=== PATIENT | female | born 1990 | race Two or more races ===

== ENCOUNTER 2020-09-18 14:56 | Outpatient (RCR) | payer OTHER, MEDICAID, SELFPAY ==
--- NOTE | 2020-11-03 09:23 | MHC.OT.DC ---
[address] [phone] F: [phone] Occupational Therapy Discharge Note Provider: Dr. Livingston Diagnosis: Left wrist pain Date of Surgery: Date of Evaluation: 09/18/20 Date of Discharge: Treatments to Date: 1 Cancellations to Date: 0 No Shows to Date: 2 Discharge Status: Visit Non-compliance Discharge Summary: See eval for details Initially required AAROM for wrist and for digit ROM . Improved to WNL after eval and short treatment. Electronically Signed By: Sonal Buckley OT CHT CLT Reviewed/agree with student documentation: N/A Therapist: Please Sign and return to therapist, thank you for your referral.
== END 2020-11-03 09:24 | disposition other institution (70) ==
LOC: HO.OT 14:56
PROVIDERS: PCP Internal Medicine; Visit Provider General Practice
DX: M25.532 Pain in left wrist (principal)
CPT/HCPCS: 97110; 97165

== ENCOUNTER 2022-03-23 14:56 | Emergency (ER) | payer MEDICAID, SELFPAY ==
--- NOTE | ~2022-03-23 | XR_ITS ---
EXAMINATION: XR CHEST CLINICAL INFORMATION: Rule out pneumonia COMPARISON: 11/29/2018 TECHNIQUE: Frontal view of the chest was obtained. FINDINGS: The lungs are clear with no focal consolidation. No evidence of pneumothorax, pulmonary edema, or pleural effusions. The cardiomediastinal silhouette is unremarkable. No acute osseous findings. XR/XR chest 1V IMPRESSION: No acute cardiopulmonary findings.
[2022-03-23 15:17] VITALS: BP 142/92; PULSE 104; RESP 20; TEMP 36.2; O2SAT 100; BMI 39.4
[2022-03-23 15:53] LABS: COVID-19 Test Negative (Negative)
[2022-03-23 19:04] VITALS: BP 132/89; PULSE 98; RESP 20; O2SAT 98
[2022-03-23 22:45] VITALS: BP 123/83; PULSE 99; TEMP 36.2; O2SAT 98
--- NOTE | 2022-03-23 22:52 | ED_ITS ---
HPI - SOB/Dyspnea General Chief Complaint: Dyspnea Stated Complaint: asthma Time Seen by Provider: 03/23/22 22:35 Source: patient Mode of arrival: ambulatory Limitations: no limitations History of Present Illness HPI Narrative: Patient comes to the emergency room complaining of asthma and cough for 2 weeks. Last week patient was prescribed azithromycin, prednisone and Robitussin. Patient states that she has not improved. Patient has been using her albuterol pump every 4-6 hours without any relief. Patient denies fever chills, no chest pain. Related Data Previous Rx's Medication Instructions Recorded albuterol sulfate 90 mcg/actuation 2 puff inhalation Q4-6H PRN 03/23/22 aerosol inhaler shortness of breath or wheezing #8.5 grams benzonatate 100 mg capsule 100 mg PO TID PRN cough #12 caps 03/23/22 prednisone 50 mg tablet 50 mg PO DAILY #5 tabs 03/23/22 Allergies Allergy/AdvReac Type Severity Reaction Status Date / Time No Known Allergies Allergy Unverified 02/03/20 19:18 [No Known Allergies*] Review of Systems Review of Systems: Constitutional : No Weight loss, No Fever, No Chills, No Night Sweats, No Fatigue, No Malaise ENT/Mouth : No Hearing loss, No Ear Pain, No Nasal Congestion, No Sinus Pain, No Hoarseness, No sore throat, No Rhinorrhea, No Swallowing Difficulty Eyes: No Eye Pain, No Swelling, No Redness, No Foreign Body, No Discharge, No Vision Changes Cardiovascular : No Chest Pain, No SOB, No Dyspnea on Exertion, No Orthopnea, No Edema, No Palpitations Respiratory : Complaining of cough, wheezing, shortness of breath Gastrointestinal : No Nausea, No Vomiting, No Diarrhea, No Constipation, No abdominal Pain, No Hematochezia, No Melena Genitourinary : no irregular bleeding, No Dysuria, No Urinary Frequency, No Hematuria, No Urinary Incontinence, No Urgency, No Flank Pain, No Urinary Flow Changes, No Hesitancy Musculoskeletal : No joint pain, No Myalgias, No Joint Swelling Skin : No Skin Lesions, No rash Neuro : No Weakness, No Numbness, No Paresthesias, No Loss of Consciousness, No Dizziness, No Headache Psych : No Anxiety/Panic, No Depression, No SI/HI/AH/VH, No Social Issues, Heme/Lymph: No Bruising, No Bleeding,No Lymphadenopathy Endocrine : No Polyuria, No Polydipsia, No Temperature Intolerance [facility] Past Medical History Medical History (Updated 03/23/22 @ 23:50 by Tiara Perez MD) Asthma Social History Social History Advance Directives: No Advance Directives Information Provided: No Physical Exam Vital Signs: Vital Signs: Last Vital Signs Temp 97.1 F 03/23/22 22:45 Pulse 85 03/23/22 23:01 Resp 18 03/23/22 23:01 BP 123/83 03/23/22 22:45 Pulse Ox 98 03/23/22 22:45 O2 Del Method 03/23/22 22:45 BMI result Body Mass Index 39.4 Const: Other: Appearance: Alert. Oriented X3. No acute distress. Eyes: Pupils equal, round and reactive to light. ENT: Pharynx normal. Patient has nasal condition Neck: Normal inspection. Neck supple. No lymph nodes noted. No crepitus CVS: Normal heart rate and rhythm. Pulses normal. Normal S1 and S2 Respiratory: No respiratory distress. Very mild wheezing bilaterally Abdomen: Soft and nontender. No rigidity. No distention. Skin: Skin warm and dry. Normal skin color. Normal skin turgor. Extremities: No lower extremity edema. No Lacerations. No Rash Neuro: Oriented X 3. No motor deficit. No sensory deficit. Moving all extremities. No slurred speech. CN 2 through 12 grossly intact Psych: calm, cooperative, normal affect Course Course Course Narrative: Patient is being given IV Solu-Medrol, magnesium a nebulization treatments. His chest x-ray pending Patient feeling better, still having hoarse voice, no significant airway inflammation or erythema or exudates. No wheezing, oxygen saturation 100% on room air. Chest x-ray negative for pneumonia. Results discussed with the patient MDM - SOB/Dyspnea Lab Data Labs: Lab Results 03/23/22 Range/Units 15:30 COVID-19 (JOMAR) Negative (Negative) COVID-19 Clin Com See Note Imaging Data Chest x-ray: Radiologist's impression: FINDINGS: The lungs are clear with no focal consolidation. No evidence of pneumothorax, pulmonary edema, or pleural effusions. The cardiomediastinal silhouette is unremarkable. No acute osseous findings. XR/XR chest 1V IMPRESSION: No acute cardiopulmonary findings. ? Discharge Plan Discharge Clinical Impression: Asthma Patient Disposition: Home, Self-Care Instructions: Asthma (ED) Additional Instructions: Please follow-up with your primary care physician tomorrow. If you have any worsening or new symptoms, please return to the emergency room or call 911 Prescriptions: New prednisone 50 mg tablet 50 mg PO DAILY Qty: 5 0RF albuterol sulfate 90 mcg/actuation HFA aerosol inhaler 2 puff inhalation Q4-6H PRN (Reason: shortness of breath or wheezing) Qty: 8.5 0RF benzonatate 100 mg capsule 100 mg PO TID PRN (Reason: cough) Qty: 12 0RF
[2022-03-23] MEDS: Albuterol Sulfate (0.083%) 2.5 MG/3 ML VIAL.NEB 5 MG INHALE (22:59)
[2022-03-23 23:01] VITALS: PULSE 85; RESP 18; O2SAT 100
[2022-03-23] MEDS: Benzonatate 100 MG CAPSULE PO (23:34)
[2022-03-23] MEDS: methylPREDNISolone Sod Succ 125 MG/2 ML VIAL IVPUSH (23:34)
[2022-03-23] MEDS: Magnesium Sulfate/H2O 2 GM/50 ML PIGGYBACK IV (23:37)
--- NOTE | 2022-03-23 23:52 | PC.NURSE ---
pt a&ox3, vss, 20G IV placed left AC, medicated per provider order.
== END 2022-03-24 00:27 | disposition home or self-care (01) ==
PROVIDERS: Emergency Provider Emergency Medicine; PCP Internal Medicine
DX: J45.909 Unspecified asthma, uncomplicated (principal); Z20.822 Contact with and (suspected) exposure to COVID-19
CPT/HCPCS: 71045; 87635; 94640; 96374; 96375; 99284; J2930; J3475

== ENCOUNTER 2022-11-17 16:59 | Emergency (ER) | payer MEDICAID, SELFPAY ==
[2022-11-17 17:41] VITALS: BP 133/92; PULSE 100; RESP 18; TEMP 36.1; O2SAT 99; BMI 39.3
--- NOTE | 2022-11-17 17:44 | ED.GENADULT ---
HPI - General Adult General Chief complaint: Eye Problems Stated complaint: pink eye? swollen? Time Seen by Provider: 11/17/22 22:14 Source: patient Mode of arrival: ambulatory Limitations: no limitations History of Present Illness HPI narrative: 31-year-old female came in for evaluation of right eye pain, redness, discharge, eyelid stickingx 1 day, no sick contact, no trauma, no exposure to somebody with eye infection, do not wear contact lenses, do not wear eyeglasses. Related Data Previous Rx's Medication Instructions Recorded albuterol sulfate 90 mcg/actuation 2 puff inhalation Q4-6H PRN 03/23/22 aerosol inhaler shortness of breath or wheezing #8.5 grams benzonatate 100 mg capsule 100 mg PO TID PRN cough #12 caps 03/23/22 prednisone 50 mg tablet 50 mg PO DAILY #5 tabs 03/23/22 erythromycin 5 mg/gram (0.5 %) eye 0.5 inch ophthalmic (eye) QID #3.5 11/17/22 ointment grams Allergies Allergy/AdvReac Type Severity Reaction Status Date / Time latex Allergy Rash Verified 11/17/22 17:41 Review of Systems Review of Systems: All other systems are reviewed and are negative Constitutional: Reports as per HPI and Reports no additional constitutional complaints Eyes: Reports as per HPI and Reports no additional eye complaints Reports system reviewed and no additional complaints, except as documented Cardiovascular: Reports as per HPI and Reports no additional cardiovascular complaints Respiratory: Reports as per HPI and Reports no additional respiratory complaints Gastrointestinal: Reports as per HPI and Reports no additional gastrointestinal complaints Genitourinary: Reports no additional female genitourinary complaints Musculoskeletal: Reports no additional musculoskeletal complaints Skin/Breast: Reports system reviewed and no additional complaints, except as docu Psychiatric: Reports no additional psychiatric complaints Endocrine: Reports no additional endocrine complaints Hematologic/Lymphatic: Reports no additional hematologic/lymphatic complaints Allergic/Immunologic: Reports no additional allergic/immunologic complaints Reports system reviewed and no additional complaints, except as documented and Reports Abnormal speech present [facility] Past Medical History Medical History Asthma Social History Social History Advance Directives: No Advance Directives Information Provided: No Physical Exam ED Vital Signs: Vital Signs - 24 hr 11/17/22 17:41 Temperature 96.9 F Pulse Rate 100 Respiratory Rate 18 Blood Pressure 133/92 H Pulse Oximetry 99 Oxygen Delivery Method Room Air BMI result Body Mass Index 39.3 Vital signs have been reviewed as appeared to be correct. Blood pressure normal. Heart rate normal. Respiration rate normal. Temperature normal. Oxygen saturation normal. Appearance: Alert. Oriented X3. No acute distress. Head: Normal external exam. Normocephalic. Atraumatic. No Austin signs noted. No raccoon eyes noted Eyes: PERRLA. EOMI. Conjunctiva and sclera normal. Eyelids normal, right eye redness, with discharge, no corneal fluorescein uptake, no foreign body, IOP in the right eye is 12 ENT: TM's Normal. Pharynx normal. Uvula midline. Moist mucous membranes. No trismus noted. No drooling noted. No muffled voice noted. Neck: Normal inspection. Neck supple. FROM. No adenopathy. Thyroid Normal. No meningeal signs. No neck mass noted. CVS: Normal heart rate and rhythm. Heart sound normal. No murmurs noted. Pulses normal throughout. Respiratory: No respiratory distress. Painless inspiration. Breath sounds normal. No wheezes/rales/rhonchi noted. Chest nontender. No accessory muscle usage noted or decreased air movement noted. Abdomen: Soft and nontender. Bowel sounds normal in all 4 quadrants. No distention noted. No organomegaly noted. No visible injury noted. Back: No CVA tenderness. Full range of motion noted. Skin: Skin warm and dry. Normal skin color. Normal skin turgor. No rashes/lesions/lacerations noted. Extremities: No lower extremity edema. Extremities exhibit normal range of motion. Extremities nontender. Neuro: Oriented X 3. Cranial nerve exam: II-XII are grossly intact No motor deficit. No sensory deficit. Reflexes normal. Course Course Course Narrative: RME: 31 yold female presents to the ED for right right eye redness, itchiness, and eye dischargee. patient denies any trauma. Evaluated in [facility] Reevaluation(s) Reevaluation #1: Right conjunctivitis, start the patient on erythromycin, instructed to do frequent hand wash. Medications Administered Discontinued Medications Generic Name Dose Route Start Last Admin Trade Name Freq PRN Reason Stop Dose Admin Erythromycin 1 cm 11/17/22 22:23 07/02/23 22:27 Erythromycin Base 0.5% Oph Oin 1 Gm Tube EYE-RIGHT 11/17/22 22:24 1 cm ONCE ONE Administration Erythromycin 1 cm 11/17/22 22:22 11/17/22 22:27 Erythromycin Base 0.5% Oph Oin 1 Gm Tube EYE-RIGHT 11/17/22 22:23 1 cm ONCE ONE Administration Medical Decision Making Differential Diagnosis Differential Diagnoses: The differential diagnosis associated with the presentation includes (Corneal abrasion, conjunctivitis.) Discharge Plan Discharge Clinical Impression: Conjunctivitis Patient Disposition: Home, Self-Care Instructions: Conjunctivitis (ED) Prescriptions: New erythromycin 5 mg/gram (0.5 %) ointment 0.5 inch ophthalmic (eye) QID Qty: 3.5 0RF Rx Instructions: Apply to the right eye every 6 hours when awake for 5 days. No Action prednisone 50 mg tablet 50 mg PO DAILY Qty: 5 0RF albuterol sulfate 90 mcg/actuation HFA aerosol inhaler 2 puff inhalation Q4-6H PRN (Reason: shortness of breath or wheezing) Qty: 8.5 0RF benzonatate 100 mg capsule 100 mg PO TID PRN (Reason: cough) Qty: 12 0RF Referrals: Marisa Livingston MD [Primary Care Provider] - Stand Alone Forms: Work/School Release Interventions: ED Discharge Assessment Last Done: 11/17/22 23:22 Discharge Date/Time: 11/17/22 23:24
--- NOTE | 2022-11-17 22:30 | PC.NURSE ---
pt medicated per KIYA w/ erythromycin eye ointment- pt pending disposition
== END 2022-11-17 23:24 | disposition home or self-care (01) ==
PROVIDERS: Emergency Provider Emergency Medicine; PCP Internal Medicine
DX: H57.11 Ocular pain, right eye (principal); H10.9 Unspecified conjunctivitis
CPT/HCPCS: 99282; 99283

== ENCOUNTER 2022-12-09 13:20 | Outpatient (REF) | payer MEDICAID, SELFPAY ==
[2022-12-09 16:18] LABS: MANUAL DIFF FLAG NO
[2022-12-09 16:31] LABS: Basophils Percent Auto 0.5 % (0-2); Eosinophils Absolute Auto 0.4 X10*3/uL (0.0-0.4); Eosinophils Percent Auto 7.3 % (0-4); Hematocrit 31.9 % (37.0-47.0); Hemoglobin 9.4 g/dl (12.0-16.0); Imm Gran Abs Auto 0.01 X10*3/uL (0.00-0.03); Imm Gran Pct Auto 0.2 % (0.0-0.4); Lymphocytes Absolute Auto 1.5 X10*3/uL (1.2-4.9); Lymphocytes Percent Auto 25.2 % (20-40); Mean Corpuscular HGB Conc 29.5 g/dl (31.0-35.0); Mean Corpuscular Volume 67.9 fL (80.0-98.0); Mean Platelet Volume 10.3 fL (9.4-12.3); Monocytes Absolute Auto 0.6 X10*3/uL (0.1-1.2); Monocytes Percent Auto 9.3 % (2-11); Neutrophils Absolute Auto 3.4 x10*3/uL (2.0-8.3); Neutrophils Percent Auto 57.5 % (45-73); Platelet Count 316 X10*3/uL (160-400); Red Cell Distribution Width 17.2 % (11.0-16.0)
[2022-12-09 16:48] LABS: Estimated Average Glucose 100 mg/dL; Hemoglobin A1c % 5.1 %
[2022-12-09 16:55] LABS: Alanine Aminotransferase 13 U/L (0-31); Albumin Level 4.3 g/dL (3.5-5.0); Alkaline Phosphatase 62 U/L (39-117); Anion Gap 10 (12-20); Aspartate Amino Transferase 14 U/L (5-31); Bilirubin Direct 0.3 mg/dL (0.0-0.5); Bilirubin Total 0.6 mg/dL (0.0-1.0); Blood Urea Nitrogen 10 mg/dL (9-16); Calcium 9.5 mg/dL (8.4-10.2); Carbon Dioxide 29 mmol/L (22-29); Chloride 107 mmol/L (96-108); Cholesterol 114 mg/dL; Estimated Glomerular Filt Rate > 60; Glucose Random 89 mg/dL (60-115); HDL Cholesterol 38 mg/dL; Iron 23 mcg/dL (30-160); LDL Cholesterol Calculated 65 mg/dl; Percent Iron Saturation 7 % (15-50); Potassium 3.8 mmol/L (3.3-5.1); Sodium 142 mmol/L (135-145); Total Iron Binding Capacity 343 mcg/dL (228-428); Total Protein 7.5 g/dL (6.5-8.0); Triglycerides 56 mg/dL; Unsaturated Iron Binding 320 ug/dL
[2022-12-09 17:02] LABS: Ferritin 5 ng/mL (10-122); TSH reflex Free T4 0.79 uIU/mL (0.32-4.0); Vitamin D 25-OH Total 11.4 ng/mL (>30)
[2022-12-10 06:12] LABS: HIV AB/AG Nonreactive (Nonreactive); HIV Num 1 0.04 S/CO (0.00-0.99)
[2022-12-10 22:49] LABS: Rubella IgG Antibody 8.65 Index
[2022-12-11 08:51] LABS: Syphilis Screen Nonreactive (Nonreactive)
[2022-12-11 22:59] LABS: TS Negative Control Passed; TS Panel A 0; TS Panel B 0; TS Positive Control Passed; TSpotTB Negative (Negative)
== END 2022-12-09 13:21 | disposition home or self-care (01) ==
LOC: HO.HHCL 13:20
PROVIDERS: Visit Provider Internal Medicine
DX: Z00.00 Encounter for general adult medical examination without abnormal findings (principal); Z11.1 Encounter for screening for respiratory tuberculosis; Z11.4 Encounter for screening for human immunodeficiency virus [HIV]; E66.09 Other obesity due to excess calories; J45.40 Moderate persistent asthma, uncomplicated; N93.9 Abnormal uterine and vaginal bleeding, unspecified
CPT/HCPCS: 36415; 80053; 80061; 82248; 82306; 82728; 83036; 83540; 84443; 85025; 86481; 86735; 86762; 86765; 86780; 87389

== ENCOUNTER 2023-01-09 14:34 | Outpatient (AMB) | payer MEDICAID, SELFPAY ==
--- NOTE | 2023-01-09 14:42 | A.OFFVIS_ITS ---
Intake Vital Signs 01/09/23 14:43 Height 5 ft 4 in Weight 220 lb 7.396 oz BMI 37.8 BP 119/70 Blood Pressure Location Lt brachial Position Sitting Pulse 83 Pulse Source Pulse Oximeter Pulse Oximetry (%) 100 Oxygen Delivery Method Room Air Intake Visit Reasons: Shortness of breath Allergies latex Allergy (Verified 01/09/23 14:47) Rash HPI Shortness of breath HPI Details 32-year-old lady, nonsmoker, with underlying history what appears to be moderate persistent asthma referred for pulmonary evaluation. Patient states that previously his symptoms were not well controlled with Flovent, however she has been switched to Advair by her primary care provider and she reports much better symptom control. She only uses her albuterol once a day. Patient has unspecified history of lung disease in her mother with now . She denies exposure to industrial dusts. Patient does not have pets. She does complain of multiple environmental allergies. [facility] Medical History Asthma Social History (Updated 01/09/23 @ 14:50 by Mercedes Martin [facility]) Patient Tobacco Use Status: Former Tobacco user Review of Systems Const Denies daytime sleepiness, Denies excessive sweating, Denies fatigue, Denies fever(s), Denies lethargy, Denies malaise, Denies night sweats, Denies snoring and Denies weight loss Eyes Denies blurry vision and Denies itchy eyes ENT Denies nasal congestion, Denies post nasal drip, Denies sinus pain, Denies sinus pressure and Denies other ( Thrush) Card Denies chest pain, Denies pedal edema, Denies dyspnea, Denies orthopnea and Denies paroxysmal nocturnal dyspnea Resp Denies cough, Denies hemoptysis, Denies excessive phlegm production, Denies dyspnea, Denies snoring and Denies wheezing GI Denies abdominal pain and Denies heartburn Musc Denies myalgias, Denies arthralgias and Denies joint swelling Skin/Breast Denies rash Neuro Denies memory loss and Denies seizure-like activity Psych Denies abnormal sleep pattern, Denies anxiety and Denies memory loss Endo Denies excessive sweating, Denies fatigue and Denies heat intolerance Rick/Lymph Denies easy bruising Aller/Immun Denies itchy eyes, Denies seasonal rhinorrhea and Denies wheezing Physical Exam Vital Signs: Last Vital Signs Pulse 83 01/09/23 14:43 BP 119/70 01/09/23 14:43 Pulse Ox 100 01/09/23 14:43 Oxygen Delivery Method Room Air 01/09/23 14:43 BMI result Body Mass Index 37.8 Const General: no acute distress and alert Nutritional Appearance: obese Orientation/consciousness: Other orientation findings ( oriented) HEENT Head: Yes atraumatic Eyes General: appearance normal, both eyes and all related structures Sclerae: sclerae normal EOM: EOMs intact bilaterally Neck Neck: Yes supple Lymphatic: no lymphadenopathy noted Resp Effort & Inspection: normal respiratory effort and no use of accessory muscles Auscultation: clear to auscultation bilaterally Cardio Rate: regular rate Rhythm: regular rhythm Heart sounds: no gallops, no murmurs and no rubs Skin General skin exam: other ( warm) Extrem General: No clubbing, No cyanosis and No edema Assessment & Plan Assessment & Plan (1) Environmental allergies: Code(s): Z91.09 - Other allergy status, other than to drugs and biological substances Plan: Will obtain RAST, CBC differential, and IgE level for further evaluation. (2) Asthma: Code(s): J45.909 - Unspecified asthma, uncomplicated Plan: Reasonably well controlled current regimen of albuterol MDI and Advair. Continue current regimen. Will obtain full PFT. Orders: Orders Rast Allergen Today J45.909 - Unspecified asthma, uncomplicated Complete Blood Count Auto Diff Today J45.909 - Unspecified asthma, uncomplicated Coding Level of Care Code New Pt Level 4 (39536) Diagnoses Environmental allergies Z91.09 Asthma J45.909
[2023-01-09 14:43] VITALS: BP 119/70; PULSE 83; O2SAT 100; BMI 37.8
== END 2023-01-09 15:11 | disposition home or self-care (01) ==
PROVIDERS: PCP Internal Medicine; Visit Provider Internal Medicine Pulmonary Disease
DX: Z91.09 Other allergy status, other than to drugs and biological substances (principal); J45.909 Unspecified asthma, uncomplicated
CPT/HCPCS: 99204

== ENCOUNTER 2023-01-09 14:34 | Outpatient (REF) | payer MEDICAID, SELFPAY ==
[2023-01-09 15:31] LABS: MANUAL DIFF FLAG NO
[2023-01-09 15:52] LABS: Basophils Percent Auto 0.4 % (0-2); Eosinophils Absolute Auto 0.5 X10*3/uL (0.0-0.4); Eosinophils Percent Auto 7.5 % (0-4); Hematocrit 32.2 % (37.0-47.0); Hemoglobin 9.8 g/dl (12.0-16.0); Imm Gran Abs Auto 0.01 X10*3/uL (0.00-0.03); Imm Gran Pct Auto 0.1 % (0.0-0.4); Lymphocytes Absolute Auto 1.9 X10*3/uL (1.2-4.9); Lymphocytes Percent Auto 27.7 % (20-40); Mean Corpuscular HGB Conc 30.4 g/dl (31.0-35.0); Mean Corpuscular Hemoglobin 21.4 pg (27.0-33.0); Mean Corpuscular Volume 70.2 fL (80.0-98.0); Mean Platelet Volume 9.8 fL (9.4-12.3); Monocytes Absolute Auto 0.7 X10*3/uL (0.1-1.2); Monocytes Percent Auto 9.5 % (2-11); Neutrophils Absolute Auto 3.7 x10*3/uL (2.0-8.3); Neutrophils Percent Auto 54.8 % (45-73); Platelet Count 277 X10*3/uL (160-400); Red Blood Count 4.59 X10*6/uL (4.20-5.50); Red Cell Distribution Width 21.8 % (11.0-16.0); White Blood Count 6.8 X10*3/uL (4.8-10.8)
== END 2023-01-09 14:35 | disposition home or self-care (01) ==
LOC: HO.LAB 14:34
PROVIDERS: PCP Internal Medicine; Visit Provider Internal Medicine Pulmonary Disease
DX: J45.909 Unspecified asthma, uncomplicated (principal); Z91.09 Other allergy status, other than to drugs and biological substances
CPT/HCPCS: 36415; 82785; 85025; 86003; 99202

== ENCOUNTER 2023-02-03 08:28 | Outpatient (REF) | payer MEDICAID, SELFPAY ==
--- NOTE | 2023-02-03 10:14 | PFT_ITS ---
FLOWS: 1. FEV1 71% of predicted at 2.24 L. 2. FVC 68% of predicted at 2.54 L. 3. FEV1 to FVC ratio of 0.88. 4. No bronchodilator response. LUNG VOLUMES: 1. Total lung capacity 68% of predicted at 3.46 L. 2. Residual volume 85% of predicted at 1.25 L. 3. Slow vital capacity 61% of predicted at 2.30 L. 4. Expiratory reserve volume 19% of predicted at 0.26 L. 5. Diffusion capacity is mildly decreased, diffusion capacity corrects to normal after adjustment for alveloar ventilation. IMPRESSION: Moderate restrictive ventilatory defect with no bronchodilator response. Decreased expiratory reserve volume suggests extrathoracic restriction secondary to abdominal obesity. Decreased diffusion capacity suggests emphysema. Seymour Parada MD AP/MODL / [id number]
== END 2023-02-03 08:29 | disposition home or self-care (01) ==
LOC: HO.RESP 08:28
PROVIDERS: PCP Internal Medicine; Visit Provider Internal Medicine Pulmonary Disease
DX: J45.909 Unspecified asthma, uncomplicated (principal)
CPT/HCPCS: 94010; 94727; 94729

== ENCOUNTER → 2023-02-03 10:14 | Outpatient (BNV) | payer MEDICAID, SELFPAY | PROVIDERS: PCP Internal Medicine; Visit Provider Internal Medicine Pulmonary Disease | DX: J45.909 Unspecified asthma, uncomplicated (principal) | CPT/HCPCS: 94060; 94727; 94729 ==

== ENCOUNTER 2023-02-12 12:52 | Outpatient (AMB) | payer MEDICAID, SELFPAY ==
[2023-02-12 12:58] VITALS: BP 118/82; PULSE 93; O2SAT 100; BMI 35.9
--- NOTE | 2023-02-12 12:58 | MHC.OFFVIS ---
Intake Vital Signs 02/12/23 12:58 Height 5 ft 4 in Weight 209 lb 7.026 oz BMI 35.9 BP 118/82 Blood Pressure Location Rt brachial Position Sitting Pulse 93 Pulse Source Doppler Pulse Oximetry (%) 100 Oxygen Delivery Method Room Air Intake Visit Reasons: Shortness of breath Allergies latex Allergy (Verified 01/09/23 14:47) Rash HPI Shortness of breath HPI Details 32-year-old lady, nonsmoker, followed for underlying severe persistent asthma and environmental allergies. At the last office visit patient completed her pulmonary function test and immunologic testing. She has been using high-dose Advair 230 with suboptimal control of his symptoms. She denies acute exacerbations. [facility] Medical History Asthma Social History Patient Tobacco Use Status: Former Tobacco user Review of Systems Const Denies daytime sleepiness, Denies excessive sweating, Denies fatigue, Denies fever(s), Denies lethargy, Denies malaise, Denies night sweats, Denies snoring and Denies weight loss Eyes Denies blurry vision and Denies itchy eyes ENT Denies nasal congestion, Denies post nasal drip, Denies sinus pain, Denies sinus pressure and Denies other ( Thrush) Card Denies chest pain, Denies pedal edema, Denies dyspnea, Reports dyspnea on exertion, Denies orthopnea and Denies paroxysmal nocturnal dyspnea Resp Denies cough, Denies hemoptysis, Denies excessive phlegm production, Denies dyspnea, Reports dyspnea on exertion, Denies snoring and Reports wheezing GI Denies abdominal pain and Denies heartburn Musc Denies myalgias, Denies arthralgias and Denies joint swelling Skin/Breast Denies rash Neuro Denies memory loss and Denies seizure-like activity Psych Denies abnormal sleep pattern, Denies anxiety and Denies memory loss Endo Denies excessive sweating, Denies fatigue and Denies heat intolerance Rick/Lymph Denies easy bruising Aller/Immun Denies itchy eyes, Denies seasonal rhinorrhea and Reports wheezing Physical Exam Vital Signs: Last Vital Signs Pulse 93 02/12/23 12:58 BP 118/82 02/12/23 12:58 Pulse Ox 100 02/12/23 12:58 Oxygen Delivery Method Room Air 02/12/23 12:58 BMI result Body Mass Index 35.9 Const General: no acute distress and alert Nutritional Appearance: obese Orientation/consciousness: Other orientation findings ( oriented) HEENT Head: Yes atraumatic Eyes General: appearance normal, both eyes and all related structures Sclerae: sclerae normal EOM: EOMs intact bilaterally Neck Neck: Yes supple Lymphatic: no lymphadenopathy noted Resp Effort & Inspection: normal respiratory effort and no use of accessory muscles Auscultation: clear to auscultation bilaterally Cardio Rate: regular rate Rhythm: regular rhythm Heart sounds: no gallops, no murmurs and no rubs Skin General skin exam: other ( warm) Extrem General: No clubbing, No cyanosis and No edema Assessment & Plan Assessment & Plan (1) Asthma: Code(s): J45.909 - Unspecified asthma, uncomplicated Plan: Suboptimal control on Advair 230 and albuterol MDI. Will request Fasenra approval. (2) Environmental allergies: Code(s): Z91.09 - Other allergy status, other than to drugs and biological substances Plan: Results of IgE, CBC with differential, and RAST panel reviewed. Underlying significant eosinophilia. Expect to improve on Fasenra. Medications: Changed From fluticasone propion-salmeterol 230-21 mcg/actuation (Advair HFA) 2 puffs inhalation To fluticasone propion-salmeterol 230-21 mcg/actuation (Advair HFA) 2 puffs inhalation BID 12 grams 6RF 30 days Coding Level of Care Code Est Pt Level 4 (87777) Diagnoses Asthma J45.909 Environmental allergies Z91.09
== END 2023-02-12 13:15 | disposition home or self-care (01) ==
PROVIDERS: PCP Internal Medicine; Visit Provider Internal Medicine Pulmonary Disease
DX: J45.909 Unspecified asthma, uncomplicated (principal); Z91.09 Other allergy status, other than to drugs and biological substances
CPT/HCPCS: 99214

== ENCOUNTER → 2023-02-12 12:52 | Outpatient (BNVA) | payer MEDICAID, SELFPAY | PROVIDERS: PCP Internal Medicine; Visit Provider Internal Medicine Pulmonary Disease | DX: J45.909 Unspecified asthma, uncomplicated (principal); Z91.09 Other allergy status, other than to drugs and biological substances | CPT/HCPCS: 99212 ==

== ENCOUNTER 2023-05-13 17:00 | Outpatient (RCR) | payer MEDICAID, SELFPAY | END 2023-05-28 12:32 | disposition home or self-care (01) | LOC: HO.PT 17:00 | PROVIDERS: PCP Internal Medicine; Visit Provider Internal Medicine | DX: M25.512 Pain in left shoulder (principal); G89.29 Other chronic pain | CPT/HCPCS: 97110; 97162 ==

== ENCOUNTER 2023-06-25 13:19 | Outpatient (AMB) | payer MEDICAID, SELFPAY ==
--- NOTE | 2023-06-25 13:30 | MHC.OFFVIS ---
Intake Vital Signs 06/25/23 13:32 Height 5 ft 4 in Weight 195 lb 1.745 oz BMI 33.5 BP 118/78 Blood Pressure Location Rt brachial Position Sitting Pulse 96 Pulse Source Doppler Pulse Oximetry (%) 100 Oxygen Delivery Method Room Air Intake Visit Reasons: Shortness of breath Pl Sql Developer Required: Yes Pl Sql Developer Name: Mercedes Manfred Pathak Allergies latex Allergy (Verified 06/25/23 13:32) Rash HPI Shortness of breath HPI Details 32-year-old lady, nonsmoker, followed for underlying severe persistent asthma and environmental allergies. A she has been using Advair and albuterol MDI with suboptimal control his symptoms. She was approved for Fasenra, however she has not started it yet. She denies an acute exacerbation. [facility] Medical History Asthma Social History (Reviewed 06/25/23 @ 13:33 by Mercedes Martin [facility]) Patient Tobacco Use Status: Former Tobacco user Review of Systems Const Denies daytime sleepiness, Denies excessive sweating, Denies fatigue, Denies fever(s), Denies lethargy, Denies malaise, Denies night sweats, Denies snoring and Denies weight loss Eyes Denies blurry vision and Denies itchy eyes ENT Denies nasal congestion, Denies post nasal drip, Denies sinus pain, Denies sinus pressure and Denies other ( Thrush) Card Denies chest pain, Denies pedal edema, Reports dyspnea, Denies orthopnea and Denies paroxysmal nocturnal dyspnea Resp Denies cough, Denies hemoptysis, Denies excessive phlegm production, Reports dyspnea, Denies snoring and Denies wheezing GI Denies abdominal pain and Denies heartburn Musc Denies myalgias, Denies arthralgias and Denies joint swelling Skin/Breast Denies rash Neuro Denies memory loss and Denies seizure-like activity Psych Denies abnormal sleep pattern, Denies anxiety and Denies memory loss Endo Denies excessive sweating, Denies fatigue and Denies heat intolerance Rick/Lymph Denies easy bruising Aller/Immun Denies itchy eyes, Denies seasonal rhinorrhea and Denies wheezing Physical Exam Vital Signs: Last Vital Signs Pulse 96 06/25/23 13:32 BP 118/78 06/25/23 13:32 Pulse Ox 100 06/25/23 13:32 Oxygen Delivery Method Room Air 06/25/23 13:32 BMI result Body Mass Index 33.5 Const General: no acute distress and alert Nutritional Appearance: not obese Orientation/consciousness: Other orientation findings ( oriented) HEENT Head: Yes atraumatic Eyes General: appearance normal, both eyes and all related structures Sclerae: sclerae normal EOM: EOMs intact bilaterally Neck Neck: Yes supple Lymphatic: no lymphadenopathy noted Resp Effort & Inspection: normal respiratory effort and no use of accessory muscles Auscultation: clear to auscultation bilaterally Cardio Rate: regular rate Rhythm: regular rhythm Heart sounds: no gallops, no murmurs and no rubs Skin General skin exam: other ( warm) Extrem General: No clubbing, No cyanosis and No edema Assessment & Plan Assessment & Plan (1) Asthma: Code(s): J45.909 - Unspecified asthma, uncomplicated Plan: Suboptimal control on Advair and albuterol MDI. Patient was approved, however has not started Fasenra yet. Expect to improve on Fasenra. (2) Environmental allergies: Code(s): Z91.09 - Other allergy status, other than to drugs and biological substances Plan: Suboptimally controlled. Expect to improve on Fasenra. Coding Level of Care Code Est Pt Level 4 (09305) Diagnoses Asthma J45.909 Environmental allergies Z91.09
[2023-06-25 13:32] VITALS: BP 118/78; PULSE 96; O2SAT 100; BMI 33.5
== END 2023-06-25 13:45 | disposition home or self-care (01) ==
PROVIDERS: PCP Internal Medicine; Visit Provider Internal Medicine Pulmonary Disease
DX: J45.909 Unspecified asthma, uncomplicated (principal); Z91.09 Other allergy status, other than to drugs and biological substances
CPT/HCPCS: 99214

== ENCOUNTER → 2023-06-25 13:19 | Outpatient (BNVA) | payer MEDICAID, SELFPAY | PROVIDERS: PCP Internal Medicine; Visit Provider Internal Medicine Pulmonary Disease | DX: J45.909 Unspecified asthma, uncomplicated (principal); Z91.09 Other allergy status, other than to drugs and biological substances | CPT/HCPCS: 99212 ==

== ENCOUNTER 2023-08-05 14:03 | Outpatient (AMB) | payer MEDICAID, SELFPAY ==
[2023-08-05 14:11] VITALS: BP 114/72; BMI 31.2
--- NOTE | 2023-08-05 14:11 | A.OFFVIS_ITS ---
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 Irregular Bleeding/HHC Ref Allergies latex Allergy (Verified 08/05/23 14:19) Rash Medication List - Last Reconciled 08/05/23 by Amaris Salgado CNM albuterol sulfate 90 mcg/actuation 2 puffs inhalation Q4-6H PRN aripiprazole 5 mg PO DAILY benralizumab (Fasenra Pen) 30 mg subcut Q8W 28 days benzonatate 100 mg PO TID PRN bupropion HCl 150 mg PO DAILY fluticasone propion-salmeterol 230-21 mcg/actuation (Advair HFA) 2 puffs inhalation BID 30 days oxcarbazepine 150 mg PO BID prednisone 50 mg PO DAILY sumatriptan succinate 0 mg PO DAILY trazodone 50 mg PO DAILY PRN Is last menstrual period known: Yes (07/17/23) Last menstrual period: 07/17/23 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 She says she was referred by her primary care provider at the [facility] because she had irregular periods also she has not had a Pap smear for at least 5 years. The last time she had any OBGYN care was with her last she started care when she went to the hospital with pain and they found out she was early and set her up for an ultrasound and that is when they discovered the baby had anomalies and she was too high risk to go to [place] and they sent her to [facility] her baby was born at 40 weeks but was very tiny and was in NICU for ages in ages. He has a very rare syndrome where he is blind and does not grow and does not speak he can smile. She says they are only 5 children in the [place] and he is the only 1 in the [place] with this particular syndrome so they do not even have a name for it. She does have a nurse that comes and cares for him and helps although he is with his father right now. She has 5 other children and had 1 miscarriage. They think about having another baby but she wants to make sure everything is okay. She is anemic and when she gets her. She feels even weaker right now she is on iron twice a day her last blood count was in December and it was 9 and 32 and she showed it to me on her phone. She is also received iron transfusions in the [facility] as well. She normally gets periods monthly but for a long time she has been getting maybe 4 or 5 periods a year that bleed for few days and then stop and then start again and they are all very painful. She says the last time she had sex was 2-3 months ago so she knows she has not . [facility] Medical History Asthma Social History (Updated 08/05/23 @ 14:20 by Karen Tim MA) Household Members: Children Housing: House Alcohol intake: never Patient Tobacco Use Status: Former Tobacco user Use of substances other than those prescribed or required for medical reasons: No Female Reproductive History Menstrual Age of Menarche: 5 Duration of menses: 6-7 days Date of last menstrual period: 07/17/23 control method: none Total pregnancies: 6 Full term: 5 Ab spontaneous: 1 Date of last pap smear: 09/17/17 History of abnormal pap smear: No Physical Exam Vital Signs: Last Vital Signs BP 114/72 08/05/23 14:11 BMI result Body Mass Index 31.2 Const General: healthy appearing, comfortable, no acute distress, well developed and alert Nutritional Appearance: average body habitus Orientation/consciousness: patient oriented x3 Limitations: no limitations HEENT Head: Yes normocephalic Neck Neck: Yes normal visual inspection Chest Chest palpation & inspection: normal inspection of the chest Breast/axilla inspection: normal inspection of the breasts and normal inspection of the axillae Breast/axilla palpation: normal palpation of the breasts and normal palpation of the axillae Resp Effort & Inspection: normal respiratory effort GI Inspection: Yes normal to inspection, No Abdominal wall edema and No distended Palpation (GI): Soft to palpation and nontender General: Yes bladder normal to palpation External Female Exam: normal external appearance and normal appearance of the urethra Speculum Exam - Vagina: normal appearance of the vagina, normal palpation and normal vaginal discharge Speculum Exam - Cervix: normal appearance of the cervix, normal palpation and nontender Bimanual exam- vagina & uterus: normal bimanual exam, normal palpation, uterine size normal, bladder normal to palpation, consistency normal, normal palpation, uterine mobility normal, uterine shape normal, No Cervical tenderness present, non-tender and no cervical motion tenderness Bimanual Exam- Adnexa, other: normal adnexae, no masses, normal and No adnexal tenderness Neuro General: patient oriented x3 Results Reviewed Results Reviewed: CBC from her primary care provider at the [facility] on her phone equals 9.0 and 32.2 done in December 2022. Assessment & Plan Assessment & Plan (1) Other specified irregular menstruation: Code(s): N92.5 - Other specified irregular menstruation (2) Bulky or enlarged uterus: Code(s): N85.2 - Hypertrophy of uterus (3) Anemia: Code(s): D64.9 - Anemia, unspecified (4) Cervical cancer screening: Code(s): Z12.4 - Encounter for screening for malignant neoplasm of cervix (5) Well woman exam with routine gynecological exam: Code(s): Z01.419 - Encounter for gynecological examination (general) (routine) without abnormal findings (6) Family planning education, guidance, and counseling: Code(s): Z30.09 - Encounter for other general counseling and advice on contraception (7) Dysmenorrhea, unspecified: Code(s): N94.6 - Dysmenorrhea, unspecified Plan -----Discussed in this visit the following: healthy balanced diet, regular and consistent exercise, getting recommended health screens, doing the best she can for her particular health concerns, kegel exercises, pap smear screening and followup recommendations, mammography screening and SBE, normal changes in cycles in her life stage--- . Pap smear was done cultures for infection was done. Congratulated her on her weight loss she finished losing the weight she thinks about a year ago she lost about 60 lb by eating healthier cutting out soda etc. she worked with a vice president global advertising sales here at the [facility]. She might want to have a baby when she finds out for sure that everything is okay with her but she wants to get that checked out 1st we will start today with an ultrasound to check on her slightly bulky uterus and I explained that the most common finding might be fibroids in that could explain more painful periods as well. Additionally I am repeating the CBC and obtaining a TSH. Today she had extremely fertile mucus so I did some Education around that when she sees and observes this kind of cervical mucus if she has not ready to get she should avoid intercourse in those times. I will see her after the ultrasound and labs,. Also discussed that when she is done or at least temporarily for a few years done with childbearing sometimes a Mirena IU S can help manage her periods in terms of dysmenorrhea and the occasional unusual period Where it stops and then starts again. Orders: Orders Bacterial Vaginosis Panel Today Z01.419 - Encounter for gynecological examination (general) (routine) without abnormal findings CT NG by PCR Today Z01.419 - Encounter for gynecological examination (general) (routine) without abnormal findings Pap Smear Today Z01.419 - Encounter for gynecological examination (general) (routine) without abnormal findings Complete Blood Count no Diff Today D64.9 - Anemia, unspecified, N85.2 - Hypertrophy of uterus, N92.5 - Other specified irregular menstruation, Z12.4 - Encounter for screening for malignant neoplasm of cervix Thyroid Stimulating Hormone Today D64.9 - Anemia, unspecified, N92.5 - Other specified irregular menstruation US pelvic and transvaginal Today D64.9 - Anemia, unspecified, N85.2 - Hypertrophy of uterus, N92.5 - Other specified irregular menstruation, Z12.4 - Encounter for screening for malignant neoplasm of cervix Coding Level of Care Code New Pt Prev Care 18-39yr([id number] Diagnoses Other specified irregular menstruation N92.5 Bulky or enlarged uterus N85.2 Anemia D64.9 Cervical cancer screening Z12.4 Well woman exam with routine gynecological exam Z01.419 Family planning education, guidance, and counseling Z30.09 Dysmenorrhea, unspecified N94.6
== END 2023-08-05 15:54 | disposition home or self-care (01) ==
PROVIDERS: PCP Internal Medicine; Visit Provider Advanced Practice Midwife
DX: N92.5 Other specified irregular menstruation (principal); N85.2 Hypertrophy of uterus; D64.9 Anemia, unspecified; Z12.4 Encounter for screening for malignant neoplasm of cervix; Z01.419 Encounter for gynecological examination (general) (routine) without abnormal findings; Z30.09 Encounter for other general counseling and advice on contraception; N94.6 Dysmenorrhea, unspecified
CPT/HCPCS: 99385

== ENCOUNTER 2023-08-05 14:03 | Outpatient (REF) | payer MEDICAID, SELFPAY ==
[2023-08-12 12:38] LABS: HPV mRNA E6/E7 rflx Not Detected (Not Detected)
== END 2023-08-05 14:04 | disposition home or self-care (01) ==
LOC: HO.LNP 14:03
PROVIDERS: PCP Internal Medicine; Visit Provider Advanced Practice Midwife
DX: Z01.419 Encounter for gynecological examination (general) (routine) without abnormal findings (principal); Z12.4 Encounter for screening for malignant neoplasm of cervix; D64.9 Anemia, unspecified; N85.2 Hypertrophy of uterus; N92.5 Other specified irregular menstruation
CPT/HCPCS: 0353U; 36415; 84443; 85027; 87480; 87510; 87624; 87660; 88142; 99385

== ENCOUNTER 2023-08-05 15:54 | Outpatient (REF) | payer MEDICAID, SELFPAY ==
[2023-08-05 17:35] LABS: Hematocrit 29.2 % (37.0-47.0); Hemoglobin 8.4 g/dl (12.0-16.0); Mean Corpuscular HGB Conc 28.8 g/dl (31.0-35.0); Mean Corpuscular Hemoglobin 18.7 pg (27.0-33.0); Mean Platelet Volume 10.6 fL (9.4-12.3); Platelet Count 369 X10*3/uL (160-400); Red Cell Distribution Width 18.5 % (11.0-16.0); White Blood Count 6.2 X10*3/uL (4.8-10.8)
[2023-08-05 17:38] LABS: Mean Corpuscular Volume 64.9 fL (80.0-98.0)
[2023-08-05 18:09] LABS: Thyroid Stimulating Hormone 1.27 uIU/mL (0.32-4.0)
[2023-08-06 11:38] LABS: CT PCR NOT DETECTED (Not Detect.); NG PCR NOT DETECTED (Not Detect.)
[2023-08-06 13:52] LABS: BV Int Neg Control Negative (Negative); BV Int Pos Control Positive (Positive)
== END 2023-08-05 15:55 | disposition home or self-care (01) ==
LOC: HO.HHCL 15:54
PROVIDERS: Visit Provider Advanced Practice Midwife
DX: Z01.419 Encounter for gynecological examination (general) (routine) without abnormal findings (principal); Z12.4 Encounter for screening for malignant neoplasm of cervix; D64.9 Anemia, unspecified; N85.2 Hypertrophy of uterus; N92.5 Other specified irregular menstruation
CPT/HCPCS: 0353U; 36415; 84443; 85027; 87480; 87510; 87660

== ENCOUNTER 2023-08-26 10:39 | Outpatient (REF) | payer MEDICAID, SELFPAY ==
--- NOTE | ~2023-08-26 | US_ITS ---
EXAMINATION: US PELVIS COMPLETE CLINICAL INFORMATION: Hypertrophy of uterus COMPARISON: CT abdomen pelvis 12/06/2016 TECHNIQUE: Transabdominal imaging was performed. FINDINGS: The uterus is of normal size and echogenicity measuring 8.6 x 4.6 x 6.6 cm. A regular homogeneous endometrium is identified measuring 0.7 cm. Small volume of fluid within the endometrial canal. Both ovaries are of normal size and echogenicity. The right measures 2.7 x 2.1 x 1.7 cm for a volume of 5.1 mL. The left measures 5.6 x 1.5 x 2.6 cm for a volume of 11.4 mL. There is no pelvic free fluid. US/US pelvic and transvaginal IMPRESSION: Small volume of fluid within the endometrial canal. Otherwise unremarkable pelvic ultrasound.
== END 2023-08-26 10:40 | disposition home or self-care (01) ==
LOC: HO.US 10:39
PROVIDERS: PCP Internal Medicine; Visit Provider Advanced Practice Midwife
DX: N85.2 Hypertrophy of uterus (principal); D64.9 Anemia, unspecified; N92.5 Other specified irregular menstruation; Z12.4 Encounter for screening for malignant neoplasm of cervix
CPT/HCPCS: 76830; 76856

== ENCOUNTER 2023-09-09 10:57 | Outpatient (AMB) | payer MEDICAID, SELFPAY ==
[2023-09-09 11:18] VITALS: BP 118/70; BMI 31.6
--- NOTE | 2023-09-09 11:18 | MHC.OFFVIS ---
Vital Signs 09/09/23 11:18 Height 5 ft 4 in Weight 184 lb BMI 31.6 BP 118/70 Intake Visit Reasons: Ultrasound follow up Information Interpreted: clinical only Crime Analyst: Crime Analyst Present Allergies latex Allergy (Verified 09/09/23 11:23) Rash Is last menstrual period known: Yes Last menstrual period: 08/22/23 Do you need a note to return to daycare/school/sports/work: No HPI HPI Ultrasound follow up: Details: Patient is here for ultrasound follow-up she continues to do well and is working hard on weight loss and has lost from 245 lb to currently 184 today. She is watching her portion sizes and making sure she gets protein and vegetables and cooks all of her room food.. She has not interested in control method at this time she is being careful the ultrasound was done to see if there could be a reason for her heavy periods. Additionally her uterus felt will be on exam. [facility] Medical History Asthma Social History (Updated 08/05/23 @ 14:20 by Karen Tim CMA) Household Members: Children Housing: House Alcohol intake: never Patient Tobacco Use Status: Former Tobacco user Female Reproductive History Menstrual Age of Menarche: 5 Date of last menstrual period: 08/22/23 control method: none Total pregnancies: 6 Full term: 5 Date of last pap smear: 08/07/23 (negative) History of abnormal pap smear: No Physical Exam Vital Signs: Last Vital Signs BP 118/70 09/09/23 11:18 BMI result Body Mass Index 31.6 Results Reviewed Results Reviewed: Patient: Cleo Rock MR#: [id number] : 1990 Acct:[id number] Age/Sex: 32 / F ADM Date: 08/26/23 Loc: HO.US Attending Dr: Amaris Salgado CNM Ordering Physician: Amaris Salgado CNM Date of Service: 08/26/23 Procedure(s): US pelvic and transvaginal Accession Number(s): [id number] cc: Marisa Livingston MD; Amaris Salgado CNM~ EXAMINATION: US PELVIS COMPLETE CLINICAL INFORMATION: Hypertrophy of uterus COMPARISON: CT abdomen pelvis 12/06/2016 TECHNIQUE: Transabdominal imaging was performed. FINDINGS: The uterus is of normal size and echogenicity measuring 8.6 x 4.6 x 6.6 cm. A regular homogeneous endometrium is identified measuring 0.7 cm. Small volume of fluid within the endometrial canal. Both ovaries are of normal size and echogenicity. The right measures 2.7 x 2.1 x 1.7 cm for a volume of 5.1 mL. The left measures 5.6 x 1.5 x 2.6 cm for a volume of 11.4 mL. There is no pelvic free fluid. US/US pelvic and transvaginal IMPRESSION: Small volume of fluid within the endometrial canal. Otherwise unremarkable pelvic ultrasound. Dictated By: Jaqui Gallo MD Signed By: <Electronically signed by Jaqui Gallo MD in OV> 08/29/23 1816 DD/ 1126 TD/TT: Firestop/Containment Worker: Assessment & Plan Assessment & Plan (1) Dysmenorrhea, unspecified: Code(s): N94.6 - Dysmenorrhea, unspecified Category: Medical (2) Family planning education, guidance, and counseling: Code(s): Z30.09 - Encounter for other general counseling and advice on contraception Category: Medical (3) Cervical cancer screening: Comment: 08/05/2023 Pap is negative with negative HPV. Code(s): Z12.4 - Encounter for screening for malignant neoplasm of cervix Category: Medical (4) Anemia: Comment: H&H is still quite low she is on iron twice a day but her provider we are awaiting the pelvic ultrasound. Code(s): D64.9 - Anemia, unspecified Category: Medical (5) Bulky or enlarged uterus: Code(s): N85.2 - Hypertrophy of uterus Category: Medical Plan Patient is here for ultrasound follow-up she continues to do well and is working hard on weight loss and has lost from 245 lb to currently 184 today. She is watching her portion sizes and making sure she gets protein and vegetables and cooks all of her room food.. She has not interested in control method at this time she is being careful the ultrasound was done to see if there could be a reason for her heavy periods. Additionally her uterus felt will be on exam. I reviewed her very normal ultrasound with her she does not need any follow-up in regards of that. She did not want any method of control and we did discuss the different methods and their side effects. She is doing super well with her healthy eating and weight loss and is feeling very very good and is wanting to continue and has goals of losing at least another 20 lb. We will see her whenever we need to see her and for annuals. Coding Level of Care Code Est Pt Level 3 (26002) Diagnoses Dysmenorrhea, unspecified N94.6 Family planning education, guidance, and counseling Z30.09 Cervical cancer screening Z12.4 Anemia D64.9 Bulky or enlarged uterus N85.2 Time Spent (min) 25 Comment 100% spent reviewing health practices/ results
== END 2023-09-09 12:05 | disposition home or self-care (01) ==
PROVIDERS: PCP Internal Medicine; Visit Provider Advanced Practice Midwife
DX: N94.6 Dysmenorrhea, unspecified (principal); D64.9 Anemia, unspecified; N85.2 Hypertrophy of uterus; Z30.09 Encounter for other general counseling and advice on contraception
CPT/HCPCS: 99213

== ENCOUNTER → 2023-09-09 10:57 | Outpatient (BNVA) | payer MEDICAID, SELFPAY | PROVIDERS: PCP Internal Medicine; Visit Provider Advanced Practice Midwife | DX: Z30.09 Encounter for other general counseling and advice on contraception (principal); Z12.4 Encounter for screening for malignant neoplasm of cervix; N94.6 Dysmenorrhea, unspecified; D64.9 Anemia, unspecified; N85.2 Hypertrophy of uterus | CPT/HCPCS: 99212 ==

== ENCOUNTER → 2024-05-26 15:15 | Outpatient (BNV) | payer MEDICAID, SELFPAY | PROVIDERS: Visit Provider Radiology Diagnostic Radiology | DX: R06.02 Shortness of breath (principal) | CPT/HCPCS: 71046 ==

== ENCOUNTER 2024-06-17 14:59 | Outpatient (REF) | payer MEDICAID, SELFPAY ==
--- NOTE | ~2024-06-17 | XR_ITS ---
EXAMINATION: XR CHEST 2 VIEWS HISTORY: sob and cough since 05/25/24 COMPARISON: Comparison is made with the prior examination dated 05/26/2024. FINDINGS: PA and lateral views of the chest are submitted. The lungs are expanded and clear. There is no pleural effusion, pneumothorax, or pulmonary vascular congestion. The heart is normal in size. The bones are intact. XR/XR chest 2V IMPRESSION: No acute cardiopulmonary abnormality. Electronically signed by: Melchor Faria MD 06/17/2024 03:52 PM IMANI
--- OUTSIDE RECORDS SUMMARY | 2024-06-17 18:53 | XMS_ITS | Encounter Summary ---
Author Organization [employer] [facility] Address [address] [place] [address] [address] [place] [address] Care Team Providers Care Side Stitcher Name Role Phone Marisa Livingston MD Primary Care Provider + Encounter Details Date Type Department Care Team (Latest Contact Info) Description 02/27/2022 Abstract [facility] CONVERSIONS Dental, Provider, DDS Social History Tobacco Use Types Packs/Day Years Used Date Smoking Tobacco: Never Assessed Comments Unknown Sex and Gender Information Value Date Recorded Sex Assigned at Female 03/18/2022 10:36 AM EDT Legal Sex Female 10:36 AM EDT Gender Identity Female 03/18/2022 10:36 AM EDT Sexual Orientation Straight 03/18/2022 10 :36 AM EDT documented as of this encounter Plan of Treatment Upcoming Encounters Date Type Department Care Team (Late st Contact Info) Description 07/13/2024 3:30 PM EST Office Visit [facility] MEDICINE [address] [place] [address] Marisa Livingston MD [address] [place] [address] documented as of this encounter Visit Diagnoses Not on filedocumented in this encounter Care Teams Side Stitcher Relationship Specialty Start Date End Date Marisa Livingston MD [address] [place] [address] PCP - General Family Medicine 03/12/19 documented as of this encounter
--- OUTSIDE RECORDS SUMMARY | 2024-06-17 18:53 | XMS_ITS | Encounter Summary ---
Author Organization [employer] Address [address] [place] [address] Care Team Providers Care Librarian Special Library Name Role Phone Marisa Livingston MD Primary Care Provider + Encounter Details Date Type Department Care Team (Late st Contact Info) Description 05/26/2024 Orders Only [facility] External Provider, [facility] Social History Tobacco Use Types Packs/Day Years Used Date Smoking Tobacco: Former Cigarettes Passive Smoke Exposure: Never Smokeless Tobacco: Never Alcohol Use Standard Drinks/Week Comments Never 0 (1 standard drink = 0.6 oz pur e alcohol) Depression Answer Date Recorded Patient Health Questionnaire-9 Score 17 07/08/2023 Patient Health Questionnaire-9 Score 17 07/08/2023 Last PHQ-9: Questionnaire Data Not on file 0 07/08/2023 Housing Stability Answer Date Recorded What is your housing situation today? I have yenny frost 03/03/[address] you li ve. Do you have problems with any of the following? None of the above 03/03/2023 Food Insecurity Answer Date Recorded Within the past 12 months, y ou worried that your food would run out before you got money to buy more: Often true 06/27/2023 Within the past 12 months,th e food you bought just didn't last and you didn't have enough money to get more: Often true 01/2024 Transportation Answer Date Recorded In the past 12 months, has l ack of transportation kept you from medical appts, meetings, work or from getting things needed for daily living? No 03/03/2023 Utilities Answer Date Recorded In the past 12 months, has t he electric, gas, oil or water company threatened to shut off services in your home? Yes 06/27/2023 Depression Answer Date Recorded Patient Health Questionnaire-2 Score 6 07/08/2023 Comments Unknown Sex and Gender Information Value [...] Description 07/13/2024 3:30 PM EST Office Visit [facility] MEDICINE [address] [place], [place] [phone] Marisa Livingston MD [address] [place] [address] documented as of this encounter Procedures Procedure Name Priority Date/Time Associated Diagnosis Comments STREP A NUCLEIC ACID Routine 05/26/2024 5:39 PM EST SARS COV2/INFLUENZA A/B AND RSV RNA QL NAAT Routine 05/26/2024 5:39 PM EST XR CHEST 2 VIEWS Routine 05/26/2024 4:25 PM EST documented in this encounter Results * (ABNORMAL) SARS-CoV-2 RNA, Influenza A/B, and RSV RNA, Ql NAAT (05/26/2024 5:39 PM EST) Influenza A PCR POSITIVE(A) Negative [facility] Influenza B PCR NEGATIVE Negative [facility] Resp Syncy Virus RNA Qual PCR NEGATIVE Negative [facility] SARS COV2 PCR NEGATIVE Negative [facility] Comment:All test results mus t be correlated with clinical findings.Negative results do not preclude SARS-CoV2, influenza Avirus, influenza B virus and/or RSV infectionand should not be used as the sole basis for treatment orother patient management decisions. Negative results must becombined with clinical observations, patient history, andepidemiological information.This test has not been evaluated for monitoring treatment ofinfection.This test has been authorized by the FDA under an EmergencyUse Authorization (EUA) for use by authorized laboratories.Testing performed on the [employer] GeneXpert utilizingreal-time RT-PCR.All SARS CoV2 and positive influenza A/B results arereported to [facility]. 05/26/2024 5:39 PM EST 05/26/2024 5:46 PM EST Generic External Data Provider LAB MICROBIOLOGY - GENERAL ORDERABLES Final Result Performing Organization Address [facility] de Phone Number [facility] [address] [place] [phone] * Strep A Nucleic Acid (05/26/2024 5:39 PM EST) IDNOW SERIAL# [id number] [facility] Strep A Nucleic Acid Negative Negative [facility] Comment:All test results mus t be correlated with clinical findings.This test has not been evaluated for monitoring treatment ofinfection.Additional follow-up testing using the culture method isrequired if the result is negative and clinical symptomspersist, or in the event of an acute rheumatic feveroutbreak. 05/26/2024 5:39 PM EST 05/26/2024 5:46 PM EST Generic External Data Provider LAB MICROBIOLOGY - GENERAL ORDERABLES Final Result Performing Organization Address [facility] de Phone Number [facility] [address] [place] [phone] * XR Chest 2 Views (05/26/2024 4:25 PM EST) Anatomical Region Laterality Modality Chest Radiographic Angelita ging 05/26/2024 4:25 PM EST Narrative 05/26/2024 4:26 PM EST ? [place] [facility] ?[address] ?[place] [address] ?XRay Report ? Signed ? Patient: Smith Dino,Cleo J ?MR#: ?? [id number] ? : 1990 ?Acct:[id number] ? Age/Sex: 33 / F ?ADM Date: 05/26/24 ? Loc: HO.ED ? Attending Dr: ? Ordering Physician: Ilene Sethi ?? Date of Service: 05/26/24 ?? Procedure(s): XR chest 2V ?? Accession Number(s): [id number] ? cc: [facility]; Ilene Sethi ? CLINICAL HISTORY: sob ? Chest Radiographs, 2 views ? Comparison: None ? Findings: ?? No cardiomegaly. ?? Normal mediastinal contours. ?? No pneumothorax. No opacity. No pleural effusion. ?? Normal upper abdomen. ?? No acute fracture. ? Impression: ?? No acute findings. ? This document has been electronically signed by: Viviana Reyes MD ?? on 05/26/2024 16:25:13 ? Dictated By: ?Viviana Ledesma MD ? Signed By: ?<Electronically signed by Viviana Ledesma MD in OV> ? 05/26/24 1626 ? DD/ 1625 ? TD/TT: 05/26/24 1625 ? Propeller Driven Airplane Mechanic: ? 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 Donjackie, Image - 05/26/[address] [address] XRay Report Signed Patient: Cleo Rock JMR#: [id number] : 1990Acct:[id number] Age/Sex: 33 / FADM Date: 05/26/24 Loc: HO.ED Attending Dr: Ordering Physician: Ilene Sethi Date of Service: 05/26/24 Procedure(s): XR chest 2V Accession Number(s): [id number] cc: [facility]; Ilene Sethi CLINICAL HISTORY: sob Chest Radiographs, 2 views Comparison: None Findings: No cardiomegaly. Normal mediastinal contours. No pneumothorax. No opacity. No pleural effusion. Normal upper abdomen. No acute fracture. Impression: No acute findings. This document has been electronically signed by: Viviana Reyes MD on 05/26/2024 16:25:13 Dictated By: Viviana Ledesma MD Signed By: <Electronically signed by Viviana Ledesma MD in OV> 05/26/24 1626 DD/ 1625 TD/TT: 05/26/24 1625 Propeller Driven Airplane Mechanic: [facility] External Provider IMG XR PROCEDURES Edited Result - Final documented in this encounter Visit Diagnoses Not on filedocumented in this encounter Additional Health Concerns Assessment Noted Time PHQ-9 Depression Total Score: 17 024 9:31 AM EST documented as of this encounter Care Teams Librarian Special Library Relationship Specialty Start Date End Date Marisa Livingston MD [address] [place] [address] PCP - General Family Medicine 03/12/19 documented as of this encounter
--- OUTSIDE RECORDS SUMMARY | 2024-06-17 18:53 | XMS_ITS | Clinical Summary ---
Author Organization [employer] Address [address] [facility] [address] [place] [address] Care Team Providers Care Booking Police Officer Name Role Phone Marisa Livingston MD Primary Care Provider + Allergies Active Allergy Reactions Criticality Noted Date Comments Latex Itching,Rash Low 02/18/2019 Medications acetaminophen (Tylenol) 500 MG tablet take 1 tablet by oral route every6 -8 hours as needed not to exceed 4 tablets per 24hrs 05/11/20 20 Active traZODone (Desyrel) 50 MG tablet TAKE 1 TABLET BY MOUTH EVERY DAY NEEDED FOR SLEEP 10/24/19 23 Active albuterol 108 (90 Base) MCG/ACT inhalerIndicatio ns:Moderate persistent asthma without complication Inhale 2 puffs every 4 (four) hours. 18 g 2 11/09/19 23 Active risperiDONE (RisperDAL) 2 MG tablet Take 1 tablet by mouth. Active OXcarbazepine (Trileptal) 300 MG tablet Take 1 tablet by mouth every 12 (twelve) hours. Active Nebulizers (Vios Aerosol Delivery System) [facility] USE DIRECTED. 11/09/19 23 Active Fasenra Pen 30 MG/ML injection 02/20/20 23 Active SUMAtriptan (Imitrex) 100 MG tabletIndication s:Migraine without aura, not refractory take 1/2-1 tablet by oral route once after the onset of a migraine attack;may repeat after 2 hours if headache returns, MDD = 4 tabs 30 tablet 3 07/08/19 24 Active fluticasone-salm eterol (Advair) 230-21 MCG/ACT inhalerIndicatio ns:Moderate persistent asthma without complication Inhale 2 puffs in the morning and at bedtime. Rinse mouth with water after use to reduce aftertaste and incidence of candidiasis. Do not swallow. 12 g 11 07/08/19 24 025 Active ferrous sulfate (Fe Tabs) 325 (65 Fe) MG EC tabletIndication s:Menorrhagia with regular cycle Take 1 tablet (325 mg) by mouth with breakfast. Do not crush, chew, or split. 90 tablet 07/08/19 24 025 Active ipratropium-albu terol (Duo-Neb) 0.5-2.5 mg/3 mL nebulizer solutionIndicati ons:Moderate persistent asthma without complication USE 3 ML VIA NEBULIZER EVERY 6 HOURS NEEDED FOR WHEEZING 180 mL 2 10/08/19 24 Active ergocalciferol (Vitamin D2) 1.25 MG (79162 UT) capsule TAKE 1 CAPSULE(1.25 MG) BY MOUTH 1 TIME EVERY WEEK 12 capsule 1 06/08/19 25 Active ergocalciferol (Vitamin D2) 1.25 MG (05750 UT) capsule TAKE 1 CAPSULE(1.25 MG) BY MOUTH 1 TIME EVERY WEEK 12 capsule 1 06/04/19 24 025 Discontinued Hospital, Clinic, or Other Facility Administered Medication Ordered Dose Route Frequency Start Date End Date Status predniSONE (Deltasone) tablet 40 mgIndications:Acute severe exacerbation of asthma 40 mg PO Once 05/26/2024 05/26/2024 Ended ipratropium-albutero l (Duo-Neb) 0.5-2.5 mg/3 mL nebulizer solution 3 mLIndications:Acute severe exacerbation of asthma 3 mL NEBULIZATION Once 05/26/2024 05/26/2024 Ended Active Problems Problem Noted Date Diagnosed Date Moderate persistent asthma without complication 06/17/2024 Menorrhagia with regular cycle 04/16/2023 Assessment & Plan (07/09/2023 7:17 PM EST): -For More than 2 years -Slight increase in hemoglobin. -Refer to gynecology for further evaluation. -May consider progesterone only contraception. -Discussed possible options. -Counseled on intake of iron and vitamin c to aid in absorption. Assessment & Plan (04/16/2023 11:21 AM EST): Use Ibuprofen Schedule appt for pap smear with me Decreased vision in both eyes 01/06/2023 Assessment & Plan (05/05/2023 11:20 AM EST): Refer to ophtalmology Periodontal disease 12/18/2022 Dental calculus 12/18/2022 Left shoulder pain 11/22/2022 Assessment & Plan (05/05/2023 11:19 AM EST): Continues with recurrent pain, didn't have Xray I gave her info re stretching exercises for shoulder FU in 6w, call back prn to refer to PT, declines at this time Assessment & Plan (04/16/2023 11:21 AM EST): Refer to PT Partially improved Assessment & Plan (11/22/2022 1:34 PM EDT): seems to have residual tendonosis on the left shoulder use meolxicam x 1 month + tylenol PRN + heat to affected area I gave her information on stretching exercises FU with me in 3-4 weeks Exercise counseling 11/22/2022 Dietary counseling 11/22/2022 Bipolar depression 11/08/2022 Assessment & Plan (11/22/2022 1:35 PM EDT): doing well with current prescriber. Continue trileptal 300mg BID + trazidone and risperdal. She will address with her prescriber potential change on neuroleptic with less metabolic side effects pt feels safe at home and is able to contract for safety Accidental fall 07/03/2022 Acute frontal sinusitis 07/03/2022 Blurring of visual image 07/03/2022 Chronic low back pain 07/03/2022 Grief 07/03/2022 Knee pain 07/03/2022 Migraine without aura, not refractory 07/03/2022 Assessment & Plan (07/09/2023 7:18 PM EST): -Doing well. -Use Excedrin migraine TERESA migraine and Imatrex if not improved after 4h, can take up to 200mg daily PRN. Assessment & Plan (07/03/2022 12:50 PM EST): Order labs. Use excedrin migraine PRN and Imitrex 50-100mg for more severe migraine. FU with me next month. Morbid obesity 07/03/2022 Assessment & Plan (05/05/2023 11:20 AM EST): Discussed re weight reduction options including exercise, life style modifications, diet, referral to docket specialist. Discussed re lower calorie intake, increase dietary fiber Assessment & Plan (11/22/2022 1:34 PM EDT): Discussed re weight reduction options including exercise, life style modifications, diet, referral to docket specialist. Discussed re lower calorie intake, increase dietary fiber Refer to dietitian Numbness of hand 07/03/2022 Pain in wrist 07/03/2022 Recurrent urinary tract infection 07/03/2022 Dyspnea on exertion 07/03/2022 Assessment & Plan (06/17/2024 2:57 PM EST): Reports dyspnea on exertion, denies SOB at rest. Respiratory exam reassuring. No wheezing, rales or ronchi. Dx with Influenza A on 05/26/24. Still having persistent SOB and coughing after completing prednisone course of 10 days and taking Benzonatate. -ordered D-dimer, CBC, CRP and Pertussis Bordetella toxin Antibody 06/17/24 -ordered repeat CXR 06/17/24 -Discussed will call pt with results and if D-dimer is elevated she needs to go to the ER to get CTA. Assessment & Plan (07/09/2023 8:54 AM EST): -Uncontrolled. -Restart Advair Diskus -Follow up with plaster model and mold maker for immunotherapy. -Counseled on protocol for FMLA paperwork she brought with her today. Assessment & Plan (04/16/2023 11:37 AM EST): Seems to be improving on Fasenra Counseled patient to have COVID iz today and our walk-in clinic. Continue Duo-Neb PRN Assessment & Plan (11/22/2022 1:36 PM EDT): somewhat improving, continue advair 230+ albuerol PRN FU with pulmonlogy next month counseled regarding weight reduction avoid exposure to extreme temperatures, write a letter or work Assessment & Plan (11/09/2022 9:42 PM EDT): Pt w uncontrolled asthma chronically but w recent exacerbation in the past 3 d and multiple previous exacerbations in the past mos. Using Albuterol multiple times a day. Here today neg rapid COVID-19 and flu tests -Albuterol nebulizer here in clinic today (no duo neb nor Iprathropium available in clinic)--->some improvement after nebulization. -Start Prednisone 40 mg every day for 5 d. -Stop Flovent and start Advair BID -Start nebulizations at home w duo neb PRN - gave today NBZ machine written prescription to [facility] nurse staff -Alarm signs and sx in case needs to go to ED if no improvement -Schedule appt w PCP in 2 wks to monitor asthma and advise pt to have blood workup requested by her PCP at previous visit -Noted mild elevated diastolic BP and HR, likely in the setting of asthma exacerbation and Albuterol use, to f BP at next visit w PCP -If no improvement at next visit may need to be considered for Montelukast and to add anti-muscarinic inhaler as Trelegy -Referred today to power plant operator for uncontrolled asthma Assessment & Plan (07/03/2022 12:50 PM EST): Uncontrolled. Start Flovent BID. She agreed to influenza and PCV 20 today, declined Covid IZ. DUB (dysfunctional uterine bleeding) 07/03/2022 Assessment & Plan (07/03/2022 12:51 PM EST): Counseled to keep menstrual diary. Order CBC and iron studies. Obesity due to excess calories without serious c omorbidity 07/03/2022 Assessment & Plan (07/03/2022 12:51 PM EST): Discussed re weight reduction options including exercise, life style modifications, diet, referral to docket specialist. Discussed re lower calorie intake, increase dietary fiber. Encounter for preventive health examination 06/19 Assessment & Plan (07/08/2023 10:15 AM EST): Patient is encouraged to exercise moderately 4-5x/week. Counseled to increase consumption of fresh fruit, veggies and water. To have frequent and small meals. I have discussed re having protected sex at all times for STI purposes. Pat does not smoke, uses alcohol or any illicit drugs, seems to feel safe at home PAP smear: Overdue, refer to medical assistant ob gyn will need further eval for DUB Adult Izs: COVID overdue counseld to have covid vaccine teresa Colonoscopy: N/a will start at age 44 Mammogram: N/a will start at age 38 Ophthalmology: Up to date next due 01/2025 Labs: up to date next one due 11/2023 Dental visit: up to date Assessment & Plan (07/03/2022 12:34 PM EST): Discussed with patient re increase fresh fruit and vegetable intake. Counseled re moderate exercise as tolerated, up to 20min/d Patient feels safe at home. PAP smear overdue, will schedule PAP smear after the next visit with me. Eye exam referred to Eye clinic. Lipids/FBS order labs Vaccinations agreed to influenza and PCV today. She will obtain record of other vaccinations at previous PCP or Human Resources. Dental visit up to date, next one due on October 2022. Encounters Date Type Department Care Team Description 06/17/2024 3:20 PM EST Office Visit [facility] [address] [place] [phone] Jaki Cruz MD Dyspnea on exertion (Primary Dx); Moderate persistent asthma without complication 06/17/2024 Telephone [facility] [address] [place] [phone] Jaki Cruz MD 06/17/2024 Telephone [facility] [address] [place] [phone] Bettie Garay RN ED EXPECT 06/17/2024 Orders Only [facility] [address] [place] [phone] Jaki Cruz MD Chronic anemia (Primary Dx) 06/17/2024 Telephone [facility] [address] [address] Amirah Pugh, [place] Nurse Triage (SOB) 06/10/[address] [address] Marisa Livingston MD Nurse Triage 06/07/[address] [address] Marisa Livingston MD 06/04/[address] [phone] Marisa Livingston MD Nurse Triage 06/03/2024 Orders Only [facility] [address] [place], [place] [phone] [place] Hagen, BERNIE 05/27/[address] [phone] Marisa Livingston MD 05/26/2024 4:00 PM EST Office Visit [facility] [address] [address] Joann Sandoval MD Acute severe exacerbation of asthma (Primary Dx) 05/26/2024 Orders Only [facility] External Provider, [facility] 05/26/[address] [address] Marisa Livingston MD Nurse Triage 05/20/[address] [phone] Marisa Livingston MD July recall 03/26/2024 3:00 PM EST Office Visit [facility] [address] [place] [address] Julian Quevedo Dental calculus (Primary Dx) from Last 3 Months Immunizations Name Administration Dates Next Due Influenza injectable quadriv alent IIV4 with preservative 07/03/2022 Influenza injectable quadriv alent preservative free 04/16/2023,02/18/2019,01/27/2018 Pneumococcal Conjugate PCV 20 07/03/2022 Tdap 01/27/2018 Family History Medical History Relation Name Comments legal blindness Brother No Known Problems Father Unknown Colon cancer Maternal Grandfather Malig Hypertension Mother Blindness Sister Relation Name Status Comments Brother Father Unknown Other Maternal Grandfather Alive Mother (Age 22) Sister Social History Tobacco Use Types Packs/Day Years [...] Orientation Straight 03/18/2022 10 :36 AM EDT Last Filed Vital Signs Vital Sign Reading Time Taken Comments Blood Pressure 124/84 06/17/2024 2:18 PM EST Pulse 98 06/17/2024 2:18 PM EST Temperature 37 ??C (98.6 ??F) 06/17/2024 2:18 PM EST Respiratory Rate 22 06/17/2024 2:18 PM EST Oxygen Saturation 100% 06/17/2024 2:18 PM EST Inhaled Oxygen Concentration - - Weight 81.6 kg (180 lb) 06/17/2024 2:18 PM EST Height 162.6 cm (5' 4 ) 06/17/2024 2:18 PM EST Body Mass Index 30.9 06/17/2024 2:18 PM EST Plan of Treatment Upcoming Encounters Date Type Department Care Team (Late st Contact Info) Description 07/13/2024 3:30 PM EST Office Visit [facility] [address] [place], [place] [phone] Marisa Livingston MD [address] [place], [place] [phone] Health Maintenance Due Date Last Done Comments Alcohol/Substance Use Screening 2000 Family Planning (PISQ) 12/06/2003 Hepatitis C Screening 2006 Hepatitis B Vaccines (1 of 3 - 19+ 3-dose series) 12/06/2007 Dental Oral Exam 08/29/2022 02/27/2022 Depression Monitoring (PHQ-9) 01/06/2024 07/08/2023, 07/08/2023 COVID-19 Vaccine ( season) 2024 Influenza Vaccine (#1) 2024 , 07/03/2022, 02/18/2019, Additional history exists SDOH Screening 06/27/2024 06/27/2023 Depression Screening 07/08/2024 07/08/2023, 07/08/19 Dental Prophylaxis 09/24/2024 03/26/2024 Dental X-Ray: Full Mouth 02/28/2025 02/27/2022 Tobacco Screening 03/26/2025 03/26/2024 Dental X-Ray: Bitewings 03/27/2025 03/26/2024, 02/27 Lipid Panel 12/10/2027 12/09/2022 DTaP/Tdap/Td Vaccines (2 - Td or Tdap) 01/28/2028 01/27/2018 Cervical Cancer Screening 08/04/2028 HPV/Cotest 08/04/2028 Pap Smear 08/04/2028 08/05/2023 Zoster Vaccines (1 of 2) 2038 RSV Patients and Patients Aged 60 years or older (1 - 1-dose 75+ series) 12/06/2063 Pneumococcal Vaccine: Pediatrics (0 to 5 Years) and At-Risk Patients (6 to 49) Years) Completed 07/03/2022 HIV Screening Completed 12/09/2022 HIB Vaccines Aged Out No longer eligi ble based on patient's age to complete this topic HPV Vaccines Aged Out No longer eligi ble based on patient's age to complete this topic Hepatitis A Vaccines Aged Out No long er eligible based on patient's age to complete this topic IPV Vaccines Aged Out No longer eligi ble based on patient's age to complete this topic Meningococcal Vaccine Aged Out No candi page eligible based on patient's age to complete this topic RSV under 20 months Aged Out No longe r eligible based on patient's age to complete this topic Rotavirus Vaccines Aged Out No longer eligible based on patient's age to complete this topic Procedures Procedure Name Priority Date/Time Associated Diagnosis Comments C-REACTIVE PROTEIN Routine 06/17/2024 3: 32 PM EST Dyspnea on exertion CBC WITH AUTO DIFFERENTIAL Routine 06/17/2024 3:32 PM EST Dyspnea on exertion D DIMER HIGH SENSITIVITY STAT 06/17/2024 3:32 PM EST Dyspnea on exertion XR CHEST 2 VIEWS Routine 06/17/2024 3:00 PM EST Dyspnea on exertion POCT RAPID STREP A Routine 06/17/2024 2: 36 PM EST Dyspnea on exertion POCT INFLUENZA B (ID NOW RAPID MOLECULAR) Routine 06/17/2024 2:36 PM EST Dyspnea on exertion POCT INFLUENZA A (ID NOW RAPID MOLECULAR) Routine 06/17/2024 2:36 PM EST Dyspnea on exertion POCT RAPID COVID ANTIGEN Routine 06/17/2024 2:09 PM EST Dyspnea on exertion SARS COV2/INFLUENZA A/B AND RSV RNA QL NAAT Routine 05/26/2024 5:39 PM EST STREP A NUCLEIC ACID Routine 05/26/2024 5:39 PM EST XR CHEST 2 VIEWS Routine 05/26/2024 4:25 PM EST INTRAORAL - PERIAPICAL EACH ADDITIONAL RADIOGRAPHIC IMAGE Routine 03/26/2024 3:00 PM EST INTRAORAL - PERIAPICAL FIRST RADIOGRAPHIC IMAGE Routine 03/26/2024 3:00 PM EST ORAL HYGIENE INSTRUCTIONS Routine 03/26/2024 3:00 PM EST BITEWINGS - 4 RADIOGRAPHIC IMAGES Routine 03/26/2024 3:00 PM EST Full PROPHYLAXIS - ADULT Routine 03/26/2024 3:00 PM EST ADJUNCTIVE GENERAL SERVICES - PROFESSIONAL VISITS - CASE PRESENTATION, SUBSEQUENT TO DETAILED AND EXTENSIVE TREATMENT PLANNING Routine 03/26/2024 3:00 PM EST PAP SMEAR Routine 08/05/2023 3:15 PM EDT HIV ANTIBODY/ANTIGEN ([place] DPH) Routine 12/09/2022 1:30 PM EDT LIPID PANEL, STANDARD Routine 12/09/2022 1:30 PM EDT from Last 3 Months or Most Recently Relevant to Health Maintenance Results * D Dimer High Sensitivity (06/17/2024 3:32 PM EST) Pathologist [facility] D Dimer High Sensitivity 232 NG/ML [facility] Comment:D-DIMER HS REFERENCE RANGENote: Our assay reports D-Dimer Units (D- DU).The cut-off value for venous thromboembolic (VTE) disease is230 ng/mL. This value has a very high negative predictivevalue when the patient has a low to moderate clinicalprobability of VTE.The upper limit of normal is 243 ng/mL. Blood 06/17/2024 3:32 PM EST 06/17/2024 3:59 PM EST us Jaki Cruz MD LAB BLOOD ORDERABLES Final Result [facility] [address] [place] [phone] * (ABNORMAL) CBC auto differential (06/17/2024 3:32 PM EST) White Blood Count 6.9 4.8 - 10.8 X10*3/uL [facility] Red Blood Count 4.52 4.20 - 5.50 X10*6/uL [facility] Hemoglobin 8.8(L) 12.0 - 16.0 g/dl [facility] Hematocrit 30.7(L) 37.0 - 47.0 % [facility] Mean Corpuscular Volume 67.9(L) 80.0 - 98.0 fL [facility] Mean Corpuscular Hemoglobin 19.5(L) 27.0 - 33.0 pg [facility] Mean Corpuscular HGB Conc 28.7(L) 31.0 - 35.0 g/dl [facility] Red Cell Distribution Width 19.4(H) 11.0 - 16.0 % [facility] Platelet Count 346 160 - 400 X10*3/uL [facility] Mean Platelet Volume 9.4 9.4 - 12.3 fL [facility] Neutrophils Percent Auto 60.7 45 - 73 % [facility] Imm Gran Pct Auto 0.3 0.0 - 0.4 % [facility] Lymphocytes Percent Auto 27.4 20 - 40 % [facility] Monocytes Percent Auto 6.4 2 - 11 % [facility] Eosinophils Percent Auto 4.8(H) 0 - 4 % [facility] Basophils Percent Auto 0.4 0 - 2 % [facility] NRBC Pct Auto 0.0 0.0 - 0.2 /100WBC [facility] Neutrophils Absolute Auto 4.2 2.0 - 8.3 x10*3/uL [facility] Imm Gran Abs Auto 0.02 0.00 - 0.03 X10*3/uL [facility] Lymphocytes Absolute Auto 1.9 1.2 - 4.9 X10*3/uL [facility] Monocytes Absolute Auto 0.4 0.1 - 1.2 X10*3/uL [facility] Eosinophils Absolute Auto 0.3 0.0 - 0.4 X10*3/uL [facility] Basophils Absolute Auto 0.0 0.0 - 0.2 X10*3/uL [facility] NRBC Abs Auto 0.000 0.0 - 0.012 X10*3/uL [facility] Blood Venous blood specimen / Unknown 06/17/2024 3:32 PM EST 06/17/2024 3:59 PM EST Jaki Cruz MD LAB BLOOD ORDERABLES Final Result Performing Organization Address [facility]/ZIP Co de Phone Number [facility] [address] [place] [phone] * C-reactive Protein (06/17/2024 3:32 PM EST) C Reactive Protein <0.10 < or = 0.50 mg/dL [facility] Blood Venous blood specimen / Unknown 06/17/2024 3:32 PM EST 06/17/2024 3:59 PM EST Jaki Cruz MD LAB BLOOD ORDERABLES Final Result Performing Organization Address City/[facility]/ZIP Co de Phone Number [facility] [address] [place] [address] [phone] * XR Chest 2 Views (06/17/2024 3:00 PM EST) Only the most recent of2 resultswithin the time period is included. Anatomical Region Laterality Modality Chest Radiographic Angelita ging 06/17/2024 3:00 PM EST Narrative 06/17/2024 3:55 PM EST ?[facility] ?[address] ?[place] [address] ?XRay Report ? Signed ? Patient: Smith Dino,Cleo J ?MR#: ?? [id number] ? : 1990 ?Acct:[id number] ? Age/Sex: 33 / F ?ADM Date: 06/17/24 ? Loc: HO.HHCX ? Attending Dr: Jaki Cruz MD ? Ordering Physician: Jaki Cruz MD ?? Date of Service: 06/17/24 ?? Procedure(s): XR chest 2V ?? Accession Number(s): [id number] ? cc: Jaki Cruz MD ? EXAMINATION: ??XR CHEST 2 VIEWS ? HISTORY: sob and cough since 05/25/24 ? COMPARISON: Comparison is made with the prior examination dated ?? 05/26/2024. ? FINDINGS: ??PA and lateral views of the chest are submitted. The lungs ?? are expanded and clear. ??There is no pleural effusion, pneumothorax, or ?? pulmonary vascular congestion. ??The heart is normal in size. ??The bones ?? are intact. ? XR/XR chest 2V ?? IMPRESSION: ?? No acute cardiopulmonary abnormality. ? Electronically signed by: ??Melchor Faria MD ??06/17/2024 03:52 PM EST ? Dictated By: ?Melchor Faria MD ? Signed By: ?<Electronically signed by Melchor Faria MD in OV> ?06/17/24 1552 ? DD/ 1500 ? TD/TT: 06/17/24 1520 ? Director Social Service: ? 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 Stephania Roberts - 06/17/[address] [address] XRay Report Signed Patient: Luis DinoCleo R#: [id number] : 1990Acct:[id number] Age/Sex: 33 / FADM Date: 06/17/24 Loc: HO.HHCX Attending Dr: Jaki Cruz MD Ordering Physician: Jaki Cruz MD Date of Service: 06/17/24 Procedure(s): XR chest 2V Accession Number(s): [id number] cc: Jaki Cruz MD EXAMINATION: XR CHEST 2 VIEWS HISTORY: sob and cough since 05/25/24 COMPARISON: Comparison is made with the prior examination dated 05/26/2024. FINDINGS: PA and lateral views of the chest are submitted. The lungs are expanded and clear. There is no pleural effusion, pneumothorax, or pulmonary vascular congestion. The heart is normal in size. The bones are intact. XR/XR chest 2V IMPRESSION: No acute cardiopulmonary abnormality. Electronically signed by: Melchor Faria MD 06/17/2024 03:52 PM EST RP Dictated By: Melchor Faria MD Signed By: <Electronically signed by Melchor Faria MD in OV> 06/17/24 1552 DD/ 1500 TD/TT: 06/17/24 1520 Director Social Service: Jaki Cruz MD IMG XR PROCEDURES Final Re sult * Influenza B (ID NOW Rapid Molecular) (06/17/2024 2:36 PM EST) Influenza B Negative Negative, Indeterminate [facility] Swab 06/17/2024 2:36 PM EST Jaki Cruz MD POINT OF CARE TEST ENTER/E DIT ORDERABLES Final Result Performing Organization Address [facility] Co de Phone Number [facility] [address] [place] [phone] * Influenza A (ID NOW Rapid Molecular) (06/17/2024 2:36 PM EST) Influenza A Negative Negative, Indeterminate [facility] Swab 06/17/2024 2:36 PM EST Jaki Cruz MD POINT OF CARE TEST ENTER/E DIT ORDERABLES Final Result Performing Organization Address [facility] Co de Phone Number [facility] [address] [place] [phone] * POCT rapid strep A manually resulted (06/17/2024 2:36 PM EST) [facility] Rapid Strep A Screen Negative Negative, None Detected Swab 06/17/2024 2:36 PM EST Jaki Cruz MD POINT OF CARE TEST ENTER/E DIT ORDERABLES Final Result * POCT Rapid Covid-19 BinaxNOW (06/17/2024 2:09 PM EST) [facility] Rapid COVID Ag Negative Nares 06/17/2024 2:09 PM EST Jaki Cruz MD POINT OF CARE TEST ENTER/E DIT ORDERABLES Final Result * Strep A Nucleic Acid (05/26/2024 5:39 PM EST) [facility] IDNOW SERIAL# [id number] [facility] Strep A Nucleic Acid Negative Negative [facility] Comment:All test results mus t be correlated with clinical findings.This test has not been evaluated for monitoring treatment ofinfection.Additional follow-up testing using the culture method isrequired if the result is negative and clinical symptomspersist, or in the event of an acute rheumatic feveroutbreak. 05/26/2024 5:39 PM EST 05/26/2024 5:46 PM EST Generic External Data Provider LAB MICROBIOLOGY - GENERAL ORDERABLES Final Result [facility] [address] [place] [phone] * (ABNORMAL) SARS-CoV-2 RNA, Influenza A/B, and RSV RNA, Ql NAAT (05/26/2024 5:39 PM EST) [facility] Influenza A PCR POSITIVE(A) Negative [facility] Influenza B PCR NEGATIVE Negative [facility] Resp Syncy Virus RNA Qual PCR NEGATIVE Negative [facility] SARS COV2 PCR NEGATIVE Negative [facility] Comment:All test results mus t [...] use by authorized laboratories.Testing performed on the [employer] GeneXpert utilizingreal-time RT-PCR.All SARS CoV2 and positive influenza A/B results arereported to [facility]. 05/26/2024 5:39 PM EST 05/26/2024 5:46 PM EST us Generic External Data Provider LAB MICROBIOLOGY - GENERAL ORDERABLES Final Result [facility] [address] [place] [address] [phone] * Pap Smear (08/05/2023 3:15 PM EDT) 08/05/2023 3:15 PM EDT 08/07/2023 1:00 PM EDT Narrative [facility] - 08/18/2023 1:17 PM EDT ----- ------- Name: Cleo Rock ? Age/Sex: 32/F ? : 1990 Unit#: [id number] ?? Attend Dr: NaomiAmaris MARA ?Re08/05/23 ?Status: DEP REF ? Location: HO.LNP ?Disch: ? ----- ------- SPEC : [id number] ? RECD: 08/07/23-1300 ? STATUS: ??SOUT ? REQ NUM: [id number] ? MEAGAN: 08/05/23-1515 ? SUBM DR: NaomiAmaris MARA ? ENTERED: ??08/07/23-9288 ?SP TYPE: Pap Smr ?OTHR DR: Marisa Livingston MD ? ORDERED: ??Pap Smear ? Interpretation ?? Satisfactory for evaluation. ?? Negative for intraepithelial lesion or malignancy. ?HPV mRNA E6/E7: ?NOT DETECTED ? This assay detects E6/E7 viral messenger RNA (mRNA) from 14 high-risk HPV types (16, 18, ?? 31, 33, 35, 39, 45, 51, 52, 56, 58, 59, 66, 68) ?? HPV testing performed by [facility], [place], [place]. ??See reference laboratory ?? portion of the EMR for entire report. ?Clinical Information LMP: 07/17/23 Previous PAP test: 09/17/17, WNL ? Material Received ?? ThinPrep-Cervical Copies To: ?? Marisa Livingston MD ?? [address] [facility] ?? [place] [id number] ? Amaris Salgado CNM ?? [address] [place] [address] [facility] ?? [place] [address] ?? [phone] ----- ------- Signed (signature on file) IDANIA Hutchinson (ASCP) 08/18/23 1317 ? ----- ------- ? END OF REPORT ? us Generic External Data Provider LAB CYTOLOGY GILBERT UGARTE Final Result Performing Organization Address City/State/[facility] Co de Phone Number [facility] [address] [place] [address] [phone] * HIV Ab/Ag (IRAJ MARIA) (12/09/2022 1:30 PM EDT) HIV AB/AG Nonreactive Nonreactive [facility] Comment:HIV-1 p24 Ag and/or HIV-1/HIV-2 Ab not detected.A test result that is nonreactive does not exclude thepossibility of exposure to or infection with HIV-1 and/orHIV-2. Nonreactive results in this assay for individualswith prior exposure to HIV-1 and/or HIV-2 may be due toantigen and antibody levels that are below the limit ofdetection of this assay.The [employer] HIV Ag/Ab Combo assay result andsupplemental assay results should be interpreted inconjunction with the patient's clinical presentation,history and other laboratory results. If the results areinconsistent with clinical evidence, additional testing issuggested to confirm the result. 12/09/2022 1:30 PM EDT 12/09/2022 4:12 PM EDT us Marisa Livingston MD LAB BLOOD ORDERABLES Fin al Result Performing Organization Address [facility] Co de Phone Number [facility] [address] [place] [address] [phone] * Lipid Panel, Standard (12/09/2022 1:30 PM EDT) Triglycerides 56 mg/dL [facility] Comment:Desirable Triglyceri de: less than 150 mg/dLBorderline High Triglyceride 150-199 mg/dLHigh Triglyceride: 200-499 mg/dLVery High Triglyceride: greater than or equal to 5OO mg/dL Cholesterol 114 mg/dL [facility] Comment:Desirable Cholestero l: less than 200 mg/dLBorderline High Cholesterol: 200-239 mg/dLHigh Cholesterol: greater than 239 mg/dL LDL Cholesterol Calculated 65 mg/dl [facility] Comment:Desirable LDL: less than 100 mg/dLNear Optimal/Above Optimal LDL: 110- 129 mg/dLBorderline High LDL: 130-159 mg/dLHigh LDL: 160-189 mg/dLVery High LDL: greater than or equal to 190 mg/dL HDL Cholesterol 38 mg/dL [facility] Comment:Desirable HDL: great er than 40 mg/dL Note: This HDL assay may give artificially low results in patients with liver disease. 12/09/2022 1:30 PM EDT 12/09/2022 4:12 PM EDT Marisa Livingston MD LAB BLOOD ORDERABLES Fin al Result [facility] [address] [place] [phone] from Last 3 Months or Most Recently Relevant to Health Maintenance Insurance [facility] ADULT Care Teams Booking Police Officer Relationship Specialty Start Date End Date Marisa Livingston MD [address] [place] [phone] PCP - General Family Medicine 03/12/19
--- OUTSIDE RECORDS SUMMARY | 2024-06-17 18:53 | XMS_ITS | Encounter Summary ---
Author Organization [employer] Address [address] [facility] 7 [place] [address] Care Team Providers Care Carrier Loader Name Role Phone Marisa Livingston MD Primary Care Provider + Reason for Visit * Reason Comments Med Refill Encounter Details Date Type Department Care Team ([facility] st Contact Info) Description 03/04/[address] [facility] [address] [place] [address] Marisa Livingston MD [address] [place] [address] Social History Tobacco Use Types Packs/Day Years [...] enough money to get more: Often true 02/ 01/2024 Transportation Answer Date Recorded In the [...] Description 07/13/2024 3:30 PM EST Office Visit [facility] [address] [place] [phone] Marisa Livingston MD [address] [place] [address] documented as of this encounter Visit Diagnoses Not on filedocumented in this encounter Additional Health Concerns Assessment Noted Time PHQ-9 Depression Total Score: 17 024 9:31 AM EST documented as of this encounter Care Teams Carrier Loader Relationship Specialty Start Date End Date Marisa Livingston MD [address] [place] [address] PCP - General Family Medicine 03/12/19 documented as of this encounter
--- OUTSIDE RECORDS SUMMARY | 2024-06-17 18:53 | XMS_ITS | Encounter Summary ---
Author Organization [employer] Address [address] [facility] 7 [place] [address] Care Team Providers Care Top Installer Name Role Phone Marisa Livingston MD Primary Care Provider + Reason for Visit * Reason Onset Date Comments Nurse Triage 06/04/2024 Encounter Details Date Type Department Care Team ([facility] st Contact Info) Description 06/04/2024 Telephone [facility] MEDICINE [address] [place] [address] Marisa Livingston MD [address] [place] [address] Nurse Triage Social History Tobacco Use Types Packs/Day Years [...] AM EDT documented as of this encounter Miscellaneous Notes * Telephone Encounter - Gem Aguila RN - 06/08/2024 3:17 PM EST TC placed to patient [phone] however no answer and RN unable to leave VM d/t VM being full. Patient to f/u PRN. * Telephone Encounter - Dominic Shearer - 06/08/2024 11:53 AM EST Tc from pt returning missed call , pt is requesting a callback at [phone] * Telephone Encounter - Gem Aguila RN - 06/08/2024 9:52 AM EST RN reviewed [facility]. Patient did not go to either facility. TC placed to patient [phone] however no answer and VM is full. RN unable to leave VM. TC placed to secondary number [phone] however number is OOS. RN unable to leave VM. TC placed to spouse [phone] however the service you are attempting to use has been restricted or is unavailable . RN unable to leave VM. Patientto f/u PRN. * Telephone Encounter - Dedra Thomas RN - 06/04/2024 10:06 AM EST Sent to team for [facility] ER status check PRN. * Telephone Encounter - Dedra Thomas RN - 06/04/2024 9:58 AM EST Per [facility] notes, pt positive for influenza A. Given Rx for prednisone 20 mg tablet 40 mg PO DAILY Qty: 10 0RF benzonatate 100 mg capsule 100 mg PO TID PRN (Reason: cough) Qty: 20 0RF Advised to take Tyelnol and Ibuprofen PRN for fever or pain. Call returned to Cleo Sun to triage below. Per pt completed prednisone and using benzonatate. Reports continues to have sx of cough and SOB . Pt has been using Advair only, does not have albuterol inhaler only nebulizer to use at night. Pt speaking in phrases, become short of breath even with just speaking. advised of disposition, agrees to return to [facility] ED for evaluation. Rev iewed home care advise, ER precautions and reasons to call back. Protocol Used: Asthma Attack (Adult) Protocol-Based Disposition: Go to ED/[facility] (or to Office with PCP Approval) Positive Triage Question: * Moderate asthma attack (e.g., SOB at rest, speaks in phrases, audible wheezes) and not resolved after 2 or 3 inhaler or nebulizer treatments given 20 minutes apart * All higher-acuity triage questions were negative Care Advice Discussed: * Asthma Attack * Avoid Asthma Triggers * Remove Allergens * Reasons To Call Back - You become worse * Telephone Encounter - Raquel Sandeep - 06/04/2024 9:25 AM EST Patient calling to report ED visit on : Date: 05/26/24 Hospital: [facility] Seen for: Flu and asthma Symptomatic Yes *if yes message should go to Triage Contact pt at [phone] (ugandan) documented in this encounter Plan of Treatment Upcoming Encounters Date Type Department Care Team (Late st Contact Info) Description 07/13/2024 3:30 PM EST Office Visit [facility] MEDICINE [address] [place] [address] Marisa Livingston MD [address] [place] [address] documented as of this encounter Visit Diagnoses Not on filedocumented in this encounter Additional Health Concerns Assessment Noted Time PHQ-9 Depression Total Score: 17 024 9:31 AM EST documented as of this encounter Care Teams Top Installer Relationship Specialty Start Date End Date Marisa Livingston MD [address] [place] [phone] PCP - General Family Medicine 03/12/19 documented as of this encounter
--- OUTSIDE RECORDS SUMMARY | 2024-06-17 18:53 | XMS_ITS | Encounter Summary ---
Author Organization [employer] Address [address] [facility] [address] 7t [place] [address] Care Team Providers Care Photo Tech Name Role Phone Marisa Livingston MD Primary Care Provider + Encounter Details Date Type Department Care Team ([facility] st Contact Info) Description 06/03/2024 Orders Only [facility] ADULT DENTAL [address] [place], [place] [phone] Berlin Hagen, DMD [address] [place] [address] Social History Tobacco Use Types Packs/Day Years [...] Description 07/13/2024 3:30 PM EST Office Visit [facility] [address] [place] [address] Marisa Livingston MD [address] [place] [address] Scheduled Orders Name Type Priority Associated Diagnoses Orde r Schedule PERIODIC ORAL EVALUATION - ESTABLISHED PATIENT Dental Routine 1 Occurren alberto starting 06/03/2024 documented as of this encounter Visit Diagnoses Not on filedocumented in this encounter Additional Health Concerns Assessment Noted Time PHQ-9 Depression Total Score: 17 024 9:31 AM EST documented as of this encounter Care Teams Photo Tech Relationship Specialty Start Date End Date Marisa Livingston MD [address] [place] [address] PCP - General Family Medicine 03/12/19 documented as of this encounter
--- OUTSIDE RECORDS SUMMARY | 2024-06-17 18:53 | XMS_ITS | Encounter Summary ---
Author Organization [employer] Address [address] [facility] 7 [place] [address] Care Team Providers Care Concreting Supervisor Name Role Phone Marisa Livingston MD Primary Care Provider + Reason for Visit * Reason Onset Date Comments Nurse Triage 06/10/2024 Encounter Details Date Type Department Care Team ([facility] st Contact Info) Description 06/10/2024 Telephone [facility] [address] [place] [address] Marisa Livingston MD [address] [place] [address] Nurse Triage Social History Tobacco Use Types [...] Telephone Encounter - Gem Aguila RN - 06/11/2024 9:15 AM EST TC placed to Cleo [phone] in regards to below message. Patient reports she did not go to the ED yesterday because her son fell and she had to bring her son to the hospital d/t needing stitches.Patient reports she plans to come to the [facility] today. Patient reports she is experiencing SOB with exertion. Patient reports she recently had flu (diagnosed at [facility]) however does not feel these s/s are r/t flu. Patient reports theses s/s started after she cleaned one of her apartments which was extremely dirty and had rat feces. Patient reports she last used her nebulizer this morning which she did not see an improvement. Patient also reporting low back pain when sitting. Patient did speak to RN in full sentences and was not coughing during call. Patient reports she will come to [facility] today katarina evaluated. Patient to f/u PRN. * Telephone Encounter - Dayami Bradshaw LPN - 06/10/2024 9:18 AM EST Triage call returned to patient with BLS Jeramie [phone]. Patient calling with shortness of breath. Speaking in short interrupted sentences slight cough and increased shortness of breath with exertion. Has done nebulizer treatment with no improvement. Was seen in [facility] 05/26/24 with similar symptoms and patient confirms that this feels as bad. Had been transferred to ED at that visit. Patient reports concern of exposure to Rat Feces when cleaning and that she also recently had the Flu. Current medication is not helping and agrees to return to the ED now. Patient will be transported with family assistance and advised to activate 911 as needed. Patient verbalized understanding and is in agreement with plan. Will return to [facility] ED now. Forwarded to PCP and team as FYI to follow up PRN Protocol Used: Asthma Attack (Adult) Protocol-Based Disposition: Go to ED/[facility] Now (or to Office with PCP Approval) Positive Triage Questions: * Moderate asthma attack (e.g., SOB at rest, speaks in phrases, audible wheezes) and not resolved after 2 or 3 inhaler or nebulizer treatments given 20 minutes apart * Patient sounds very sick or weak to the triager * All higher-acuity triage questions were negative Care Advice Discussed: * Asthma Attack * Reasons To Call Back - An asthma attack is not better after 2 or 3 quick-relief treatments (such as albuterol by inhaleror nebulizer) 20 minutes apart. - Quick-relief asthma medicine (such as albuterol by inhaler or nebulizer) is needed more often than every 4 hours - You become worse * Telephone Encounter - Rojelio Prabhakar - 06/10/2024 9:07 AM EST Symptoms: Cough, Breathing Trouble Outcome: Transfer to a nurse or provider NOW! Reason: Struggling for each breath (severe trouble breathing) The caller accepted this outcome. Contact pt at [phone] documented in this encounter Plan of Treatment Upcoming Encounters Date Type Department Care Team (Late st Contact Info) Description 07/13/2024 3:30 PM EST Office Visit [facility] [address] [place] [address] Marisa Livingston MD [address] [place], [place] [phone] documented as of this encounter Visit Diagnoses Not on filedocumented in this encounter Additional Health Concerns Assessment Noted Time PHQ-9 Depression Total Score: 17 024 9:31 AM EST documented as of this encounter Care Teams Concreting Supervisor Relationship Specialty Start Date End Date Marisa Livingston MD [address] [place] [phone] PCP - General Family Medicine 03/12/19 documented as of this encounter
--- OUTSIDE RECORDS SUMMARY | 2024-06-17 18:53 | XMS_ITS | Encounter Summary ---
Author Organization [employer] Address [address] [facility] 7 [place] [address] Care Team Providers Care Fast Food Crew Lead Name Role Phone Marisa Livingston MD Primary Care Provider + Reason for Visit * Reason Onset Date Comments July recall 05/20/2024 Encounter Details Date Type Department Care Team ([facility] st Contact Info) Description 05/20/2024 Telephone [facility] MEDICINE [address] [place] [address] Marisa Livingston MD [address] [place] [address] July recall Social History Tobacco Use Types Packs/Day Years [...] encounter Miscellaneous Notes * Telephone Encounter - Danika Chisholm MA - 05/20/2024 10:21 AM EST Tc to pt to schedule fu DUB/asthma recall appt. Appt has been scheduled for 07/13/24 at 3:30 pm. documented in this encounter Plan of Treatment Upcoming Encounters Date Type Department Care Team (Late st Contact Info) Description 07/13/2024 3:30 PM EST Office Visit [facility] MED[facility] [address] [place] [address] Marisa Livingston MD [address] [place] [address] documented as of this encounter Visit Diagnoses Not on filedocumented in this encounter Additional Health Concerns Assessment Noted Time PHQ-9 Depression Total Score: 17 024 9:31 AM EST documented as of this encounter Care Teams Fast Food Crew Lead Relationship Specialty Start Date End Date Marisa Livingston MD [address] [place] [phone] PCP - General Family Medicine 03/12/19 documented as of this encounter
--- OUTSIDE RECORDS SUMMARY | 2024-06-17 18:53 | XMS_ITS | Encounter Summary ---
Author Organization [employer] Address [address] [facility] [address] 7 [place] [address] Care Team Providers Care Center Lead Consultant Name Role Phone Marisa Livingston MD Primary Care Provider + Reason for Visit * Reason Onset Date Comments Appointment 07/12/2022 Encounter Details Date Type Department Care Team ([facility] st Contact Info) Description 07/12/2022 Telephone [facility] ADULT DENTAL [address] [place] [address] Yeison Arnold, DMD [address] [place] [address] Appointment Social History Tobacco Use Types Packs/Day Years Used Date Smoking Tobacco: Former Cigarettes Passive Smoke Exposure: Never Smokeless Tobacco: Never Alcohol Use Standard Drinks/Week Comments Never 0 (1 standard drink = 0.6 oz pur e alcohol) Depression Answer Date Recorded Patient Health Questionnaire-9 Score 4 07/03/2022 Depression Answer Date Recorded Patient Health Questionnaire-2 Score 2 07/03/2022 Comments Unknown Sex and Gender Information Value Date Recorded Sex Assigned at Female 03/18/2022 10:36 AM EDT Legal Sex Female 10:36 AM EDT Gender Identity Female 03/18/2022 10:36 AM EDT Sexual Orientation Straight 03/18/2022 10 :36 AM EDT COVID-19 Exposure Response Date Recorded In the last 10 days, have yo u been in contact with someone who was confirmed or suspected to have Coronavirus/COVID-19? No / Unsure 07/05/2022 8:45 AM EST documented as of this encounter Miscellaneous Notes * Telephone Encounter - Brittany Dowd - 07/12/2022 11:16 AM EST Patient returning call to schedule appt with oral surgeon. Call placed to laura on 07/10. She wasunable to answer call due to being in the hospital. Would like to schedule. Called Aminta to transfercall but no answer. Following up with message. documented in this encounter Plan of Treatment Upcoming Encounters Date Type Department Care Team (Late st Contact Info) Description 07/13/2024 3:30 PM EST Office Visit [facility] [address] [place] [address] Marisa Livingston MD [address] [place] [address] documented as of this encounter Visit Diagnoses Not on filedocumented in this encounter Additional Health Concerns Assessment Noted Time PHQ-9 Depression Total Score: 4 07/03/19 23 10:39 AM EST documented as of this encounter Care Teams Center Lead Consultant Relationship Specialty Start Date End Date Marisa Livingston MD [address] [place] [phone] PCP - General Family Medicine 03/12/19 documented as of this encounter
--- OUTSIDE RECORDS SUMMARY | 2024-06-17 18:53 | XMS_ITS | Encounter Summary ---
Author Organization [employer] Address [address] [place] [address] [address] [place] [address] Care Team Providers Care Champagne Maker Name Role Phone Marisa Livingston MD Primary Care Provider + Encounter Details Date Type Department Care Team (Latest Contact Info) Description 03/26/2019 Abstract [facility] CONVERSIONS Dental, Provider, DDS Social History Tobacco [...] 3:30 PM EST Office Visit [facility] MEDICINE [address] [place] [address] Marisa Livingston MD [address] [place] [address] documented as of this encounter Visit Diagnoses Not on filedocumented in this encounter Care Teams Champagne Maker Relationship Specialty Start Date End Date Marisa Livingston MD [address] [place] [address] PCP - General Family Medicine 03/12/19 documented as of this encounter
--- OUTSIDE RECORDS SUMMARY | 2024-06-17 18:53 | XMS_ITS | Encounter Summary ---
Author Organization [employer] Address [address] [facility] [address] 7 [place] [address] Care Team Providers Care Pearl Technician Name Role Phone Marisa Livingston MD Primary Care Provider + Encounter Details Date Type Department Care Team ([facility] Contact Info) Description 07/19/[address] [facility] ADULT DENTAL [address] [place] [address] Berlin Hagen, DMD [address] [place] [address] Social History Tobacco Use Types Packs/Day Years [...] suspected to have Coronavirus/COVID-19? No / Unsure 07/21/2022 5:25 PM EST documented as of this encounter Plan of Treatment Upcoming Encounters Date Type Department Care Team (Late Contact Info) Description 07/13/2024 3:30 PM EST Office Visit [facility] MEDICINE [address] [place] [address] Marisa Livingston MD [address] [place] [address] documented as of this encounter Visit Diagnoses Not on filedocumented in this encounter Additional Health Concerns Assessment Noted Time PHQ-9 Depression Total Score: 4 07/03/19 23 10:39 AM EST documented as of this encounter Care Teams Pearl Technician Relationship Specialty Start Date End Date Marisa Livingston MD [address] [place] [phone] PCP - General Family Medicine 03/12/19 documented as of this encounter
--- OUTSIDE RECORDS SUMMARY | 2024-06-17 18:53 | XMS_ITS | Encounter Summary ---
Author Organization [employer] Address [address] [place] [address] [address], [place] [address] Care Team Providers Care Gas Collection System Operator Name Role Phone Marisa Livingston MD Primary Care Provider + Encounter Details Date Type Department Care Team (Late st Contact Info) Description 06/27/2022 Abstract [facility] ADULT DENTAL [address] [place] [address] Jeramie Treadwell DDS [address] [place] [address] Social History Tobacco Use Types Packs/Day Years Used Date Smoking Tobacco: Former Cigarettes Passive Smoke Exposure: Never Smokeless Tobacco: Never Comments Unknown Sex and Gender Information Value [...] suspected to have Coronavirus/COVID-19? No / Unsure 06/26/2022 4:52 PM EST documented as of this encounter Plan of Treatment Upcoming Encounters Date Type Department Care Team (Late st Contact Info) Description 07/13/2024 3:30 PM EST Office Visit [facility] MEDICINE [address] [place] [address] Marisa Livingston MD [address] [place] [address] documented as of this encounter Visit Diagnoses Not on filedocumented in this encounter Care Teams Gas Collection System Operator Relationship Specialty Start Date End Date Marisa Livingston MD [address] [place] [phone] PCP - General Family Medicine 03/12/19 documented as of this encounter
--- OUTSIDE RECORDS SUMMARY | 2024-06-17 18:53 | XMS_ITS | Encounter Summary ---
Author Organization [employer] Address [address] [facility] 7 [place] [address] Care Team Providers Care Green Inspector Name Role Phone Marisa Livingston MD Primary Care Provider + Reason for Visit * Reason Comments Med Refill Encounter Details Date Type Department Care Team ([facility] st Contact Info) Description 05/27/2024 Refill [facility] [address] [place] [address] Marisa Livingston MD [address] [place] [phone] Social History Tobacco Use Types Packs/Day Years [...] Description 07/13/2024 3:30 PM EST Office Visit [facility] [address] [place] [phone] Marisa Livingston MD [address] [place] [address] documented as of this encounter Visit Diagnoses Not on filedocumented in this encounter Additional Health Concerns Assessment Noted Time PHQ-9 Depression Total Score: 17 024 9:31 AM EST documented as of this encounter Care Teams Green Inspector Relationship Specialty Start Date End Date Marisa Livingston MD [address] [place] [phone] PCP - General Family Medicine 03/12/19 documented as of this encounter
--- OUTSIDE RECORDS SUMMARY | 2024-06-17 18:53 | XMS_ITS | Encounter Summary ---
Author Organization [employer] Address [address] [facility] 7 [place] [address] Care Team Providers Care Resource Manager Forester Name Role Phone Marisa Livingston MD Primary Care Provider + Reason for Visit * Reason Onset Date Comments Nurse Triage 05/26/2024 Encounter Details Date Type Department Care Team ([facility] st Contact Info) Description 05/26/[address] [facility] [address] [place] [address] Marisa Livingston MD [address] [place] [address] Nurse Triage Social History Tobacco Use Types [...] encounter Miscellaneous Notes * Telephone Encounter - Winsome Cortés RN - 05/26/2024 10:17 AM EST called pt to triage, spoke to pt through Tele[employer] GroupProgram Manager Rn. pt states 2 days duration of congestion, cough, chest tightness, sore throat, hoarseness, intermittent wheezing, fever to 104, and headache/body aches. pt denies known exposures and has not tested for covid. pt speaking in partial sentences with minimal pausing and no audible distress/wheezing. pt uses her inhalers as needed with some relief. advised no available appt to schedule at this time, and advised walk in center. given location, hours, and wait times cautions. advised home care: rest, fluids, steam, humidifier, warm saltwater gargles, lozenges, OTC pain or fever reliever as needed, precautions reviewed, and quarantine as needed. pt understands and agrees with plan. insurance verified. Protocol Used: Cough (Adult) Protocol-Based Disposition: See in Office or Video Visit Today or Tomorrow Video visit offer not recorded Positive Triage Questions: * Continuous (nonstop) coughing interferes with work or school and no improvement using cough treatment per Care Advice * Patient wants to be seen * All higher-acuity triage questions were negative Care Advice Discussed: * Reassurance and Education - Cough * Cough Medicines * Cough Syrup With Dextromethorphan * Coughing Spells * Prevent Dehydration * Avoid Tobacco Smoke * Humidifier * Fever Medicines * Reasons To Call Back - Difficulty breathing - Cough lasts more than 3 weeks - Fever lasts more than 3 days - You become worse * Telephone Encounter - Kassandra Pacheco - 05/26/2024 8:55 AM EST Symptoms: Fever, Wheezing Outcome: Schedule an urgent appointment (within 1 hour) or talk to a nurse or provider soon Reason: Getting worse The caller accepted this outcome. ( Yoruba speaker) documented in this encounter Plan of Treatment Upcoming Encounters Date Type Department Care Team (Late st Contact Info) Description 07/13/2024 3:30 PM EST Office Visit [facility] [address] [place] [address] Marisa Livingston MD [address] [place] [address] documented as of this encounter Visit Diagnoses Not on filedocumented in this encounter Additional Health Concerns Assessment Noted Time PHQ-9 Depression Total Score: 17 024 9:31 AM EST documented as of this encounter Care Teams Resource Manager Forester Relationship Specialty Start Date End Date Marisa Livingston MD [address] [place] [phone] PCP - General Family Medicine 03/12/19 documented as of this encounter
--- OUTSIDE RECORDS SUMMARY | 2024-06-17 18:53 | XMS_ITS | Encounter Summary ---
Author Organization [email or web address] Address [address] [facility] [address] [place] [address] Care Team Providers Care Laboratory Operations Coordinator Name Role Phone Marisa Livingston MD Primary Care Provider + Reason for Visit * Reason Onset Date Comments Nurse Triage 06/17/2024 SOB Encounter Details Date Type Department Care Team ([facility] st Contact Info) Description 06/17/2024 Telephone [facility] [address] [place] [address] Amirah Pugh, [place] [address] [place] [address] Nurse Triage (SOB) Social History Tobacco Use Types Packs/Day Years [...] encounter Miscellaneous Notes * Telephone Encounter - Amirah Pugh RN - 06/17/2024 1:46 PM EST Assessment: Patient presents to Walk- In Center c/o SOB since cleaning her tenants apartment, exposed to rat/mice urine and feces. See in the Walk In Center on 05/26 and was directed to [facility], tested positive forFlu A and given Prednisone 40mg PO x 10 days, Benzonatate for cough, APAP and Motrin for fever/ pain. Patient reports completing course of Prednisone but hs not been any better. Patient is SOB with any movement/ activity such as walking or talking. Patient reports she feels best at rest and withouttalking. Patient also has a headache. Patient is using her inhaler (last used 12pm today) and nebulizer (last used 6am today). Patient reports no change in symptoms after inhaler or nebulizer. Patient also reports irritation in the throat/ chest with SOB. VS as follows (if applicable): Temp 98.6 orally HR 98 regular rate and rhythm BP 124/84 left Arm; Device: Automatic Cuff Size: regular O2 sat 100 % on room air Lung sounds (if applicable) Clear to auscultation bilaterally Allergies Allergen Reactions Latex Itching and Rash Current Outpatient Medications Medication Sig Dispense Refill acetaminophen (Tylenol) 500 MG tablet take 1 tablet by oral route every6 -8 hours as needed not to exceed 4 tablets per 24hrs albuterol 108 (90 Base) MCG/ACT inhaler Inhale 2 puffs every 4 (four) hours. 18 g 2 ergocalciferol (Vitamin D2) 1.25 MG (37503 UT) capsule TAKE 1 CAPSULE(1.25 MG) BY MOUTH 1 TIME EVERY WEEK 12 capsule 1 Fasenra Pen 30 MG/ML injection ferrous sulfate (Fe Tabs) 325 (65 Fe) MG EC tablet Take 1 tablet (325 mg) by mouth with breakfast. Do not crush, chew, or split. 90 tablet 0 fluticasone-salmeterol (Advair) 230-21 MCG/ACT inhaler Inhale 2 puffs in the morning and at bedtime. Rinse mouth with water after use to reduce aftertaste and incidence of candidiasis. Do not swallow. 12 g 11 ipratropium-albuterol (Duo-Neb) 0.5-2.5 mg/3 mL nebulizer solution USE 3 ML VIA NEBULIZER EVERY 6 HOURS NEEDED FOR WHEEZING 180 mL 2 Nebulizers (PulmOne Aerosol Delivery System) [facility] [place] DIRECTED. OXcarbazepine (Trileptal) 300 MG tablet Take 1 tablet by mouth every 12 (twelve) hours. risperiDONE (RisperDAL) 2 MG tablet Take 1 tablet by mouth. SUMAtriptan (Imitrex) 100 MG tablet take 1/2-1 tablet by oral route once after the onset of a migraine attack;may repeat after 2 hours if headache returns, MDD = 4 tabs 30 tablet 3 traZODone (Desyrel) 50 MG tablet TAKE 1 TABLET BY MOUTH EVERY DAY NEEDED FOR SLEEP No current facility-administered medications for this visit. Patient Active Problem List Diagnosis Date Noted Menorrhagia with regular cycle 04/16/2023 Decreased vision in both eyes 01/06/2023 Periodontal disease 12/18/2022 Dental calculus 12/18/2022 Left shoulder pain 11/22/2022 Exercise counseling 11/22/2022 Dietary counseling 11/22/2022 Bipolar depression (CMS/HCC) 11/08/2022 Accidental fall 07/03/2022 Acute frontal sinusitis 07/03/2022 Blurring of visual image 07/03/2022 Chronic low back pain 07/03/2022 Grief 07/03/2022 Knee pain 07/03/2022 Migraine without aura, not refractory 07/03/2022 Morbid obesity (CMS/HCC) 07/03/2022 Numbness of hand 07/03/2022 Pain in wrist 07/03/2022 Recurrent urinary tract infection 07/03/2022 Moderate persistent asthma without complication 07/03/2022 DUB (dysfunctional uterine bleeding) 07/03/2022 Obesity due to excess calories without serious comorbidity 07/03/2022 Encounter for preventive health examination 07/03/2022 In Office Testing COVID neg Plan of care: Report to Dr Cruz Provider evaluation: Yes Patient in Triage room awaiting Provider evaluation in the order of arrival. 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 Since symptoms have been ongoing and VS/lung sounds reassuring patient will remain in room until Provider is able to seeher, if she needs to leave she agrees to return tomorrow. If Patient leaves prior to Provider evaluation she will inform staff that she is leaving and returning tomorrow. Amirah Pugh RN documented in this encounter Plan of Treatment Upcoming Encounters Date Type Department Care Team (Late st Contact Info) Description 07/13/2024 3:30 PM EST Office Visit [facility] [address] [place] [phone] Marisa Livingston MD [address] [place] [phone] documented as of this encounter Visit Diagnoses Not on filedocumented in this encounter Additional Health Concerns Assessment Noted Time PHQ-9 Depression Total Score: 17 024 9:31 AM EST documented as of this encounter Care Teams Laboratory Operations Coordinator Relationship Specialty Start Date End Date Marisa Livingston MD [address] [place] [phone] PCP - General Family Medicine 03/12/19 documented as of this encounter
--- OUTSIDE RECORDS SUMMARY | 2024-06-17 18:53 | XMS_ITS | Encounter Summary ---
Author Organization [employer] Address [address] [place] [address] [address] [address] Care Team Providers Care Customer Service Rep Name Role Phone Marisa Livingston MD Primary Care Provider + Reason for Referral * Consultation (Routine) - Pending Review Specialty Diagnoses / Procedures Referred By Contdaniela t Referred To Contact Pulmonary Disease Diagnoses Dyspnea on exertion Moderate persistent asthma without complication Jaki Cruz MD [address] [place] [phone] Phone: tel: fax: Referral ID Status Reason Start Date Expiration Date Visits Requested Visits Authorized [id number] Pending Review Specialty Services Required 06/17/2024 06/17/2025 1 1 Reason for Visit * Reason Comments Shortness of Breath Encounter Details Date Type Department Care Team (Late st Contact Info) Description 06/17/2024 3:20 PM EST Office Visit [facility] [address] [place] [address] [phone] Jaki Cruz MD [address] [place] [address] [phone] Dyspnea on exertion (Primary Dx); Moderate persistent asthma without complication Social History Tobacco Use Types Packs/Day Years [...] AM EDT documented as of this encounter Last Filed Vital Signs Vital Sign Reading [...] Mass Index 30.9 06/17/2024 2:18 PM EST documented in this encounter Progress Notes * Fawn Moody - 06/17/2024 3:20 PM EST Subjective Patient ID: Cleo Sun is a 33 y.o. female with past medical history of asthma, obesity, and depression who presents to walk in clinic for Shortness of Breath. Per triage, pt c/o SOB since cleaning her tenants apartment, exposed to rat/mice urine and feces. See in the [facility] on 05/26/24 and was directed to [facility] ED, tested positive for Flu A and given Prednisone 40mg PO x 10 days, Benzonatate for cough, APAP and Motrin for fever/ pain. Patient reportscompleting course of Prednisone but hs not been any better. Patient is SOB with any movement/ activi ty such as walking or talking. Patient reports she feels best at rest and without talking. Patient also has a headache. Patient is using her inhaler (last used 12pm today) and nebulizer (last used 6am today). Patient reports no change in symptoms after inhaler or nebulizer. Patient also reports irritation in the throat/ chest with SOB. Pt reports she is still experiencing runny nose, cough and migraines. She says she has been tastingblood in her mouth. Pt states she has environmental allergies and was starting to clean her house on 05/24/23 and th next day started having fevers. She notes 2 days after she started feeling SOB and having asthma. Pt says this does not feel consistent with her usual asthma. She reports she had aCXR when she was seen in the ED on 05/26 which she was told was normal. Pt reports SOB with talking or walking, se feels improved when sitting. Denies chest pain. She notes had seen a service line bus cleaner, but cannot remember who she was seeing. Review of Systems Constitutional: Negative for fever and unexpected weight change. Respiratory: Positive for cough and shortness of breath. Cardiovascular: Negative for chest pain. Gastrointestinal: Negative for abdominal pain. Genitourinary: Negative for difficulty urinating. Objective Visit Vitals BP 124/84 (BP Location: Left arm, Patient Position: Sitting, BP Cuff Size: Large adult) Pulse 98 Temp 98.6 ??F (37 ??C) (Oral) Resp 22 Ht 5' 4 (1.626 m) Wt 180 lb (81.6 kg) SpO2 100% BMI 30.90 kg/m?? Smoking Status Former BSA 1.92 m?? Physical Exam Constitutional: Appearance: Normal appearance. She is obese. Cardiovascular: Rate and Rhythm: Normal rate and regular rhythm. Heart sounds: Normal heart sounds. Pulmonary: Effort: Pulmonary effort is normal. Breath sounds: Normal breath sounds. No stridor. No wheezing, rhonchi or rales. Comments: Occasionally pursing lips with expiration. When speaking takes sharp breath as if hiccup or tic. Able to speak in full sentences. No accessory muscle use. No tachypnea. Moving air well. Neurological: General: No focal deficit present. Mental Status: She is alert. Psychiatric: Behavior: Behavior normal. CXR 06/17/24 no acute process Office Visit on 06/17/2024 Component Date Value Rapid COVID Ag 06/17/2024 Negative Influenza A 06/17/2024 Negative Influenza B 06/17/2024 Negative Rapid Strep A Screen 06/17/2024 Negative D Dimer High Sensitivity 06/17/2024 232 White Blood Count 06/17/2024 6.9 Red Blood Count 06/17/2024 4.52 Hemoglobin 06/17/2024 8.8 (L) Hematocrit 06/17/2024 30.7 (L) Mean Corpuscular Volume 06/17/2024 67.9 (L) Mean Corpuscular Hemoglo* 06/17/2024 19.5 (L) Mean Corpuscular HGB Conc 06/17/2024 28.7 (L) Red Cell Distribution Wi* 06/17/2024 19.4 (H) Platelet Count 06/17/2024 346 Mean Platelet Volume 06/17/2024 9.4 Neutrophils Percent Auto 06/17/2024 60.7 Imm Gran Pct Auto 06/17/2024 0.3 Lymphocytes Percent Auto 06/17/2024 27.4 Monocytes Percent Auto 06/17/2024 6.4 Eosinophils Percent Auto 06/17/2024 4.8 (H) Basophils Percent Auto 06/17/2024 0.4 NRBC Pct Auto 06/17/2024 0.0 Neutrophils Absolute Auto 06/17/2024 4.2 Imm Gran Abs Auto 06/17/2024 0.02 Lymphocytes Absolute Au* 06/17/2024 1.9 Monocytes Absolute Auto 06/17/2024 0.4 Eosinophils Absolute Auto 06/17/2024 0.3 Basophils Absolute Auto 06/17/2024 0.0 NRBC Abs Auto 06/17/2024 0.000 C Reactive Protein 06/17/2024 <0.10 Problem List Items Addressed This Visit Dyspnea on exertion - Primary Reports dyspnea on exertion, denies SOB at rest. Respiratory exam reassuring. No wheezing, rales orronchi. Dx with Influenza A on 05/26/24. Still having persistent SOB and coughing after completing prednisone course of 10 days and taking Benzonatate. -ordered D-dimer, CBC, CRP and Pertussis Bordetella toxin Antibody 06/17/24 -ordered repeat CXR 06/17/24 -Discussed will call pt with results and if D-dimer is elevated she needs to go to the ER to get CTA. Relevant Orders POCT Rapid Covid-19 BinaxNOW (Completed) Influenza A (ID NOW Rapid Molecular) (Completed) Influenza B (ID NOW Rapid Molecular) (Completed) POCT rapid strep A manually resulted (Completed) XR Chest 2 Views (Completed) D Dimer High Sensitivity (Completed) CBC auto differential (Completed) C-reactive Protein (Completed) Pertussis Bordetella toxin (PT) Antibody (IgG), Immunoassay Referral to Pulmonology Moderate persistent asthma without complication Relevant Orders Referral to Pulmonology -No evidence of acute disease process. Persistent SOB and cough. 100% O2 SAT on room air. Addendum 06/17/24 5:11 PM PT contacted to reviewed dimer, worsening anemia and need for ER evaluation. She repots life long anemia and denies current specialist. -Ordered XR and labs. D dimer positive, pt advised to go to Er for r/o PE and worsening anemia. Sheagrees to go but has to find someone to watch her children who are disabled. She agrees to call 911is symptoms worsen prior to her going to ER. -ER precautions discussed. -Seek medical attention for worsening symptoms. IFawn, am serving as a scribe to document services personally performed by Dr. Phipps, based on the patient's response to questions by provider and providers statements to me. documented in this encounter Miscellaneous Notes * Assessment & Plan Note - Fawn Moody - 06/17/2024 2:51 PM ESTAssociated Problem(s): Dyspnea on exertion Reports dyspnea on exertion, denies SOB at rest. Respiratory exam reassuring. No wheezing, rales orronchi. Dx with Influenza A on 05/26/24. Still having persistent SOB and coughing after completing prednisone course of 10 days and taking Benzonatate. -ordered D-dimer, CBC, CRP and Pertussis Bordetella toxin Antibody 06/17/24 -ordered repeat CXR 06/17/24 -Discussed will call pt with results and if D-dimer is elevated she needs to go to the ER to get CTA. documented in this encounter Plan of Treatment Upcoming Encounters Date Type Department Care Team (Late st Contact Info) Description 07/13/2024 3:30 PM EST Office Visit [facility] [address] [place] [phone] Marisa Livingston MD [address] [place] [address] Scheduled Orders Name Type Priority Associated Diagnoses Orde r Schedule Pertussis Bordetella toxin (PT) Antibody (IgG), Immunoassay Lab Routine Dyspnea on exertion Expected: 06/17/2024 (Approximate), Expires: 06/17/2025 Scheduled Referrals Name Type Priority Associated Diagnoses Orde r Schedule Referral to Pulmonology Outpatient Referral Routine Dyspnea on exertion Moderate persistent asthma without complication Expected: 06/17/2024 (Approximate), Expires: 06/17/2025 documented as of this encounter Procedures Procedure Name Priority Date/Time Associated Diagnosis Comments D DIMER HIGH SENSITIVITY STAT 06/17/2024 3:32 PM EST Dyspnea on exertion CBC WITH AUTO DIFFERENTIAL Routine 06/17/2024 3:32 PM EST Dyspnea on exertion C-REACTIVE PROTEIN Routine 06/17/2024 3: 32 PM EST Dyspnea on exertion XR CHEST 2 VIEWS Routine 06/17/2024 3:00 PM EST Dyspnea on exertion POCT INFLUENZA B (ID NOW RAPID MOLECULAR) Routine 06/17/2024 2:36 PM EST Dyspnea on exertion POCT INFLUENZA A (ID NOW RAPID MOLECULAR) Routine 06/17/2024 2:36 PM EST Dyspnea on exertion POCT RAPID STREP A Routine 06/17/2024 2: 36 PM EST Dyspnea on exertion POCT RAPID COVID ANTIGEN Routine 06/17/2024 2:09 PM EST Dyspnea on exertion documented in this encounter Results * C-reactive Protein (06/17/2024 3:32 PM EST) C Reactive Protein <0.10 < or = 0.50 mg/dL [facility] Blood Venous blood specimen / Unknown 06/17/2024 3:32 PM EST 06/17/2024 3:59 PM EST us Jaki Cruz MD LAB BLOOD ORDERABLES Final Result [facility] [address] [place] [phone] * (ABNORMAL) CBC auto differential (06/17/2024 3:32 PM EST) White Blood Count 6.9 4.8 - 10.8 X10*3/uL [facility] Red Blood Count 4.52 4.20 - 5.50 X10*6/uL [facility] Hemoglobin 8.8(L) 12.0 - 16.0 g/dl [facility] Hematocrit 30.7(L) 37.0 - 47.0 % [facility] Mean Corpuscular Volume 67.9(L) 80.0 - 98.0 fL [facility] Mean Corpuscular Hemoglobin 19.5(L) 27.0 - 33.0 pg [facility] Mean Corpuscular HGB Conc 28.7(L) 31.0 - 35.0 g/dl [facility] Red Cell Distribution Width 19.4(H) 11.0 - 16.0 % [facility] Platelet Count 346 160 - 400 X10*3/uL [facility] Mean Platelet Volume 9.4 9.4 - 12.3 fL [facility] Neutrophils Percent Auto 60.7 45 - 73 % [facility] Imm Gran Pct Auto 0.3 0.0 - 0.4 % [facility] Lymphocytes Percent Auto 27.4 20 - 40 % [facility] Monocytes Percent Auto 6.4 2 - 11 % [facility] Eosinophils Percent Auto 4.8(H) 0 - 4 % [facility] Basophils Percent Auto 0.4 0 - 2 % [facility] NRBC Pct Auto 0.0 0.0 - 0.2 /100WBC [facility] Neutrophils Absolute Auto 4.2 2.0 - 8.3 x10*3/uL [facility] Imm Gran Abs Auto 0.02 0.00 - 0.03 X10*3/uL [facility] Lymphocytes Absolute Auto 1.9 1.2 - 4.9 X10*3/uL [facility] Monocytes Absolute Auto 0.4 0.1 - 1.2 X10*3/uL [facility] Eosinophils Absolute Auto 0.3 0.0 - 0.4 X10*3/uL [facility] Basophils Absolute Auto 0.0 0.0 - 0.2 X10*3/uL [facility] NRBC Abs Auto 0.000 0.0 - 0.012 X10*3/uL [facility] Blood Venous blood specimen / Unknown 06/17/2024 3:32 PM EST 06/17/2024 3:59 PM EST us Jaki Cruz MD LAB BLOOD ORDERABLES Final Result Performing Organization Address [facility] de Phone Number [facility] [address] [place] [phone] * D Dimer High Sensitivity (06/17/2024 3:32 PM EST) D Dimer High Sensitivity 232 NG/ML [facility] Comment:D-DIMER HS REFERENCE RANGENote: Our assay [...] BLOOD ORDERABLES Final Result Performing Organization Address [facility] de Phone Number [facility] [address] [place] [phone] * XR Chest 2 Views (06/17/2024 3:00 PM EST) Anatomical Region Laterality Modality Chest Radiographic Angelita ging 06/17/2024 3:00 PM EST Narrative 06/17/2024 3:55 PM EST ?[facility] ?[address] ?[place] [address] ?XRay Report ? Signed ? Patient: Luis Sun,Cleo J ?MR#: ?? [id number] ? : 1990 ?Acct:[id number] ? Age/Sex: 33 / F ?ADM Date: 01/30/25 ? Loc: HO.HHCX ? Attending Dr: Jaki Cruz MD ? Ordering Physician: Jaki Cruz MD ?? Date of Service: 06/17/24 ?? Procedure(s): XR chest 2V ?? Accession Number(s): [id number] ? cc: Jaki Cruz MD ? EXAMINATION: [...] ??Melchor Faria MD ??06/17/2024 03:52 PM EST ?? RP ? Dictated By: ?Melchor Faria MD ? Signed By: ?<Electronically signed by Melchor Faria MD in OV> ?06/17/24 1552 ? DD/ 1500 ? TD/TT: 06/17/24 1520 ? Dispensing And Measuring Optician: ? 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 Donsangitajanellelliottter, Image - 06/17/[address] [address] XRay Report Signed Patient: Cleo Rock JMR#: [id number] : 1990Acct:[id number] Age/Sex: 33 / FADM Date: 06/17/24 Loc: HO.HHCX Attending Dr: Jaki Cruz MD Ordering Physician: Jaki Cruz MD Date of Service: 06/17/24 Procedure(s): XR chest 2V Accession Number(s): [id number] cc: Jaki Cruz MD EXAMINATION: XR CHEST [...] Melchor Faria MD 06/17/2024 03:52 PM EST Dictated By: Melchor Faria MD Signed By: <Electronically signed by Melchor Faria MD in OV> 06/17/24 1552 DD/ 1500 TD/TT: 06/17/24 1520 Dispensing And Measuring Optician: Jaki Cruz MD IMG XR PROCEDURES Final Re sult * POCT rapid strep A manually resulted (06/17/2024 2:36 PM EST) [facility] Rapid Strep A Screen Negative Negative, None Detected Swab 06/17/2024 2:36 PM EST Jaki Cruz MD POINT OF CARE TEST ENTER/E DIT ORDERABLES Final Result * Influenza B (ID NOW Rapid Molecular) (06/17/2024 2:36 PM EST) [facility] Influenza B Negative Negative, Indeterminate [facility] Swab 06/17/2024 2:36 PM EST Jaki Cruz MD POINT OF CARE TEST ENTER/E DIT ORDERABLES Final Result Performing Organization Address City/[facility]/ZIP Co de Phone Number [facility] [address] [place] [phone] * Influenza A (ID NOW Rapid Molecular) (06/17/2024 2:36 PM EST) [facility] Influenza A Negative Negative, Indeterminate [facility] Swab 06/17/2024 2:36 PM EST Jaki Cruz MD POINT OF CARE TEST ENTER/E DIT ORDERABLES Final Result Performing Organization Address [facility] [[email or web address]] Co de Phone Number [facility] [address] [place] [phone] * POCT Rapid Covid-19 BinaxNOW (06/17/2024 2:09 PM EST) [facility] Rapid COVID Ag Negative Sage 06/17/2024 2:09 PM EST Jkai Cruz MD POINT OF CARE TEST ENTER/E DIT ORDERABLES Final Result documented in this encounter Visit Diagnoses Diagnosis Dyspnea on exertion- Primary Other dyspnea and respiratory abnormality Moderate persistent asthma without complication documented in this encounter Additional Health Concerns Assessment Noted Time PHQ-9 Depression Total Score: 17 024 9:31 AM EST documented as of this encounter Care Teams Customer Service Rep Relationship Specialty Start Date End Date Marisa Livingston MD [address] [place] [address] PCP - General Family Medicine 03/12/19 documented as of this encounter
--- OUTSIDE RECORDS SUMMARY | 2024-06-17 18:53 | XMS_ITS | Encounter Summary ---
Author Organization [employer] Address [address] [place] [address] Care Team Providers Care Cardiac Cath Rn Name Role Phone Marisa Livingston MD Primary Care Provider + Encounter Details Date Type Department Care Team ([facility] st Contact Info) Description 05/26/2024 4:00 PM EST Office Visit [facility] [address] [place] [address] Joann Sandoval MD [address] [place] [address] Acute severe exacerbation of asthma (Primary Dx) Social History Tobacco Use Types Packs/Day Years [...] Sign Reading Time Taken Comments Blood Pressure 124/85 05/26/2024 2:25 PM EST Pulse 112 05/26/2024 2:25 PM EST 111-1 12 Temperature 36.7 ??C (98.1 ??F) 05/26/2024 2:25 PM ES T Respiratory Rate - - Oxygen Saturation 99% 05/26/2024 2:25 PM EST RA Inhaled Oxygen Concentration - - Weight - - Height - - Body Mass Index - - documented in this encounter Progress Notes * Laurie Hernandez RN - 05/26/2024 4:00 PM EST Pt noted to SOB upon arrival to Walk In, difficulty verifying full name and due to SOB. Pt put on 2L, weaned to 1L oxygen for comfort. Pt reporting fever of '104.5 yesterday, SOB (any exertion including talking), productive thick yellow-brown cough, ST, mid-sternal chest discomfort, lower backpain and BA x2 days. Pt reports she is out of inhaler and has not taken any medications for pain orfever. RN gave verbal report to Dr. Sandoval, whom saw pt immediately, Prednisone 40mg and Duoneb administered per verbal order per Dr. Sandoval. EMS called by [facility] [place]. Upon arrival to Walk In [place], EMS given verbal report. Pt to be transported to [facility]. Pt to F/U as needed upon discharge. * Joann Sandoval MD - 05/26/2024 4:00 PM EST Subjective Patient ID: Cleo Sun is a 33 y.o. female who presents for No chief complaint on file.. Asthma She complains of chest tightness, difficulty breathing, shortness of breath and wheezing. This is anew problem. The current episode started today. The problem occurs constantly. The problem has beenrapidly worsening. Associated symptoms include dyspnea on exertion. Pertinent negatives include no appetite change or chest pain. Her symptoms are aggravated by change in weather. Her symptoms are alleviated by beta-agonist. She reports no improvement on treatment. Her past medical history is significant for asthma. Review of Systems Constitutional: Negative for appetite change. Respiratory: Positive for shortness of breath and wheezing. Cardiovascular: Positive for dyspnea on exertion. Negative for chest pain. Objective Physical Exam Constitutional: General: She is in acute distress. Cardiovascular: Rate and Rhythm: Tachycardia present. Pulmonary: Effort: Tachypnea present. Breath sounds: Decreased breath sounds and wheezing present. Assessment/Plan Diagnoses and all orders for this visit: Acute severe exacerbation of asthma Comments: pt is given prednisone 40mg and Duoneb Neb in the office She is transported to ER for Further management Orders: - predniSONE (Deltasone) tablet 40 mg - ipratropium-albuterol (Duo-Neb) 0.5-2.5 mg/3 mL nebulizer solution 3 mL documented in this encounter Plan of Treatment Upcoming Encounters Date Type Department Care Team (Late st Contact Info) Description 07/13/2024 3:30 PM EST Office Visit [facility] [address] [place] [address] Marisa Livingston MD [address] [place] [address] documented as of this encounter Visit Diagnoses Diagnosis Acute severe exacerbation of asthma- Primary documented in this encounter Administered Medications Inactive Administered Medications - up to 3 most recent administrations Medication Order MAR Action Action Date Dose Rate Site ipratropium-albuterol (Duo-Neb) 0.5-2.5 mg/3 mL nebulizer solution 3 mL 3 mL, Nebulization, Once, On Fri05/26/24 at 1445, For 1 doseIndications:Acute severe exacerbation of asthma Given 05/26/2024 2:45 PM EST 3 mL predniSONE (Deltasone) tablet 40 mg 40 mg, Oral, Once, On Fri05/26/24 at 1445, For 1 doseIndications:Acute severe exacerbation of asthma Given 05/26/2024 2:45 PM EST 40 mg documented in this encounter Additional Health Concerns Assessment Noted Time PHQ-9 Depression Total Score: 17 024 9:31 AM EST documented as of this encounter Care Teams Cardiac Cath Rn Relationship Specialty Start Date End Date Marisa Livingston MD [address] [place] [phone] PCP - General Family Medicine 03/12/19 documented as of this encounter
--- OUTSIDE RECORDS SUMMARY | 2024-06-17 18:53 | XMS_ITS | Encounter Summary ---
Author Organization [employer] Address [address] [facility] [address] [place] [address] Care Team Providers Care Radio Message Router Name Role Phone Marisa Livingston MD Primary Care Provider + Reason for Visit * Reason Comments Med Refill Encounter Details Date Type Department Care Team ([facility] st Contact Info) Description 06/07/2024 Refill [facility] [address] [place] [address] Marisa Livingston MD [address] [place] [address] Social History Tobacco Use Types Packs/Day Years [...] Description 07/13/2024 3:30 PM EST Office Visit [facility] [address] [place] [phone] Marisa Livingston MD [address] [place] [address] documented as of this encounter Visit Diagnoses Not on filedocumented in this encounter Additional Health Concerns Assessment Noted Time PHQ-9 Depression Total Score: 17 024 9:31 AM EST documented as of this encounter Care Teams Radio Message Router Relationship Specialty Start Date End Date Marisa Livingston MD [address] [place] [phone] PCP - General Family Medicine 03/12/19 documented as of this encounter
== END 2024-06-17 15:00 | disposition home or self-care (01) ==
LOC: HO.HHCX 14:59
PROVIDERS: Visit Provider Family Medicine
DX: R06.09 Other forms of dyspnea (principal)
CPT/HCPCS: 71046

== ENCOUNTER → 2024-06-17 15:00 | Outpatient (BNV) | payer MEDICAID, SELFPAY | PROVIDERS: Visit Provider Radiology Diagnostic Radiology | DX: R06.09 Other forms of dyspnea (principal) | CPT/HCPCS: 71046 ==

== ENCOUNTER 2024-06-17 15:29 | Outpatient (REF) | payer MEDICAID, SELFPAY ==
[2024-06-17 16:05] LABS: MANUAL DIFF FLAG NO
[2024-06-17 16:17] LABS: Basophils Percent Auto 0.4 % (0-2); Eosinophils Absolute Auto 0.3 X10*3/uL (0.0-0.4); Eosinophils Percent Auto 4.8 % (0-4); Hematocrit 30.7 % (37.0-47.0); Hemoglobin 8.8 g/dl (12.0-16.0); Imm Gran Abs Auto 0.02 X10*3/uL (0.00-0.03); Imm Gran Pct Auto 0.3 % (0.0-0.4); Lymphocytes Absolute Auto 1.9 X10*3/uL (1.2-4.9); Lymphocytes Percent Auto 27.4 % (20-40); Mean Corpuscular HGB Conc 28.7 g/dl (31.0-35.0); Mean Corpuscular Hemoglobin 19.5 pg (27.0-33.0); Mean Corpuscular Volume 67.9 fL (80.0-98.0); Mean Platelet Volume 9.4 fL (9.4-12.3); Monocytes Absolute Auto 0.4 X10*3/uL (0.1-1.2); Monocytes Percent Auto 6.4 % (2-11); Neutrophils Absolute Auto 4.2 x10*3/uL (2.0-8.3); Neutrophils Percent Auto 60.7 % (45-73); Platelet Count 346 X10*3/uL (160-400); Red Blood Count 4.52 X10*6/uL (4.20-5.50); Red Cell Distribution Width 19.4 % (11.0-16.0); White Blood Count 6.9 X10*3/uL (4.8-10.8)
[2024-06-17 16:21] LABS: D Dimer High Sensitivity 232 NG/ML
[2024-06-17 16:38] LABS: C Reactive Protein < 0.10 mg/dL (< or = 0.50)
--- OUTSIDE RECORDS SUMMARY | 2024-06-17 19:15 | XMS_ITS | Encounter Summary ---
Author Organization [employer] Address [address] [facility] 7 [place] [address] Care Team Providers Care Assembler Molded Frames Name Role Phone Marisa Livingston MD Primary Care Provider + Reason for Visit * Reason Onset Date Comments July recall 05/20/2024 Encounter Details Date Type Department Care Team ([facility] st Contact Info) Description 05/20/2024 Telephone [facility] [address] [place] [address] Marisa Livingston MD [address] [place] [address] July recall Social History Tobacco Use Types [...] Description 07/13/2024 3:30 PM EST Office Visit [facility] [address] [place] [phone] Marisa Livingston MD [address] [place] [address] documented as of this encounter Visit Diagnoses Not on filedocumented in this encounter Additional Health Concerns Assessment Noted Time PHQ-9 Depression Total Score: 17 024 9:31 AM EST documented as of this encounter Care Teams Assembler Molded Frames Relationship Specialty Start Date End Date Marisa Livingston MD [address] [place] [phone] PCP - General Family Medicine 03/12/19 documented as of this encounter
--- OUTSIDE RECORDS SUMMARY | 2024-06-17 19:15 | XMS_ITS | Encounter Summary ---
Author Organization [employer] Address 75 [facility] 7 [place] [address] Care Team Providers Care Supervisor Coffee Name Role Phone Marisa Livingston MD Primary Care Provider + Reason for Visit * Reason Onset Date Comments Nurse Triage 05/26/2024 Encounter Details Date Type Department Care Team ([facility] st Contact Info) Description 05/26/2024 Telephone [facility] MEDICINE [address] [place] [address] Marisa Livingston MD 230 [place] [address] Nurse Triage Social History Tobacco Use Types [...] pt to triage, spoke to pt through [employer]Recycler Forklift Driver Truck Driver. pt states 2 days duration of congestion, [...] worse The caller accepted this outcome. ( Pashto speaker) documented in this encounter Plan of Treatment Upcoming Encounters Date Type Department Care Team (Late st Contact Info) Description 07/13/2024 3:30 PM EST Office Visit [facility] MEDICINE [address] [place] [address] Marisa Livingston MD [address] [place] [address] documented as of this encounter Visit Diagnoses Not on filedocumented in this encounter Additional Health Concerns Assessment Noted Time PHQ-9 Depression Total Score: 17 024 9:31 AM EST documented as of this encounter Care Teams Supervisor Coffee Relationship Specialty Start Date End Date Marisa Livingston MD 230 [place] [address] PCP - General Family Medicine 03/12/19 documented as of this encounter
--- OUTSIDE RECORDS SUMMARY | 2024-06-17 19:15 | XMS_ITS | Encounter Summary ---
Author Organization [employer] Address 75 [facility] 7 [place] [address] Care Team Providers Care Music Promoter Name Role Phone Marisa Livingston MD Primary Care Provider + Reason for Visit * Reason Onset Date Comments Nurse Triage 06/04/2024 Encounter Details Date Type Department Care Team ([facility] st Contact Info) Description 06/04/2024 Telephone [facility] MEDICINE [address] [place] [address] Marisa Livingston MD 230 [place] [address] Nurse Triage Social History Tobacco Use Types [...] 3:17 PM EST TC placed to patient [phone] however no answer and RN unable to leave VM d/t VM being full. Patient to f/u PRN. * Telephone Encounter - Dominic Shearer - 06/08/2024 11:53 AM EST Tc from pt returning missed call , pt is requesting a callback at [phone] * Telephone Encounter - Gem Aguila RN - 06/08/2024 9:52 AM EST RN reviewed [employer] and [facility]enes. Patient did not go to either facility. TC placed to patient [phone] however no answer and VM is full. RN unable to leave VM. TC placed to secondary number [phone] however number is OOS. RN unable to leave VM. TC placed to spouse [phone] however the service you are attempting to use has been restricted or is unavailable . RN unable to leave VM. Patientto f/u PRN. * Telephone Encounter - Dedra Thomas RN - 06/04/2024 10:06 AM EST Sent to team for [facility] ER status check PRN. * Telephone Encounter - Dedra Thomas RN - 06/04/2024 9:58 AM EST Per [facility] notes, pt positive for influenza A. Given [...] advised of disposition, agrees to return to [facility] ED for evaluation. Rev iewed home care [...] ED visit on : Date: 05/26/24 Hospital: [facility] Seen for: Flu and asthma Symptomatic Yes *if yes message should go to Triage Contact pt at [phone] (croatian) documented in this encounter Plan of Treatment Upcoming Encounters Date Type Department Care Team (Late st Contact Info) Description 07/13/2024 3:30 PM EST Office Visit [facility] MEDICINE [address] [place] [address] Marisa Livingston MD [address] [place] [address] documented as of this encounter Visit Diagnoses Not on filedocumented in this encounter Additional Health Concerns Assessment Noted Time PHQ-9 Depression Total Score: 17 024 9:31 AM EST documented as of this encounter Care Teams Music Promoter Relationship Specialty Start Date End Date Marisa Livingston MD [address] [place] [address] PCP - General Family Medicine 03/12/19 documented as of this encounter
--- OUTSIDE RECORDS SUMMARY | 2024-06-17 19:15 | XMS_ITS | Encounter Summary ---
Author Organization [employer] Address 75 [facility] 7 [place] [address] Care Team Providers Care Helmet Hat Sweatband Puncher Name Role Phone Marisa Livingston MD Primary Care Provider + Reason for Visit * Reason Comments Med Refill Encounter Details Date Type Department Care Team ([facility] st Contact Info) Description 06/07/2024 Refill [facility] MEDICINE [address] [place] [address] Marisa Livingston MD 230 [place] [address] Social History Tobacco Use Types Packs/Day Years [...] your housing situation today? I have yenny rfost 03/03/[address] you li [...] 3:30 PM EST Office Visit [facility] MEDICINE [address] [place] [address] Marisa Livingston MD 230 [place] [address] documented as of this encounter Visit Diagnoses Not on filedocumented in this encounter Additional Health Concerns Assessment Noted Time PHQ-9 Depression Total Score: 17 024 9:31 AM EST documented as of this encounter Care Teams Helmet Hat Sweatband Puncher Relationship Specialty Start Date End Date Marisa Livingston MD [address] [place] [address] PCP - General Family Medicine 03/12/19 documented as of this encounter
--- OUTSIDE RECORDS SUMMARY | 2024-06-17 19:15 | XMS_ITS | Encounter Summary ---
Author Organization [employer] Address 75 [facility] 7 [place] [address] Care Team Providers Care Psychologist Social Name Role Phone Marisa Livingston MD Primary Care Provider + Reason for Visit * Reason Onset Date Comments Nurse Triage 06/10/2024 Encounter Details Date Type Department Care Team ([facility] st Contact Info) Description 06/10/2024 Telephone [facility] MEDICINE 230 [place] [address] Marisa Livingston MD [address] [place] [address] Nurse Triage Social History Tobacco Use Types [...] 9:15 AM EST TC placed to Cleo [phone] in regards to below message. Patient reports she did not go to the ED yesterday because her son fell and she had to bring her son to the hospital d/t needing stitches.Patient reports she plans to come to the [facility] today. Patient reports she is experiencing SOB with exertion. Patient reports she recently had flu (diagnosed at [facility]) however does not feel these s/s are [...] call. Patient reports she will come to [facility] today katarina evaluated. Patient to f/u PRN. * Telephone Encounter - Dayami Bradshaw LPN - 06/10/2024 9:18 AM EST Triage call returned to patient with BLS Jeramie [phone]. Patient calling with shortness of breath. Speaking in short interrupted sentences slight cough and increased shortness of breath with exertion. Has done nebulizer treatment with no improvement. Was seen in [facility] 05/26/24 with similar symptoms and patient [...] in agreement with plan. Will return to [facility] now. Forwarded to PCP and team as FYI to follow up PRN Protocol Used: Asthma Attack (Adult) Protocol-Based Disposition: Go to ED[facility] Now (or to Office with PCP Approval) [...] caller accepted this outcome. Contact pt at [phone] documented in this encounter Plan of Treatment Upcoming Encounters Date Type Department Care Team (Late st Contact Info) Description 07/13/2024 3:30 PM EST Office Visit [facility] MEDICINE [address] [place] [address] Marisa Livingston MD [address] [place], [place] [phone] documented as of this encounter Visit Diagnoses Not on filedocumented in this encounter Additional Health Concerns Assessment Noted Time PHQ-9 Depression Total Score: 17 024 9:31 AM EST documented as of this encounter Care Teams Psychologist Social Relationship Specialty Start Date End Date Marisa Livingston MD [address] [place] [address] PCP - General Family Medicine 03/12/19 documented as of this encounter
--- OUTSIDE RECORDS SUMMARY | 2024-06-17 19:15 | XMS_ITS | Encounter Summary ---
Author Organization [employer] Address 75 [facility] 7t [place] [address] Care Team Providers Care Cracking Machine Operator Name Role Phone Marisa Livingston MD Primary Care Provider + Reason for Visit * Reason Onset Date Comments Nurse Triage 06/17/2024 SOB Encounter Details Date Type Department Care Team ([facility] st Contact Info) Description 06/17/2024 Telephone [facility] 230 [place] [address] Amirah Pugh, CHAPITO 230 [place] [address] Nurse Triage (SOB) Social History Tobacco Use [...] Center on 05/26 and was directed to [facility], tested positive forFlu A and given [...] g 2 ergocalciferol (Vitamin D2) 1.25 MG (62713 UT) capsule TAKE 1 CAPSULE(1.25 MG) BY [...] NEEDED FOR WHEEZING 180 mL 2 Nebulizers (Geelbe Aerosol Delivery System) [facility] USE DIRECTED. 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 Since symptoms have been [...] Description 07/13/2024 3:30 PM EST Office Visit [facility] MEDICINE [address] [place] [address] Marisa Livingston MD [address] [place] [address] documented as of this encounter Visit Diagnoses Not on filedocumented in this encounter Additional Health Concerns Assessment Noted Time PHQ-9 Depression Total Score: 17 024 9:31 AM EST documented as of this encounter Care Teams Cracking Machine Operator Relationship Specialty Start Date End Date Marisa Livingston MD [address] [place] [address] PCP - General Family Medicine 03/12/19 documented as of this encounter
--- OUTSIDE RECORDS SUMMARY | 2024-06-17 19:15 | XMS_ITS | Encounter Summary ---
Author Organization [employer] Address [address] [facility] [address] 7 [place] [address] Care Team Providers Care Security Assurance Analyst Name Role Phone Marisa Livingston MD Primary Care Provider + Reason for Visit * Reason Onset Date Comments Appointment 07/12/2022 Encounter Details Date Type Department Care Team ([facility] st Contact Info) Description 07/12/2022 Telephone [facility] ADULT DENTAL 230 [place] [address] Yeison Arnold, DMD [address] [place] [address] Appointment Social History Tobacco Use Types Packs/Day [...] Description 07/13/2024 3:30 PM EST Office Visit [facility] MEDICINE [address] [place] [address] Marisa Livingston MD [address] [place] [address] documented as of this encounter Visit Diagnoses Not on filedocumented in this encounter Additional Health Concerns Assessment Noted Time PHQ-9 Depression Total Score: 4 07/03/19 23 10:39 AM EST documented as of this encounter Care Teams Security Assurance Analyst Relationship Specialty Start Date End Date Marisa Livingston MD [address] [place] [phone] PCP - General Family Medicine 03/12/19 documented as of this encounter
--- OUTSIDE RECORDS SUMMARY | 2024-06-17 19:15 | XMS_ITS | Encounter Summary ---
Author Organization [employer] Address 75 [facility] [address] 7t [place] [address] Care Team Providers Care Computer Forensics Investigator Name Role Phone Marisa Livingston MD Primary Care Provider + Encounter Details Date Type Department Care Team ([facility] st Contact Info) Description 05/26/2024 4:00 PM EST Office Visit [facility] 230 [place] [address] Joann Sandoval MD 505 [place] [address] Acute severe exacerbation of asthma (Primary Dx) [...] [place]. Upon arrival to [facility], EMS given verbal report. Pt to be transported to [facility]. Pt to F/U as needed upon discharge. [...] Description 07/13/2024 3:30 PM EST Office Visit [facility] MEDICINE [address] [place] [address] Marisa Livingston MD [address] [place] [address] documented as of this encounter Visit Diagnoses [...] documented as of this encounter Care Teams Computer Forensics Investigator Relationship Specialty Start Date End Date Marisa Livingston MD [address] [place] [address] PCP - General Family Medicine 03/12/19 documented as of this encounter
--- OUTSIDE RECORDS SUMMARY | 2024-06-17 19:15 | XMS_ITS | Encounter Summary ---
Author Organization [email or web address] Address [address] [facility] [address] 7 [place] [address] Care Team Providers Care Business Objects Report Developer Name Role Phone Marisa Livingston MD Primary Care Provider + Encounter Details Date Type Department Care Team ([facility] Contact Info) Description 07/19/2022 Abstract [facility] ADULT DENTAL 230 [place] [address] Berlin Hagen, DMD 505 [place] [address] Social History Tobacco Use Types Packs/Day Years [...] 3:30 PM EST Office Visit [facility] MEDICINE 230 [place] [address] Marisa Livingston MD 230 [place] [address] documented as of this encounter Visit Diagnoses Not on filedocumented in this encounter Additional Health Concerns Assessment Noted Time PHQ-9 Depression Total Score: 4 07/03/19 23 10:39 AM EST documented as of this encounter Care Teams Business Objects Report Developer Relationship Specialty Start Date End Date Marisa Livingston MD [address] [place] [address] PCP - General Family Medicine 03/12/19 documented as of this encounter
--- OUTSIDE RECORDS SUMMARY | 2024-06-17 19:15 | XMS_ITS | Encounter Summary ---
Author Organization [employer] Address [address] [place] [address] [address] [place] [address] Care Team Providers Care Microwave Remote Sensing Scientist Name Role Phone Marisa Livingston MD Primary Care Provider + Encounter Details Date Type Department Care Team (Latest Contact Info) Description 03/26/2019 Abstract [facility] CONVERSIONS Dental, Provider, DDS Social [...] 07/13/2024 3:30 PM EST Office Visit [facility] MEDICINE 230 [place] [address] Marisa Livingston MD [address] [place] [address] documented as of this encounter Visit Diagnoses Not on filedocumented in this encounter Care Teams Microwave Remote Sensing Scientist Relationship Specialty Start Date End Date Marisa Livingston MD 230 [place] [address] PCP - General Family Medicine 03/12/19 documented as of this encounter
--- OUTSIDE RECORDS SUMMARY | 2024-06-17 19:15 | XMS_ITS | Encounter Summary ---
Author Organization [employer] Address [address] [facility] [address] 7t [place] [address] Care Team Providers Care Qualitative Researcher Name Role Phone Marisa Livingston MD Primary Care Provider + Encounter Details Date Type Department Care Team ([facility] st Contact Info) Description 06/03/2024 Orders Only [facility] ADULT DENTAL [address] [place], [place] [phone] Berlin Hagen, DMD [address] [place] [address] Social History Tobacco Use Types Packs/Day Years [...] PM EST Office Visit [facility] MEDICINE [address] [place] [address] Marisa Livingston MD [address] [place] [address] Scheduled Orders Name Type Priority Associated Diagnoses Orde r Schedule PERIODIC ORAL EVALUATION - ESTABLISHED PATIENT Dental Routine 1 Occurren alberto starting 06/03/2024 documented as of this encounter Visit Diagnoses Not on filedocumented in this encounter Additional Health Concerns Assessment Noted Time PHQ-9 Depression Total Score: 17 024 9:31 AM EST documented as of this encounter Care Teams Qualitative Researcher Relationship Specialty Start Date End Date Marisa Livingston MD [address] [place] [address] PCP - General Family Medicine 03/12/19 documented as of this encounter
--- OUTSIDE RECORDS SUMMARY | 2024-06-17 19:15 | XMS_ITS | Encounter Summary ---
Author Organization [employer] [facility] Address [address] [place] [address] [facility] [place] [address] Care Team Providers Care Plant Tour Guide Name Role Phone Marisa Livingston MD Primary Care Provider + Encounter Details Date Type Department Care Team (Latest Contact Info) Description 02/27/2022 Abstract [facility] CONVERSIONS Dental, Provider, DDS Social History Tobacco [...] Description 07/13/2024 3:30 PM EST Office Visit [facility] MEDICINE 230 [place] [address] Marisa Livingston MD 230 [place] [address] documented as of this encounter Visit Diagnoses Not on filedocumented in this encounter Care Teams Plant Tour Guide Relationship Specialty Start Date End Date Marisa Livingston MD [address] [place] [address] PCP - General Family Medicine 03/12/19 documented as of this encounter
--- OUTSIDE RECORDS SUMMARY | 2024-06-17 19:15 | XMS_ITS | Encounter Summary ---
Author Organization [employer] Address 75 [facility] 7 [place] [address] Care Team Providers Care Sisal Picker Name Role Phone Marisa Livingston MD Primary Care Provider + Reason for Visit * Reason Comments Med Refill Encounter Details Date Type Department Care Team ([facility] st Contact Info) Description 03/04/2024 Refill [facility] MEDICINE 230 [place] [address] aMrisa Livingston MD [address] [place] [address] Social History Tobacco Use Types Packs/Day Years [...] Description 07/13/2024 3:30 PM EST Office Visit [facility] MEDICINE [address] [place] [address] Marisa Livingston MD 230 [place] [address] documented as of this encounter Visit Diagnoses Not on filedocumented in this encounter Additional Health Concerns Assessment Noted Time PHQ-9 Depression Total Score: 17 024 9:31 AM EST documented as of this encounter Care Teams Sisal Picker Relationship Specialty Start Date End Date Marisa Livingston MD [address] [place] [address] PCP - General Family Medicine 03/12/19 documented as of this encounter
--- OUTSIDE RECORDS SUMMARY | 2024-06-17 19:15 | XMS_ITS | Encounter Summary ---
Author Organization [employer] Address [address] [facility] [address] 7t [place] [address] Care Team Providers Care Mems Integration Engineer Name Role Phone Marisa Livingston MD Primary Care Provider + Encounter Details Date Type Department Care Team (Late st Contact Info) Description 05/26/2024 Orders Only [facility] External Provider, [facility] Social History Tobacco Use Types Packs/Day Years [...] Description 07/13/2024 3:30 PM EST Office Visit [facility] MEDICINE 230 [place], [place] [phone] Marisa Livingston MD 230 [place] [address] documented as of this encounter Procedures Procedure [...] PM EST) Influenza A PCR POSITIVE(A) Negative [facility] Influenza B PCR NEGATIVE Negative [facility] Resp Syncy Virus RNA Qual PCR NEGATIVE Negative [facility] SARS COV2 PCR NEGATIVE Negative [facility] Comment:All test results mus t [...] use by authorized laboratories.Testing performed on the F.8 Interactive GeneXpert utilizingreal-time RT-PCR.All SARS CoV2 and positive influenza A/B results arereported to [facility]. 05/26/2024 5:39 PM EST 05/26/2024 5:46 PM EST Generic External Data Provider LAB MICROBIOLOGY - GENERAL ORDERABLES Final Result Performing Organization Address [facility] de Phone Number [facility] [address] [place] [phone] * Strep A Nucleic Acid (05/26/2024 5:39 PM EST) [employer]NOW SERIAL# [id number] [facility] Strep A Nucleic Acid Negative Negative [facility] Comment:All test results mus t [...] GENERAL ORDERABLES Final Result Performing Organization Address [facility] de Phone Number [facility] [address] [place] [phone] * XR Chest 2 Views (05/26/2024 4:25 PM EST) Anatomical Region Laterality Modality Chest Radiographic Angelita ging 05/26/2024 4:25 PM EST Narrative 05/26/2024 4:26 PM EST ? [facility] [facility] ?[address] ?[place] [address] ?XRay Report ? Signed ? Patient: Smith Dino,Cleo J ?MR#: ?? [id number] ? : 1990 ?Acct:[id number] ? Age/Sex: 33 / F ?ADM Date: 05/26/24 ? Loc: HO.ED ? Attending Dr: ? Ordering Physician: Ilene Sethi ?? Date of Service: 05/26/24 ?? Procedure(s): XR chest 2V ?? Accession Number(s): [id number] ? cc: [facility]; Ilene Sethi ? CLINICAL HISTORY: sob ? [...] DD/ 1625 ? TD/TT: 05/26/24 1625 ? Arterial Embalmer: ? 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 Donjackie, Image - 05/26/[address] [address] XRay Report Signed Patient: Cleo Rock JMR#: [id number] : 1990Acct:[id number] Age/Sex: 33 / FADM Date: 05/26/24 Loc: HO.ED Attending Dr: Ordering Physician: Ilene Sethi Date of Service: 05/26/24 Procedure(s): XR chest 2V Accession Number(s): [id number] cc: [facility]; Ilene Sethi CLINICAL HISTORY: sob Chest Radiographs, [...] 05/26/24 1626 DD/ 1625 TD/TT: 05/26/24 1625 Arterial Embalmer: [facility] External Provider IMG XR PROCEDURES Edited Result - Final documented in this encounter Visit Diagnoses Not on filedocumented in this encounter Additional Health Concerns Assessment Noted Time PHQ-9 Depression Total Score: 17 024 9:31 AM EST documented as of this encounter Care Teams Mems Integration Engineer Relationship Specialty Start Date End Date Marisa Livingston MD [address] [place] [address] PCP - General Family Medicine 03/12/19 documented as of this encounter
--- OUTSIDE RECORDS SUMMARY | 2024-06-17 19:15 | XMS_ITS | Clinical Summary ---
Author Organization [email or web address] Address [address] [facility] [address] [place] [address] Care Team Providers Care Machine Cementer Name Role Phone Marisa Livingston MD Primary [...] hours. Active Nebulizers (Vios Aerosol Delivery System) [facility] [place] DIRECTED. 11/09/19 23 Active Fasenra Pen [...] 24 Active ergocalciferol (Vitamin D2) 1.25 MG (38657 UT) capsule TAKE 1 CAPSULE(1.25 MG) BY MOUTH 1 TIME EVERY WEEK 12 capsule 1 06/08/19 25 Active ergocalciferol (Vitamin D2) 1.25 MG (60278 UT) capsule TAKE 1 CAPSULE(1.25 MG) BY [...] exercise, life style modifications, diet, referral to hiv prevention specialist. Discussed re lower calorie intake, increase dietary fiber Assessment & Plan (11/22/2022 1:34 PM EDT): Discussed re weight reduction options including exercise, life style modifications, diet, referral to hiv prevention specialist. Discussed re lower calorie intake, increase [...] -Uncontrolled. -Restart Advair Diskus -Follow up with representative personal service for immunotherapy. -Counseled on protocol for FMLA [...] gave today NBZ machine written prescription to [facility] nurse staff -Alarm signs and sx in [...] anti-muscarinic inhaler as Trelegy -Referred today to government professor for uncontrolled asthma Assessment & Plan (07/03/2022 [...] exercise, life style modifications, diet, referral to hiv prevention specialist. Discussed re lower calorie intake, increase [...] at home PAP smear: Overdue, refer to rn obgyn will need further eval for DUB Adult [...] Description 06/17/2024 3:20 PM EST Office Visit [facility] [address] [place] [phone] Jkai Cruz MD Dyspnea on exertion (Primary Dx); Moderate persistent asthma without complication 06/17/2024 Telephone [facility] [address] [place] [phone] Jaki Cruz MD 06/17/2024 Telephone [facility] [address] [place] [address] Bettie Garay RN ED EXPECT 06/17/2024 Orders Only [facility] [address] [place] [address] Jaki Cruz MD Chronic anemia (Primary Dx) 06/17/2024 Telephone [facility] [address] [address] Amirah Pugh, [place] Nurse Triage (SOB) 06/10/[address] [address] Marisa Livingston MD Nurse Triage 06/07/[address] [address] Marisa Livingston MD 06/04/[address] [address] Marisa Livingston MD Nurse Triage 06/03/2024 Orders Only [facility] [address], [place] [phone] [place] Hagen, BERNIE 05/27/[address] [address] Marisa Livingston MD 05/26/2024 4:00 PM EST Office Visit [facility] [address] [address] Joann Sandoval MD Acute severe exacerbation of asthma (Primary Dx) 05/26/2024 Orders Only [facility] External Provider, [facility] 05/26/[address] [address] Marisa Livingston MD Nurse Triage 05/20/[address] [phone] Marisa Livingston MD July recall 03/26/2024 3:00 PM EST Office Visit [facility] [address] [place] [address] Julian Quevedo Dental calculus (Primary Dx) from [...] 07/13/2024 3:30 PM EST Office Visit [facility] MEDIC[facility] [address] [place], [place] [phone] Marisa Livingston MD [address] [place], [place] [phone] Health Maintenance Due Date Last Done Comments [...] High Sensitivity (06/17/2024 3:32 PM EST) Pathologist [facility] D Dimer High Sensitivity 232 NG/ML [facility] Comment:D-DIMER HS REFERENCE RANGENote: Our [...] Cruz MD LAB BLOOD ORDERABLES Final Result [facility] [address] [place] [address] [phone] * (ABNORMAL) CBC auto differential (06/17/2024 3:32 PM EST) White Blood Count 6.9 4.8 - 10.8 X10*3/uL [facility] Red Blood Count 4.52 4.20 - 5.50 X10*6/uL [facility] Hemoglobin 8.8(L) 12.0 - 16.0 g/dl [facility] Hematocrit 30.7(L) 37.0 - 47.0 % [facility] Mean Corpuscular Volume 67.9(L) 80.0 - 98.0 fL [facility] Mean Corpuscular Hemoglobin 19.5(L) 27.0 - 33.0 pg [facility] Mean Corpuscular HGB Conc 28.7(L) 31.0 - 35.0 g/dl [facility] Red Cell Distribution Width 19.4(H) 11.0 - 16.0 % [facility] Platelet Count 346 160 - 400 X10*3/uL [facility] Mean Platelet Volume 9.4 9.4 - 12.3 fL [facility] Neutrophils Percent Auto 60.7 45 - 73 % [facility] Imm Gran Pct Auto 0.3 0.0 - 0.4 % [facility] Lymphocytes Percent Auto 27.4 20 - 40 % [facility] Monocytes Percent Auto 6.4 2 - 11 % [facility] Eosinophils Percent Auto 4.8(H) 0 - 4 % [facility] Basophils Percent Auto 0.4 0 - 2 % [facility] NRBC Pct Auto 0.0 0.0 - 0.2 /100WBC [facility] Neutrophils Absolute Auto 4.2 2.0 - 8.3 x10*3/uL [facility] Imm Gran Abs Auto 0.02 0.00 - 0.03 X10*3/uL [facility] Lymphocytes Absolute Auto 1.9 1.2 - 4.9 X10*3/uL [facility] Monocytes Absolute Auto 0.4 0.1 - 1.2 X10*3/uL [facility] Eosinophils Absolute Auto 0.3 0.0 - 0.4 X10*3/uL [facility] Basophils Absolute Auto 0.0 0.0 - 0.2 X10*3/uL [facility] NRBC Abs Auto 0.000 0.0 - 0.012 X10*3/uL [facility] Blood Venous blood specimen / Unknown 06/17/2024 3:32 PM EST 06/17/2024 3:59 PM EST Jaki Cruz MD LAB BLOOD ORDERABLES Final Result Performing Organization Address [facility]/ZIP Co de Phone Number [facility] [address] [place] [phone] * C-reactive Protein (06/17/2024 3:32 PM EST) C Reactive Protein <0.10 < or = 0.50 mg/dL [facility] Blood Venous blood specimen / Unknown 06/17/2024 3:32 PM EST 06/17/2024 3:59 PM EST Jaki Cruz MD LAB BLOOD ORDERABLES Final Result Performing Organization Address City/[facility]/ZIP Co de Phone Number [facility] [address] [place] [phone] * XR Chest 2 Views (06/17/2024 3:00 PM EST) Only the most recent of2 resultswithin the time period is included. Anatomical Region Laterality Modality Chest Radiographic Angelita ging 06/17/2024 3:00 PM EST Narrative 06/17/2024 3:55 PM EST ?[facility] ?[address] ?[place] [address] ?XRay Report ? Signed ? Patient: Smith Dino,Cleo J ?MR#: ?? [id number] ? : 1990 ?Acct:[id number] ? Age/Sex: 33 / F ?ADM Date: 06/17/24 ? Loc: HO.HHCX ? Attending Dr: Jaki Cruz MD ? Ordering Physician: Jaki Cruz MD ?? Date of Service: 06/17/24 ?? Procedure(s): XR chest 2V ?? Accession Number(s): [id number] ? cc: Jaki Cruz MD ? EXAMINATION: [...] cardiopulmonary abnormality. ? Electronically signed by: ??Melchor Farai MD ??06/17/2024 03:52 PM EST ? Dictated By: ?Melchor Faria MD ? Signed By: ?<Electronically signed by Melchor Faria MD in OV> ?06/17/24 1552 ? DD/ 1500 ? TD/TT: 06/17/24 1520 ? Payroll Professional: ? 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 Stephania Roberts - 06/17/[address] [address] XRay Report Signed Patient: Luis DinoCleo R#: [id number] : 1990Acct:[id number] Age/Sex: 33 / FADM Date: 06/17/24 Loc: HO.HHCX Attending Dr: Jaki Cruz MD Ordering Physician: Jaki Cruz MD Date of Service: 06/17/24 Procedure(s): XR chest 2V Accession Number(s): [id number] cc: Jaki Cruz MD EXAMINATION: XR CHEST [...] 06/17/24 1552 DD/ 1500 TD/TT: 06/17/24 1520 Payroll Professional: Jaki Cruz MD IMG XR PROCEDURES Final Re sult * Influenza B (ID NOW Rapid Molecular) (06/17/2024 2:36 PM EST) Influenza B Negative Negative, Indeterminate [facility] Swab 06/17/2024 2:36 PM EST Jaki Cruz MD POINT OF CARE TEST ENTER/E DIT ORDERABLES Final Result Performing Organization Address [facility] Co de Phone Number [facility] [address] [place] [phone] * Influenza A (ID NOW Rapid Molecular) (06/17/2024 2:36 PM EST) Influenza A Negative Negative, Indeterminate [facility] Swab 06/17/2024 2:36 PM EST Jaki Cruz MD POINT OF CARE TEST ENTER/E DIT ORDERABLES Final Result Performing Organization Address [facility] Co de Phone Number [facility] [address] [place] [phone] * POCT rapid strep A manually resulted (06/17/2024 2:36 PM EST) [facility] Rapid Strep A Screen Negative Negative, None Detected Swab 06/17/2024 2:36 PM EST Jaki Cruz MD POINT OF CARE TEST ENTER/E DIT ORDERABLES Final Result * POCT Rapid Covid-19 BinaxNOW (06/17/2024 2:09 PM EST) [facility] Rapid COVID Ag Negative Nares 06/17/2024 2:09 PM EST Jaki Cruz MD POINT OF CARE TEST ENTER/E DIT ORDERABLES Final Result * Strep A Nucleic Acid (05/26/2024 5:39 PM EST) [facility] IDNOW SERIAL# [id number] [facility] Strep A Nucleic Acid Negative Negative [facility] Comment:All test results mus t [...] LAB MICROBIOLOGY - GENERAL ORDERABLES Final Result [facility] [address] [place] [address] [phone] * (ABNORMAL) SARS-CoV-2 RNA, Influenza A/B, and RSV RNA, Ql NAAT (05/26/2024 5:39 PM EST) [facility] Influenza A PCR POSITIVE(A) Negative [facility] Influenza B PCR NEGATIVE Negative [facility] Resp Syncy Virus RNA Qual PCR NEGATIVE Negative [facility] SARS COV2 PCR NEGATIVE Negative [facility] Comment:All test results mus t [...] use by authorized laboratories.Testing performed on the SoundTag GeneXpert utilizingreal-time RT-PCR.All SARS CoV2 and positive influenza A/B results arereported to [facility]. 05/26/2024 5:39 PM EST 05/26/2024 5:46 PM EST us Generic External Data Provider LAB MICROBIOLOGY - GENERAL ORDERABLES Final Result [facility] [address] [place] [phone] [phone] * Pap Smear (08/05/2023 3:15 PM EDT) 08/05/2023 3:15 PM EDT 08/07/2023 1:00 PM EDT Narrative [facility] - 08/18/2023 1:17 PM EDT ----- ------- Name: lCeo Rock ? Age/Sex: 32/F ? : 1990 Unit#: [id number] ?? Attend Dr: NaomiAmaris MARA ?Re08/05/23 ?Status: DEP REF ? Location: HO.LNP ?Disch: ? ----- ------- SPEC : [id number] ? RECD: 08/07/23-1300 ? STATUS: ??SOUT ? REQ NUM: [id number] ? MEAGAN: 08/05/23-1515 ? SUBM DR: NaomiAmaris MARA ? ENTERED: ??08/07/23-5938 ?SP TYPE: Pap Smr ?OTHR DR: Marisa [...] 66, 68) ?? HPV testing performed by [facility], [place], [place]. ??See reference laboratory ?? portion of the EMR for entire report. ?Clinical Information LMP: 07/17/23 Previous PAP test: 09/17/17, WNL ? Material Received ?? ThinPrep-Cervical Copies To: ?? Marisa Livingston MD ?? [address] [facility] ?? [place] [id number] ? Amaris Salgado CNM ?? [address] [place] [address] Dr. Oliver [facility] ?? [place] [address] ?? [phone] ----- ------- Signed (signature on file) IDANIA Hutchinson (ASCP) 08/18/23 1317 ? ----- ------- ? END OF REPORT ? us Generic External Data Provider LAB CYTOLOGY GILBERT UGARTE Final Result Performing Organization Address City/State/[facility] Co de Phone Number [facility] [address] [place] [phone] [phone] * HIV Ab/Ag (IRAJ MARIA) (12/09/2022 1:30 PM EDT) HIV AB/AG Nonreactive Nonreactive [facility] Comment:HIV-1 p24 Ag and/or HIV-1/HIV-2 Ab not detected.A test result that is nonreactive does not exclude thepossibility of exposure to or infection with HIV-1 and/orHIV-2. Nonreactive results in this assay for individualswith prior exposure to HIV-1 and/or HIV-2 may be due toantigen and antibody levels that are below the limit ofdetection of this assay.The [place] Drug Enforcement Administration Agent HIV Ag/Ab Combo assay result andsupplemental assay results should be interpreted inconjunction with the patient's clinical presentation,history and other laboratory results. If the results areinconsistent with clinical evidence, additional testing issuggested to confirm the result. 12/09/2022 1:30 PM EDT 12/09/2022 4:12 PM EDT us Marisa Livingston MD LAB BLOOD ORDERABLES Fin al Result Performing Organization Address [facility] Co de Phone Number [facility] [address] [place] [phone] * Lipid Panel, Standard (12/09/2022 1:30 PM EDT) Triglycerides 56 mg/dL [facility] Comment:Desirable Triglyceri de: less than 150 mg/dLBorderline High Triglyceride 150-199 mg/dLHigh Triglyceride: 200-499 mg/dLVery High Triglyceride: greater than or equal to 5OO mg/dL Cholesterol 114 mg/dL [facility] Comment:Desirable Cholestero l: less than 200 mg/dLBorderline High Cholesterol: 200-239 mg/dLHigh Cholesterol: greater than 239 mg/dL LDL Cholesterol Calculated 65 mg/dl [facility] Comment:Desirable LDL: less than 100 mg/dLNear Optimal/Above Optimal LDL: 110- 129 mg/dLBorderline High LDL: 130-159 mg/dLHigh LDL: 160-189 mg/dLVery High LDL: greater than or equal to 190 mg/dL HDL Cholesterol 38 mg/dL [facility] Comment:Desirable HDL: great er than 40 mg/dL Note: This HDL assay may give artificially low results in patients with liver disease. 12/09/2022 1:30 PM EDT 12/09/2022 4:12 PM EDT Marisa Livingston MD LAB BLOOD ORDERABLES Fin al Result [facility] [address] [place] [phone] from Last 3 Months or Most Recently Relevant to Health Maintenance Insurance [facility] AD[facility] Care Teams Machine Cementer Relationship Specialty Start Date End Date Marisa Livingston MD [address] [place] [phone] PCP - General Family Medicine 03/12/19
--- OUTSIDE RECORDS SUMMARY | 2024-06-17 19:15 | XMS_ITS | Encounter Summary ---
Author Organization [employer] Address [address] [place] [address] [place], [place] [address] Care Team Providers Care Enterprise Account Executive Name Role Phone Marisa Livingston MD Primary Care Provider + Reason for Referral * Consultation (Routine) - Pending Review Specialty Diagnoses / Procedures Referred By Contdaniela t Referred To Contact Pulmonary Disease Diagnoses Dyspnea on exertion Moderate persistent asthma without complication Jaki Cruz MD [address] [place] [phone] Phone: tel: fax: Referral ID Status Reason Start Date Expiration Date Visits Requested Visits Authorized [id number] Pending Review Specialty Services Required 06/17/2024 06/17/2025 1 1 Reason for Visit * Reason Comments Shortness of Breath Encounter Details Date Type Department Care Team (Late st Contact Info) Description 06/17/2024 3:20 PM EST Office Visit [facility] [address] [place] [address] [phone] Jaki Cruz MD [address] [place] [phone] Dyspnea on exertion (Primary Dx); Moderate persistent [...] Center on 05/26/24 and was directed to [facility], tested positive for Flu A and [...] chest pain. She notes had seen a technology sales consultant, but cannot remember who she was seeing. [...] Description 07/13/2024 3:30 PM EST Office Visit [facility] [address] [place] [phone] Marisa Livingston MD [address] [place] [address] Scheduled Orders Name Type Priority Associated Diagnoses [...] Protein <0.10 < or = 0.50 mg/dL [facility] Blood Venous blood specimen / Unknown 06/17/2024 3:32 PM EST 06/17/2024 3:59 PM EST us Jaki Cruz MD LAB BLOOD ORDERABLES Final Result [facility] [address] [place] [phone] * (ABNORMAL) CBC auto differential (06/17/2024 3:32 PM EST) White Blood Count 6.9 4.8 - 10.8 X10*3/uL [facility] Red Blood Count 4.52 4.20 - 5.50 X10*6/uL [facility] Hemoglobin 8.8(L) 12.0 - 16.0 g/dl [facility] Hematocrit 30.7(L) 37.0 - 47.0 % [facility] Mean Corpuscular Volume 67.9(L) 80.0 - 98.0 fL [facility] Mean Corpuscular Hemoglobin 19.5(L) 27.0 - 33.0 pg [facility] Mean Corpuscular HGB Conc 28.7(L) 31.0 - 35.0 g/dl [facility] Red Cell Distribution Width 19.4(H) 11.0 - 16.0 % [facility] Platelet Count 346 160 - 400 X10*3/uL [facility] Mean Platelet Volume 9.4 9.4 - 12.3 fL [facility] Neutrophils Percent Auto 60.7 45 - 73 % [facility] Imm Gran Pct Auto 0.3 0.0 - 0.4 % [facility] Lymphocytes Percent Auto 27.4 20 - 40 % [facility] Monocytes Percent Auto 6.4 2 - 11 % [facility] Eosinophils Percent Auto 4.8(H) 0 - 4 % [facility] Basophils Percent Auto 0.4 0 - 2 % [facility] NRBC Pct Auto 0.0 0.0 - 0.2 /100WBC [facility] Neutrophils Absolute Auto 4.2 2.0 - 8.3 x10*3/uL [facility] Imm Gran Abs Auto 0.02 0.00 - 0.03 X10*3/uL [facility] Lymphocytes Absolute Auto 1.9 1.2 - 4.9 X10*3/uL [facility] Monocytes Absolute Auto 0.4 0.1 - 1.2 X10*3/uL [facility] Eosinophils Absolute Auto 0.3 0.0 - 0.4 X10*3/uL [facility] Basophils Absolute Auto 0.0 0.0 - 0.2 X10*3/uL [facility] NRBC Abs Auto 0.000 0.0 - 0.012 X10*3/uL [facility] Blood Venous blood specimen / Unknown 06/17/2024 3:32 PM EST 06/17/2024 3:59 PM EST us Jaki Cruz MD LAB BLOOD ORDERABLES Final Result Performing Organization Address [facility] de Phone Number [facility] [address] [place] [phone] * D Dimer High Sensitivity (06/17/2024 3:32 PM EST) D Dimer High Sensitivity 232 NG/ML [facility] Comment:D-DIMER HS REFERENCE RANGENote: Our [...] BLOOD ORDERABLES Final Result Performing Organization Address [facility] de Phone Number [facility] [address] [place] [phone] * XR Chest 2 Views (06/17/2024 3:00 PM EST) Anatomical Region Laterality Modality Chest Radiographic Angelita ging 06/17/2024 3:00 PM EST Narrative 06/17/2024 3:55 PM EST ?[facility] ?[address] ?[place] [address] ?XRay Report ? Signed ? Patient: Luis Sun,Cleo J ?MR#: ?? [id number] ? : 1990 ?Acct:[id number] ? Age/Sex: 33 / F ?ADM Date: 01/30/25 ? Loc: HO.HHCX ? Attending Dr: Jaki Cruz MD ? Ordering Physician: Jaki Cruz MD ?? Date of Service: 06/17/24 ?? Procedure(s): XR chest 2V ?? Accession Number(s): [id number] ? cc: Jaki Cruz MD ? EXAMINATION: [...] DD/ 1500 ? TD/TT: 06/17/24 1520 ? Costume Technician: ? 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 Donsangitajanellelliottter, Image - 06/17/[address] [address] XRay Report Signed Patient: Cleo Rock JMR#: [id number] : 1990Acct:[id number] Age/Sex: 33 / FADM Date: 06/17/24 Loc: HO.HHCX Attending Dr: Jaki Cruz MD Ordering Physician: Jaki Cruz MD Date of Service: 06/17/24 Procedure(s): XR chest 2V Accession Number(s): [id number] cc: Jaki Cruz MD EXAMINATION: XR CHEST [...] 06/17/24 1552 DD/ 1500 TD/TT: 06/17/24 1520 Costume Technician: Jaki Cruz MD IMG XR PROCEDURES Final Re sult * POCT rapid strep A manually resulted (06/17/2024 2:36 PM EST) [facility] Rapid Strep A Screen Negative Negative, None Detected Swab 06/17/2024 2:36 PM EST Jaki Cruz MD POINT OF CARE TEST ENTER/E DIT ORDERABLES Final Result * Influenza B (ID NOW Rapid Molecular) (06/17/2024 2:36 PM EST) [facility] Influenza B Negative Negative, Indeterminate [facility] Swab 06/17/2024 2:36 PM EST Jaki Cruz MD POINT OF CARE TEST ENTER/E DIT ORDERABLES Final Result Performing Organization Address City/[facility]/ZIP Co de Phone Number [facility] [address] [place] [phone] * Influenza A (ID NOW Rapid Molecular) (06/17/2024 2:36 PM EST) [facility] Influenza A Negative Negative, Indeterminate [facility] Swab 06/17/2024 2:36 PM EST Jaki Cruz MD POINT OF CARE TEST ENTER/E DIT ORDERABLES Final Result Performing Organization Address [facility] Co de Phone Number [facility] [address] [place] [phone] * POCT Rapid Covid-19 BinaxNOW (06/17/2024 2:09 PM EST) [facility] Rapid COVID Ag Negative Sage 06/17/2024 2:09 PM EST Jaki Cruz MD POINT OF CARE TEST ENTER/E DIT ORDERABLES Final Result documented in this encounter Visit Diagnoses Diagnosis Dyspnea on exertion- Primary Other dyspnea and respiratory abnormality Moderate persistent asthma without complication documented in this encounter Additional Health Concerns Assessment Noted Time PHQ-9 Depression Total Score: 17 024 9:31 AM EST documented as of this encounter Care Teams Enterprise Account Executive Relationship Specialty Start Date End Date Marisa [place] MD [address] [place] [address] PCP - General Family Medicine 03/12/19 documented as of this encounter
--- OUTSIDE RECORDS SUMMARY | 2024-06-17 19:15 | XMS_ITS | Encounter Summary ---
Author Organization [employer] Address [address] [place] [address] [address] [address] Care Team Providers Care Nurse First Assist Name Role Phone Marisa Livingston MD Primary Care Provider + Encounter Details Date Type Department Care Team (Late st Contact Info) Description 06/27/2022 Abstract [facility] [address] [place] [address] Jeramie Treadwell DDS [address] [place] [address] Social History Tobacco Use Types Packs/Day Years [...] Description 07/13/2024 3:30 PM EST Office Visit [facility] [address] [place] [address] Marisa Livingston MD [address] [place] [address] documented as of this encounter Visit Diagnoses Not on filedocumented in this encounter Care Teams Nurse First Assist Relationship Specialty Start Date End Date Marisa Livingston MD [address] [place] [phone] PCP - General Family Medicine 03/12/19 documented as of this encounter
--- OUTSIDE RECORDS SUMMARY | 2024-06-17 19:15 | XMS_ITS | Encounter Summary ---
Author Organization [employer] Address [address] [facility] 7 [place] [address] Care Team Providers Care Trauma Manager Name Role Phone Marisa Livingston MD Primary Care Provider + Reason for Visit * Reason Comments Med Refill Encounter Details Date Type Department Care Team ([facility] st Contact Info) Description 05/27/2024 Refill [facility] MED[facility] [address] [place] [address] Marisa Livingston MD [address] [place] [address] Social History Tobacco Use Types Packs/Day Years [...] Description 07/13/2024 3:30 PM EST Office Visit [facility] [address] [place] [phone] Marisa Livingston MD [address] [place] [address] documented as of this encounter Visit Diagnoses Not on filedocumented in this encounter Additional Health Concerns Assessment Noted Time PHQ-9 Depression Total Score: 17 024 9:31 AM EST documented as of this encounter Care Teams Trauma Manager Relationship Specialty Start Date End Date Marisa Livingston MD [address] [place] [phone] PCP - General Family Medicine 03/12/19 documented as of this encounter
[2024-06-25 22:44] LABS: Pertussis Testing 2 IU/mL
== END 2024-06-17 15:30 | disposition home or self-care (01) ==
LOC: HO.HHCL 15:29
PROVIDERS: Visit Provider Family Medicine
DX: R06.09 Other forms of dyspnea (principal)
CPT/HCPCS: 36415; 85025; 85379; 86140; 86615

== ENCOUNTER 2024-06-18 09:56 | Emergency (ER) | payer MEDICAID, SELFPAY ==
--- NOTE | ~2024-06-18 | XR_ITS ---
EXAMINATION: XR CHEST CLINICAL INFORMATION: Cough COMPARISON: June 17, 2024 TECHNIQUE: 2 views of the chest were obtained. FINDINGS: No consolidation, pleural effusion or pneumothorax. No hyperinflation. Cardiomediastinal silhouette is normal. Osseous structures are intact. XR/XR chest 2V IMPRESSION: No acute airspace disease. Electronically signed by: Fredy Ruiz MD 06/18/2024 11:16 AM [facility]
--- NOTE | ~2024-06-18 | CT_ITS ---
EXAMINATION: CT ANGIOGRAM CHEST CLINICAL INFORMATION: Shortness of breath. Cough. COMPARISON: No prior CT. Chest radiograph dated earlier same day. TECHNIQUE: Multiple axial images were obtained through the chest after the administration of 50 mL of Omnipaque 350 intravenous contrast. Extensive vascular post-processing including two-dimensional and three-dimensional reformatted images were created and reviewed on an independent workstation. This CT examination was performed using dose optimization techniques as appropriate, variously including the following: *Automated exposure control *Adjustment of mA and/or kV according to patient size (this includes techniques or standardized protocols for targeted exams where dose is matched to indication/reason for exam; i.e. extremities or head) *Use of iterative reconstruction technique FINDINGS: LUNGS: -Mild mosaic attenuation of the lungs, likely secondary to partial expiratory state. There are low lung volumes. -Mild gravity dependent changes. -No consolidations, abnormal opacities, more small airway abnormalities. -No pneumothorax. -Calcified granuloma medial left lower lobe. -No suspicious pulmonary nodule. PLEURA: There is no pleural effusion. No pleural mass or thickening. MEDIASTINUM: -No lymphadenopathy, hematoma, or mass. -No pericardial effusion. -Mild to moderate cardiac enlargement, with predominantly left ventricular and right ventricular enlargement. -Normal esophagus. -Normal central airways. -Normal thyroid. VASCULAR: -Study quality is diagnostic. -There is no pulmonary embolus identified. -Main pulmonary artery is enlarged suggesting pulmonary arterial hypertension. -No right heart strain. -No significant contrast reflux into the IVC. -Aorta is normal without acute aortic syndrome. AXILLA/CHEST WALL: No lymphadenopathy. UPPER ABDOMEN: Numerous calcified gallstones within an otherwise normal-appearing gallbladder. Remainder of the imaged upper abdominal structures appear normal. OSSEOUS STRUCTURES: Unremarkable. CT/CT angio chest PE protocol IMPRESSION: 1. No evidence of pulmonary embolus or acute aortic syndrome. 2. Wjfn-sy-wktxrves cardiac enlargement with predominantly biventricular dilatation. 3. Enlarged main pulmonary artery suggesting pulmonary arterial hypertension. 4. Mild mosaic attenuation of the lung parenchyma, most likely secondary to partial expiratory phase. No focal pneumonia or abnormal opacities otherwise. No effusions. 5. Cholelithiasis. Electronically signed by: Diego Montana MD 06/18/2024 04:27 PM [facility]
[2024-06-18 10:24] VITALS: BP 105/74; PULSE 92; RESP 18; TEMP 36.9; O2SAT 100; BMI 32.2
--- NOTE | 2024-06-18 10:31 | ED_ITS ---
HPI - General Adult General Chief complaint: Dyspnea Stated complaint: SOB Time Seen by Provider: 06/18/24 12:32 Source: patient Mode of arrival: ambulatory Limitations: no limitations History of Present Illness ED Provider: CARO Rouse HPI narrative: 33-year-old female history of anemia, asthma, environmental allergies presenting to the emergency department with shortness of breath ongoing for the past few weeks. She reports that initially she thought she had viral illness however she is very short of breath both at rest and with exertion. She feels like when she is talking she is unable to breathe. She tells me otherwise she is feeling fine she is not having a cough or chest pain or fevers, chills, nausea, vomiting, abdominal pain, headache, vision changes, dizziness or weakness. No known sick contacts. No urinary changes Was sent here by the [facility] after she had a positive D-dimer. Related Data Home Medications ?Medication ?Instructions ?Recorded ?Confirmed oxcarbazepine 150 mg tablet 150 mg PO BID 01/09/23 prednisone 50 mg tablet 50 mg PO DAILY 01/09/23 sumatriptan succinate 100 mg tablet 0 mg PO DAILY 01/09/23 trazodone 50 mg tablet 50 mg PO DAILY PRN insomnia 01/09/23 aripiprazole 5 mg tablet 5 mg PO DAILY 08/05/23 08/05/23 bupropion HCl 150 mg 24 hr tablet, 150 mg PO DAILY 08/05/23 08/05/23 extended release Previous Rx's ?Medication ?Instructions ?Recorded albuterol sulfate 90 mcg/actuation 2 puff inhalation Q4-6H PRN 03/23/22 aerosol inhaler shortness of breath or wheezing #8.5 grams benzonatate 100 mg capsule 100 mg PO TID PRN cough #12 caps 03/23/22 fluticasone propionate 230 2 puff inhalation BID 30 days #12 02/12/23 mcg-salmeterol 21 mcg/actuation grams HFA inhaler (Advair HFA) benralizumab 30 mg/mL subcutaneous 30 mg subcut Q8W 56 days #1 mL 08/15/23 syringe benzonatate 100 mg capsule 100 mg PO TID PRN cough #20 caps 05/26/24 prednisone 20 mg tablet 40 mg (2 x 20 mg) PO DAILY #10 tabs 05/26/24 doxycycline hyclate 100 mg capsule 100 mg PO BID 10 days #20 caps 06/18/24 prednisone 20 mg tablet 40 mg (2 x 20 mg) PO DAILY 5 days 06/18/24 #10 tabs Allergies Allergy/AdvReac Type Severity Reaction Status Date / Time latex Allergy Rash Verified 06/18/24 10:29 Review of Systems 2 Review of Systems: Yes all other systems are reviewed and are negative [facility] Past Medical History Attestation statement: The following information was validated with the patient. Source: old records reviewed and nursing notes reviewed Medical History Asthma Social History Social History Household Members: Children Housing: House Alcohol intake: never Patient Tobacco Use Status: Former Tobacco user Advance Directives: No Advance Directives Information Provided: No Physical Exam ED Vital Signs: Vital Signs - 24 hr 06/18/24 10:24 06/18/24 13:17 Temperature 98.4 F 97.1 F Pulse Rate 92 84 Respiratory Rate 18 16 Blood Pressure 105/74 149/81 H Pulse Oximetry 100 100 Oxygen Delivery Method Room Air Room Air BMI result Body Mass Index 32.2 Vital signs stable Appearance: Alert.? Oriented X3.? No acute distress.? Head: Normocephalic, atraumatic, no step-offs or deformities Eyes: Pupils equal, round and reactive to light.? ENT: Pharynx normal.? Neck: Normal inspection.? Neck supple.? CVS: Normal heart rate and rhythm.? Pulses normal.? Respiratory: No respiratory distress.? Breath sounds normal.? Abdomen: Soft and nontender.? Skin: Skin warm and dry.? Normal skin color.? Normal skin turgor.? Extremities: No lower extremity edema.? No calf ttp. 5/5 strength to bilateral upper and lower extremities Neuro: Oriented X 3.? No motor deficit.? No sensory deficit. CN 2-12 intact Course Course Course Narrative: Patient complains of shortness of breath for 2 days, was seen at [facility] yesterday and they did a D-dimer which was elevated, was sent here for further testing Patient in no distress Labs EKG ordered This rapid medical exam done in triage pending full exam evaluation and dispo by ER provider Reevaluation(s) Reevaluation #1: CBC unremarkable. Chemistry unremarkable. Trop negative, ekg non ischemic. BNP normal. Flu/ covid/ rsv Chest CTA no evidence of PT or acute aortic syndrom. Mild to moderate cardiac enlargment. W/ predominatly biventricular dilation. Enlarged main pulmonary artery suggesting pulmonayarterial hypertension. Mild mosaic attenuation of the lung parenchyma. ? expiratory phase. No effusions. Cholelithiasis. Patient will be dc home w/ atbx and steroids will treat for possible bronchitis. Educated patient on diagnosis and treatment plan, answered all question, patient verbalizes understanding. At this time patient will be discharged home, advised to return with new or worsening symptoms. Educated on worrisome signs and symptoms and when to return. At this time I feel comfortable discharge home. Time: 18:13 Medications Administered Discontinued Medications Generic Name Dose Route Start Last Admin Trade Name Freq PRN Reason Stop Dose Admin Iohexol 65 ml 06/18/24 15:45 06/18/24 15:46 Iohexol 350 Mg/Ml 100 Ml Infus..Btl IV 06/18/24 15:46 65 ml ONCE ONE Administration Medical Decision Making Medical Decision Making [facility] Narrative: 1252 33 year old female present w/ shortness of breath X 2-3weeks not improving PE benign hx and pe concerning for bronchitits vs prolongued viral illness. Unlikely acs, pe , dissection. No signs of acute respiratory distress Plan- labs, cxr, viral test Differential Diagnosis Differential Diagnoses: The differential diagnosis associated with the presentation includes (hx and pe concerning for bronchitits vs prolongued viral illness. Unlikely acs, pe ) Admission/Observation Consideration of admission/observation: Escalation of care including admission/observation considered Lab Data [facility] Lab Attestation statement: I reviewed the patient's lab results. 06/18/24 10:52 06/18/24 10:52 Labs: Lab Results 06/18/24 06/18/24 Range/Units 10:52 16:56 WBC 6.7 (4.8-10.8) X10*3/uL RBC 4.66 (4.20-5.50) X10*6/uL Hgb 9.1 L (12.0-16.0) g/dl Hct 31.5 L (37.0-47.0) % MCV 67.6 L (80.0-98.0) fL MCH 19.5 L (27.0-33.0) pg MCHC 28.9 L (31.0-35.0) g/dl RDW 19.1 H (11.0-16.0) % Plt Count 334 (160-400) X10*3/uL MPV 9.0 L (9.4-12.3) fL Immature Gran % (Auto) 0.1 (0.0-0.4) % Neut % (Auto) 63.8 (45-73) % Lymph % (Auto) 24.5 (20-40) % [place] % (Auto) 6.1 (2-11) % Eos % (Auto) 5.2 H (0-4) % Baso % (Auto) 0.3 (0-2) % Lymph # (Auto) 1.6 (1.2-4.9) X10*3/uL [place] # (Auto) 0.4 (0.1-1.2) X10*3/uL Eos # (Auto) 0.4 (0.0-0.4) X10*3/uL Baso # (Auto) 0.0 (0.0-0.2) X10*3/uL Abs Immat Gran (auto) 0.01 (0.00-0.03) X10*3/uL Absolute Neuts (auto) 4.3 (2.0-8.3) x10*3/uL Absolute Nucleated RBC 0.000 (0.0-0.012) X10*3/uL Nucleated RBC % (auto) 0.0 (0.0-0.2) /100WBC PT 13.5 H (10.9-12.4) SEC INR 1.2 H (0.9-1.1) D-Dimer High Sensitivty 232 NG/ML Sodium 144 (135-145) mmol/L Potassium 3.7 (3.3-5.1) mmol/L Chloride 112 H (96-108) mmol/L Carbon Dioxide 24 (22-29) mmol/L Anion Gap 12 (12-20) BUN 9 (9-16) mg/dL Creatinine 0.61 (0.5-1.4) mg/dL Estim Creat Clear Calc 135.9 Estimated GFR > 60 Random Glucose 88 (60-115) mg/dL Calcium 9.2 (8.4-10.2) mg/dL Troponin I High Sens < 2.7 (<3.5-17.0) ng/L B-Natriuretic Peptide 11 (<100) pg/mL Beta HCG, Quant < 2 mIU/mL COVID-19 (JOMAR) Negative (Negative) COVID-19 Clin Com See Note Influenza Type A (VILMA) Negative (Negative) Influenza Type B (VILMA) Negative (Negative) Influenza A & B Note See Note Independent Interpretation I performed an independent interpretation of an: EKG (Vent. Rate : 91 BPM Atrial Rate : 91 BPM P-R Int : 134 ms QRS Dur : 84 ms QT Int : 334 ms P-R-T Axes : 17 -14 0 degrees QTcB Int : 410 ms Normal sinus rhythm Minimal voltage criteria for LVH, may be normal variant ( R in aVL ) Borderline ECG When compared with ECG) and CT Scan Radiology Impression Discussion of test interpretation with radiology: I have reviewed the radiologist's reading. External Record Review External record reviewed: Inpatient record, Office record, Outpatient record, Prior outpatient labs, Prior outpatient radiology, Primary care record and Outside ED record Chronic Conditions Patient?s care impacted by: Other (see hpi) Critical Care Time Critical Care Time Critical Care Time: No Discharge Plan Discharge Clinical Impression: Shortness of breath Patient Disposition: Home, Self-Care Instructions: Shortness of Breath (ED) Additional Instructions: Take your medications as prescribed. If you were prescribed antibiotics today, it is important that you take your medication to their entirety, do not skip any doses, do not finish them early. Follow-up with your primary care provider this week. Return to the emergency department with new or worsening symptoms. Such as fevers, chills, chest pain, shortness of breath, nausea, vomiting, dizziness, headache, vision changes, lethargy In case of emergency call 911 CT/CT angio chest PE protocol IMPRESSION: 1. No evidence of pulmonary embolus or acute aortic syndrome. 2. [id number]-pa-[id number] cardiac enlargement with predominantly biventricular dilatation. 3. Enlarged main pulmonary artery suggesting pulmonary arterial hypertension. 4. Mild mosaic attenuation of the lung parenchyma, most likely secondary to partial expiratory phase. No focal pneumonia or abnormal opacities otherwise. No effusions. 5. Cholelithiasis. Prescriptions: New doxycycline hyclate 100 mg capsule 100 mg PO BID 10 Days Qty: 20 0RF prednisone 20 mg tablet 40 mg PO DAILY 5 Days Qty: 10 0RF No Action benralizumab 30 mg/mL syringe 30 mg subcut Q8W 56 Days Qty: 1 11RF albuterol sulfate 90 mcg/actuation HFA aerosol inhaler 2 puff inhalation Q4-6H PRN (Reason: shortness of breath or wheezing) Qty: 8.5 0RF benzonatate 100 mg capsule 100 mg PO TID PRN (Reason: cough) Qty: 12 0RF prednisone 20 mg tablet 40 mg PO DAILY Qty: 10 0RF benzonatate 100 mg capsule 100 mg PO TID PRN (Reason: cough) Qty: 20 0RF fluticasone propion-salmeterol [Advair HFA] 230-21 mcg/actuation HFA aerosol inhaler 2 puff inhalation BID 30 Days Qty: 12 6RF sumatriptan succinate 100 mg tablet 0 mg PO DAILY oxcarbazepine 150 mg tablet 150 mg PO BID trazodone 50 mg tablet 50 mg PO DAILY PRN (Reason: insomnia) prednisone 50 mg tablet 50 mg PO DAILY bupropion HCl 150 mg tablet extended release 24 hr 150 mg PO DAILY aripiprazole 5 mg tablet 5 mg PO DAILY Referrals: [facility] [Provider Group] - 3 days [facility] [Provider Group] - 3 days Marisa Livingston MD [Primary Care Provider] - 2 days Stand Alone Forms: Work/School Release Print Language: Macedonian
--- NOTE | 2024-06-18 10:34 | ECG_ITS ---
Test Reason : sob Blood Pressure : */* mmHG Vent. Rate : 91 BPM Atrial Rate : 91 BPM P-R Int : 134 ms QRS Dur : 84 ms QT Int : 334 ms P-R-T Axes : 17 -14 0 degrees QTcB Int : 410 ms Normal sinus rhythm Minimal voltage criteria for LVH, may be normal variant ( R in aVL ) Borderline ECG When compared with ECG of 29-Nov-2018 17:49, No significant change was found Referred By: Bay Christina Electronically Signed By: JER DE LA VEGA
[2024-06-18 10:57] LABS: MANUAL DIFF FLAG NO
[2024-06-18 11:01] LABS: Basophils Percent Auto 0.3 % (0-2); Eosinophils Absolute Auto 0.4 X10*3/uL (0.0-0.4); Eosinophils Percent Auto 5.2 % (0-4); Hematocrit 31.5 % (37.0-47.0); Hemoglobin 9.1 g/dl (12.0-16.0); Imm Gran Abs Auto 0.01 X10*3/uL (0.00-0.03); Imm Gran Pct Auto 0.1 % (0.0-0.4); Lymphocytes Absolute Auto 1.6 X10*3/uL (1.2-4.9); Lymphocytes Percent Auto 24.5 % (20-40); Mean Corpuscular HGB Conc 28.9 g/dl (31.0-35.0); Mean Corpuscular Hemoglobin 19.5 pg (27.0-33.0); Mean Corpuscular Volume 67.6 fL (80.0-98.0); Monocytes Absolute Auto 0.4 X10*3/uL (0.1-1.2); Monocytes Percent Auto 6.1 % (2-11); Neutrophils Absolute Auto 4.3 x10*3/uL (2.0-8.3); Neutrophils Percent Auto 63.8 % (45-73); Platelet Count 334 X10*3/uL (160-400); Red Blood Count 4.66 X10*6/uL (4.20-5.50); Red Cell Distribution Width 19.1 % (11.0-16.0); White Blood Count 6.7 X10*3/uL (4.8-10.8)
[2024-06-18 11:05] LABS: INTERNATIONAL NORM RATIO 1.2 (0.9-1.1); Prothrombin Time 13.5 SEC (10.9-12.4)
[2024-06-18 11:12] LABS: Anion Gap 12 (12-20); Blood Urea Nitrogen 9 mg/dL (9-16); Calcium 9.2 mg/dL (8.4-10.2); Carbon Dioxide 24 mmol/L (22-29); Chloride 112 mmol/L (96-108); Creatinine Clr Calc Pharmacy 135.9; Estimated Glomerular Filt Rate > 60; Glucose Random 88 mg/dL (60-115); Potassium 3.7 mmol/L (3.3-5.1); Sodium 144 mmol/L (135-145)
[2024-06-18 11:21] LABS: COVID-19 Test Negative (Negative); IDNOW Serial# 58CA691E
[2024-06-18 11:22] LABS: IDNOW Serial# 08D9AD1C; Influenza A Negative (Negative); Influenza B2 Negative (Negative)
--- OUTSIDE RECORDS SUMMARY | 2024-06-18 12:19 | XMS_ITS | Encounter Summary ---
Author Organization [employer] Address [address] [facility] 7 [place] [address] Care Team Providers Care Lens Blocker Name Role Phone Marisa Livingston MD Primary Care Provider + Reason for Visit * Reason Comments Med Refill Encounter Details Date Type Department Care Team ([facility] st Contact Info) Description 06/07/2024 Refill [facility] [address] [place] [address] Marisa Livingston MD [address] [place] [address] Social History Tobacco Use Types Packs/Day Years [...] Care Team (Late st Contact Info) Description 07/02/2024 12:15 PM EST Office Visit [facility] [address] [place] [phone] Marisa Livingston MD [address] [place] [phone] 07/13/2024 3:30 PM EST Office Visit [facility] [address] [place] [phone] Marisa Livingston MD [address] [place] [phone] documented as of this encounter Visit Diagnoses Not on filedocumented in this encounter Additional Health Concerns Assessment Noted Time PHQ-9 Depression Total Score: 17 024 9:31 AM EST documented as of this encounter Care Teams Lens Blocker Relationship Specialty Start Date End Date Marisa Livingston MD [address] [place] [phone] PCP - General Family Medicine 03/12/19 documented as of this encounter
--- OUTSIDE RECORDS SUMMARY | 2024-06-18 12:19 | XMS_ITS | Encounter Summary ---
Author Organization [employer] Address [address] [facility] [address] [place] [address] Care Team Providers Care Back Stayer Name Role Phone Marisa Livingston MD Primary Care Provider + Reason for Visit * Reason Onset Date Comments Nurse Triage 06/17/2024 SOB Encounter Details Date Type Department Care Team ([facility] st Contact Info) Description 06/17/2024 Telephone [facility] [address] [place] [address] Amirah Pugh, CHAPITO [address] [place] [address] Nurse Triage (SOB) Social History Tobacco Use [...] g 2 ergocalciferol (Vitamin D2) 1.25 MG (55998 UT) capsule TAKE 1 CAPSULE(1.25 MG) BY [...] NEEDED FOR WHEEZING 180 mL 2 Nebulizers ([employer] Aerosol Delivery System) [facility] USE DIRECTED. 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 Since symptoms have been ongoing [...] Description 07/02/2024 12:15 PM EST Office Visit [facility] [address] [place] [phone] Marisa Livingston MD [address] [place] [phone] 07/13/2024 3:30 PM EST Office Visit [facility] [address] [place] [phone] Marisa Livingston MD [address] [place] [phone] documented as of this encounter Visit Diagnoses Not on filedocumented in this encounter Additional Health Concerns Assessment Noted Time PHQ-9 Depression Total Score: 17 024 9:31 AM EST documented as of this encounter Care Teams Back Stayer Relationship Specialty Start Date End Date Marisa Livingston MD [address] [place] [phone] PCP - General Family Medicine 03/12/19 documented as of this encounter
--- OUTSIDE RECORDS SUMMARY | 2024-06-18 12:19 | XMS_ITS | Encounter Summary ---
Author Organization [employer] Address [address] [facility] [address] 7[address] [place] [address] Care Team Providers Care Site Safety Coordinator Name Role Phone Marisa Livingston MD Primary Care Provider + Encounter Details Date Type Department Care Team ([facility] st Contact Info) Description 06/03/2024 Orders Only [facility] [address] [place], [place] [phone] Berlin Hagen, DMD [address] [place] [address] Social History Tobacco Use Types Packs/Day Years [...] Description 07/02/2024 12:15 PM EST Office Visit [facility] [address] [place] [phone] Marisa Livingston MD [address] [place] [phone] 07/13/2024 3:30 PM EST Office Visit [address] [address] Marisa Livingston MD [address] [place] [phone] Scheduled Orders Name Type Priority Associated Diagnoses Orde r Schedule PERIODIC ORAL EVALUATION - ESTABLISHED PATIENT Dental Routine 1 Occurren alberto starting 06/03/2024 documented as of this encounter Visit Diagnoses Not on filedocumented in this encounter Additional Health Concerns Assessment Noted Time PHQ-9 Depression Total Score: 17 024 9:31 AM EST documented as of this encounter Care Teams Site Safety Coordinator Relationship Specialty Start Date End Date Marisa Livingston MD [address] [place] [phone] PCP - General Family Medicine 03/12/19 documented as of this encounter
--- OUTSIDE RECORDS SUMMARY | 2024-06-18 12:19 | XMS_ITS | Encounter Summary ---
Author Organization [employer] Address [address] [facility] [address] 7[address] [place] [address] Care Team Providers Care Fountain Pen Turner Name Role Phone Marisa Livingston MD Primary Care Provider + Encounter Details Date Type Department Care Team ([facility] st Contact Info) Description 05/26/2024 4:00 PM EST Office Visit [facility] [address] [place] [address] Joann Sandoval MD [address] [place] [address] Acute severe exacerbation of asthma (Primary Dx) [...] CHAPITO [place]. Upon arrival to [facility] [place], EMS given verbal report. Pt to be transported to [facility]. Pt to F/U as needed upon discharge. [...] Description 07/02/2024 12:15 PM EST Office Visit [address] [address] Marisa Livingston MD [address] [place] [address] 07/13/2024 3:30 PM EST Office Visit [facility] [address] [place] [address] Marisa Livingston MD [address] [place] [phone] documented as of this encounter Visit Diagnoses [...] documented as of this encounter Care Teams Fountain Pen Turner Relationship Specialty Start Date End Date Marisa Livingston MD [address] [place] [address] PCP - General Family Medicine 03/12/19 documented as of this encounter
--- OUTSIDE RECORDS SUMMARY | 2024-06-18 12:19 | XMS_ITS | Encounter Summary ---
Author Organization [employer] Address [address] [facility] [address] 7[address] [place] [address] Care Team Providers Care Information Technology Specialist Name Role Phone Marisa Livingston MD Primary Care Provider + Encounter Details Date Type Department Care Team ([facility] st Contact Info) Description 06/17/2024 Telephone [facility] [address] [place], [place] [phone] Jaki Cruz MD [address] [place] [address] Social History Tobacco Use Types Packs/Day Years [...] encounter Miscellaneous Notes * Telephone Encounter - Jaki Cruz MD - 06/17/2024 5:10 PM EST GREER Zhang, can you please schedule Cleo with Miki gunter available for SOB. Thank you. documented in this encounter Plan of Treatment Upcoming Encounters Date Type Department Care Team (Late st Contact Info) Description 07/02/2024 12:15 PM EST Office Visit [facility] [address] [place] [phone] Marisa Livingston MD [address] [place] [phone] 07/13/2024 3:30 PM EST Office Visit [facility] [address] [place] [phone] Marias Livingston MD [address] [place] [phone] documented as of this encounter Visit Diagnoses Not on filedocumented in this encounter Additional Health Concerns Assessment Noted Time PHQ-9 Depression Total Score: 17 024 9:31 AM EST documented as of this encounter Care Teams Information Technology Specialist Relationship Specialty Start Date End Date Marisa Livingston MD [address] [place] [phone] PCP - General Family Medicine 03/12/19 documented as of this encounter
--- OUTSIDE RECORDS SUMMARY | 2024-06-18 12:19 | XMS_ITS | Encounter Summary ---
Author Organization [employer] Address [address] [place] [address] [address] [address] Care Team Providers Care Television Agent Name Role Phone Marisa Livingston MD Primary Care Provider + Reason for Referral * Consultation (Routine) - Authorized Specialty Diagnoses / Procedures Referred By Contac t Referred To Contact Pulmonary Disease Diagnoses Dyspnea on exertion Moderate persistent asthma without complication Jaki Cruz MD [address] [place] [phone] Phone: tel: fax: [facility] Pulmonary [address] [place] [address] Phone: tel: fax: Referral ID Status Reason Start Date Expiration Date Visits Requested Visits Authorized [id number] Authorized Specialty Services Required 06/17/2024 06/17/2025 6 6 Reason for Visit * Reason Comments Shortness of Breath Encounter Details Date Type Department Care Team (Late st Contact Info) Description 06/17/2024 3:20 PM EST Office Visit [facility] [address] [place] [phone] Jaki Cruz MD [address] [place] [address] [phone] Dyspnea on exertion (Primary Dx); Moderate persistent [...] Center on 05/26/24 and was directed to [facility] ED, tested positive for Flu A and [...] chest pain. She notes had seen a landcare facilitator, but cannot remember who she was seeing. [...] discussed. -Seek medical attention for worsening symptoms. I, Fawn Moody, am serving as a scribe to document [...] 12:15 PM EST Office Visit [facility] [address] [place] [phone] Marisa Livingston MD [address] [place] [phone] 07/13/2024 3:30 PM EST Office Visit [facility] [address] [place] [phone] Marisa Livingston MD [address] [place] [phone] Scheduled Orders Name Type Priority Associated Diagnoses [...] Protein <0.10 < or = 0.50 mg/dL [facility] Blood Venous blood specimen / Unknown 06/17/2024 3:32 PM EST 06/17/2024 3:59 PM EST us Jaki Cruz MD LAB BLOOD ORDERABLES Final Result [facility] [address] [place] [phone] * (ABNORMAL) CBC auto differential (06/17/2024 3:32 PM EST) White Blood Count 6.9 4.8 - 10.8 X10*3/uL [facility] Red Blood Count 4.52 4.20 - 5.50 X10*6/uL [facility] Hemoglobin 8.8(L) 12.0 - 16.0 g/dl [facility] Hematocrit 30.7(L) 37.0 - 47.0 % [facility] Mean Corpuscular Volume 67.9(L) 80.0 - 98.0 fL [facility] Mean Corpuscular Hemoglobin 19.5(L) 27.0 - 33.0 pg [facility] Mean Corpuscular HGB Conc 28.7(L) 31.0 - 35.0 g/dl [facility] Red Cell Distribution Width 19.4(H) 11.0 - 16.0 % [facility] Platelet Count 346 160 - 400 X10*3/uL [facility] Mean Platelet Volume 9.4 9.4 - 12.3 fL [facility] Neutrophils Percent Auto 60.7 45 - 73 % [facility] Imm Gran Pct Auto 0.3 0.0 - 0.4 % [facility] Lymphocytes Percent Auto 27.4 20 - 40 % [facility] Monocytes Percent Auto 6.4 2 - 11 % [facility] Eosinophils Percent Auto 4.8(H) 0 - 4 % [facility] Basophils Percent Auto 0.4 0 - 2 % [facility] NRBC Pct Auto 0.0 0.0 - 0.2 /100WBC [facility] Neutrophils Absolute Auto 4.2 2.0 - 8.3 x10*3/uL [facility] Imm Gran Abs Auto 0.02 0.00 - 0.03 X10*3/uL [facility] Lymphocytes Absolute Auto 1.9 1.2 - 4.9 X10*3/uL [facility] Monocytes Absolute Auto 0.4 0.1 - 1.2 X10*3/uL [facility] Eosinophils Absolute Auto 0.3 0.0 - 0.4 X10*3/uL [facility] Basophils Absolute Auto 0.0 0.0 - 0.2 X10*3/uL [facility] NRBC Abs Auto 0.000 0.0 - 0.012 X10*3/uL [facility] Blood Venous blood specimen / Unknown 06/17/2024 3:32 PM EST 06/17/2024 3:59 PM EST Jaki Cruz MD LAB BLOOD ORDERABLES Final Result Performing Organization Address [facility] de Phone Number [facility] [address] [place] [phone] * D Dimer High Sensitivity (06/17/2024 3:32 PM EST) Pathologist [facility] D Dimer High Sensitivity 232 NG/ML [facility] Comment:D-DIMER HS REFERENCE RANGENote: Our assay [...] BLOOD ORDERABLES Final Result Performing Organization Address [facility] de Phone Number [facility] [address] [place] [phone] [phone] * XR Chest 2 Views (06/17/2024 3:00 PM EST) Anatomical Region Laterality Modality Chest Radiographic Angelita ging 06/17/2024 3:00 PM EST Narrative 06/17/2024 3:55 PM EST ?[facility] ?[address] ?[place] [address] ?XRay Report ? Signed ? Patient: Smith Dino,Cleo J ?MR#: ?? [id number] ? : 1990 ?Acct:[id number] ? Age/Sex: 33 / F ?ADM Date: 01/30/25 ? Loc: HO.HHCX ? Attending Dr: Jaki Cruz MD ? Ordering Physician: Jaki Cruz MD ?? Date of Service: 06/17/24 ?? Procedure(s): XR chest 2V ?? Accession Number(s): [id number] ? cc: Jaki Cruz MD ? EXAMINATION: [...] DD/ 1500 ? TD/TT: 06/17/24 1520 ? Cyber Incident Responder: ? 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 Konstantincurtis, Image - 06/17/[address] [address] XRay Report Signed Patient: Cleo Rock JMR#: [id number] : 1990Acct:[id number] Age/Sex: 33 / FADM Date: 06/17/24 Loc: HO.HHCX Attending Dr: Jaki Cruz MD Ordering Physician: Jaki Cruz MD Date of Service: 06/17/24 Procedure(s): XR chest 2V Accession Number(s): [id number] cc: Jaki Cruz MD EXAMINATION: XR CHEST [...] 06/17/24 1552 DD/ 1500 TD/TT: 06/17/24 1520 Cyber Incident Responder: Jaki Cruz MD IMG XR PROCEDURES Final Re sult * POCT rapid strep A manually resulted (06/17/2024 2:36 PM EST) [facility] Rapid Strep A Screen Negative Negative, None Detected Swab 06/17/2024 2:36 PM EST Jaki Cruz MD POINT OF CARE TEST ENTER/E DIT ORDERABLES Final Result * Influenza B (ID NOW Rapid Molecular) (06/17/2024 2:36 PM EST) [facility] Influenza B Negative Negative, Indeterminate [facility] Swab 06/17/2024 2:36 PM EST Jaki Cruz MD POINT OF CARE TEST ENTER/E DIT ORDERABLES Final Result [facility] [address] [place] [address] [phone] * Influenza A (ID NOW Rapid Molecular) (06/17/2024 2:36 PM EST) [facility] Influenza A Negative Negative, Indeterminate [facility] Swab 06/17/2024 2:36 PM EST us Jaki Cruz MD POINT OF CARE TEST ENTER/E DIT ORDERABLES Final Result [facility] [address] [place] [phone] * POCT Rapid Covid-19 BinaxNOW (06/17/2024 2:09 PM EST) Rapid COVID Ag Negative Nares 06/17/2024 2:09 [...] documented as of this encounter Care Teams Television Agent Relationship Specialty Start Date End Date Marisa Livingston MD [address] [place] [phone] PCP - General Family Medicine 03/12/19 documented as of this encounter
--- OUTSIDE RECORDS SUMMARY | 2024-06-18 12:19 | XMS_ITS | Encounter Summary ---
Author Organization [employer] Address [address] [facility] 7 [place] [address] Care Team Providers Care Loan Processing Supervisor Name Role Phone Marisa Livingston MD Primary Care Provider + Reason for Visit * Reason Comments Med Refill Encounter Details Date Type Department Care Team ([facility] st Contact Info) Description 05/27/2024 Refill [facility] [address] [place] [address] Marisa Livingston MD [address] [place] [address] Social History Tobacco Use Types Packs/Day Years [...] Description 07/02/2024 12:15 PM EST Office Visit [facility] [address] [place] [phone] Marisa Livingston MD [address] [place] [phone] 07/13/2024 3:30 PM EST Office Visit [facility] [address] [place] [phone] Marisa Livingston MD [address] [place] [phone] documented as of this encounter Visit Diagnoses Not on filedocumented in this encounter Additional Health Concerns Assessment Noted Time PHQ-9 Depression Total Score: 17 024 9:31 AM EST documented as of this encounter Care Teams Loan Processing Supervisor Relationship Specialty Start Date End Date Marisa Livingston MD [address] [place] [phone] PCP - General Family Medicine 03/12/19 documented as of this encounter
--- OUTSIDE RECORDS SUMMARY | 2024-06-18 12:19 | XMS_ITS | Encounter Summary ---
Author Organization [employer] Address [address] [address] [facility] [address] [place] [address] Care Team Providers Care Import Coordinator Name Role Phone Marisa Livingston MD Primary Care Provider + Reason for Visit * Reason Onset Date Comments ED EXPECT 06/17/2024 Encounter Details Date Type Department Care Team ([facility] st Contact Info) Description 06/17/2024 Telephone [facility] [address] [place] [address] Bettie Garay RN ED EXPECT Social History Tobacco Use Types Packs/Day Years [...] encounter Miscellaneous Notes * Telephone Encounter - Bettie Garay RN - 06/17/2024 4:47 PM EST Call to expect placed to [facility] per Dr. Cruz. Patient seen in [facility] this afternoon for dyspnea on exertion. Labs significant for Hgb 8.8/ Hematocrit 30.7 and D-dimer 232. Advised ED triage that patient reports she will be coming tomorrow morning as she has no childcare. documented in this encounter Plan of Treatment Upcoming Encounters Date Type Department Care Team (Late st Contact Info) Description 07/02/2024 12:15 PM EST Office Visit [facility] [address] [place] [phone] Marisa Livingston MD [address] [place] [phone] 07/13/2024 3:30 PM EST Office Visit [facility] [address] [place] [phone] Marisa Livingston MD [address] [place] [phone] documented as of this encounter Visit Diagnoses Not on filedocumented in this encounter Additional Health Concerns Assessment Noted Time PHQ-9 Depression Total Score: 17 024 9:31 AM EST documented as of this encounter Care Teams Import Coordinator Relationship Specialty Start Date End Date Marisa Livingston MD [address] [place] [phone] PCP - General Family Medicine 03/12/19 documented as of this encounter
--- OUTSIDE RECORDS SUMMARY | 2024-06-18 12:19 | XMS_ITS | Clinical Summary ---
Author Organization [employer] Address [address] [place] [address] Care Team Providers Care Director Of Claims Name Role Phone Marisa Livingston MD Primary [...] hours. Active Nebulizers (Vios Aerosol Delivery System) [facility] USE DIRECTED. 11/09/19 23 Active Fasenra Pen [...] 24 Active ergocalciferol (Vitamin D2) 1.25 MG (15558 UT) capsule TAKE 1 CAPSULE(1.25 MG) BY MOUTH 1 TIME EVERY WEEK 12 capsule 1 06/08/19 25 Active ergocalciferol (Vitamin D2) 1.25 MG (28658 UT) capsule TAKE 1 CAPSULE(1.25 MG) BY [...] exercise, life style modifications, diet, referral to transportation maintenance specialist. Discussed re lower calorie intake, increase dietary fiber Assessment & Plan (11/22/2022 1:34 PM EDT): Discussed re weight reduction options including exercise, life style modifications, diet, referral to transportation maintenance specialist. Discussed re lower calorie intake, increase [...] -Uncontrolled. -Restart Advair Diskus -Follow up with chargemaster specialist for immunotherapy. -Counseled on protocol for FMLA [...] gave today NBZ machine written prescription to [facility] nurse staff -Alarm signs and sx in [...] anti-muscarinic inhaler as Trelegy -Referred today to technology support analyst for uncontrolled asthma Assessment & Plan (07/03/2022 [...] exercise, life style modifications, diet, referral to transportation maintenance specialist. Discussed re lower calorie intake, increase [...] at home PAP smear: Overdue, refer to chargeback specialist will need further eval for DUB Adult [...] Encounters Date Type Department Care Team Description 06/18/2024 Orders Only GENERIC EXTERNAL DATA DEPARTMENT Provider, Generic External Data 06/17/2024 3:20 PM EST Office Visit [facility] [address] [place] [phone] Jaki Cruz MD Dyspnea on exertion (Primary Dx); Moderate persistent asthma without complication 06/17/2024 Telephone [facility] [address] [place] [phone] Jaki Cruz MD 06/17/2024 Telephone [facility] [address] [place] [address] [phone] Bettie Garay RN ED EXPECT 06/17/2024 Orders Only [facility] [address] [address] Jaki Cruz MD Chronic anemia (Primary Dx) 06/17/2024 Telephone [facility] [address] [address] Amirah Pugh, RN Nurse Triage (SOB) 06/10/[address] [address] Mairsa Livingston MD Nurse Triage 06/07/[address] [address] Marisa Livingston MD 06/04/[address] [address] Marisa Livingston MD Nurse Triage 06/03/2024 Orders Only [facility] [address] [place] [phone] Berlin Hagen DMD 05/27/[address] [address] Marisa Livingston MD 05/26/2024 4:00 PM EST [facility] [address] [address] Joann Sandoval MD Acute severe exacerbation of asthma (Primary Dx) 05/26/2024 Orders Only [facility] External Provider, [facility] 05/26/[address] [address] Marisa Livingston MD Nurse Triage 05/20/[address] [address] Marisa Livingston MD July recall 03/26/2024 3:00 PM EST Office Visit [facility] [address] [place] [address] Julian Quevedo Dental calculus (Primary Dx) from [...] Description 07/02/2024 12:15 PM EST Office Visit [facility] [address] [place] [address] [phone] Marisa Livingston MD [address] [place] [address] [phone] 07/13/2024 3:30 PM EST Office Visit [facility] [address] [place] [phone] Marisa Livingston MD [address] [place], [place] [phone] Health Maintenance Due Date Last Done Comments Alcohol/Substance Use Screening 2000 Family Planning (PISQ) 12/06/2003 Hepatitis C Screening 2006 Hepatitis B Vaccines (1 of 3 - 19+ 3-dose series) 12/06/2007 Dental Oral Exam 08/29/2022 02/27/2022 Depression Monitoring (PHQ-9) 01/06/2024 07/08/2023, 07/08/2023 COVID-19 Vaccine ( season) 2024 Influenza Vaccine (#1) 2024 3, 07/03/2022, 02/18/2019, Additional history exists SDOH Screening 06/27/2024 06/27/2023 Depression Screening 07/08/2024 07/08/2023, 07/08/19 24 Dental Prophylaxis 09/24/2024 03/26/2024 Dental X-Ray: Full [...] Procedure Name Priority Date/Time Associated Diagnosis Comments XR CHEST 2 VIEWS Routine 06/18/2024 11:0 6 AM EST COVID-19 ID NOW (DAVIS) Routine 06/18/2024 10:52 AM EST BASIC METABOLIC PANEL Routine 06/18/2024 10:52 AM EST PROTHROMBIN TIME-INR Routine 06/18/2024 10:52 AM EST CBC WITH AUTO DIFFERENTIAL Routine 06/18/2024 10:52 AM EST INFLUENZA A B2 ID NOW (DAVIS) Routine 06/18/2024 10:52 AM EST C-REACTIVE PROTEIN Routine 06/17/2024 3: 32 PM [...] Recently Relevant to Health Maintenance Results * XR Chest 2 Views (06/18/2024 11:06 AM EST) Only the most recent of3 resultswithin the time period is included. Anatomical Region Laterality Modality Chest Radiographic Angelita ging 06/18/2024 11:0 6 AM EST Narrative 06/18/2024 11:19 AM EST ? [facility] ?[address] ?[place] [address] ?XRay Report ? Signed ? Patient: Cleo Rock ?MR#: ?? [id number] ? : 1990 ?Acct:[id number] ? Age/Sex: 33 / F ?ADM Date: 06/18/24 ? Loc: HO.ED ? Attending Dr: ? Ordering Physician: Bay Christina ?? Date of Service: 06/18/24 ?? Procedure(s): XR chest 2V ?? Accession Number(s): [id number] ? cc: Marisa Livingston MD; Bay Christina ? EXAMINATION: ?? XR CHEST ? CLINICAL INFORMATION: ?? Cough ? COMPARISON: ?? June 17, 2024 ? TECHNIQUE: ?? 2 views of the chest were obtained. ? FINDINGS: ?? No consolidation, pleural effusion or pneumothorax. No hyperinflation. ?? Cardiomediastinal silhouette is normal. ?? Osseous structures are intact. ? XR/XR chest 2V ?? IMPRESSION: ?? No acute airspace disease. ? Electronically signed by: ??Fredy Ruiz MD ??06/18/2024 11:16 AM ?? EST RP ? Dictated By: ?Fredy Marino MD ? Signed By: ?<Electronically signed by Fredy Sun MD in OV> ? 06/18/24 1116 ? DD/ 1106 ? TD/TT: 06/18/24 1113 ? Operations Forester: ? 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 Armando, Image - 06/18/[address] [address] XRay Report Signed Patient: Cleo Rock JMR#: [id number] : 1990Acct:[id number] Age/Sex: 33 / FADM Date: 06/18/24 Loc: .ED Attending Dr: Ordering Physician: Bay Christina Date of Service: 06/18/24 Procedure(s): XR chest 2V Accession Number(s): [id number] cc: Marisa Livingston MD; Bay Christina EXAMINATION: XR CHEST CLINICAL INFORMATION: Cough COMPARISON: June 17, 2024 TECHNIQUE: 2 views of the chest were obtained. FINDINGS: No consolidation, pleural effusion or pneumothorax. No hyperinflation. Cardiomediastinal silhouette is normal. Osseous structures are intact. XR/XR chest 2V IMPRESSION: No acute airspace disease. Electronically signed by: Fredy Ruiz MD 06/18/2024 11:16 AM EST Dictated By: Fredy Marino MD Signed By: <Electronically signed by Fredy Sun MDin OV> 06/18/24 1116 DD/ 1106 TD/TT: 06/18/24 1113 Operations Forester: [facility] External Provider IMG XR PROCEDURES Final Result * Influenza A B2 ID NOW (Davis) (06/18/2024 10:52 AM EST) IDNOW SERIAL# [id number] [facility] Influenza A Negative Negative [facility] Influenza B2 Negative Negative [facility] Influenza A B2 Note See Note [facility] Comment:The Davis ID NOW In fluenza A B2 test is used for thequalitative detection of influenza A and B from patientswith signs and symptoms of respiratory infection.Negative results do not preclude influenza virus infectionand should not be used as the sole basis for diagnosis,treatment or other patient management decisions.There is a risk of false negative results due to thepresence of variants in the viral targets of the assay, lowlevels of virus in the specimen and co- infection withRespiratory Syncytial Virus. 06/18/2024 10:5 2 AM EST 06/18/2024 10:56 AM EST us Generic External Data Provider LAB MICROBIOLOGY - GENERAL ORDERABLES Final Result [facility] [address] [place] [phone] * COVID-19 ID NOW (DAVIS) (06/18/2024 10:52 AM EST) IDNOW SERIAL# [id number] [facility] COVID-19 TEST Negative Negative [facility] COVID-19 NOTE See Note [facility] Comment: Results are for the identification of SARS-CoV2 RNA. TheSARS-CoV2 RNA is generally detectable in respiratory samplesduring the acute phase of infection. Positive results areindicative of the presence of SARS-CoV-2 RNA; clinicalcorrelation with patient history and other diagnosticinformation is necessary to determine patient infectionstatus. Positive results do not rule out bacterial infectionor co- infection with other viruses.Testing facilities within the [facility] and itsterritories are required to report all positive results tothe appropriate public health authorities.Negative results should be treated as presumptive and, ifinconsistent with clinical signs and symptoms or necessaryfor patient management, should be tested with differentauthorized or cleared molecular tests. Negative results donot preclude SARS-CoV2 RNA infection and should not be usedas the sole basis for patient management decisions. Negativeresults should be considered in the context of a patient'srecent exposures, history and the presence of clinical signsand symptoms consistent with COVID-19.This test has been authorized by the FDA under an EmergencyUse Authorization (EUA) for use by authorized laboratories.Testing performed on the Communication Intelligence ID NOW utilizing NAAT. 06/18/2024 10:5 2 AM EST 06/18/2024 10:56 AM EST us Generic External Data Provider LAB MOLECULAR DELMI GNOSTICS ORDERABLES Final Result [facility] [address] [place] [phone] * (ABNORMAL) CBC auto differential (06/18/2024 10:52 AM EST) Only the most recent of2 resultswithin the time period is included. White Blood Count 6.7 4.8 - 10.8 X10*3/uL [facility] Red Blood Count 4.66 4.20 - 5.50 X10*6/uL [facility] Hemoglobin 9.1(L) 12.0 - 16.0 g/dl [facility] Hematocrit 31.5(L) 37.0 - 47.0 % [facility] Mean Corpuscular Volume 67.6(L) 80.0 - 98.0 fL [facility] Mean Corpuscular Hemoglobin 19.5(L) 27.0 - 33.0 pg [facility] Mean Corpuscular HGB Conc 28.9(L) 31.0 - 35.0 g/dl [facility] Red Cell Distribution Width 19.1(H) 11.0 - 16.0 % [facility] Platelet Count 334 160 - 400 X10*3/uL [facility] Mean Platelet Volume 9.0(L) 9.4 - 12.3 fL [facility] Neutrophils Percent Auto 63.8 45 - 73 % [facility] Imm Gran Pct Auto 0.1 0.0 - 0.4 % [facility] Lymphocytes Percent Auto 24.5 20 - 40 % [facility] Monocytes Percent Auto 6.1 2 - 11 % [facility] Eosinophils Percent Auto 5.2(H) 0 - 4 % [facility] Basophils Percent Auto 0.3 0 - 2 % [facility] NRBC Pct Auto 0.0 0.0 - 0.2 /100WBC [facility] Neutrophils Absolute Auto 4.3 2.0 - 8.3 x10*3/uL [facility] Imm Gran Abs Auto 0.01 0.00 - 0.03 X10*3/uL [facility] Lymphocytes Absolute Auto 1.6 1.2 - 4.9 X10*3/uL [facility] Monocytes Absolute Auto 0.4 0.1 - 1.2 X10*3/uL [facility] Eosinophils Absolute Auto 0.4 0.0 - 0.4 X10*3/uL [facility] Basophils Absolute Auto 0.0 0.0 - 0.2 X10*3/uL [facility] NRBC Abs Auto 0.000 0.0 - 0.012 X10*3/uL [facility] 06/18/2024 10:5 2 AM EST 06/18/2024 10:56 AM EST us Generic External Data Provider LAB BLOOD ORDERAB LES Final Result Performing Organization Address City/State/[facility] Co de Phone Number [facility] [address] [place] [address] [phone] * (ABNORMAL) Prothrombin Time-INR (06/18/2024 10:52 AM EST) Prothrombin Time 13.5(H) 10.9 - 12.4 SEC [facility] INTERNATIONAL NORM RATIO 1.2(H) 0.9 - 1.1 [facility] Comment:INTERNATIONAL NORMAL IZED RATIO (INR) REFERENCE RANGES Reference RangeFor patients not on anticoagulant therapy: 0.9 - 1.1INR ranges for oral anticoagulanttherapy:For prevention and treatment of venous thrombosis and pulmonary embolism: 2.0 - 3.0For acute myocardial infarction with aspirin therapy: 2.0 - 3.0For acute myocardial infarction without aspirin therapy: 3.0 - 4.0For patients with mechanical prosthetic heart valves: 2.5 - 3.5 06/18/2024 10:5 2 AM EST 06/18/2024 10:56 AM EST us Generic External Data Provider LAB BLOOD ORDERAB LES Final Result Performing Organization Address City/[facility]/ZIP Co de Phone Number [facility] [address] [place] [phone] * (ABNORMAL) Basic Metabolic Panel (06/18/2024 10:52 AM EST) Sodium 144 135 - 145 mmol/L [facility] Potassium 3.7 3.3 - 5.1 mmol/L [facility] Chloride 112(H) 96 - 108 mmol/L [facility] Carbon Dioxide 24 22 - 29 mmol/L [facility] Anion Gap 12 12 - 20 [facility] Urea Nitrogen (BUN) 9 9 - 16 mg/dL [facility] Creatinine, Serum 0.61 0.5 - 1.4 mg/dL [facility] Creatinine Clr Calc Pharmacy 135.9 [facility] Comment:Provided height and weight: 162.56 cm,85.2 kg.eGFR (calculated from the MDRD study equation) and eCrCl(calculated from the Cockcroft-Gault equation) are based ondifferent parameters and may not yield comparable results.If eCrCl result is absurd, please check patient'sheight/weight. Estimated Glomerular Filt Rate >60 [facility] Comment:Chronic Kidney Disea se: Estimated GFR < 60 mL/min/1.94r2Dvmnlz Kidney Disease: Estimated GFR < 15 mL/min/1.73m2 Glucose 88 60 - 115 mg/dL [facility] Calcium 9.2 8.4 - 10.2 mg/dL [facility] 06/18/2024 10:5 2 AM EST 06/18/2024 10:56 AM EST us Generic External Data Provider LAB BLOOD ORDERAB LES Final Result Performing Organization Address City/[facility]/ZIP Co de Phone Number [facility] [address] [place] [phone] * D Dimer High Sensitivity (06/17/2024 3:32 PM EST) Pathologist [facility] D Dimer High Sensitivity 232 NG/ML [facility] Comment:D-DIMER HS REFERENCE RANGENote: Our [...] BLOOD ORDERABLES Final Result Performing Organization Address [place]/[facility] Phone Number [facility] [address] [place] [phone] * C-reactive Protein (06/17/2024 3:32 PM EST) [facility] C Reactive Protein <0.10 < or = 0.50 mg/dL [facility] Blood Venous blood specimen / Unknown 06/17/2024 3:32 PM EST 06/17/2024 3:59 PM EST Jaki Cruz MD LAB BLOOD ORDERABLES Final Result Performing Organization Address [facility] Co de Phone Number [facility] [address] [place] [phone] * Influenza B (ID NOW Rapid Molecular) (06/17/2024 2:36 PM EST) [facility] Influenza B Negative Negative, Indeterminate [facility] Swab 06/17/2024 2:36 PM EST Jaki Cruz MD POINT OF CARE TEST ENTER/E DIT ORDERABLES Final Result Performing Organization Address [facility]/State/ZIP Co de Phone Number [facility] [address] [place] [phone] [phone] * Influenza A (ID NOW Rapid Molecular) (06/17/2024 2:36 PM EST) Pathologist [facility] Influenza A Negative Negative, Indeterminate [facility] Swab 06/17/2024 2:36 PM EST Jaki Cruz MD POINT OF CARE TEST ENTER/E DIT ORDERABLES Final Result [facility] [address] [place] [phone] [phone] * POCT rapid strep A manually resulted (06/17/2024 2:36 PM EST) [facility] Rapid Strep A Screen Negative Negative, None Detected Swab 06/17/2024 2:36 PM EST Result [facility] Jaki Cruz MD POINT OF CARE TEST ENTER/E DIT ORDERABLES Final Result * POCT Rapid Covid-19 BinaxNOW (06/17/2024 2:09 PM EST) [facility] Rapid COVID Ag Negative Nares 06/17/2024 2:09 PM EST Result [facility] Jaki Cruz MD POINT OF CARE TEST ENTER/E DIT ORDERABLES Final Result * Strep A Nucleic Acid (05/26/2024 5:39 PM EST) [facility] IDNOW SERIAL# [id number] [facility] Strep A Nucleic Acid Negative Negative [facility] Comment:All test results mus t [...] GENERAL ORDERABLES Final Result Performing Organization Address [facility] Co de Phone Number [facility] [address] [place] [phone] * (ABNORMAL) SARS-CoV-2 RNA, Influenza A/B, and RSV RNA, Ql NAAT (05/26/2024 5:39 PM EST) Influenza A PCR POSITIVE(A) Negative [facility] Influenza B PCR NEGATIVE Negative [facility] Resp Syncy Virus RNA Qual PCR NEGATIVE Negative [facility] SARS COV2 PCR NEGATIVE Negative [facility] Comment:All test results mus t [...] use by authorized laboratories.Testing performed on the [employer] GeneXpert utilizingreal-time RT-PCR.All SARS CoV2 and positive influenza A/B results arereported to [facility]. 05/26/2024 5:39 PM EST 05/26/2024 5:46 PM EST us Generic External Data Provider LAB MICROBIOLOGY - GENERAL ORDERABLES Final Result Performing Organization Address [facility] Co de Phone Number [facility] [address] [place] [phone] * Pap Smear (08/05/2023 3:15 PM EDT) 08/05/2023 3:15 PM EDT 08/07/2023 1:00 PM EDT Narrative [facility] - 08/18/2023 1:17 PM EDT ----- ------- Name: Cleo Rock ? Age/Sex: 32/F ? : 1990 Unit#: [id number] ?? Attend Dr: Amaris Salgado CNM ?Re08/05/23 ?Status: DEP REF ? Location: HO.LNP ?Disch: ? ----- ------- SPEC : [id number] ? RECD: 08/07/23-1300 ? STATUS: ??SOUT ? REQ NUM: [id number] ? MEAGAN: 08/05/23-5 ? SUBM DR: Amaris Salgado CNM ? ENTERED: ??08/07/23-0878 ?SP TYPE: Pap Smr ?OTHR DR: Marisa [...] 66, 68) ?? HPV testing performed by [employer], [place], [place]. ??See reference laboratory ?? portion of the EMR for entire report. ?Clinical Information LMP: 07/17/23 Previous PAP test: 09/17/17, WNL ? Material Received ?? ThinPrep-Cervical Copies To: ?? Marisa Livingston MD ?? [address] [facility] ?? [place] [id number] ? Amaris Salgado CNM ?? [address] [place] [address] [address] ?? [place] [address] ?? [phone] ----- ------- Signed (signature on file) IDANIA Hutchinson (ASCP) 04/01/24 1317 ? ----- ------- ? END OF REPORT ? Generic External Data Provider LAB CYTOLOGY CRISTAEduardo UGARTE Final Result Performing Organization Address [place]/[facility] de Phone Number [facility] [address] [place] [phone] * HIV Ab/Ag (IRAJ SHELDON) (12/09/2022 1:30 PM EDT) [facility] HIV AB/AG Nonreactive Nonreactive [facility] Comment:HIV-1 p24 Ag and/or HIV-1/HIV-2 Ab not detected.A test result that is nonreactive does not exclude thepossibility of exposure to or infection with HIV-1 and/orHIV-2. Nonreactive results in this assay for individualswith prior exposure to HIV-1 and/or HIV-2 may be due toantigen and antibody levels that are below the limit ofdetection of this assay.The Davis Irrigation Supervisor HIV Ag/Ab Combo assay result andsupplemental assay results should be interpreted inconjunction with the patient's clinical presentation,history and other laboratory results. If the results areinconsistent with clinical evidence, additional testing issuggested to confirm the result. 12/09/2022 1:30 PM EDT 12/09/2022 4:12 PM EDT Marisa Livingston MD LAB BLOOD ORDERABLES Fin al Result Performing Organization Address [place]/[facility] de Phone Number [facility] [address] [place] [phone] * Lipid Panel, Standard (12/09/2022 1:30 PM EDT) Triglycerides 56 mg/dL [facility] Comment:Desirable Triglyceri de: less than 150 mg/dLBorderline High Triglyceride 150-199 mg/dLHigh Triglyceride: 200-499 mg/dLVery High Triglyceride: greater than or equal to 5OO mg/dL Cholesterol 114 mg/dL [facility] Comment:Desirable Cholestero l: less than 200 mg/dLBorderline High Cholesterol: 200-239 mg/dLHigh Cholesterol: greater than 239 mg/dL LDL Cholesterol Calculated 65 mg/dl [facility] Comment:Desirable LDL: less than 100 mg/dLNear Optimal/Above Optimal LDL: 110- 129 mg/dLBorderline High LDL: 130-159 mg/dLHigh LDL: 160-189 mg/dLVery High LDL: greater than or equal to 190 mg/dL HDL Cholesterol 38 mg/dL [facility] Comment:Desirable HDL: great er than 40 mg/dL Note: This HDL assay may give artificially low results in patients with liver disease. 12/09/2022 1:30 PM EDT 12/09/2022 4:12 PM EDT us Marisa Livingston MD LAB BLOOD ORDERABLES Fin al Result [facility] [address] [place] [phone] from Last 3 Months or Most Recently Relevant to Health Maintenance Insurance [facility] C3 DENTAL-[facility] MEDICAID STAND ADULT Care Teams Director Of Claims Relationship Specialty Start Date End Date Marisa Livingston MD [address] [place] [address] PCP - General Family Medicine 03/12/19
--- OUTSIDE RECORDS SUMMARY | 2024-06-18 12:19 | XMS_ITS | Encounter Summary ---
Author Organization [employer] Address 75 [facility] 7 [place] [address] Care Team Providers Care Benefit Director Name Role Phone Marisa Livingston MD Primary Care Provider + Reason for Visit * Reason Onset Date Comments Nurse Triage 06/10/2024 Encounter Details Date Type Department Care Team ([facility] st Contact Info) Description 06/10/2024 Telephone [facility] [address] [place] [address] Marisa Livingston MD [address] [place] [address] Nurse Triage Social History Tobacco Use Types [...] 9:15 AM EST TC placed to Cleo [phone] in regards to below message. Patient reports she did not go to the ED yesterday because her son fell and she had to bring her son to the hospital d/t needing stitches.Patient reports she plans to come to the [facility] today. Patient reports she is experiencing SOB with exertion. Patient reports she recently had flu (diagnosed at [facility]) however does not feel these s/s are [...] call. Patient reports she will come to [facility] today katarina evaluated. Patient to f/u PRN. * Telephone Encounter - Dayami Bradshaw LPN - 06/10/2024 9:18 AM EST Triage call returned to patient with BLS Jeramie [phone]. Patient calling with shortness of breath. Speaking in short interrupted sentences slight cough and increased shortness of breath with exertion. Has done nebulizer treatment with no improvement. Was seen in [facility] 05/26/24 with similar symptoms and patient confirms [...] in agreement with plan. Will return to [facility] ED now. Forwarded to PCP and team [...] caller accepted this outcome. Contact pt at [phone] documented in this encounter Plan of Treatment Upcoming Encounters Date Type Department Care Team (Late st Contact Info) Description 07/02/2024 12:15 PM EST Office Visit [facility] [address], [place] [phone] Marisa Livingston MD [address] [place], [place] [phone] 07/13/2024 3:30 PM EST Office Visit [facility] [address], [place] [phone] Marisa Livingston MD [address] [place] [address] documented as of this encounter Visit Diagnoses Not on filedocumented in this encounter Additional Health Concerns Assessment Noted Time PHQ-9 Depression Total Score: 17 024 9:31 AM EST documented as of this encounter Care Teams Benefit Director Relationship Specialty Start Date End Date Marisa Livingston MD [address] [place] [phone] PCP - General Family Medicine 03/12/19 documented as of this encounter
--- OUTSIDE RECORDS SUMMARY | 2024-06-18 12:19 | XMS_ITS | Encounter Summary ---
Author Organization [employer] Address 75 [facility] 7 [place] [address] Care Team Providers Care Delivery Room Clerk Name Role Phone Marisa Livingston MD Primary Care Provider + Reason for Visit * Reason Onset Date Comments Nurse Triage 05/26/2024 Encounter Details Date Type Department Care Team ([facility] st Contact Info) Description 05/26/[address] [facility] [address] [place] [address] Marisa Livingston MD [address] [place] [address] Nurse Triage Social History Tobacco Use Types [...] pt to triage, spoke to pt through [employer] Maintenance Supervisor. pt states 2 days duration of congestion, [...] worse The caller accepted this outcome. ( Luxembourgish speaker) documented in this encounter Plan of Treatment Upcoming Encounters Date Type Department Care Team (Late st Contact Info) Description 07/02/2024 12:15 PM EST Office Visit [facility] [address] [place] [phone] Marisa Livingston MD [address] [place] [address] 07/13/2024 3:30 PM EST Office Visit [facility] [address] [place] [address] Marisa Livingston MD [address] [place] [phone] documented as of this encounter Visit Diagnoses Not on filedocumented in this encounter Additional Health Concerns Assessment Noted Time PHQ-9 Depression Total Score: 17 024 9:31 AM EST documented as of this encounter Care Teams Delivery Room Clerk Relationship Specialty Start Date End Date Marisa Livingston MD [address] [place] [phone] PCP - General Family Medicine 03/12/19 documented as of this encounter
--- OUTSIDE RECORDS SUMMARY | 2024-06-18 12:19 | XMS_ITS | Encounter Summary ---
Author Organization [employer] Address [address] [facility] [address] [address] 7t [place] [address] Care Team Providers Care Die Engraver Name Role Phone Marisa Livingston MD Primary Care Provider + Encounter Details Date Type Department Care Team (Late st Contact Info) Description 06/18/2024 Orders Only GENERIC EXTERNAL DATA DEPARTMENT Provider, Generic External Data Social History Tobacco Use Types Packs/Day Years [...] t he electric, gas, oil or water [employer] threatened to shut off services in your [...] Description 07/02/2024 12:15 PM EST Office Visit [facility] MEDICINE [address] [place] [address] [phone] Marisa Livingston MD [address] [place] [phone] 07/13/2024 3:30 PM EST Office Visit [facility] MEDICINE [address] [place] [phone] Marisa Livingston MD [address] [place], [place] [phone] documented as of this encounter Procedures Procedure Name Priority Date/Time Associated Diagnosis Comments XR CHEST 2 VIEWS Routine 06/18/2024 11:0 6 AM EST INFLUENZA A B2 ID NOW (DAVIS) Routine 06/18/2024 10:52 AM EST COVID-19 ID NOW (DAVIS) Routine 06/18/2024 10:52 AM EST CBC WITH AUTO DIFFERENTIAL Routine 06/18/2024 10:52 AM EST PROTHROMBIN TIME-INR Routine 06/18/2024 10:52 AM EST BASIC METABOLIC PANEL Routine 06/18/2024 10:52 AM EST documented in this encounter Results * XR Chest 2 Views (06/18/2024 11:06 AM EST) Anatomical Region Laterality Modality Chest Radiographic Angelita ging 06/18/2024 11:0 6 AM EST Narrative 06/18/2024 11:19 AM EST ? [facility] ?[address] ?[place] [address] ?XRay Report ? Signed ? Patient: Cleo Rock ?MR#: ?? [id number] ? : 1990 ?Acct:[id number] ? Age/Sex: 33 / F ?ADM Date: 06/18/24 ? Loc: HO.ED ? Attending Dr: ? Ordering Physician: Bay Christina ?? Date of Service: 06/18/24 ?? Procedure(s): XR chest 2V ?? Accession Number(s): [id number] ? cc: Marisa Livingston MD; Bay Christina [...] DD/ 1106 ? TD/TT: 06/18/24 1113 ? Quality System Manager: ? 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 Donjackie, Image - 06/18/[address] [address] XRay Report Signed Patient: Luis DinoFlynnCleo JMR#: [id number] : 1990Acct:[id number] Age/Sex: 33 / FADM Date: 06/18/24 Loc: HO.ED Attending Dr: Ordering Physician: Bay Christina Date of Service: 06/18/24 Procedure(s): XR chest 2V Accession Number(s): [id number] cc: Marisa Livingston MD; Bay Christina EXAMINATION: XR CHEST CLINICAL INFORMATION: Cough COMPARISON: June 17, 2024 TECHNIQUE: 2 views of the chest were obtained. FINDINGS: No consolidation, pleural effusion or pneumothorax. No hyperinflation. Cardiomediastinal silhouette is normal. Osseous structures are intact. XR/XR chest 2V IMPRESSION: No acute airspace disease. Electronically signed by: Fredy Ruiz MD 06/18/2024 11:16 AM EST RP Dictated By: Fredy Marnio MD Signed By: <Electronically signed by Fredy Sun MDin OV> 06/18/24 1116 DD/ 1106 TD/TT: 06/18/24 1113 Quality System Manager: [facility] External Provider IMG XR PROCEDURES Final Result * Influenza A B2 ID NOW (Davis) (06/18/2024 10:52 AM EST) IDNOW SERIAL# [id number] [facility] Influenza A Negative Negative [facility] Influenza B2 Negative Negative [facility] Influenza A B2 Note See Note [facility] Comment:The Davis ID NOW In [...] 2 AM EST 06/18/2024 10:56 AM EST Generic External Data Provider LAB MICROBIOLOGY - GENERAL ORDERABLES Final Result [facility] [address] [place] [address] [phone] * COVID-19 ID NOW (DAVIS) (06/18/2024 10:52 AM EST) IDNOW SERIAL# [id number] [facility] COVID-19 TEST Negative Negative [facility] COVID-19 NOTE See Note [facility] Comment: Results are for the identification of SARS-CoV2 RNA. TheSARS-CoV2 RNA is generally detectable in respiratory samplesduring the acute phase of infection. Positive results areindicative of the presence of SARS-CoV-2 RNA; clinicalcorrelation with patient history and other diagnosticinformation is necessary to determine patient infectionstatus. Positive results do not rule out bacterial infectionor co- infection with other viruses.Testing facilities within the [facility] and itsterritories are required to report all [...] use by authorized laboratories.Testing performed on the Davis ID NOW utilizing NAAT. 06/18/2024 10:5 2 AM EST 06/18/2024 10:56 AM EST us Generic External Data Provider LAB MOLECULAR DELMI GNOSTICS ORDERABLES Final Result [facility] [address] [place] [phone] * (ABNORMAL) Basic Metabolic Panel (06/18/2024 10:52 AM EST) Sodium 144 135 - 145 mmol/L [facility] Potassium 3.7 3.3 - 5.1 mmol/L [facility] Chloride 112(H) 96 - 108 mmol/L [facility] Carbon Dioxide 24 22 - 29 mmol/L [facility] Anion Gap 12 12 - 20 [facility] Urea Nitrogen (BUN) 9 9 - 16 mg/dL [facility] Creatinine, Serum 0.61 0.5 - 1.4 mg/dL [facility] Creatinine Clr Calc Pharmacy 135.9 [facility] Comment:Provided height and weight: 162.56 cm,85.2 kg.eGFR (calculated from the MDRD study equation) and eCrCl(calculated from the Cockcroft-Gault equation) are based ondifferent parameters and may not yield comparable results.If eCrCl result is absurd, please check patient'sheight/weight. Estimated Glomerular Filt Rate >60 [facility] Comment:Chronic Kidney Disea se: Estimated GFR < 60 mL/min/1.34t0Ggkdnl Kidney Disease: Estimated GFR < 15 mL/min/1.73m2 Glucose 88 60 - 115 mg/dL [facility] Calcium 9.2 8.4 - 10.2 mg/dL [facility] 06/18/2024 10:5 2 AM EST 06/18/2024 10:56 AM EST us Generic External Data Provider LAB BLOOD ORDERAB LES Final Result Performing Organization Address City/State/[facility] Co de Phone Number [facility] [address] [place] [phone] * (ABNORMAL) Prothrombin Time-INR (06/18/2024 10:52 AM EST) Prothrombin Time 13.5(H) 10.9 - 12.4 SEC [facility] INTERNATIONAL NORM RATIO 1.2(H) 0.9 - 1.1 [facility] Comment:INTERNATIONAL NORMAL IZED RATIO (INR) [...] Provider LAB BLOOD ORDERAB LES Final Result [facility] [address] [place] [phone] [phone] * (ABNORMAL) CBC auto differential (06/18/2024 10:52 AM EST) White Blood Count 6.7 4.8 - 10.8 X10*3/uL [facility] Red Blood Count 4.66 4.20 - 5.50 X10*6/uL [facility] Hemoglobin 9.1(L) 12.0 - 16.0 g/dl [facility] Hematocrit 31.5(L) 37.0 - 47.0 % [facility] Mean Corpuscular Volume 67.6(L) 80.0 - 98.0 fL [facility] Mean Corpuscular Hemoglobin 19.5(L) 27.0 - 33.0 pg [facility] Mean Corpuscular HGB Conc 28.9(L) 31.0 - 35.0 g/dl [facility] Red Cell Distribution Width 19.1(H) 11.0 - 16.0 % [facility] Platelet Count 334 160 - 400 X10*3/uL [facility] Mean Platelet Volume 9.0(L) 9.4 - 12.3 fL [facility] Neutrophils Percent Auto 63.8 45 - 73 % [facility] Imm Gran Pct Auto 0.1 0.0 - 0.4 % [facility] Lymphocytes Percent Auto 24.5 20 - 40 % [facility] Monocytes Percent Auto 6.1 2 - 11 % [facility] Eosinophils Percent Auto 5.2(H) 0 - 4 % [facility] Basophils Percent Auto 0.3 0 - 2 % [facility] NRBC Pct Auto 0.0 0.0 - 0.2 /100WBC [facility] Neutrophils Absolute Auto 4.3 2.0 - 8.3 x10*3/uL [facility] Imm Gran Abs Auto 0.01 0.00 - 0.03 X10*3/uL [facility] Lymphocytes Absolute Auto 1.6 1.2 - 4.9 X10*3/uL [facility] Monocytes Absolute Auto 0.4 0.1 - 1.2 X10*3/uL [facility] Eosinophils Absolute Auto 0.4 0.0 - 0.4 X10*3/uL [facility] Basophils Absolute Auto 0.0 0.0 - 0.2 X10*3/uL [facility] NRBC Abs Auto 0.000 0.0 - 0.012 X10*3/uL [facility] 06/18/2024 10:5 2 AM EST 06/18/2024 10:56 AM EST us Generic External Data Provider LAB BLOOD ORDERAB LES Final Result Performing Organization Address City/State/[facility] Co de Phone Number [facility] [address] [place] [phone] documented in this encounter Visit Diagnoses Not on filedocumented in this encounter Additional Health Concerns Assessment Noted Time PHQ-9 Depression Total Score: 17 024 9:31 AM EST documented as of this encounter Care Teams Die Engraver Relationship Specialty Start Date End Date Marisa Livingston MD [address] [place] [phone] PCP - General Family Medicine 03/12/19 documented as of this encounter
--- OUTSIDE RECORDS SUMMARY | 2024-06-18 12:19 | XMS_ITS | Encounter Summary ---
Author Organization [employer] Address 75 [facility] [address]t [place] [address] Care Team Providers Care Physical Therapy Aide Name Role Phone Marisa Livingston MD Primary Care Provider + Encounter Details Date Type Department Care Team (Late st Contact Info) Description 05/26/2024 Orders Only [facility] External Provider, [facility] Social History Tobacco Use Types Packs/Day Years [...] Description 07/02/2024 12:15 PM EST Office Visit [facility] MEDICINE [address] [place] [address] [phone] Marisa Livingston MD [address] [place] [phone] 07/13/2024 3:30 PM EST Office Visit [facility] MEDICINE [address] [place] [phone] Marisa Livingston MD [address] [place] [address] [phone] documented as of this encounter Procedures Procedure [...] PM EST) Influenza A PCR POSITIVE(A) Negative [facility] Influenza B PCR NEGATIVE Negative [facility] Resp Syncy Virus RNA Qual PCR NEGATIVE Negative [facility] SARS COV2 PCR NEGATIVE Negative [facility] Comment:All test results mus t [...] use by authorized laboratories.Testing performed on the [employer] GeneXpert utilizingreal-time RT-PCR.All SARS CoV2 and positive influenza A/B results arereported to [facility]. 05/26/2024 5:39 PM EST 05/26/2024 5:46 PM EST Generic External Data Provider LAB MICROBIOLOGY - GENERAL ORDERABLES Final Result Performing Organization Address [facility] de Phone Number [facility] [address] [place] [phone] * Strep A Nucleic Acid (05/26/2024 5:39 PM EST) IDNOW SERIAL# [id number] [facility] Strep A Nucleic Acid Negative Negative [facility] Comment:All test results mus [...] GENERAL ORDERABLES Final Result Performing Organization Address [facility] de Phone Number [facility] [address] [place] [phone] * XR Chest 2 Views (05/26/2024 4:25 PM EST) Anatomical Region Laterality Modality Chest Radiographic Angelita ging 05/26/2024 4:25 PM EST Narrative 05/26/2024 4:26 PM EST ? [facility] ?[address] ?[place], [place] [address] ?XRay Report ? Signed ? Patient: Cleo Rock ?MR#: ?? [id number] ? : 1990 ?Acct:[id number] ? Age/Sex: 33 / F ?ADM Date: 05/26/24 ? Loc: HO.ED ? Attending Dr: ? Ordering Physician: Ilene Sethi ?? Date of Service: 05/26/24 ?? Procedure(s): XR chest 2V ?? Accession Number(s): [id number] ? cc: [facility]; Ilene Sethi ? CLINICAL HISTORY: sob [...] in OV> ? 05/26/24 1626 ? DD/ ? TD/TT: 05/26/241624 ? Extruder Operator Horizontal: ? 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 Armando, Stephania - 05/26/[address] [address] XRay Report Signed Patient: Cleo Rock JMR#: [id number] : 1990Acct:[id number] Age/Sex: 33 / FADM Date: 05/26/24 Loc: HO.ED Attending Dr: Ordering Physician: Ilene Sethi Date of Service: 05/26/24 Procedure(s): XR chest 2V Accession Number(s): [id number] cc: [facility]; Pouliot,Ilene PA CLINICAL HISTORY: sob Chest Radiographs, 2 views [...] 05/26/24 1626 DD/ 1625 TD/TT: 05/26/24 1625 Extruder Operator Horizontal: [facility] External Provider IMG XR PROCEDURES Edited Result - Final documented in this encounter Visit Diagnoses Not on filedocumented in this encounter Additional Health Concerns Assessment Noted Time PHQ-9 Depression Total Score: 17 024 9:31 AM EST documented as of this encounter Care Teams Physical Therapy Aide Relationship Specialty Start Date End Date Marisa Livingston MD [address] [place] [phone] PCP - General Family Medicine 03/12/19 documented as of this encounter
--- OUTSIDE RECORDS SUMMARY | 2024-06-18 12:19 | XMS_ITS | Encounter Summary ---
Author Organization [employer] Address [address] [place] [address], [place] [address] Care Team Providers Care Bull Rider Name Role Phone Marisa Livingston MD Primary Care Provider + Reason for Referral * Consultation (Routine) - Authorized Specialty Diagnoses / Procedures Referred By Contac t Referred To Contact Hematology and Oncology Diagnoses Chronic anemia Jaki Cruz MD [address] [place] [phone] Phone: tel: fax: [address] Phone: tel: fax: Referral ID Status Reason Start Date Expiration Date Visits Requested Visits Authorized [id number] Authorized Specialty Services Required 06/17/2024 06/17/2025 6 6 Encounter Details Date Type Department Care Team (Late st Contact Info) Description 06/17/2024 Orders Only [facility] [address] [place] [address] [phone] Jaki Cruz MD [address] [place] [address] [phone] Chronic anemia (Primary Dx) Social History Tobacco Use Types [...] Description 07/02/2024 12:15 PM EST Office Visit [facility] MEDICINE [address] [place] [phone] Marisa Livingston MD [address] [place] [phone] 07/13/2024 3:30 PM EST Office Visit [facility] MEDICINE [address] [place] [phone] Marisa Livingston MD [address] [place] [phone] Scheduled Referrals Name Type Priority Associated Diagnoses Order Schedule Referral to Hematology / Oncology Outpatient Referral Routine Chronic anemia Expected: 06/17/2024 (Approximate), Expires: 06/17/2025 documented as of this encounter Visit Diagnoses Diagnosis Chronic anemia- Primary Unspecified anemia documented in this encounter Additional Health Concerns Assessment Noted Time PHQ-9 Depression Total Score: 17 024 9:31 AM EST documented as of this encounter Care Teams Bull Rider Relationship Specialty Start Date End Date Marisa Livingston MD [address] [place] [phone] PCP - General Family Medicine 03/12/19 documented as of this encounter
--- OUTSIDE RECORDS SUMMARY | 2024-06-18 12:19 | XMS_ITS | Encounter Summary ---
Author Organization [employer] Address 75 [facility] 7 [place] [address] Care Team Providers Care Steel Grinder Name Role Phone Marisa Livingston MD Primary Care Provider + Reason for Visit * Reason Comments Med Refill Encounter Details Date Type Department Care Team ([facility] st Contact Info) Description 03/04/2024 Refill [facility] [address] [place] [address] Marisa Livingston MD [address] [place] [address] Social History Tobacco Use Types Packs/Day Years [...] Description 07/02/2024 12:15 PM EST Office Visit [facility] [address] [place] [phone] Marisa Livingston MD [address] [place] [phone] 07/13/2024 3:30 PM EST Office Visit [facility] [address] [place] [phone] Marisa Livingston MD [address] [place] [phone] documented as of this encounter Visit Diagnoses Not on filedocumented in this encounter Additional Health Concerns Assessment Noted Time PHQ-9 Depression Total Score: 17 024 9:31 AM EST documented as of this encounter Care Teams Steel Grinder Relationship Specialty Start Date End Date Marisa Livingston MD [address] [place] [phone] PCP - General Family Medicine 03/12/19 documented as of this encounter
--- OUTSIDE RECORDS SUMMARY | 2024-06-18 12:19 | XMS_ITS | Encounter Summary ---
Author Organization [employer] Address 75 [facility] 7 [place] [address] Care Team Providers Care Rehab Assistant Name Role Phone Marisa Livingston MD Primary Care Provider + Reason for Visit * Reason Onset Date Comments July recall 05/20/2024 Encounter Details Date Type Department Care Team ([facility] st Contact Info) Description 05/20/2024 Telephone [facility] MEDICINE [address] [place] [address] Marisa Livingston MD [address] [place] [address] July recall Social History Tobacco Use Types [...] Description 07/02/2024 12:15 PM EST Office Visit [facility] MEDICINE [address] [place] [phone] Marisa Livingston MD [address] [place] [phone] 07/13/2024 3:30 PM EST Office Visit [facility] MEDICINE [address] [place] [phone] Marisa Livingston MD [address] [place] [phone] documented as of this encounter Visit Diagnoses Not on filedocumented in this encounter Additional Health Concerns Assessment Noted Time PHQ-9 Depression Total Score: 17 024 9:31 AM EST documented as of this encounter Care Teams Rehab Assistant Relationship Specialty Start Date End Date Marisa Livingston MD [address] [place] [phone] PCP - General Family Medicine 03/12/19 documented as of this encounter
--- OUTSIDE RECORDS SUMMARY | 2024-06-18 12:19 | XMS_ITS | Encounter Summary ---
Author Organization [employer] Address [address] [facility] 7 [place] [address] Care Team Providers Care Labor Relations Representative Name Role Phone Marisa Livingston MD Primary Care Provider + Reason for Visit * Reason Onset Date Comments Nurse Triage 06/04/2024 Encounter Details Date Type Department Care Team ([facility] st Contact Info) Description 06/04/2024 Telephone [facility] [address] [place] [address] Marisa Livingston MD [address] [place] [address] Nurse Triage Social History Tobacco Use Types [...] 3:17 PM EST TC placed to patient [phone] however no answer and RN unable to leave VM d/t VM being full. Patient to f/u PRN. * Telephone Encounter - Dominic Shearer - 06/08/2024 11:53 AM EST Tc from pt returning missed call , pt is requesting a callback at [phone] * Telephone Encounter - Gem Aguila RN - 06/08/2024 9:52 AM EST RN reviewed [facility]. Patient did not go to either facility. TC placed to patient [phone] however no answer and VM is full. RN unable to leave VM. TC placed to secondary number [phone] however number is OOS. RN unable to leave VM. TC placed to spouse [phone] however the service you are attempting to use has been restricted or is unavailable . RN unable to leave VM. Patientto f/u PRN. * Telephone Encounter - Dedra Thomas RN - 06/04/2024 10:06 AM EST Sent to team for [facility] status check PRN. * Telephone Encounter - Dedra Thomas RN - 06/04/2024 9:58 AM EST Per [facility] notes, pt positive for influenza A. Given [...] advised of disposition, agrees to return to [facility] for evaluation. Rev iewed home care [...] ED visit on : Date: 05/26/24 Hospital: [facility] Seen for: Flu and asthma Symptomatic Yes *if yes message should go to Triage Contact pt at [phone] (kyrgyz) documented in this encounter Plan of Treatment Upcoming Encounters Date Type Department Care Team (Late st Contact Info) Description 07/02/2024 12:15 PM EST Office Visit [facility] [address] [place] [address] Marisa Livingston MD [address] [place], [place] [phone] 07/13/2024 3:30 PM EST Office Visit [facility] [address] [facility], [place] [phone] Marisa Livingston MD [address] [place] [address] [phone] documented as of this encounter Visit Diagnoses Not on filedocumented in this encounter Additional Health Concerns Assessment Noted Time PHQ-9 Depression Total Score: 17 024 9:31 AM EST documented as of this encounter Care Teams Labor Relations Representative Relationship Specialty Start Date End Date Marisa Livingston MD [address] [place] [address] [phone] PCP - General Family Medicine 03/12/19 documented as of this encounter
--- OUTSIDE RECORDS SUMMARY | 2024-06-18 12:20 | XMS_ITS | Encounter Summary ---
Author Organization [employer] Address [address] [place] [address] Care Team Providers Care Dealer Card Room Name Role Phone Marisa Livingston MD Primary Care Provider + Encounter Details Date Type Department Care Team (Late st Contact Info) Description 06/27/2022 Abstract [facility]ULT [facility] [address] [place] [address] Jeramie Treadwell DDS [address] [place] [address] Social History Tobacco Use Types Packs/Day Years [...] Description 07/02/2024 12:15 PM EST Office Visit [facility] [address] [place] [address] Marisa Livingston MD [address] [place] [address] 07/13/2024 3:30 PM EST Office Visit [facility] [address] [place], [place] [phone] Marisa Livingston MD [address] [place] [address] [phone] documented as of this encounter Visit Diagnoses Not on filedocumented in this encounter Care Teams Dealer Card Room Relationship Specialty Start Date End Date Marisa Livingston MD [address] [place] [address] [phone] PCP - General Family Medicine 03/12/19 documented as of this encounter
--- OUTSIDE RECORDS SUMMARY | 2024-06-18 12:20 | XMS_ITS | Encounter Summary ---
Author Organization [employer] Address [address] [facility] [address] 7 [place] [address] Care Team Providers Care Service Coordinator Name Role Phone Marisa Livingston MD Primary Care Provider + Reason for Visit * Reason Onset Date Comments Appointment 07/12/2022 Encounter Details Date Type Department Care Team ([facility] st Contact Info) Description 07/12/2022 Telephone [facility] ADULT D[facility] [address] [place] [address] Yeison Arnold, DMD [address] [place] [address] Appointment Social History Tobacco Use Types Packs/Day [...] Description 07/02/2024 12:15 PM EST Office Visit [facility] MEDICINE [address] [place] [address] [phone] Marisa Livingston MD [address] [place] [phone] 07/13/2024 3:30 PM EST Office Visit [facility] MED[facility] [address] [place] [address] Marisa Livingston MD [address] [place] [phone] documented as of this encounter Visit Diagnoses Not on filedocumented in this encounter Additional Health Concerns Assessment Noted Time PHQ-9 Depression Total Score: 4 07/03/19 23 10:39 AM EST documented as of this encounter Care Teams Service Coordinator Relationship Specialty Start Date End Date Marisa Livingston MD [address] [place] [phone] PCP - General Family Medicine 03/12/19 documented as of this encounter
--- OUTSIDE RECORDS SUMMARY | 2024-06-18 12:20 | XMS_ITS | Encounter Summary ---
Author Organization [employer] Address [address] [facility] [address] 7 [place] [address] Care Team Providers Care Flux Plant Operator Name Role Phone Marisa Livingston MD Primary Care Provider + Encounter Details Date Type Department Care Team ([facility] Contact Info) Description 07/19/2022 Abstract [facility] ADULT DENTAL [address] [place] [address] Berlin Hagen, DMD [address] [place] [address] Social History Tobacco Use Types Packs/Day Years [...] Department Care Team (Late Contact Info) Description 07/02/2024 12:15 PM EST Office Visit [facility] MED[facility]INE [address] [place] [address] Marisa Livingston MD [address] [place] [address] 07/13/2024 3:30 PM EST Office Visit [facility] [address] [place] [address] Marisa Livingston MD [address] [place] [address] documented as of this encounter Visit Diagnoses Not on filedocumented in this encounter Additional Health Concerns Assessment Noted Time PHQ-9 Depression Total Score: 4 07/03/19 23 10:39 AM EST documented as of this encounter Care Teams Flux Plant Operator Relationship Specialty Start Date End Date Marisa Livingston MD [address] [place] [phone] PCP - General Family Medicine 03/12/19 documented as of this encounter
--- OUTSIDE RECORDS SUMMARY | 2024-06-18 12:20 | XMS_ITS | Encounter Summary ---
Author Organization [employer] Address [address] [place] [address], [place] [address] Care Team Providers Care Meat Team Member Name Role Phone Marisa Livingston MD Primary Care Provider + Encounter Details Date Type Department Care Team (Latest Contact Info) Description 03/26/2019 Abstract [facility] CONVERSIONS Dental, Provider, DDS [...] Description 07/02/2024 12:15 PM EST Office Visit [facility] MED[facility]INE [address] [place] [address] Marisa Livingston MD [address] [place] [phone] 07/13/2024 3:30 PM EST Office Visit [facility] [address] [place] [address] Marisa Livingston MD [address] [place] [phone] documented as of this encounter Visit Diagnoses Not on filedocumented in this encounter Care Teams Meat Team Member Relationship Specialty Start Date End Date Marisa Livingston MD [address] [place] [phone] PCP - General Family Medicine 03/12/19 documented as of this encounter
--- OUTSIDE RECORDS SUMMARY | 2024-06-18 12:20 | XMS_ITS | Encounter Summary ---
Author Organization [employer] Address [address] [place] [address] [address] [address] Care Team Providers Care Arrow Point Attacher Name Role Phone Marisa Livingston MD Primary Care Provider + Encounter Details Date Type Department Care Team (Latest Contact Info) Description 02/27/2022 Abstract [facility] CONVERSIONS Dental, Provider, DDS Social History [...] Description 07/02/2024 12:15 PM EST Office Visit [facility] MEDICINE [address] [place] [phone] Marisa Livingston MD [address] [place] [phone] 07/13/2024 3:30 PM EST Office Visit [facility] MEDICINE [address] [place] [phone] Marisa Livingston MD [address] [place] [phone] documented as of this encounter Visit Diagnoses Not on filedocumented in this encounter Care Teams Arrow Point Attacher Relationship Specialty Start Date End Date Marisa Livingston MD [address] [place] [phone] PCP - General Family Medicine 03/12/19 documented as of this encounter
[2024-06-18 13:17] VITALS: BP 149/81; PULSE 84; RESP 16; TEMP 36.2; O2SAT 100
[2024-06-18 13:19] LABS: D Dimer High Sensitivity 232 NG/ML
[2024-06-18 15:15] LABS: HCG Quantitative < 2 mIU/mL
[2024-06-18] MEDS: iohexoL 350 MG/ML 100 ML INFUS..BTL 65 ML IV (15:46)
[2024-06-18 17:23] LABS: B Type Natriuretic Peptide 11 pg/mL (<100); Troponin-I High Sensitivity < 2.7 ng/L (<3.5-17.0)
[2024-06-18 18:15] VITALS: BP 114/63; PULSE 84; RESP 16; TEMP 36.6; O2SAT 100
[2024-06-18] MEDS: Albuterol Sulfate 2.5 MG/0.5 ML VIAL.NEB 5 MG INHALE (18:49)
[2024-06-18 18:52] VITALS: PULSE 84; RESP 18; O2SAT 99
[2024-06-18 19:45] VITALS: BP 114/78; PULSE 84; RESP 18; TEMP -17.7; TEMP 0; O2SAT 100
== END 2024-06-18 19:46 | disposition home or self-care (01) ==
PROVIDERS: Physician Assistant; Physician Assistant Medical; Emergency Provider Emergency Medicine; PCP Internal Medicine
DX: R06.02 Shortness of breath (principal); R94.31 Abnormal electrocardiogram [ECG] [EKG]; Z79.899 Other long term (current) drug therapy; Z87.891 Personal history of nicotine dependence; Z11.52 Encounter for screening for COVID-19
CPT/HCPCS: 71046; 71275; 80048; 83880; 84484; 84702; 85025; 85379; 85610; 87502; 87635; 93005; 94640; 99284; 99285; Q9967

== ENCOUNTER → 2024-06-18 10:34 | Outpatient (BNV) | payer MEDICAID, SELFPAY | PROVIDERS: PCP Internal Medicine; Visit Provider Radiology Diagnostic Radiology | DX: I51.7 Cardiomegaly (principal); R05.9 Cough, unspecified; I28.9 Disease of pulmonary vessels, unspecified | CPT/HCPCS: 71046; 71275 ==

== ENCOUNTER → 2024-06-18 10:34 | Outpatient (BNV) | payer MEDICAID, SELFPAY | PROVIDERS: Emergency Provider Emergency Medicine; PCP Internal Medicine; Visit Provider Internal Medicine | DX: R06.02 Shortness of breath (principal) | CPT/HCPCS: 93010 ==

== ENCOUNTER 2024-07-01 09:47 | Outpatient (AMB) | payer MEDICAID, SELFPAY ==
[2024-07-01 09:49] VITALS: BP 110/82; PULSE 94; O2SAT 100; BMI 32.4
--- NOTE | 2024-07-01 09:49 | A.OFFVIS_ITS ---
Vital Signs 07/01/24 09:49 Height 5 ft 4 in Weight 189 lb BMI 32.4 BP 110/82 Blood Pressure Location Lt brachial Position Sitting Pulse 94 Pulse Source Doppler Pulse Oximetry (%) 100 Oxygen Delivery Method Room Air Intake Visit Reasons: dyspnea/asthma Materials Assistant Required: Yes Materials Assistant Name: Mercedes Shearer Lawson Allergies latex Allergy (Verified 07/01/24 09:56) Rash HPI HPI dyspnea/asthma: Details: 33-year-old lady, nonsmoker, followed for underlying severe persistent asthma and environmental allergies. A she has been using Advair and albuterol MDI with suboptimal control of her symptoms. She was approved for Fasenra, however she only had 1 injection. With the last 2 months she has been having worsening dyspnea on exertion, orthopnea, wheezing, and lower extremity edema. [facility] Medical History Asthma Social History Household Members: Children Housing: House Alcohol intake: never Patient Tobacco Use Status: Former Tobacco user Female Reproductive History Menstrual Age of Menarche: 5 Review of Systems Const Denies daytime sleepiness, Denies excessive sweating, Denies fatigue, Denies fever(s), Denies lethargy, Denies malaise, Denies night sweats, Denies snoring and Denies weight loss Eyes Denies blurry vision and Denies itchy eyes ENT Denies nasal congestion, Denies post nasal drip, Denies sinus pain, Denies sinus pressure and Denies other ( Thrush) Card Denies chest pain, Denies pedal edema, Denies dyspnea, Reports dyspnea on exertion, Reports orthopnea and Denies paroxysmal nocturnal dyspnea Resp Denies cough, Denies hemoptysis, Denies excessive phlegm production, Denies dyspnea, Reports dyspnea on exertion, Denies snoring and Reports wheezing GI Denies abdominal pain and Denies heartburn Musc Denies myalgias, Denies arthralgias and Denies joint swelling Skin/Breast Denies rash Neuro Denies memory loss and Denies seizure-like activity Psych Denies abnormal sleep pattern, Denies anxiety and Denies memory loss Endo Denies excessive sweating, Denies fatigue and Denies heat intolerance Rick/Lymph Denies easy bruising Aller/Immun Denies itchy eyes, Denies seasonal rhinorrhea and Reports wheezing Physical Exam Vital Signs: Last Vital Signs Pulse 94 07/01/24 09:49 BP 110/82 07/01/24 09:49 Pulse Ox 100 07/01/24 09:49 Oxygen Delivery Method Room Air 07/01/24 09:49 BMI result Body Mass Index 32.4 Const General: no acute distress and alert Nutritional Appearance: not obese Orientation/consciousness: Other orientation findings ( oriented) HEENT Head: Yes atraumatic Eyes General: appearance normal, both eyes and all related structures Sclerae: sclerae normal EOM: EOMs intact bilaterally Neck Neck: Yes supple Lymphatic: no lymphadenopathy noted Resp Effort & Inspection: normal respiratory effort and no use of accessory muscles Auscultation: clear to auscultation bilaterally Cardio Rate: regular rate Rhythm: regular rhythm Heart sounds: no gallops, no murmurs and no rubs Skin General skin exam: other ( warm) Extrem General: No clubbing, No cyanosis and Yes edema (1+ bilateral) Assessment & Plan Assessment & Plan (1) Asthma: Code(s): J45.909 - Unspecified asthma, uncomplicated Category: Medical Plan: Baseline controlled on Advair and albuterol MDI/duo nebs. Continue current regimen. (2) Orthopnea: Code(s): R06.01 - Orthopnea Category: Medical Plan: With development of orthopnea, paroxysmal nocturnal dyspnea, lower extremity edema. Will start on diuretic and obtain 2D echocardiogram. Orders: Orders CA echo transthorac w con Today R06.09 - Other forms of dyspnea Medications: New furosemide 40 mg PO QAM 14 tabs 0RF Coding Level of Care Code Est Pt Level 4 (03267) Complex EM visit Add On G2211 Diagnoses Asthma J45.909 Orthopnea R06.01
--- OUTSIDE RECORDS SUMMARY | 2024-07-01 10:17 | XMS_ITS | Encounter Summary ---
Author Organization [employer] Address [address] [facility] 7 [place] [address] Care Team Providers Care Rivet Sticker Name Role Phone Marisa Livingston MD Primary Care Provider + Perez Vergara RN Unavailable [phone] Reason for Visit * Reason Comments Med Refill Encounter Details Date Type Department Care Team (Late st Contact Info) Description 05/27/2024 Refill [facility] MEDICINE [address] [place] [address] Marisa Livingston MD 230 [place] [address] Social History Tobacco Use Types Packs/Day Years [...] Description 07/02/2024 12:15 PM EST Office Visit [address] [address] Marisa Livingston MD [address] [place] [phone] 07/13/2024 3:30 PM EST Office Visit [address] [address] Marisa Livingston MD [address] [place] [phone] documented as of this encounter Visit Diagnoses Not on filedocumented in this encounter Additional Health Concerns Assessment Noted Time PHQ-9 Depression Total Score: 17 024 9:31 AM EST documented as of this encounter Care Teams Rivet Sticker Relationship Specialty Start Date End Date Marisa Livingston MD [address] [place] [phone] PCP - General Family Medicine 03/12/19 Perez Vergara RN [address] [place] [address] [employer] Machine Feeder 06/30/24 documented as of this encounter
--- OUTSIDE RECORDS SUMMARY | 2024-07-01 10:17 | XMS_ITS | Encounter Summary ---
Author Organization [employer] Address [address] [facility] [address] 7[address] [place] [address] Care Team Providers Care Software Development Leader Name Role Phone Marisa Livingston MD Primary Care Provider + Encounter Details Date Type Department Care Team ([facility] st Contact Info) Description 06/17/2024 Telephone [facility] [address] [place], [place] [phone] Jaki Cruz MD [address] [place] [address] Social History Tobacco Use Types Packs/Day Years [...] Office Visit [facility] MEDICINE [address] [place] [address] Marisa Livingston MD [address] [place] [address] 07/13/2024 3:30 PM EST Office Visit [facility] MED[facility] [address] [place] [address] Marisa Livingston MD [address] [place] [phone] documented as of this encounter Visit Diagnoses Not on filedocumented in this encounter Additional Health Concerns Assessment Noted Time PHQ-9 Depression Total Score: 17 024 9:31 AM EST documented as of this encounter Care Teams Software Development Leader Relationship Specialty Start Date End Date Marisa Livingston MD [address] [place] [phone] PCP - General Family Medicine 03/12/19 documented as of this encounter
--- OUTSIDE RECORDS SUMMARY | 2024-07-01 10:17 | XMS_ITS | Encounter Summary ---
Author Organization [employer] Address [address] [facility] [address] 7[address] [place] [address] Care Team Providers Care Machining Engineer Name Role Phone Marisa Livingston MD Primary Care Provider + Reason for Visit * Reason Onset Date Comments ED EXPECT 06/17/2024 Encounter Details Date Type Department Care Team ([facility] st Contact Info) Description 06/17/2024 Telephone [facility] [address] [place] [address] Bettie Garay RN ED EXPECT Social History [...] PM EST Call to expect placed to [facility] ED per Dr. Cruz. Patient seen in [facility] this afternoon for dyspnea on exertion. Labs significant for Hgb 8.8/ Hematocrit 30.7 and D-dimer 232. Advised ED triage that patient reports she will be coming tomorrow morning as she has no childcare. documented in this encounter Plan of Treatment Upcoming Encounters Date Type Department Care Team (Late st Contact Info) Description 07/02/2024 12:15 PM EST Office Visit [facility] MEDICINE [address] [place] [phone] Marisa Livingston MD [address] [place] [phone] 07/13/2024 3:30 PM EST Office Visit [facility] MEDICINE [address] [place] [address] Marisa Livingston MD [address] [place] [phone] documented as of this encounter Visit Diagnoses Not on filedocumented in this encounter Additional Health Concerns Assessment Noted Time PHQ-9 Depression Total Score: 17 024 9:31 AM EST documented as of this encounter Care Teams Machining Engineer Relationship Specialty Start Date End Date Marisa Livingston MD [address] [place] [phone] PCP - General Family Medicine 03/12/19 documented as of this encounter
--- OUTSIDE RECORDS SUMMARY | 2024-07-01 10:17 | XMS_ITS | Encounter Summary ---
Author Organization [employer] Address [address] [place] [address] Care Team Providers Care Publicity Expert Name Role Phone Marisa Livingston MD Primary [...] t he electric, gas, oil or water [employer] threatened to shut off services in your [...] Description 07/02/2024 12:15 PM EST Office Visit [facility] [address] [place] [address] [phone] Marisa Livingston MD [address] [place] [address] 07/13/2024 3:30 PM EST Office Visit [facility] [address] [place] [phone] Marisa Livingston MD [address] [place], [place] [phone] documented as of this encounter Procedures Procedure Name Priority Date/Time Associated Diagnosis Comments HIGH SENSITIVITY TROPONIN I Routine 06/18/2024 4:56 PM EST B TYPE NATRIURETIC PEPTIDE (BNP) Routine 06/18/2024 4:56 PM EST CTA CHEST PE PROTOCAL Routine 06/18/2024 3:34 PM EST XR CHEST 2 VIEWS Routine 06/18/2024 11:0 6 AM EST INFLUENZA A B2 ID NOW (DAVIS) Routine 06/18/2024 10:52 AM EST D DIMER HIGH SENSITIVITY Routine 06/18/2024 10:52 AM EST COVID-19 ID NOW (DAVIS) Routine 06/18/2024 10:52 AM EST CBC WITH AUTO DIFFERENTIAL Routine 06/18/2024 10:52 AM EST PROTHROMBIN TIME-INR Routine 06/18/2024 10:52 AM EST HCG, TOTAL, QN Routine 06/18/2024 10:52 AM EST BASIC METABOLIC PANEL Routine 06/18/2024 10:52 AM EST documented in this encounter Results * High Sensitivity Troponin I (06/18/2024 4:56 PM EST) Pathologist [facility] TROPONIN I HIGH SENSITIVITY <2.7 <3.5 - 17.0 ng/L [facility] Comment:The Davis high sens itivity Troponin-I results should beused in conjunction with other diagnostic information suchas ECG, clinical observations and information, and patientsymptoms to aid in the diagnosis of CO. 06/18/2024 4:56 PM EST 06/18/2024 4:59 PM EST Generic External Data Provider LAB BLOOD ORDERAB LES Final Result Performing Organization Address [facility] Co de Phone Number [facility] [address] [place] [phone] * B Type Natriuretic Peptide (BNP) (06/18/2024 4:56 PM EST) [facility] B Type Natriuretic Peptide 11 <100 pg/mL [facility] Comment:For those patients w ho are being treated with Natrecor(nesiritide, recombinant BNP), BNP testing should beperformed at least two hours post treatment in order toensure that only endogenous levels of BNP are detected. 06/18/2024 4:56 PM EST 06/18/2024 4:59 PM EST us Generic External Data Provider LAB BLOOD ORDERAB LES Final Result Performing Organization Address City/[facility]/ZIP Co de Phone Number [facility] [address] [place] [phone] * CTA Chest PE Protocal (06/18/2024 3:34 PM EST) Anatomical Region Laterality Modality Body, Chest Computed Tomogra phy 06/18/2024 3:34 PM EST Narrative 06/18/2024 4:43 PM EST ? [facility] ?[address] ?[place] [address] ? CT Scan Report ? Signed ? Patient: Cleo Rock ?MR#: ?? [id number] ? : 1990 ?Acct:[id number] ? Age/Sex: 33 / F ?ADM Date: 06/18/24 ? Loc: HO.ED ? Attending Dr: ? Ordering Physician: Michela Rouse ?? Date of Service: 06/18/24 ?? Procedure(s): CT angio chest PE protocol ?? Accession Number(s): [id number] ? cc: Marisa Livingston MD; Michela Rouse ? Report Number: ?? [id number]: Total DLP = ??266.00 mGy-cm ?? EXAMINATION: ?? CT ANGIOGRAM CHEST ? CLINICAL INFORMATION: ?? Shortness of breath. ??Cough. ? COMPARISON: ?? No prior CT. Chest radiograph dated earlier same day. ? TECHNIQUE: ?? Multiple axial images were obtained through the chest after the ?? administration of 50 mL of Omnipaque 350 intravenous contrast. ?? Extensive vascular post-processing including two-dimensional and ?? three-dimensional reformatted images were created and reviewed on an ?? independent workstation. ? This CT examination was performed using dose optimization techniques as ?? appropriate, variously including the following: ?? *Automated exposure control ?? *Adjustment of mA and/or kV according to patient size (this includes ?? techniques or standardized protocols for targeted exams where dose is ?? matched to indication/reason for exam; i.e. extremities or head) ?? *Use of iterative reconstruction technique ? FINDINGS: ? LUNGS: ?? -Mild mosaic attenuation of the lungs, likely secondary to partial ?? expiratory state. There are low lung volumes. ?? -Mild gravity dependent changes. ?? -No consolidations, abnormal opacities, more small airway abnormalities. ?? -No pneumothorax. ? -Calcified granuloma medial left lower lobe. ?? -No suspicious pulmonary nodule. ? PLEURA: There is no pleural effusion. No pleural mass or thickening. ? MEDIASTINUM: ?? -No lymphadenopathy, hematoma, or mass. ?? -No pericardial effusion. ?? -Mild to moderate cardiac enlargement, with predominantly left ?? ventricular and right ventricular enlargement. ? -Normal esophagus. ?? -Normal central airways. ?? -Normal thyroid. ? VASCULAR: ?? -Study quality is diagnostic. ?? -There is no pulmonary embolus identified. ?? -Main pulmonary artery is enlarged suggesting pulmonary arterial ?? hypertension. ?? -No right heart strain. ?? -No significant contrast reflux into the IVC. ?? -Aorta is normal without acute aortic syndrome. ? AXILLA/CHEST WALL: No lymphadenopathy. ? UPPER ABDOMEN: Numerous calcified gallstones within an otherwise ?? normal-appearing gallbladder. ?? Remainder of the imaged upper abdominal structures appear normal. ? OSSEOUS STRUCTURES: Unremarkable. ? CT/CT angio chest PE protocol ?? IMPRESSION: ?? 1. No evidence of pulmonary embolus or acute aortic syndrome. ?? 2. Jryq-bv-jvatssqr cardiac enlargement with predominantly ?? biventricular dilatation. ?? 3. Enlarged main pulmonary artery suggesting pulmonary arterial ?? hypertension. ?? 4. Mild mosaic attenuation of the lung parenchyma, most likely ?? secondary to partial expiratory phase. No focal pneumonia or abnormal ?? opacities otherwise. No effusions. ?? 5. Cholelithiasis. ? Electronically signed by: ??Diego Montana MD ??06/18/2024 04:27 PM EST RP ? Dictated By: ?Diego Montana MD ? Signed By: ?<Electronically signed by Diego Montana MD in OV> ?06/18/24 1627 ? DD/ 1534 ? TD/TT: 06/18/24 1545 ? Button Grader: ? 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 Armando, Image - 06/18/[address] [address] [address] Scan Report Signed Patient: Cleo Rock R#: [id number] : 1990Acct:[id number] Age/Sex: 33 / FADM Date: 06/18/24 Loc: HO.ED Attending Dr: Ordering Physician: Michela Rouse Date of Service: 06/18/24 Procedure(s): CT angio chest PE protocol Accession Number(s): [id number] cc: Marisa Livingston MD; Michela Rouse Report Number: [id number]: Total DLP = 266.00 mGy-cm EXAMINATION: CT ANGIOGRAM CHEST CLINICAL INFORMATION: Shortness of breath. Cough. COMPARISON: No prior CT. Chest radiograph dated earlier same day. TECHNIQUE: Multiple axial images were obtained through the chest after the administration of 50 mL of Omnipaque 350 intravenous contrast. Extensive vascular post-processing including two-dimensional and three-dimensional reformatted images were created and reviewed on an independent workstation. This CT examination was performed using dose optimization techniques as appropriate, variously including the following: *Automated exposure control *Adjustment of mA and/or kV according to patient size (this includes techniques or standardized protocols for targeted exams where dose is matched to indication/reason for exam; i.e. extremities or head) *Use of iterative reconstruction technique FINDINGS: LUNGS: -Mild mosaic attenuation of the lungs, likely secondary to partial expiratory state. There are low lung volumes. -Mild gravity dependent changes. -No consolidations, abnormal opacities, more small airway abnormalities. -No pneumothorax. -Calcified granuloma medial left lower lobe. -No suspicious pulmonary nodule. PLEURA: There is no pleural effusion. No pleural mass or thickening. MEDIASTINUM: -No lymphadenopathy, hematoma, or mass. -No pericardial effusion. -Mild to moderate cardiac enlargement, with predominantly left ventricular and right ventricular enlargement. -Normal esophagus. -Normal central airways. -Normal thyroid. VASCULAR: -Study quality is diagnostic. -There is no pulmonary embolus identified. -Main pulmonary artery is enlarged suggesting pulmonary arterial hypertension. -No right heart strain. -No significant contrast reflux into the IVC. -Aorta is normal without acute aortic syndrome. AXILLA/CHEST WALL: No lymphadenopathy. UPPER ABDOMEN: Numerous calcified gallstones within an otherwise normal-appearing gallbladder. Remainder of the imaged upper abdominal structures appear normal. OSSEOUS STRUCTURES: Unremarkable. CT/CT angio chest PE protocol IMPRESSION: 1. No evidence of pulmonary embolus or acute aortic syndrome. 2. Oypu-vc-pobynjyc cardiac enlargement with predominantly biventricular dilatation. 3. Enlarged main pulmonary artery suggesting pulmonary arterial hypertension. 4. Mild mosaic attenuation of the lung parenchyma, most likely secondary to partial expiratory phase. No focal pneumonia or abnormal opacities otherwise. No effusions. 5. Cholelithiasis. Electronically signed by: Diego Montana MD 06/18/2024 04:27 PM EST RP Dictated By: Diego Montana MD Signed By: <Electronically signed by Diego Montana MD in OV> 06/18/24 1627 DD/ 1534 TD/TT: 06/18/24 1545 Button Grader: [facility] External Provider IMG CT PROCEDURES Final Result * XR Chest 2 Views (06/18/2024 11:06 AM EST) Anatomical Region Laterality Modality Chest Radiographic Angelita ging 06/18/2024 11:0 6 AM EST Narrative 06/18/2024 11:19 AM EST ? [facility] ?[address] ?[place] [address] ?XRay Report ? Signed ? Patient: Luis DinoCleo ?MR#: ?? [id number] ? : 1990 ?Acct:[id number] ? Age/Sex: 33 / F ?ADM Date: 06/18/24 ? Loc: HO.ED ? Attending Dr: ? Ordering Physician: Bay Christina ?? Date of Service: 06/18/24 ?? Procedure(s): XR chest 2V ?? Accession Number(s): [id number] ? cc: Marisa Livingston MD; aBy Christina ? EXAMINATION: ?? XR CHEST ? [...] DD/ 1106 ? TD/TT: 06/18/24 1113 ? Button Grader: ? 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 Donotuseinterpreter, Image - 06/18/[address] [address] XRay Report Signed Patient: Cleo Rock JMR#: [id number] : 1990Acct:[id number] Age/Sex: 33 / FADM Date: 06/18/24 Loc: .ED Attending Dr: Ordering Physician: Bay Christina Date of Service: 06/18/24 Procedure(s): XR chest 2V Accession Number(s): [id number] cc: Marisa Livingston MD; Bay Christina EXAMINATION: [...] 06/18/24 1116 DD/ 1106 TD/TT: 06/18/24 1113 Button Grader: [facility] External Provider IMG XR PROCEDURES Final Result * hCG, Total, Quantitative (06/18/2024 10:52 AM EST) Pathologist [facility] HCG Quantitative <2 mIU/mL [facility] Comment:Weeks post LMP Appro ximate hCG(Last Menstrual Period) Range (mIU/ml)3 - 4 weeks 9 - 1304 - 5 weeks 75 - 2,6005 - 6 weeks 850 - 20,8006 - 7 weeks 4000 - 100,2007 - 12 weeks 11,500 - 289,82304 - 16 weeks 18,300 - 137,54121 - 29 weeks (2nd trimester) 1,400 - 53,41027 - 41 weeks (3rd trimester) 940 - 60,000The Davis B- hCG assay is used for the early detection ofpregnancy; it cannot be used to diagnose any conditionunrelated to . If a B-hCG level is not supportedby the clinical evidence, results should be confirmed by analternative method (qualitative urine hCG, for example). 06/18/2024 10:5 2 AM EST 06/18/2024 10:56 AM EST Generic External Data Provider LAB BLOOD ORDERAB LES Final Result Performing Organization Address [facility] Co de Phone Number [facility] [address] [place] [phone] * D Dimer High Sensitivity (06/18/2024 10:52 AM EST) Pathologist [facility] D Dimer High Sensitivity 232 NG/ML [facility] Comment:D-DIMER HS REFERENCE RANGENote: Our assay reports D-Dimer Units (D- DU).The cut-off value for venous thromboembolic (VTE) disease is230 ng/mL. This value has a very high negative predictivevalue when the patient has a low to moderate clinicalprobability of VTE.The upper limit of normal is 243 ng/mL. 06/18/2024 10:5 2 AM EST 06/18/2024 10:56 AM EST us Generic External Data Provider LAB BLOOD ORDERAB LES Final Result Performing Organization Address [facility]/ZIP Co de Phone Number [facility] [address] [place] [phone] * Influenza A B2 ID NOW (Davis) (06/18/2024 10:52 AM EST) IDNOW SERIAL# [id number] [facility] Influenza A Negative Negative [facility] Influenza B2 Negative Negative [facility] Influenza A B2 Note See Note [facility] Comment:The Davis ID NOW In fluenza [...] LAB MICROBIOLOGY - GENERAL ORDERABLES Final Result [facility] [address] [place] [phone] * COVID-19 ID NOW (DAVIS) (06/18/2024 10:52 AM EST) IDNOW SERIAL# [id number] [facility] COVID-19 TEST Negative Negative [facility] COVID-19 NOTE See Note [facility] Comment: Results are for the identification of SARS-CoV2 RNA. TheSARS-CoV2 RNA is generally detectable in respiratory samplesduring the acute phase of infection. Positive results areindicative of the presence of SARS-CoV-2 RNA; clinicalcorrelation with patient history and other diagnosticinformation is necessary to determine patient infectionstatus. Positive results do not rule out bacterial infectionor co- infection with other viruses.Testing facilities within the [facility] and itsterritories are required to [...] use by authorized laboratories.Testing performed on the [employer] NOW utilizing NAAT. 06/18/2024 10:5 2 AM EST 06/18/2024 10:56 AM EST us Generic External Data Provider LAB MOLECULAR DELMI GNOSTICS ORDERABLES Final Result [facility] [address] [place] [phone] * (ABNORMAL) Basic Metabolic Panel (06/18/2024 10:52 AM EST) Sodium 144 135 - 145 mmol/L [facility] Potassium 3.7 3.3 - 5.1 mmol/L [facility] Chloride 112(H) 96 - 108 mmol/L [facility] Carbon Dioxide 24 22 - 29 mmol/L [facility] Anion Gap 12 12 - 20 [facility] Urea Nitrogen (BUN) 9 9 - 16 mg/dL [facility] Creatinine, Serum 0.61 0.5 - 1.4 mg/dL [facility] Creatinine Clr Calc Pharmacy 135.9 [facility] Comment:Provided height and weight: 162.56 cm,85.2 kg.eGFR (calculated from the MDRD study equation) and eCrCl(calculated from the Cockcroft-Gault equation) are based ondifferent parameters and may not yield comparable results.If eCrCl result is absurd, please check patient'sheight/weight. Estimated Glomerular Filt Rate >60 [facility] Comment:Chronic Kidney Disea se: Estimated GFR < 60 mL/min/1.52x8Oavoes Kidney Disease: Estimated GFR < 15 mL/min/1.73m2 Glucose 88 60 - 115 mg/dL [facility] Calcium 9.2 8.4 - 10.2 mg/dL [facility] 06/18/2024 10:5 2 AM EST 06/18/2024 10:56 AM EST Generic External Data Provider LAB BLOOD ORDERAB LES Final Result Performing Organization Address City/[facility] Co de Phone Number [facility] [address] [place] [phone] * (ABNORMAL) Prothrombin Time-INR (06/18/2024 10:52 AM EST) Prothrombin Time 13.5(H) 10.9 - 12.4 SEC [facility] INTERNATIONAL NORM RATIO 1.2(H) 0.9 - 1.1 [facility] Comment:INTERNATIONAL NORMAL IZED RATIO (INR) REFERENCE [...] 2 AM EST 06/18/2024 10:56 AM EST [employer] External Data Provider LAB BLOOD ORDERAB LES Final Result Performing Organization Address [facility] Co de Phone Number [facility] [address] [place] [phone] * (ABNORMAL) CBC auto differential (06/18/2024 10:52 AM EST) White Blood Count 6.7 4.8 - 10.8 X10*3/uL [facility] Red Blood Count 4.66 4.20 - 5.50 X10*6/uL [facility] Hemoglobin 9.1(L) 12.0 - 16.0 g/dl [facility] Hematocrit 31.5(L) 37.0 - 47.0 % [facility] Mean Corpuscular Volume 67.6(L) 80.0 - 98.0 fL [facility] Mean Corpuscular Hemoglobin 19.5(L) 27.0 - 33.0 pg [facility] Mean Corpuscular HGB Conc 28.9(L) 31.0 - 35.0 g/dl [facility] Red Cell Distribution Width 19.1(H) 11.0 - 16.0 % [facility] Platelet Count 334 160 - 400 X10*3/uL [facility] Mean Platelet Volume 9.0(L) 9.4 - 12.3 fL [facility] Neutrophils Percent Auto 63.8 45 - 73 % [facility] Imm Gran Pct Auto 0.1 0.0 - 0.4 % [facility] Lymphocytes Percent Auto 24.5 20 - 40 % [facility] Monocytes Percent Auto 6.1 2 - 11 % [facility] Eosinophils Percent Auto 5.2(H) 0 - 4 % [facility] Basophils Percent Auto 0.3 0 - 2 % [facility] NRBC Pct Auto 0.0 0.0 - 0.2 /100WBC [facility] Neutrophils Absolute Auto 4.3 2.0 - 8.3 x10*3/uL [facility] Imm Gran Abs Auto 0.01 0.00 - 0.03 X10*3/uL [facility] Lymphocytes Absolute Auto 1.6 1.2 - 4.9 X10*3/uL [facility] Monocytes Absolute Auto 0.4 0.1 - 1.2 X10*3/uL [facility] Eosinophils Absolute Auto 0.4 0.0 - 0.4 X10*3/uL [facility] Basophils Absolute Auto 0.0 0.0 - 0.2 X10*3/uL [facility] NRBC Abs Auto 0.000 0.0 - 0.012 X10*3/uL [facility] 06/18/2024 10:5 2 AM EST 06/18/2024 10:56 AM EST us Generic External Data Provider LAB BLOOD ORDERAB LES Final Result [facility] [address] [place] [phone] documented in this encounter Visit Diagnoses Not on filedocumented in this encounter Additional Health Concerns Assessment Noted Time PHQ-9 Depression Total Score: 17 024 9:31 AM EST documented as of this encounter Care Teams Publicity Expert Relationship Specialty Start Date End Date Marisa Livingston MD [address] [place] [phone] PCP - General Family Medicine 03/12/19 documented as of this encounter
--- OUTSIDE RECORDS SUMMARY | 2024-07-01 10:17 | XMS_ITS | Encounter Summary ---
Author Organization [employer] Address [address] [facility] [address] [place] [address] Care Team Providers Care Balance Wheel Hand Filer Name Role Phone Marisa Livingston MD Primary Care Provider + Reason for Visit * Reason Comments Med Refill Encounter Details Date Type Department Care Team ([facility] st Contact Info) Description 06/07/2024 Refill [facility] [address] [place] [address] Marisa Livingston MD [address] [place] [address] Social History Tobacco Use Types Packs/Day Years [...] Description 07/02/2024 12:15 PM EST Office Visit [facility] [address] [place] [phone] Marisa Livingston MD [address] [place] [phone] 07/13/2024 3:30 PM EST Office Visit [facility] [address] [place] [phone] Marisa Livingston MD [address] [place] [phone] documented as of this encounter Visit Diagnoses Not on filedocumented in this encounter Additional Health Concerns Assessment Noted Time PHQ-9 Depression Total Score: 17 024 9:31 AM EST documented as of this encounter Care Teams Balance Wheel Hand Filer Relationship Specialty Start Date End Date Marisa Livingston MD [address] [place] [phone] PCP - General Family Medicine 03/12/19 documented as of this encounter
--- OUTSIDE RECORDS SUMMARY | 2024-07-01 10:17 | XMS_ITS | Encounter Summary ---
Author Organization [employer] Address [address] [place] [address] [address] [address] Care Team Providers Care Compliance Testing Analyst Name Role Phone Marisa Livingston MD Primary Care Provider + Perez Vergara RN Unavailable [phone] Reason for Referral * Consultation (Routine) - Authorized Specialty Diagnoses / Procedures Referred By Contdaniela t Referred To Contact Hematology and Oncology Diagnoses Chronic anemia Jaki Cruz MD [address] [place] [phone] Phone: tel: fax: [address] Phone: tel: fax: Referral ID Status Reason Start Date Expiration Date Visits Requested Visits Authorized [id number] Authorized Specialty Services Required 06/17/2024 06/17/2025 6 6 Encounter Details Date Type Department Care Team (Late st Contact Info) Description 06/17/2024 Orders Only [facility] [address] [place] [address] [phone] Jaki Cruz MD [address] [place] [address] [phone] Chronic anemia (Primary Dx) Social History Tobacco [...] t he electric, gas, oil or water [employer] threatened to shut off services in your [...] Description 07/02/2024 12:15 PM EST Office Visit [facility] [address] [place] [phone] Marisa Livingston MD [address] [place] [phone] 07/13/2024 3:30 PM EST Office Visit [facility] [address] [place] [phone] Marisa Livingston MD [address] [place] [address] Scheduled Referrals Name Type Priority Associated Diagnoses Order Schedule Referral to Hematology / Oncology Outpatient Referral Routine Chronic anemia Expected: 06/17/2024 (Approximate), Expires: 06/17/2025 documented as of this encounter Visit Diagnoses Diagnosis Chronic anemia- Primary Unspecified anemia documented in this encounter Additional Health Concerns Assessment Noted Time PHQ-9 Depression Total Score: 17 024 9:31 AM EST documented as of this encounter Care Teams Compliance Testing Analyst Relationship Specialty Start Date End Date Marisa Livingston MD [address] [place] [address] PCP - General Family Medicine 03/12/19 Perez Vergara, [place] [address] [place] [address] Completion ManagerBulk Mail Clerk 06/30/24 documented as of this encounter
--- OUTSIDE RECORDS SUMMARY | 2024-07-01 10:17 | XMS_ITS | Encounter Summary ---
Author Organization [employer] Address [address] 7[address] [place] [address] Care Team Providers Care Director Of Placement Name Role Phone Marisa Livingston MD Primary Care Provider + Encounter Details Date Type Department Care Team ([facility] st Contact Info) Description 06/03/2024 Orders Only C [facility] [address] [place], [place] [phone] Berlin Hagen, DMD [address] [place] [address] Social History Tobacco Use Types Packs/Day Years [...] Office Visit [facility] MED[facility]INE [address] [place] [phone] Marisa Livingston MD [address] [place] [phone] 07/13/2024 3:30 PM EST Office Visit [address] [address] Marisa Livingston MD [address] [place] [phone] Scheduled Orders Name Type Priority Associated Diagnoses Orde r Schedule PERIODIC ORAL EVALUATION - ESTABLISHED PATIENT Dental Routine 1 Occurren alberto starting 06/03/2024 documented as of this encounter Visit Diagnoses Not on filedocumented in this encounter Additional Health Concerns Assessment Noted Time PHQ-9 Depression Total Score: 17 024 9:31 AM EST documented as of this encounter Care Teams Director Of Placement Relationship Specialty Start Date End Date Marisa Livingston MD [address] [place] [phone] PCP - General Family Medicine 03/12/19 documented as of this encounter
--- OUTSIDE RECORDS SUMMARY | 2024-07-01 10:17 | XMS_ITS | Encounter Summary ---
Author Organization [employer] Address [address] [facility] 7 [place] [address] Care Team Providers Care Business Analyst Name Role Phone Marisa Livingston MD Primary Care Provider + Reason for Visit * Reason Onset Date Comments Nurse Triage 06/10/2024 Encounter Details Date Type Department Care Team ([facility] st Contact Info) Description 06/10/2024 Telephone [facility] [address] [place] [address] Marisa Livingston MD [address] [place] [address] Nurse Triage Social History Tobacco Use Types [...] 9:15 AM EST TC placed to Cleo [phone] in regards to below message. Patient reports she did not go to the ED yesterday because her son fell and she had to bring her son to the hospital d/t needing stitches.Patient reports she plans to come to the [facility] today. Patient reports she is experiencing SOB with exertion. Patient reports she recently had flu (diagnosed at [facility]) however does not feel these [...] call. Patient reports she will come to [facility] today katarina evaluated. Patient to f/u PRN. * Telephone Encounter - Dayami Bradshaw LPN - 06/10/2024 9:18 AM EST Triage call returned to patient with BLS Jeramie [phone]. Patient calling with shortness of breath. Speaking [...] in agreement with plan. Will return to [facility] ED now. Forwarded to PCP and team as FYI to follow up PRN Protocol Used: Asthma Attack (Adult) Protocol-Based Disposition: Go to ED/[facility] Now (or to Office with PCP Approval) [...] caller accepted this outcome. Contact pt at [phone] documented in this encounter Plan of Treatment Upcoming Encounters Date Type Department Care Team (Late st Contact Info) Description 07/02/2024 12:15 PM EST Office Visit [facility] [address] [place], [place] [phone] Marisa Livingston MD [address] [place], [place] [phone] 07/13/2024 3:30 PM EST Office Visit [facility] [address] [place], [place] [phone] Marisa Livingston MD [address] [place] [address] documented as of this encounter Visit Diagnoses Not on filedocumented in this encounter Additional Health Concerns Assessment Noted Time PHQ-9 Depression Total Score: 17 024 9:31 AM EST documented as of this encounter Care Teams Business Analyst Relationship Specialty Start Date End Date Marisa Livingston MD [address] [place] [phone] PCP - General Family Medicine 03/12/19 documented as of this encounter
--- OUTSIDE RECORDS SUMMARY | 2024-07-01 10:17 | XMS_ITS | Encounter Summary ---
Author Organization [employer] Address [address] [facility] 7 [place] [address] Care Team Providers Care Mortgage Loan Reviewer Name Role Phone Marisa Livingston MD Primary Care Provider + Reason for Visit * Reason Onset Date Comments Nurse Triage 06/04/2024 Encounter Details Date Type Department Care Team ([facility] st Contact Info) Description 06/04/2024 Telephone [facility] MEDICINE [address] [place] [address] Marisa Livingston MD [address] [place] [address] Nurse Triage Social History Tobacco Use Types [...] 3:17 PM EST TC placed to patient [phone] however no answer and RN unable to leave VM d/t VM being full. Patient to f/u PRN. * Telephone Encounter - Dominic Shearer - 06/08/2024 11:53 AM EST Tc from pt returning missed call , pt is requesting a callback at [phone] * Telephone Encounter - Gem Aguila RN - 06/08/2024 9:52 AM EST RN reviewed [facility]. Patient did not go to either facility. TC placed to patient [phone] however no answer and VM is full. RN unable to leave VM. TC placed to secondary number [phone] however number is OOS. RN unable to leave VM. TC placed to spouse [phone] however the service you are attempting to use has been restricted or is unavailable . RN unable to leave VM. Patientto f/u PRN. * Telephone Encounter - Dedra Thomas RN - 06/04/2024 10:06 AM EST Sent to team for [facility] ER status check PRN. * Telephone Encounter - Dedra Thomas RN - 06/04/2024 9:58 AM EST Per [facility] notes, pt positive for influenza A. Given [...] advised of disposition, agrees to return to [facility] ED for evaluation. Rev iewed home care [...] ED visit on : Date: 05/26/24 Hospital: [facility] Seen for: Flu and asthma Symptomatic Yes *if yes message should go to Triage Contact pt at [phone] (sami) documented in this encounter Plan of Treatment Upcoming Encounters Date Type Department Care Team (Late st Contact Info) Description 07/02/2024 12:15 PM EST Office Visit [facility] MED[facility]INE [address] [facility] [place] [address] Marisa Livingston MD [address] [place], [place] [phone] 07/13/2024 3:30 PM EST Office Visit [facility] MED[facility]INE [address] [facility], [place] [phone] Marisa Livingston MD [address] [place] [address] [phone] documented as of this encounter Visit Diagnoses Not on filedocumented in this encounter Additional Health Concerns Assessment Noted Time PHQ-9 Depression Total Score: 17 024 9:31 AM EST documented as of this encounter Care Teams Mortgage Loan Reviewer Relationship Specialty Start Date End Date Marisa Livingston MD [address] [place] [address] [phone] PCP - General Family Medicine 03/12/19 documented as of this encounter
--- OUTSIDE RECORDS SUMMARY | 2024-07-01 10:18 | XMS_ITS | Encounter Summary ---
Author Organization [employer] Address [address] [facility] 7 [place] [address] Care Team Providers Care Metal Or Wood Blocker Name Role Phone Marisa Livingston MD Primary Care Provider + Reason for Visit * Reason Comments Care Coordination [facility] telephone call outreach Encounter Details Date Type Department Care Team (Latest Contact Info) Description 06/21/2024 Patient Outreach [facility]INE [address] [place] [address] Marisa Livingston MD [address] [place] [address] Care Coordination ([facility] Lloyd telephone call outreach) Social History Tobacco Use Types Packs/Day Years [...] AM EDT documented as of this encounter Progress Notes * Stacey Lloyd - 06/21/2024 10:11 AM EST CHW Stacey Lloyd, placed outbound call to patient introducing herself from [facility] CM Department, in regards to offering services. Patient's name and was confirmed. Patient agrees toparticipate in program. Appt. for initial assessment scheduled for 06/30/24 @ 1:00PM. CHW reinforced direct contact information or CM for any additional questions or concerns and extended clinic hours on Mondays and Wednesdays, and Walk-In Urgent Care Located in [facility]. Patient provided with after-hours line for [facility], , which offer night time triage service and option to transfer to senior application software engineer provider if needed. Patient verbalizes understanding, and a ble to repeat back to technical proposal writer. documented in this encounter Plan of Treatment Upcoming Encounters Date Type Department Care Team ([facility] st Contact Info) Description 07/02/2024 12:15 PM EST Office Visit [facility] [address] [place] [phone] Marisa Livingston MD [address] [place] [address] 07/13/2024 3:30 PM EST Office Visit [facility] [address] [place] [address] Marisa Livingston MD [address] [place] [address] documented as of this encounter Visit Diagnoses Not on filedocumented in this encounter Additional Health Concerns Assessment Noted Time PHQ-9 Depression Total Score: 17 024 9:31 AM EST documented as of this encounter Care Teams Metal Or Wood Blocker Relationship Specialty Start Date End Date Marisa Livingston MD [address] [place] [address] PCP - General Family Medicine 03/12/19 documented as of this encounter
--- OUTSIDE RECORDS SUMMARY | 2024-07-01 10:18 | XMS_ITS | Encounter Summary ---
Author Organization [employer] Address [address] [place] [address] [place], [place] [address] Care Team Providers Care Visual C Developer Name Role Phone Marisa Livingston MD Primary Care Provider + Perez Vergara RN Unavailable [phone] Encounter Details Date Type Department Care Team (Late Contact Info) Description 06/27/2022 Abstract [facility] [address] [place] [address] Jeramie Treadwell DDS [address] [place] [address] Social History Tobacco Use Types Packs/Day Years [...] 07/02/2024 12:15 PM EST Office Visit [facility] [address] [place] [address] Marisa Livingston MD [address] [place] [address] 07/13/2024 3:30 PM EST Office Visit [facility] [address] [place] [address] [phone] Marisa Livingston MD [address] [place] [address] [phone] documented as of this encounter Visit Diagnoses Not on filedocumented in this encounter Care Teams Visual C Developer Relationship Specialty Start Date End Date Marisa Livingston MD [address] [place] [address] [phone] PCP - General Family Medicine 03/12/19 Perez Vergara, CHAP[place]O [address] [place] [phone] Silica Filter OperatorElementary School Social Worker 06/30/24 documented as of this encounter
--- OUTSIDE RECORDS SUMMARY | 2024-07-01 10:18 | XMS_ITS | Encounter Summary ---
Author Organization [employer] Address [address] [place] [address] [facility] [place] [address] Care Team Providers Care Aerotriangulation Specialist Name Role Phone Marisa Livingston MD Primary Care Provider + Perez Vergara RN Unavailable [phone] Encounter Details Date Type Department Care Team (Latest Contact Info) Description 03/26/2019 Abstract [facility] CONVERSION[facility] Dental, Provider, DDS Social History [...] Description 07/02/2024 12:15 PM EST Office Visit [address] [address] Marisa Livingston MD [address] [place] [address] [phone] 07/13/2024 3:30 PM EST Office Visit [address] [address] Marisa Livingston MD [address] [place] [address] [phone] documented as of this encounter Visit Diagnoses Not on filedocumented in this encounter Care Teams Aerotriangulation Specialist Relationship Specialty Start Date End Date Marisa Livingston MD [address] [place] [address] PCP - General Family Medicine 03/12/19 Perez Vergara RN [address] [place] [phone] Histology AideDraw Frame Runner 06/30/24 documented as of this encounter
--- OUTSIDE RECORDS SUMMARY | 2024-07-01 10:18 | XMS_ITS | Encounter Summary ---
Author Organization [employer] Address [address] [facility] 7 [place] [address] Care Team Providers Care Cloth Shader Name Role Phone Marisa Livingston MD Primary Care Provider + Perez Vergara RN Unavailable [phone] Reason for Visit * Reason Comments Med Refill Encounter Details Date Type Department Care Team (Late st Contact Info) Description 03/04/2024 Refill [facility] [address] [place] [address] Marisa Livingston MD [address] [place] [address] Social History Tobacco Use Types Packs/Day Years [...] Description 07/02/2024 12:15 PM EST Office Visit [address] [address] Marisa Livingston MD [address] [place] [phone] 07/13/2024 3:30 PM EST Office Visit [address] [address] Marisa Livingston MD [address] [place] [phone] documented as of this encounter Visit Diagnoses Not on filedocumented in this encounter Additional Health Concerns Assessment Noted Time PHQ-9 Depression Total Score: 17 024 9:31 AM EST documented as of this encounter Care Teams Cloth Shader Relationship Specialty Start Date End Date Marisa Livingston MD [address] [place] [phone] PCP - General Family Medicine 03/12/19 Perez Vergara RN [address] [place] [address] Mouse BreederSales Planning Coordinator 06/30/24 documented as of this encounter
--- OUTSIDE RECORDS SUMMARY | 2024-07-01 10:18 | XMS_ITS | Encounter Summary ---
Author Organization [employer] Address [address] [facility] 7 [place] [address] Care Team Providers Care Order Checker Name Role Phone Marisa Livingston MD Primary Care Provider + Encounter Details Date Type Department Care Team ([facility] st Contact Info) Description 06/29/2024 Patient Outreach [facility]INE [address] [place] [address] Marisa Livingston MD [address] [place] [address] Social History Tobacco Use Types Packs/Day Years [...] housing situation today? I have yenny frost 06/29/[address] you li ve. Do you have problems with any of the following? None of the above 06/29/2024 Food Insecurity Answer Date Recorded Within the past 12 months, y ou worried that your food would run out before you got money to buy more: Never True 06/29/2024 Within the past 12 months,th e food you bought just didn't last and you didn't have enough money to get more: Never True 03/2025 Transportation Answer Date Recorded In the past 12 months, has l ack of transportation kept you from medical appts, meetings, work or from getting things needed for daily living? No 06/29/2024 Utilities Answer Date Recorded In the past 12 months, has t he electric, gas, oil or water company threatened to shut off services in your home? No 06/29/2024 Depression Answer Date Recorded Patient Health Questionnaire-2 Score 6 07/08/2023 Internet Access Answer Date Recorded Internet Access Q1 Yes 06/29/2024 Internet Access Q2 Not on file 06/29/2024 Comments Unknown Sex and Gender Information Value Date Recorded Sex Assigned at Female 03/18/2022 10:36 AM EDT Legal Sex Female 10:36 AM EDT Gender Identity Female 03/18/2022 10:36 AM EDT Sexual Orientation Straight 03/18/2022 10 :36 AM EDT documented as of this encounter Progress Notes * Heidi Zuniga - 06/29/2024 11:19 AM EST CC Heidi placed successful outbound call to patient for pre-visit planning. Patient name and confirmed. Patient confirms appt date and time, and has transportation. Biggest concern for appointment at this time is weight and asthma Patient advised to bring to appointment a photo id and insurance card. Appropriate screenings completed in anticipation of appointment. documented in this encounter Plan of Treatment Upcoming Encounters Date Type Department Care Team (Late st Contact Info) Description 07/02/2024 12:15 PM EST Office Visit [facility] [address] [place] [phone] Marisa Livingston MD [address] [place] [phone] 07/13/2024 3:30 PM EST Office Visit [facility] [address] [place] [address] Marisa Livingston MD [address] [place] [phone] documented as of this encounter Visit Diagnoses Not on filedocumented in this encounter Additional Health Concerns Assessment Noted Time PHQ-9 Depression Total Score: 17 02/20/2 024 9:31 AM EST documented as of this encounter Care Teams Order Checker Relationship Specialty Start Date End Date Marisa Livingston MD [address] [place] [phone] PCP - General Family Medicine 03/12/19 documented as of this encounter
--- OUTSIDE RECORDS SUMMARY | 2024-07-01 10:18 | XMS_ITS | Clinical Summary ---
Author Organization [employer] Address [address] [facility] 7t [place] [address] Care Team Providers Care Video Production Specialist Name Role Phone Marisa Livingston MD Primary Care Provider + Perez Vergara RN Unavailable [phone] Allergies Active Allergy Reactions Criticality Noted Date [...] hours. Active Nebulizers (Vios Aerosol Delivery System) [facility] [place]. 11/09/19 23 Active Fasenra Pen [...] 24 Active ergocalciferol (Vitamin D2) 1.25 MG (44474 UT) capsule TAKE 1 CAPSULE(1.25 MG) BY MOUTH 1 TIME EVERY WEEK 12 capsule 1 06/08/19 25 Active ergocalciferol (Vitamin D2) 1.25 MG (87439 UT) capsule TAKE 1 CAPSULE(1.25 MG) BY MOUTH 1 TIME EVERY WEEK 12 capsule 1 06/04/19 24 025 Discontinued Active Problems Problem Noted Date Diagnosed Date Cardiac enlargement 06/21/2024 Overview (06/21/2024): Addendum 06/21/24 9:33 AM - CT/CT angio chest PE protocol done in ER 06/18/24 to r/o PE revealsed No evidence of pulmonary embolus or acute aortic syndrome. Kcfz-lb-agiyvhol cardiac enlargement with predominantly biventricular dilatation. Enlarged main pulmonary artery suggesting pulmonary arterial hypertension. -will refer to cardiology Assessment & Plan (06/21/2024 9:34 AM EST): Addendum 06/21/24 9:33 AM - CT/CT angio chest PE protocol done in ER 06/18/24 to r/o PE revealsed No evidence of pulmonary embolus or acute aortic syndrome. Thut-sc-ucyybsqw cardiac enlargement with predominantly biventricular dilatation. Enlarged main pulmonary artery suggesting pulmonary arterial hypertension. -will refer to cardiology Moderate persistent asthma without complication 06/17/2024 Menorrhagia [...] exercise, life style modifications, diet, referral to wildlife removal specialist. Discussed re lower calorie intake, increase dietary fiber Assessment & Plan (11/22/2022 1:34 PM EDT): Discussed re weight reduction options including exercise, life style modifications, diet, referral to wildlife removal specialist. Discussed re lower calorie intake, increase [...] -Uncontrolled. -Restart Advair Diskus -Follow up with manager auto for immunotherapy. -Counseled on protocol for FMLA paperwork she brought with her today. Assessment & Plan (04/16/2023 11:37 AM EST): Seems to be improving on Faselizara Counseled patient to have COVID iz today [...] gave today NBZ machine written prescription to [facility] nurse staff -Alarm signs and [...] anti-muscarinic inhaler as Trelegy -Referred today to elementary education tutor for uncontrolled asthma Assessment & Plan (07/03/2022 [...] exercise, life style modifications, diet, referral to wildlife removal specialist. Discussed re lower calorie intake, increase [...] at home PAP smear: Overdue, refer to lab rn will need further eval for DUB Adult [...] Encounters Date Type Department Care Team Description 06/30/2024 Telephone [facility] MEDICINE [address] [place] [phone] Marisa Livingston MD Care Management (C3CM- initial assessment/enrollmen t) 06/29/2024 Patient Outreach [address] [phone] Marisa Livingston MD Care Coordination (C3 -[facility] telephone call outreach) 06/29/2024 Patient Outreach [address] [address] Marisa Livingston MD 06/21/2024 Patient Outreach [address] [phone] Marisa Livingston MD Care Coordination (C3 -[facility] telephone call outreach) 06/21/[address] [address] Jaki Cruz MD 06/21/[address] [address] Perez Vergara RN Care Management (C3- chart review) 06/18/2024 Orders Only GENERIC EXTERNAL DATA DEPARTMENT Provider, Generic External Data 06/17/2024 3:20 PM EST Office Visit [facility] WALK-IN [address] [address] Jaki Cruz MD Dyspnea on exertion (Primary Dx); Moderate persistent asthma without complication; Cardiac enlargement 06/17/2024 Telephone [facility] WALK-IN [address] [address] Jaki Cruz MD 06/17/2024 Telephone [facility] WALK-IN [address] [address] Bettie Garay RN ED EXPECT 06/17/2024 Orders Only [facility] WALK-IN [address] [address] Jaki Cruz MD Chronic anemia (Primary Dx) 06/17/2024 Telephone [facility] WALK-IN [address] [address] Amirah Pugh, [place] Nurse Triage (SOB) 06/10/[address] [address] Marisa Livingston MD Nurse Triage 06/07/2024 Refill [facility] MEDICINE [address] [place] [phone] Marisa Livingston MD 06/04/2024 Telephone [facility] MEDICINE [address] [place] [phone] Marisa Livingston MD Nurse Triage 06/03/2024 Orders Only [facility] CHC ADULT DENTAL [address] [place] [address] Berlin Hagen, DMD 05/27/2024 Refill [facility] MEDICINE [address] [place] [address] Marisa Livingston MD 05/26/2024 4:00 PM EST Office Visit [facility] WALK-IN CENTER [address] [place] [phone] Joann Sandoval MD Acute severe exacerbation of asthma (Primary Dx) 05/26/2024 Orders Only [facility] External Provider, [facility] 05/26/2024 Telephone [facility] MEDICINE [address] [place] [phone] Marisa Livingston MD Nurse Triage 05/20/2024 Telephone [facility] MEDICINE [address] [place] [phone] Marisa Livingston MD July recall from Last 3 Months Immunizations Name Administration [...] Description 07/02/2024 12:15 PM EST Office Visit [facility] MEDICINE [address] [place], [place] [phone] Marisa Livingston MD [address] [place], [place] [phone] 07/13/2024 3:30 PM EST Office Visit [facility] MEDICINE [address] [place], [place] [phone] Marisa Livingston MD [address] [place], [place] [phone] Health Maintenance Due Date Last Done Comments Alcohol/Substance Use Screening 2000 Family Planning (PISQ) 12/06/2003 Hepatitis C Screening 2006 Hepatitis B Vaccines (1 of 3 - 19+ 3-dose series) 12/06/2007 Dental Oral Exam 08/29/2022 02/27/2022 Depression Monitoring (PHQ-9) 01/06/2024 07/08/2023, 07/08/2023 COVID-19 Vaccine ( season) 2024 Influenza Vaccine (#1) 2024 , 07/03/2022, 02/18/2019, Additional history exists Depression Screening 07/08/2024 07/08/2023, 07/08/19 Dental Prophylaxis 09/24/2024 03/26/2024 Dental X-Ray: Full Mouth 02/28/2025 02/27/2022 Tobacco Screening 03/26/2025 03/26/2024 Dental X-Ray: Bitewings 03/27/2025 03/26/2024, 02/27 SDOH Screening 06/29/2025 06/29/2024 Lipid Panel 12/10/2027 12/09/2022 DTaP/Tdap/Td Vaccines (2 [...] VIEWS Routine 06/18/2024 11:0 6 AM EST HCG, TOTAL, QN Routine 06/18/2024 10:52 AM EST D DIMER HIGH SENSITIVITY Routine 06/18/2024 10:52 AM EST COVID-19 ID NOW (DAVIS) Routine 06/18/2024 10:52 AM EST BASIC METABOLIC PANEL Routine 06/18/2024 10:52 AM EST PROTHROMBIN TIME-INR Routine 06/18/2024 10:52 AM EST CBC WITH AUTO DIFFERENTIAL Routine 06/18/2024 10:52 AM EST INFLUENZA A B2 ID NOW (DAVIS) Routine 06/18/2024 10:52 AM EST BORDETELLA PERTUSSIS TOXIN (PT) ANTIBODY (IGG), IMMUNOASSAY Routine 06/17/2024 3:32 PM EST Dyspnea on [...] 2 VIEWS Routine 05/26/2024 4:25 PM EST Full PROPHYLAXIS - ADULT Routine 03/26/2024 3:00 PM EST BITEWINGS - 4 RADIOGRAPHIC IMAGES Routine 03/26/2024 3:00 PM EST PAP SMEAR Routine 08/05/2023 3:15 PM EDT HIV ANTIBODY/ANTIGEN (DE DP) Routine 12/09/2022 1:30 PM EDT LIPID PANEL, STANDARD Routine 12/09/2022 1:30 PM EDT from Last 3 Months or Most Recently Relevant to Health Maintenance Results * High Sensitivity Troponin I (06/18/2024 4:56 PM EST) Pathologist [facility] TROPONIN I HIGH SENSITIVITY <2.7 <3.5 - 17.0 ng/L [facility] Comment:The Davis high sens itivity Troponin-I results should beused in conjunction with other diagnostic information suchas ECG, clinical observations and information, and patientsymptoms to aid in the diagnosis of AL. 06/18/2024 4:56 PM EST 06/18/2024 4:59 PM EST us Generic External Data Provider LAB BLOOD ORDERAB LES Final Result Performing Organization Address [facility] [address]/ZIP Co de Phone Number [facility] [address] [place] [phone] * B Type Natriuretic Peptide (BNP) (06/18/2024 4:56 PM EST) [facility] B Type Natriuretic Peptide 11 <100 pg/mL [facility] Comment:For those patients w ho are being treated with Natrecor(nesiritide, recombinant BNP), BNP testing should beperformed at least two hours post treatment in order toensure that only endogenous levels of BNP are detected. 06/18/2024 4:56 PM EST 06/18/2024 4:59 PM EST us Generic External Data Provider LAB BLOOD ORDERAB LES Final Result Performing Organization Address [facility] [address]/[facility] Co de Phone Number [facility] [address] [place] [phone] * CTA Chest PE Protocal (06/18/2024 3:34 PM EST) Anatomical Region Laterality Modality Body, Chest Computed Tomogra phy 06/18/2024 3:34 PM EST Narrative 06/18/2024 4:43 PM EST ? [facility] ?[address] ?[place] [address] ? CT Scan Report ? Signed ? Patient: Cleo Rock ?MR#: ?? [id number] ? : 1990 ?Acct:[id number] ? Age/Sex: 33 / F ?ADM Date: 06/18/24 ? Loc: HO.ED ? Attending Dr: ? Ordering Physician: Michela Rouse ?? Date of Service: 06/18/24 ?? Procedure(s): CT angio chest PE protocol ?? Accession Number(s): [id number] ? cc: Marisa Livingston MD; Michela Rouse ? Report Number: ?? [id number]: Total DLP = ??266.00 mGy-cm ?? EXAMINATION: [...] embolus or acute aortic syndrome. ?? 2. Ahdo-tb-cdzkpcpd cardiac enlargement with predominantly ?? biventricular dilatation. ?? 3. Enlarged main pulmonary artery suggesting pulmonary arterial ?? hypertension. ?? 4. Mild mosaic attenuation of the lung parenchyma, most likely ?? secondary to partial expiratory phase. No focal pneumonia or abnormal ?? opacities otherwise. No effusions. ?? 5. Cholelithiasis. ? Electronically signed by: ??Diego Montana MD ??06/18/2024 04:27 PM EST RP ?? Workstation: [id number] ? Dictated By: ?Diego Montana MD ? Signed By: ?<Electronically signed by Diego Montana MD in OV> ?06/18/24 1627 ? DD/ 1534 ? TD/TT: 06/18/24 1545 ? Infection Control Practitioner: ? 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 Armando, Stephania - 06/18/[address] [address] [address] Scan Report Signed Patient: Cleo Rock JMR#: [id number] : 1990Acct:[id number] Age/Sex: 33 / FADM Date: 06/18/24 Loc: HO.ED Attending Dr: Ordering Physician: Michela Rouse Date of Service: 06/18/24 Procedure(s): CT angio chest PE protocol Accession Number(s): [id number] cc: Marisa Livingston MD; Michela Rouse Report Number: [id number]: Total DLP = 266.00 mGy-cm EXAMINATION: CT [...] pulmonary embolus or acute aortic syndrome. 2. Pfwy-ue-sgcttixh cardiac enlargement with predominantly biventricular dilatation. 3. [...] 06/18/24 1627 DD/ 1534 TD/TT: 06/18/24 1545 Infection Control Practitioner: [facility] External Provider IMG CT PROCEDURES Final Result * XR Chest 2 Views (06/18/2024 11:06 AM EST) Only the most recent of3 resultswithin the time period is included. Anatomical Region Laterality Modality Chest Radiographic Angelita ging 06/18/2024 11:0 6 AM EST Narrative 06/18/2024 11:19 AM EST ? [facility] ?[address] ?[place] [address] ?XRay Report ? Signed ? Patient: Cleo Rock ?MR#: ?? [id number] ? : 1990 ?Acct:[id number] ? Age/Sex: 33 / F ?ADM Date: 06/18/24 ? Loc: HO.ED ? Attending Dr: ? Ordering Physician: Bay Christina ?? Date of Service: 06/18/24 ?? Procedure(s): XR chest 2V ?? Accession Number(s): [id number] ? cc: Marisa Livingston MD; Sanford,Bay B PA ? EXAMINATION: ?? XR CHEST ? CLINICAL [...] DD/ 1106 ? TD/TT: 06/18/24 1113 ? Infection Control Practitioner: ? 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 Donotjanellinterpreter, Image - 06/18/[address] [address] XRay Report Signed Patient: Cleo Rock JMR#: [id number] : 1990Acct:[id number] Age/Sex: 33 / FADM Date: 06/18/24 Loc: .ED Attending Dr: Ordering Physician: Bay Christina Date of Service: 06/18/24 Procedure(s): XR chest 2V Accession Number(s): [id number] cc: Marisa Livingston MD; Bay Christina EXAMINATION: [...] 06/18/24 1116 DD/ 1106 TD/TT: 06/18/24 1113 Infection Control Practitioner: [facility] External Provider IMG XR PROCEDURES Final Result * Influenza A B2 ID NOW (Davis) (06/18/2024 10:52 AM EST) IDNOW SERIAL# [id number] [facility] Influenza A Negative Negative [facility] Influenza B2 Negative Negative [facility] Influenza A B2 Note See Note [facility] Comment:The Davis ID NOW In [...] GENERAL ORDERABLES Final Result Performing Organization Address [facility] de Phone Number [facility] [address] [place] [phone] * D Dimer High Sensitivity (06/18/2024 10:52 AM EST) Only the most recent of2 resultswithin the time period is included. D Dimer High Sensitivity 232 NG/ML [facility] Comment:D-DIMER HS REFERENCE RANGENote: Our [...] ORDERAB LES Final Result Performing Organization Address [facility] de Phone Number [facility] [address] [place] [phone] * COVID-19 ID NOW (DAVIS) (06/18/2024 10:52 AM EST) IDNOW SERIAL# [id number] [facility] COVID-19 TEST Negative Negative [facility] COVID-19 NOTE See Note [facility] Comment: Results are for the identification of SARS-CoV2 RNA. TheSARS-CoV2 RNA is generally detectable in respiratory samplesduring the acute phase of infection. Positive results areindicative of the presence of SARS-CoV-2 RNA; clinicalcorrelation with patient history and other diagnosticinformation is necessary to determine patient infectionstatus. Positive results do not rule out bacterial infectionor co- infection with other viruses.Testing facilities within the [facility] and itsterritories are required to report [...] use by authorized laboratories.Testing performed on the Deem ID NOW utilizing NAAT. 06/18/2024 10:5 2 AM EST 06/18/2024 10:56 AM EST us Generic External Data Provider LAB MOLECULAR DELMI GNOSTICS ORDERABLES Final Result [facility] [address] [place] [phone] * (ABNORMAL) CBC auto differential (06/18/2024 10:52 AM EST) Only the most recent of2 resultswithin the time period is included. White Blood Count 6.7 4.8 - 10.8 X10*3/uL [facility] Red Blood Count 4.66 4.20 - 5.50 X10*6/uL [facility] Hemoglobin 9.1(L) 12.0 - 16.0 g/dl [facility] Hematocrit 31.5(L) 37.0 - 47.0 % [facility] Mean Corpuscular Volume 67.6(L) 80.0 - 98.0 fL [facility] Mean Corpuscular Hemoglobin 19.5(L) 27.0 - 33.0 pg [facility] Mean Corpuscular HGB Conc 28.9(L) 31.0 - 35.0 g/dl [facility] Red Cell Distribution Width 19.1(H) 11.0 - 16.0 % [facility] Platelet Count 334 160 - 400 X10*3/uL [facility] Mean Platelet Volume 9.0(L) 9.4 - 12.3 fL [facility] Neutrophils Percent Auto 63.8 45 - 73 % [facility] Imm Gran Pct Auto 0.1 0.0 - 0.4 % [facility] Lymphocytes Percent Auto 24.5 20 - 40 % [facility] Monocytes Percent Auto 6.1 2 - 11 % [facility] Eosinophils Percent Auto 5.2(H) 0 - 4 % [facility] Basophils Percent Auto 0.3 0 - 2 % [facility] NRBC Pct Auto 0.0 0.0 - 0.2 /100WBC [facility] Neutrophils Absolute Auto 4.3 2.0 - 8.3 x10*3/uL [facility] Imm Gran Abs Auto 0.01 0.00 - 0.03 X10*3/uL [facility] Lymphocytes Absolute Auto 1.6 1.2 - 4.9 X10*3/uL [facility] Monocytes Absolute Auto 0.4 0.1 - 1.2 X10*3/uL [facility] Eosinophils Absolute Auto 0.4 0.0 - 0.4 X10*3/uL [facility] Basophils Absolute Auto 0.0 0.0 - 0.2 X10*3/uL [facility] NRBC Abs Auto 0.000 0.0 - 0.012 X10*3/uL [facility] 06/18/2024 10:5 2 AM EST 06/18/2024 10:56 AM EST Generic External Data Provider LAB BLOOD ORDERAB LES Final Result Performing Organization Address [facility] Co de Phone Number [facility] [address] [place] [phone] * (ABNORMAL) Prothrombin Time-INR (06/18/2024 10:52 AM EST) Prothrombin Time 13.5(H) 10.9 - 12.4 SEC [facility] INTERNATIONAL NORM RATIO 1.2(H) 0.9 - 1.1 [facility] Comment:INTERNATIONAL NORMAL IZED RATIO (INR) [...] ORDERAB LES Final Result Performing Organization Address City/[facility] Co de Phone Number [facility] [address] [place] [phone] * hCG, Total, Quantitative (06/18/2024 10:52 AM EST) HCG Quantitative <2 mIU/mL [facility] Comment:Weeks post LMP Appro ximate hCG(Last Menstrual Period) Range (mIU/ml)3 - 4 weeks 9 - 1304 - 5 weeks 75 - 2,6005 - 6 weeks 850 - 20,8006 - 7 weeks 4000 - 100,2007 - 12 weeks 11,500 - 289,79008 - 16 weeks 18,300 - 137,60410 - 29 weeks (2nd trimester) 1,400 - 53,22831 - 41 weeks (3rd trimester) 940 - [...] Provider LAB BLOOD ORDERAB LES Final Result [facility] [address] [place] [phone] * (ABNORMAL) Basic Metabolic Panel (06/18/2024 10:52 AM EST) Sodium 144 135 - 145 mmol/L [facility] Potassium 3.7 3.3 - 5.1 mmol/L [facility] Chloride 112(H) 96 - 108 mmol/L [facility] Carbon Dioxide 24 22 - 29 mmol/L [facility] Anion Gap 12 12 - 20 [facility] Urea Nitrogen (BUN) 9 9 - 16 mg/dL [facility] Creatinine, Serum 0.61 0.5 - 1.4 mg/dL [facility] Creatinine Clr Calc Pharmacy 135.9 [facility] Comment:Provided height and weight: 162.56 cm,85.2 kg.eGFR (calculated from the MDRD study equation) and eCrCl(calculated from the Cockcroft-Gault equation) are based ondifferent parameters and may not yield comparable results.If eCrCl result is absurd, please check patient'sheight/weight. Estimated Glomerular Filt Rate >60 [facility] Comment:Chronic Kidney Disea se: Estimated GFR < 60 mL/min/1.10w0Cmgngp Kidney Disease: Estimated GFR < 15 mL/min/1.73m2 Glucose 88 60 - 115 mg/dL [facility] Calcium 9.2 8.4 - 10.2 mg/dL [facility] 06/18/2024 10:5 2 AM EST 06/18/2024 10:56 AM EST us Generic External Data Provider LAB BLOOD ORDERAB LES Final Result [facility] [address] [place] [phone] * Pertussis Bordetella toxin (PT) Antibody (IgG), Immunoassay (06/17/2024 3:32 PM EST) [facility] Pertussis Testing 2 IU/mL [facility] Comment: REFERENCE RANGE:: ? Age (years) ??(IU/mL) ??IgG: < or = 10 ?<66 ?11-59 ? <43 ? > or = 60 ?<32This assay cannot be used to assess protective immunity topertussis because the specific antibodies and antibody levelsthat correlate with protection have not been well defined.The primary intent of the assay is to aid in the diagnosisof infection following natural exposure to Bordetellapertussis. The indicated PT IgG reference ranges reflect [id number] percentile of antibody levels in sera from healthychildren and blood donors; thus, levels above the referencerange suggest recent infection or vaccination within thelast few months.This test was developed and its analytical performancecharacteristics have been determined by [employer].It has not been cleared or approved by FDA. This assay hasbeen validated pursuant to the CLIA regulations and isused for clinical purposes.For additional information, please refer tohttp://education.[facility]/faq/KOW611.(This link is being provided for informational/educational purposes only.)THIS TEST WAS PERFORMED AT:[employer]room [id number] CELINA COSTA ??[phone] HUSSEIN MD,PHD,MARISOL Blood Venous blood specimen / Unknown 06/17/2024 3:32 PM EST 06/17/2024 3:59 PM EST Result [facility] Jaki Cruz MD LAB BLOOD ORDERABLES Final Result Performing Organization Address [facility] [place] Number [facility] [address] [place] [phone] * C-reactive Protein (06/17/2024 3:32 PM EST) [facility] C Reactive Protein <0.10 < or = 0.50 mg/dL [facility] Blood Venous blood specimen / Unknown 06/17/2024 3:32 PM EST 06/17/2024 3:59 PM EST Result [facility] Jaki Cruz MD LAB BLOOD ORDERABLES Final Result Performing Organization Address [facility] [address] [place] [phone] * Influenza B (ID NOW Rapid Molecular) (06/17/2024 2:36 PM EST) [facility] Influenza B Negative Negative, Indeterminate [facility] Swab 06/17/2024 2:36 PM EST Result [facility] Jaki Cruz MD POINT OF CARE TEST ENTER/E DIT ORDERABLES Final Result Performing Organization Address [facility] Phone Number [facility] [address] [place] [phone] * Influenza A (ID NOW Rapid Molecular) (06/17/2024 2:36 PM EST) [facility] Influenza A Negative Negative, Indeterminate [facility] Swab 06/17/2024 2:36 PM EST Result [facility] Jaki Cruz MD POINT OF CARE TEST ENTER/E DIT ORDERABLES Final Result Performing Organization Address City/[facility] [address]/ZIP Co de Phone Number [facility] [address] [place] [phone] * POCT rapid strep A manually resulted (06/17/2024 2:36 PM EST) Pathologist [facility] Rapid Strep A Screen Negative Negative, None Detected Swab 06/17/2024 2:36 PM EST Jaki Cruz MD POINT OF CARE TEST ENTER/E DIT ORDERABLES Final Result * POCT Rapid Covid-19 BinaxNOW (06/17/2024 2:09 PM EST) [facility] COVID Ag Negative Nares 06/17/2024 2:09 PM EST Jaki Cruz MD POINT OF CARE TEST ENTER/E DIT ORDERABLES Final Result * Strep A Nucleic Acid (05/26/2024 5:39 PM EST) Pathologist [facility] IDNOW SERIAL# [id number] [facility] Strep A Nucleic Acid Negative Negative [facility] Comment:All test results mus t be correlated with clinical findings.This test has not been evaluated for monitoring treatment ofinfection.Additional follow-up testing using the culture method isrequired if the result is negative and clinical symptomspersist, or in the event of an acute rheumatic feveroutbreak. 05/26/2024 5:3 9 PM EST 05/26/2024 5:46 PM EST Generic External Data Provider LAB MICROBIOLOGY - GENERAL ORDERABLES Final Result Performing Organization Address City/[facility] [address]/ZIP Co de Phone Number [facility] [address] [place] [phone] * (ABNORMAL) SARS-CoV-2 RNA, Influenza A/B, and RSV RNA, Ql NAAT (05/26/2024 5:39 PM EST) Influenza A PCR POSITIVE(A) Negative [facility] Influenza B PCR NEGATIVE Negative [facility] Resp Syncy Virus RNA Qual PCR NEGATIVE Negative [facility] SARS COV2 PCR NEGATIVE Negative [facility] Comment:All test results mus t [...] use by authorized laboratories.Testing performed on the [employer] GeneXpert utilizingreal-time RT-PCR.All SARS CoV2 and positive influenza A/B results arereported to [facility]. 05/26/2024 5:39 PM EST 05/26/2024 5:46 PM EST us Generic External Data Provider LAB MICROBIOLOGY - GENERAL ORDERABLES Final Result [facility] [address] [place] [phone] * Pap Smear (08/05/2023 3:15 PM EDT) 08/05/2023 3:15 PM EDT 08/07/2023 1:00 PM EDT Narrative [facility] - 08/18/2023 1:17 PM EDT ----- ------- Name: lCeo Rock ? Age/Sex: 32/F ? : 1990 Unit#: [id number] ?? Attend Dr: NaomiAmaris MARA ?Re08/05/23 ?Status: DEP REF ? Location: HO.LNP ?Disch: ? ----- ------- SPEC : [id number] ? RECD: 08/07/23-1300 ? STATUS: ??SOUT ? REQ NUM: [id number] ? MEAGAN: 08/05/23-4865 ? SUBM DR: NaomiAmaris MARA ? ENTERED: ??08/07/23-7738 ?SP TYPE: Pap Smr ?OTHR DR: Marisa [...] 66, 68) ?? HPV testing performed by [facility], [place], [place]. ??See reference laboratory ?? portion of the EMR for entire report. ?Clinical Information LMP: 07/17/23 Previous PAP test: 09/17/17, WNL ? Material Received ?? ThinPrep-Cervical Copies To: ?? Marisa Livingston MD ?? [address] [facility] ?? [place] [address] ? Amaris Salgado CNM ?? [address] [facility] [address] [facility] ?? [place] [address] ?? [phone] ----- ------- Signed (signature on file) IDANIA Hutchinson (ASCP) 08/18/23 1317 ? ----- ------- ? END OF REPORT ? us Generic External Data Provider LAB CYTOLOGY GILBERT UGARTE Final Result Performing Organization Address [facility] Co de Phone Number [facility] [address] [place] [address] [phone] * HIV Ab/Ag (RIAJ MARIA) (12/09/2022 1:30 PM EDT) HIV AB/AG Nonreactive Nonreactive [facility] Comment:HIV-1 p24 Ag and/or HIV-1/HIV-2 Ab not detected.A test result that is nonreactive does not exclude thepossibility of exposure to or infection with HIV-1 and/orHIV-2. Nonreactive results in this assay for individualswith prior exposure to HIV-1 and/or HIV-2 may be due toantigen and antibody levels that are below the limit ofdetection of this assay.The [place] [employer] HIV Ag/Ab Combo assay result andsupplemental assay results should be interpreted inconjunction with the patient's clinical presentation,history and other laboratory results. If the results areinconsistent with clinical evidence, additional testing issuggested to confirm the result. 12/09/2022 1:30 PM EDT 12/09/2022 4:12 PM EDT us Marisa Livingston MD LAB BLOOD ORDERABLES Fin al Result Performing Organization Address [facility] [address]/[facility] Co de Phone Number [facility] [address] [place] [address] [phone] * Lipid Panel, Standard (12/09/2022 1:30 PM EDT) Triglycerides 56 mg/dL [facility] Comment:Desirable Triglyceri de: less than 150 mg/dLBorderline High Triglyceride 150-199 mg/dLHigh Triglyceride: 200-499 mg/dLVery High Triglyceride: greater than or equal to 5OO mg/dL Cholesterol 114 mg/dL [facility] Comment:Desirable Cholestero l: less than 200 mg/dLBorderline High Cholesterol: 200-239 mg/dLHigh Cholesterol: greater than 239 mg/dL LDL Cholesterol Calculated 65 mg/dl [facility] Comment:Desirable LDL: less than 100 mg/dLNear Optimal/Above Optimal LDL: 110- 129 mg/dLBorderline High LDL: 130-159 mg/dLHigh LDL: 160-189 mg/dLVery High LDL: greater than or equal to 190 mg/dL HDL Cholesterol 38 mg/dL [facility] Comment:Desirable HDL: great er than 40 mg/dL Note: This HDL assay may give artificially low results in patients with liver disease. 12/09/2022 1:30 PM EDT 12/09/2022 4:12 PM EDT Marisa Livingston MD LAB BLOOD ORDERABLES Fin al Result [facility] [address] [place] [address] [phone] from Last 3 Months or Most Recently Relevant to Health Maintenance Insurance [facility] C3 DENTAL-[facility] MEDICAID STAND ADULT Care Teams Video Production Specialist Relationship Specialty Start Date End Date Marisa Livingston MD [address] [place] [phone] PCP - General Family Medicine 03/12/19 Perez Vergara RN [address] [place] [phone] Sample BuilderCustoms House Broker 06/30/24
--- OUTSIDE RECORDS SUMMARY | 2024-07-01 10:18 | XMS_ITS | Encounter Summary ---
Author Organization [employer] Address [address] [facility] 7 [place] [address] Care Team Providers Care Employment Educational Coord Name Role Phone Marisa Livingston MD Primary Care Provider + Reason for Visit * Reason Comments Care [facility]ination [facility] telephone call outreach Encounter Details Date Type Department Care Team (Latest Contact Info) Description 06/29/2024 Patient Outreach [facility] [address] [place] [address] Marisa Livingston MD [address] [place] [address] Care Coordination ([facility] telephone call outreach) Social History Tobacco [...] encounter Progress Notes * Stacey Lloyd - 06/29/2024 3:22 PM EST CHW Stacey Lloyd placed outbound call to patient. No answer at this time. LVM introducing herself from [facility] CM Department, reminding patient of initial assessment appt via telephone on 06/30/24 @ 1:00PM with CM Adult Complex Care program services. Requested call back to , as well as for any additional questions or concerns. documented in this encounter Plan of Treatment Upcoming Encounters Date Type Department Care Team (Late st Contact Info) Description 07/02/2024 12:15 PM EST Office Visit [facility] [address] [place] [address] Marisa Livingston MD [address] [place] [phone] 07/13/2024 3:30 PM EST Office Visit [facility] [address] [place] [address] Marisa Livingston MD [address] [place] [address] documented as of this encounter Visit Diagnoses Not on filedocumented in this encounter Additional Health Concerns Assessment Noted Time PHQ-9 Depression Total Score: 17 024 9:31 AM EST documented as of this encounter Care Teams Employment Educational Coord Relationship Specialty Start Date End Date Marisa Livingston MD [address] [place] [address] PCP - General Family Medicine 03/12/19 documented as of this encounter
--- OUTSIDE RECORDS SUMMARY | 2024-07-01 10:18 | XMS_ITS | Encounter Summary ---
Author Organization [employer] Address [address] [facility] [facility] [address] [place] [address] Care Team Providers Care Bakery Manager Name Role Phone Marisa Livingston MD Primary Care Provider + Encounter Details Date Type Department Care Team ([facility] st Contact Info) Description 06/21/2024 Telephone [facility] MEDICINE [address] [place], [place] [phone] Jaki Cruz MD [address] [place] [address] Social History Tobacco Use Types Packs/Day Years [...] encounter Miscellaneous Notes * Telephone Encounter - Laurie Hernandez RN - 06/21/2024 10:13 AM EST TCx2PM placed to pt regarding message below per Dr. Cruz (pt reports no site interpreter needed, can understanding. Pt verbalized understanding. No questions or concerns expressed at this time. Pt to F/U as needed. TCx1AM placed to pt regarding message below per Dr. Cruz. No answer. Voice message left for pt to return call to [facility]. RN will forward to Walk In Nurses to make second attempt. Pt was sent to ER by me for elevated d dimer CT was negative for PE but showed enlargement of the heart. Please let pt know and let her know I am referring her to a ornament setter (heart doctor) to seeif this might be causing her symptoms. Thank you. * Telephone Encounter - Jaki Cruz MD - 06/21/2024 9:35 AM EST Pt was sent to ER by me for elevated d dimer CT was negative for PE but showed enlargement of the heart. Please let pt know and let her know I am referring her to a ornament setter (heart doctor) to seeif this might be causing her symptoms. Thank you. documented in this encounter Plan of Treatment Upcoming Encounters Date Type Department Care Team (Late st Contact Info) Description 07/02/2024 12:15 PM EST Office Visit [facility] MEDICINE [address] [place] [address] Marisa Livingston MD [address] [place] [address] [phone] 07/13/2024 3:30 PM EST Office Visit [address] [address] Marisa Livingston MD [address] [place] [address] [phone] documented as of this encounter Visit Diagnoses Not on filedocumented in this encounter Additional Health Concerns Assessment Noted Time PHQ-9 Depression Total Score: 17 024 9:31 AM EST documented as of this encounter Care Teams Bakery Manager Relationship Specialty Start Date End Date Marisa Livingston MD [address] [place] [phone] PCP - General Family Medicine 03/12/19 documented as of this encounter
--- OUTSIDE RECORDS SUMMARY | 2024-07-01 10:18 | XMS_ITS | Encounter Summary ---
Author Organization [employer] Address [address] [facility] [address] 7 [place] [address] Care Team Providers Care Multiplex Operator Name Role Phone Marisa Livingston MD Primary Care Provider + Reason for Visit * Reason Onset Date Comments Care Management 06/21/2024 [facility]- chart revi ew Encounter Details Date Type Department Care Team ([facility] st Contact Info) Description 06/21/2024 Telephone [facility] MEDICINE [address] [place] [address] Perez Vergara RN [address] [place] [address] Care Management (C3CM- chart review) Social History Tobacco Use Types Packs/Day Years [...] encounter Miscellaneous Notes * Telephone Encounter - Perez Vergara RN - 06/21/2024 9:02 AM EST GEOVANY Vergara RN, performed chart review, in anticipation of initial assessment with patient, as patient has stratified for C3 Adult Complex Care through the ADT feed. History significant for numbness of hand, moderate persistent asthma without complication, recurrent UTI, DUB, morbid obesity, b lurring of visual image, chronic low back pain, migraine without aura, grief, bipolar depression, anemia. Specialists include [facility] hematology/oncology, [facility] pulmonology, [facility] SUPERVISOR SPECIALTY PLANT, [facility] physical therapy, [facility] optometry, nutrition, [facility] dental. ED visits within the last 12 months include [facility] on 06/18/24, and [facility] on 05/26/24. Last appointment in PCP office on 06/17/24. Next appointment scheduled for 07/02/24 @12:15 PM for f/u with PCP. documented in this encounter Plan of Treatment Upcoming Encounters Date Type Department Care Team (Late st Contact Info) Description 07/02/2024 12:15 PM EST Office Visit [facility] MEDICINE [address] [place] [address] Marisa Livingston MD [address] [place], [place] [phone] 07/13/2024 3:30 PM EST Office Visit [facility] MED[facility]INE [address] [place], [place] [phone] Marisa Livingston MD [address] [place] [address] documented as of this encounter Visit Diagnoses Not on filedocumented in this encounter Additional Health Concerns Assessment Noted Time PHQ-9 Depression Total Score: 17 024 9:31 AM EST documented as of this encounter Care Teams Multiplex Operator Relationship Specialty Start Date End Date Marisa Livingston MD [address] [place] [address] [phone] PCP - General Family Medicine 03/12/19 documented as of this encounter
--- OUTSIDE RECORDS SUMMARY | 2024-07-01 10:18 | XMS_ITS | Encounter Summary ---
Author Organization [employer] Address [address] [place] [address] 7 [place] [address] Care Team Providers Care Grocery Packer Name Role Phone Marisa Livingston MD Primary Care Provider + Perez Vergara RN Unavailable [phone] Encounter Details Date Type Department Care Team (Latest Contact Info) Description 02/27/2022 Abstract [facility] CONVERSIONS Dental, Provider, DDS Social History Tobacco [...] Description 07/02/2024 12:15 PM EST Office Visit [address] [address] Marisa Livingston MD [address] [place] [phone] 07/13/2024 3:30 PM EST Office Visit [address] [address] Marisa Livingston MD [address] [place] [address] [phone] documented as of this encounter Visit Diagnoses Not on filedocumented in this encounter Care Teams Grocery Packer Relationship Specialty Start Date End Date Marisa Livingston MD [address] [place] [address] PCP - General Family Medicine 03/12/19 Perez Vergara RN [address] [place] [address] Oceanographer GeologicalFusing Machine Tender 06/30/24 documented as of this encounter
--- OUTSIDE RECORDS SUMMARY | 2024-07-01 10:18 | XMS_ITS | Encounter Summary ---
Author Organization [employer] Address [address] [place] [address] [address] [place] [address] Care Team Providers Care Cellular Equipment Repairer Name Role Phone Marisa Livingston MD Primary Care Provider + Perez Vergara RN Unavailable [phone] Reason for Visit * Reason Onset Date Comments Care Management 06/30/2024 C3CM- initial as sessment/enrollment Encounter Details Date Type Department Care Team ([facility] st Contact Info) Description 06/30/2024 Telephone [facility] MEDICINE [address] [place] [address] Marisa Livingston MD [address] [place] [address] Care Management (C3- initial assessment/enrollment) Social History Tobacco Use Types Packs/Day Years [...] Telephone Encounter - Perez Vergara RN - 06/30/2024 2:18 PM EST GEOVANY Vergara RN, provided notification to PCP Dr. Livingston of patient's enrollment into C3 Complex Care Program. GEOVANY Vergara RN, completed care plan and sent to HIM to be scanned into the medical record. PCP notified and awaiting review from provider. CM plan - assist with scheduling appointment with specialists (cardiology, hematology). - provide patient with appointment reminders and provide assistance with transportation as needed. - provide patient with education on disease processes and management. - provide resources based on positive SDOH needs. * Telephone Encounter - Perez Vergara RN - 06/30/2024 2:18 PM EST GEOVANY Vergara RN placed outbound call to patient for agreed upon time for initial assessment for enrollment into Adult Care Management Program. Patient's name, , and address were verified. Cleo is a 33 y.o. female with hx of numbness of hand, moderate persistent asthma without complication,recurrent UTI, DUB, morbid obesity, blurring of visual image, chronic low back pain, migraine without aura, grief, bipolar depression, anemia. Patient report being followed by behavioral health with [facility]. She is established by a therapist and psychiatrist which she sees every 2 weeks. Pt reports doing well emotionally today, denies any SI/HI. She states she is able to contact her therapist as needed and confirms having crisis # to use as needed. Patient being seen by a neurologist about 1-2 years ago for her migraines. Patient reports being seen at [facility] on 06/18/24 for f/u on lab results that were ordered by Dr. Cruz at the walk in center. Patient reports being prescribed prednisone which state she is taking with good effect. Patient also reports use of inhalers (albuterol, advair). Per patient has appointment tomorrow with pulmonology and denies any barriers toattending appointment. Patient also aware of her f/u with PCP this coming Friday. Patient was recently referred to cardiology and hematology. Patient states she was advised that she will be called with an appointment but has not heard back from either office. CM noted no pending appointment in [facility]. Patient is agreeable for CM to call these offices to schedule follow up appointments. Patient denies any vision or dental concerns. Patient uses glasses and last eye exam was last year here at [facility]. Patient reports last dental exam here at [facility] about 5 months ago. Patient is mostly independent with ADL's. She states that at time she would need help with cleaning due to extreme lower back pain.Patient denies use or need of any assistive devices. Per pt, was prescribed a nebulizer machine in the past that she never picked up. Patient states that prescription has but agreed to consult with icebox man tomorrow. She report gaining weight due to anxiety and use of prednisone to treat asthma. She followed nutrition in the past and would like to reestablish care. CM will send message to nutrition to contact patient with appointment. Patient with several SDOH needs. She reports needing assistice with housing, utilities and food. CHW will outreach to assess and provide resources.Patient denies any immediate needs or concerns at this time. Care management program explained and contact information given. Patient verbalizes understanding, and able to repeat back to policy writer typist. A follow up call will be placed within 10 days, patient agrees with plan. documented in this encounter Plan of Treatment Upcoming Encounters Date Type Department Care Team (Late st Contact Info) Description 07/02/2024 12:15 PM EST Office Visit [address] [address] Marisa Livingston MD [address] [place] [address] [phone] 07/13/2024 3:30 PM EST Office Visit [facility] MEDICINE [address] [place] [address] [phone] Marisa Livingston MD [address] [place] [address] [phone] documented as of this encounter Visit Diagnoses Not on filedocumented in this encounter Additional Health Concerns Assessment Noted Time PHQ-9 Depression Total Score: 17 024 9:31 AM EST documented as of this encounter Care Teams Cellular Equipment Repairer Relationship Specialty Start Date End Date Marisa Livingston MD [address] [place] [address] [phone] PCP - General Family Medicine 03/12/19 Perez Vergara RN [address] [place] [address] Biometrics SpecialistHand Spray Operator 06/30/24 documented as of this encounter
--- OUTSIDE RECORDS SUMMARY | 2024-07-01 10:18 | XMS_ITS | Encounter Summary ---
Author Organization [employer] Address [address] 7[address] [place] [address] Care Team Providers Care Cork Tipper Name Role Phone Marisa Livingston MD Primary Care Provider + Perez Vergara RN Unavailable [phone] Encounter Details Date Type Department Care Team (Late st Contact Info) Description 07/19/2022 Abstract [facility] ADULT DENTAL [address] [place] [address] Berlin Hagen, DMD [address] [place] [address] Social History Tobacco Use Types Packs/Day Years [...] Description 07/02/2024 12:15 PM EST Office Visit [facility] MEDICINE [address] [place] [phone] Marisa Livingston MD [address] [place] [phone] 07/13/2024 3:30 PM EST Office Visit [facility] MED[facility]INE [address] [place] [phone] Marisa Livingston MD [address] [place] [address] [phone] documented as of this encounter Visit Diagnoses Not on filedocumented in this encounter Additional Health Concerns Assessment Noted Time PHQ-9 Depression Total Score: 4 07/03/19 23 10:39 AM EST documented as of this encounter Care Teams Cork Tipper Relationship Specialty Start Date End Date Marisa Livingston MD [address] [place] [phone] PCP - General Family Medicine 03/12/19 Perez Vergara RN [address] [place] [phone] Sheep Farm WorkerAirport Traffic Controller 06/30/24 documented as of this encounter
--- OUTSIDE RECORDS SUMMARY | 2024-07-01 10:18 | XMS_ITS | Encounter Summary ---
Author Organization [email or web address] Address [address] [address] Care Team Providers Care Shingle Inspector Name Role Phone Marisa Livingston MD Primary Care Provider + Perez Vergara RN Unavailable [phone] Reason for Visit * Reason Onset Date Comments Appointment 07/12/2022 Encounter Details Date Type Department Care Team (Late st Contact Info) Description 07/12/2022 Telephone [facility] ADULT DENTAL [address] [place] [address] Yeison Arnold, DMD [address] [place] [address] Appointment Social History Tobacco Use Types Packs/Day [...] appt with oral surgeon. Call placed to rickrick on 07/10. She wasunable to answer call due to being in the hospital. Would like to schedule. Called Aminta to transfercall but no answer. Following up with message. documented in this encounter Plan of Treatment Upcoming Encounters Date Type Department Care Team (Late st Contact Info) Description 07/02/2024 12:15 PM EST Office Visit [facility] MEDICINE [address] [place] [address] Marisa Livingston MD [address] [place] [address] 07/13/2024 3:30 PM EST Office Visit [address] [address] Marisa Livingston MD [address] [place] [phone] documented as of this encounter Visit Diagnoses Not on filedocumented in this encounter Additional Health Concerns Assessment Noted Time PHQ-9 Depression Total Score: 4 07/03/19 23 10:39 AM EST documented as of this encounter Care Teams Shingle Inspector Relationship Specialty Start Date End Date Marisa Livingston MD [address] [place] [phone] PCP - General Family Medicine 03/12/19 Perez Vergara RN [address] [place] [address] Tube RepairerBed And Breakfast Operator 06/30/24 documented as of this encounter
--- OUTSIDE RECORDS SUMMARY | 2024-07-01 10:18 | XMS_ITS | Encounter Summary ---
Author Organization [employer] Address [address] [facility] [address] [place] [address] Care Team Providers Care Rolling Down Machine Operator Name Role Phone Marisa Livingston MD Primary Care Provider + Reason for Visit * Reason Onset Date Comments Nurse Triage 06/17/2024 SOB Encounter Details Date Type Department Care Team ([facility] st Contact Info) Description 06/17/2024 Telephone [facility] [address] [place] [address] Amirah Pugh, CHAPITO [address] [place] [address] Nurse Triage (SOB) Social History Tobacco Use [...] Center on 05/26 and was directed to [facility], tested positive forFlu A and given [...] g 2 ergocalciferol (Vitamin D2) 1.25 MG (19821 UT) capsule TAKE 1 CAPSULE(1.25 MG) BY [...] NEEDED FOR WHEEZING 180 mL 2 Nebulizers ([employer] Aerosol Delivery System) [facility] USE DIRECTED. OXcarbazepine (Trileptal) 300 MG tablet [...] stay past 3:15 as she needs to continuous pickling line pickler her children. Since symptoms have been ongoing [...] Description 07/02/2024 12:15 PM EST Office Visit [facility] MEDICINE [address] [place] [phone] Marisa Livingston MD [address] [place] [phone] 07/13/2024 3:30 PM EST Office Visit [facility] MEDICINE [address] [place] [address] Marisa Livingston MD [address] [place] [phone] documented as of this encounter Visit Diagnoses Not on filedocumented in this encounter Additional Health Concerns Assessment Noted Time PHQ-9 Depression Total Score: 17 024 9:31 AM EST documented as of this encounter Care Teams Rolling Down Machine Operator Relationship Specialty Start Date End Date Marisa Livingston MD [address] [place] [phone] PCP - General Family Medicine 03/12/19 documented as of this encounter
--- OUTSIDE RECORDS SUMMARY | 2024-07-01 10:18 | XMS_ITS | Encounter Summary ---
Author Organization [employer] Address [address] [place] [address] [address] [address] Care Team Providers Care Pulley Man Name Role Phone Marisa Livingston MD Primary Care Provider + Reason for Referral * Consultation (Routine) - Authorized Specialty Diagnoses / Procedures Referred By Nadya t Referred To Contact Cardiology Diagnoses Cardiac enlargement Jaki Ferguson MD [address] [place] [address] Phone: tel: fax: [facility] [address] [place] [address] Phone: tel: fax: Referral ID Status Reason Start Date Expiration Date Visits Requested Visits Authorized [id number] Authorized Specialty Services Required 06/21/2024 06/21/2025 6 6 * Consultation (Routine) - Authorized Specialty Diagnoses / Procedures Referred By Contac t Referred To Contact Pulmonary Disease Diagnoses Dyspnea on exertion Moderate persistent asthma without complication Jaki Fergsuon MD [address] [place] [address] Phone: tel: fax: [facility] Pulmonary [address] Phone: tel: fax: Referral ID Status Reason Start Date Expiration Date Visits Requested Visits Authorized [id number] Authorized Specialty Services Required 06/17/2024 06/17/2025 6 6 Reason for Visit * Reason Comments Shortness of Breath Encounter Details Date Type Department Care Team (Late st Contact Info) Description 06/17/2024 3:20 PM EST Office Visit [facility] [address] [place] [address] Jaki Ferguson MD [address] [place], [place] [phone] Dyspnea on exertion (Primary Dx); Moderate persistent asthma without complication; Cardiac enlargement Social History Tobacco Use Types Packs/Day Years [...] Center on 05/26/24 and was directed to [facility] ED, tested positive for Flu A and [...] chest pain. 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 [...] without complication Relevant Orders Referral to Pulmonology Cardiac enlargement Addendum 06/21/24 9:33 AM - CT/CT angio chest PE protocol done in ER 06/18/24 to r/o PE revealsed No evidence of pulmonary embolus or acute aortic syndrome. Svom-hx-dmnklxmu cardiac enlargement with predominantly biventricular dilatation. Enlarged main pulmonary artery suggesting pulmonary arterial hypertension. -will refer to cardiology Relevant Orders Referral to Cardiology -No evidence of acute disease process. Persistent SOB and cough. 100% O2 SAT on room air. Addendum 06/21/24 9:35 AM PT contacted to reviewed dimer, worsening anemia [...] Notes * Assessment & Plan Note - Jaki Ferguson MD - 06/21/2024 9:34 AM EST Associated Problem(s): Cardiac enlargement Addendum 06/21/24 9:33 AM - CT/CT angio chest PE protocol done in ER 06/18/24 to r/o PE revealsed No evidence of pulmonary embolus or acute aortic syndrome. Ofau-ln-ytudqfuh cardiac enlargement with predominantly biventricular dilatation. Enlarged main pulmonary artery suggesting pulmonary arterial hypertension. -will refer to cardiology * Addendum Note - Jaki Ferguson MD - 06/17/2024 3:20 PM ESTAddended by: JAKI FERGUSON on: 06/21/2024 09:35 AM Modules accepted: Orders * Assessment & Plan Note - Fawn [...] Description 07/02/2024 12:15 PM EST Office Visit [facility] [address] [place] [phone] Marisa Livingston MD [address] [place] [phone] 07/13/2024 3:30 PM EST Office Visit [facility] [address] [place] [address] Marisa Livingston MD [address] [place] [phone] Scheduled Referrals Name Type Priority Associated Diagnoses Orde r Schedule Referral to Pulmonology Outpatient Referral Routine Dyspnea on exertion Moderate persistent asthma without complication Expected: 06/17/2024 (Approximate), Expires: 06/17/2025 Referral to Cardiology Outpatient Referral Routine Cardiac enlargement Expected: 06/21/2024 (Approximate), Expires: 06/21/2025 documented as of this encounter Procedures Procedure Name Priority Date/Time Associated Diagnosis Comments D DIMER HIGH SENSITIVITY STAT 06/17/2024 3:32 PM EST Dyspnea on exertion CBC WITH AUTO DIFFERENTIAL Routine 06/17/2024 3:32 PM EST Dyspnea on exertion BORDETELLA PERTUSSIS TOXIN (PT) ANTIBODY (IGG), IMMUNOASSAY [...] exertion documented in this encounter Results * Pertussis Bordetella toxin (PT) Antibody (IgG), Immunoassay (06/17/2024 3:32 PM EST) [facility] Pertussis Testing 2 IU/mL [facility] Comment: REFERENCE RANGE:: ? Age (years) [...] The indicated PT IgG reference ranges reflect mtw86ax percentile of antibody levels in sera from healthychildren and blood donors; thus, levels above the referencerange suggest recent infection or vaccination within thelast few months.This test was developed and its analytical performancecharacteristics have been determined by [employer].It has not been cleared or approved by FDA. This assay hasbeen validated pursuant to the CLIA regulations and isused for clinical purposes.For additional information, please refer tohttp://education.GameWith/faq/UGO115.(This link is being provided for informational/educational purposes only.)THIS TEST WAS PERFORMED AT:[email or web address] [id number] CELINA COSTA ??[id number] HUSSEIN MD,PHD,MARISOL Blood Venous blood specimen / Unknown 06/17/2024 3:32 PM EST 06/17/2024 3:59 PM EST Jaki Ferguson MD LAB BLOOD ORDERABLES Final Result Performing Organization Address [facility] Co de Phone Number [facility] [address] [place] [phone] * C-reactive Protein (06/17/2024 3:32 PM EST) [facility] C Reactive Protein <0.10 < or = 0.50 mg/dL [facility] Blood Venous blood specimen / Unknown 06/17/2024 3:32 PM EST 06/17/2024 3:59 PM EST Jaki Ferguson MD LAB BLOOD ORDERABLES Final Result Performing Organization Address [facility] Co de Phone Number [facility] [address] [place] [address] [phone] * (ABNORMAL) CBC auto differential (06/17/2024 3:32 PM EST) White Blood Count 6.9 4.8 - 10.8 X10*3/uL [facility] Red Blood Count 4.52 4.20 - 5.50 X10*6/uL [facility] Hemoglobin 8.8(L) 12.0 - 16.0 g/dl [facility] Hematocrit 30.7(L) 37.0 - 47.0 % [facility] Mean Corpuscular Volume 67.9(L) 80.0 - 98.0 fL [facility] Mean Corpuscular Hemoglobin 19.5(L) 27.0 - 33.0 pg [facility] Mean Corpuscular HGB Conc 28.7(L) 31.0 - 35.0 g/dl [facility] Red Cell Distribution Width 19.4(H) 11.0 - 16.0 % [facility] Platelet Count 346 160 - 400 X10*3/uL [facility] Mean Platelet Volume 9.4 9.4 - 12.3 fL [facility] Neutrophils Percent Auto 60.7 45 - 73 % [facility] Imm Gran Pct Auto 0.3 0.0 - 0.4 % [facility] Lymphocytes Percent Auto 27.4 20 - 40 % [facility] Monocytes Percent Auto 6.4 2 - 11 % [facility] Eosinophils Percent Auto 4.8(H) 0 - 4 % [facility] Basophils Percent Auto 0.4 0 - 2 % [facility] NRBC Pct Auto 0.0 0.0 - 0.2 /100WBC [facility] Neutrophils Absolute Auto 4.2 2.0 - 8.3 x10*3/uL [facility] Imm Gran Abs Auto 0.02 0.00 - 0.03 X10*3/uL [facility] Lymphocytes Absolute Auto 1.9 1.2 - 4.9 X10*3/uL [facility] Monocytes Absolute Auto 0.4 0.1 - 1.2 X10*3/uL [facility] Eosinophils Absolute Auto 0.3 0.0 - 0.4 X10*3/uL [facility] Basophils Absolute Auto 0.0 0.0 - 0.2 X10*3/uL [facility] NRBC Abs Auto 0.000 0.0 - 0.012 X10*3/uL [facility] Blood Venous blood specimen / Unknown 06/17/2024 3:32 PM EST 06/17/2024 3:59 PM EST Jaki Ferguson MD LAB BLOOD ORDERABLES Final Result Performing Organization Address [facility] de Phone Number [facility] [address] [place] [phone] [phone] * D Dimer High Sensitivity (06/17/2024 3:32 PM EST) Pathologist [facility] D Dimer High Sensitivity 232 NG/ML [facility] Comment:D-DIMER HS REFERENCE RANGENote: Our assay reports D-Dimer Units (D- DU).The cut-off value for venous thromboembolic (VTE) disease is230 ng/mL. This value has a very high negative predictivevalue when the patient has a low to moderate clinicalprobability of VTE.The upper limit of normal is 243 ng/mL. Blood 06/17/2024 3:32 PM EST 06/17/2024 3:59 PM EST Jaki Ferguson MD LAB BLOOD ORDERABLES Final Result Performing Organization Address [facility] de Phone Number [facility] [address] [place] [phone] * XR Chest 2 Views (06/17/2024 3:00 PM EST) Anatomical Region Laterality Modality Chest Radiographic Angelita ging 06/17/2024 3:00 PM EST Narrative 06/17/2024 3:55 PM EST ?[facility] ?[address] ?[place] [address] ?XRay Report ? Signed ? Patient: Smith Dino,Cleo J ?MR#: ?? [id number] ? : 1990 ?Acct:[id number] ? Age/Sex: 33 / F ?ADM Date: 01/30/25 ? Loc: HO.HHCX ? Attending Dr: Jaki Ferguson MD ? Ordering Physician: Jaki Ferguson MD ?? Date of Service: 06/17/24 ?? Procedure(s): XR chest 2V ?? Accession Number(s): [id number] ? cc: Jaki Ferguson MD ? EXAMINATION: ??XR CHEST 2 VIEWS [...] DD/ 1500 ? TD/TT: 06/17/24 1520 ? Child Care Development Specialist: ? 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 Armando, Image - 06/17/2024 [place] [address] XRay Report Signed Patient: Cleo Rock JMR#: [id number] : 1990Acct:[id number] Age/Sex: 33 / FADM Date: 06/17/24 Loc: HO.HHCX Attending Dr: Jaki Ferguson MD Ordering Physician: Jaki Ferguson MD Date of Service: 06/17/24 Procedure(s): XR chest 2V Accession Number(s): [id number] cc: Jaki Ferguson MD EXAMINATION: XR CHEST 2 VIEWS HISTORY: [...] 06/17/24 1552 DD/ 1500 TD/TT: 06/17/24 1520 Child Care Development Specialist: Jaki Ferguson MD IMG XR PROCEDURES Final Re sult * POCT rapid strep A manually resulted (06/17/2024 2:36 PM EST) [facility] Rapid Strep A Screen Negative Negative, None Detected Swab 06/17/2024 2:36 PM EST Jaki Ferguson MD POINT OF CARE TEST ENTER/E DIT ORDERABLES Final Result * Influenza B (ID NOW Rapid Molecular) (06/17/2024 2:36 PM EST) [facility] Influenza B Negative Negative, Indeterminate [facility] Swab 06/17/2024 2:36 PM EST Jaki Ferguson MD POINT OF CARE TEST ENTER/E DIT ORDERABLES Final Result [facility] [address] [place] [phone] * Influenza A (ID NOW Rapid Molecular) (06/17/2024 2:36 PM EST) [facility] Influenza A Negative Negative, Indeterminate [facility] Swab 06/17/2024 2:36 PM EST Jaki Ferguson MD POINT OF CARE TEST ENTER/E DIT ORDERABLES Final Result [facility] [address] [place] [phone] * POCT Rapid Covid-19 BinaxNOW (06/17/2024 2:09 PM EST) Rapid COVID Ag Negative Nares 06/17/2024 2:09 PM EST Jaki Ferguson MD POINT OF CARE TEST ENTER/E DIT ORDERABLES Final Result documented in this encounter Visit Diagnoses Diagnosis Dyspnea on exertion- Primary Other dyspnea and respiratory abnormality Moderate persistent asthma without complication Cardiac enlargement Cardiomegaly documented in this encounter Additional Health Concerns Assessment Noted Time PHQ-9 Depression Total Score: 17 024 9:31 AM EST documented as of this encounter Care Teams Pulley Man Relationship Specialty Start Date End Date Marisa Livingston MD [address] [place] [phone] PCP - General Family Medicine 03/12/19 documented as of this encounter
== END 2024-07-01 10:45 | disposition home or self-care (01) ==
PROVIDERS: PCP Internal Medicine; Visit Provider Internal Medicine Pulmonary Disease
DX: J45.909 Unspecified asthma, uncomplicated (principal); R06.01 Orthopnea
CPT/HCPCS: 99214

== ENCOUNTER → 2024-07-01 09:47 | Outpatient (BNVA) | payer MEDICAID, SELFPAY | PROVIDERS: PCP Internal Medicine; Visit Provider Internal Medicine Pulmonary Disease | DX: J45.909 Unspecified asthma, uncomplicated (principal); R06.01 Orthopnea | CPT/HCPCS: 99212 ==

== ENCOUNTER → 2024-07-16 10:04 | Outpatient (REF) | payer MEDICAID, SELFPAY ==
--- NOTE | 2024-07-16 10:06 | CA_ITS ---
Transthoracic Echocardiogram Patient (Last, First, Middle): Cleo Rock J Gender: Female Date of : 1990 Age: 33 Procedure Date: 07/16/2024 Procedure Type: Transthoracic Echocardiogram Location: OP Height: 162.56 cm Weight: 86.18 kg BSA: 1.91 m2 Heart Rate: bpm BP: 124 / 80 mmHg Outreach Liaison: Referring MD: Seymour Parada MD Symptoms: R06.09 - Other forms of dyspnea Study Quality: Adequate Conclusions: - Normal left ventricular cavity size. There is mildly increased left ventricular wall thickness. The left ventricular systolic function is low normal. The visually estimated ejection fraction is between 50-55%. There is no evidence of regional wall motion abnormalities. Diastolic function is normal for age. - Normal right ventricular cavity size and systolic function. Findings Left Ventricle Normal left ventricular cavity size. There is mildly increased left ventricular wall thickness. The left ventricular systolic function is low normal. The visually estimated ejection fraction is between 50-55%. There is no evidence of regional wall motion abnormalities. Diastolic function is normal for age. Right Ventricle Normal right ventricular cavity size and systolic function. Atria The left atrium is normal in size. The right atrium is likely dilated. Aortic Valve The aortic valve structure and function is likely normal. There is no aortic valve stenosis. There is no aortic valve regurgitation. Mitral Valve The mitral valve appears normal. There is no mitral valve regurgitation. There is no mitral valve stenosis. Pulmonic Valve The pulmonic valve is likely normal. There is trace pulmonic valve regurgitation. Tricuspid Valve Normal tricuspid valve structure. There is no tricuspid valve regurgitation. Normal right atrial pressure. There is no evidence of pulmonary hypertension. Great Vessels All visible segments of the aorta are normal in size. The visualized portions of the pulmonary artery and branches are normal. Venous The inferior vena cava is normal in size and collapses greater than 50% with inspiration. Pericardium/Pleural There is no evidence of pericardial effusion. Prior Study Comparison No prior study available for comparison. Measurements 2D Linear Measurements IVSd: 1.10 0.6-0.9/0.6-1.0 cm LVIDd: 5.28 3.9-5.3/4.2-5.9 cm LVIDd Index: 2.76 2.4-3.2/2.2-3.1 cm/m2 LVIDs: 3.50 2.0-3.6 cm LVPWd: 1.10 0.7-1.1 cm Ao Root: 2.70 2.1-3.5 cm LA Diam: 3.40 2.7-3.8/3.0-4.0 cm LAIDs Index: 1.78 1.5-2.3 cm/m2 LV Mass: 282.16 67-162/88-224 g LV Mass Index: 147.73 43-95/49-115 g/m2 LVOT Diam: 2.10 3.0+(-)1.3 cm 2D Systolic Function EF 4C: 57.70 >55% EF 2C: 59.40 >55% EF BiP: 59.30 >55% Mitral Valve MV Pk E: 0.99 MV PK A: 0.71 MV Decel Time: 139.00 E/A: 1.40 E'Lateral: 9.68 E'Medial: 6.85 E/E' Med: 14.50 E/E' Lat: 10.20 PHT: 41.00 MVA PHT: 5.37 Decel [place]: 7.15 Aortic Valve AoV Pk Michael: 1.64 AoV Mn Michael: 1.06 AoV VTI: 0.35 AoV Pk Grad: 11.00 Aov Mn Grad: 5.00 KEY Cont.VTI: 2.01 LVOT LVOT Pk Michael: 0.97 LVOT Mn Michael: 0.72 LVOT VTI: 0.20 LVOT Pk Grad: 4.00 LVOT Mn Grad: 2.00 LVOT Diam: 2.10 LVOT Area: 3.46 Diastolic Function MV Pk E: 0.99 MV Pk A: 0.71 E/A: 1.40 E'Medial: 6.85 E/E' Med: 14.50 E' Laterial: 9.68 E/E' Lat: 10.20 Right Ventricle TAPSE (mm): 20.30 Tricuspid Valve TR Pk Michael: 1.91 TR Pk Grad: 15.00 Great Vessels Aorta Ao Root-2D: 2.70 2.0-3.7 cm Ao Asc: 2.80 2.1-3.4 cm Pulmonary Valve PV Pk Michael: 1.22 Peak PV Grad: 6.00 Updated in Other Vendor System with Status of Final Rangel Dey MD electronically signed on 07/18/2024 6:28:06 AM with status of Final
--- OUTSIDE RECORDS SUMMARY | 2024-07-16 11:09 | XMS_ITS | Encounter Summary ---
Author Organization [employer] Address [address] [place] [address] Care Team Providers Care Core Blower Operator Name Role Phone Marisa Livingston MD Primary Care Provider + Reason for Visit * Reason Onset Date Comments Nurse Triage 06/17/2024 SOB Encounter Details Date Type Department Care Team ([facility] st Contact Info) Description 06/17/2024 Telephone [facility] [address] [place] [address] Amirah Pugh, CH[place]O [address] [place] [address] Nurse Triage (SOB) Social History Tobacco Use [...] Center on 05/26 and was directed to [facility], tested positive forFlu A and given [...] g 2 ergocalciferol (Vitamin D2) 1.25 MG (91481 UT) capsule TAKE 1 CAPSULE(1.25 MG) BY [...] NEEDED FOR WHEEZING 180 mL 2 Nebulizers ([employer] Aerosol Delivery System) [facility] USE DIRECTED. 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 Since symptoms have been ongoing [...] Care Team (Late st Contact Info) Description 08/06/2024 11:00 AM EDT Office Visit [facility] [address] [place] [address] [place] Hagen, DMD [address] [place] [address] 08/06/2024 3:00 PM EDT Clinical Support [facility] DI[facility]NUTRITION [address] [place] [address] [place] [address] 09/22/2024 11:30 AM EDT Telemedicine [facility] [address] [place] [address] Marisa Livingston MD [address] [place] [address] documented as of this encounter Visit Diagnoses Not on filedocumented in this encounter Additional Health Concerns Assessment Noted Time PHQ-9 Depression Total Score: 17 024 9:31 AM EST documented as of this encounter Care Teams Core Blower Operator Relationship Specialty Start Date End Date Marisa Livingston MD [address] [place] [address] PCP - General Family Medicine 03/12/19 documented as of this encounter
--- OUTSIDE RECORDS SUMMARY | 2024-07-16 11:09 | XMS_ITS | Encounter Summary ---
Author Organization [employer] Address [address] [facility] [facility] [address] [place] [address] Care Team Providers Care Him Specialists Name Role Phone Marisa Livingston MD Primary [...] t he electric, gas, oil or water [employer] Plan threatened to shut off services in your [...] Description 08/06/2024 11:00 AM EDT Office Visit [facility] CHC ADULT DENTAL [address] [place], [place] [phone] Berlin Hagen, DMD [address] [place] [address] 08/06/2024 3:00 PM EDT Clinical Support [facility] DIABETES/NUTRITION [address] [place] [address] Mandi Pinedo, MEAGAN [address] [place] [address] 09/22/2024 11:30 AM EDT Telemedicine [facility] MEDICINE [address] [place] [address] Marisa Livingston MD [address] [place] [address] documented as of this encounter Procedures Procedure [...] Troponin I (06/18/2024 4:56 PM EST) Pathologist [facility] TROPONIN I HIGH SENSITIVITY <2.7 <3.5 - 17.0 ng/L [facility] Comment:The Davis high sens itivity Troponin-I results should beused in conjunction with other diagnostic information suchas ECG, clinical observations and information, and patientsymptoms to aid in the diagnosis of OH. 06/18/2024 4:56 PM EST 06/18/2024 4:59 PM EST us Generic External Data Provider LAB BLOOD ORDERAB LES Final Result [facility] [address] [place] [phone] * B Type Natriuretic Peptide (BNP) (06/18/2024 4:56 PM EST) Pathologist [facility] B Type Natriuretic Peptide 11 <100 pg/mL [facility] Comment:For those patients w ho are being treated with Natrecor(nesiritide, recombinant BNP), BNP testing should beperformed at least two hours post treatment in order toensure that only endogenous levels of BNP are detected. 06/18/2024 4:56 PM EST 06/18/2024 4:59 PM EST us Generic External Data Provider LAB BLOOD ORDERAB LES Final Result [facility] [address] [place] [phone] * CTA Chest PE Protocal (06/18/2024 3:34 PM EST) Anatomical Region Laterality Modality Body, Chest Computed Tomogra phy 06/18/2024 3:34 PM EST Narrative 06/18/2024 4:43 PM EST ? [facility] ?[address] ?[place] [address] ? CT Scan Report ? Signed ? Patient: Cleo Rock ?MR#: ?? [id number] ? : 1990 ?Acct:[id number] ? Age/Sex: 33 / F ?ADM Date: 06/18/24 ? Loc: HO.ED ? Attending Dr: ? Ordering Physician: Michela Rouse ?? Date of Service: 06/18/24 ?? Procedure(s): CT angio chest PE protocol ?? Accession Number(s): [id number] ? cc: Marisa Livingston MD; Michela Rouse ? Report Number: ?? [id number]: Total DLP = ??266.00 mGy-cm ?? EXAMINATION: [...] embolus or acute aortic syndrome. ?? 2. Vfnz-wr-ioddlatz cardiac enlargement with predominantly ?? biventricular dilatation. [...] DD/ 1534 ? TD/TT: 06/18/24 1545 ? Personnel Consultant: ? 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 Donotuseinterpreter, Image - 06/18/[address] [address] [address] Scan Report Signed Patient: Cleo Rock JMR#: [id number] : 1990Acct:[id number] Age/Sex: 33 / FADM Date: 06/18/24 Loc: HO.ED Attending Dr: Ordering Physician: Michela Rosue Date of Service: 06/18/24 Procedure(s): CT angio chest PE protocol Accession Number(s): [id number] cc: Marisa Livingston MD; Michela Rouse Report Number: [id number]: Total DLP = 266.00 mGy-cm EXAMINATION: CT [...] pulmonary embolus or acute aortic syndrome. 2. Kyvx-vc-halbqclf cardiac enlargement with predominantly biventricular dilatation. 3. [...] 06/18/24 1627 DD/ 1534 TD/TT: 06/18/24 1545 Personnel Consultant: [facility] External Provider IMG CT PROCEDURES Final Result * XR Chest 2 Views (06/18/2024 11:06 AM EST) Anatomical Region Laterality Modality Chest Radiographic Angelita ging 06/18/2024 11:0 6 AM EST Narrative 06/18/2024 11:19 AM EST ? [facility] ?[address] ?[place] [address] ?XRay Report ? Signed ? Patient: Cleo Rock ?MR#: ?? [id number] ? : 1990 ?Acct:[id number] ? Age/Sex: 33 / F ?ADM Date: 01/31/25 ? Loc: HO.ED ? Attending Dr: ? Ordering Physician: Bay Christina ?? Date of Service: 06/18/24 ?? Procedure(s): XR chest 2V ?? Accession Number(s): [id number] ? cc: Marisa Livingston MD; Bay Christina [...] DD/ 1106 ? TD/TT: 06/18/24 1113 ? Personnel Consultant: ? 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 Donstephyter, Image - 06/18/2024 [place] [address] XRay Report Signed Patient: Cleo Rock JMR#: [id number] : 1990Acct:[id number] Age/Sex: 33 / FADM Date: 06/18/24 Loc: .ED Attending Dr: Ordering Physician: Bay Christina Date of Service: 06/18/24 Procedure(s): XR chest 2V Accession Number(s): [id number] cc: Marisa Livingston MD; Bay Christina EXAMINATION: XR CHEST CLINICAL INFORMATION: Cough COMPARISON: June 17, 2024 TECHNIQUE: 2 views of the chest were obtained. FINDINGS: No consolidation, pleural effusion or pneumothorax. No hyperinflation. Cardiomediastinal silhouette is normal. Osseous structures are intact. XR/XR chest 2V IMPRESSION: No acute airspace disease. Electronically signed by: Fredy Ruiz MD 06/18/2024 11:16 AM EST RP Dictated By: Fredy Marino MD Signed By: <Electronically signed by Fredy Sun MDin OV> 06/18/24 1116 DD/ 1106 TD/TT: 06/18/24 1113 Personnel Consultant: [facility] External Provider IMG XR PROCEDURES Final Result * hCG, Total, Quantitative (06/18/2024 10:52 AM EST) HCG Quantitative <2 mIU/mL [facility] Comment:Weeks post LMP Appro ximate hCG(Last Menstrual Period) Range (mIU/ml)3 - 4 weeks 9 - 1304 - 5 weeks 75 - 2,6005 - 6 weeks 850 - 20,8006 - 7 weeks 4000 - 100,2007 - 12 weeks 11,500 - 289,26308 - 16 weeks 18,300 - 137,47887 - 29 weeks (2nd trimester) 1,400 - 53,26876 - 41 weeks (3rd trimester) 940 - [...] Provider LAB BLOOD ORDERAB LES Final Result [facility] [address] [place] [phone] * D Dimer High Sensitivity (06/18/2024 10:52 AM EST) D Dimer High Sensitivity 232 NG/ML [facility] Comment:D-DIMER HS REFERENCE RANGENote: Our [...] ORDERAB LES Final Result Performing Organization Address [facility] Co de Phone Number [facility] [address] [place] [phone] * Influenza A B2 ID NOW (Davis) (06/18/2024 10:52 AM EST) IDNOW SERIAL# [id number] [facility] Influenza A Negative Negative [facility] Influenza B2 Negative Negative [facility] Influenza A B2 Note See Note [facility] Comment:The Davis ID NOW In fluenza [...] GENERAL ORDERABLES Final Result Performing Organization Address [facility] Co de Phone Number [facility] [address] [place] [phone] * COVID-19 ID NOW (DAVIS) (06/18/2024 10:52 AM EST) IDNOW SERIAL# [id number] [facility] COVID-19 TEST Negative Negative [facility] COVID-19 NOTE See Note [facility] Comment: Results are for the identification of SARS-CoV2 RNA. TheSARS-CoV2 RNA is generally detectable in respiratory samplesduring the acute phase of infection. Positive results areindicative of the presence of SARS-CoV-2 RNA; clinicalcorrelation with patient history and other diagnosticinformation is necessary to determine patient infectionstatus. Positive results do not rule out bacterial infectionor co- infection with other viruses.Testing facilities within the [place] and itsterritories are required to report all [...] use by authorized laboratories.Testing performed on the [employer] NOW utilizing NAAT. 06/18/2024 10:5 2 AM EST 06/18/2024 10:56 AM EST us Generic External Data Provider LAB MOLECULAR DELMI GNOSTICS ORDERABLES Final Result [facility] [address] [place] [phone] * (ABNORMAL) Basic Metabolic Panel (06/18/2024 10:52 AM EST) Sodium 144 135 - 145 mmol/L [facility] Potassium 3.7 3.3 - 5.1 mmol/L [facility] Chloride 112(H) 96 - 108 mmol/L [facility] Carbon Dioxide 24 22 - 29 mmol/L [facility] Anion Gap 12 12 - 20 [facility] Urea Nitrogen (BUN) 9 9 - 16 mg/dL [facility] Creatinine, Serum 0.61 0.5 - 1.4 mg/dL [facility] Creatinine Clr Calc Pharmacy 135.9 [facility] Comment:Provided height and weight: 162.56 cm,85.2 kg.eGFR (calculated from the MDRD study equation) and eCrCl(calculated from the Cockcroft-Gault equation) are based ondifferent parameters and may not yield comparable results.If eCrCl result is absurd, please check patient'sheight/weight. Estimated Glomerular Filt Rate >60 [facility] Comment:Chronic Kidney Disea se: Estimated GFR < 60 mL/min/[id number] Kidney Disease: Estimated GFR < 15 mL/min/1.73m2 Glucose 88 60 - 115 mg/dL [facility] Calcium 9.2 8.4 - 10.2 mg/dL [facility] 06/18/2024 10:5 2 AM EST 06/18/2024 10:56 AM EST Generic External Data Provider LAB BLOOD ORDERAB LES Final Result Performing Organization Address [facility] Co de Phone Number [facility] [address] [place] [phone] * (ABNORMAL) Prothrombin Time-INR (06/18/2024 10:52 AM EST) Prothrombin Time 13.5(H) 10.9 - 12.4 SEC [facility] INTERNATIONAL NORM RATIO 1.2(H) 0.9 - 1.1 [facility] Comment:INTERNATIONAL NORMAL IZED RATIO (INR) REFERENCE [...] 2 AM EST 06/18/2024 10:56 AM EST [employer] External Data Provider LAB BLOOD ORDERAB LES Final Result Performing Organization Address [facility] Co de Phone Number [facility] [address] [place] [phone] * (ABNORMAL) CBC auto differential (06/18/2024 10:52 AM EST) White Blood Count 6.7 4.8 - 10.8 X10*3/uL [facility] Red Blood Count 4.66 4.20 - 5.50 X10*6/uL [facility] Hemoglobin 9.1(L) 12.0 - 16.0 g/dl [facility] Hematocrit 31.5(L) 37.0 - 47.0 % [facility] Mean Corpuscular Volume 67.6(L) 80.0 - 98.0 fL [facility] Mean Corpuscular Hemoglobin 19.5(L) 27.0 - 33.0 pg [facility] Mean Corpuscular HGB Conc 28.9(L) 31.0 - 35.0 g/dl [facility] Red Cell Distribution Width 19.1(H) 11.0 - 16.0 % [facility] Platelet Count 334 160 - 400 X10*3/uL [facility] Mean Platelet Volume 9.0(L) 9.4 - 12.3 fL [facility] Neutrophils Percent Auto 63.8 45 - 73 % [facility] Imm Gran Pct Auto 0.1 0.0 - 0.4 % [facility] Lymphocytes Percent Auto 24.5 20 - 40 % [facility] Monocytes Percent Auto 6.1 2 - 11 % [facility] Eosinophils Percent Auto 5.2(H) 0 - 4 % [facility] Basophils Percent Auto 0.3 0 - 2 % [facility] NRBC Pct Auto 0.0 0.0 - 0.2 /100WBC [facility] Neutrophils Absolute Auto 4.3 2.0 - 8.3 x10*3/uL [facility] Imm Gran Abs Auto 0.01 0.00 - 0.03 X10*3/uL [facility] Lymphocytes Absolute Auto 1.6 1.2 - 4.9 X10*3/uL [facility] Monocytes Absolute Auto 0.4 0.1 - 1.2 X10*3/uL [facility] Eosinophils Absolute Auto 0.4 0.0 - 0.4 X10*3/uL [facility] Basophils Absolute Auto 0.0 0.0 - 0.2 X10*3/uL [facility] NRBC Abs Auto 0.000 0.0 - 0.012 X10*3/uL [facility] 06/18/2024 10:5 2 AM EST 06/18/2024 10:56 AM EST us Generic External Data Provider LAB BLOOD ORDERAB LES Final Result [facility] [address] [place] [phone] documented in this encounter Visit Diagnoses Not on filedocumented in this encounter Additional Health Concerns Assessment Noted Time PHQ-9 Depression Total Score: 17 07/08/ 024 9:31 AM EST documented as of this encounter Care Teams Him Specialists Relationship Specialty Start Date End Date Marisa Livingston MD [address] [place] [phone] PCP - General Family Medicine 03/12/19 documented as of this encounter
--- OUTSIDE RECORDS SUMMARY | 2024-07-16 11:09 | XMS_ITS | Encounter Summary ---
Author Organization [employer] Address [address] [facility] 7 [place] [address] Care Team Providers Care Sheetmetal Worker Name Role Phone Marisa Livingston MD Primary Care Provider + Perez Vergara RN Unavailable [phone] Reason for Visit * Reason Comments Med Refill Encounter Details Date Type Department Care Team (Late st Contact Info) Description 05/27/2024 Refill [facility] MEDICINE [address] [place] [address] Marisa Livingston MD [address] [place] [address] Social History Tobacco Use Types Packs/Day Years [...] Description 08/06/2024 11:00 AM EDT Office Visit [facility] CHC ADULT DENTAL [address] [place] [address] [place] Hagen, DMD [address] [place] [address] 08/06/2024 3:00 PM EDT Clinical Support [facility] DIABETES/NUTRITION [address] [place] [address] Mandi Pinedo, RD [address] [place] [address] 09/22/2024 11:30 AM EDT Telemedicine [facility] MEDICINE [address] [place] [address] Marisa Livingston MD [address] [place] [phone] documented as of this encounter Visit Diagnoses Not on filedocumented in this encounter Additional Health Concerns Assessment Noted Time PHQ-9 Depression Total Score: 17 024 9:31 AM EST documented as of this encounter Care Teams Sheetmetal Worker Relationship Specialty Start Date End Date Marisa Livingston MD [address] [place] [phone] PCP - General Family Medicine 03/12/19 Perez Vergara RN [address] [place] [address] [place] [phone] Real Estate Acquisition AnalystStaff Educator 06/30/24 documented as of this encounter
--- OUTSIDE RECORDS SUMMARY | 2024-07-16 11:09 | XMS_ITS | Encounter Summary ---
Author Organization [employer] Address [address] [place] [address] [address] [address] Care Team Providers Care Ceo & Co Founder Name Role Phone Marisa Livingston MD Primary Care Provider + Reason for Referral * Consultation (Routine) - Authorized Specialty Diagnoses / Procedures Referred By Nadya us Referred To Contact Cardiology Diagnoses Cardiac enlargement Jaki Ferguson MD [address] [place] [address] Phone: tel: fax: [facility] [address] [place] [address] Phone: tel: fax: Referral ID Status Reason Start Date Expiration Date Visits Requested Visits Authorized [id number] Authorized Specialty Services Required 06/21/2024 06/21/2025 6 6 * Consultation (Routine) - Closed Specialty Diagnoses / Procedures Referred By Contdaniela t Referred To Contact Pulmonary Disease Diagnoses Dyspnea on exertion Moderate persistent asthma without complication Jaki Ferguson MD [address] [place] [address] Phone: tel: fax: [facility] Pulmonary [address] [place] [address] Phone: tel: fax: Referral ID Status Reason Start Date Expiration Date V isits Requested Visits Authorized [id number] Closed Specialty Services Required 06/17/2024 06/17/2025 6 6 Reason for Visit * Reason Comments Shortness of Breath Encounter Details Date Type Department Care Team (Late st Contact Info) Description 06/17/2024 3:20 PM EST Office Visit [facility] [address] [place] [address] Jaki Ferguson MD [address], [place] [phone] Dyspnea on exertion (Primary Dx); Moderate persistent [...] Center on 05/26/24 and was directed to [facility] ED, tested positive for Flu A and [...] was starting to clean her house on 1/6/24 and th next day started having fevers. [...] chest pain. She notes had seen a wire charger, but cannot remember who she was seeing. [...] of pulmonary embolus or acute aortic syndrome. Kwdv-md-turnirex cardiac enlargement with predominantly biventricular dilatation. Enlarged [...] of pulmonary embolus or acute aortic syndrome. Ghiy-id-ydaytmov cardiac enlargement with predominantly biventricular dilatation. Enlarged [...] Description 08/06/2024 11:00 AM EDT Office Visit [facility] CHC ADULT DENTAL [address] [place] [address] Berlin Hagen, BERNIE [address] [place] [address] 08/06/2024 3:00 PM EDT Clinical Support [facility] DIABETES/NUTRITION [address] [place] [address] Mandi Pinedo, MEAGAN [address] [place] [address] 09/22/2024 11:30 AM EDT Telemedicine [facility] MEDICINE [address] [place] [address] Marisa Livingston MD [address] [place] [address] Scheduled Referrals Name Type Priority Associated Diagnoses [...] Antibody (IgG), Immunoassay (06/17/2024 3:32 PM EST) [facility] Pertussis Testing 2 IU/mL [facility] Comment: REFERENCE RANGE:: ? Age [...] The indicated PT IgG reference ranges reflect kqd41vl percentile of antibody levels in sera from healthychildren and blood donors; thus, levels above the referencerange suggest recent infection or vaccination within thelast few months.This test was developed and its analytical performancecharacteristics have been determined by [employer].It has not been cleared or approved by FDA. This assay hasbeen validated pursuant to the CLIA regulations and isused for clinical purposes.For additional information, please refer tohttp://education.Vovici/faq/OZH018.(This link is being provided for informational/educational purposes only.)THIS TEST WAS PERFORMED AT:[employer] [id number] [place] ??[id number] HUSSEIN MD,PHD,MARISOL Blood Venous blood specimen / Unknown 06/17/2024 3:32 PM EST 06/17/2024 3:59 PM EST Jaki Ferguson MD LAB BLOOD ORDERABLES Final Result Performing Organization Address [facility]/ZIP Co de Phone Number [facility] [address] [place] [phone] * C-reactive Protein (06/17/2024 3:32 PM EST) C Reactive Protein <0.10 < or = 0.50 mg/dL [facility] Blood Venous blood specimen / Unknown 06/17/2024 3:32 PM EST 06/17/2024 3:59 PM EST Jaki Ferguson MD LAB BLOOD ORDERABLES Final Result [facility] [address] [place] [address] [phone] * (ABNORMAL) CBC auto differential (06/17/2024 3:32 PM EST) White Blood Count 6.9 4.8 - 10.8 X10*3/uL [facility] Red Blood Count 4.52 4.20 - 5.50 X10*6/uL [facility] Hemoglobin 8.8(L) 12.0 - 16.0 g/dl [facility] Hematocrit 30.7(L) 37.0 - 47.0 % [facility] Mean Corpuscular Volume 67.9(L) 80.0 - 98.0 fL [facility] Mean Corpuscular Hemoglobin 19.5(L) 27.0 - 33.0 pg [facility] Mean Corpuscular HGB Conc 28.7(L) 31.0 - 35.0 g/dl [facility] Red Cell Distribution Width 19.4(H) 11.0 - 16.0 % [facility] Platelet Count 346 160 - 400 X10*3/uL [facility] Mean Platelet Volume 9.4 9.4 - 12.3 fL [facility] Neutrophils Percent Auto 60.7 45 - 73 % [facility] Imm Gran Pct Auto 0.3 0.0 - 0.4 % [facility] Lymphocytes Percent Auto 27.4 20 - 40 % [facility] Monocytes Percent Auto 6.4 2 - 11 % [facility] Eosinophils Percent Auto 4.8(H) 0 - 4 % [facility] Basophils Percent Auto 0.4 0 - 2 % [facility] NRBC Pct Auto 0.0 0.0 - 0.2 /100WBC [facility] Neutrophils Absolute Auto 4.2 2.0 - 8.3 x10*3/uL [facility] Imm Gran Abs Auto 0.02 0.00 - 0.03 X10*3/uL [facility] Lymphocytes Absolute Auto 1.9 1.2 - 4.9 X10*3/uL [facility] Monocytes Absolute Auto 0.4 0.1 - 1.2 X10*3/uL [facility] Eosinophils Absolute Auto 0.3 0.0 - 0.4 X10*3/uL [facility] Basophils Absolute Auto 0.0 0.0 - 0.2 X10*3/uL [facility] NRBC Abs Auto 0.000 0.0 - 0.012 X10*3/uL [facility] Blood Venous blood specimen / Unknown 06/17/2024 3:32 PM EST 06/17/2024 3:59 PM EST Jaki Ferguson MD LAB BLOOD ORDERABLES Final Result Performing Organization Address [facility] Co de Phone Number [facility] [address] [place] [phone] * D Dimer High Sensitivity (06/17/2024 3:32 PM EST) [facility] D Dimer High Sensitivity 232 NG/ML [facility] Comment:D-DIMER HS REFERENCE RANGENote: Our [...] BLOOD ORDERABLES Final Result Performing Organization Address [facility] Co de Phone Number [facility] [address] [place] [phone] * XR Chest 2 Views (06/17/2024 3:00 PM EST) Anatomical Region Laterality Modality Chest Radiographic Angelita ging 06/17/2024 3:00 PM EST Narrative 06/17/2024 3:55 PM EST ?[facility] ?[address] ?[place] [address] ?XRay Report ? Signed ? Patient: Smith Dino,Cleo J ?MR#: ?? [id number] ? : 1990 ?Acct:[id number] ? Age/Sex: 33 / F ?ADM Date: 06/17/24 ? Loc: HO.HHCX ? Attending Dr: Jaki Ferguson MD ? Ordering Physician: Jaki Ferguson MD ?? Date of Service: 06/17/24 ?? Procedure(s): XR chest 2V ?? Accession Number(s): [id number] ? cc: Jaki Ferguson MD ? EXAMINATION: [...] DD/ 1500 ? TD/TT: 06/17/24 1520 ? Computer Patternmaker: ? 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 Armando, Image - 06/17/[address] [address] XRay Report Signed Patient: Cleo Rock JMR#: [id number] : 1990Acct:[id number] Age/Sex: 33 / FADM Date: 06/17/24 Loc: HO.HHCX Attending Dr: Jaki Ferguson MD Ordering Physician: Jaki Ferguson MD Date of Service: 06/17/24 Procedure(s): XR chest 2V Accession Number(s): [id number] cc: Jaki Ferguson MD EXAMINATION: XR CHEST [...] 06/17/24 1552 DD/ 1500 TD/TT: 06/17/24 1520 Computer Patternmaker: Jaki Ferguson MD IMG XR PROCEDURES Final Re sult * POCT rapid strep A manually resulted (06/17/2024 2:36 PM EST) [facility] Rapid Strep A Screen Negative Negative, None Detected Swab 06/17/2024 2:36 PM EST Jaki Ferguson MD POINT OF CARE TEST ENTER/E DIT ORDERABLES Final Result * Influenza B (ID NOW Rapid Molecular) (06/17/2024 2:36 PM EST) [facility] Influenza B Negative Negative, Indeterminate [facility] Swab 06/17/2024 2:36 PM EST Jaki Ferguson MD POINT OF CARE TEST ENTER/E DIT ORDERABLES Final Result [facility] [address] [place] [phone] * Influenza A (ID NOW Rapid Molecular) (06/17/2024 2:36 PM EST) Influenza A Negative Negative, Indeterminate [facility] Swab 06/17/2024 2:36 PM EST Jaki Ferguson MD POINT OF CARE TEST ENTER/E DIT ORDERABLES Final Result [facility] [address] [place] [address] [phone] * POCT Rapid Covid-19 BinaxNOW (06/17/2024 [...] documented as of this encounter Care Teams Ceo & Co Founder Relationship Specialty Start Date End Date Marisa Livingston MD [address] [place] [phone] PCP - General Family Medicine 03/12/19 documented as of this encounter
--- OUTSIDE RECORDS SUMMARY | 2024-07-16 11:09 | XMS_ITS | Encounter Summary ---
Author Organization [employer] Address [address] [facility] [address] [place] [address] Care Team Providers Care Marine Painter Name Role Phone Marisa Livingston MD Primary Care Provider + Encounter Details Date Type Department Care Team ([facility] st Contact Info) Description 06/17/2024 Telephone [facility] [address] [place], [place] [phone] Jaki Cruz MD [address] [place] [address] Social History Tobacco Use Types Packs/Day Years [...] Description 08/06/2024 11:00 AM EDT Office Visit [facility] CHC ADULT DENTAL [address] [place] [address] [place] Hagen, DMD [address] [place] [address] 08/06/2024 3:00 PM EDT Clinical Support [facility] DIABETES/NUTRITION [address] [place] [address] Mandi Pinedo, RD [address] [place] [address] 09/22/2024 11:30 AM EDT Telemedicine [facility] MEDICINE [address] [place] [address] Marisa Livingston MD [address] [place] [address] documented as of this encounter Visit Diagnoses Not on filedocumented in this encounter Additional Health Concerns Assessment Noted Time PHQ-9 Depression Total Score: 17 024 9:31 AM EST documented as of this encounter Care Teams Marine Painter Relationship Specialty Start Date End Date Marisa Livingston MD [address] [place] [phone] PCP - General Family Medicine 03/12/19 documented as of this encounter
--- OUTSIDE RECORDS SUMMARY | 2024-07-16 11:09 | XMS_ITS | Encounter Summary ---
Author Organization [employer] Address [address] [facility] 7 [place] [address] Care Team Providers Care Receiving Tank Operator Name Role Phone Marisa Livingston MD Primary Care Provider + Perez Vergara RN Unavailable [phone] Reason for Visit * Reason Onset Date Comments Appointment Request 07/14/2024 Encounter Details Date Type Department Care Team (Late st Contact Info) Description 07/14/2024 Telephone [facility] MEDICINE [address] [place] [address] Marisa Livingston MD [address] [place] [address] Appointment Request Social History Tobacco Use Types Packs/Day Years Used Date Smoking Tobacco: Former Cigarettes Passive Smoke Exposure: Never Smokeless Tobacco: Never Alcohol Use Standard Drinks/Week Comments Never 0 (1 standard drink = 0.6 oz pur e alcohol) Depression Answer Date Recorded Patient Health Questionnaire-9 Score 17 07/14/2024 Patient Health Questionnaire-9 Score 17 07/14/2024 Last PHQ-9: Questionnaire Data Not on file 0 07/14/2024 Housing Stability Answer Date Recorded What is [...] Date Recorded Patient Health Questionnaire-2 Score 6 07/14/2024 Internet Access Answer Date Recorded Internet Access [...] Telephone Encounter - Danika Chisholm [place] - 07/14/2024 10:33 AM EST Tc to pt to provide Cardiology phone number so pt can schedule appt with office. Information was provided. documented in this encounter Plan of Treatment Upcoming Encounters Date Type Department Care Team (Late st Contact Info) Description 08/06/2024 11:00 AM EDT Office Visit [facility] CHC ADULT DENTAL [address] [place] [address] [place] Hagen, BERNIE [address] [place] [address] 08/06/2024 3:00 PM EDT Clinical Support [facility] DIABETES/NUTRITION [address] [place] [address] Mandi Pinedo, MEAGAN [address] [place] [address] 09/22/2024 11:30 AM EDT Telemedicine [facility] MEDICINE [address] [place] [address] Marisa Livingston MD [address] [place] [address] documented as of this encounter Visit Diagnoses Not on filedocumented in this encounter Additional Health Concerns Assessment Noted Time PHQ-9 Depression Total Score: 17 025 9:47 AM EST documented as of this encounter Care Teams Receiving Tank Operator Relationship Specialty Start Date End Date Marisa Livingston MD [address] [place] [address] PCP - General Family Medicine 03/12/19 Perez Vergara RN [address] [place] [phone] Tag Press OperatorHeat Curer 06/30/24 documented as of this encounter
--- OUTSIDE RECORDS SUMMARY | 2024-07-16 11:09 | XMS_ITS | Clinical Summary ---
Author Organization [employer] Address [address] [facility] [address] [place] [address] Care Team Providers Care Cable Worker Helper Name Role Phone Marisa Livingston MD Primary Care Provider + Perez Vergara RN Unavailable [phone] Allergies Active Allergy Reactions Criticality Noted Date Comments Latex Itching,Rash Low 02/18/2019 Medications acetaminophen (Tylenol) 500 MG tablet take 1 tablet by oral route every6 -8 hours as needed not to exceed 4 tablets per 24hrs 0 Active traZODone (Desyrel) 50 MG tablet TAKE 1 TABLET BY MOUTH EVERY DAY NEEDED FOR SLEEP 3 Active albuterol 108 (90 Base) MCG/ACT inhalerIndicatio ns:Moderate persistent asthma without complication Inhale 2 puffs every 4 (four) hours. 18 g 2 3 Active risperiDONE (RisperDAL) 2 MG tablet Take 1 tablet by mouth. Active OXcarbazepine (Trileptal) 300 MG tablet Take 1 tablet by mouth every 12 (twelve) hours. Active Nebulizers (Vios Aerosol Delivery System) [facility] USE DIRECTED. 3 Active Fasenra Pen 30 MG/ML injection 3 Active SUMAtriptan (Imitrex) 100 MG tabletIndication s:Migraine without aura, not refractory take 1/2-1 tablet by oral route once after the onset of a migraine attack;may repeat after 2 hours if headache returns, MDD = 4 tabs 30 tablet 3 4 Active fluticasone-salm eterol (Advair) 230-21 MCG/ACT inhalerIndicatio ns:Moderate persistent asthma without complication Inhale 2 puffs in the morning and at bedtime. Rinse mouth with water after use to reduce aftertaste and incidence of candidiasis. Do not swallow. 12 g 11 4 Active ipratropium-albu terol (Duo-Neb) 0.5-2.5 mg/3 mL nebulizer solutionIndicati ons:Moderate persistent asthma without complication USE 3 ML VIA NEBULIZER EVERY 6 HOURS NEEDED FOR WHEEZING 180 mL 2 4 Active ergocalciferol (Vitamin D2) 1.25 MG (04903 UT) capsule TAKE 1 CAPSULE(1.25 MG) BY MOUTH 1 TIME EVERY WEEK 12 capsule 1 5 Active benzonatate (Tessalon) 100 MG capsule Take 1 capsule by mouth every 8 (eight) hours if needed for cough. 5 Active furosemide (Lasix) 20 MG tablet Take 20 mg by mouth Once per day. Active ferrous sulfate (Fe Tabs) 325 (65 Fe) MG EC tabletIndication s:Menorrhagia with regular cycle Take 1 tablet (325 mg) by mouth with breakfast. Do not crush, chew, or split. 90 tablet 4 07/07/19 25 Active Problems Problem Noted Date Diagnosed Date Cardiac enlargement 06/21/2024 Overview (06/21/2024): Addendum 06/21/24 9:33 AM - CT/CT angio chest PE protocol done in ER 06/18/24 to r/o PE revealsed No evidence of pulmonary embolus or acute aortic syndrome. Lpfd-wj-bkncldym cardiac enlargement with predominantly biventricular dilatation. Enlarged main pulmonary artery suggesting pulmonary arterial hypertension. -will refer to cardiology Assessment & Plan (07/14/2024 10:53 AM EST): Patient probably has Cor Pulmonale or Pulmonary HTN, FU echo results Cardiology referral pending Continue Lasix for now and check BMP prior to next visit. Advised regarding weight reduction and optimal control of asthma. Assessment & Plan (06/21/2024 9:34 AM EST): Addendum 02/03/25 9:33 AM - CT/CT angio chest PE protocol done in ER 06/18/24 to r/o PE revealsed No evidence of pulmonary embolus or acute aortic syndrome. Mwar-ok-ocjorqhh cardiac enlargement with predominantly biventricular dilatation. Enlarged main pulmonary artery suggesting pulmonary arterial hypertension. -will refer to cardiology Moderate persistent asthma without complication 06/17/2024 Assessment & Plan (07/14/2024 10:59 AM EST): Uncontrolled, worsening s/p Influenza. Chronic exposure to environmental allergens and extreme temperatures. Continue close FU with Occupational Analyst. Continue Advair plus Duo Neb, awaiting pa for Fasenra. Will consider allergy testing. Menorrhagia with regular cycle 04/16/2023 Assessment & Plan (07/14/2024 10:51 AM EST): Persistent, most probable cause of anemia. I will refer to Right Of Way Worker at [facility] for treatment that may include IUD for one year as patient wants to get . She agreed to hormonal treatment if needed and delay until medical conditions are more stable. Assessment & Plan (07/09/2023 7:17 PM EST): [...] exercise, life style modifications, diet, referral to realty specialist. Discussed re lower calorie intake, increase dietary fiber Assessment & Plan (11/22/2022 1:34 PM EDT): Discussed re weight reduction options including exercise, life style modifications, diet, referral to realty specialist. Discussed re lower calorie intake, increase [...] -Uncontrolled. -Restart Advair Diskus -Follow up with finance clerk for immunotherapy. -Counseled on protocol for FMLA [...] gave today NBZ machine written prescription to [facility] nurse staff -Alarm signs and sx [...] anti-muscarinic inhaler as Trelegy -Referred today to candle molder hand for uncontrolled asthma Assessment & Plan (07/03/2022 12:50 PM EST): Uncontrolled. Start Flovent BID. She agreed to influenza and PCV 20 today, declined Covid IZ. DUB (dysfunctional uterine bleeding) 07/03/2022 Assessment & Plan (07/03/2022 12:51 PM EST): Counseled to keep menstrual diary. Order CBC and iron studies. Obesity due to excess calories without serious c omorbidity 07/03/2022 Assessment & Plan (07/14/2024 11:14 AM EST): Discussed re weight reduction options including exercise, life style modifications, diet. Recommended to decrease soda and sugary beverage consumption, increase protein intake with meals (at least 1 portion of protein with each meal) to assist with satiety, increase dietary fiber Recommended at least 150 min/week of moderate intensity exercise. She agreed to referral to dietitian May need pharmacological intervention Assessment & Plan (07/03/2022 12:51 PM EST): Discussed re weight reduction options including exercise, life style modifications, diet, referral to realty specialist. Discussed re lower calorie intake, increase [...] at home PAP smear: Overdue, refer to obstetrician gynecologist will need further eval for DUB Adult [...] Encounters Date Type Department Care Team Description 07/14/2024 10:00 AM EST Telemedicine [address] [phone] Marisa Livingston MD Moderate persistent asthma without complication (Primary Dx); Cardiac enlargement; Menorrhagia with regular cycle; Obesity due to excess calories without serious comorbidity, unspecified class 07/14/2024 Patient Outreach [address] [address] Marisa Livingston MD Care Coordination (C3 -[facility] Stacey Lloyd telephone call outreach) 07/14/[address] [address] Marisa Livingston MD Appointment Request 07/14/[address] [phone] Marisa Livingston MD Appointment Confirmation 07/14/[address] [phone] Marisa Livingston MD Care Management ([facility]- f/u call) 07/14/2024 Travel 07/09/2024 Telephone [facility] [address] [place] [phone] Marisa Livingston MD Chart prep 07/09/2024 Telephone [facility] [address] [place] [phone] Marisa Livingston MD Appointment Request 07/09/2024 Telephone [facility] [address] [place] [phone] Marisa Livingston MD Appointment Request 07/07/2024 Telephone [facility] [address] [place] [address] Marisa Livingston MD Chart prep 07/02/2024 Telephone [facility] [address] [place] [phone] Marisa Livingston MD no show 07/01/2024 Telephone [facility] [address] [place] [phone] Marisa Livingston MD Chart prep 06/30/2024 Telephone [facility] [address] [place] [phone] Marisa Livingston MD Care Management ([facility]- initial assessment/enrollmen t) 06/29/2024 Patient Outreach [facility] [address] [place] [phone] Marisa Livingston MD Care Coordination ([facility] Lloyd telephone call outreach) 06/29/2024 Patient Outreach [facility] [address] [place] [phone] Marisa Livingston MD 06/21/2024 Patient Outreach [facility] [address] [place] [phone] Marisa Livingston MD Care Coordination ([facility] Lloyd telephone call outreach) 06/21/2024 Telephone [facility] [address] [place] [phone] Jaki Cruz MD 06/21/[address] [address] Perez Vergara, CHAPITO Care Management (C3- chart review) 06/18/2024 Orders Only GENERIC EXTERNAL DATA DEPARTMENT Provider, Generic External Data 06/17/2024 3:20 PM EST Office Visit [facility] [address] [address] Jaki Cruz MD Dyspnea on exertion (Primary Dx); Moderate persistent asthma without complication; Cardiac enlargement 06/17/2024 Telephone [facility] [address] [address] Jaki Cruz MD 06/17/2024 Telephone [facility] [address] [address] Bettie Garay RN ED EXPECT 06/17/2024 Orders Only [facility] [address] [address] Jaki Cruz MD Chronic anemia (Primary Dx) 06/17/2024 Telephone [facility] [address] [address] Amirah Pugh, CHAP[place]O Nurse Triage (SOB) 06/10/[address] [address] Marisa Livingston MD Nurse Triage 06/07/[address] [address] Marisa Livingston MD 06/04/[address] [address] Marisa Livingston MD Nurse Triage 06/03/2024 Orders Only [facility] ADULT DENTAL [address] [place] [address] [place] Hagen, BERNIE 05/27/[address] [address] Marisa Livingston MD 05/26/2024 4:00 PM EST Office Visit [facility] [address] [address] Joann Sandoval MD Acute severe exacerbation of asthma (Primary Dx) 05/26/2024 Orders Only [facility] External Provider, [facility] 05/26/2024 Telephone [facility] [address] [place] [address] Marisa Livingston MD Nurse Triage 05/20/2024 Telephone [facility] [address] [place] [address] Marisa Livingston MD July recall from Last [...] Description 08/06/2024 11:00 AM EDT Office Visit [facility] ADULT DENTAL [address] [place] [address] [place] Hagen, DMD [address] [place] [address] 08/06/2024 3:00 PM EDT Clinical Support [facility] DIABETES/NUTRITION [address] [place] [address] Mandi Pinedo, MEAGAN [address] [place] [address] 09/22/2024 11:30 AM EDT Telemedicine [facility] [address] [place] [address] Marisa Livingston MD [address] [place] [address] Health Maintenance Due Date Last Done Comments Alcohol/Substance Use Screening 2000 Family Planning (PISQ) 12/06/2003 Hepatitis C Screening 2006 Hepatitis B Vaccines (1 of 3 - 19+ 3-dose series) 12/06/2007 Dental Oral Exam 08/29/2022 02/27/2022 COVID-19 Vaccine ( - 2023- season) 2024 Influenza Vaccine (#1) 2024 , 07/03/2022, 02/18/2019, Additional history exists Dental Prophylaxis 09/24/2024 03/26/2024 Depression Monitoring (PHQ-9) 01/11/2025 07/14/2024, 07/14/2024 Dental X-Ray: Full Mouth 02/28/2025 02/27/2022 Tobacco Screening 03/26/2025 03/26/2024 Dental X-Ray: Bitewings 03/27/2025 03/26/2024, 02/27 SDOH Screening 06/29/2025 06/29/2024 Depression Screening 07/14/2025 07/14/2024, 07/14/19 25 Lipid Panel 12/10/2027 12/09/2022 DTaP/Tdap/Td Vaccines (2 [...] 06/18/2024 10:52 AM EST COVID-19 ID NOW (Protein Forest) Routine 06/18/2024 10:52 AM EST BASIC METABOLIC [...] Sensitivity Troponin I (06/18/2024 4:56 PM EST) TROPONIN I HIGH SENSITIVITY <2.7 <3.5 - 17.0 ng/L [facility] Comment:The Davis high sens itivity Troponin-I results should beused in conjunction with other diagnostic information suchas ECG, clinical observations and information, and patientsymptoms to aid in the diagnosis of NC. 06/18/2024 4:56 PM EST 06/18/2024 4:59 PM EST Generic External Data Provider LAB BLOOD ORDERAB LES Final Result Performing Organization Address [facility] de Phone Number [facility] [address] [place] [phone] * B Type Natriuretic Peptide (BNP) (06/18/2024 4:56 PM EST) B Type Natriuretic Peptide 11 <100 pg/mL [facility] Comment:For those patients w ho are being treated with Natrecor(nesiritide, recombinant BNP), BNP testing should beperformed at least two hours post treatment in order toensure that only endogenous levels of BNP are detected. 06/18/2024 4:56 PM EST 06/18/2024 4:59 PM EST Generic External Data Provider LAB BLOOD ORDERAB LES Final Result Performing Organization Address [facility] Phone Number [facility] [address] [place] [phone] * CTA Chest PE Protocal (06/18/2024 3:34 PM EST) Anatomical Region Laterality Modality Body, Chest Computed Tomogra phy 06/18/2024 3:34 PM EST Narrative 06/18/2024 4:43 PM EST ? [facility] ?[address] ?[place] [address] ? CT Scan Report ? Signed ? Patient: Cleo Rock J ?MR#: ?? [id number] ? : 1990 ?Acct:[id number] ? Age/Sex: 33 / F ?ADM Date: /31/25 ? Loc: HO.ED ? Attending Dr: ? Ordering Physician: Michela oRuse ?? Date of Service: 06/18/24 ?? Procedure(s): CT angio chest PE protocol ?? Accession Number(s): [id number] ? cc: Marisa Livingston MD; Michela Rouse ? Report Number: ?? [id number]: Total DLP = ??266.00 mGy-cm ?? EXAMINATION: [...] embolus or acute aortic syndrome. ?? 2. Umtn-sx-ctalaixc cardiac enlargement with predominantly ?? biventricular dilatation. ?? 3. Enlarged main pulmonary artery suggesting pulmonary arterial ?? hypertension. ?? 4. Mild mosaic attenuation of the lung parenchyma, most likely ?? secondary to partial expiratory phase. No focal pneumonia or abnormal ?? opacities otherwise. No effusions. ?? 5. Cholelithiasis. ? Electronically signed by: ??Diego Mnotana MD ??06/18/2024 04:27 PM EST RP ? Dictated By: ?Diego Montana MD ? Signed By: ?<Electronically signed by Diego Montana MD in OV> ?06/18/24 1627 ? DD/ 1534 ? TD/TT: 06/18/24 1545 ? Pc Maintenance Technician: ? 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 Konstantincurtis, Image - 06/18/[address] [place] [address] [address] Scan Report Signed Patient: Cleo Rock JMR#: [id number] : 1990Acct:[id number] Age/Sex: 33 / FADM Date: 06/18/24 Loc: HO.ED Attending Dr: Ordering Physician: Michela Rouse Date of Service: 06/18/24 Procedure(s): CT angio chest PE protocol Accession Number(s): [id number] cc: Marisa Livingston MD; Michela Rouse Report Number: [id number]: Total DLP = 266.00 mGy-cm EXAMINATION: CT [...] pulmonary embolus or acute aortic syndrome. 2. Nrwk-ni-ytdjeynw cardiac enlargement with predominantly biventricular dilatation. 3. Enlarged main pulmonary artery suggesting pulmonary arterial hypertension. 4. Mild mosaic attenuation of the lung parenchyma, most likely secondary to partial expiratory phase. No focal pneumonia or abnormal opacities otherwise. No effusions. 5. Cholelithiasis. Electronically signed by: Diego Montana MD 06/18/2024 04:27 PM [facility] Dictated By: Diego Montana MD Signed By: <Electronically signed by Diego Montana MD in OV> 06/18/24 1627 DD/ 1534 TD/TT: 06/18/24 1545 Pc Maintenance Technician: [facility] External Provider IMG CT PROCEDURES Final Result * XR Chest 2 Views (06/18/2024 11:06 AM EST) Only the most recent of3 resultswithin the time period is included. Anatomical Region Laterality Modality Chest Radiographic Angelita ging 06/18/2024 11:0 6 AM EST Narrative 06/18/2024 11:19 AM EST ? [facility] ?[address] ?[place] [address] ?XRay Report ? Signed ? Patient: Cleo Rock ?MR#: ?? [id number] ? : 1990 ?Acct:[id number] ? Age/Sex: 33 / F ?ADM Date: 06/18/24 ? Loc: HO.ED ? Attending Dr: ? Ordering Physician: Bay Christina ?? Date of Service: 06/18/24 ?? Procedure(s): XR chest 2V ?? Accession Number(s): [id number] ? cc: Marisa Livingston MD; Bay Christina [...] DD/ 1106 ? TD/TT: 06/18/24 1113 ? Pc Maintenance Technician: ? 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 Armando, Image - 06/18/[address] [address] XRay Report Signed Patient: Cleo Rock JMR#: [id number] : 1990Acct:[id number] Age/Sex: 33 / FADM Date: 06/18/24 Loc: .ED Attending Dr: Ordering Physician: Bay Christina Date of Service: 06/18/24 Procedure(s): XR chest 2V Accession Number(s): [id number] cc: Marisa Livingston MD; Bay Christina EXAMINATION: [...] 06/18/24 1116 DD/ 1106 TD/TT: 06/18/24 1113 Pc Maintenance Technician: [facility] External Provider IMG XR PROCEDURES Final Result * Influenza A B2 ID NOW (Davis) (06/18/2024 10:52 AM EST) IDNOW SERIAL# [id number] [facility] Influenza A Negative Negative [facility] Influenza B2 Negative Negative [facility] Influenza A B2 Note See Note [facility] Comment:The Davis ID NOW In fluenza [...] GENERAL ORDERABLES Final Result Performing Organization Address [facility] de Phone Number [facility] [address] [place] [phone] * D Dimer High Sensitivity (06/18/2024 10:52 AM EST) Only the most recent of2 resultswithin the time period is included. D Dimer High Sensitivity 232 NG/ML [facility] Comment:D-DIMER HS REFERENCE RANGENote: Our assay [...] ORDERAB LES Final Result Performing Organization Address [facility] de Phone Number [facility] [address] [place] [phone] * COVID-19 ID NOW (DAVIS) (06/18/2024 10:52 AM EST) IDNOW SERIAL# [id number] [facility] COVID-19 TEST Negative Negative [facility] COVID-19 NOTE See Note [facility] Comment: Results are for the identification of SARS-CoV2 RNA. TheSARS-CoV2 RNA is generally detectable in respiratory samplesduring the acute phase of infection. Positive results areindicative of the presence of SARS-CoV-2 RNA; clinicalcorrelation with patient history and other diagnosticinformation is necessary to determine patient infectionstatus. Positive results do not rule out bacterial infectionor co- infection with other viruses.Testing facilities within the [place] and itsterritories are required to report [...] use by authorized laboratories.Testing performed on the [employer] utilizing NAAT. 06/18/2024 10:5 2 AM EST 06/18/2024 10:56 AM EST us Generic External Data Provider LAB MOLECULAR DELMI GNOSTICS ORDERABLES Final Result [facility] [address] [place] [phone] * (ABNORMAL) CBC auto differential (06/18/2024 10:52 AM EST) Only the most recent of2 resultswithin the time period is included. White Blood Count 6.7 4.8 - 10.8 X10*3/uL [facility] Red Blood Count 4.66 4.20 - 5.50 X10*6/uL [facility] Hemoglobin 9.1(L) 12.0 - 16.0 g/dl [facility] Hematocrit 31.5(L) 37.0 - 47.0 % [facility] Mean Corpuscular Volume 67.6(L) 80.0 - 98.0 fL [facility] Mean Corpuscular Hemoglobin 19.5(L) 27.0 - 33.0 pg [facility] Mean Corpuscular HGB Conc 28.9(L) 31.0 - 35.0 g/dl [facility] Red Cell Distribution Width 19.1(H) 11.0 - 16.0 % [facility] Platelet Count 334 160 - 400 X10*3/uL [facility] Mean Platelet Volume 9.0(L) 9.4 - 12.3 fL [facility] Neutrophils Percent Auto 63.8 45 - 73 % [facility] Imm Gran Pct Auto 0.1 0.0 - 0.4 % [facility] Lymphocytes Percent Auto 24.5 20 - 40 % [facility] Monocytes Percent Auto 6.1 2 - 11 % [facility] Eosinophils Percent Auto 5.2(H) 0 - 4 % [facility] Basophils Percent Auto 0.3 0 - 2 % [facility] NRBC Pct Auto 0.0 0.0 - 0.2 /100WBC [facility] Neutrophils Absolute Auto 4.3 2.0 - 8.3 x10*3/uL [facility] Imm Gran Abs Auto 0.01 0.00 - 0.03 X10*3/uL [facility] Lymphocytes Absolute Auto 1.6 1.2 - 4.9 X10*3/uL [facility] Monocytes Absolute Auto 0.4 0.1 - 1.2 X10*3/uL [facility] Eosinophils Absolute Auto 0.4 0.0 - 0.4 X10*3/uL [facility] Basophils Absolute Auto 0.0 0.0 - 0.2 X10*3/uL [facility] NRBC Abs Auto 0.000 0.0 - 0.012 X10*3/uL [facility] 06/18/2024 10:5 2 AM EST 06/18/2024 10:56 AM EST us Generic External Data Provider LAB BLOOD ORDERAB LES Final Result [facility] [address] [place] [phone] * (ABNORMAL) Prothrombin Time-INR (06/18/2024 10:52 AM EST) Prothrombin Time 13.5(H) 10.9 - 12.4 SEC [facility] INTERNATIONAL NORM RATIO 1.2(H) 0.9 - 1.1 [facility] Comment:INTERNATIONAL NORMAL IZED RATIO (INR) REFERENCE [...] ORDERAB LES Final Result Performing Organization Address City/State/[facility] de Phone Number [facility] [address] [place] [phone] * hCG, Total, Quantitative (06/18/2024 10:52 AM EST) HCG Quantitative <2 mIU/mL [facility] Comment:Weeks post LMP Appro ximate hCG(Last Menstrual Period) Range (mIU/ml)3 - 4 weeks 9 - 1304 - 5 weeks 75 - 2,6005 - 6 weeks 850 - 20,8006 - 7 weeks 4000 - 100,2007 - 12 weeks 11,500 - 289,29182 - 16 weeks 18,300 - 137,21450 - 29 weeks (2nd trimester) 1,400 - 53,67232 - 41 weeks (3rd trimester) 940 - [...] ORDERAB LES Final Result Performing Organization Address City/[facility]/ZIP Co de Phone Number [facility] [address] [place] [phone] * (ABNORMAL) Basic Metabolic Panel (06/18/2024 10:52 AM EST) Sodium 144 135 - 145 mmol/L [facility] Potassium 3.7 3.3 - 5.1 mmol/L [facility] Chloride 112(H) 96 - 108 mmol/L [facility] Carbon Dioxide 24 22 - 29 mmol/L [facility] Anion Gap 12 12 - 20 [facility] Urea Nitrogen (BUN) 9 9 - 16 mg/dL [facility] Creatinine, Serum 0.61 0.5 - 1.4 mg/dL [facility] Creatinine Clr Calc Pharmacy 135.9 [facility] Comment:Provided height and weight: 162.56 cm,85.2 kg.eGFR (calculated from the MDRD study equation) and eCrCl(calculated from the Cockcroft-Gault equation) are based ondifferent parameters and may not yield comparable results.If eCrCl result is absurd, please check patient'sheight/weight. Estimated Glomerular Filt Rate >60 [facility] Comment:Chronic Kidney Disea se: Estimated GFR < 60 mL/min/1.00g1Hoeatb Kidney Disease: Estimated GFR < 15 mL/min/1.73m2 Glucose 88 60 - 115 mg/dL [facility] Calcium 9.2 8.4 - 10.2 mg/dL [facility] 06/18/2024 10:5 2 AM EST 06/18/2024 10:56 AM EST us Generic External Data Provider LAB BLOOD ORDERAB LES Final Result Performing Organization Address City/[facility]/ZIP Co de Phone Number [facility] [address] [place] [phone] * Pertussis Bordetella toxin (PT) Antibody (IgG), Immunoassay (06/17/2024 3:32 PM EST) [facility] Pertussis Testing 2 IU/mL [facility] Comment: REFERENCE RANGE:: ? Age [...] The indicated PT IgG reference ranges reflect [id number] percentile of antibody levels in sera from healthychildren and blood donors; thus, levels above the referencerange suggest recent infection or vaccination within thelast few months.This test was developed and its analytical performancecharacteristics have been determined by [facility].It has not been cleared or approved by FDA. This assay hasbeen validated pursuant to the CLIA regulations and isused for clinical purposes.For additional information, please refer tohttp://education.[employer]/faq/HWL854.(This link is being provided for informational/educational purposes only.)THIS TEST WAS PERFORMED AT:[facility] [id number] CELINA COSTA ??[phone] HUSSEIN MD,PHD,MARISOL Blood Venous blood specimen / Unknown 06/17/2024 3:32 PM EST 06/17/2024 3:59 PM EST Jaki Cruz MD LAB BLOOD ORDERABLES Final Result [facility] [address] [place] [phone] * C-reactive Protein (06/17/2024 3:32 PM EST) [facility] C Reactive Protein <0.10 < or = 0.50 mg/dL [facility] Blood Venous blood specimen / Unknown 06/17/2024 3:32 PM EST 06/17/2024 3:59 PM EST Result [facility] Jaki Cruz MD LAB BLOOD ORDERABLES Final Result Performing Organization Address [facility] Co de Phone Number [facility] [address] [place] [phone] * Influenza B (ID NOW Rapid Molecular) (06/17/2024 2:36 PM EST) [facility] Influenza B Negative Negative, Indeterminate [facility] Swab 06/17/2024 2:36 PM EST Result [facility] Jaki Cruz MD POINT OF CARE TEST ENTER/E DIT ORDERABLES Final Result Performing Organization Address [facility] Co de Phone Number [facility] [address] [place] [phone] * Influenza A (ID NOW Rapid Molecular) (06/17/2024 2:36 PM EST) [facility] Influenza A Negative Negative, Indeterminate [facility] Swab 06/17/2024 2:36 PM EST Result [facility] Jaki Cruz MD POINT OF CARE TEST ENTER/E DIT ORDERABLES Final Result Performing Organization Address [facility] de Phone Number [facility] [address] [place] [address] [phone] * POCT rapid strep A manually resulted (06/17/2024 2:36 PM EST) [facility] Rapid Strep A Screen Negative Negative, None Detected Swab 06/17/2024 2:36 PM EST us Jaki Cruz MD POINT OF CARE TEST ENTER/E DIT ORDERABLES Final Result * POCT Rapid Covid-19 BinaxNOW (06/17/2024 2:09 PM EST) Pathologist [facility] Rapid COVID Ag Negative Sage 06/17/2024 2:09 PM EST Jaki Cruz MD POINT OF CARE TEST ENTER/E DIT ORDERABLES Final Result * Strep A Nucleic Acid (05/26/2024 5:39 PM EST) [facility] IDNOW SERIAL# [id number] [facility] Strep A Nucleic Acid Negative Negative [facility] Comment:All test results mus t be correlated with clinical findings.This test has not been evaluated for monitoring treatment ofinfection.Additional follow-up testing using the culture method isrequired if the result is negative and clinical symptomspersist, or in the event of an acute rheumatic feveroutbreak. 05/26/2024 5:39 PM EST 05/26/2024 5:46 PM EST Generic External Data Provider LAB MICROBIOLOGY - GENERAL ORDERABLES Final Result [facility] [address] [place] [address] [phone] * (ABNORMAL) SARS-CoV-2 RNA, Influenza A/B, and RSV RNA, Ql NAAT (05/26/2024 5:39 PM EST) [facility] Influenza A PCR POSITIVE(A) Negative [facility] Influenza B PCR NEGATIVE Negative [facility] Resp Syncy Virus RNA Qual PCR NEGATIVE Negative [facility] SARS COV2 PCR NEGATIVE Negative [facility] Comment:All test results mus t [...] use by authorized laboratories.Testing performed on the [employer] GeneXpert utilizingreal-time RT-PCR.All SARS CoV2 and positive influenza A/B results arereported to [facility]. 05/26/2024 5:39 PM EST 05/26/2024 5:46 PM EST us Generic External Data Provider LAB MICROBIOLOGY - GENERAL ORDERABLES Final Result Performing Organization Address City/State/[facility] Co de Phone Number [facility] [address] [place] [phone] * Pap Smear (08/05/2023 3:15 PM EDT) 08/05/2023 3:15 PM EDT 08/07/2023 1:00 PM EDT Narrative [facility] - 08/18/2023 1:17 PM EDT ----- ------- Name: Cleo Rock ? Age/Sex: 32/F ? : 1990 Unit#: [id number] ?? Attend Dr: Amaris Salgado CNM ?Re08/05/23 ?Status: DEP REF ? Location: HO.LNP ?Disch: ? ----- ------- SPEC : [id number] ? RECD: 08/07/23-1299 ? STATUS: ??SOUT ? REQ NUM: [id number] ? MEAGAN: 08/05/23-5525 ? SUBM DR: Amaris Salgado CNM ? ENTERED: ??08/07/23-0898 ?SP TYPE: Pap Smr ?OTHR DR: Marisa [...] 66, 68) ?? HPV testing performed by [facility], [place], [place]. ??See reference laboratory ?? portion of the EMR for entire report. ?Clinical Information LMP: 07/17/23 Previous PAP test: 09/17/17, WNL ? Material Received ?? ThinPrep-Cervical Copies To: ?? Marisa Livingston MD ?? [address] [facility] ?? [place]GADO [address] ? [place] MIHAELAMassimo ?? [address] [facility] [facility] [address] [facility] ?? [place] [address] ?? [phone] ----- ------- Signed (signature on file) IDANIA Hutchinson (ASCP) 08/18/23 1317 ? ----- ------- ? END OF REPORT ? us Generic External Data Provider LAB CYTOLOGY GILBERT UGARTE Final Result [facility] [address] [facility] [place]gado [phone] * HIV Ab/Ag (IRAJ MARIA) (12/09/2022 1:30 PM EDT) HIV AB/AG Nonreactive Nonreactive [facility] Comment:HIV-1 p24 Ag and/or HIV-1/HIV-2 Ab not detected.A test result that is nonreactive does not exclude thepossibility of exposure to or infection with HIV-1 and/orHIV-2. Nonreactive results in this assay for individualswith prior exposure to HIV-1 and/or HIV-2 may be due toantigen and antibody levels that are below the limit ofdetection of this assay.The [employer] Quality Compliance Manager HIV Ag/Ab Combo assay result andsupplemental assay results should be interpreted inconjunction with the patient's clinical presentation,history and other laboratory results. If the results areinconsistent with clinical evidence, additional testing issuggested to confirm the result. 12/09/2022 1:30 PM EDT 12/09/2022 4:12 PM EDT us Marisa Livingston MD LAB BLOOD ORDERABLES Fin al Result [facility] [address] [place] [phone] * Lipid Panel, Standard (12/09/2022 1:30 PM EDT) Triglycerides 56 mg/dL [facility] Comment:Desirable Triglyceri de: less than 150 mg/dLBorderline High Triglyceride 150-199 mg/dLHigh Triglyceride: 200-499 mg/dLVery High Triglyceride: greater than or equal to 5OO mg/dL Cholesterol 114 mg/dL [facility] Comment:Desirable Cholestero l: less than 200 mg/dLBorderline High Cholesterol: 200-239 mg/dLHigh Cholesterol: greater than 239 mg/dL LDL Cholesterol Calculated 65 mg/dl [facility] Comment:Desirable LDL: less than 100 mg/dLNear Optimal/Above Optimal LDL: 110- 129 mg/dLBorderline High LDL: 130-159 mg/dLHigh LDL: 160-189 mg/dLVery High LDL: greater than or equal to 190 mg/dL HDL Cholesterol 38 mg/dL [facility] Comment:Desirable HDL: great er than 40 mg/dL Note: This HDL assay may give artificially low results in patients with liver disease. 12/09/2022 1:30 PM EDT 12/09/2022 4:12 PM EDT Marisa Livingston MD LAB BLOOD ORDERABLES Fin al Result [facility] [address] [place] [phone] from Last 3 Months or Most Recently Relevant to Health Maintenance Insurance [facility] C3 DENTAL-[facility] MEDICAID STAND ADULT Care Teams Cable Worker Helper Relationship Specialty Start Date End Date Marisa Livingston MD [address] [place] [phone] PCP - General Family Medicine 03/12/19 Perez eVrgara RN [address] [place] [phone] Wood GougerPolice Clerk 06/30/24
--- OUTSIDE RECORDS SUMMARY | 2024-07-16 11:09 | XMS_ITS | Encounter Summary ---
Author Organization [employer] Address [address] [facility] 7 [place] [address] Care Team Providers Care Dog Catcher Name Role Phone Marisa Livingston MD Primary Care Provider + Perez Vergara RN Unavailable Reason for Visit * Reason Comments Med Refill Encounter Details Date Type Department Care Team (Late st Contact Info) Description 03/04/2024 Refill [facility] MEDICINE [address] [place] [address] Marisa Livingston MD [address] [place] [address] Social History Tobacco Use Types Packs/Day Years [...] Description 08/06/2024 11:00 AM EDT Office Visit [facility] CHC ADULT DENTAL [address] [place] [address] Berlin Hagen, DMD [address] [place] [address] 08/06/2024 3:00 PM EDT Clinical Support [facility] DIABETES/NUTRITION [address] [place] [address] Mandi Pinedo, RD [address] [place] [address] 09/22/2024 11:30 AM EDT Telemedicine [facility] MEDICINE [address] [place] [address] Marisa Livingston MD [address] [place] [phone] documented as of this encounter Visit Diagnoses Not on filedocumented in this encounter Additional Health Concerns Assessment Noted Time PHQ-9 Depression Total Score: 17 024 9:31 AM EST documented as of this encounter Care Teams Dog Catcher Relationship Specialty Start Date End Date Marisa Livingston MD [address] [place] [address] PCP - General Family Medicine 03/12/19 Perez Vergaar RN [address] [place] [address] IRAJ Black [address] ChemistPublic Services Assistant 06/30/24 documented as of this encounter
--- OUTSIDE RECORDS SUMMARY | 2024-07-16 11:09 | XMS_ITS | Encounter Summary ---
Author Organization [employer] Address [address] [place] [address] [address] Care Team Providers Care Health Information Management Director Name Role Phone Marisa Livingston MD Primary Care Provider + Perez Vergara RN Unavailable Reason for Referral * Consultation (Routine) - Authorized Specialty Diagnoses / Procedures Referred By Contdaniela t Referred To Contact Hematology and Oncology Diagnoses Chronic anemia Jaki Cruz MD [address] [place] [address] Phone: tel: fax: [address] Phone: tel: fax: Referral ID Status Reason Start Date Expiration Date Visits Requested Visits Authorized [id number] Authorized Specialty Services Required 06/17/2024 06/17/2025 6 6 Encounter Details Date Type Department Care Team (Late st Contact Info) Description 06/17/2024 Orders Only [facility] WALK-IN CENTER [address] [place] [address] [phone] Jaki Cruz MD [address] [place] [address] [phone] Chronic anemia (Primary Dx) Social History Tobacco [...] t he electric, gas, oil or water [employer] threatened to shut off services in your [...] Description 08/06/2024 11:00 AM EDT Office Visit [facility] CHC ADULT DENTAL [address] [place] [address] Berlin Hagen DMD [address] [place] [address] 08/06/2024 3:00 PM EDT Clinical Support [facility] DIABETES/NUTRITION [address] [place] [address] [place] [address] 09/22/2024 11:30 AM EDT Telemedicine [facility] MEDICINE [address] [place] [address] Marisa Livingston MD [address] [place] [phone] Scheduled Referrals Name Type Priority Associated Diagnoses Order Schedule Referral to Hematology / Oncology Outpatient Referral Routine Chronic anemia Expected: 06/17/2024 (Approximate), Expires: 06/17/2025 documented as of this encounter Visit Diagnoses Diagnosis Chronic anemia- Primary Unspecified anemia documented in this encounter Additional Health Concerns Assessment Noted Time PHQ-9 Depression Total Score: 17 024 9:31 AM EST documented as of this encounter Care Teams Health Information Management Director Relationship Specialty Start Date End Date Marisa Livingston MD [address] [place] [address] PCP - General Family Medicine 03/12/19 Perez Vergara, CHAPITO [address] [place] [address] Hydrochloric Manufacturing SupervisorCounselor At Law 06/30/24 documented as of this encounter
--- OUTSIDE RECORDS SUMMARY | 2024-07-16 11:09 | XMS_ITS | Encounter Summary ---
Author Organization [employer] Address [address] [facility] [address] 7[address] [place] [address] Care Team Providers Care It Quality Assurance Analyst Name Role Phone Marisa Livingston MD Primary Care Provider + Reason for Visit * Reason Onset Date Comments ED EXPECT 06/17/2024 Encounter Details Date Type Department Care Team ([facility] st Contact Info) Description 06/17/2024 Telephone [facility] WALK-IN CENTER [address] [place] [address] Bettie Garay RN ED EXPECT Social History [...] PM EST Call to expect placed to [facility] ED per Dr. Cruz. Patient seen in [facility] this afternoon for dyspnea on exertion. Labs significant for Hgb 8.8/ Hematocrit 30.7 and D-dimer 232. Advised ED triage that patient reports she will be coming tomorrow morning as she has no childcare. documented in this encounter Plan of Treatment Upcoming Encounters Date Type Department Care Team (Late st Contact Info) Description 08/06/2024 11:00 AM EDT Office Visit [facility] CHC ADULT DENTAL [address] [place] [address] Berlin Hagen, DMD [address] [place] [address] 08/06/2024 3:00 PM EDT Clinical Support [facility] DIABETES/NUTRITION [address] [place] [address] [place] [address] 09/22/2024 11:30 AM EDT Telemedicine [facility] MEDICINE [address] [place] [address] Marisa Livingston MD [address] [place] [address] documented as of this encounter Visit Diagnoses Not on filedocumented in this encounter Additional Health Concerns Assessment Noted Time PHQ-9 Depression Total Score: 17 024 9:31 AM EST documented as of this encounter Care Teams It Quality Assurance Analyst Relationship Specialty Start Date End Date Marisa Livingston MD [address] [place] [address] PCP - General Family Medicine 03/12/19 documented as of this encounter
--- OUTSIDE RECORDS SUMMARY | 2024-07-16 11:10 | XMS_ITS | Encounter Summary ---
Author Organization [employer] Address [address] [facility] 7 [place] [address] Care Team Providers Care Radio Dispatcher Name Role Phone Marisa Livingston MD Primary Care Provider + Perez Vergara RN Unavailable [phone] Reason for Visit * Reason Comments Care Coordination [facility] Stacey soliman telephone call outreach Encounter Details Date Type Department Care Team (Latest Contact Info) Description 07/14/2024 Patient Outreach [facility] MEDICINE [address] [place] [address] Marisa Livingston MD [address] [place] [address] Care Coordination [facility] telephone call outreach) Social History Tobacco [...] encounter Progress Notes * Stacey Lloyd - 07/14/2024 2:36 PM EST CHW Stacey Lloyd placed outbound call to patient introducing herself from [employer] CM Department, in regards to offering CM-CHW program services. Patient's name and was confirmed. Patient agrees to participate in CHW- program for SDOH needs. SDOH screening completed: 07/14/24, CHW spoke to patient she is backed up with electricity and water bill, CHW recommended for her to apply [facility]Raft program at [facility], she did apply for VOC, but she is still waiting to see if she is approved. CHW reinforced direct contact information for any additional questions or concerns and extended clinic hours on Mondays and Wednesdays, and Walk-In Urgent Care Located in [facility].Patient provided with after-hours line for [facility], , which offer night time triage serviceand option to transfer to medical professionals provider if needed. Patient verbalizes understanding, and able torepeat back to gag writer. documented in this encounter Plan of Treatment Upcoming Encounters Date Type Department Care Team (Late st Contact Info) Description 08/06/2024 11:00 AM EDT Office Visit [facility] CHC ADULT DENTAL [address] [facility] [place] [address] Berlin Hagen, DMD [address] [place] [address] 08/06/2024 3:00 PM EDT Clinical Support [facility] DIABETES/NUTRITION [address] [place] [address] [place] [address] 09/22/2024 11:30 AM EDT Telemedicine [facility] MEDICINE [address] [place] [address] Marisa Livingston MD [address] [place] [address] documented as of this encounter Visit Diagnoses Not on filedocumented in this encounter Additional Health Concerns Assessment Noted Time PHQ-9 Depression Total Score: 17 025 9:47 AM EST documented as of this encounter Care Teams Radio Dispatcher Relationship Specialty Start Date End Date Marisa Livingston MD [address] [place] [address] PCP - General Family Medicine 03/12/19 Perez Vergara RN 505 [place] [address] [place] BoatmanContact Lens Blocker 06/30/24 documented as of this encounter
--- OUTSIDE RECORDS SUMMARY | 2024-07-16 11:10 | XMS_ITS | Encounter Summary ---
Author Organization [employer] Address [address] [facility] [address], [place] [address] Care Team Providers Care Dehydrating Press Operator Name Role Phone Marisa Livingston MD Primary Care Provider + Perez Vergara RN Unavailable Reason for Visit * Reason Onset Date Comments Appointment 07/12/2022 Encounter Details Date Type Department Care Team (Late st Contact Info) Description 07/12/2022 Telephone [facility] ADULT DENTAL [address] [place] [address] Yeison Arnold, DMD [address] [place] [address] Appointment Social History Tobacco Use Types Packs/Day [...] Description 08/06/2024 11:00 AM EDT Office Visit [facility] CHC ADULT DENTAL [address] [place], [place] [phone] Berlin Hagen, BERNIE [address] [place] [address] 08/06/2024 3:00 PM EDT Clinical Support [facility] DIABETES/NUTRITION [address] [place] [address] Mandi Pinedo, RD [address] [place] [address] 09/22/2024 11:30 AM EDT Telemedicine [facility] MEDICINE [address] [place] [address] Marisa Livingston MD [address] [place] [address] documented as of this encounter Visit Diagnoses Not on filedocumented in this encounter Additional Health Concerns Assessment Noted Time PHQ-9 Depression Total Score: 4 07/03/19 23 10:39 AM EST documented as of this encounter Care Teams Dehydrating Press Operator Relationship Specialty Start Date End Date Marisa Livingston MD [address] [place] [address] PCP - General Family Medicine 03/12/19 Perez Vergara RN [address] [place] [address] Game AgentHand Tube Winder 06/30/24 documented as of this encounter
--- OUTSIDE RECORDS SUMMARY | 2024-07-16 11:10 | XMS_ITS | Encounter Summary ---
Author Organization [employer] Address [address] [facility] [address] 7[address] [place] [address] Care Team Providers Care Rollway Worker Name Role Phone Marisa Livingston MD Primary Care Provider + Perez Vergara RN Unavailable [phone] Encounter Details Date Type Department Care Team (Latest Contact Info) Description 07/14/2024 Travel Social History Tobacco Use Types Packs/Day Years [...] Description 08/06/2024 11:00 AM EDT Office Visit [facility] CHC ADULT DENTAL [address] [place] [address] Berlin Hagen, BERNIE [address] [place] [address] 08/06/2024 3:00 PM EDT Clinical Support [facility] DIABETES/NUTRITION [address] [place] [address] Mandi Pinedo, MEAGAN [address] [place] [address] 09/22/2024 11:30 AM EDT Telemedicine [facility] MEDICINE [address] [place] [address] Marisa Livingston MD [address] [place] [address] documented as of this encounter Visit Diagnoses Not on filedocumented in this encounter Additional Health Concerns Assessment Noted Time PHQ-9 Depression Total Score: 17 025 9:47 AM EST documented as of this encounter Care Teams Rollway Worker Relationship Specialty Start Date End Date Marisa Livingston MD [address] [place] [address] PCP - General Family Medicine 03/12/19 Perez Vergara RN [address] [place] [address] [place] [address] Durable Medical Equipment TechnicianLive Truck Operator 06/30/24 documented as of this encounter
--- OUTSIDE RECORDS SUMMARY | 2024-07-16 11:10 | XMS_ITS | Encounter Summary ---
Author Organization [employer] Address [address] [place] [address] 7 [place] [address] Care Team Providers Care Trench Digging Machine Operator Name Role Phone Marisa Livingston MD Primary Care Provider + Perez Vergara RN Unavailable [phone] Encounter Details Date Type Department Care Team (Late st Contact Info) Description 06/27/2022 Abstract [facility] ADULT DENTAL [address] [place] [address] Jeramie Treadwell DDS [address] [place] [address] Social History Tobacco Use Types Packs/Day Years [...] Description 08/06/2024 11:00 AM EDT Office Visit [facility] ADULT DENTAL [address] [place], [place] [phone] Berlin Hagen DMD [address] [place] [address] 08/06/2024 3:00 PM EDT Clinical Support [facility] DIABETES/NUTRITION [address] [place] [address] [place] [address] 09/22/2024 11:30 AM EDT Telemedicine [facility] MEDICINE [address] [place] [address] Marisa Livingston MD [address] [place], [place] [phone] documented as of this encounter Visit Diagnoses Not on filedocumented in this encounter Care Teams Trench Digging Machine Operator Relationship Specialty Start Date End Date Marisa Livingston MD [address] [place], [place] [phone] PCP - General Family Medicine 03/12/19 Perez Vergara, CHAPITO [address] [facility] [place] [address] Receptionist Doctor'S OfficeGrocery Team Member 06/30/24 documented as of this encounter
--- OUTSIDE RECORDS SUMMARY | 2024-07-16 11:10 | XMS_ITS | Encounter Summary ---
Author Organization [employer] Address [address] [facility] 7 [place] [address] Care Team Providers Care Garment Steamer Name Role Phone Marisa Livingston MD Primary Care Provider + Perez Vergara RN Unavailable [phone] Reason for Visit * Reason Onset Date Comments Chart prep 07/09/2024 Encounter Details Date Type Department Care Team (Late st Contact Info) Description 07/09/2024 Telephone [facility] MEDICINE [address] [place] [address] Marisa Livingston MD 230 [place] [address] Chart prep Social History Tobacco Use Types Packs/Day Years [...] Telephone Encounter - Danika Chisholm [place] - 07/09/2024 3:13 PM EST Chart Prep Labs: done Images: done Vaccines due: yes Referrals: pending appt Screenings: Up to date Overdue care gaps: PHQ-9 documented in this encounter Plan of Treatment Upcoming Encounters Date Type Department Care Team (Late st Contact Info) Description 08/06/2024 11:00 AM EDT Office Visit [facility] CHC ADULT DENTAL [address] [place] [address] Berlin Hagen, DMD [address] [place] [address] 08/06/2024 3:00 PM EDT Clinical Support [facility] DIABETES/NUTRITION [address] [place] [address] Mandi Pinedo, MEAGAN [address] [place] [address] 09/22/2024 11:30 AM EDT Telemedicine [facility] MEDICINE [address] [place] [address] Marisa Livingston MD 230 [place] [address] documented as of this encounter Visit Diagnoses Not on filedocumented in this encounter Additional Health Concerns Assessment Noted Time PHQ-9 Depression Total Score: 17 024 9:31 AM EST documented as of this encounter Care Teams Garment Steamer Relationship Specialty Start Date End Date Marisa Livingston MD [address] [place] [address] PCP - General Family Medicine 03/12/19 Perez Vergara RN [address] [place] [address] Property CustodianCalibration Laboratory Technician 06/30/24 documented as of this encounter
--- OUTSIDE RECORDS SUMMARY | 2024-07-16 11:10 | XMS_ITS | Encounter Summary ---
Author Organization [employer] Address [address] [place] [address] 7 [place] [address] Care Team Providers Care Cigarette Making Machine Catcher Name Role Phone Marisa Livingston MD Primary Care Provider + Perez Vergara RN Unavailable [phone] Encounter Details Date Type Department Care Team (Latest Contact Info) Description 03/26/2019 Abstract [facility] CONVERSIONS Dental, Provider, DDS Social History [...] Description 08/06/2024 11:00 AM EDT Office Visit [facility] CHC ADULT DENTAL 505 [place] [address] Berlni Hagen, DMD 505 [place] [address] 08/06/2024 3:00 PM EDT Clinical Support [facility] DIABETES/NUTRITION 230 [place] [address] Mandi Pinedo, MEAGAN 230 [place] [address] 09/22/2024 11:30 AM EDT Telemedicine [facility] MEDICINE 230 [place] [address] Marisa Livingston MD 230 [place] [address] documented as of this encounter Visit Diagnoses Not on filedocumented in this encounter Care Teams Cigarette Making Machine Catcher Relationship Specialty Start Date End Date Marisa Livingston MD [address] [place] [address] PCP - General Family Medicine 03/12/19 Perez Vergara RN [address] [place] [address] Price ListerPrescription Clerk 06/30/24 documented as of this encounter
--- OUTSIDE RECORDS SUMMARY | 2024-07-16 11:10 | XMS_ITS | Encounter Summary ---
Author Organization [employer] Address [address] [facility] 7 [place] [address] Care Team Providers Care Private Branch Exchange Service Adviser Name Role Phone Marisa Livingston MD Primary Care Provider + Reason for Visit * Reason Comments Care Coordination [facility] telephone call outreach Encounter Details Date Type Department Care Team (Latest Contact Info) Description 06/21/2024 Patient Outreach [facility] MEDICINE 230 [place] [address] Marisa Livingston MD 230 [place] [address] Care Coordination ([facility] Lloyd telephone call outreach) Social History [...] outbound call to patient introducing herself from [facility] CM Department, in regards to offering services. Patient's name and was confirmed. Patient agrees toparticipate in program. Appt. for initial assessment scheduled for 06/30/24 @ 1:00PM. CHW reinforced direct contact information or CM for any additional questions or concerns and extended clinic hours on Mondays and Wednesdays, and Walk-In Urgent Care Located in [facility]. Patient provided with after-hours line for [facility], , which offer night time triage service and option to transfer to international relations professor provider if needed. Patient verbalizes understanding, and a ble to repeat back to expert medical writer. documented in this encounter Plan of Treatment Upcoming Encounters Date Type Department Care Team ([facility] st Contact Info) Description 08/06/2024 11:00 AM EDT Office Visit [facility] CHC ADULT DENTAL [address] [place] [address] Berlin Hagen, DMD [address] [place] [address] 08/06/2024 3:00 PM EDT Clinical Support [facility] DIABETES/NUTRITION [address] [place] [address] [place] [address] 09/22/2024 11:30 AM EDT Telemedicine [facility] MEDICINE [address] [place] [address] Marisa Livingston MD 230 [place] [address] documented as of this encounter Visit Diagnoses Not on filedocumented in this encounter Additional Health Concerns Assessment Noted Time PHQ-9 Depression Total Score: 17 024 9:31 AM EST documented as of this encounter Care Teams Private Branch Exchange Service Adviser Relationship Specialty Start Date End Date Marisa Livingston MD [address] [place] [address] PCP - General Family Medicine 03/12/19 documented as of this encounter
--- OUTSIDE RECORDS SUMMARY | 2024-07-16 11:10 | XMS_ITS | Encounter Summary ---
Author Organization [employer] Address [address] [place] [address] 7 [place] [address] Care Team Providers Care Construction Laborer Name Role Phone Marisa Livingston MD Primary Care Provider + Perez Vergara RN Unavailable [phone] Reason for Visit * Reason Onset Date Comments Care Management 07/14/2024 [facility]- f/u call Encounter Details Date Type Department Care Team ([facility] st Contact Info) Description 07/14/2024 Telephone [facility] MEDICINE [address] [place], [place] [phone] Marisa Livingston MD [address] [place] [address] Care Management ([facility]- f/u call) Social History Tobacco Use Types Packs/Day Years [...] Telephone Encounter - Perez Vergara RN - 07/14/2024 9:51 AM EST CM Perez Vergara RN and CHW placed outbound call to patient. Patient's name, and address confirmed. Patient states she has been feeling extremely SOB with activity. She states also becomes SOB when speaking. Per patient, also feels SOB when laying flat. She states she has been propping herselfon several pillows which helps with breathing when she is resting. Patient reports having an Advairand albuterol. Reports last using Rx last night. Patient seen by pulmonology on 07/01. Patient was started on furosemide. Echo also ordered. Per patient, was started on furosemide due to fluid retention/ leg edema. Patient states she did not note having leg edema but provider did tell her she was ret aining fluid. Per patient, took the furosemide as directed. She states she noted no change in symptoms. Patient states she is scheduled for the echo on 07/16/24. Per patient, also scheduled to see Cardiology and Hematology that same day. She states she has transportation and denies any barriers to attending the visits. Per patient, has noted that she has been gaining weight. She denies taking daily weight. Per patient, last weighed herself about 2 weeks ago. CM provided education and advised patient of s/s that require immediate medical attention. She verbalizes understanding. patient aware ofher scheduled Televisit with PCP today 07/14 at 10:00am. She agrees to discuss symptoms with PCP during scheduled visit. Agrees to follow up sooner as needed. No further questions or concerns. CM reinforced direct contact information or CHW for any additional questions or concerns. Education provided on Walk-In Urgent Care located in [facility] of [facility]. Patient provided with after-hours line for [facility], , which offer night time triage service and option to transfer to quality control assessor provider if needed. Patient verbalizes understanding, and able to repeat back to bond underwriter. A follow up call will be placed within 10 days, patientagrees with plan. documented in this encounter Plan of Treatment Upcoming Encounters Date Type Department Care Team (Late st Contact Info) Description 08/06/2024 11:00 AM EDT Office Visit [facility] CHC ADULT DENTAL [address] [place], [place] [phone] Berlin Hagen, BERNIE [address] [place] [address] 08/06/2024 3:00 PM EDT Clinical Support [facility] DIABETES/NUTRITION [address] [place] [address] Mandi Pinedo, MEAGAN [address] [place] [address] 09/22/2024 11:30 AM EDT Telemedicine [facility] MEDICINE [address] [place] [address] Marisa Livingston MD [address] [place] [address] documented as of this encounter Visit Diagnoses Not on filedocumented in this encounter Additional Health Concerns Assessment Noted Time PHQ-9 Depression Total Score: 17 025 9:47 AM EST documented as of this encounter Care Teams Construction Laborer Relationship Specialty Start Date End Date Marisa Livingston MD [address] [place] [address] PCP - General Family Medicine 03/12/19 Perez Vergara RN [address] [place] [address] Vp ConstructionHelp Desk Assistant 06/30/24 documented as of this encounter
--- OUTSIDE RECORDS SUMMARY | 2024-07-16 11:10 | XMS_ITS | Encounter Summary ---
Author Organization [employer] Address 75 [facility] 7 [place] [address] Care Team Providers Care Demographic Analyst Name Role Phone Marisa Livingston MD Primary Care Provider + Encounter Details Date Type Department Care Team ([facility] st Contact Info) Description 06/29/2024 Patient Outreach [facility] MEDICINE [address] [place] [address] Marisa Livingston MD [address] [place] [address] Social History Tobacco Use Types Packs/Day Years [...] 11:00 AM EDT Office Visit [facility] CHC ADULT DENTAL [address] [place] [address] Berlin Hagen, BERNIE [address] [place] [address] 08/06/2024 3:00 PM EDT Clinical Support [facility] DIABETES/NUTRITION 230 [place] [address] [place] [address] 09/22/2024 11:30 AM EDT Telemedicine [facility] MEDICINE [address] [place] [address] Marisa Livingston MD [address] [place] [address] documented as of this encounter Visit Diagnoses Not on filedocumented in this encounter Additional Health Concerns Assessment Noted Time PHQ-9 Depression Total Score: 17 024 9:31 AM EST documented as of this encounter Care Teams Demographic Analyst Relationship Specialty Start Date End Date Marisa Livingston MD 230 [place] [address] PCP - General Family Medicine 03/12/19 documented as of this encounter
--- OUTSIDE RECORDS SUMMARY | 2024-07-16 11:10 | XMS_ITS | Encounter Summary ---
Author Organization [employer] Address [address] [facility] [address] 7[address] [place] [address] Care Team Providers Care Agriculture Department Chair Name Role Phone Marisa Livingston MD Primary Care Provider + Perez Vergara RN Unavailable [phone] Encounter Details Date Type Department Care Team (Late st Contact Info) Description 07/19/2022 Abstract [facility] ADULT DENTAL [address] [place] [address] Berlin Hagen, DMD [address] [place] [address] Social History Tobacco Use Types Packs/Day Years [...] Office Visit [facility] CHC ADULT DENTAL 505 [place] [address] Berlin Hagen DMD [address] [place], [place] 08/06/2024 3:00 PM EDT Clinical Support [facility] DIABETES/NUTRITION [address] [place] [address] [place] [address] 09/22/2024 11:30 AM EDT Telemedicine [facility] MEDICINE [address] [place] [address] Marisa Livingston MD [address] [place], [place] documented as of this encounter Visit Diagnoses Not on filedocumented in this encounter Additional Health Concerns Assessment Noted Time PHQ-9 Depression Total Score: 4 07/03/19 23 10:39 AM EST documented as of this encounter Care Teams Agriculture Department Chair Relationship Specialty Start Date End Date Marisa Livingston MD 230 [place] [address] PCP - General Family Medicine 03/12/19 Perez Vergara RN [address] [place], [place] Information Systems AdministratorAssembly Riveter 06/30/24 documented as of this encounter
--- OUTSIDE RECORDS SUMMARY | 2024-07-16 11:10 | XMS_ITS | Encounter Summary ---
Author Organization [employer] Address [address] [facility] [address] 7 [place] [address] Care Team Providers Care Program Services Assistant Name Role Phone Marisa Livingston MD Primary Care Provider + Reason for Visit * Reason Onset Date Comments Care Management 06/21/2024 [facility]- chart revi ew Encounter Details Date Type Department Care Team ([facility] st Contact Info) Description 06/21/2024 Telephone [facility] MEDICINE 230 [place] [address] Perez Vergara RN [address] [place] [address] Care Management (C3[facility]- chart review) Social History [...] aura, grief, bipolar depression, anemia. Specialists include [facility] hematology/oncology, [facility] pulmonology, [facility] POWER TOOL REPAIR TECHNICIAN, [facility] physical therapy, [facility] optometry, nutrition, [facility] dental. ED visits within the last 12 months include [facility] on 06/18/24, and [facility] on 05/26/24. Last appointment in PCP office on 06/17/24. Next appointment scheduled for 07/02/24 @12:15 PM for f/u with PCP. documented in this encounter Plan of Treatment Upcoming Encounters Date Type Department Care Team (Late st Contact Info) Description 08/06/2024 11:00 AM EDT Office Visit [facility] CHC ADULT DENTAL 505 [place] [address] Berlin Hagen, BERNIE 505 [place] [address] 08/06/2024 3:00 PM EDT Clinical Support [facility] DIABETES/NUTRITION [address] [place] [address] [place] [address] 09/22/2024 11:30 AM EDT Telemedicine [facility] MEDICINE [address] [place], [place] [phone] Marisa Livingston MD 230 [place] [address] documented as of this encounter Visit Diagnoses Not on filedocumented in this encounter Additional Health Concerns Assessment Noted Time PHQ-9 Depression Total Score: 17 024 9:31 AM EST documented as of this encounter Care Teams Program Services Assistant Relationship Specialty Start Date End Date Marisa Livingston MD [address] [place] [phone] PCP - General Family Medicine 03/12/19 documented as of this encounter
--- OUTSIDE RECORDS SUMMARY | 2024-07-16 11:10 | XMS_ITS | Encounter Summary ---
Author Organization [employer] Address 75 [facility] 7 [place] [address] Care Team Providers Care Tool Grinder Operator External Name Role Phone Marisa Livingston MD Primary Care Provider + Perez Vergara RN Unavailable [phone] Reason for Visit * Reason Onset Date Comments Chart prep 07/01/2024 Encounter Details Date Type Department Care Team (Late st Contact Info) Description 07/01/2024 Telephone [facility] MEDICINE [address] [place] [address] Marisa Livingston MD [address] [place] [address] Chart prep Social History Tobacco Use Types [...] Telephone Encounter - Danika Chisholm [place] - 07/01/2024 3:21 PM EST Chart Prep Labs: done Images: done Vaccines due: yes Referrals: pending appt Screenings: N/A Overdue care gaps: PHQ-9 documented in this encounter Plan of Treatment Upcoming Encounters Date Type Department Care Team (Late st Contact Info) Description 08/06/2024 11:00 AM EDT Office Visit [facility] CHC ADULT DENTAL [address] [place] [address] Berlin Hagen, DMD [address] [place] [address] 08/06/2024 3:00 PM EDT Clinical Support [facility] DIABETES/NUTRITION [address] [place] [address] Mandi Pinedo, MEAGAN [address] [place] [address] 09/22/2024 11:30 AM EDT Telemedicine [facility] MEDICINE [address] [place] [address] Marisa Livingston MD 230 [place] [address] documented as of this encounter Visit Diagnoses Not on filedocumented in this encounter Additional Health Concerns Assessment Noted Time PHQ-9 Depression Total Score: 17 024 9:31 AM EST documented as of this encounter Care Teams Tool Grinder Operator External Relationship Specialty Start Date End Date Marisa Livingston MD [address] [place] [address] PCP - General Family Medicine 03/12/19 Perez Vergara RN [address] [place] [address] Internet Marketing SpecialistPainter And Decorator Apprentice 06/30/24 documented as of this encounter
--- OUTSIDE RECORDS SUMMARY | 2024-07-16 11:10 | XMS_ITS | Encounter Summary ---
Author Organization [employer] Address 75 [facility] 7 [place] [address] Care Team Providers Care Shop Tech Name Role Phone Marisa Livingston MD Primary Care Provider + Reason for Visit * Reason Comments Care Coordination [facility] telephone call outreach Encounter Details Date Type Department Care Team (Latest Contact Info) Description 06/29/2024 Patient Outreach [facility] MEDICINE 230 [place] [address] Marisa Livingston MD [address] [place] [address] Care Coordination ([facility] Lloyd telephone call outreach) Social History [...] at this time. LVM introducing herself from [facility] CM Department, reminding patient of initial assessment appt via telephone on 06/30/24 @ 1:00PM with Adult Complex Care program services. Requested call back to , as well as for any additional questions or concerns. documented in this encounter Plan of Treatment Upcoming Encounters Date Type Department Care Team (Late st Contact Info) Description 08/06/2024 11:00 AM EDT Office Visit [facility] CHC ADULT DENTAL [address] [place] [address] Berlin Hagen, BERNIE 505 [place] [address] 08/06/2024 3:00 PM EDT Clinical Support [facility] DIABETES/NUTRITION 230 [place] [address] [place] [address] 09/22/2024 11:30 AM EDT Telemedicine [facility] MEDICINE [address] [place] [address] Marisa Livingston MD [address] [place] [address] documented as of this encounter Visit Diagnoses Not on filedocumented in this encounter Additional Health Concerns Assessment Noted Time PHQ-9 Depression Total Score: 17 024 9:31 AM EST documented as of this encounter Care Teams Shop Tech Relationship Specialty Start Date End Date Marisa Livingston MD [address] [place] [address] PCP - General Family Medicine 03/12/19 documented as of this encounter
--- OUTSIDE RECORDS SUMMARY | 2024-07-16 11:10 | XMS_ITS | Encounter Summary ---
Author Organization [employer] Address 75 [facility] 7 [place] [address] Care Team Providers Care Business Writer Name Role Phone Marisa Livingston MD Primary Care Provider + Perez Vergara RN Unavailable Reason for Visit * Reason Onset Date Comments Appointment Request 07/09/2024 Encounter Details Date Type Department Care Team ([facility] st Contact Info) Description 07/09/2024 Telephone [facility] MEDICINE [address] [place] [address] Marisa Livingston MD [address] [place] [address] Appointment Request Social History Tobacco Use Types [...] Encounter - Danika Chisholm [place] - 07/09/2024 2:19 PM EST Tc to pt to scheduled f/u appt for pt's son as stated on previous TC encounter. Pt needs to r/s herappt with PCP as son has appt on 07/13/24. Appt has been rescheduled to 07/14/24 at 10:00 am as a TV. documented in this encounter Plan of Treatment Upcoming Encounters Date Type Department Care Team (Late st Contact Info) Description 08/06/2024 11:00 AM EDT Office Visit [facility] CHC ADULT DENTAL 505 [place] [address] Berlin Hagen, BERNIE 505 [place] [address] 08/06/2024 3:00 PM EDT Clinical Support [facility] DIABETES/NUTRITION 230 [place] [address] [place] [address] 09/22/2024 11:30 AM EDT Telemedicine [facility] MEDICINE [address] [place], [place] [phone] Marisa Livingston MD [address] [place] [address] documented as of this encounter Visit Diagnoses Not on filedocumented in this encounter Additional Health Concerns Assessment Noted Time PHQ-9 Depression Total Score: 17 024 9:31 AM EST documented as of this encounter Care Teams Business Writer Relationship Specialty Start Date End Date Marisa Livingston MD [address] [place], [place] [phone] PCP - General Family Medicine 03/12/19 Perez Vergara RN [address] [place] [address] Water/Wastewater Project ManagerAttacher 06/30/24 documented as of this encounter
--- OUTSIDE RECORDS SUMMARY | 2024-07-16 11:10 | XMS_ITS | Encounter Summary ---
Author Organization [employer] Address 75 [facility] 7 [place] [address] Care Team Providers Care Inspector Toys Name Role Phone Marisa Livingston MD Primary Care Provider + Perez Vergara RN Unavailable [phone] Reason for Visit * Reason Onset Date Comments Appointment Confirmation 07/14/2024 Encounter Details Date Type Department Care Team (Late st Contact Info) Description 07/14/2024 Telephone [facility] MEDICINE [address] [place] [address] Marisa Livingston MD 230 [place] [address] Appointment Confirmation Social History Tobacco Use Types Packs/Day Years [...] Encounter - Danika Chisholm [place] - 07/14/2024 10:16 AM EST Tc to [facility] to confirm any upcoming appt for pt. Spoke to Yuni who stated pt is scheduled 07/16/24 at 1:20 pm with hematology and 07/16/24 at 10:00 am for echo. documented in this encounter Plan of Treatment Upcoming Encounters Date Type Department Care Team (Late st Contact Info) Description 08/06/2024 11:00 AM EDT Office Visit [facility] CHC ADULT DENTAL 505 [place] [address] Berlin Hagen, DMD 505 [place] [address] 08/06/2024 3:00 PM EDT Clinical Support [facility] DIABETES/NUTRITION [address] [place] [address] [place] [address] 09/22/2024 11:30 AM EDT Telemedicine [facility] MEDICINE [address] [place] [address] Marisa Livingston MD 230 [place], [place] [phone] documented as of this encounter Visit Diagnoses Not on filedocumented in this encounter Additional Health Concerns Assessment Noted Time PHQ-9 Depression Total Score: 17 025 9:47 AM EST documented as of this encounter Care Teams Inspector Toys Relationship Specialty Start Date End Date Marisa Livingston MD 230 [place], [place] [phone] PCP - General Family Medicine 03/12/19 Perez Vergara, CHAPITO [address] [place] [address] Insole And Outsole SplitterBallpoint Pen Cartridge Tester 06/30/24 documented as of this encounter
--- OUTSIDE RECORDS SUMMARY | 2024-07-16 11:10 | XMS_ITS | Encounter Summary ---
Author Organization [employer] Address [address] [facility] 7 [place] [address] Care Team Providers Care Sexual Health Physician Name Role Phone Marisa Livingston MD Primary Care Provider + Perez Vergara RN Unavailable [phone] Reason for Visit * Reason Onset Date Comments Chart prep 07/07/2024 Encounter Details Date Type Department Care Team (Late st Contact Info) Description 07/07/2024 Telephone [facility] MEDICINE [address] [place] [address] Marisa Livingston MD [address] [place] [address] Chart prep Social History Tobacco Use Types [...] Telephone Encounter - Danika Chisholm MA - 07/07/2024 11:01 AM EST Chart Prep Labs: done Images: done Vaccines due: yes Referrals: pending appt Screenings: N/A Overdue care gaps: PHQ-9 documented in this encounter Plan of Treatment Upcoming Encounters Date Type Department Care Team (Late st Contact Info) Description 08/06/2024 11:00 AM EDT Office Visit [facility] CHC ADULT DENTAL [address] [place] [address] Berlin Hagen, DMD [address] [place] [address] 08/06/2024 3:00 PM EDT Clinical Support [facility] DIABETES/NUTRITION [address] [place] [address] Mandi Pinedo, MEAGAN [address] [place] [address] 09/22/2024 11:30 AM EDT Telemedicine [facility] MEDICINE [address] [place] [address] Marisa Livingston MD [address] [place] [address] documented as of this encounter Visit Diagnoses Not on filedocumented in this encounter Additional Health Concerns Assessment Noted Time PHQ-9 Depression Total Score: 17 024 9:31 AM EST documented as of this encounter Care Teams Sexual Health Physician Relationship Specialty Start Date End Date Marisa Livingston MD [address] [place] [address] PCP - General Family Medicine 03/12/19 Perez Vergara RN [address] [place] [address] Instrumental Music TeacherQa Software Tester 06/30/24 documented as of this encounter
--- OUTSIDE RECORDS SUMMARY | 2024-07-16 11:10 | XMS_ITS | Encounter Summary ---
Author Organization [employer] Address [address] [place] [address] [facility] [place] [address] Care Team Providers Care Dust Control Engineer Name Role Phone Marisa Livingston MD Primary Care Provider + Perez Vergara RN Unavailable [phone] Reason for Visit * Reason Onset Date Comments Care Management 06/30/2024 C3CM- initial as sessment/enrollment Encounter Details Date Type Department Care Team ([facility] st Contact Info) Description 06/30/2024 Telephone [facility] MEDICINE [address] [place] [address] Marisa Livingston MD [address] [place] [address] Care Management (C3- initial assessment/enrollment) Social History [...] RN - 06/30/2024 2:18 PM EST GEOVANY Vegrara RN, provided notification to PCP Dr. Livingston [...] report being followed by behavioral health with [facility]. She is established by a therapist and psychiatrist which she sees every 2 weeks. Pt reports doing well emotionally today, denies any SI/HI. She states she is able to contact her therapist as needed and confirms having crisis # to use as needed. Patient being seen by a neurologist about 1-2 years ago for her migraines. Patient reports being seen at [facility] on 06/18/24 for f/u on lab [...] office. CM noted no pending appointment in [facility]. Patient is agreeable for CM to call these offices to schedule follow up appointments. Patient denies any vision or dental concerns. Patient uses glasses and last eye exam was last year here at [facility]. Patient reports last dental exam here at [facility] about 5 months ago. Patient is mostly independent with ADL's. She states that at time she would need help with cleaning due to extreme lower back pain.Patient denies use or need of any assistive devices. Per pt, was prescribed a nebulizer machine in the past that she never picked up. Patient states that prescription has but agreed to consult with tuckpointer tomorrow. She report gaining weight due to [...] understanding, and able to repeat back to junior copywriter. A follow up call will be placed within 10 days, patient agrees with plan. documented in this encounter Plan of Treatment Upcoming Encounters Date Type Department Care Team (Late st Contact Info) Description 08/06/2024 11:00 AM EDT Office Visit [facility] CHC ADULT DENTAL [address] [place], [place] [phone] Berlin Hagen, DMD [address] [place] [address] 08/06/2024 3:00 PM EDT Clinical Support [facility] DIABETES/NUTRITION [address] [place] [address] [place] [address] 09/22/2024 11:30 AM EDT Telemedicine [facility] MEDICINE [address] [place] [address] Marisa Livingston MD [address] [place] [address] documented as of this encounter Visit Diagnoses Not on filedocumented in this encounter Additional Health Concerns Assessment Noted Time PHQ-9 Depression Total Score: 17 024 9:31 AM EST documented as of this encounter Care Teams Dust Control Engineer Relationship Specialty Start Date End Date Marisa Livingston MD [address] [place] [address] PCP - General Family Medicine 03/12/19 Perez Vergara RN [address] [place] [address] Statistical AssistantCustomer Service Consultant 06/30/24 documented as of this encounter
--- OUTSIDE RECORDS SUMMARY | 2024-07-16 11:10 | XMS_ITS | Encounter Summary ---
Author Organization [employer] Address [address] [facility] [address] [place] [address] Care Team Providers Care Senior Partner Name Role Phone Marisa Livingston MD Primary Care Provider + Encounter Details Date Type Department Care Team ([facility] st Contact Info) Description 06/21/2024 Telephone [facility] MEDICINE [address] [place], [place] [phone] Jaki Cruz MD [address] [place] [address] Social History Tobacco Use Types Packs/Day Years [...] below per Dr. Cruz (pt reports no pediatrician active practice needed, can understanding. Pt verbalized understanding. No questions or concerns expressed at this time. Pt to F/U as needed. [id number] placed to pt regarding message below per Dr. Cruz. No answer. Voice message left for pt to return call to [facility]. RN will forward to Walk In Nurses to make second attempt. Pt was sent to ER by me for elevated d dimer CT was negative for PE but showed enlargement of the heart. Please let pt know and let her know I am referring her to a sack keeper (heart doctor) to seeif this might be causing her symptoms. Thank you. * Telephone Encounter - Jaki Cruz MD - 06/21/2024 9:35 AM EST Pt was sent to ER by me for elevated d dimer CT was negative for PE but showed enlargement of the heart. Please let pt know and let her know I am referring her to a sack keeper (heart doctor) to seeif this might be causing her symptoms. Thank you. documented in this encounter Plan of Treatment Upcoming Encounters Date Type Department Care Team (Late st Contact Info) Description 08/06/2024 11:00 AM EDT Office Visit [facility] CHC ADULT DENTAL [address] [facility] [place] [address] Berlin Hagen, DMD [address] [place] [address] 08/06/2024 3:00 PM EDT Clinical Support [facility] DIABETES/NUTRITION [address] [place] [address] [place] [address] 09/22/2024 11:30 AM EDT Telemedicine [facility] MEDICINE [address] [place] [address] Marisa Livingston MD [address] [place] [address] documented as of this encounter Visit Diagnoses Not on filedocumented in this encounter Additional Health Concerns Assessment Noted Time PHQ-9 Depression Total Score: 17 024 9:31 AM EST documented as of this encounter Care Teams Senior Partner Relationship Specialty Start Date End Date Marisa Livingston MD [address] [place] [address] PCP - General Family Medicine 03/12/19 documented as of this encounter
--- OUTSIDE RECORDS SUMMARY | 2024-07-16 11:10 | XMS_ITS | Encounter Summary ---
Author Organization [employer] Address [address] [facility] 7 [place] [address] Care Team Providers Care Manager Agency Name Role Phone Marisa Livingston MD Primary Care Provider + Perez Vergara RN Unavailable [phone] Reason for Visit * Reason Onset Date Comments Appointment Request 07/09/2024 Encounter Details Date Type Department Care Team ([facility] st Contact Info) Description 07/09/2024 Telephone [facility] MEDICINE [address] [place] [address] Marisa Livingston MD [address] [place] [address] Appointment Request Social History Tobacco Use Types [...] encounter Miscellaneous Notes * Telephone Encounter - Claribel Holt - 07/09/2024 8:57 AM EST Tc from pt stating her son has an appt on 07/13 and needs to reschedule appt with pcp. Contact pt, amharic documented in this encounter Plan of Treatment Upcoming Encounters Date Type Department Care Team ([facility] st Contact Info) Description 08/06/2024 11:00 AM EDT Office Visit [facility] CHC ADULT DENTAL [address] [place] [address] Berlin Hagen, DMD [address] [place] [address] 08/06/2024 3:00 PM EDT Clinical Support [facility] DIABETES/NUTRITION [address] [place] [address] Mandi Pinedo, MEAGAN [address] [place] [address] 09/22/2024 11:30 AM EDT Telemedicine [facility] MEDICINE [address] [place] [address] Marisa Livingston MD [address] [place] [address] documented as of this encounter Visit Diagnoses Not on filedocumented in this encounter Additional Health Concerns Assessment Noted Time PHQ-9 Depression Total Score: 17 024 9:31 AM EST documented as of this encounter Care Teams Manager Agency Relationship Specialty Start Date End Date Marisa Livingston MD [address] [place] [address] PCP - General Family Medicine 03/12/19 Perez Vergara RN [address] [place] [address] Investment DirectorTransplant Rn 06/30/24 documented as of this encounter
--- OUTSIDE RECORDS SUMMARY | 2024-07-16 11:10 | XMS_ITS | Encounter Summary ---
Author Organization [facility] [employer] [facility] [employer] Address [address] [place] [address] [facility] [place] [address] Care Team Providers Care Curtain Roller Assembler Name Role Phone Marisa Livingston MD Primary Care Provider + Perez Vergara RN Unavailable [phone] Reason for Referral * Consultation (Routine) - Authorized Specialty Diagnoses / Procedures Referred By Nadya us Referred To Contact Nutrition Diagnoses Obesity due to excess calories without serious comorbidity, unspecified class Marisa Livingston MD [address] [place] [address] Phone: tel: fax: Referral ID Status Reason Start Date Expiration Date Visits Requested Visits Authorized [id number] Authorized Consult and Treat 07/14/2024 07/14/2025 1 1 * Consultation (Routine) - Pending Review Specialty Diagnoses / Procedures Referred By Nadya us Referred To Contact Obstetrics and Gynecology Diagnoses Menorrhagia with regular cycle Marisa Livingston MD [address] [place] [address] Phone: tel: fax: Referral ID Status Reason Start Date Expiration Date Visits Requested Visits Authorized [id number] Pending Review Specialty Services Required 07/14/2024 07/14/2025 1 1 Reason for Visit * Reason Comments Asthma Encounter Details Date Type Department Care Team (Late st Contact Info) Description 07/14/2024 10:00 AM EST Telemedicine [facility]INE [address] [facility] [place] [address] Marisa Livingston MD [address] [facility] [place] [address] Moderate persistent asthma without complication (Primary Dx); Cardiac enlargement; Menorrhagia with regular cycle; Obesity due to excess calories without serious comorbidity, unspecified class Social History Tobacco Use Types Packs/Day Years [...] as of this encounter Progress Notes * Marisa Livingston MD - 07/14/2024 10:00 AM EST SUBJECTIVE: Cleo Sun is a 33 y.o. year old female who presents for follow up DUB/asthma. Denies recent illness, injury, or hospitalization. Patient today on a telehealth visit for fu asthma. She was seen in the ED with influenza complications and asthma exacerbation. She was started on Advair and Albuterol seen by Metal Reed Tuner (Dr. Parada) who started her on Lasix 40 mg and ordered and echo due to recently enlarged heart finding on ED Chest x-ray. Patient complains of fatigue, cough and shortness of breath at times. She notices every time she isexposed to any irritant or allergen it causes her to have an asthma exacerbation. She is compliant with her medications and neb treatments. She uses albuterol inhaler every 4 hrs. She has appointment on 07/22/2024 with vp transportation She has an appointment on 07/16/2024 for echocardiogram and hematology due to abnormal D-dimer result at ED visit. LMP 07/01/2024 X 8 days, menorrhagia. She is not taking iron rx. Last visit with her Profiling Machine Operator she has told everything was reportedly normal . Acute Concerns: Social History Social History Narrative Not on file Patient Active Problem List Diagnosis Accidental fall Acute frontal sinusitis Blurring of visual image Chronic low back pain Grief Knee pain Migraine without aura, not refractory Morbid obesity (CMS/HCC) Numbness of hand Pain in wrist Recurrent urinary tract infection Dyspnea on exertion DUB (dysfunctional uterine bleeding) Obesity due to excess calories without serious comorbidity Encounter for preventive health examination Bipolar depression (CMS/HCC) Left shoulder pain Exercise counseling Dietary counseling Periodontal disease Dental calculus Decreased vision in both eyes Menorrhagia with regular cycle Moderate persistent asthma without complication Cardiac enlargement Family History Problem Relation Name Age of Onset Blindness Sister Other (legal blindness) Brother Malig Hypertension Mother 22 No Known Problems Father Unknown Colon cancer Maternal Grandfather 70 Review of Systems Constitutional: Positive for fatigue. Negative for chills and fever. HENT: Negative for congestion, ear pain, nosebleeds, rhinorrhea, sinus pressure, sore throat and trouble swallowing. Eyes: Negative for pain and discharge. Respiratory: Positive for cough and shortness of breath. Negative for chest tightness. Cardiovascular: Positive for leg swelling. Negative for chest pain and palpitations. Gastrointestinal: Negative for abdominal pain, blood in stool, constipation, diarrhea and nausea. Endocrine: Negative for polydipsia and polyuria. Genitourinary: Positive for menstrual problem (Menorrhagia). Negative for dysuria, frequency, genital sores, pelvic pain and vaginal discharge. Musculoskeletal: Negative for back pain and neck pain. Skin: Negative for rash. Allergic/Immunologic: Positive for environmental allergies. Neurological: Negative for dizziness, seizures, weakness, light-headedness and headaches. Hematological: Negative for adenopathy. Psychiatric/Behavioral: Negative for agitation, behavioral problems, self-injury and suicidal ideas. OBJECTIVE: There were no vitals filed for this visit. Physical Exam Vitals reviewed: Patient seen on Video Televisit, she looks in no respiratory distress, after a fewsentences she has to stop and catch her breath.. Problem List Items Addressed This Visit Moderate persistent asthma without complication - Primary Uncontrolled, worsening s/p Influenza. Chronic exposure to environmental allergens and extreme temperatures. Continue close FU with Metal Reed Tuner. Continue Advair plus Duo Neb, awaiting pa for Fasenra. Will consider allergy testing. Relevant Orders T-SPOT??.TB Cardiac enlargement Patient probably has Cor Pulmonale or Pulmonary HTN, FU echo results Cardiology referral pending Continue Lasix for now and check BMP prior to next visit. Advised regarding weight reduction and optimal control of asthma. Relevant Orders Basic Metabolic Panel Menorrhagia with regular cycle Persistent, most probable cause of anemia. I will refer to Mobile Lounge Driver Or Operator at [facility] for treatment that may include IUD for one year as patient wants toget . She agreed to hormonal treatment if needed and delay until medical conditions are more stable. Relevant Orders Referral to Gynecology Obesity due to excess calories without serious comorbidity Discussed re weight reduction options including exercise, life style modifications, diet. Recommended to decrease soda and sugary beverage consumption, increase protein intake with meals (at least 1 portion of protein with each meal) to assist with satiety, increase dietary fiber Recommended at least 150 min/week of moderate intensity exercise. She agreed to referral to dietitian May need pharmacological intervention Relevant Orders Referral to Nutrition Therapy Follow Up: Current Outpatient Medications on File Prior to Visit Medication Sig Dispense Refill benzonatate (Tessalon) 100 MG capsule Take 1 capsule by mouth every 8 (eight) hours if needed for cough. acetaminophen (Tylenol) 500 MG tablet take 1 tablet by oral route every6 -8 hours as needed not to exceed 4 tablets per 24hrs albuterol 108 (90 Base) MCG/ACT inhaler Inhale 2 puffs every 4 (four) hours. 18 g 2 ergocalciferol (Vitamin D2) 1.25 MG (30335 UT) capsule TAKE 1 CAPSULE(1.25 MG) BY MOUTH 1 TIME EVERY WEEK 12 capsule 1 Fasenra Pen 30 MG/ML injection [] ferrous sulfate (Fe Tabs) 325 (65 Fe) MG EC tablet Take 1 tablet (325 mg) by mouth with breakfast. Do not crush, chew, or split. 90 tablet 0 fluticasone-salmeterol (Advair) 230-21 MCG/ACT inhaler Inhale 2 puffs in the morning and at bedtime. Rinse mouth with water after use to reduce aftertaste and incidence of candidiasis. Do not swallow. 12 g 11 furosemide (Lasix) 20 MG tablet Take 20 mg by mouth Once per day. ipratropium-albuterol (Duo-Neb) 0.5-2.5 mg/3 mL nebulizer solution USE 3 ML VIA NEBULIZER EVERY 6 HOURS NEEDED FOR WHEEZING 180 mL 2 Nebulizers (Vios Aerosol Delivery System) [facility] USE DIRECTED. OXcarbazepine (Trileptal) 300 MG tablet [...] NEEDED FOR SLEEP No current facility-administered medications on file prior to visit. Jaki López, am serving as a scribe to document services personally performed by Dr. Marisa Livingston, based on the patient's response to questions by provider and provider's statements to me. documented in this encounter Miscellaneous Notes * Assessment & Plan Note - Jaki Ortez MA - 07/14/2024 10:58 AM EST Associated Problem(s): Obesity due to excess calories without serious comorbidity Discussed re weight reduction options including exercise, life style modifications, diet. Recommended to decrease soda and sugary beverage consumption, increase protein intake with meals (at least 1 portion of protein with each meal) to assist with satiety, increase dietary fiber Recommended at least 150 min/week of moderate intensity exercise. She agreed to referral to dietitian May need pharmacological intervention * Assessment & Plan Note - Jaki Ortez MA - 07/14/2024 10:57 AM EST Associated Problem(s): Moderate persistent asthma without complication Uncontrolled, worsening s/p Influenza. Chronic exposure to environmental allergens and extreme temperatures. Continue close FU with Metal Reed Tuner. Continue Advair plus Duo Neb, awaiting pa for Fasenra. Will consider allergy testing. * Assessment & Plan Note - Jaki Ortez MA - 07/14/2024 10:53 AM EST Associated Problem(s): Cardiac enlargement Patient probably has Cor Pulmonale or Pulmonary HTN, FU echo results Cardiology referral pending Continue Lasix for now and check BMP prior to next visit. Advised regarding weight reduction and optimal control of asthma. * Assessment & Plan Note - Jaki Ortez MA - 07/14/2024 10:51 AM EST Associated Problem(s): Menorrhagia with regular cycle Persistent, most probable cause of anemia. I will refer to Mobile Lounge Driver Or Operator at [facility] for treatment that may include IUD for one year as patient wants toget . She agreed to hormonal treatment if needed and delay until medical conditions are more stable. documented in this encounter Plan of Treatment Upcoming Encounters Date Type Department Care Team (Late st Contact Info) Description 08/06/2024 11:00 AM EDT Office Visit [facility] CHC ADULT DENTAL [address] [place], [place] [phone] Berlin Hagen, DMD [address] [place] [address] 08/06/2024 3:00 PM EDT Clinical Support [facility] DIABETES/NUTRITION [address] [place] [address] Mandi Pinedo, RD [address] [place] [address] 09/22/2024 11:30 AM EDT Telemedicine [facility] MEDICINE [address] [place] [address] Marisa Livingston MD [address] [place] [address] Scheduled Orders Name Type Priority Associated Diagnoses Orde r Schedule T-SPOT??.TB Lab Routine Moderate persistent asthma without complication Expected: 07/14/2024 (Approximate), Expires: 07/14/2025 Basic Metabolic Panel Lab Routine Cardiac enlargement Expected: 07/14/2024 (Approximate), Expires: 07/14/2025 Scheduled Referrals Name Type Priority Associated Diagnoses Orde r Schedule Referral to Gynecology Outpatient Referral Routine Menorrhagia with regular cycle Expected: 07/14/2024 (Approximate), Expires: 07/14/2025 Referral to Nutrition Therapy Outpatient Referral Routine Obesity due to excess calories without serious comorbidity, unspecified class Expected: 07/14/2024 (Approximate), Expires: 07/14/2025 documented as of this encounter Visit Diagnoses Diagnosis Moderate persistent asthma without complication- Primary Cardiac enlargement Cardiomegaly Menorrhagia with regular cycle Obesity due to excess calories without serious comorbidity, unspecified class documented in this encounter Additional Health Concerns Assessment Noted Time PHQ-9 Depression Total Score: 17 025 9:47 AM EST documented as of this encounter Care Teams Curtain Roller Assembler Relationship Specialty Start Date End Date Marisa Livingston MD [address] [place] [address] PCP - General Family Medicine 03/12/19 Perez Vergara RN [address] [place] [address] Help Desk AssociatePeritoneal Dialysis Registered Nurse 06/30/24 documented as of this encounter
--- OUTSIDE RECORDS SUMMARY | 2024-07-16 11:10 | XMS_ITS | Encounter Summary ---
Author Organization [employer] Address 75 [facility] 7 [place] [address] Care Team Providers Care Freelance Recruiter Name Role Phone Marisa Livingston MD Primary Care Provider + Perez Vergara RN Unavailable [phone] Reason for Visit * Reason Onset Date Comments no show 07/02/2024 Encounter Details Date Type Department Care Team (Late st Contact Info) Description 07/02/2024 Telephone [facility] MEDICINE [address] [place] [address] Marisa Livingston MD [address] [place] [address] no show Social History Tobacco Use Types Packs/Day Years [...] encounter Miscellaneous Notes * Telephone Encounter - Deanna Pineda - 07/02/2024 2:55 PM EST Pt no showed to follow up apt with pcp on 07/02. No show letter mailed to pt. documented in this encounter Plan of Treatment Upcoming Encounters Date Type Department Care Team (Late st Contact Info) Description 08/06/2024 11:00 AM EDT Office Visit [facility] CHC ADULT DENTAL [address] [place] [address] Berlin Hagen, BERNIE [address] [place] [address] 08/06/2024 3:00 PM EDT Clinical Support [facility] DIABETES/NUTRITION [address] [place] [address] [place] [address] 09/22/2024 11:30 AM EDT Telemedicine [facility] MEDICINE [address] [place] [address] Marisa Livingston MD [address] [place] [address] documented as of this encounter Visit Diagnoses Not on filedocumented in this encounter Additional Health Concerns Assessment Noted Time PHQ-9 Depression Total Score: 17 024 9:31 AM EST documented as of this encounter Care Teams Freelance Recruiter Relationship Specialty Start Date End Date Marisa Livingston MD [address] [place] [address] PCP - General Family Medicine 03/12/19 Perez Vergara RN [address] [place] [address] Tree Tapping LaborerHog Ribber 06/30/24 documented as of this encounter
--- OUTSIDE RECORDS SUMMARY | 2024-07-16 11:10 | XMS_ITS | Encounter Summary ---
Author Organization [employer] Address [address] [place] [address] 7 [place] [address] Care Team Providers Care Demonstrator Electric Gas Appliances Name Role Phone Marisa Livingston MD Primary Care Provider + Perez Vergara RN Unavailable [phone] Encounter Details Date Type Department Care Team (Latest Contact Info) Description 02/27/2022 Abstract [facility] CONVERSIONS Dental, Provider, DDS Social History [...] Upcoming Encounters Date Type Department Care Team ( st Contact Info) Description 08/06/2024 11:00 AM EDT Office Visit [facility] CHC ADULT DENTAL [address] [place] [address] Berlin Hagen, DMD [address] [place] [address] 08/06/2024 3:00 PM EDT Clinical Support [facility] DIABETES/NUTRITION [address] [place] [address] Mandi Pinedo, RD [address] [place] [address] 09/22/2024 11:30 AM EDT Telemedicine [facility] MEDICINE [address] [place] [address] Marisa Livingston MD [address] [place] [address] documented as of this encounter Visit Diagnoses Not on filedocumented in this encounter Care Teams Demonstrator Electric Gas Appliances Relationship Specialty Start Date End Date Marisa Livingston MD [address] [place] [address] PCP - General Family Medicine 03/12/19 Perez Vergara RN [address] [place] [address] Washtub Worker HelperCooler Deliverer 06/30/24 documented as of this encounter
== END ==
LOC: HO.CARD 10:04
PROVIDERS: Visit Provider Internal Medicine Pulmonary Disease
DX: R06.09 Other forms of dyspnea (principal)
CPT/HCPCS: 93306

== ENCOUNTER → 2024-07-16 10:06 | Outpatient (BNV) | payer MEDICAID, SELFPAY | PROVIDERS: Visit Provider Internal Medicine Cardiovascular Disease | DX: R06.09 Other forms of dyspnea (principal) | CPT/HCPCS: 93306 ==

== ENCOUNTER 2024-07-22 10:43 | Outpatient (REF) | payer MEDICAID, SELFPAY ==
[2024-07-22 12:19] LABS: Anion Gap 9 (12-20); Blood Urea Nitrogen 8 mg/dL (9-16); Calcium 9.5 mg/dL (8.4-10.2); Carbon Dioxide 25 mmol/L (22-29); Chloride 109 mmol/L (96-108); Estimated Glomerular Filt Rate > 60; Glucose Random 91 mg/dL (60-115); Potassium 3.8 mmol/L (3.3-5.1); Sodium 139 mmol/L (135-145)
--- OUTSIDE RECORDS SUMMARY | 2024-07-22 12:56 | XMS_ITS | Encounter Summary ---
Author Organization [employer] Address 75 [facility] 7 [place] [address] Care Team Providers Care Outer Diameter Grinder Name Role Phone Marisa Livingston MD Primary Care Provider + Perez Vergara RN Unavailable Reason for Visit * Reason Comments Med Refill Encounter Details Date Type Department Care Team (Late st Contact Info) Description 03/04/2024 Refill [facility] MEDICINE [address] [place] [address] Marsia Livingston MD [address] [place] [address] Social History Tobacco Use Types Packs/Day Years [...] Description 08/06/2024 11:00 AM EDT Office Visit [facility] CHC ADULT DENTAL [address] [place] [address] Berlin Hagen, DMD [address] [place] [address] 08/06/2024 3:00 PM EDT Clinical Support [facility] DIABETES/NUTRITION [address] [place] [address] Mandi Pinedo, RD 230 [place] [address] 09/22/2024 11:30 AM EDT Telemedicine [facility] MEDICINE [address] [place] [address] Marisa Livingston MD [address] [place] [phone] documented as of this encounter Visit Diagnoses Not on filedocumented in this encounter Additional Health Concerns Assessment Noted Time PHQ-9 Depression Total Score: 17 024 9:31 AM EST documented as of this encounter Care Teams Outer Diameter Grinder Relationship Specialty Start Date End Date Marisa Livingston MD [address] [place] [phone] PCP - General Family Medicine 03/12/19 Perez Vergara RN [address] [place] [address] IRAJ Black [id number] Advertising Display RotatorVegetable Worker 06/30/24 documented as of this encounter
--- OUTSIDE RECORDS SUMMARY | 2024-07-22 12:56 | XMS_ITS | Encounter Summary ---
Author Organization [employer] Address 75 [facility] 7 [place] [address] Care Team Providers Care Central Office Trouble Shooter Name Role Phone Marisa Livingston MD Primary Care Provider + Perez Vergara RN Unavailable [phone] Reason for Visit * Reason Comments Med Refill Encounter Details Date Type Department Care Team (Late st Contact Info) Description 05/27/2024 Refill [facility] MEDICINE [address] [place] [address] Marisa Livingston MD [address] [place] [address] Social History Tobacco Use Types Packs/Day Years [...] Description 08/06/2024 11:00 AM EDT Office Visit [facility] CHC ADULT DENTAL [address] [place] [address] Berlin Hagen, DMD [address] [place] [address] 08/06/2024 3:00 PM EDT Clinical Support [facility] DIABETES/NUTRITION [address] [place] [address] Mandi Pinedo, RD 230 [place] [address] 09/22/2024 11:30 AM EDT Telemedicine [facility] MEDICINE [address] [place] [address] Marisa Livingston MD [address] [place] [address] documented as of this encounter Visit Diagnoses Not on filedocumented in this encounter Additional Health Concerns Assessment Noted Time PHQ-9 Depression Total Score: 17 024 9:31 AM EST documented as of this encounter Care Teams Central Office Trouble Shooter Relationship Specialty Start Date End Date Marisa Livingston MD [address] [place] [address] PCP - General Family Medicine 03/12/19 Perez Vergara RN [address] [place] [address] IRAJ Black [id number] Tool TenderAcademic Coach 06/30/24 documented as of this encounter
--- OUTSIDE RECORDS SUMMARY | 2024-07-22 12:56 | XMS_ITS | Encounter Summary ---
Author Organization [employer] Address [address] [place] [address] [address] Care Team Providers Care Telecine Operator Name Role Phone Marisa Livingston MD Primary Care Provider + Perez Vergara RN Unavailable [phone] Reason for Referral * Consultation (Routine) - Authorized Specialty Diagnoses / Procedures Referred By Contdaniela t Referred To Contact Hematology and Oncology Diagnoses Chronic anemia Jaki Cruz MD [address] [place] [address] Phone: tel: fax: [address] Phone: tel: fax: Referral ID Status Reason Start Date Expiration Date Visits Requested Visits Authorized [id number] Authorized Specialty Services Required 06/17/2024 06/17/2025 6 6 Encounter Details Date Type Department Care Team (Late st Contact Info) Description 06/17/2024 Orders Only [facility] [address] [place] [address] [phone] Jaki Cruz MD [address] [place] [address] [phone] Chronic anemia (Primary Dx) Social History Tobacco [...] t he electric, gas, oil or water [employer] threatened to shut off services in your [...] Description 08/06/2024 11:00 AM EDT Office Visit [facility] CHC ADULT DENTAL [address] [place] [address] Berlin Hagen DMD [address] [place] [address] 08/06/2024 3:00 PM EDT Clinical Support [facility] DIABETES/NUTRITION [address] [place] [address] [place] [address] 09/22/2024 11:30 AM EDT Telemedicine [facility] MEDICINE [address] [place] [address] Marisa Livingston MD [address] [place] [phone] Pending Results Name Type Priority Associated Diagnoses Date /Time Referral to Hematology / Oncology Outpatient Referral Routine Chronic anemia 06/17/2024 Scheduled Referrals Name Type Priority Associated Diagnoses Order Schedule Referral to Hematology / Oncology Outpatient Referral Routine Chronic anemia Expected: 06/17/2024 (Approximate), Expires: 06/17/2025 documented as of this encounter Visit Diagnoses Diagnosis Chronic anemia- Primary Unspecified anemia documented in this encounter Additional Health Concerns Assessment Noted Time PHQ-9 Depression Total Score: 17 024 9:31 AM EST documented as of this encounter Care Teams Telecine Operator Relationship Specialty Start Date End Date Marisa Livingston MD [address] [place] [address] PCP - General Family Medicine 03/12/19 Perez Vergara RN [address] [place] [phone] Anti Air Warfare Operations OfficerPediatric Anesthesiologist 06/30/24 documented as of this encounter
--- OUTSIDE RECORDS SUMMARY | 2024-07-22 12:56 | XMS_ITS | Encounter Summary ---
Author Organization [employer] Address [address] [place] [address] 7 [place] [address] Care Team Providers Care Negative Developer Name Role Phone Marisa Livingston MD Primary Care Provider + Perez Vergara RN Unavailable [phone] Reason for Visit * Reason Comments Care Coordination C3 [facility] Stacey soliman telephone call outreach Encounter Details Date Type Department Care Team (Latest Contact Info) Description 07/14/2024 Patient Outreach [facility] MEDICINE [address] [place] [address] Marisa Livingston MD [address] [place] [address] Care Coordination ([facility] telephone call outreach) Social History Tobacco [...] outbound call to patient introducing herself from [facility] CM Department, in regards to offering CM-CHW program services. Patient's name and was confirmed. Patient agrees to participate in CHW- program for SDOH needs. SDOH screening completed: 07/14/24, CHW spoke to patient she is backed up with electricity and water bill, CHW recommended for her to apply [facility], she did apply for VOC, but she is still waiting to see if she is approved. CHW reinforced direct contact information for any additional questions or concerns and extended clinic hours on Mondays and Wednesdays, and Walk-In Urgent Care Located in [facility] of [facility].Patient provided with after-hours line for [facility], , which offer night time triage serviceand option to transfer to hydrogen plant operations manager provider if needed. Patient verbalizes understanding, and able torepeat back to sql report writer. documented in this encounter Plan of Treatment Upcoming Encounters Date Type Department Care Team (Late st Contact Info) Description 08/06/2024 11:00 AM EDT Office Visit [facility] CHC ADULT DENTAL [address] [facility] [place] [address] Berlin Hagen, DMD [address] [place] [address] 08/06/2024 3:00 PM EDT Clinical Support [facility] DIABETES/NUTRITION [address] [place] [address] [place] [address] 09/22/2024 11:30 AM EDT Telemedicine [facility] MEDICINE [address] [place] [address] Marisa Livingston MD [address] [place] [address] documented as of this encounter Visit Diagnoses Not on filedocumented in this encounter Additional Health Concerns Assessment Noted Time PHQ-9 Depression Total Score: 17 025 9:47 AM EST documented as of this encounter Care Teams Negative Developer Relationship Specialty Start Date End Date Marisa Livingston MD [address] [place] [address] PCP - General Family Medicine 03/12/19 Perez Vergara RN [address] [place] [address] Career Services CoordinatorPattern And Chain Maker 06/30/24 documented as of this encounter
--- OUTSIDE RECORDS SUMMARY | 2024-07-22 12:56 | XMS_ITS | Encounter Summary ---
Author Organization [employer] Address [address] [place] [address] [address] Care Team Providers Care Inserting Machine Operator Name Role Phone Marisa Livingston MD Primary Care Provider + Perez Vergara RN Unavailable [phone] Reason for Visit * Reason Onset Date Comments Care Management 06/30/2024 C3CM- initial as sessment/enrollment Encounter Details Date Type Department Care Team ([facility] st Contact Info) Description 06/30/2024 Telephone [facility] MEDICINE [address] [place] [address] Marisa Livingston MD [address] [place] [address] Care Management (C3- initial assessment/enrollment) Social History [...] report being followed by behavioral health with [facility]. She is established by a therapist and psychiatrist which she sees every 2 weeks. Pt reports doing well emotionally today, denies any SI/HI. She states she is able to contact her therapist as needed and confirms having crisis # to use as needed. Patient being seen by a neurologist about 1-2 years ago for her migraines. Patient reports being seen at [facility] on 06/18/24 for f/u on lab [...] office. CM noted no pending appointment in [facility]. Patient is agreeable for CM to call these offices to schedule follow up appointments. Patient denies any vision or dental concerns. Patient uses glasses and last eye exam was last year here at [facility]. Patient reports last dental exam here at [facility] about 5 months ago. Patient is mostly independent with ADL's. She states that at time she would need help with cleaning due to extreme lower back pain.Patient denies use or need of any assistive devices. Per pt, was prescribed a nebulizer machine in the past that she never picked up. Patient states that prescription has but agreed to consult with claims correspondence clerk tomorrow. She report gaining weight due to [...] understanding, and able to repeat back to insurance writer. A follow up call will be placed within 10 days, patient agrees with plan. documented in this encounter Plan of Treatment Upcoming Encounters Date Type Department Care Team (Late st Contact Info) Description 08/06/2024 11:00 AM EDT Office Visit [facility] CHC ADULT DENTAL [address] [place], [place] [id number] Berlin Hagen, DMD [address] [place] [address] 08/06/2024 3:00 PM EDT Clinical Support [facility] DIABETES/NUTRITION [address] [place] [address] [place] [address] 09/22/2024 11:30 AM EDT Telemedicine [facility] MEDICINE [address] [place] [address] Marisa Livingston MD [address] [place] [address] documented as of this encounter Visit Diagnoses Not on filedocumented in this encounter Additional Health Concerns Assessment Noted Time PHQ-9 Depression Total Score: 17 024 9:31 AM EST documented as of this encounter Care Teams Inserting Machine Operator Relationship Specialty Start Date End Date Marisa Livingston MD [address] [place] [address] PCP - General Family Medicine 03/12/19 Perez Vergara RN [address] [place] [address] Central Sterile Supply TechnicianInside Sales Consultant 06/30/24 documented as of this encounter
--- OUTSIDE RECORDS SUMMARY | 2024-07-22 12:56 | XMS_ITS | Clinical Summary ---
Author Organization [employer] Address [address] [facility] [address] [place] [address] Care Team Providers Care Family Advocate Name Role Phone Marisa Livingston MD Primary Care Provider + Perez Vergara RN Unavailable Allergies Active Allergy Reactions Criticality Noted Date [...] Active Nebulizers (Vios Aerosol Delivery System) [facility] [place] DIRECTED. 3 Active Fasenra Pen 30 [...] 4 Active ergocalciferol (Vitamin D2) 1.25 MG (97267 UT) capsule TAKE 1 CAPSULE(1.25 MG) BY [...] of pulmonary embolus or acute aortic syndrome. Zkoe-mq-tghtzrgi cardiac enlargement with predominantly biventricular dilatation. Enlarged [...] of pulmonary embolus or acute aortic syndrome. Gbgf-ui-pskenfsp cardiac enlargement with predominantly biventricular dilatation. Enlarged main pulmonary artery suggesting pulmonary arterial hypertension. -will refer to cardiology Moderate persistent asthma without complication 06/17/2024 Assessment & Plan (07/14/2024 10:59 AM EST): Uncontrolled, worsening s/p Influenza. Chronic exposure to environmental allergens and extreme temperatures. Continue close FU with Second Worker. Continue Advair plus Duo Neb, awaiting pa for Fasenra. Will consider allergy testing. Menorrhagia with regular cycle 04/16/2023 Assessment & Plan (07/14/2024 10:51 AM EST): Persistent, most probable cause of anemia. I will refer to Aircraft Delivery Checker at [facility] for treatment that may include [...] exercise, life style modifications, diet, referral to it technical specialist. Discussed re lower calorie intake, increase dietary fiber Assessment & Plan (11/22/2022 1:34 PM EDT): Discussed re weight reduction options including exercise, life style modifications, diet, referral to it technical specialist. Discussed re lower calorie intake, increase [...] -Uncontrolled. -Restart Advair Diskus -Follow up with sports team marketing intern for immunotherapy. -Counseled on protocol for FMLA [...] gave today NBZ machine written prescription to [facility] nurse staff -Alarm signs and sx [...] anti-muscarinic inhaler as Trelegy -Referred today to style advisor for uncontrolled asthma Assessment & Plan (07/03/2022 [...] exercise, life style modifications, diet, referral to it technical specialist. Discussed re lower calorie intake, increase [...] at home PAP smear: Overdue, refer to silk opener will need further eval for DUB Adult [...] Team Description 07/14/2024 10:00 AM EST Telemedicine [address] [address] Marisa Livingston MD Moderate persistent asthma without complication (Primary Dx); Cardiac enlargement; Menorrhagia with regular cycle; Obesity due to excess calories without serious comorbidity, unspecified class 07/14/2024 Patient Outreach [address] [address] Marias Livingston MD Care Coordination (C3 -[facility] Stacey Lloyd telephone call outreach) 07/14/[address] [address] Marisa Livingston MD Appointment Request 07/14/[address] [address] Marisa Livingston MD Appointment Confirmation 07/14/[address] [address] Marisa Livingston MD Care Management ([facility]- f/u call) 07/14/2024 Travel 07/09/2024 Telephone [facility] MEDICINE [address] [place] [phone] Marisa Livingston MD Chart prep 07/09/2024 Telephone [facility] MEDICINE [address] [place] [phone] Marisa Livingston MD Appointment Request 07/09/2024 Telephone [facility] MEDICINE [address] [place] [phone] Marisa Livingston MD Appointment Request 07/07/2024 Telephone [facility] MEDICINE [address] [place] [phone] Marisa Livingston MD Chart prep 07/02/2024 Telephone [facility] MEDICINE [address] [place] [phone] Marisa Livingston MD no show 07/01/2024 Telephone [facility] MEDICINE [address] [place] [address] Marisa Livingston MD Chart prep 06/30/2024 Telephone [facility] MEDICINE [address] [place] [phone] Marisa Livingston MD Care Management ([facility]- initial assessment/enrollmen t) 06/29/2024 Patient Outreach [facility] MEDICINE [address] [place] [phone] Marisa Livingston MD Care Coordination ([facility] Lloyd telephone call outreach) 06/29/2024 Patient Outreach [facility] MEDICINE [address] [place] [phone] Marisa Livingston MD 06/21/2024 Patient Outreach [facility] MEDICINE [address] [place] [phone] Marisa Livingston MD Care Coordination ([facility] Lloyd telephone call outreach) 06/21/2024 Telephone [facility] MEDICINE [address] [place] [phone] Jaki Cruz MD 06/21/[address] [address] Perez Vergara, CHAPITO Care Management (C3- chart review) 06/18/2024 Orders Only GENERIC EXTERNAL DATA DEPARTMENT Provider, Generic External Data 06/17/2024 3:20 PM EST Office Visit [facility] WALK-IN [address] [address] Jaki Cruz MD Dyspnea on exertion (Primary Dx); Moderate persistent asthma without complication; Cardiac enlargement 06/17/2024 Telephone [facility] WALK-IN [address] [address] Jaki Cruz MD 06/17/2024 Telephone [facility]-IN [address] [address] Bettie Garay RN ED EXPECT 06/17/2024 Orders Only [facility] [address] [address] Jaki Cruz MD Chronic anemia (Primary Dx) 06/17/2024 Telephone [facility] WALK-IN [address] [address] Amirah Pugh, [place] Nurse Triage (SOB) 06/10/[address] [address] Marisa Livingston MD Nurse Triage 06/07/[address] [address] Marisa Livingston MD 06/04/[address] [address] Marisa Livingston MD Nurse Triage 06/03/2024 Orders Only [facility] CHC ADULT DENTAL [address] [place] [address] [place] Hagen, BERNIE 05/27/[address] [address] Marisa Livingston MD 05/26/2024 4:00 PM EST Office Visit [facility] WALK-IN [address] [address] Joann Sandoval MD Acute severe exacerbation of asthma (Primary Dx) 05/26/2024 Orders Only [facility] External Provider, [facility] 05/26/2024 Telephone [facility] MEDICINE [address] [place] [address] Marisa Livingston MD Nurse Triage 05/20/2024 Telephone [facility] MEDICINE [address] [place] [address] Marisa Livingston MD July recall from Last [...] Description 08/06/2024 11:00 AM EDT Office Visit [facility] CHC ADULT DENTAL [address] [place] [address] [place] Hagen, DMD [address] [place] [address] 08/06/2024 3:00 PM EDT Clinical Support [facility] DIABETES/NUTRITION [address] [place] [address] Mandi Pinedo, MEAGAN [address] [place] [address] 09/22/2024 11:30 AM EDT Telemedicine [facility] MEDICINE [address] [place] [address] Marisa Livingston MD [address] [place] [address] Health Maintenance Due Date Last Done Comments [...] Procedure Name Priority Date/Time Associated Diagnosis Comments BASIC METABOLIC PANEL Routine 07/22/2024 10:48 AM EST Cardiac enlargement HIGH SENSITIVITY TROPONIN I Routine 06/18/2024 4:56 PM EST B TYPE NATRIURETIC PEPTIDE (BNP) Routine 06/18/2024 4:56 PM EST CTA CHEST PE PROTOCAL Routine 06/18/2024 3:34 PM EST XR CHEST 2 VIEWS Routine 06/18/2024 11:0 6 AM EST HCG, TOTAL, QN Routine 06/18/2024 10:52 AM EST D DIMER HIGH SENSITIVITY Routine 06/18/2024 10:52 AM EST COVID-19 ID NOW ([employer]) Routine 06/18/2024 10:52 AM EST BASIC METABOLIC [...] Recently Relevant to Health Maintenance Results * (ABNORMAL) Basic Metabolic Panel (07/22/2024 10:48 AM EST) Only the most recent of2 resultswithin the time period is included. Sodium 139 135 - 145 mmol/L [facility] Potassium 3.8 3.3 - 5.1 mmol/L [facility] Chloride 109(H) 96 - 108 mmol/L [facility] Carbon Dioxide 25 22 - 29 mmol/L [facility] Anion Gap 9(L) 12 - 20 [facility] Urea Nitrogen (BUN) 8(L) 9 - 16 mg/dL [facility] Creatinine, Serum 0.58 0.5 - 1.4 mg/dL [facility] Estimated Glomerular Filt Rate >60 [facility] Comment:Chronic Kidney Disea se: Estimated GFR < 60 mL/min/1.75f7Rsumcq Kidney Disease: Estimated GFR < 15 mL/min/1.73m2 Glucose 91 60 - 115 mg/dL [facility] Calcium 9.5 8.4 - 10.2 mg/dL [facility] Blood Venous blood specimen / Unknown 07/22/2024 10:48 AM EST 07/22/2024 11:51 AM EST us Marisa Livingston MD LAB BLOOD ORDERABLES Fin al Result [facility] [address] [place] [phone] * High Sensitivity Troponin I (06/18/2024 4:56 PM EST) TROPONIN I HIGH SENSITIVITY <2.7 <3.5 - 17.0 ng/L [facility] Comment:The Davis high sens itivity Troponin-I results should beused in conjunction with other diagnostic information suchas ECG, clinical observations and information, and patientsymptoms to aid in the diagnosis of MO. 06/18/2024 4:56 PM EST 06/18/2024 4:59 PM EST us Generic External Data Provider LAB BLOOD ORDERAB LES Final Result Performing Organization Address [facility] de Phone Number [facility] [address] [place] [phone] [phone] * B Type Natriuretic Peptide (BNP) (06/18/2024 4:56 PM EST) B Type Natriuretic Peptide 11 <100 pg/mL [facility] Comment:For those patients w ho are being treated with Natrecor(nesiritide, recombinant BNP), BNP testing should beperformed at least two hours post treatment in order toensure that only endogenous levels of BNP are detected. 06/18/2024 4:56 PM EST 06/18/2024 4:59 PM EST us Generic External Data Provider LAB BLOOD ORDERAB LES Final Result Performing Organization Address [facility] de Phone Number [facility] [address] [place] [address] [phone] * CTA Chest PE Protocal (06/18/2024 3:34 PM EST) Anatomical Region Laterality Modality Body, Chest Computed Tomogra phy 06/18/2024 3:34 PM EST Narrative 06/18/2024 4:43 PM EST ? [facility] ?[address] ?[place] [address] ? CT Scan Report ? Signed ? Patient: Cleo Rock ?MR#: ?? [id number] ? : 1990 ?Acct:[id number] ? Age/Sex: 33 / F ?ADM Date: 06/18/ ? Loc: HO.ED ? Attending Dr: ? Ordering Physician: Michela Rouse ?? Date of Service: 06/18/24 ?? Procedure(s): CT angio chest PE protocol ?? Accession Number(s): [id number] ? cc: Marisa Livingston MD; Michela Rouse ? Report Number: ?? [id number]: Total DLP = ??266.00 mGy-cm ?? EXAMINATION: [...] embolus or acute aortic syndrome. ?? 2. Cfxm-mk-dotnolot cardiac enlargement with predominantly ?? biventricular dilatation. [...] DD/ 1534 ? TD/TT: 06/18/24 1545 ? Handle Lathe Operator: ? 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 Donotuseinterpreter, Image - 06/18/[address] [place] [address] [address] Scan Report Signed Patient: Cleo Rock JMR#: [id number] : 1990Acct:[id number] Age/Sex: 33 / FADM Date: 06/18/24 Loc: .ED Attending Dr: Ordering Physician: Michela Rouse Date of Service: 06/18/24 Procedure(s): CT angio chest PE protocol Accession Number(s): [id number] cc: Marisa Livingston MD; Michela Rouse Report Number: [id number]: Total DLP = 266.00 mGy-cm EXAMINATION: CT [...] pulmonary embolus or acute aortic syndrome. 2. Bdvf-vn-ghvjbmca cardiac enlargement with predominantly biventricular dilatation. 3. Enlarged main pulmonary artery suggesting pulmonary arterial hypertension. 4. Mild mosaic attenuation of the lung parenchyma, most likely secondary to partial expiratory phase. No focal pneumonia or abnormal opacities otherwise. No effusions. 5. Cholelithiasis. Electronically signed by: Diego Montana MD 06/18/2024 04:27 PM EST Dictated By: Diego Montana MD Signed By: <Electronically signed by Diego Montana MD in OV> 06/18/24 1627 DD/ 1534 TD/TT: 06/18/24 1545 Handle Lathe Operator: [facility] External Provider IMG CT PROCEDURES Final Result * XR Chest 2 Views (06/18/2024 11:06 AM EST) Only the most recent of3 resultswithin the time period is included. Anatomical Region Laterality Modality Chest Radiographic Angelita ging 06/18/2024 11:0 6 AM EST Narrative 06/18/2024 11:19 AM EST ? [facility] ?[address] ?[place] [address] ?XRay Report ? Signed ? Patient: Smith Dino,Cleo J ?MR#: ?? [id number] ? : 1990 ?Acct:[id number] ? Age/Sex: 33 / F ?ADM Date: 06/18/24 ? Loc: HO.ED ? Attending Dr: ? Ordering Physician: Bay Christina ?? Date of Service: 06/18/24 ?? Procedure(s): XR chest 2V ?? Accession Number(s): [id number] ? cc: Marisa Livingston MD; Bay Christina [...] DD/ 1106 ? TD/TT: 06/18/24 1113 ? Handle Lathe Operator: ? 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 Donsangitajanellelliottter, Image - 06/18/[address] [address] XRay Report Signed Patient: Smith Cleo Sun#: [id number] : 1990Acct:[id number] Age/Sex: 33 / FADM Date: 06/18/24 Loc: HO.ED Attending Dr: Ordering Physician: Bay Christina Date of Service: 06/18/24 Procedure(s): XR chest 2V Accession Number(s): [id number] cc: Marisa Livingston MD; Bay Christina EXAMINATION: [...] 06/18/24 1116 DD/ 1106 TD/TT: 06/18/24 1113 Handle Lathe Operator: [facility] External Provider IMG XR PROCEDURES Final Result * Influenza A B2 ID NOW (Davis) (06/18/2024 10:52 AM EST) IDNOW SERIAL# [id number] [facility] Influenza A Negative Negative [facility] Influenza B2 Negative Negative [facility] Influenza A B2 Note See Note [facility] Comment:The Davis ID NOW In [...] LAB MICROBIOLOGY - GENERAL ORDERABLES Final Result [facility] [address] [place] [address] [phone] * D Dimer High Sensitivity (06/18/2024 10:52 AM EST) Only the most recent of2 resultswithin the time period is included. Pathologist [facility] D Dimer High Sensitivity 232 NG/ML [facility] Comment:D-DIMER HS REFERENCE RANGENote: Our [...] Provider LAB BLOOD ORDERAB LES Final Result [facility] [address] [place] [phone] * COVID-19 ID NOW (DAVIS) (06/18/2024 10:52 AM EST) Pathologist [facility] IDNOW SERIAL# [id number] [facility] COVID-19 TEST Negative Negative [facility] COVID-19 NOTE See Note [facility] Comment: Results are for the identification of SARS-CoV2 RNA. TheSARS-CoV2 RNA is generally detectable in respiratory samplesduring the acute phase of infection. Positive results areindicative of the presence of SARS-CoV-2 RNA; clinicalcorrelation with patient history and other diagnosticinformation is necessary to determine patient infectionstatus. Positive results do not rule out bacterial infectionor co- infection with other viruses.Testing facilities within the [facility] and itsterritories are required to [...] use by authorized laboratories.Testing performed on the [employer] ID NOW utilizing NAAT. 06/18/2024 10:5 2 AM EST 06/18/2024 10:56 AM EST us Generic External Data Provider LAB MOLECULAR DELMI GNOSTICS ORDERABLES Final Result [facility] [address] [place] [phone] * (ABNORMAL) CBC auto differential (06/18/2024 10:52 AM EST) Only the most recent of2 resultswithin the time period is included. White Blood Count 6.7 4.8 - 10.8 X10*3/uL [facility] Red Blood Count 4.66 4.20 - 5.50 X10*6/uL [facility] Hemoglobin 9.1(L) 12.0 - 16.0 g/dl [facility] Hematocrit 31.5(L) 37.0 - 47.0 % [facility] Mean Corpuscular Volume 67.6(L) 80.0 - 98.0 fL [facility] Mean Corpuscular Hemoglobin 19.5(L) 27.0 - 33.0 pg [facility] Mean Corpuscular HGB Conc 28.9(L) 31.0 - 35.0 g/dl [facility] Red Cell Distribution Width 19.1(H) 11.0 - 16.0 % [facility] Platelet Count 334 160 - 400 X10*3/uL [facility] Mean Platelet Volume 9.0(L) 9.4 - 12.3 fL [facility] Neutrophils Percent Auto 63.8 45 - 73 % [facility] Imm Gran Pct Auto 0.1 0.0 - 0.4 % [facility] Lymphocytes Percent Auto 24.5 20 - 40 % [facility] Monocytes Percent Auto 6.1 2 - 11 % [facility] Eosinophils Percent Auto 5.2(H) 0 - 4 % [facility] Basophils Percent Auto 0.3 0 - 2 % [facility] NRBC Pct Auto 0.0 0.0 - 0.2 /100WBC [facility] Neutrophils Absolute Auto 4.3 2.0 - 8.3 x10*3/uL [facility] Imm Gran Abs Auto 0.01 0.00 - 0.03 X10*3/uL [facility] Lymphocytes Absolute Auto 1.6 1.2 - 4.9 X10*3/uL [facility] Monocytes Absolute Auto 0.4 0.1 - 1.2 X10*3/uL [facility] Eosinophils Absolute Auto 0.4 0.0 - 0.4 X10*3/uL [facility] Basophils Absolute Auto 0.0 0.0 - 0.2 X10*3/uL [facility] NRBC Abs Auto 0.000 0.0 - 0.012 X10*3/uL [facility] 06/18/2024 10:5 2 AM EST 06/18/2024 10:56 AM EST us Generic External Data Provider LAB BLOOD ORDERAB LES Final Result Performing Organization Address City/State/[facility] Co de Phone Number [facility] [address] [place] [phone] * (ABNORMAL) Prothrombin Time-INR (06/18/2024 10:52 AM EST) Prothrombin Time 13.5(H) 10.9 - 12.4 SEC [facility] INTERNATIONAL NORM RATIO 1.2(H) 0.9 - 1.1 [facility] Comment:INTERNATIONAL NORMAL IZED RATIO (INR) [...] ORDERAB LES Final Result Performing Organization Address [facility] Co de Phone Number [facility] [address] [place] [phone] * hCG, Total, Quantitative (06/18/2024 10:52 AM EST) HCG Quantitative <2 mIU/mL [facility] Comment:Weeks post LMP Appro ximate hCG(Last Menstrual Period) Range (mIU/ml)3 - 4 weeks 9 - 1304 - 5 weeks 75 - 2,6005 - 6 weeks 850 - 20,8006 - 7 weeks 4000 - 100,2007 - 12 weeks 11,500 - 289,04608 - 16 weeks 18,300 - 137,87145 - 29 weeks (2nd trimester) 1,400 - 53,39523 - 41 weeks (3rd trimester) 940 - 60,000The Davis B- hCG assay is used for the early detection ofpregnancy; it cannot be used to diagnose any conditionunrelated to . If a B-hCG level is not supportedby the clinical evidence, results should be confirmed by analternative method (qualitative urine hCG, for example). 06/18/2024 10:5 2 AM EST 06/18/2024 10:56 AM EST [email or web address] External Data Provider LAB BLOOD ORDERAB LES Final Result Performing Organization Address [facility] Co de Phone Number [facility] [address] [place] [phone] * Pertussis Bordetella toxin (PT) Antibody (IgG), Immunoassay (06/17/2024 3:32 PM EST) Pathologist [facility] Pertussis Testing 2 IU/mL [facility] Comment: REFERENCE RANGE:: ? Age (years) [...] The indicated PT IgG reference ranges reflect ncu06ku percentile of antibody levels in sera from healthychildren and blood donors; thus, levels above the referencerange suggest recent infection or vaccination within thelast few months.This test was developed and its analytical performancecharacteristics have been determined by [employer].It has not been cleared or approved by FDA. This assay hasbeen validated pursuant to the CLIA regulations and isused for clinical purposes.For additional information, please refer tohttp://education.Episona/faq/IAC180.(This link is being provided for informational/educational purposes only.)THIS TEST WAS PERFORMED AT:[employer] [id number] CELINA COSTA ??[id number] HUSSEIN MD,PHD,MARISOL Blood Venous blood specimen / Unknown 06/17/2024 3:32 PM EST 06/17/2024 3:59 PM EST us Jaki Cruz MD LAB BLOOD ORDERABLES Final Result [facility] [address] [place] [phone] * C-reactive Protein (06/17/2024 3:32 PM EST) [facility] C Reactive Protein <0.10 < or = 0.50 mg/dL [facility] Blood Venous blood specimen / Unknown 06/17/2024 3:32 PM EST 06/17/2024 3:59 PM EST Jaki Cruz MD LAB BLOOD ORDERABLES Final Result Performing Organization Address [facility] de Phone Number [facility] [address] [place] [phone] * Influenza B (ID NOW Rapid Molecular) (06/17/2024 2:36 PM EST) [facility] Influenza B Negative Negative, Indeterminate [facility] Swab 06/17/2024 2:36 PM EST Jaki Cruz MD POINT OF CARE TEST ENTER/E DIT ORDERABLES Final Result Performing Organization Address [facility] Phone Number [facility] [address] [place] [phone] * Influenza A (ID NOW Rapid Molecular) (06/17/2024 2:36 PM EST) [facility] Influenza A Negative Negative, Indeterminate [facility] Swab 06/17/2024 2:36 PM EST Jaki Cruz MD POINT OF CARE TEST ENTER/E DIT ORDERABLES Final Result Performing Organization Address [facility] Phone Number [facility] [address] [place] [phone] * POCT rapid strep A manually resulted (06/17/2024 2:36 PM EST) [facility] Rapid Strep A Screen Negative Negative, None Detected Swab 06/17/2024 2:36 PM EST Jaki Cruz MD POINT OF CARE TEST ENTER/E DIT ORDERABLES Final Result * POCT Rapid Covid-19 BinaxNOW (06/17/2024 2:09 PM EST) Pathologist [facility] Rapid COVID Ag Negative Sage 06/17/2024 2:09 PM EST Jaki Cruz MD POINT OF CARE TEST ENTER/E DIT ORDERABLES Final Result * Strep A Nucleic Acid (05/26/2024 5:39 PM EST) [facility] IDNOW SERIAL# [id number] [facility] Strep A Nucleic Acid Negative Negative [facility] Comment:All test results mus t [...] LAB MICROBIOLOGY - GENERAL ORDERABLES Final Result [facility] [address] [place] [phone] * (ABNORMAL) SARS-CoV-2 RNA, Influenza A/B, and RSV RNA, Ql NAAT (05/26/2024 5:39 PM EST) [facility] Influenza A PCR POSITIVE(A) Negative [facility] Influenza B PCR NEGATIVE Negative [facility] Resp Syncy Virus RNA Qual PCR NEGATIVE Negative [facility] SARS COV2 PCR NEGATIVE Negative [facility] Comment:All test results mus t [...] use by authorized laboratories.Testing performed on the [employer] Gene[employer] utilizingreal-time RT-PCR.All SARS CoV2 and positive influenza A/B results arereported to [facility]. 05/26/2024 5:39 PM EST 05/26/2024 5:46 PM EST us Generic External Data Provider LAB MICROBIOLOGY - GENERAL ORDERABLES Final Result Performing Organization Address City/State/[facility] Co de Phone Number [facility] [address] [place] [phone] * Pap Smear (08/05/2023 3:15 PM EDT) 08/05/2023 3:15 PM EDT 08/07/2023 1:00 PM EDT Narrative [facility] - 08/18/2023 1:17 PM EDT ----- ------- Name: Cleo Rock ? Age/Sex: 32/F ? : 1990 Unit#: [id number] ?? Attend Dr: Amaris Salgado CNM ?Re08/05/23 ?Status: DEP REF ? Location: HO.LNP ?Disch: ? ----- ------- SPEC : [id number] ? RECD: 08/07/23-1300 ? STATUS: ??SOUT ? REQ NUM: [id number] ? MEAGAN: 08/05/23-1515 ? SUBM DR: Amaris Salgado CNM ? ENTERED: ??08/07/23-1418 ?SP TYPE: Pap Smr ?OTHR DR: Marisa [...] 66, 68) ?? HPV testing performed by [facility], [place], [place]. ??See reference laboratory ?? portion of the EMR for entire report. ?Clinical Information LMP: 07/17/23 Previous PAP test: 5/2/18, WNL ? Material Received ?? ThinPrep-Cervical Copies To: ?? Marisa Livingston MD ?? [address] ?? [place] [address] ? Amaris Salgado ?? [address] [facility] ?? [place] [address] ?? [phone] ----- ------- Signed (signature on file) IDANIA Hutchinson (ASCP) 08/18/23 1317 ? ----- ------- ? END OF REPORT ? us Generic External Data Provider LAB CYTOLOGY GILBERT UGARTE Final Result [facility] [address] [place] [address] [phone] * HIV Ab/Ag (IRAJ MARIA) (12/09/2022 1:30 PM EDT) Pathologist [facility] HIV AB/AG Nonreactive Nonreactive [facility] Comment:HIV-1 p24 Ag and/or HIV-1/HIV-2 Ab not detected.A test result that is nonreactive does not exclude thepossibility of exposure to or infection with HIV-1 and/orHIV-2. Nonreactive results in this assay for individualswith prior exposure to HIV-1 and/or HIV-2 may be due toantigen and antibody levels that are below the limit ofdetection of this assay.[facility] HIV Ag/Ab Combo assay result andsupplemental assay results should be interpreted inconjunction with the patient's clinical presentation,history and other laboratory results. If the results areinconsistent with clinical evidence, additional testing issuggested to confirm the result. 12/09/2022 1:30 PM EDT 12/09/2022 4:12 PM EDT us Marisa Livingston MD LAB BLOOD ORDERABLES Fin al Result [facility] [address] [place] [phone] * Lipid Panel, Standard (12/09/2022 1:30 PM EDT) Triglycerides 56 mg/dL [facility] Comment:Desirable Triglyceri de: less than 150 mg/dLBorderline High Triglyceride 150-199 mg/dLHigh Triglyceride: 200-499 mg/dLVery High Triglyceride: greater than or equal to 5OO mg/dL Cholesterol 114 mg/dL [facility] Comment:Desirable Cholestero l: less than 200 mg/dLBorderline High Cholesterol: 200-239 mg/dLHigh Cholesterol: greater than 239 mg/dL LDL Cholesterol Calculated 65 mg/dl [facility] Comment:Desirable LDL: less than 100 mg/dLNear Optimal/Above Optimal LDL: 110- 129 mg/dLBorderline High LDL: 130-159 mg/dLHigh LDL: 160-189 mg/dLVery High LDL: greater than or equal to 190 mg/dL HDL Cholesterol 38 mg/dL [facility] Comment:Desirable HDL: great er than 40 mg/dL Note: This HDL assay may give artificially low results in patients with liver disease. 12/09/2022 1:30 PM EDT 12/09/2022 4:12 PM EDT Marisa Livingston MD LAB BLOOD ORDERABLES Fin al Result [facility] [address] [place] [address] [phone] from Last 3 Months or Most Recently Relevant to Health Maintenance Insurance [place] [facility] MEDICAID STAND ADULT Care Teams Family Advocate Relationship Specialty Start Date End Date Marisa Livingston MD [address] [place] [address] PCP - General Family Medicine 03/12/19 Perez Vergara RN [address] [place] [address] Carding SupervisorMimeograph Operator 06/30/24
--- OUTSIDE RECORDS SUMMARY | 2024-07-22 12:56 | XMS_ITS | Encounter Summary ---
Author Organization [employer] Address [address] [facility] 7 [place] [address] Care Team Providers Care Head Transfer Clerk Name Role Phone Marisa Livingston MD Primary Care Provider + Encounter Details Date Type Department Care Team ([facility] st Contact Info) Description 06/29/2024 Patient Outreach [facility]ICINE [address] [place] [address] Marisa Livingston MD [address] [place] [address] Social History Tobacco Use Types Packs/Day Years [...] Description 08/06/2024 11:00 AM EDT Office Visit [facility] ADULT DENTAL [address] [place] [address] Berlin Hagen, BERNIE [address] [place] [address] 08/06/2024 3:00 PM EDT Clinical Support [facility] DIABETES/NUTRITION [address] [place] [address] [place] [address] 09/22/2024 11:30 AM EDT Telemedicine [facility] [address] [place] [address] Marisa Livingston MD [address] [place] [address] documented as of this encounter Visit Diagnoses Not on filedocumented in this encounter Additional Health Concerns Assessment Noted Time PHQ-9 Depression Total Score: 17 024 9:31 AM EST documented as of this encounter Care Teams Head Transfer Clerk Relationship Specialty Start Date End Date Marisa Livingston MD [address] [place] [address] PCP - General Family Medicine 03/12/19 documented as of this encounter
--- OUTSIDE RECORDS SUMMARY | 2024-07-22 12:56 | XMS_ITS | Encounter Summary ---
Author Organization [employer] Address [address] [facility] [address] 7t [place] [address] Care Team Providers Care Accordion Repairer Name Role Phone Marisa Livingston MD Primary Care Provider + Perez Vergara RN Unavailable [phone] Encounter Details Date Type Department Care Team (Late st Contact Info) Description 07/19/2022 Abstract [facility] ADULT DENTAL [address] [place] [address] Berlin Hagen, DMD [address] [place] [address] Social History Tobacco Use Types Packs/Day Years [...] Description 08/06/2024 11:00 AM EDT Office Visit [facility] CHC ADULT DENTAL [address] [place] [address] Berlin Hagen DMD [address] [place], [place] 08/06/2024 3:00 PM EDT Clinical Support [facility] DIABETES/NUTRITION [address] [place] [address] [place] [address] 09/22/2024 11:30 AM EDT Telemedicine [facility] MEDICINE [address] [place] [address] Marisa Livingston MD [address] [place], [place] documented as of this encounter Visit Diagnoses Not on filedocumented in this encounter Additional Health Concerns Assessment Noted Time PHQ-9 Depression Total Score: 4 07/03/19 23 10:39 AM EST documented as of this encounter Care Teams Accordion Repairer Relationship Specialty Start Date End Date Marisa Livingston MD 230 [place] [address] PCP - General Family Medicine 03/12/19 Perez Vergara RN [address] [place], [place] Bike TechnicianInspector Outside Production 06/30/24 documented as of this encounter
--- OUTSIDE RECORDS SUMMARY | 2024-07-22 12:56 | XMS_ITS | Encounter Summary ---
Author Organization [employer] Address 75 [facility] 7 [place] [address] Care Team Providers Care Outside Collector Name Role Phone Marisa Livingston MD Primary Care Provider + Reason for Visit * Reason Comments [facility]ination [facility] call outreach Encounter Details Date Type Department Care Team (Latest Contact Info) Description 06/29/2024 Patient Outreach [facility] MEDICINE [address] [place] [address] Marsia Livingston MD 230 [place] [address] Care Coordination [facility] Lloyd telephone call outreach) Social History [...] at this time. LVM introducing herself from [facility] CM Department, reminding patient of initial assessment appt via telephone on 06/30/24 @ 1:00PM with Adult Complex Care program services. Requested call back to , as well as for any additional questions or concerns. documented in this encounter Plan of Treatment Upcoming Encounters Date Type Department Care Team (Late st Contact Info) Description 08/06/2024 11:00 AM EDT Office Visit [facility] CHC ADULT DENTAL [address] [place] [address] Berlin Hagen, BERNIE 505 [place] [address] 08/06/2024 3:00 PM EDT Clinical Support [facility] DIABETES/NUTRITION [address] [place] [address] [place] [address] 09/22/2024 11:30 AM EDT Telemedicine [facility] MEDICINE [address] [place] [address] Marisa Livingston MD 230 [place] [address] documented as of this encounter Visit Diagnoses Not on filedocumented in this encounter Additional Health Concerns Assessment Noted Time PHQ-9 Depression Total Score: 17 024 9:31 AM EST documented as of this encounter Care Teams Outside Collector Relationship Specialty Start Date End Date Marisa Livingston MD [address] [place] [address] PCP - General Family Medicine 03/12/19 documented as of this encounter"
--- OUTSIDE RECORDS SUMMARY | 2024-07-22 12:56 | XMS_ITS | Encounter Summary ---
Author Organization [employer] Address 75 [facility] 7 [place] [address] Care Team Providers Care Genetic Coordinator Name Role Phone Marisa Livingston MD Primary Care Provider + Perez Vergara RN Unavailable [phone] Reason for Visit * Reason Onset Date Comments Appointment Request 07/14/2024 Encounter Details Date Type Department Care Team (Late st Contact Info) Description 07/14/2024 Telephone [facility] MEDICINE 230 [place] [address] Marisa Livingston MD 230 [place] [address] Appointment Request Social History Tobacco Use Types [...] Description 08/06/2024 11:00 AM EDT Office Visit [facility] CHC ADULT DENTAL 505 [place] [address] Berlin Hagen, BERNIE 505 [place] [address] 08/06/2024 3:00 PM EDT Clinical Support [facility] DIABETES/NUTRITION [address] [place] [address] Mandi Pinedo, MEAGAN 230 [place] [address] 09/22/2024 11:30 AM EDT Telemedicine [facility] MEDICINE [address] [place] [address] Marisa Livingston MD [address] [place] [address] documented as of this encounter Visit Diagnoses Not on filedocumented in this encounter Additional Health Concerns Assessment Noted Time PHQ-9 Depression Total Score: 17 025 9:47 AM EST documented as of this encounter Care Teams Genetic Coordinator Relationship Specialty Start Date End Date Marisa Livingston MD 230 [place] [address] PCP - General Family Medicine 03/12/19 Perez Vergara RN [address] [place] [address] Harness PreparerFire Protection Engineer 06/30/24 documented as of this encounter
--- OUTSIDE RECORDS SUMMARY | 2024-07-22 12:57 | XMS_ITS | Encounter Summary ---
Author Organization [employer] Address [address] [facility] [address], [place] [address] Care Team Providers Care Landman Name Role Phone Marisa Livingston MD Primary Care Provider + Perez Vergara RN Unavailable [phone] Reason for Visit * Reason Onset Date Comments Appointment 07/12/2022 Encounter Details Date Type Department Care Team (Late st Contact Info) Description 07/12/2022 Telephone [facility] ADULT DENTAL 230 [place] [address] Yeison Arnold, DMD [address] [place] [address] Appointment Social History Tobacco Use Types Packs/Day [...] Description 08/06/2024 11:00 AM EDT Office Visit [facility] CHC ADULT DENTAL 505 [place], [place] [phone] Berlin Hagen, BERNIE 505 [place] [address] 08/06/2024 3:00 PM EDT Clinical Support [facility] DIABETES/NUTRITION 230 [place] [address] Mandi Pinedo, RD 230 [place] [address] 09/22/2024 11:30 AM EDT Telemedicine [facility] MEDICINE 230 [place] [address] Marisa Livingston MD 230 [place] [address] documented as of this encounter Visit Diagnoses Not on filedocumented in this encounter Additional Health Concerns Assessment Noted Time PHQ-9 Depression Total Score: 4 07/03/19 23 10:39 AM EST documented as of this encounter Care Teams Landman Relationship Specialty Start Date End Date Marisa Livingston MD [address] [place] [address] PCP - General Family Medicine 03/12/19 Perez Vergara RN 505 [place] [address] Dinkey OperatorRaw Stock Drier Tender 06/30/24 documented as of this encounter
--- OUTSIDE RECORDS SUMMARY | 2024-07-22 12:57 | XMS_ITS | Encounter Summary ---
Author Organization [employer] Address 75 [facility] 7 [place] [address] Care Team Providers Care Local Area Network Administrator Name Role Phone Marisa Livingston MD Primary Care Provider + Perez Vergara RN Unavailable [phone] Reason for Visit * Reason Onset Date Comments no show 07/02/2024 Encounter Details Date Type Department Care Team (Late st Contact Info) Description 07/02/2024 Telephone [facility] MEDICINE 230 [place] [address] Marisa Livingston MD [address] [place] [address] no show Social History Tobacco Use Types [...] 11:00 AM EDT Office Visit [facility] CHC ADULT DENTAL 505 [place] [address] Berlin Hagen, BERNIE 505 [place] [address] 08/06/2024 3:00 PM EDT Clinical Support [facility] DIABETES/NUTRITION 230 [place] [address] [place] [address] 09/22/2024 11:30 AM EDT Telemedicine [facility] MEDICINE 230 [place] [address] Marisa Livingston MD [address] [place] [address] documented as of this encounter Visit Diagnoses Not on filedocumented in this encounter Additional Health Concerns Assessment Noted Time PHQ-9 Depression Total Score: 17 024 9:31 AM EST documented as of this encounter Care Teams Local Area Network Administrator Relationship Specialty Start Date End Date Marisa Livingston MD [address] [place] [address] PCP - General Family Medicine 03/12/19 Perez Vergara RN [address] [place] [address] Poultry PathologistPocket Machine Operator 06/30/24 documented as of this encounter
--- OUTSIDE RECORDS SUMMARY | 2024-07-22 12:57 | XMS_ITS | Encounter Summary ---
Author Organization [employer] Address 75 [facility] 7 [place] [address] Care Team Providers Care Log Getter Name Role Phone Marisa Livingston MD Primary Care Provider + Perez Vergara RN Unavailable [phone] Reason for Visit * Reason Onset Date Comments Chart prep 07/01/2024 Encounter Details Date Type Department Care Team (Late st Contact Info) Description 07/01/2024 Telephone [facility] MEDICINE 230 [place] [address] Marisa Livingston MD [address] [place] [address] Chart prep Social History Tobacco Use Types [...] 11:00 AM EDT Office Visit [facility] CHC ADULT DENTAL [address] [place] [address] Berlin Hagen, DMD [address] [place] [address] 08/06/2024 3:00 PM EDT Clinical Support [facility] DIABETES/NUTRITION [address] [place] [address] Mandi Pinedo, MEAGAN [address] [place] [address] 09/22/2024 11:30 AM EDT Telemedicine [facility] MEDICINE [address] [place] [address] Marisa Livingston MD [address] [place] [address] documented as of this encounter Visit Diagnoses Not on filedocumented in this encounter Additional Health Concerns Assessment Noted Time PHQ-9 Depression Total Score: 17 024 9:31 AM EST documented as of this encounter Care Teams Log Getter Relationship Specialty Start Date End Date Marisa Livingston MD [address] [place] [address] PCP - General Family Medicine 03/12/19 Perez Vergara RN [address] [place] [address] Volunteer Services SpecialistSoldering Machine Operator Helper 06/30/24 documented as of this encounter
--- OUTSIDE RECORDS SUMMARY | 2024-07-22 12:57 | XMS_ITS | Encounter Summary ---
Author Organization [employer] Address 75 [facility] 7 [place] [address] Care Team Providers Care Clay Pigeon Loader Name Role Phone Marisa Livingston MD Primary Care Provider + Perez Vergara RN Unavailable Reason for Visit * Reason Onset Date Comments Chart prep 07/07/2024 Encounter Details Date Type Department Care Team (Late st Contact Info) Description 07/07/[address] [facility] MEDICINE 230 [place] [address] Marisa Livingston MD 230 [place] [address] Chart prep Social History Tobacco Use Types [...] 11:00 AM EDT Office Visit [facility] CHC ADULT DENTAL [address] [place] [address] Berlin Hagen, DMD [address] [place] [address] 08/06/2024 3:00 PM EDT Clinical Support [facility] DIABETES/NUTRITION 230 [place] [address] Mandi Pinedo, MEAGAN 230 [place] [address] 09/22/2024 11:30 AM EDT Telemedicine [facility] MEDICINE 230 [place] [address] Marisa Livingston MD [address] [place] [address] documented as of this encounter Visit Diagnoses Not on filedocumented in this encounter Additional Health Concerns Assessment Noted Time PHQ-9 Depression Total Score: 17 024 9:31 AM EST documented as of this encounter Care Teams Clay Pigeon Loader Relationship Specialty Start Date End Date Marisa Livingston MD [address] [place] [address] PCP - General Family Medicine 03/12/19 Perez Vergara RN [address] [place] [address] Mill RepresentativeSystems Planner 06/30/24 documented as of this encounter
--- OUTSIDE RECORDS SUMMARY | 2024-07-22 12:57 | XMS_ITS | Encounter Summary ---
Author Organization [employer] Address [address] [place] [address] [facility] [place] [address] Care Team Providers Care Dealership Manager Name Role Phone Marisa Livingston MD Primary Care Provider + Perez Vergara RN Unavailable [phone] Reason for Referral * Consultation (Routine) - Authorized Specialty Diagnoses / Procedures Referred By Nadya t Referred To Contact Nutrition Diagnoses Obesity due to excess calories without serious comorbidity, unspecified class Marisa Livingston MD [address] [place] [address] Phone: tel: fax: Referral ID Status Reason Start Date Expiration Date Visits Requested Visits Authorized [id number] Authorized Consult and Treat 07/14/2024 07/14/2025 1 1 * Consultation (Routine) - Authorized Specialty Diagnoses / Procedures Referred By Contdaniela t Referred To Contact Obstetrics and Gynecology Diagnoses Menorrhagia with regular cycle Marisa Livingston MD [address] [place] [address] Phone: tel: fax: [address] Phone: tel: fax: Referral ID Status Reason Start Date Expiration Date Visits Requested Visits Authorized [id number] Authorized Specialty Services Required 07/16/2024 07/16/2025 9 9 Reason for Visit * Reason Comments Asthma Encounter Details Date Type Department Care Team (Late st Contact Info) Description 07/14/2024 10:00 AM EST Telemedicine [facility] MEDICINE [address] [place] [address] Marisa Livingston MD [address] [place] [address] Moderate persistent asthma without complication (Primary Dx); [...] your housing situation today? I have yenny santosh 06/29/[address] you li [...] started on Advair and Albuterol seen by Principal Examiner (Dr. Parada) who started her on Lasix [...] hrs. She has appointment on 07/22/2024 with bacteriologist fishery She has an appointment on 07/16/2024 for echocardiogram and hematology due to abnormal D-dimer result at ED visit. LMP 07/01/2024 X 8 days, menorrhagia. She is not taking iron rx. Last visit with her Greige Goods Examiner she has told everything was reportedly normal [...] Onset Blindness Sister Other (legal blindness) Brother Mallee ann Hypertension Mother 22 No Known Problems Father [...] and extreme temperatures. Continue close FU with Principal Examiner. Continue Advair plus Duo Neb, awaiting pa [...] cause of anemia. I will refer to Automated Logistics Specialist at [facility] for treatment that may include IUD for [...] g 2 ergocalciferol (Vitamin D2) 1.25 MG (21238 UT) capsule TAKE 1 CAPSULE(1.25 MG) BY [...] mL 2 Nebulizers (Vios Aerosol Delivery System) [facility] USE DIRECTED. OXcarbazepine (Trileptal) 300 MG tablet [...] facility-administered medications on file prior to visit. IJaki, am serving as a scribe to document [...] and extreme temperatures. Continue close FU with Principal Examiner. Continue Advair plus Duo Neb, awaiting pa [...] cause of anemia. I will refer to Automated Logistics Specialist at [facility] for treatment that may include IUD for one year as patient wants toget . She agreed to hormonal treatment if needed and delay until medical conditions are more stable. documented in this encounter Plan of Treatment Upcoming Encounters Date Type Department Care Team (Late st Contact Info) Description 08/06/2024 11:00 AM EDT Office Visit [facility] CHC ADULT DENTAL [address] [place] [address] Berlin Hagen, DMD 505 [place] [address] 08/06/2024 3:00 PM EDT Clinical Support [facility] DIABETES/NUTRITION [address] [place] [address] [place] [address] 09/22/2024 11:30 AM EDT Telemedicine [facility] MEDICINE [address] [place] [address] Marisa Livingston MD [address] [place] [address] Scheduled Orders Name Type Priority Associated Diagnoses Orde r Schedule T-SPOT??.TB Lab Routine Moderate persistent asthma without complication Expected: 07/14/2024 (Approximate), Expires: 07/14/2025 Scheduled Referrals Name Type Priority Associated Diagnoses Orde r Schedule Referral to Gynecology Outpatient Referral Routine Menorrhagia with regular cycle Expected: 07/14/2024 (Approximate), Expires: 07/14/2025 Referral to Nutrition Therapy Outpatient Referral Routine Obesity due to excess calories without serious comorbidity, unspecified class Expected: 07/14/2024 (Approximate), Expires: 07/14/2025 documented as of this encounter Procedures Procedure Name Priority Date/Time Associated Diagnosis Comments BASIC METABOLIC PANEL Routine 07/22/2024 10:48 AM EST Cardiac enlargement documented in this encounter Results * (ABNORMAL) Basic Metabolic Panel (07/22/2024 10:48 AM EST) Sodium 139 135 - 145 mmol/L [facility] Potassium 3.8 3.3 - 5.1 mmol/L [facility] Chloride 109(H) 96 - 108 mmol/L [facility] Carbon Dioxide 25 22 - 29 mmol/L [facility] Anion Gap 9(L) 12 - 20 [facility] Urea Nitrogen (BUN) 8(L) 9 - 16 mg/dL [facility] Creatinine, Serum 0.58 0.5 - 1.4 mg/dL [facility] Estimated Glomerular Filt Rate >60 [facility] Comment:Chronic Kidney Disea se: Estimated GFR < 60 mL/min/1.80i8Mzhirv Kidney Disease: Estimated GFR < 15 mL/min/1.73m2 Glucose 91 60 - 115 mg/dL [facility] Calcium 9.5 8.4 - 10.2 mg/dL [facility] Blood Venous blood specimen / Unknown 07/22/2024 10:48 AM EST 07/22/2024 11:51 AM EST us Marisa Livingston MD LAB BLOOD ORDERABLES Fin al Result [facility] [address] [place] [phone] documented in this encounter Visit Diagnoses Diagnosis Moderate persistent asthma without complication- Primary Cardiac enlargement Cardiomegaly Menorrhagia with regular cycle Obesity due to excess calories without serious comorbidity, unspecified class documented in this encounter Additional Health Concerns Assessment Noted Time PHQ-9 Depression Total Score: 17 025 9:47 AM EST documented as of this encounter Care Teams Dealership Manager Relationship Specialty Start Date End Date Marisa Livingston MD [address] [place] [address] PCP - General Family Medicine 03/12/19 Perez Vergara RN [address] [place] [address] Silver SoldererNews Reel Cameraman 06/30/24 documented as of this encounter
--- OUTSIDE RECORDS SUMMARY | 2024-07-22 12:57 | XMS_ITS | Encounter Summary ---
Author Organization [employer] Address 75 [facility] 7 [place] [address] Care Team Providers Care Germination Testing Manager Name Role Phone Marisa Livingston MD Primary Care Provider + Perez Vergara RN Unavailable [phone] Reason for Visit * Reason Onset Date Comments Appointment Request 07/09/2024 Encounter Details Date Type Department Care Team (Late st Contact Info) Description 07/09/2024 Telephone [facility] MEDICINE [address] [place] [address] Marisa Livingston MD 230 [place] [address] Appointment Request Social History Tobacco Use Types [...] Description 08/06/2024 11:00 AM EDT Office Visit [facility] CHC ADULT DENTAL 505 [place] [address] [place] Hagen, BERNIE 505 [place] [address] 08/06/2024 3:00 PM EDT Clinical Support [facility] DIABETES/NUTRITION 230 [place] [address] [place] [address] 09/22/2024 11:30 AM EDT Telemedicine [facility] MEDICINE [address] [place], [place] [phone] Marisa Livingston MD 230 [place] [address] documented as of this encounter Visit Diagnoses Not on filedocumented in this encounter Additional Health Concerns Assessment Noted Time PHQ-9 Depression Total Score: 17 024 9:31 AM EST documented as of this encounter Care Teams Germination Testing Manager Relationship Specialty Start Date End Date Marisa Livingston MD [address] [place], [place] [phone] PCP - General Family Medicine 03/12/19 Perez Vergara RN [address] [place] [address] Bow String MakerNurse Sexual Assault 06/30/24 documented as of this encounter
--- OUTSIDE RECORDS SUMMARY | 2024-07-22 12:57 | XMS_ITS | Encounter Summary ---
Author Organization [employer] Address [address] [facility] [address] 7t [place] [address] Care Team Providers Care Hat Maker Name Role Phone Marisa Livingston MD Primary Care Provider + Perez Vergara RN Unavailable [phone] Encounter Details Date Type Department Care [...] 08/06/2024 11:00 AM EDT Office Visit [facility] CHC ADULT DENTAL 505 [place] [address] [place] Hagen, BERNIE 505 [place] [address] 08/06/2024 3:00 PM EDT Clinical Support [facility] DIABETES/NUTRITION 230 [place] [address] Mandi Pinedo, MEAGAN 230 [place] [address] 09/22/2024 11:30 AM EDT Telemedicine [facility] MEDICINE 230 [place] [address] Marisa Livingston MD 230 [place] [address] documented as of this encounter Visit Diagnoses Not on filedocumented in this encounter Additional Health Concerns Assessment Noted Time PHQ-9 Depression Total Score: 17 025 9:47 AM EST documented as of this encounter Care Teams Hat Maker Relationship Specialty Start Date End Date Marisa Livingston MD [address] [place] [address] PCP - General Family Medicine 03/12/19 Perez Vergara RN [address] [place] [address] [place] [address] Image ArchivistBelt Sewer 06/30/24 documented as of this encounter
--- OUTSIDE RECORDS SUMMARY | 2024-07-22 12:57 | XMS_ITS | Encounter Summary ---
Author Organization [employer] Address [address] [place] [address] 7 [place] [address] Care Team Providers Care Real Estate Attorney Name Role Phone Marisa Livingston MD Primary Care Provider + Perez Vergara RN Unavailable [phone] Encounter Details Date Type Department Care Team (Latest Contact Info) Description 02/27/2022 Abstract [facility] CONVERSIONS Dental, Provider, DDS Social History Tobacco [...] 11:00 AM EDT Office Visit [facility] CHC ADULT DENTAL [address] [place] [address] [place] Hagen, DMD 505 [place] [address] 08/06/2024 3:00 PM EDT Clinical Support [facility] DIABETES/NUTRITION 230 [place] [address] Mandi Pinedo, RD 230 [place] [address] 09/22/2024 11:30 AM EDT Telemedicine [facility] MEDICINE 230 [place] [address] Marisa Livingston MD 230 [place] [address] documented as of this encounter Visit Diagnoses Not on filedocumented in this encounter Care Teams Real Estate Attorney Relationship Specialty Start Date End Date Marisa Livingston MD 230 [place] [address] PCP - General Family Medicine 03/12/19 Perez Vergara RN [address] [place] [address] Stationary FiremanIon Implant Machine Operator 06/30/24 documented as of this encounter
--- OUTSIDE RECORDS SUMMARY | 2024-07-22 12:57 | XMS_ITS | Encounter Summary ---
Author Organization [employer] Address 75 [facility] 7 [place] [address] Care Team Providers Care Automatic Lathe Tender Name Role Phone Marisa Livingston MD Primary Care Provider + Perez Vergara RN Unavailable [phone] Reason for Visit * Reason Onset Date Comments Chart prep 07/09/2024 Encounter Details Date Type Department Care Team (Late st Contact Info) Description 07/09/2024 Telephone [facility] MEDICINE 230 [place] [address] Marisa Livingston MD 230 [place] [address] Chart prep Social History Tobacco Use Types [...] Description 08/06/2024 11:00 AM EDT Office Visit [facility] CHC ADULT DENTAL [address] [place] [address] [place] Hagen, DMD [address] [place] [address] 08/06/2024 3:00 PM EDT Clinical Support [facility] DIABETES/NUTRITION 230 [place] [address] Mandi Pinedo, MEAGAN 230 [place] [address] 09/22/2024 11:30 AM EDT Telemedicine [facility] MEDICINE 230 [place] [address] Marisa Livingston MD 230 [place] [address] documented as of this encounter Visit Diagnoses Not on filedocumented in this encounter Additional Health Concerns Assessment Noted Time PHQ-9 Depression Total Score: 17 024 9:31 AM EST documented as of this encounter Care Teams Automatic Lathe Tender Relationship Specialty Start Date End Date Marisa Livingston MD [address] [place] [address] PCP - General Family Medicine 03/12/19 Perez Vergara RN [address] [place] [address] Modular Home Crew MemberMaterials Handling Coordinator 06/30/24 documented as of this encounter
--- OUTSIDE RECORDS SUMMARY | 2024-07-22 12:57 | XMS_ITS | Encounter Summary ---
Author Organization [employer] Address [address] [place] [address] 7 [place] [address] Care Team Providers Care Cullet Crusher And Washer Name Role Phone Marisa Livingston MD Primary Care Provider + Perez Vergara RN Unavailable [phone] Encounter Details Date Type Department Care Team (Late st Contact Info) Description 06/27/2022 Abstract [facility] ADULT DENTAL 230 [place] [address] Jeramie Treadwell DDS 230 [place] [address] Social History Tobacco Use Types Packs/Day Years [...] Description 08/06/2024 11:00 AM EDT Office Visit [facility] ADULT DENTAL 505 [place], [place] [phone] [place] Hagen DMD 505 [place] [address] 08/06/2024 3:00 PM EDT Clinical Support [facility] DIABETES/NUTRITION 230 [place] [address] 230 [place] [address] 09/22/2024 11:30 AM EDT Telemedicine [facility] MEDICINE 230 [place] [address] Marisa Livingston MD 230 [place], [place] [phone] documented as of this encounter Visit Diagnoses Not on filedocumented in this encounter Care Teams Cullet Crusher And Washer Relationship Specialty Start Date End Date Marisa Livingston MD 230 [place], [place] [phone] PCP - General Family Medicine 03/12/19 Perez Vergara, CHAPITO 505 [facility] [place] [address] Monogram OperatorSecurity Researcher 06/30/24 documented as of this encounter
--- OUTSIDE RECORDS SUMMARY | 2024-07-22 12:57 | XMS_ITS | Encounter Summary ---
Author Organization [employer] Address 75 [facility] 7 [place] [address] Care Team Providers Care Customer Acquisition Manager Name Role Phone Marisa Livingston MD Primary Care Provider + Perez Vergara RN Unavailable [phone] Reason for Visit * Reason Onset Date Comments Appointment Request 07/09/2024 Encounter Details Date Type Department Care Team (Late st Contact Info) Description 07/09/2024 Telephone [facility] MEDICINE 230 [place] [address] Marisa Livingston MD 230 [place] [address] Appointment Request Social History Tobacco Use Types [...] to reschedule appt with pcp. Contact pt, greenlandic documented in this encounter Plan of Treatment Upcoming Encounters Date Type Department Care Team ([facility] st Contact Info) Description 08/06/2024 11:00 AM EDT Office Visit [facility] CHC ADULT DENTAL 505 [place] [address] [place] Hagen, DMD [address] [place] [address] 08/06/2024 3:00 PM EDT Clinical Support [facility] DIABETES/NUTRITION 230 [place] [address] Mandi Pinedo, MEAGAN 230 [place] [address] 09/22/2024 11:30 AM EDT Telemedicine [facility] MEDICINE 230 [place] [address] Marisa Livingston MD 230 [place] [address] documented as of this encounter Visit Diagnoses Not on filedocumented in this encounter Additional Health Concerns Assessment Noted Time PHQ-9 Depression Total Score: 17 024 9:31 AM EST documented as of this encounter Care Teams Customer Acquisition Manager Relationship Specialty Start Date End Date Marisa Livingston MD 230 [place] [address] PCP - General Family Medicine 03/12/19 Perez Vergara RN [address] [place] [address] Gas Regulator Repairer HelperDirector Of Physiotherapy Services 06/30/24 documented as of this encounter
--- OUTSIDE RECORDS SUMMARY | 2024-07-22 12:57 | XMS_ITS | Encounter Summary ---
Author Organization [employer] Address [address] [place] [address] 7 [place] [address] Care Team Providers Care Hospice Care Consultant Name Role Phone Marisa Livingston MD Primary Care Provider + Perez Vergara RN Unavailable [phone] Encounter Details Date Type Department Care Team (Latest Contact Info) Description 03/26/2019 Abstract [facility] CONVERSIONS Dental, Provider, DDS Social History Tobacco [...] 11:00 AM EDT Office Visit [facility] CHC ADULT DENTAL 505 [place] [address] [place] Hagen, DMD 505 [place] [address] 08/06/2024 3:00 PM EDT Clinical Support [facility] DIABETES/NUTRITION 230 [place] [address] Mandi Pinedo, MEAGAN 230 [place] [address] 09/22/2024 11:30 AM EDT Telemedicine [facility] MEDICINE 230 [place] [address] Marisa Livingston MD 230 [place] [address] documented as of this encounter Visit Diagnoses Not on filedocumented in this encounter Care Teams Hospice Care Consultant Relationship Specialty Start Date End Date Marisa Livingston MD 230 [place] [address] PCP - General Family Medicine 03/12/19 Perez Vergara RN [address] [place] [address] BioinformaticistLine Crew Supervisor 06/30/24 documented as of this encounter
--- OUTSIDE RECORDS SUMMARY | 2024-07-22 12:57 | XMS_ITS | Encounter Summary ---
Author Organization [employer] Address [address] [place] [address] [address] [place] [address] Care Team Providers Care Press Pipe Inspector Name Role Phone Marisa Livingston MD Primary Care Provider + Perez Vergara RN Unavailable [phone] Reason for Visit * Reason Onset Date Comments Care Management 07/14/2024 C3CM- f/u call Encounter Details Date Type Department Care Team ([facility] st Contact Info) Description 07/14/2024 Telephone [facility] MEDICINE 230 [place], [place] [phone] Marisa Livingston MD 230 [place] [address] Care Management (C3CM- f/u call) Social History [...] provided on Walk-In Urgent Care located in [facility] of [facility]. Patient provided with after-hours line for [facility], , which offer night time triage service and option to transfer to conical mixer provider if needed. Patient verbalizes understanding, and able to repeat back to typewriter tester. A follow up call will be placed within 10 days, patientagrees with plan. documented in this encounter Plan of Treatment Upcoming Encounters Date Type Department Care Team (Late st Contact Info) Description 08/06/2024 11:00 AM EDT Office Visit [facility] CHC ADULT DENTAL [address] [place], [place] [phone] [place] Hagen, BERNIE [address] [place] [address] 08/06/2024 3:00 PM EDT Clinical Support [facility] DIABETES/NUTRITION 230 [place] [address] Mandi Pinedo, MEAGAN 230 [place] [address] 09/22/2024 11:30 AM EDT Telemedicine [facility] MEDICINE 230 [place] [address] Marisa Livingston MD 230 [place] [address] documented as of this encounter Visit Diagnoses Not on filedocumented in this encounter Additional Health Concerns Assessment Noted Time PHQ-9 Depression Total Score: 17 025 9:47 AM EST documented as of this encounter Care Teams Press Pipe Inspector Relationship Specialty Start Date End Date Marisa Livingston MD 230 [place] [address] PCP - General Family Medicine 03/12/19 Perez Vergara RN [address] [place] [address] Route ClerkDairy Worker 06/30/24 documented as of this encounter
--- OUTSIDE RECORDS SUMMARY | 2024-07-22 12:57 | XMS_ITS | Encounter Summary ---
Author Organization [employer] Address 75 [facility] 7 [place] [address] Care Team Providers Care Cracking Machine Operator Name Role Phone Marisa Livingston MD Primary Care Provider + Perez Vergara RN Unavailable [phone] Reason for Visit * Reason Onset Date Comments Appointment Confirmation 07/14/2024 Encounter Details Date Type Department Care Team (Late st Contact Info) Description 07/14/[address] [facility] MEDICINE [address] [place] [address] Marisa Livingston MD 230 [place] [address] Appointment Confirmation Social History Tobacco Use Types [...] - 07/14/2024 10:16 AM EST Tc to [facility] cardiology to confirm any upcoming appt for pt. Spoke to Yuni who stated pt is scheduled 07/16/24 at 1:20 pm with hematology and 07/16/24 at 10:00 am for echo. documented in this encounter Plan of Treatment Upcoming Encounters Date Type Department Care Team (Late st Contact Info) Description 08/06/2024 11:00 AM EDT Office Visit [facility] CHC ADULT DENTAL 505 [place] [address] [place] Hagen, DMD 505 [place] [address] 08/06/2024 3:00 PM EDT Clinical Support [facility] DIABETES/NUTRITION [address] [place] [address] [place] [address] 09/22/2024 11:[address] [facility] MEDICINE [address] [place] [address] Marisa Livingston MD 230 [place], [place] [phone] documented as of this encounter Visit Diagnoses Not on filedocumented in this encounter Additional Health Concerns Assessment Noted Time PHQ-9 Depression Total Score: 17 025 9:47 AM EST documented as of this encounter Care Teams Cracking Machine Operator Relationship Specialty Start Date End Date Marisa Livingston MD 230 [place], [place] [phone] PCP - General Family Medicine 03/12/19 Perez Vergara, CHAPITO [address] [place] [address] Window CleanerAutomotive Internet Sales Manager 06/30/24 documented as of this encounter
[2024-07-22 13:05] LABS: Vitamin B12 588 pg/mL (200-900)
[2024-07-25 16:47] LABS: TS Negative Control Passed; TS Panel A 0; TS Panel B 1; TS Positive Control Passed; TSpotTB Negative (Negative)
== END 2024-07-22 10:44 | disposition home or self-care (01) ==
LOC: HO.HHCL 10:43
PROVIDERS: Internal Medicine; Visit Provider Nurse Practitioner Family
DX: J45.40 Moderate persistent asthma, uncomplicated (principal); I51.7 Cardiomegaly; D64.9 Anemia, unspecified; Z91.09 Other allergy status, other than to drugs and biological substances; R06.01 Orthopnea
CPT/HCPCS: 36415; 80048; 82607; 86481; 99212

== ENCOUNTER 2024-07-22 13:16 | Outpatient (AMB) | payer MEDICAID, SELFPAY ==
[2024-07-22 13:25] VITALS: BP 111/62; PULSE 106; O2SAT 99; BMI 33.1
--- NOTE | 2024-07-22 13:25 | A.OFFVIS_ITS ---
Vital Signs 07/22/24 13:25 Height 5 ft 4 in Weight 192 lb 14.472 oz BMI 33.1 BP 111/62 Blood Pressure Location Rt brachial Position Sitting Pulse 106 H Pulse Source Doppler Pulse Oximetry (%) 99 Oxygen Delivery Method Room Air Intake Visit Reasons: dyspnea/asthma Granite Polisher Apprentice Required: Yes Granite Polisher Apprentice Name: Mercedes Shearer Lawson Allergies latex Allergy (Verified 07/01/24 09:56) Rash HPI HPI dyspnea/asthma: Details: 33-year-old lady, nonsmoker, followed for underlying severe persistent asthma and environmental allergies. A she has been using Advair and albuterol MDI with suboptimal control of her symptoms. She continues on Fasenra. After the last office visit she was started on diuretic and while she had to cut her dyspnea and orthopnea improved, however the recurred after she has ran out of it. [facility] Medical History Asthma Family History Daughter Cancer of brain Maternal Grandfather Colon cancer Paternal Grandfather Throat cancer Mother Heart problem Social History Household Members: Children Housing: House Alcohol intake: never Patient Tobacco Use Status: Former Tobacco user Current occupational status: employed Gender identity: Female Female Reproductive History Menstrual Age of Menarche: 5 Review of Systems Const Denies daytime sleepiness, Denies excessive sweating, Denies fatigue, Denies fever(s), Denies lethargy, Denies malaise, Denies night sweats, Denies snoring and Denies weight loss Eyes Denies blurry vision and Denies itchy eyes ENT Denies nasal congestion, Denies post nasal drip, Denies sinus pain, Denies sinus pressure and Denies other ( Thrush) Card Denies chest pain, Reports pedal edema, Denies dyspnea, Reports dyspnea on exertion, Denies orthopnea and Denies paroxysmal nocturnal dyspnea Resp Denies cough, Denies hemoptysis, Denies excessive phlegm production, Denies dyspnea, Reports dyspnea on exertion, Denies snoring and Denies wheezing GI Denies abdominal pain and Denies heartburn Musc Denies myalgias, Denies arthralgias and Denies joint swelling Skin/Breast Denies rash Neuro Denies memory loss and Denies seizure-like activity Psych Denies abnormal sleep pattern, Denies anxiety and Denies memory loss Endo Denies excessive sweating, Denies fatigue and Denies heat intolerance Rick/Lymph Denies easy bruising Aller/Immun Denies itchy eyes, Denies seasonal rhinorrhea and Denies wheezing Physical Exam Vital Signs: Last Vital Signs Pulse 106 H 07/22/24 13:25 BP 111/62 07/22/24 13:25 Pulse Ox 99 07/22/24 13:25 Oxygen Delivery Method Room Air 07/22/24 13:25 BMI result Body Mass Index 33.1 Const General: no acute distress and alert Nutritional Appearance: not obese Orientation/consciousness: Other orientation findings ( oriented) HEENT Head: Yes atraumatic Eyes General: appearance normal, both eyes and all related structures Sclerae: sclerae normal EOM: EOMs intact bilaterally Neck Neck: Yes supple Lymphatic: no lymphadenopathy noted Resp Effort & Inspection: normal respiratory effort and no use of accessory muscles Auscultation: clear to auscultation bilaterally Cardio Rate: regular rate Rhythm: regular rhythm Heart sounds: no gallops, no murmurs and no rubs Skin General skin exam: other ( warm) Extrem General: No clubbing, No cyanosis and Yes edema (1+ bilateral) Assessment & Plan Assessment & Plan (1) Asthma: Code(s): J45.909 - Unspecified asthma, uncomplicated Category: Medical Plan: Baseline controlled on current regimen of Fasenra, Advair, duo nebs, and albuterol MDI. Continue current regimen. (2) Environmental allergies: Code(s): Z91.09 - Other allergy status, other than to drugs and biological substances Category: Medical Plan: Controlled on Fasenra. Continue current regimen. (3) Orthopnea: Code(s): R06.01 - Orthopnea Category: Medical Plan: Improved control on diuretic and recurrence of symptoms of diuretic. Start Lasix 40 mg daily. Coding Level of Care Code Est Pt Level 4 (64506) Complex EM visit Add On G2211 Diagnoses Asthma J45.909 Environmental allergies Z91.09 Orthopnea R06.01
--- OUTSIDE RECORDS SUMMARY | 2024-07-22 16:07 | XMS_ITS | Encounter Summary ---
Author Organization [employer] Address [address] [place] [address] [address] [address] Care Team Providers Care Latex Foam Worker Name Role Phone Marisa Livingston MD Primary Care Provider + Perez Vergara RN Unavailable [phone] Reason for Referral * Consultation (Routine) - Authorized Specialty Diagnoses / Procedures Referred By Contdaniela t Referred To Contact Hematology and Oncology Diagnoses Chronic anemia Jaki Cruz MD [address] [place] [address] Phone: tel: fax: [address] Phone: tel: fax: Referral ID Status Reason Start Date Expiration Date Visits Requested Visits Authorized [id number] Authorized Specialty Services Required 06/17/2024 06/17/2025 6 6 Encounter Details Date Type Department Care Team (Late st Contact Info) Description 06/17/2024 Orders Only [facility] WALK-IN CENTER [address] [place] [address] [phone] Jaki Cruz MD [address] [place] [address] [phone] Chronic anemia (Primary Dx) Social History Tobacco [...] t he electric, gas, oil or water [employer] threatened to shut off services in your [...] Description 08/06/2024 11:00 AM EDT Office Visit [facility] CHC ADULT DENTAL 505 [place] [address] Berlin Hagen DMD 505 [place] [address] 08/06/2024 3:00 PM EDT Clinical Support [facility] DIABETES/NUTRITION 230 [place] [address] [place] [address] 09/22/2024 11:30 AM EDT Telemedicine [facility] MEDICINE [address] [place] [address] Marisa Livingston MD [address] [place] [address] Pending Results Name Type Priority Associated Diagnoses [...] documented as of this encounter Care Teams Latex Foam Worker Relationship Specialty Start Date End Date Marisa Livingston MD [address] [place] [address] PCP - General Family Medicine 03/12/19 Perez Vergara RN [address] [place] [address] Earth MoverExhibit Builder 06/30/24 documented as of this encounter
--- OUTSIDE RECORDS SUMMARY | 2024-07-22 16:07 | XMS_ITS | Encounter Summary ---
Author Organization [employer] Address 75 [facility] 7 [place] [address] Care Team Providers Care Communication Arts Lecturer Name Role Phone Marisa Livingston MD Primary Care Provider + Reason for Visit * Reason Comments Care Coordination [facility] soliman telephone call outreach Encounter Details Date Type Department Care Team (Latest Contact Info) Description 06/29/2024 Patient Outreach [facility] MEDICINE [address] [place] [address] Marisa Livingston MD [address] [place] [address] Care Coordination ([facility] Lloyd telephone call outreach) Social History [...] at this time. LVM introducing herself from [facility] CM Department, reminding patient of initial assessment [...] MEDICAL CENTER CHC ADULT DENTAL [address] [place] [address] [place] Hagen, BERNIE 505 [place] [address] 08/06/2024 3:00 PM EDT Clinical Support [facility] DIABETES/NUTRITION [address] [place] [address] [place] [address] 09/22/2024 11:30 AM EDT Telemedicine [facility] MEDICINE [address] [place] [address] Marisa Livingston MD [address] [place] [address] documented as of this encounter Visit Diagnoses Not on filedocumented in this encounter Additional Health Concerns Assessment Noted Time PHQ-9 Depression Total Score: 17 024 9:31 AM EST documented as of this encounter Care Teams Communication Arts Lecturer Relationship Specialty Start Date End Date Marisa Livingston MD [address] [place] [address] PCP - General Family Medicine 03/12/19 documented as of this encounter
--- OUTSIDE RECORDS SUMMARY | 2024-07-22 16:07 | XMS_ITS | Encounter Summary ---
Author Organization [employer] Address [address] [place] [address] Care Team Providers Care Bead Machine Operator Name Role Phone Marisa Livingston MD Primary Care Provider + Perez Vergara RN Unavailable [phone] Encounter Details Date Type Department Care Team (Late st Contact Info) Description 07/19/2022 Abstract [facility] ADULT D[facility]AL [address] [place] [address] [place] Hagen, DMD [address] [place] [address] Social History Tobacco Use Types Packs/Day Years [...] Description 08/06/2024 11:00 AM EDT Office Visit [facility] [address] [place] [address] [place] Hagen DMD [address] [place], [place] 08/06/2024 3:00 PM EDT Clinical Support [facility] DIABETES/NUTRITION [address] [place] [address] [place] [address] 09/22/2024 11:30 AM EDT Telemedicine [facility] MEDICINE [address] [place] [address] Marisa Livingston MD [address] [place], [place] documented as of this encounter Visit Diagnoses Not on filedocumented in this encounter Additional Health Concerns Assessment Noted Time PHQ-9 Depression Total Score: 4 07/03/19 23 10:39 AM EST documented as of this encounter Care Teams Bead Machine Operator Relationship Specialty Start Date End Date Marisa Livingston MD [address] [place] [address] PCP - General Family Medicine 03/12/19 Perez Vergara RN [address] [place], [place] Mdm [employer] 06/30/24 documented as of this encounter
--- OUTSIDE RECORDS SUMMARY | 2024-07-22 16:07 | XMS_ITS | Clinical Summary ---
Author Organization [employer] Address [address] [place] [address] Care Team Providers Care Lamina Searcher Name Role Phone Marisa Livingston MD Primary Care Provider + Perez Vergara RN Unavailable [phone] Allergies Active Allergy Reactions Criticality Noted [...] hours. Active Nebulizers (Vios Aerosol Delivery System) [facility] USE DIRECTED. 3 Active Fasenra Pen 30 [...] 4 Active ergocalciferol (Vitamin D2) 1.25 MG (38201 UT) capsule TAKE 1 CAPSULE(1.25 MG) BY [...] of pulmonary embolus or acute aortic syndrome. Biuo-mm-lrvfaqul cardiac enlargement with predominantly biventricular dilatation. Enlarged [...] of pulmonary embolus or acute aortic syndrome. Kavq-jb-gyhpexlt cardiac enlargement with predominantly biventricular dilatation. Enlarged main pulmonary artery suggesting pulmonary arterial hypertension. -will refer to cardiology Moderate persistent asthma without complication 06/17/2024 Assessment & Plan (07/14/2024 10:59 AM EST): Uncontrolled, worsening s/p Influenza. Chronic exposure to environmental allergens and extreme temperatures. Continue close FU with Feed Crusher Operator. Continue Advair plus Duo Neb, awaiting pa for Fasenra. Will consider allergy testing. Menorrhagia with regular cycle 04/16/2023 Assessment & Plan (07/14/2024 10:51 AM EST): Persistent, most probable cause of anemia. I will refer to Policy Officer at [facility] for treatment that may include IUD [...] exercise, life style modifications, diet, referral to school library media specialist. Discussed re lower calorie intake, increase dietary fiber Assessment & Plan (11/22/2022 1:34 PM EDT): Discussed re weight reduction options including exercise, life style modifications, diet, referral to school library media specialist. Discussed re lower calorie intake, increase [...] -Uncontrolled. -Restart Advair Diskus -Follow up with stapler machine for immunotherapy. -Counseled on protocol for FMLA [...] gave today NBZ machine written prescription to [facility] nurse staff -Alarm signs and sx [...] anti-muscarinic inhaler as Trelegy -Referred today to orthopedic cast specialist for uncontrolled asthma Assessment & Plan (07/03/2022 [...] exercise, life style modifications, diet, referral to school library media specialist. Discussed re lower calorie intake, increase [...] at home PAP smear: Overdue, refer to real estate sales supervisor will need further eval for DUB Adult [...] Encounters Date Type Department Care Team Description 07/22/2024 Telephone [facility] MEDICINE [address] [place] [phone] Marisa Livingston MD Results 07/14/2024 10:00 AM EST Telemedicine [address] [address] Marisa Livingston MD Moderate persistent asthma without complication (Primary Dx); Cardiac enlargement; Menorrhagia with regular cycle; Obesity due to excess calories without serious comorbidity, unspecified class 07/14/2024 Patient Outreach [facility] MEDICINE [address] [place] [phone] Marisa Livingston MD Care Coordination (C3 -[facility] Stacey Lloyd telephone call outreach) 07/14/[address] [address] Marisa Livingston MD Appointment Request 07/14/[address] [address] Marisa Livingston MD Appointment Confirmation 07/14/2024 Telephone [facility] MEDICINE [address] [place] [phone] Marisa Livingston MD Care Management ([facility]- f/u call) 07/14/2024 Travel 07/09/[address] [address] Marisa Livingston MD Chart prep 07/09/2024 Telephone [facility] MEDICINE [address] [place] [phone] Marisa Livingston MD Appointment Request 07/09/[address] [address] Marisa Livingston MD Appointment Request 07/07/[address] [address] Marisa Livingston MD Chart prep 07/02/[address] [address] Marisa Livingston MD no show 07/01/2024 Telephone [facility] MEDICINE [address] [place] [phone] Marisa Livingston MD Chart prep 06/30/[address] [address] Marisa Livingston MD Care Management ([facility]- initial assessment/enrollmen t) 06/29/2024 Patient Outreach [address] [address] Marisa Livingston MD Care Coordination ([facility] Lloyd telephone call outreach) 06/29/2024 Patient Outreach [facility] MEDICINE [address] [place] [phone] Marisa Livingston MD 06/21/2024 Patient Outreach [address] [address] Marisa Livingston MD Care Coordination ([facility] Lloyd telephone call outreach) 06/21/[address] [address] Jaki Cruz MD 06/21/[address] [address] Perez Vergara RN Care Management (C3- chart review) 06/18/2024 Orders Only GENERIC EXTERNAL DATA DEPARTMENT Provider, Generic External Data 06/17/2024 3:20 PM EST Office Visit [facility] WALK-IN [address] [address] Jaki Cruz MD Dyspnea on exertion (Primary Dx); Moderate persistent asthma without complication; Cardiac enlargement 06/17/2024 Telephone [facility] [address] [address] Jaki Cruz MD 06/[facility] [address] [address] Bettie Garay RN ED EXPECT 06/17/2024 Orders Only [facility] [address] [address] Jaki Cruz MD Chronic anemia (Primary Dx) 06/17/2024 Telephone [facility] [address] [address] Amirah Pugh, RN Nurse Triage (SOB) 06/10/[address] [address] Marisa Livingston MD Nurse Triage 06/07/[address] [address] Marisa Livingston MD 06/04/[address] [address] Marisa Livingston MD Nurse Triage 06/03/2024 Orders Only [facility] ADULT DENTAL [address] [place] [address] [place] Hagen, DMD 05/27/[address] [address] Marisa Livingston MD 05/26/2024 4:00 PM EST Office Visit [facility] WALK-IN CENTER [address] [place] [address] Joann Sandoval MD Acute severe exacerbation of asthma (Primary Dx) 05/26/2024 Orders Only [facility] External Provider, [facility] 05/26/2024 Telephone [facility] MEDICINE [address] [place] [address] Marisa Livingston MD Nurse Triage 05/20/2024 Telephone [facility] MEDICINE [address] [place] [address] Marisa Livingston MD July recall from Last [...] is your housing situation today? I have yennysky frost 06/29/[address] you [...] 08/06/2024 11:00 AM EDT Office Visit [facility] CHC ADULT DENTAL [address] [place] [address] [place] Hagen, BERNIE [address] [place] [address] 08/06/2024 3:00 PM EDT Clinical Support [facility] DIABETES/NUTRITION [address] [place] [address] [place] [address] 09/22/2024 11:30 AM EDT Telemedicine [facility] [address] [facility] [place] [place] [phone] Marisa Livingston MD [address] [place], [place] [phone] Health Maintenance Due Date Last Done Comments Alcohol/Substance Use Screening 2000 Family Planning (PISQ) 12/06/2003 Hepatitis C Screening 2006 Hepatitis B Vaccines (1 of 3 - 19+ 3-dose series) 12/06/2007 Dental Oral Exam 08/29/2022 02/27/2022 COVID-19 Vaccine (2023- season) 2024 Influenza Vaccine (#1) 2024 , [...] AM EST INFLUENZA A B2 ID NOW (Legal Shine) Routine 06/18/2024 10:52 AM EST BORDETELLA PERTUSSIS [...] included. Sodium 139 135 - 145 mmol/L [facility] Potassium 3.8 3.3 - 5.1 mmol/L [facility] Chloride 109(H) 96 - 108 mmol/L [facility] Carbon Dioxide 25 22 - 29 mmol/L [facility] Anion Gap 9(L) 12 - 20 [facility] Urea Nitrogen (BUN) 8(L) 9 - 16 mg/dL [facility] Creatinine, Serum 0.58 0.5 - 1.4 mg/dL [facility] Estimated Glomerular Filt Rate >60 [facility] Comment:Chronic Kidney Disea se: Estimated GFR < 60 mL/min/1.01t4Ozsmkx Kidney Disease: Estimated GFR < 15 mL/min/1.73m2 Glucose 91 60 - 115 mg/dL [facility] Calcium 9.5 8.4 - 10.2 mg/dL [facility] Blood Venous blood specimen / Unknown 07/22/2024 10:48 AM EST 07/22/2024 11:51 AM EST us Marisa Livingston MD LAB BLOOD ORDERABLES Fin al Result [facility] [address] [place] [phone] * High Sensitivity Troponin I (06/18/2024 4:56 PM EST) TROPONIN I HIGH SENSITIVITY <2.7 <3.5 - 17.0 ng/L [facility] Comment:The Davis high sens itivity Troponin-I results should beused in conjunction with other diagnostic information suchas ECG, clinical observations and information, and patientsymptoms to aid in the diagnosis of PA. 06/18/2024 4:56 PM EST 06/18/2024 4:59 PM EST us Generic External Data Provider LAB BLOOD ORDERAB LES Final Result Performing Organization Address [facility] de Phone Number [facility] [address] [place] [phone] * B Type Natriuretic Peptide (BNP) (06/18/2024 4:56 PM EST) B Type Natriuretic Peptide 11 <100 pg/mL [facility] Comment:For those patients w ho are being treated with Natrecor(nesiritide, recombinant BNP), BNP testing should beperformed at least two hours post treatment in order toensure that only endogenous levels of BNP are detected. 06/18/2024 4:56 PM EST 06/18/2024 4:59 PM EST Generic External Data Provider LAB BLOOD ORDERAB LES Final Result Performing Organization Address [facility] de Phone Number [facility] [address] [place] [phone] * CTA Chest PE Protocal (06/18/2024 3:34 PM EST) Anatomical Region Laterality Modality Body, Chest Computed Tomogra phy 06/18/2024 3:34 PM EST Narrative 06/18/2024 4:43 PM EST ? [facility] ?[address] ?[place] [address] ? CT Scan Report ? Signed ? Patient: Cleo Rock ?MR#: ?? [id number] ? : 1990 ?Acct:[id number] ? Age/Sex: 33 / F ?ADM Date: 01/31/25 ? Loc: HO.ED ? Attending Dr: ? Ordering Physician: Michela Rouse ?? Date of Service: 06/18/24 ?? Procedure(s): CT angio chest PE protocol ?? Accession Number(s): [id number] ? cc: Marisa Livingston MD; Michela Rouse ? Report Number: ?? [id number]: Total DLP = ??266.00 mGy-cm ?? EXAMINATION: [...] embolus or acute aortic syndrome. ?? 2. Tloe-sn-motbfwvr cardiac enlargement with predominantly ?? biventricular dilatation. [...] DD/ 1534 ? TD/TT: 06/18/24 1545 ? Beaver Trapper: ? 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 Armando, Stephania - 06/18/[address] [place] [address] [address] Scan Report Signed Patient: Cleo Rock JMR#: [id number] : 1990Acct:[id number] Age/Sex: 33 / FADM Date: 06/18/24 Loc: .ED Attending Dr: Ordering Physician: Michela Rouse Date of Service: 06/18/24 Procedure(s): CT angio chest PE protocol Accession Number(s): [id number] cc: Marisa Livingston MD; Michela Rouse Report Number: [id number]: Total DLP = 266.00 mGy-cm EXAMINATION: CT [...] pulmonary embolus or acute aortic syndrome. 2. Dpig-pn-cgxzhyzf cardiac enlargement with predominantly biventricular dilatation. 3. [...] 06/18/24 1627 DD/ 1534 TD/TT: 06/18/24 1545 Beaver Trapper: [facility] External Provider IM CT PROCEDURES Final Result * XR Chest 2 Views (06/18/2024 11:06 AM EST) Only the most recent of3 resultswithin the time period is included. Anatomical Region Laterality Modality Chest Radiographic Angelita ging 06/18/2024 11:0 6 AM EST Narrative 06/18/2024 11:19 AM EST ? [facility] ?[address] ?[place] [address] ?XRay Report ? Signed ? Patient: Cleo Rock ?MR#: ?? [id number] ? : 1990 ?Acct:[id number] ? Age/Sex: 33 / F ?ADM Date: 06/18/24 ? Loc: HO.ED ? Attending Dr: ? Ordering Physician: Bay Christina ?? Date of Service: 06/18/24 ?? Procedure(s): XR chest 2V ?? Accession Number(s): [id number] ? cc: Marisa Livingston MD; Bay Christina [...] DD/ 1106 ? TD/TT: 06/18/24 1113 ? Beaver Trapper: ? 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 Stephania Roberts - 06/18/[address] [address] XRay Report Signed Patient: Flynn Rockin R#: [id number] : 1990Acct:[id number] Age/Sex: 33 / FADM Date: 06/18/24 Loc: HO.ED Attending Dr: Ordering Physician: Bay Christina Date of Service: 06/18/24 Procedure(s): XR chest 2V Accession Number(s): [id number] cc: Marisa Livingston MD; Bay Christina EXAMINATION: [...] 06/18/24 1116 DD/ 1106 TD/TT: 06/18/24 1113 Beaver Trapper: [facility] External Provider IMG XR PROCEDURES Final Result * Influenza A B2 ID NOW (Davis) (06/18/2024 10:52 AM EST) IDNOW SERIAL# [id number] [facility] Influenza A Negative Negative [facility] Influenza B2 Negative Negative [facility] Influenza A B2 Note See Note [facility] Comment:The Davis ID NOW In fluenza [...] Final Result Performing Organization Address [facility] Co de Phone Number [facility] [address] [place] [phone] * D Dimer High Sensitivity (06/18/2024 10:52 AM EST) Only the most recent of2 resultswithin the time period is included. D Dimer High Sensitivity 232 NG/ML [facility] Comment:D-DIMER HS REFERENCE RANGENote: Our assay [...] ORDERAB LES Final Result Performing Organization Address [facility] Co de Phone Number [facility] [address] [place] [phone] * COVID-19 ID NOW (DAVIS) (06/18/2024 10:52 AM EST) IDNOW SERIAL# [id number] [facility] COVID-19 TEST Negative Negative [facility] COVID-19 NOTE See Note [facility] Comment: Results are for the identification of SARS-CoV2 RNA. TheSARS-CoV2 RNA is generally detectable in respiratory samplesduring the acute phase of infection. Positive results areindicative of the presence of SARS-CoV-2 RNA; clinicalcorrelation with patient history and other diagnosticinformation is necessary to determine patient infectionstatus. Positive results do not rule out bacterial infectionor co- infection with other viruses.Testing facilities within the [facility] and itsterritories are required to report [...] use by authorized laboratories.Testing performed on the Neosens NOW utilizing NAAT. 06/18/2024 10:5 2 AM EST 06/18/2024 10:56 AM EST us Generic External Data Provider LAB MOLECULAR DELMI GNOSTICS ORDERABLES Final Result [facility] [address] [place] [phone] * (ABNORMAL) CBC auto differential (06/18/2024 10:52 AM EST) Only the most recent of2 resultswithin the time period is included. White Blood Count 6.7 4.8 - 10.8 X10*3/uL [facility] Red Blood Count 4.66 4.20 - 5.50 X10*6/uL [facility] Hemoglobin 9.1(L) 12.0 - 16.0 g/dl [facility] Hematocrit 31.5(L) 37.0 - 47.0 % [facility] Mean Corpuscular Volume 67.6(L) 80.0 - 98.0 fL [facility] Mean Corpuscular Hemoglobin 19.5(L) 27.0 - 33.0 pg [facility] Mean Corpuscular HGB Conc 28.9(L) 31.0 - 35.0 g/dl [facility] Red Cell Distribution Width 19.1(H) 11.0 - 16.0 % [facility] Platelet Count 334 160 - 400 X10*3/uL [facility] Mean Platelet Volume 9.0(L) 9.4 - 12.3 fL [facility] Neutrophils Percent Auto 63.8 45 - 73 % [facility] Imm Gran Pct Auto 0.1 0.0 - 0.4 % [facility] Lymphocytes Percent Auto 24.5 20 - 40 % [facility] Monocytes Percent Auto 6.1 2 - 11 % [facility] Eosinophils Percent Auto 5.2(H) 0 - 4 % [facility] Basophils Percent Auto 0.3 0 - 2 % [facility] NRBC Pct Auto 0.0 0.0 - 0.2 /100WBC [facility] Neutrophils Absolute Auto 4.3 2.0 - 8.3 x10*3/uL [facility] Imm Gran Abs Auto 0.01 0.00 - 0.03 X10*3/uL [facility] Lymphocytes Absolute Auto 1.6 1.2 - 4.9 X10*3/uL [facility] Monocytes Absolute Auto 0.4 0.1 - 1.2 X10*3/uL [facility] Eosinophils Absolute Auto 0.4 0.0 - 0.4 X10*3/uL [facility] Basophils Absolute Auto 0.0 0.0 - 0.2 X10*3/uL [facility] NRBC Abs Auto 0.000 0.0 - 0.012 X10*3/uL [facility] 06/18/2024 10:5 2 AM EST 06/18/2024 10:56 AM EST us Generic External Data Provider LAB BLOOD ORDERAB LES Final Result [facility] [address] [place], [place] [phone] * (ABNORMAL) Prothrombin Time-INR (06/18/2024 10:52 AM EST) Prothrombin Time 13.5(H) 10.9 - 12.4 SEC [facility] INTERNATIONAL NORM RATIO 1.2(H) 0.9 - 1.1 [facility] Comment:INTERNATIONAL NORMAL IZED RATIO (INR) REFERENCE [...] ORDERAB LES Final Result Performing Organization Address [facility] de Phone Number [facility] [address] [place] [phone] * hCG, Total, Quantitative (06/18/2024 10:52 AM EST) HCG Quantitative <2 mIU/mL [facility] Comment:Weeks post LMP Appro ximate hCG(Last Menstrual Period) Range (mIU/ml)3 - 4 weeks 9 - 1304 - 5 weeks 75 - 2,6005 - 6 weeks 850 - 20,8006 - 7 weeks 4000 - 100,2007 - 12 weeks 11,500 - 289,90203 - 16 weeks 18,300 - 137,80604 - 29 weeks (2nd trimester) 1,400 - 53,25475 - 41 weeks (3rd trimester) 940 - [...] ORDERAB LES Final Result Performing Organization Address [facility] Co de Phone Number [facility] [address] [place] [phone] * Pertussis Bordetella toxin (PT) Antibody (IgG), Immunoassay (06/17/2024 3:32 PM EST) [facility] Pertussis Testing 2 IU/mL [facility] Comment: REFERENCE RANGE:: ? Age [...] The indicated PT IgG reference ranges reflect dvf93dd percentile of antibody levels in sera from healthychildren and blood donors; thus, levels above the referencerange suggest recent infection or vaccination within thelast few months.This test was developed and its analytical performancecharacteristics have been determined by [employer].It has not been cleared or approved by FDA. This assay hasbeen validated pursuant to the CLIA regulations and isused for clinical purposes.For additional information, please refer tohttp://education.[employer].Fugoo/faq/TBP387.(This link is being provided for informational/educational purposes only.)THIS TEST WAS PERFORMED AT:[employer] [id number] CELINA COSTA ??[id number] HUSSEIN MD,PHD,MARISOL Blood Venous blood specimen / Unknown 06/17/2024 3:32 PM EST 06/17/2024 3:59 PM EST us Jaki Cruz MD LAB BLOOD ORDERABLES Final Result [facility] [address] [place] [phone] * C-reactive Protein (06/17/2024 3:32 PM EST) [facility] C Reactive Protein <0.10 < or = 0.50 mg/dL [facility] Blood Venous blood specimen / Unknown 06/17/2024 3:32 PM EST 06/17/2024 3:59 PM EST Jaki Cruz MD LAB BLOOD ORDERABLES Final Result Performing Organization Address [facility] Co de Phone Number [facility] [address] [place] [phone] * Influenza B (ID NOW Rapid Molecular) (06/17/2024 2:36 PM EST) [facility] Influenza B Negative Negative, Indeterminate [facility] Swab 06/17/2024 2:36 PM EST Jaki Cruz MD POINT OF CARE TEST ENTER/E DIT ORDERABLES Final Result Performing Organization Address [facility] Co de Phone Number [facility] [address] [place] [phone] * Influenza A (ID NOW Rapid Molecular) (06/17/2024 2:36 PM EST) [facility] Influenza A Negative Negative, Indeterminate [facility] Swab 06/17/2024 2:36 PM EST Jaki Cruz MD POINT OF CARE TEST ENTER/E DIT ORDERABLES Final Result Performing Organization Address [facility] de Phone Number [facility] [address] [place] [phone] * POCT rapid strep A manually resulted (06/17/2024 2:36 PM EST) [facility] Rapid Strep A Screen Negative Negative, None Detected Swab 06/17/2024 2:36 PM EST Jaki Cruz MD POINT OF CARE TEST ENTER/E DIT ORDERABLES Final Result * POCT Rapid Covid-19 BinaxNOW (06/17/2024 2:09 PM EST) Pathologist [facility] Rapid COVID Ag Negative Nares 06/17/2024 2:09 PM EST Jaki Cruz MD POINT OF CARE TEST ENTER/E DIT ORDERABLES Final Result * Strep A Nucleic Acid (05/26/2024 5:39 PM EST) Pathologist [facility] IDNOW SERIAL# [id number] [facility] Strep A Nucleic Acid Negative Negative [facility] Comment:All test results mus t be correlated with clinical findings.This test has not been evaluated for monitoring treatment ofinfection.Additional follow-up testing using the culture method isrequired if the result is negative and clinical symptomspersist, or in the event of an acute rheumatic feveroutbreak. 05/26/2024 5:39 PM EST 05/26/2024 5:46 PM EST Generic External Data Provider LAB MICROBIOLOGY - GENERAL ORDERABLES Final Result [facility] [address] [place] [phone] * (ABNORMAL) SARS-CoV-2 RNA, Influenza A/B, and RSV RNA, Ql NAAT (05/26/2024 5:39 PM EST) Pathologist [facility] Influenza A PCR POSITIVE(A) Negative [facility] Influenza B PCR NEGATIVE Negative [facility] Resp Syncy Virus RNA Qual PCR NEGATIVE Negative [facility] SARS COV2 PCR NEGATIVE Negative [facility] Comment:All test results mus t be [...] use by authorized laboratories.Testing performed on the [employer] GeneXpert utilizingreal-time RT-PCR.All SARS CoV2 and positive influenza A/B results arereported to [facility]. 05/26/2024 5:39 PM EST 05/26/2024 5:46 PM EST us Generic External Data Provider LAB MICROBIOLOGY - GENERAL ORDERABLES Final Result Performing Organization Address City/State/[facility] Co de Phone Number [facility] [address] [place] [phone] * Pap Smear (08/05/2023 3:15 PM EDT) 08/05/2023 3:15 PM EDT 08/07/2023 1:00 PM EDT Narrative [facility] - 08/18/2023 1:17 PM EDT ----- ------- Name: Cleo Rock ? Age/Sex: 32/F ? : 1990 Unit#: [id number] ?? Attend Dr: Amaris Salgado CNM ?Re08/05/23 ?Status: DEP REF ? Location: HO.LNP ?Disch: ? ----- ------- SPEC : [id number] ? RECD: 08/07/23-1300 ? STATUS: ??SOUT ? REQ NUM: [id number] ? MEAGAN: 08/05/23-2048 ? SUBM DR: Amaris Salgado ? ENTERED: ??08/07/23-7418 ?SP TYPE: Pap Smr ?OTHR : Marisa Livingston MD ? ORDERED: ??Pap Smear ? Interpretation ?? Satisfactory for evaluation. ?? Negative for intraepithelial lesion or malignancy. ?HPV mRNA E6/E7: ?NOT DETECTED ? This assay detects E6/E7 viral messenger RNA (mRNA) from 14 high-risk HPV types (16, 18, ?? 31, 33, 35, 39, 45, 51, 52, 56, 58, 59, 66, 68) ?? HPV testing performed by [employer], [place], [place]. ??See reference laboratory ?? portion of the EMR for entire report. ?Clinical Information LMP: 07/17/23 Previous PAP test: 09/17/17, WNL ? Material Received ?? ThinPrep-Cervical Copies To: ?? Marisa Livingston MD ?? [address] ?? [place] [id number] ? Amaris Salgado CNM ?? [address] [facility] ?? [place] [id number] ?? [phone] ----- ------- Signed (signature on file) IDANIA Hutchinson (ASCP) 08/18/23 1317 ? ----- ------- ? END OF REPORT ? us Generic External Data Provider LAB CYTOLOGY GILBERT UGARTE Final Result [facility] [address] [facility] [place] [phone] [phone] * HIV Ab/Ag (IRAJ MARIA) (12/09/2022 1:30 PM EDT) HIV AB/AG Nonreactive Nonreactive [facility] Comment:HIV-1 p24 Ag and/or HIV-1/HIV-2 Ab not detected.A test result that is nonreactive does not exclude thepossibility of exposure to or infection with HIV-1 and/orHIV-2. Nonreactive results in this assay for individualswith prior exposure to HIV-1 and/or HIV-2 may be due toantigen and antibody levels that are below the limit ofdetection of this assay.The [employer] Teacher HIV Ag/Ab Combo assay result andsupplemental assay results should be interpreted inconjunction with the patient's clinical presentation,history and other laboratory results. If the results areinconsistent with clinical evidence, additional testing issuggested to confirm the result. 12/09/2022 1:30 PM EDT 12/09/2022 4:12 PM EDT us Marisa Livingston MD LAB BLOOD ORDERABLES Fin al Result [facility] [address] [place] [phone] * Lipid Panel, Standard (12/09/2022 1:30 PM EDT) Pathologist [facility] Triglycerides 56 mg/dL [facility] Comment:Desirable Triglyceri de: less than 150 mg/dLBorderline High Triglyceride 150-199 mg/dLHigh Triglyceride: 200-499 mg/dLVery High Triglyceride: greater than or equal to 5OO mg/dL Cholesterol 114 mg/dL [facility] Comment:Desirable Cholestero l: less than 200 mg/dLBorderline High Cholesterol: 200-239 mg/dLHigh Cholesterol: greater than 239 mg/dL LDL Cholesterol Calculated 65 mg/dl [facility] Comment:Desirable LDL: less than 100 mg/dLNear Optimal/Above Optimal LDL: 110- 129 mg/dLBorderline High LDL: 130-159 mg/dLHigh LDL: 160-189 mg/dLVery High LDL: greater than or equal to 190 mg/dL HDL Cholesterol 38 mg/dL [facility] Comment:Desirable HDL: great er than 40 mg/dL Note: This HDL assay may give artificially low results in patients with liver disease. 12/09/2022 1:30 PM EDT 12/09/2022 4:12 PM EDT Marisa Livingston MD LAB BLOOD ORDERABLES Fin al Result [facility] [address] [place] [phone] from Last 3 Months or Most Recently Relevant to Health Maintenance Insurance [facility] C3 DENTAL-[facility] MEDICAID STAND ADULT Care Teams Lamina Searcher Relationship Specialty Start Date End Date Marisa Livingston MD [address] [place] [phone] PCP - General Family Medicine 03/12/19 Perez Vergara RN [address] [place] [address] Automotive Electrical FitterBlocker Automatic 06/30/24
--- OUTSIDE RECORDS SUMMARY | 2024-07-22 16:07 | XMS_ITS | Encounter Summary ---
Author Organization [employer] Address [address] [facility] 7 [place] [address] Care Team Providers Care Chick Room Supervisor Name Role Phone Marisa Livingston MD Primary Care Provider + Perez Vergara RN Unavailable [phone] Reason for Visit * Reason Onset Date Comments Appointment Request 07/14/2024 Encounter Details Date Type Department Care Team (Late st Contact Info) Description 07/14/[address] [facility] MEDICINE [address] [place] [address] Marisa Livingston MD [address] [place] [address] Appointment Request Social History Tobacco Use Types [...] AM EDT Office Visit [facility] CHC ADULT DENTAL [address] [place] [address] Berlin Hagen, BERNIE 505 [place] [address] 08/06/2024 3:00 PM EDT Clinical Support [facility] DIABETES/NUTRITION [address] [place] [address] Mandi Pinedo, MEAGAN [address] [place] [address] 09/22/2024 11:30 AM EDT Telemedicine [facility] MEDICINE [address] [place] [address] Marisa Livingston MD [address] [place] [address] documented as of this encounter Visit Diagnoses Not on filedocumented in this encounter Additional Health Concerns Assessment Noted Time PHQ-9 Depression Total Score: 17 025 9:47 AM EST documented as of this encounter Care Teams Chick Room Supervisor Relationship Specialty Start Date End Date Marisa Livingston MD [address] [place] [address] PCP - General Family Medicine 03/12/19 Perez Vergara RN [address] [place] [address] Motorcycle FabricatorMechanical Systems Engineer 06/30/24 documented as of this encounter
--- OUTSIDE RECORDS SUMMARY | 2024-07-22 16:07 | XMS_ITS | Encounter Summary ---
Author Organization [employer] Address 75 [facility] 7 [place] [address] Care Team Providers Care Mid Level Practitioner Name Role Phone Marisa Livingston MD Primary Care Provider + Perez Vergara RN Unavailable [phone] Reason for Visit * Reason Onset Date Comments Results 07/22/2024 Encounter Details Date Type Department Care Team (Late st Contact Info) Description 07/22/2024 Telephone [facility] MEDICINE [address] [place] [address] Marisa Livingston MD [address] [place], [place] [phone] Results Social History Tobacco Use Types Packs/Day Years [...] Telephone Encounter - Gem Aguila RN - 07/22/2024 3:52 PM EST Images from the original note were not included. TC placed to patient [phone] to inform of below message. Patient verbalized understanding and did not have any further questions/concerns. Patient to f/u PRN. Marisa Livingston MD [facility] Red Team Nurses Labs on 07/22/2024 were normal, no evidence of SUSANNA or electrolyte disbalance test. Please tell her tocontinue Lasix and other medications and follow-up with cardiology and wool grower. documented in this encounter Plan of Treatment Upcoming Encounters Date Type Department Care Team (Late st Contact Info) Description 08/06/2024 11:00 AM EDT Office Visit [facility] CHC ADULT DENTAL [address] [place] [address] Berlin Hagen, DMD [address] [place] [address] 08/06/2024 3:00 PM EDT Clinical Support [facility] DIABETES/NUTRITION [address] [place] [address] [place], [place] [phone] 09/22/2024 11:30 AM EDT Telemedicine [facility] MEDICINE [address] [place], [place] [phone] Marisa Livingston MD [address] [place], [place] [phone] documented as of this encounter Visit Diagnoses Not on filedocumented in this encounter Additional Health Concerns Assessment Noted Time PHQ-9 Depression Total Score: 17 025 9:47 AM EST documented as of this encounter Care Teams Mid Level Practitioner Relationship Specialty Start Date End Date Marisa Livingston MD [address] [place] [address] [phone] PCP - General Family Medicine 03/12/19 Perez Vergara, CHAPITO [address] [place] [address] Hide ExaminerTrademark Affixer 06/30/24 documented as of this encounter
--- OUTSIDE RECORDS SUMMARY | 2024-07-22 16:07 | XMS_ITS | Encounter Summary ---
Author Organization [employer] Address [address] [facility] [address], [place] [address] Care Team Providers Care Nurse Ldr Name Role Phone Marisa Livingston MD Primary Care Provider + Perez Vergara RN Unavailable [phone] Reason for Visit * Reason Onset Date Comments Appointment 07/12/2022 Encounter Details Date Type Department Care Team (Late st Contact Info) Description 07/12/2022 Telephone [facility] ADULT DENTAL [address] [place] [address] Yeison Arnold, DMD [address] [place] [address] Appointment Social History Tobacco Use Types Packs/Day [...] [facility] CHC ADULT D[facility] 505 [place], [place] [phone] Berlin Hagen, BERNIE 505 [place] [address] 08/06/2024 3:00 PM EDT Clinical Support [facility] DIABETES/NUTRITION 230 [place] [address] Mandi Pinedo, RD 230 [place] [address] 09/22/2024 11:30 AM EDT Telemedicine [facility] MEDICINE 230 [place] [address] Marisa Livingston MD 230 [place] [address] documented as of this encounter Visit Diagnoses Not on filedocumented in this encounter Additional Health Concerns Assessment Noted Time PHQ-9 Depression Total Score: 4 07/03/19 23 10:39 AM EST documented as of this encounter Care Teams Nurse Ldr Relationship Specialty Start Date End Date Marisa Livingston MD 230 [place] [address] PCP - General Family Medicine 03/12/19 Perez Vergara RN 505 [place] [address] Floor AttendantGeotechnician 06/30/24 documented as of this encounter
--- OUTSIDE RECORDS SUMMARY | 2024-07-22 16:07 | XMS_ITS | Encounter Summary ---
Author Organization [employer] Address [address] [place] [address] [place], [place] [address] Care Team Providers Care Deburring And Tooling Machine Operator Name Role Phone Marisa Livingston MD Primary Care Provider + Perez Vergara RN Unavailable [phone] Reason for Visit * Reason Onset Date Comments Care Management 06/30/2024 C3CM- initial as sessment/enrollment Encounter Details Date Type Department Care Team ([facility] st Contact Info) Description 06/30/2024 Telephone [facility] MEDICINE [address] [place] [address] Marisa Livingston MD 230 [place] [address] Care Management (C3- initial assessment/enrollment) Social History [...] report being followed by behavioral health with [facility]. She is established by a therapist and psychiatrist which she sees every 2 weeks. Pt reports doing well emotionally today, denies any SI/HI. She states she is able to contact her therapist as needed and confirms having crisis # to use as needed. Patient being seen by a neurologist about 1-2 years ago for her migraines. Patient reports being seen at [facility] ED on 06/18/24 [...] office. CM noted no pending appointment in [facility]. Patient is agreeable for CM to call these offices to schedule follow up appointments. Patient denies any vision or dental concerns. Patient uses glasses and last eye exam was last year here at [facility]. Patient reports last dental exam here at [facility] about 5 months ago. Patient is mostly independent with ADL's. She states that at time she would need help with cleaning due to extreme lower back pain.Patient denies use or need of any assistive devices. Per pt, was prescribed a nebulizer machine in the past that she never picked up. Patient states that prescription has but agreed to consult with roof truss detailer tomorrow. She report gaining weight due to [...] understanding, and able to repeat back to quality analyst/technical writer. A follow up call will be placed within 10 days, patient agrees with plan. documented in this encounter Plan of Treatment Upcoming Encounters Date Type Department Care Team (Late st Contact Info) Description 08/06/2024 11:00 AM EDT Office Visit [facility] CHC ADULT DENTAL [address] [place], [place] [phone] Berlin Hagen, DMD 505 [place] [address] 08/06/2024 3:00 PM EDT Clinical Support [facility] DIABETES/NUTRITION 230 [place] [address] [place] [address] 09/22/2024 11:30 AM EDT Telemedicine [facility] MEDICINE [address] [place] [address] Marisa Livingston MD 230 [place] [address] documented as of this encounter Visit Diagnoses Not on filedocumented in this encounter Additional Health Concerns Assessment Noted Time PHQ-9 Depression Total Score: 17 024 9:31 AM EST documented as of this encounter Care Teams Deburring And Tooling Machine Operator Relationship Specialty Start Date End Date Marisa Livingston MD 230 [place] [address] PCP - General Family Medicine 03/12/19 Perez Vergara RN 505 [place] [address] Education DeanDeliverer Outside 06/30/24 documented as of this encounter
--- OUTSIDE RECORDS SUMMARY | 2024-07-22 16:07 | XMS_ITS | Encounter Summary ---
Author Organization [employer] Address 75 [facility] 7 [place] [address] Care Team Providers Care Traveling Missionary Name Role Phone Marisa Livingston MD Primary Care Provider + Encounter Details Date Type Department Care Team ([facility] st Contact Info) Description 06/29/2024 Patient Outreach [facility] MEDICINE 230 [place] [address] Marisa Livingston MD 230 [place] [address] Social History Tobacco Use Types Packs/Day Years [...] Description 08/06/2024 11:00 AM EDT Office Visit [facility] CHC ADULT DENTAL [address] [place] [address] Berlin Hagen, BERNIE [address] [place] [address] 08/06/2024 3:00 PM EDT Clinical Support [facility] DIABETES/NUTRITION 230 [place] [address] [place] [address] 09/22/2024 11:30 AM EDT Telemedicine [facility] MEDICINE 230 [place] [address] Marisa Livingston MD 230 [place] [address] documented as of this encounter Visit Diagnoses Not on filedocumented in this encounter Additional Health Concerns Assessment Noted Time PHQ-9 Depression Total Score: 17 024 9:31 AM EST documented as of this encounter Care Teams Traveling Missionary Relationship Specialty Start Date End Date Marisa Livingston MD 230 [place] [address] PCP - General Family Medicine 03/12/19 documented as of this encounter
--- OUTSIDE RECORDS SUMMARY | 2024-07-22 16:07 | XMS_ITS | Encounter Summary ---
Author Organization [employer] Address 75 [facility] 7 [place] [address] Care Team Providers Care Rn Gynecology Name Role Phone Marisa Livingston MD Primary Care Provider + Perez Vergara RN Unavailable [phone] Reason for Visit * Reason Comments Med Refill Encounter Details Date Type Department Care Team (Late st Contact Info) Description 03/04/2024 Refill [facility] MEDICINE 230 [place] [address] Marisa Livingston MD 230 [place] [address] Social History Tobacco Use Types Packs/Day Years [...] [facility] [address] [place] [address] Berlin Hagen, DMD 505 [place] [address] 08/06/2024 3:00 PM EDT Clinical Support [facility] DIABETES/NUTRITION 230 [place] [address] Mandi Pinedo, RD 230 [place] [address] 09/22/2024 11:30 AM EDT Telemedicine [facility] MEDICINE [address] [place] [address] Marisa Livingston MD [address] [place] [address] documented as of this encounter Visit Diagnoses Not on filedocumented in this encounter Additional Health Concerns Assessment Noted Time PHQ-9 Depression Total Score: 17 024 9:31 AM EST documented as of this encounter Care Teams Rn Gynecology Relationship Specialty Start Date End Date Marisa Livingston MD [address] [place] [address] PCP - General Family Medicine 03/12/19 Perez Vergara RN [address] [place] [address] IRAJ Black [address] Sales Floor Team LeaderMaterial Cutter 06/30/24 documented as of this encounter
--- OUTSIDE RECORDS SUMMARY | 2024-07-22 16:07 | XMS_ITS | Encounter Summary ---
Author Organization [employer] Address 75 [facility] 7 [place] [address] Care Team Providers Care Marketing Coordinator Name Role Phone Marisa Livingston MD Primary Care Provider + Perez Vergara RN Unavailable [phone] Reason for Visit * Reason Comments Med Refill Encounter Details Date Type Department Care Team (Late st Contact Info) Description 05/27/2024 Refill [facility] MEDICINE [address] [place] [address] Marisa Livingston MD 230 [place] [address] Social History Tobacco Use Types Packs/Day Years [...] Description 08/06/2024 11:00 AM EDT Office Visit [facility] CHC ADULT DENTAL [address] [place] [address] Berlin Hagen, DMD 505 [place] [address] 08/06/2024 3:00 PM EDT Clinical Support [facility] DIABETES/NUTRITION [address] [place] [address] Mandi Pinedo, RD 230 [place] [address] 09/22/2024 11:30 AM EDT Telemedicine [facility] MEDICINE [address] [place] [address] Marisa Livingston MD [address] [place] [address] documented as of this encounter Visit Diagnoses Not on filedocumented in this encounter Additional Health Concerns Assessment Noted Time PHQ-9 Depression Total Score: 17 024 9:31 AM EST documented as of this encounter Care Teams Marketing Coordinator Relationship Specialty Start Date End Date Marisa Livingston MD [address] [place] [address] PCP - General Family Medicine 03/12/19 Perez Vergara RN [address] [place] [address] IRAJ Black [address] Market SuperintendentActing Professor 06/30/24 documented as of this encounter
--- OUTSIDE RECORDS SUMMARY | 2024-07-22 16:07 | XMS_ITS | Encounter Summary ---
Author Organization [employer] Address [address] [place] [address] 7 [place] [address] Care Team Providers Care Yarder Name Role Phone Marisa Livingston MD Primary Care Provider + Perez Vergara RN Unavailable Reason for Visit * Reason Comments Care Coordination [facility] Stacey soliman telephone call outreach Encounter Details Date Type Department Care Team (Latest Contact Info) Description 07/14/2024 Patient Outreach [facility] [address] [place] [address] Marisa Livingston MD 230 [place] [address] Care Coordination [facility] telephone call outreach) Social History [...] outbound call to patient introducing herself from [facility] CM Department, in regards to offering CM-CHW program services. Patient's name and was confirmed. Patient agrees to participate in CHW- program for SDOH needs. SDOH screening completed: 07/14/24, CHW spoke to patient she is backed up with electricity and water bill, CHW recommended for her to apply forRaft program at [facility], she did apply for VOC, but she is still waiting to see if she is approved. CHW reinforced direct contact information for any additional questions or concerns and extended clinic hours on Mondays and Wednesdays, and Walk-In Urgent Care Located in [facility].Patient provided with after-hours line for [facility], , which offer night time triage serviceand option to transfer to substance addiction coordinator provider if needed. Patient verbalizes understanding, and able torepeat back to telegraphic typewriter repairer. documented in this encounter Plan of Treatment Upcoming Encounters Date Type Department Care Team (Late st Contact Info) Description 08/06/2024 11:00 AM EDT Office Visit [facility] CHC ADULT DENTAL [address] [facility] [facility] [place] [address] Berlin Hagen, DMD 505 [place] [address] 08/06/2024 3:00 PM EDT Clinical Support [facility] DIABETES/NUTRITION [address] [place] [address] [place] [address] 09/22/2024 11:30 AM EDT Telemedicine [facility]IC[facility] [address] [place] [address] Marisa Livingston MD [address] [place] [address] documented as of this encounter Visit Diagnoses Not on filedocumented in this encounter Additional Health Concerns Assessment Noted Time PHQ-9 Depression Total Score: 17 025 9:47 AM EST documented as of this encounter Care Teams Yarder Relationship Specialty Start Date End Date Marisa Livingston MD 230 [place] [address] PCP - General Family Medicine 03/12/19 Perez Vergara RN 505 [place] [address] Media Center AssistantWinderman 06/30/24 documented as of this encounter
--- OUTSIDE RECORDS SUMMARY | 2024-07-22 16:08 | XMS_ITS | Encounter Summary ---
Author Organization [employer] Address [address] [place] [address] 7 [place] [address] Care Team Providers Care Residential Mortgage Manager Name Role Phone Marisa Livingston MD Primary Care Provider + Perez Vergara RN Unavailable [phone] Reason for Visit * Reason Onset Date Comments Care Management 07/14/2024 C3CM- f/u call Encounter Details Date Type Department Care Team ([facility] st Contact Info) Description 07/14/2024 Telephone [facility] MEDICINE 230 [place], [place] [phone] Marisa Livingston MD [address] [place] [address] Care Management (C3CM- f/u call) Social History [...] provided on Walk-In Urgent Care located in [facility] of [facility]. Patient provided with after-hours line for [facility], , which offer night time triage service and option to transfer to gun synchronizer provider if needed. Patient verbalizes understanding, and able to repeat back to freelance writer. A follow up call will be placed within 10 days, patientagrees with plan. documented in this encounter Plan of Treatment Upcoming Encounters Date Type Department Care Team (Late st Contact Info) Description 08/06/2024 11:00 AM EDT Office Visit [facility] CHC ADULT DENTAL [address] [place], [place] [phone] Berlin Hagen, BERNIE [address] [place] [address] 08/06/2024 3:00 PM EDT Clinical Support [facility] DIABETES/NUTRITION [address] [place] [address] Mandi Pinedo, MEAGAN 230 [place] [address] 09/22/2024 11:30 AM EDT Telemedicine [facility] MEDICINE [address] [place] [address] Marisa Livingston MD [address] [place] [address] documented as of this encounter Visit Diagnoses Not on filedocumented in this encounter Additional Health Concerns Assessment Noted Time PHQ-9 Depression Total Score: 17 025 9:47 AM EST documented as of this encounter Care Teams Residential Mortgage Manager Relationship Specialty Start Date End Date Marisa Livingston MD [address] [place] [address] PCP - General Family Medicine 03/12/19 Perez Vergara RN [address] [place] [address] Crisis Mental Health TherapistSplitting Machine Operator Helper 06/30/24 documented as of this encounter
--- OUTSIDE RECORDS SUMMARY | 2024-07-22 16:08 | XMS_ITS | Encounter Summary ---
Author Organization [employer] Address 75 [facility] 7 [place] [address] Care Team Providers Care Professor Of Family Medicine Name Role Phone Marisa Livingston MD Primary Care Provider + Perez Vergara RN Unavailable [phone] Reason for Visit * Reason Onset Date Comments Chart prep 07/01/2024 Encounter Details Date Type Department Care Team (Late st Contact Info) Description 07/01/2024 Telephone [facility] MEDICINE [address] [place] [address] Marisa Livingston MD [address] [place] [address] Chart prep Social History Tobacco Use Types [...] [facility] [address] [place] [address] Berlin Hagen, DMD [address] [place] [address] 08/06/2024 3:00 PM EDT Clinical Support [facility] DIABETES/NUTRITION [address] [place] [address] Mandi Pinedo, MEAGAN [address] [place] [address] 09/22/2024 11:30 AM EDT Telemedicine [facility] MEDICINE [address] [place] [address] Marisa Livingston MD [address] [place] [address] documented as of this encounter Visit Diagnoses Not on filedocumented in this encounter Additional Health Concerns Assessment Noted Time PHQ-9 Depression Total Score: 17 024 9:31 AM EST documented as of this encounter Care Teams Professor Of Family Medicine Relationship Specialty Start Date End Date Marisa Livingston MD [address] [place] [address] PCP - General Family Medicine 03/12/19 Perez Vergara RN [address] [place] [address] High School CoachAppraiser Boats And Marine 06/30/24 documented as of this encounter
--- OUTSIDE RECORDS SUMMARY | 2024-07-22 16:08 | XMS_ITS | Encounter Summary ---
Author Organization [employer] Address 75 [facility] 7 [place] [address] Care Team Providers Care Station Engineer Name Role Phone Marisa Livingston MD Primary Care Provider + Perez Vergara RN Unavailable [phone] Reason for Visit * Reason Onset Date Comments Appointment Confirmation 07/14/2024 Encounter Details Date Type Department Care Team (Late st Contact Info) Description 07/14/2024 Telephone [facility] MEDICINE [address] [place] [address] Marisa Livingston MD [address] [place] [address] Appointment Confirmation Social History Tobacco Use Types [...] 07/14/2024 10:16 AM EST Tc to [facility] to confirm any upcoming appt for pt. Spoke to Yuni who stated pt is scheduled 07/16/24 at 1:20 pm with hematology and 07/16/24 at 10:00 am for echo. documented in this encounter Plan of Treatment Upcoming Encounters Date Type Department Care Team (Late st Contact Info) Description 08/06/2024 11:00 AM EDT Office Visit [facility] CHC ADULT DENTAL [address] [place] [address] Berlin Hagen, DMD [address] [place] [address] 08/06/2024 3:00 PM EDT Clinical Support [facility] DIABETES/NUTRITION [address] [place] [address] [place] [address] 09/22/2024 11:30 AM EDT Telemedicine [facility] MEDICINE [address] [place] [address] Marisa Livingston MD [address] [place], [place] [phone] documented as of this encounter Visit Diagnoses Not on filedocumented in this encounter Additional Health Concerns Assessment Noted Time PHQ-9 Depression Total Score: 17 025 9:47 AM EST documented as of this encounter Care Teams Station Engineer Relationship Specialty Start Date End Date Marisa Livingston MD [address] [place], [place] [phone] PCP - General Family Medicine 03/12/19 Perez Vergara, CHAPITO [address] [place] [address] Glove Parts CutterTrimming Machine Set Up Operator 06/30/24 documented as of this encounter
--- OUTSIDE RECORDS SUMMARY | 2024-07-22 16:08 | XMS_ITS | Encounter Summary ---
Author Organization [employer] Address 75 [facility] 7 [place] [address] Care Team Providers Care Relations Specialist Name Role Phone Marisa Livingston MD Primary Care Provider + Perez Vergara RN Unavailable [phone] Reason for Visit * Reason Onset Date Comments no show 07/02/2024 Encounter Details Date Type Department Care Team (Late st Contact Info) Description 07/02/2024 Telephone [facility] MEDICINE [address] [place] [address] Marisa Livingston MD [address] [place] [address] no show Social History Tobacco Use Types [...] [facility] CHC ADULT DENTAL [address] [place] [address] Berlin Hagen, BERNIE [address] [place] [address] 08/06/2024 3:00 PM EDT Clinical Support [facility] DIABETES/NUTRITION [address] [place] [address] [place] [address] 09/22/2024 11:30 AM EDT Telemedicine [facility] MEDICINE [address] [place] [address] Marisa Livingston MD [address] [place] [address] documented as of this encounter Visit Diagnoses Not on filedocumented in this encounter Additional Health Concerns Assessment Noted Time PHQ-9 Depression Total Score: 17 024 9:31 AM EST documented as of this encounter Care Teams Relations Specialist Relationship Specialty Start Date End Date Marisa Livingston MD [address] [place] [address] PCP - General Family Medicine 03/12/19 Perez Vergara RN [address] [place] [address] District RangerHeating And Cooling Systems Engineer 06/30/24 documented as of this encounter
--- OUTSIDE RECORDS SUMMARY | 2024-07-22 16:08 | XMS_ITS | Encounter Summary ---
Author Organization [employer] Address [address] [place] [address] 7 [place] [address] Care Team Providers Care Thermite Welder Name Role Phone Marisa Livingston MD Primary Care Provider + Perez Vergara RN Unavailable [phone] Encounter Details Date Type Department Care Team (Latest Contact Info) Description 03/26/2019 Abstract [facility] CONVERSIONS Dental, Provider, DDS Social History [...] Description 08/06/2024 11:00 AM EDT Office Visit [facility] CHC ADULT DENTAL [address] [place] [address] Berlin Hagen, DMD [address] [place] [address] 08/06/2024 3:00 PM EDT Clinical Support [facility] DIABETES/NUTRITION [address] [place] [address] Mandi Pinedo, MEAGAN [address] [place] [address] 09/22/2024 11:30 AM EDT Telemedicine [facility] MEDICINE [address] [place] [address] Marisa Livingston MD [address] [place] [address] documented as of this encounter Visit Diagnoses Not on filedocumented in this encounter Care Teams Thermite Welder Relationship Specialty Start Date End Date Marisa Livingston MD [address] [place] [address] PCP - General Family Medicine 03/12/19 Perez Vergara RN [address] [place] [address] Prototype Assembler ElectronicsFastener Sewing Machine Operator 06/30/24 documented as of this encounter
--- OUTSIDE RECORDS SUMMARY | 2024-07-22 16:08 | XMS_ITS | Encounter Summary ---
Author Organization [employer] Address [address] [place] [address] 7 [place] [address] Care Team Providers Care Principal Clerk Typist Name Role Phone Marisa Livingston MD Primary Care Provider + Perez Vergara RN Unavailable [phone] Encounter Details Date Type Department Care Team (Latest Contact Info) Description 02/27/2022 Abstract [facility] CONVERSIONS Dental, Provider, DDS Social History Tobacco [...] 11:00 AM EDT Office Visit [facility] CHC ADULT DENTAL [address] [place] [address] Berlin Hagen, DMD 505 [place] [address] 08/06/2024 3:00 PM EDT Clinical Support [facility] DIABETES/NUTRITION 230 [place] [address] Mandi Pinedo, RD 230 [place] [address] 09/22/2024 11:30 AM EDT Telemedicine [facility] MEDICINE [address] [place] [address] Marisa Livingston MD 230 [place] [address] documented as of this encounter Visit Diagnoses Not on filedocumented in this encounter Care Teams Principal Clerk Typist Relationship Specialty Start Date End Date Marisa Livingston MD 230 [place] [address] PCP - General Family Medicine 03/12/19 Perez Vergara RN [address] [place] [address] Container Packer OperatorPoultry Pinner 06/30/24 documented as of this encounter
--- OUTSIDE RECORDS SUMMARY | 2024-07-22 16:08 | XMS_ITS | Encounter Summary ---
Author Organization [employer] Address 75 [facility] 7 [place] [address] Care Team Providers Care Commercial Fisher Name Role Phone Marisa Livingston MD Primary Care Provider + Perez Vergara RN Unavailable [phone] Reason for Visit * Reason Onset Date Comments Appointment Request 07/09/2024 Encounter Details Date Type Department Care Team (Late st Contact Info) Description 07/09/2024 Telephone [facility] MEDICINE [address] [place] [address] Marisa Livingston MD [address] [place] [address] Appointment Request Social History Tobacco Use Types [...] Description 08/06/2024 11:00 AM EDT Office Visit [facility] CHC ADULT DENTAL 505 [place] [address] Berlin Hagen, BERNIE [address] [place] [address] 08/06/2024 3:00 PM EDT Clinical Support [facility] DIABETES/NUTRITION 230 [place] [address] [place] [address] 09/22/2024 11:30 AM EDT Telemedicine [facility] MEDICINE [address] [place], [place] [phone] Marisa Livingston MD 230 [place] [address] documented as of this encounter Visit Diagnoses Not on filedocumented in this encounter Additional Health Concerns Assessment Noted Time PHQ-9 Depression Total Score: 17 024 9:31 AM EST documented as of this encounter Care Teams Commercial Fisher Relationship Specialty Start Date End Date Marisa Livingston MD [address] [place], [place] [phone] PCP - General Family Medicine 03/12/19 Perez Vergara RN [address] [place] [address] Plastic MolderMultiple Spindle Router Operator 06/30/24 documented as of this encounter
--- OUTSIDE RECORDS SUMMARY | 2024-07-22 16:08 | XMS_ITS | Encounter Summary ---
Author Organization [employer] Address [address] [facility] [address] 7t [place] [address] Care Team Providers Care Sheet Metal Duct Installer Helper Name Role Phone Marisa Livingston MD Primary Care Provider + Perez Vergara RN Unavailable Encounter Details Date Type Department Care Team [...] 11:00 AM EDT Office Visit [facility] CHC ADULT DENTAL 505 [place] [address] Berlin Hagen, BERNIE 505 [place] [address] 08/06/2024 3:00 PM EDT Clinical Support [facility] DIABETES/NUTRITION 230 [place] [address] Mandi Pinedo, MEAGAN [address] [place] [address] 09/22/2024 11:30 AM EDT Telemedicine [facility] MEDICINE [address] [place] [address] Marisa Livingston MD 230 [place] [address] documented as of this encounter Visit Diagnoses Not on filedocumented in this encounter Additional Health Concerns Assessment Noted Time PHQ-9 Depression Total Score: 17 025 9:47 AM EST documented as of this encounter Care Teams Sheet Metal Duct Installer Helper Relationship Specialty Start Date End Date Marisa Livingston MD [address] [place] [address] PCP - General Family Medicine 03/12/19 Perez Vergara RN [address] [place] [address] [place] [address] Derrick ManSourcing Internship 06/30/24 documented as of this encounter
--- OUTSIDE RECORDS SUMMARY | 2024-07-22 16:08 | XMS_ITS | Encounter Summary ---
Author Organization [employer] Address [address] [place] [address] 7 [place] [address] Care Team Providers Care Toe Former Name Role Phone Marisa Livingston MD Primary Care Provider + Perez Vergara RN Unavailable [phone] Encounter Details Date Type Department Care Team (Late st Contact Info) Description 06/27/2022 Abstract [facility] ADULT DENTAL [address] [place] [address] Jeramie Treadwell DDS [address] [place] [address] Social History Tobacco Use Types Packs/Day Years [...] Description 08/06/2024 11:00 AM EDT Office Visit [facility] ADULT DENTAL 505 [place], [place] [phone] Berlin Hagen DMD 505 [place] [address] 08/06/2024 3:00 PM EDT Clinical Support [facility] DIABETES/NUTRITION [address] [place] [address] [place] [address] 09/22/2024 11:30 AM EDT Telemedicine [facility] MEDICINE [address] [place] [address] Marisa Livingston MD 230 [place], [place] [phone] documented as of this encounter Visit Diagnoses Not on filedocumented in this encounter Care Teams Toe Former Relationship Specialty Start Date End Date Marisa Livingston MD [address] [place], [place] [phone] PCP - General Family Medicine 03/12/19 Perez Vergara, CHAPITO 505 [place] [address] Bakery DecoratorFish House Worker 06/30/24 documented as of this encounter
--- OUTSIDE RECORDS SUMMARY | 2024-07-22 16:08 | XMS_ITS | Encounter Summary ---
Author Organization [employer] Address 75 [facility] 7 [place] [address] Care Team Providers Care Tub Chucker Name Role Phone Marisa Livingston MD Primary Care Provider + Perez Vergara RN Unavailable [phone] Reason for Visit * Reason Onset Date Comments Chart prep 07/07/2024 Encounter Details Date Type Department Care Team (Late st Contact Info) Description 07/07/2024 Telephone [facility] MEDICINE [address] [place] [address] Marisa Livingston MD 230 [place] [address] Chart prep Social History Tobacco Use Types [...] encounter Miscellaneous Notes * Telephone Encounter - Dankia Chisholm [place] - 07/07/2024 11:01 AM EST Chart Prep Labs: done Images: done Vaccines due: yes Referrals: pending appt Screenings: N/A Overdue care gaps: PHQ-9 documented in this encounter Plan of Treatment Upcoming Encounters Date Type Department Care Team (Late st Contact Info) Description 08/06/2024 11:00 AM EDT Office Visit [facility] CHC ADULT DENTAL [address] [place] [address] Berlin Hagen, DMD [address] [place] [address] 08/06/2024 3:00 PM EDT Clinical Support [facility] DIABETES/NUTRITION [address] [place] [address] Mandi Pinedo, MEAGAN [address] [place] [address] 09/22/2024 11:30 AM EDT Telemedicine [facility] MEDICINE [address] [place] [address] Marisa Livingston MD [address] [place] [address] documented as of this encounter Visit Diagnoses Not on filedocumented in this encounter Additional Health Concerns Assessment Noted Time PHQ-9 Depression Total Score: 17 024 9:31 AM EST documented as of this encounter Care Teams Tub Chucker Relationship Specialty Start Date End Date Marisa Livingston MD [address] [place] [address] PCP - General Family Medicine 03/12/19 Perez Vergara RN [address] [place] [address] Flat Bed OperatorManager Operating 06/30/24 documented as of this encounter
--- OUTSIDE RECORDS SUMMARY | 2024-07-22 16:08 | XMS_ITS | Encounter Summary ---
Author Organization [employer] Address 75 [facility] 7 [place] [address] Care Team Providers Care Aquatics Assistant Department Head Name Role Phone Marisa Livingston MD Primary Care Provider + Perez Vergara RN Unavailable [phone] Reason for Visit * Reason Onset Date Comments Appointment Request 07/09/2024 Encounter Details Date Type Department Care Team (Late st Contact Info) Description 07/09/2024 Telephone [facility] MEDICINE [address] [place] [address] Marisa Livingston MD 230 [place] [address] Appointment Request Social History Tobacco Use Types [...] to reschedule appt with pcp. Contact pt, urdu documented in this encounter Plan of Treatment Upcoming Encounters Date Type Department Care Team ([facility] st Contact Info) Description 08/06/2024 11:00 AM EDT Office Visit [facility] CHC ADULT DENTAL 505 [place] [address] Berlin Hagen, DMD [address] [place] [address] 08/06/2024 3:00 PM EDT Clinical Support [facility] DIABETES/NUTRITION [address] [place] [address] Mandi Pinedo, MEAGAN [address] [place] [address] 09/22/2024 11:30 AM EDT Telemedicine [facility] MEDICINE [address] [place] [address] Marisa Livingston MD 230 [place] [address] documented as of this encounter Visit Diagnoses Not on filedocumented in this encounter Additional Health Concerns Assessment Noted Time PHQ-9 Depression Total Score: 17 024 9:31 AM EST documented as of this encounter Care Teams Aquatics Assistant Department Head Relationship Specialty Start Date End Date Marisa Livingston MD 230 [place] [address] PCP - General Family Medicine 03/12/19 Perez Vergara RN [address] [place] [address] Stem Cleaning Machine FeederStippler 06/30/24 documented as of this encounter
--- OUTSIDE RECORDS SUMMARY | 2024-07-22 16:08 | XMS_ITS | Encounter Summary ---
Author Organization [employer] Address 75 [facility] 7 [place] [address] Care Team Providers Care Trim Machine Adjuster Name Role Phone Marisa Livingston MD Primary Care Provider + Perez Vergara RN Unavailable [phone] Reason for Visit * Reason Onset Date Comments Chart prep 07/09/2024 Encounter Details Date Type Department Care Team (Late st Contact Info) Description 07/09/2024 Telephone [facility] MEDICINE [address] [place] [address] Marisa Livingston MD 230 [place] [address] Chart prep Social History Tobacco Use Types [...] Description 08/06/2024 11:00 AM EDT Office Visit [facility] CHC ADULT DENTAL [address] [place] [address] Berlin Hagen, DMD [address] [place] [address] 08/06/2024 3:00 PM EDT Clinical Support [facility] DIABETES/NUTRITION [address] [place] [address] Mandi Pinedo, MEAGAN [address] [place] [address] 09/22/2024 11:30 AM EDT Telemedicine [facility] MEDICINE [address] [place] [address] Marisa Livingston MD 230 [place] [address] documented as of this encounter Visit Diagnoses Not on filedocumented in this encounter Additional Health Concerns Assessment Noted Time PHQ-9 Depression Total Score: 17 024 9:31 AM EST documented as of this encounter Care Teams Trim Machine Adjuster Relationship Specialty Start Date End Date Marisa Livingston MD [address] [place] [address] PCP - General Family Medicine 03/12/19 Perez Vergara RN [address] [place] [address] Manager AnalyticalDirector Adult 06/30/24 documented as of this encounter
--- OUTSIDE RECORDS SUMMARY | 2024-07-22 16:08 | XMS_ITS | Encounter Summary ---
Author Organization [employer] Address [address] [place] [address] [address] [facility] [place] [address] Care Team Providers Care Trim Installer Name Role Phone Marisa Livingston MD Primary Care Provider + Perez Vergara RN Unavailable [phone] Reason for Referral * Consultation (Routine) - Authorized Specialty Diagnoses / Procedures Referred By Nadya t Referred To Contact Nutrition Diagnoses Obesity due to excess calories without serious comorbidity, unspecified class Marisa Livingston MD [address] [place] [address] Phone: tel: fax: Referral ID Status Reason Start Date Expiration Date Visits Requested Visits Authorized [id number] Authorized Consult and Treat 07/14/2024 07/14/2025 1 1 * Consultation (Routine) - Authorized Specialty Diagnoses / Procedures Referred By Contdaniela t Referred To Contact Obstetrics and Gynecology Diagnoses Menorrhagia with regular cycle Marisa Livingston MD [address] [place] [address] Phone: tel: fax: [address] Phone: tel: fax: Referral ID Status Reason Start Date Expiration Date Visits Requested Visits Authorized [id number] Authorized Specialty Services Required 07/16/2024 07/16/2025 9 9 Reason for Visit * Reason Comments Asthma Encounter Details Date Type Department Care Team (Late st Contact Info) Description 07/14/2024 10:00 AM EST Telemedicine [facility] MEDICINE [address] [place] [address] Marisa Livingston MD [address] [place] [address] Moderate persistent asthma without complication (Primary Dx); [...] started on Advair and Albuterol seen by Stapling Machine Operator (Dr. Parada) who started her on Lasix [...] hrs. She has appointment on 07/22/2024 with sales representative church furniture She has an appointment on 07/16/2024 for echocardiogram and hematology due to abnormal D-dimer result at ED visit. LMP 07/01/2024 X 8 days, menorrhagia. She is not taking iron rx. Last visit with her Network Security Consultant she has told everything was reportedly normal [...] and extreme temperatures. Continue close FU with Stapling Machine Operator. Continue Advair plus Duo Neb, awaiting [...] cause of anemia. I will refer to Airworthiness Safety Inspector at [facility] for treatment that may include IUD [...] g 2 ergocalciferol (Vitamin D2) 1.25 MG (58315 UT) capsule TAKE 1 CAPSULE(1.25 MG) BY [...] mL 2 Nebulizers (Vios Aerosol Delivery System) [facility] USE DIRECTED. OXcarbazepine (Trileptal) [...] and extreme temperatures. Continue close FU with Stapling Machine Operator. Continue Advair plus Duo Neb, awaiting pa for Fasenra. Will consider allergy testing. * Assessment & Plan Note - aJki Ortez [place] - 07/14/2024 10:53 AM EST [...] cause of anemia. I will refer to Airworthiness Safety Inspector at [facility] for treatment that may include IUD for one year as patient wants toget . She agreed to hormonal treatment if needed and delay until medical conditions are more stable. * Result Encounter Note - Marisa Livingston MD - 07/14/2024 10:00 AM EST Labs on 07/22/2024 were normal, no evidence of SUSANNA or electrolyte disbalance test. Please tell her tocontinue Lasix and other medications and follow-up with cardiology and sales representative church furniture. documented in this encounter Plan of Treatment Upcoming Encounters Date Type Department Care Team (Late st Contact Info) Description 08/06/2024 11:00 AM EDT Office Visit [facility] CHC ADULT DENTAL [address] [place] [address] Hieu Berlin, DMD [address] [place] [address] 08/06/2024 3:00 PM EDT Clinical Support [facility] DIABETES/NUTRITION [address] [place] [address] Mandi Pinedo, RD [address] [place] [address] 09/22/2024 11:30 AM EDT Telemedicine [facility] MEDICINE [address] [place] [address] Marisa Livingston MD [address] [place] [address] Scheduled Orders Name Type Priority Associated Diagnoses [...] EST) Sodium 139 135 - 145 mmol/L [facility] Potassium 3.8 3.3 - 5.1 mmol/L [facility] Chloride 109(H) 96 - 108 mmol/L [facility] Carbon Dioxide 25 22 - 29 mmol/L [facility] Anion Gap 9(L) 12 - 20 [facility] Urea Nitrogen (BUN) 8(L) 9 - 16 mg/dL [facility] Creatinine, Serum 0.58 0.5 - 1.4 mg/dL [facility] Estimated Glomerular Filt Rate >60 [facility] Comment:Chronic Kidney Disea se: Estimated GFR < 60 mL/min/1.15d7Hjsvhw Kidney Disease: Estimated GFR < 15 mL/min/1.73m2 Glucose 91 60 - 115 mg/dL [facility] Calcium 9.5 8.4 - 10.2 mg/dL [facility] Blood Venous blood specimen / Unknown 07/22/2024 10:48 AM EST 07/22/2024 11:51 AM EST us Marisa Livingston MD LAB BLOOD ORDERABLES Fin al Result [facility] [address] [place] [phone] documented in this encounter Visit Diagnoses Diagnosis Moderate persistent asthma without complication- Primary Cardiac enlargement Cardiomegaly Menorrhagia with regular cycle Obesity due to excess calories without serious comorbidity, unspecified class documented in this encounter Additional Health Concerns Assessment Noted Time PHQ-9 Depression Total Score: 17 025 9:47 AM EST documented as of this encounter Care Teams Trim Installer Relationship Specialty Start Date End Date Marisa Livingston MD [address] [place] [address] PCP - General Family Medicine 03/12/19 Perez Vergara RN [address] [place] [address] Onsite Health CoachSheet Rock Installer 06/30/24 documented as of this encounter
== END 2024-07-22 13:50 | disposition home or self-care (01) ==
PROVIDERS: PCP Internal Medicine; Visit Provider Internal Medicine Pulmonary Disease
DX: J45.909 Unspecified asthma, uncomplicated (principal); Z91.09 Other allergy status, other than to drugs and biological substances; R06.01 Orthopnea
CPT/HCPCS: 99214

== ENCOUNTER 2024-07-30 11:09 | Emergency (ER) | payer MEDICAID, SELFPAY ==
--- NOTE | 2024-07-30 | ECG_ITS ---
Test Reason : cp Blood Pressure : */* mmHG Vent. Rate : 83 BPM Atrial Rate : 83 BPM P-R Int : 134 ms QRS Dur : 90 ms QT Int : 342 ms P-R-T Axes : 40 -11 0 degrees QTcB Int : 401 ms Normal sinus rhythm Normal ECG When compared with ECG of 18-Jun-2024 10:46, No significant change was found Referred By: Generic ED Physician Electronically Signed By: JER DE LA VEGA
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
[2024-07-30 11:24] VITALS: BP 121/85; PULSE 93; RESP 18; TEMP 36.7; O2SAT 98; BMI 33.1
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
--- OUTSIDE RECORDS SUMMARY | 2024-07-30 15:05 | XMS_ITS | Encounter Summary ---
Author Organization [employer] Address [address] [place] [address] 7 [place] [address] Care Team Providers Care Grain Unloader Machine Name Role Phone Marisa Livingston MD Primary Care Provider + Perez Vergara RN Unavailable [phone] Reason for Visit * Reason Onset Date Comments Care Management 07/14/2024 C3CM- f/u call Encounter Details Date Type Department Care Team ([facility] st Contact Info) Description 07/14/2024 Telephone [facility] MEDICINE [address] [place], [place] [phone] Marisa Livingston MD [address] [place] [address] Care Management (C3CM- f/u call) Social History [...] provided on Walk-In Urgent Care located in [facility]. Patient provided with after-hours line for [facility], , which offer night time triage service and option to transfer to ground crewman mission support provider if needed. Patient verbalizes understanding, and able to repeat back to teletypewriter operator. A follow up call will be placed within 10 days, patientagrees with plan. documented in this encounter Plan of Treatment Upcoming Encounters Date Type Department Care Team (Late st Contact Info) Description 08/06/2024 11:00 AM EDT Office Visit [facility] CHC ADULT DENTAL [address] [place], [place] [phone] Berlin Hagen, BERNIE [address] [place] [address] 08/06/2024 3:00 PM EDT Clinical Support [facility] DIABETES/NUTRITION [address] [place] [address] Mandi Pinedo, MEAGAN [address] [place] [address] 09/22/2024 11:30 AM EDT Telemedicine [facility] MEDICINE [address] [place] [address] Marisa Livingston MD [address] [place] [address] documented as of this encounter Visit Diagnoses Not on filedocumented in this encounter Additional Health Concerns Assessment Noted Time PHQ-9 Depression Total Score: 17 025 9:47 AM EST documented as of this encounter Care Teams Grain Unloader Machine Relationship Specialty Start Date End Date Marisa Livingston MD [address] [place] [address] PCP - General Family Medicine 03/12/19 Perez Vergara RN [address] [place] [phone] Hand PickerGre Instructor 06/30/24 documented as of this encounter
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
--- OUTSIDE RECORDS SUMMARY | 2024-07-30 15:05 | XMS_ITS | Encounter Summary ---
Author Organization [employer] Address [address] [facility] 7 [place] [address] Care Team Providers Care Tile Molder Hand Name Role Phone Marisa Livingston MD Primary Care Provider + Perez Vergara RN Unavailable [phone] Reason for Visit * Reason Comments Med Refill Encounter Details Date Type Department Care Team (Late st Contact Info) Description 05/27/2024 Refill [facility] MEDICINE [address] [place] [address] Marisa Livingston MD [address] [place] [address] Social History Tobacco Use Types Packs/Day Years [facility] [address] [place] [address] Berlin Hagen, DMD [address] [place] [address] 08/06/2024 3:00 PM EDT Clinical Support [facility] DIABETES/NUTRITION [address] [place] [address] Mandi Pinedo, RD [address] [place] [address] 09/22/2024 11:30 AM EDT Telemedicine [facility] MEDICINE [address] [place] [address] Marsia Livingston MD [address] [place] [phone] documented as of this encounter Visit Diagnoses Not on filedocumented in this encounter Additional Health Concerns Assessment Noted Time PHQ-9 Depression Total Score: 17 024 9:31 AM EST documented as of this encounter Care Teams Tile Molder Hand Relationship Specialty Start Date End Date Marisa Livingston MD [address] [place] [phone] PCP - General Family Medicine 03/12/19 Perez Vergara RN [address] [place] [address] IRAJ Black [phone] Slurry WorkerSenior Manager Creative Services 06/30/24 documented as of this encounter
--- OUTSIDE RECORDS SUMMARY | 2024-07-30 15:05 | XMS_ITS | Encounter Summary ---
Author Organization [employer] Address [address] [place] [address] [address] [place] [address] Care Team Providers Care Falsework Builder Name Role Phone Marisa Livingston MD Primary Care Provider + Perez Vergara RN Unavailable [phone] Reason for Visit * Reason Onset Date Comments Care Management 06/30/2024 C3CM- initial as sessment/enrollment Encounter Details Date Type Department Care Team ([facility] st Contact Info) Description 06/30/2024 Telephone [facility] MEDICINE [address] [place] [address] Marisa Livingston MD [address] [place] [address] Care Management (C3- initial assessment/enrollment) Social History [...] report being followed by behavioral health with [facility]. She is established by a therapist [...] office. CM noted no pending appointment in [facility]. Patient is agreeable for CM to call these offices to schedule follow up appointments. Patient denies any vision or dental concerns. Patient uses glasses and last eye exam was last year here at [facility]. Patient reports last dental exam here at [facility] about 5 months ago. Patient is mostly independent with ADL's. She states that at time she would need help with cleaning due to extreme lower back pain.Patient denies use or need of any assistive devices. Per pt, was prescribed a nebulizer machine in the past that she never picked up. Patient states that prescription has but agreed to consult with emergency room clerk tomorrow. She report gaining weight due [...] understanding, and able to repeat back to proposal lead writer. A follow up call will be placed within 10 days, patient agrees with plan. documented in this encounter Plan of Treatment Upcoming Encounters Date Type Department Care Team (Late st Contact Info) Description 08/06/2024 11:00 AM EDT Office Visit [facility] CHC ADULT DENTAL [address] [place], [place] [phone] Berlin Hagen, DMD [address] [place] [address] 08/06/2024 3:00 PM EDT Clinical Support [facility] DIABETES/NUTRITION [address] [place] [address] [place] [address] 09/22/2024 11:30 AM EDT Telemedicine [facility] MEDICINE [address] [place] [address] Marisa Livingston MD [address] [place] [address] documented as of this encounter Visit Diagnoses Not on filedocumented in this encounter Additional Health Concerns Assessment Noted Time PHQ-9 Depression Total Score: 17 024 9:31 AM EST documented as of this encounter Care Teams Falsework Builder Relationship Specialty Start Date End Date Marisa Livingston MD [address] [place] [address] PCP - General Family Medicine 03/12/19 Perez Vergara RN [address] [place] [address] Lard RefinerMalt Liquors Sales Representative 06/30/24 documented as of this encounter
--- OUTSIDE RECORDS SUMMARY | 2024-07-30 15:05 | XMS_ITS | Encounter Summary ---
Author Organization [employer] Address [address] [place] [address] 7 [place] [address] Care Team Providers Care Environmental Adviser Name Role Phone Marisa Livingston MD Primary Care Provider + Perez Vergara RN Unavailable [phone] Reason for Visit * Reason Onset Date Comments Care Management 07/23/2024 C3CM- f/u call Encounter Details Date Type Department Care Team ([facility] st Contact Info) Description 07/23/2024 Telephone [facility] MEDICINE [address] [place], [place] [phone] Marisa Livingston MD [address] [place], [place] [phone] Care Management (C3CM- f/u call) Social History [...] Telephone Encounter - Perez Vergara RN - 07/23/2024 1:16 PM EST CM Perez Vergara RN placed outbound call to patient. Patient's name, and address confirmed. Patient states is doing well with no recent illnesses or emergency room visits. Patient confirms attending visit with Cardiology and Hematology on 07/16/24. Per patient, visits went well. She states she complete the echo that was ordered by Cardiology on 07/16. Per patient, has not yet been contacted with results. She states she does have a f/u scheduled on 09/27/24. Patient agrees to contact the office to request results if she does not hear back within the next week. Per patient, informed by Hematology that she has low iron. She states she was advised that they will be calling her within the next two weeks to schedule visit for iron infusion. Patient also has a f/u scheduled with Heme/ oncologyon 10/13/24. Per patient, saw Pulmonology yesterday. She states she was advised that her asthma symptoms may be related to the retention of fluids. Per patient, picked up the lasix 40mg from the pharmacy yesterday and states she is taking Rx as prescribed. She denies experiencing any side effects. Per patient, using albuterol inhaler and nebulizer as prescribed. Patient states she is doing well emotionally. She states she has been following up with her therapist regularly. Based on CM assessment, patient does not need LTSS referral at this time. CM will continue to re- evaluate patient during subsequent telephone call and place a referral if needed. No further questions or concerns. CM reinforced direct contact information for any additional questions or concerns. Education provided on Walk-In Urgent Care located in [facility] of [facility]. Patient provided with after-hours line for [facility], , which offer night time triage service and option to transfer to concession manager provider if needed. Patient verbalizes understanding, and able to r epeat back to customs entry writer. A follow up call will be placed within 10 days, patient agrees with plan. documented in this encounter Plan of Treatment Upcoming Encounters Date Type Department Care Team (Late st Contact Info) Description 08/06/2024 11:00 AM EDT Office Visit [facility] CHC ADULT DENTAL [address] [place], [place] [phone] Berlin Hagen, DMD [address] [place], [place] [phone] 08/06/2024 3:00 PM EDT Clinical Support [facility] DIABETES/NUTRITION [address] [place], [place] [phone] Mandi Pinedo [address] [place], [place] [phone] 09/22/2024 11:30 AM EDT Telemedicine [facility] MEDICINE [address] [place], [place] [phone] Marisa Livingston MD [address] [place], [place] [phone] documented as of this encounter Visit Diagnoses Not on filedocumented in this encounter Additional Health Concerns Assessment Noted Time PHQ-9 Depression Total Score: 17 07/14/ 025 9:47 AM EST documented as of this encounter Care Teams Environmental Adviser Relationship Specialty Start Date End Date Marisa Livingston MD [address] [place] [address] PCP - General Family Medicine 03/12/19 Perez Vergara RN [address] [place] [address] Truck Car And Bus CleanerTelecommunication Operator 06/30/24 documented as of this encounter
--- OUTSIDE RECORDS SUMMARY | 2024-07-30 15:05 | XMS_ITS | Encounter Summary ---
Author Organization [employer] Address [address] [facility] [address] Care Team Providers Care Evaluation Manager Name Role Phone Marisa Livingston MD Primary Care Provider + Perez Vergara RN Unavailable [phone] Reason for Visit * Reason Onset Date Comments Appointment 07/12/2022 Encounter Details Date Type Department Care Team (Late st Contact Info) Description 07/12/2022 Telephone [facility] ADULT DENTAL [address] [place] [address] Yeison Arnold, DMD [address] [place] [address] Appointment Social History Tobacco Use Types Packs/Day [...] [facility] AD[facility] [address] [place], [place] [id number] [place] Hagen, BERNIE [address] [place] [address] 08/06/2024 3:00 PM EDT Clinical Support [facility] DIABETES/NUTRITION [address] [place] [address] Mandi Pinedo, RD [address] [place] [address] 09/22/2024 11:30 AM EDT Telemedicine [facility] MEDICINE [address] [place] [address] Marisa Livingston MD [address] [place] [address] documented as of this encounter Visit Diagnoses Not on filedocumented in this encounter Additional Health Concerns Assessment Noted Time PHQ-9 Depression Total Score: 4 07/03/19 23 10:39 AM EST documented as of this encounter Care Teams Evaluation Manager Relationship Specialty Start Date End Date Marisa Livingston MD [address] [place] [address] PCP - General Family Medicine 03/12/19 Perez Vergara RN [address] [place] [address] Child Nutrition AssistantDual Rate Supervisor 06/30/24 documented as of this encounter
--- OUTSIDE RECORDS SUMMARY | 2024-07-30 15:05 | XMS_ITS | Clinical Summary ---
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 [facility] Hematocrit 31.5(L) 37.0 - 47.0 % [facility] Mean Corpuscular Volume 67.6(L) 80.0 - 98.0 fL [facility] Mean Corpuscular Hemoglobin 19.5(L) 27.0 - 33.0 pg [facility] Mean Corpuscular HGB Conc 28.9(L) 31.0 - 35.0 g/dl [facility] Red Cell Distribution Width 19.1(H) 11.0 - 16.0 % [facility] Platelet Count 334 160 - 400 X10*3/uL [facility] Mean Platelet Volume 9.0(L) 9.4 - 12.3 fL [facility] Neutrophils Percent Auto 63.8 45 - 73 % [facility] Imm Gran Pct Auto 0.1 0.0 - 0.4 % [facility] Lymphocytes Percent Auto 24.5 20 - 40 % [facility] Monocytes Percent Auto 6.1 2 - 11 % [facility] Eosinophils Percent Auto 5.2(H) 0 - 4 % [facility] Basophils Percent Auto 0.3 0 - 2 % [facility] NRBC Pct Auto 0.0 0.0 - 0.2 /100WBC [facility] Neutrophils Absolute Auto 4.3 2.0 - 8.3 x10*3/uL [facility] Imm Gran Abs Auto 0.01 0.00 - 0.03 X10*3/uL [facility] Lymphocytes Absolute Auto 1.6 1.2 - 4.9 X10*3/uL [facility] Monocytes Absolute Auto 0.4 0.1 - 1.2 X10*3/uL [facility] Eosinophils Absolute Auto 0.4 0.0 - 0.4 X10*3/uL [facility] Basophils Absolute Auto 0.0 0.0 - 0.2 X10*3/uL [facility] NRBC Abs Auto 0.000 0.0 - 0.012 X10*3/uL [facility] 06/18/2024 10:5 2 AM EST 06/18/2024 10:56 AM EST Generic External Data Provider LAB BLOOD ORDERAB LES Final Result Performing Organization Address [facility] Co de Phone Number [facility] [address] [place] [phone] * (ABNORMAL) Prothrombin Time-INR (06/18/2024 10:52 AM EST) Prothrombin Time 13.5(H) 10.9 - 12.4 SEC [facility] INTERNATIONAL NORM RATIO 1.2(H) 0.9 - 1.1 [facility] Comment:INTERNATIONAL NORMAL IZED RATIO (INR) [...] ORDERAB LES Final Result Performing Organization Address [facility] Co de Phone Number [facility] [address] [place] [address] [phone] * hCG, Total, Quantitative (06/18/2024 10:52 AM EST) HCG Quantitative <2 mIU/mL [facility] Comment:Weeks post LMP Appro ximate hCG(Last Menstrual Period) Range (mIU/ml)3 - 4 weeks 9 - 1304 - 5 weeks 75 - 2,6005 - 6 weeks 850 - 20,8006 - 7 weeks 4000 - 100,2007 - 12 weeks 11,500 - 289,59293 - 16 weeks 18,300 - 137,85363 - 29 weeks (2nd trimester) 1,400 - 53,11462 - 41 weeks (3rd trimester) 940 - [...] Provider LAB BLOOD ORDERAB LES Final Result [facility] [address] [place], [place] [phone] * Pertussis Bordetella toxin (PT) Antibody (IgG), Immunoassay (06/17/2024 3:32 PM EST) [facility] Pertussis Testing 2 IU/mL [facility] Comment: REFERENCE RANGE:: ? Age (years) [...] The indicated PT IgG reference ranges reflect [id number] percentile of antibody levels in sera from healthychildren and blood donors; thus, levels above the referencerange suggest recent infection or vaccination within thelast few months.This test was developed and its analytical performancecharacteristics have been determined by [facility].It has not been cleared or approved by FDA. This assay hasbeen validated pursuant to the CLIA regulations and isused for clinical purposes.For additional information, please refer tohttp://education.Victrix.Workle/faq/KAL541.(This link is being provided for informational/educational purposes only.)THIS TEST WAS PERFORMED AT:[employer] [id number] [place], [place] ??[id number] HUSSEIN MD,PHD,MARISOL Blood Venous blood specimen / Unknown 06/17/2024 3:32 PM EST 06/17/2024 3:59 PM EST Jaki Cruz MD LAB BLOOD ORDERABLES Final Result Performing Organization Address City/[facility] Co de Phone Number [facility] [address] [place] [phone] * C-reactive Protein (06/17/2024 3:32 PM EST) [facility] C Reactive Protein <0.10 < or = 0.50 mg/dL [facility] Blood Venous blood specimen / Unknown 06/17/2024 3:32 PM EST 06/17/2024 3:59 PM EST Jaki Cruz MD LAB BLOOD ORDERABLES Final Result Performing Organization Address [facility] Co de Phone Number [facility] [address] [place] [phone] * Influenza B (ID NOW Rapid Molecular) (06/17/2024 2:36 PM EST) [facility] Influenza B Negative Negative, Indeterminate [facility] Swab 06/17/2024 2:36 PM EST Jaki Cruz MD POINT OF CARE TEST ENTER/E DIT ORDERABLES Final Result Performing Organization Address [facility] de Phone Number [facility] [address] [place] [phone] * Influenza A (ID NOW Rapid Molecular) (06/17/2024 2:36 PM EST) [facility] Influenza A Negative Negative, Indeterminate [facility] Swab 06/17/2024 2:36 PM EST Jaki Cruz MD POINT OF CARE TEST ENTER/E DIT ORDERABLES Final Result Performing Organization Address City/[facility]/ZIP Co de Phone Number [facility] [address] [place] [phone] * POCT rapid strep A manually resulted (06/17/2024 2:36 PM EST) Pathologist [facility] Rapid Strep A Screen Negative Negative, None Detected Swab 06/17/2024 2:36 PM EST Jaki Cruz MD POINT OF CARE TEST ENTER/E DIT ORDERABLES Final Result * POCT Rapid Covid-19 BinaxNOW (06/17/2024 2:09 PM EST) Pathologist [facility] Rapid COVID Ag Negative Nares 06/17/2024 2:09 PM EST Jaki Cruz MD POINT OF CARE TEST ENTER/E DIT ORDERABLES Final Result * Strep A Nucleic Acid (05/26/2024 5:39 PM EST) IDNOW SERIAL# [id number] [facility] Strep A Nucleic Acid Negative Negative [facility] Comment:All test results mus [...] GENERAL ORDERABLES Final Result Performing Organization Address [facility]/ZIP Co de Phone Number [facility] [address] [place] [phone] * (ABNORMAL) SARS-CoV-2 RNA, Influenza A/B, and RSV RNA, Ql NAAT (05/26/2024 5:39 PM EST) Influenza A PCR POSITIVE(A) Negative [facility] Influenza B PCR NEGATIVE Negative [facility] Resp Syncy Virus RNA Qual PCR NEGATIVE Negative [facility] SARS COV2 PCR NEGATIVE Negative [facility] Comment:All test results mus [...] use by authorized laboratories.Testing performed on the [employer] Gene[employer]pert utilizingreal-time RT-PCR.All SARS CoV2 and positive influenza A/B results arereported to [facility]. 05/26/2024 5:39 PM EST 05/26/2024 5:46 PM EST us Generic External Data Provider LAB MICROBIOLOGY - GENERAL ORDERABLES Final Result [facility] [address] [place] [phone] * Pap Smear (08/05/2023 3:15 PM EDT) 08/05/2023 3:15 PM EDT 08/07/2023 1:00 PM EDT Narrative [facility] - 08/18/2023 1:17 PM EDT ----- ------- Name: Cleo Rock ? Age/Sex: 32/F ? : 1990 Unit#: [id number] ?? Attend Dr: Amaris Salgado CNM ?Re08/05/23 ?Status: DEP REF ? Location: HO.LNP ?Disch: ? ----- ------- SPEC : [id number] ? RECD: 08/07/23-1300 ? STATUS: ??SOUT ? REQ NUM: [id number] ? MEAGAN: 08/05/23-1515 ? SUBM DR: Amaris Salgado CNM ? ENTERED: ??08/07/23-9178 ?SP TYPE: Pap Smr ?OTHR DR: Marisa [...] 66, 68) ?? HPV testing performed by [facility], [place], [place]. ??See reference laboratory ?? portion of the EMR for entire report. ?Clinical Information LMP: 07/17/23 Previous PAP test: 09/17/17, WNL ? Material Received ?? ThinPrep-Cervical Copies To: ?? Marisa Livingston MD ?? [address] [facility] ?? [place] [id number] ? Amaris Salgado CNM ?? [address] [place] [address] [address] ?? [place] [address] ?? [phone] ----- ------- Signed (signature on file) IDANIA Hutchinson (ASCP) 08/18/23 1317 ? ----- ------- ? END OF REPORT ? us Generic External Data Provider LAB CYTOLOGY GILBERT UGARTE Final Result Performing Organization Address [facility] Co de Phone Number [facility] [address] [place] [phone] * HIV Ab/Ag ([facility]) (12/09/2022 1:30 PM EDT) HIV AB/AG Nonreactive Nonreactive [facility] Comment:HIV-1 p24 Ag and/or HIV-1/HIV-2 Ab not detected.A test result that is nonreactive does not exclude thepossibility of exposure to or infection with HIV-1 and/orHIV-2. Nonreactive results in this assay for individualswith prior exposure to HIV-1 and/or HIV-2 may be due toantigen and antibody levels that are below the limit ofdetection of this assay.[facility] Director HIV Ag/Ab Combo assay result andsupplemental assay results should be interpreted inconjunction with the patient's clinical presentation,history and other laboratory results. If the results areinconsistent with clinical evidence, additional testing issuggested to confirm the result. 12/09/2022 1:30 PM EDT 12/09/2022 4:12 PM EDT us Marisa Livingston MD LAB BLOOD ORDERABLES Fin al Result Performing Organization Address [facility]/ZIP Co de Phone Number [facility] [address] [place] [phone] * Lipid Panel, Standard (12/09/2022 1:30 PM EDT) Triglycerides 56 mg/dL [facility] Comment:Desirable Triglyceri de: less than 150 mg/dLBorderline High Triglyceride 150-199 mg/dLHigh Triglyceride: 200-499 mg/dLVery High Triglyceride: greater than or equal to 5OO mg/dL Cholesterol 114 mg/dL [facility] Comment:Desirable Cholestero l: less than 200 mg/dLBorderline High Cholesterol: 200-239 mg/dLHigh Cholesterol: greater than 239 mg/dL LDL Cholesterol Calculated 65 mg/dl [facility] Comment:Desirable LDL: less than 100 mg/dLNear Optimal/Above Optimal LDL: 110- 129 mg/dLBorderline High LDL: 130-159 mg/dLHigh LDL: 160-189 mg/dLVery High LDL: greater than or equal to 190 mg/dL HDL Cholesterol 38 mg/dL [facility] Comment:Desirable HDL: great er than 40 mg/dL Note: This HDL assay may give artificially low results in patients with liver disease. 12/09/2022 1:30 PM EDT 12/09/2022 4:12 PM EDT Marisa Livingston MD LAB BLOOD ORDERABLES Fin al Result [facility] [address] [place] [phone] from Last 3 Months or Most Recently Relevant to Health Maintenance Insurance [facility] C[place] AD[place] Care Teams Mineralogy Professor Relationship Specialty Start Date End Date Marisa Livingston MD [address] [place] [phone] PCP - General Family Medicine 03/12/19 Perez Vergara RN [address] [place] [address] Geographic Area Intelligence OfficerKeg Inspector 06/30/24
--- OUTSIDE RECORDS SUMMARY | 2024-07-30 15:05 | XMS_ITS | Encounter Summary ---
Author Organization [employer] Address [address] [place] [address] Care Team Providers Care Seafood Team Member Name Role Phone Marisa Livingston MD Primary Care Provider + Perez Vergara RN Unavailable [phone] Encounter Details Date Type Department Care Team (Late st Contact Info) Description 07/19/2022 Abstract [facility] ADULT DENTAL [address] [place] [address] [place] Hagen, DMD [address] [place] [address] Social History Tobacco Use Types Packs/Day Years [...] Description 08/06/2024 11:00 AM EDT Office Visit [facility] CHC ADULT DENTAL [address] [place] [address] Berlin Hagen DMD [address] [place], [place] 08/06/2024 3:00 PM EDT Clinical Support [facility] DIABETES/NUTRITION [address] [place] [address] [place] [address] 09/22/2024 11:30 AM EDT Telemedicine [facility] MEDICINE [address] [place] [address] Marisa Livingston MD [address] [place], [place] documented as of this encounter Visit Diagnoses Not on filedocumented in this encounter Additional Health Concerns Assessment Noted Time PHQ-9 Depression Total Score: 4 07/03/19 23 10:39 AM EST documented as of this encounter Care Teams Seafood Team Member Relationship Specialty Start Date End Date Marisa Livingston MD [address] [place] [address] PCP - General Family Medicine 03/12/19 Perez Vergara RN [address] [place], [place] Downstream Biomanufacturing TechnicianEnrollment Management Director 06/30/24 documented as of this encounter
--- OUTSIDE RECORDS SUMMARY | 2024-07-30 15:05 | XMS_ITS | Encounter Summary ---
Author Organization [employer] Address [address] [facility] 7 [place] [address] Care Team Providers Care Pneumatic Tube Operator Name Role Phone Marisa Livingston MD Primary Care Provider + Perez Vergara RN Unavailable [phone] Reason for Visit * Reason Onset Date Comments Chart prep 07/07/2024 Encounter Details Date Type Department Care Team (Late st Contact Info) Description 07/07/2024 Telephone [facility] MEDICINE [address] [place] [address] Marisa Livingston MD [address] [place] [address] Chart prep Social History Tobacco Use Types [...] 11:00 AM EDT Office Visit [facility] CHC ADULT DENTAL [address] [place] [address] Berlin Hagen, DMD [address] [place] [address] 08/06/2024 3:00 PM EDT Clinical Support [facility] DIABETES/NUTRITION [address] [place] [address] Mandi Pinedo, MEAGAN [address] [place] [address] 09/22/2024 11:30 AM EDT Telemedicine [facility] MEDICINE [address] [place] [address] Marisa Livingston MD [address] [place] [address] documented as of this encounter Visit Diagnoses Not on filedocumented in this encounter Additional Health Concerns Assessment Noted Time PHQ-9 Depression Total Score: 17 024 9:31 AM EST documented as of this encounter Care Teams Pneumatic Tube Operator Relationship Specialty Start Date End Date Marisa Livingston MD [address] [place] [phone] PCP - General Family Medicine 03/12/19 Perez Vergara RN [address] [place] [phone] Mathematics ProfessorDry Curer 06/30/24 documented as of this encounter
--- OUTSIDE RECORDS SUMMARY | 2024-07-30 15:05 | XMS_ITS | Encounter Summary ---
Author Organization [employer] Address [address] [facility] 7 [place] [address] Care Team Providers Care Time Clock Inspector Name Role Phone Marisa Livingston MD Primary Care Provider + Perez Vergara RN Unavailable [phone] Reason for Visit * Reason Onset Date Comments Appointment Request 07/14/2024 Encounter Details Date Type Department Care Team (Late st Contact Info) Description 07/14/[address] [facility] MEDICINE [address] [place] [address] Marisa Livingston MD [address] [place] [address] Appointment Request Social History Tobacco Use Types [...] 08/06/2024 11:00 AM EDT Office [address] [facility] CHC ADULT DENTAL [address] [place] [address] Berlin Hagen, BERNIE [address] [place] [address] 08/06/2024 3:00 PM EDT Clinical Support [facility] DIABETES/NUTRITION [address] [place] [address] Mandi Pinedo, MEAGAN [address] [place] [address] 09/22/2024 11:[address] [facility] MEDICINE [address] [place] [address] Marisa Livingston MD [address] [place] [address] documented as of this encounter Visit Diagnoses Not on filedocumented in this encounter Additional Health Concerns Assessment Noted Time PHQ-9 Depression Total Score: 17 025 9:47 AM EST documented as of this encounter Care Teams Time Clock Inspector Relationship Specialty Start Date End Date Marisa Livingston MD [address] [place] [address] PCP - General Family Medicine 03/12/19 Perez Vergara RN [address] [place] [phone] International Project ManagerLiquid Flavor Compounder 06/30/24 documented as of this encounter
--- OUTSIDE RECORDS SUMMARY | 2024-07-30 15:05 | XMS_ITS | Encounter Summary ---
Author Organization [employer] Address [address] [facility] 7 [place] [address] Care Team Providers Care Actuarial Manager Name Role Phone Marisa Livingston MD Primary Care Provider + Perez Vergara RN Unavailable [phone] Reason for Visit * Reason Onset Date Comments Chart prep 07/09/2024 Encounter Details Date Type Department Care Team (Late st Contact Info) Description 07/09/2024 Telephone [facility] MEDICINE [address] [place] [address] Marisa Livingston MD [address] [place] [address] Chart prep Social History Tobacco Use Types [...] [facility] ADULT D[facility] [address] [place] [address] Belrin Hagen, DMD [address] [place] [address] 08/06/2024 3:00 PM EDT Clinical Support [facility] DIABETES/NUTRITION [address] [place] [address] Mandi Pinedo, MEAGAN [address] [place] [address] 09/22/2024 11:30 AM EDT Telemedicine [facility] MEDICINE [address] [place] [address] Marisa Livingston MD [address] [place] [address] documented as of this encounter Visit Diagnoses Not on filedocumented in this encounter Additional Health Concerns Assessment Noted Time PHQ-9 Depression Total Score: 17 024 9:31 AM EST documented as of this encounter Care Teams Actuarial Manager Relationship Specialty Start Date End Date Marisa Livingston MD [address] [place] [phone] PCP - General Family Medicine 03/12/19 ePrez Vergara RN [address] [place] [address] Carpentry TeacherTransaction Manager 06/30/24 documented as of this encounter
--- OUTSIDE RECORDS SUMMARY | 2024-07-30 15:05 | XMS_ITS | Encounter Summary ---
Author Organization [employer] Address [address] [facility] 7 [place] [address] Care Team Providers Care Criminal Intelligence Analyst Name Role Phone Marisa Livingston MD Primary Care Provider + Perez Vergara RN Unavailable [phone] Reason for Visit * Reason Comments Med Refill Encounter Details Date Type Department Care Team (Late st Contact Info) Description 07/27/2024 Refill [facility] MEDICINE [address] [place] [address] Marisa Livingston MD [address] [place] [address] Moderate persistent asthma without complication Social History [...] 11:00 AM EDT Office Visit [facility] CHC ADULT DENTAL [address] [place] [address] [place] Hagen, BERNIE [address] [place] [address] 08/06/2024 3:00 PM EDT Clinical Support [facility] DIABETES/NUTRITION [address] [place] [address] [place] [address] 09/22/2024 11:30 AM EDT Telemedicine [facility] MEDICINE [address] [place] [address] Marisa Livingston MD [address] [place] [address] documented as of this encounter Visit Diagnoses Diagnosis Moderate persistent asthma without complication documented in this encounter Additional Health Concerns Assessment Noted Time PHQ-9 Depression Total Score: 17 025 9:47 AM EST documented as of this encounter Care Teams Criminal Intelligence Analyst Relationship Specialty Start Date End Date Marisa Livingston MD [address] [place] [address] PCP - General Family Medicine 03/12/19 Perez Vergara RN [address] [place] [phone] Customer ManagerPublic Relations Intern 06/30/24 documented as of this encounter
--- OUTSIDE RECORDS SUMMARY | 2024-07-30 15:05 | XMS_ITS | Encounter Summary ---
Author Organization [employer] Address [address] [place] [address] Care Team Providers Care Facing End Trimmer Name Role Phone Marisa Livingston MD Primary Care Provider + Perez Vergara RN Unavailable [phone] Encounter Details Date Type Department Care [...] Description 08/06/2024 11:00 AM EDT Office Visit [facility] CHC ADULT DENTAL [address] [place] [address] Berlin Hagen, BERNIE [address] [place] [address] 08/06/2024 3:00 PM EDT Clinical Support [facility] DIABETES/NUTRITION [address] [place] [address] Mandi Pinedo, MEAGAN [address] [place] [address] 09/22/2024 11:30 AM EDT Telemedicine [facility] MEDICINE [address] [place] [address] Marisa Livingston MD [address] [place] [address] documented as of this encounter Visit Diagnoses Not on filedocumented in this encounter Additional Health Concerns Assessment Noted Time PHQ-9 Depression Total Score: 17 025 9:47 AM EST documented as of this encounter Care Teams Facing End Trimmer Relationship Specialty Start Date End Date Marisa Livingston MD [address] [place] [phone] PCP - General Family Medicine 03/12/19 Perez Vergara RN [address] [place] [address] [place] [address] Music ManagerFoxpro Developer 06/30/24 documented as of this encounter
--- OUTSIDE RECORDS SUMMARY | 2024-07-30 15:05 | XMS_ITS | Encounter Summary ---
Author Organization [employer] Address 75 [facility] 7 [place] [address] Care Team Providers Care Color Weigher Name Role Phone Marisa Livingston MD Primary Care Provider + Perez Vergara RN Unavailable [phone] Reason for Visit * Reason Onset Date Comments Results 07/22/2024 Encounter Details Date Type Department Care Team (Late st Contact Info) Description 07/22/2024 Telephone [facility] MEDICINE [address] [place] [address] Marisa Livingston MD [address] [place], [place] [phone] Results Social History Tobacco Use Types Packs/Day [...] were not included. TC placed to patient [phone] to inform of below message. Patient verbalized understanding and did not have any further questions/concerns. Patient to f/u PRN. Marisa Livingston MD [facility] Red Team Nurses Labs on 07/22/2024 were normal, no evidence of SUSANNA or electrolyte disbalance test. Please tell her tocontinue Lasix and other medications and follow-up with cardiology and conveyor line battery charger. documented in this encounter Plan of Treatment Upcoming Encounters Date Type Department Care Team (Late st Contact Info) Description 08/06/2024 11:00 AM EDT Office Visit [facility] CHC ADULT DENTAL [address] [place] [address] Berlin Hagen, DMD [address] [place] [address] 08/06/2024 3:00 PM EDT Clinical Support [facility] DIABETES/NUTRITION [address] [place] [address] [place], [place] [phone] 09/22/2024 11:30 AM EDT Telemedicine [facility] MEDICINE [address] [place], [place] [phone] Marisa Livingston MD [address] [place], [place] [phone] documented as of this encounter Visit Diagnoses Not on filedocumented in this encounter Additional Health Concerns Assessment Noted Time PHQ-9 Depression Total Score: 17 025 9:47 AM EST documented as of this encounter Care Teams Color Weigher Relationship Specialty Start Date End Date Marisa Livingston MD [address] [place] [address] [phone] PCP - General Family Medicine 03/12/19 Perez Vergara, CHAPITO [address] [place] [phone] Contract ParalegalOil Field Roustabout 06/30/24 documented as of this encounter
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
--- OUTSIDE RECORDS SUMMARY | 2024-07-30 15:05 | XMS_ITS | Encounter Summary ---
Author Organization [employer] Address 75 [facility] 7 [place] [address] Care Team Providers Care On Site Coordinator Name Role Phone Marisa Livingston MD Primary Care Provider + Perez Vergara RN Unavailable [phone] Reason for Visit * Reason Onset Date Comments Appointment Request 07/09/2024 Encounter Details Date Type Department Care Team ([facility] st Contact Info) Description 07/09/2024 Telephone [facility] MEDICINE [address] [place] [address] Marisa Livingston MD [address] [place] [address] Appointment Request Social History Tobacco Use Types [...] [facility] CHC ADULT DENTAL [address] [place] [address] Berlin Hagen, BERNIE [address] [place] [address] 08/06/2024 3:00 PM EDT Clinical Support [facility] DIABETES/NUTRITION [address] [place] [address] [place] [address] 09/22/2024 11:30 AM EDT Telemedicine [facility] MEDICINE [address] [place], [place] [phone] Marisa Livingston MD [address] [place] [address] documented as of this encounter Visit Diagnoses Not on filedocumented in this encounter Additional Health Concerns Assessment Noted Time PHQ-9 Depression Total Score: 17 024 9:31 AM EST documented as of this encounter Care Teams On Site Coordinator Relationship Specialty Start Date End Date Marisa Livingston MD [address] [place], [place] [phone] PCP - General Family Medicine 03/12/19 Perez Vergara RN [address] [place] [phone] Medical Assistant CardiologyReinforcing Steel Worker 06/30/24 documented as of this encounter
--- OUTSIDE RECORDS SUMMARY | 2024-07-30 15:05 | XMS_ITS | Encounter Summary ---
Author Organization [employer] Address [address] [place] [address] [facility] [place] [address] Care Team Providers Care Bathroom Tiling Professional Name Role Phone Marisa Livingston MD Primary Care Provider + Perez Vergara RN Unavailable [phone] Reason for Referral * Consultation (Routine) - Authorized Specialty Diagnoses / Procedures Referred By Nadya t Referred To Contact Nutrition Diagnoses Obesity due to excess calories without serious comorbidity, unspecified class Marisa Livingston MD [address] [place] [address] Phone: tel: fax: Referral ID Status Reason Start Date Expiration Date Visits Requested Visits Authorized [id number] Authorized Consult and Treat 07/14/2024 07/14/2025 1 1 * Consultation (Routine) - Authorized Specialty Diagnoses / Procedures Referred By Contdaniela t Referred To Contact Obstetrics and Gynecology Diagnoses Menorrhagia with regular cycle Marisa Livingston MD [address] [place] [address] Phone: tel: fax: [address] Phone: tel: fax: Referral ID Status Reason Start Date Expiration Date Visits Requested Visits Authorized [id number] Authorized Specialty Services Required 07/16/2024 07/16/2025 9 9 Reason for Visit * Reason Comments Asthma Encounter Details Date Type Department Care Team (Late st Contact Info) Description 07/14/2024 10:00 AM EST Telemedicine [facility] MEDICINE [address] [place] [address] Marisa Livingston MD [address] [place] [address] Moderate persistent asthma without complication (Primary Dx); [...] started on Advair and Albuterol seen by Manager Casino (Dr. Parada) who started her on Lasix [...] hrs. She has appointment on 07/22/2024 with slubber operator She has an appointment on 07/16/2024 for echocardiogram and hematology due to abnormal D-dimer result at ED visit. LMP 07/01/2024 X 8 days, menorrhagia. She is not taking iron rx. Last visit with her Professor Of Surgery she has told everything was reportedly normal [...] and extreme temperatures. Continue close FU with Manager Casino. Continue Advair plus Duo Neb, awaiting pa [...] cause of anemia. I will refer to Planer Mill Grader at [facility] for treatment that may include [...] g 2 ergocalciferol (Vitamin D2) 1.25 MG (08143 UT) capsule TAKE 1 CAPSULE(1.25 MG) BY [...] mL 2 Nebulizers (Vios Aerosol Delivery System) [facility] USE DIRECTED. OXcarbazepine (Trileptal) 300 MG tablet [...] and extreme temperatures. Continue close FU with Manager Casino. Continue Advair plus Duo Neb, awaiting pa [...] cause of anemia. I will refer to Planer Mill Grader at [facility] for treatment that may include [...] other medications and follow-up with cardiology and slubber operator. documented in this encounter Plan of Treatment Upcoming Encounters Date Type Department Care Team (Late st Contact Info) Description 08/06/2024 11:00 AM EDT Office Visit [facility] CHC ADULT DENTAL [address] [place] [address] Hieu Berlin, DMD [address] [place] [address] 08/06/2024 3:00 PM EDT Clinical Support [facility] DIABETES/NUTRITION [address] [place] [address] Mandi Pinedo, RD [address] [place] [address] 09/22/2024 11:30 AM EDT Telemedicine [facility] MEDICINE [address] [place] [address] Marisa Livingston MD [address] [place] [address] Scheduled Referrals Name Type Priority Associated Diagnoses Orde r Schedule Referral to Gynecology Outpatient Referral Routine Menorrhagia with regular cycle Expected: 07/14/2024 (Approximate), Expires: 07/14/2025 Referral to Nutrition Therapy Outpatient Referral Routine Obesity due to excess calories without serious comorbidity, unspecified class Expected: 07/14/2024 (Approximate), Expires: 07/14/2025 documented as of this encounter Procedures Procedure Name Priority Date/Time Associated Diagnosis Comments T-SPOT(R).TB Routine 07/22/2024 10:48 AM EST Moderate persistent asthma without complication BASIC METABOLIC PANEL Routine 07/22/2024 10:48 AM EST Cardiac enlargement documented in this encounter Results * (ABNORMAL) Basic Metabolic Panel (07/22/2024 10:48 AM EST) Sodium 139 135 - 145 mmol/L [facility] Potassium 3.8 3.3 - 5.1 mmol/L [facility] Chloride 109(H) 96 - 108 mmol/L [facility] Carbon Dioxide 25 22 - 29 mmol/L [facility] Anion Gap 9(L) 12 - 20 [facility] Urea Nitrogen (BUN) 8(L) 9 - 16 mg/dL [facility] Creatinine, Serum 0.58 0.5 - 1.4 mg/dL [facility] Estimated Glomerular Filt Rate >60 [facility] Comment:Chronic Kidney Disea se: Estimated GFR < 60 mL/min/1.79w1Itlxlj Kidney Disease: Estimated GFR < 15 mL/min/1.73m2 Glucose 91 60 - 115 mg/dL [facility] Calcium 9.5 8.4 - 10.2 mg/dL [facility] Blood Venous blood specimen / Unknown 07/22/2024 10:48 AM EST 07/22/2024 11:51 AM EST us Marisa Livingston MD LAB BLOOD ORDERABLES Fin al Result [facility] [address] [place] [phone] * T-SPOT??.TB (07/22/2024 10:48 AM EST) T Spot TB Negative Negative [facility] Comment:A negative test resu lt does [...] as aquantitative test. TS PANEL A 0 [facility] TS PANEL B 1 [facility] Negative Control Passed [facility] Positive Control Passed [facility] Comment:For additional infor mation, please refer tohttp://education.[employer]/faq/UTS509(This link is being provided for informational/educational purposes only.)THIS TEST WAS PERFORMED AT:[employer]/[facility]HUDCTPNE[address] [place] [address]PNOWIUNKHUSHI SHAY MD,PHD 07/22/2024 10:4 8 AM EST 07/22/2024 11:51 AM EST us Marisa Livingston MD LAB BLOOD ORDERABLES Fin al Result [facility] [address] [place] [phone] documented in this encounter Visit Diagnoses Diagnosis Moderate persistent asthma without complication- Primary Cardiac enlargement Cardiomegaly Menorrhagia with regular cycle Obesity due to excess calories without serious comorbidity, unspecified class documented in this encounter Additional Health Concerns Assessment Noted Time PHQ-9 Depression Total Score: 17 025 9:47 AM EST documented as of this encounter Care Teams Bathroom Tiling Professional Relationship Specialty Start Date End Date Marisa Livingston MD [address] [place] [address] PCP - General Family Medicine 03/12/19 Perez Vergara RN [address] [place] [phone] Team Leader/Research PsychologistAir Shovel Operator 06/30/24 documented as of this encounter
--- OUTSIDE RECORDS SUMMARY | 2024-07-30 15:05 | XMS_ITS | Encounter Summary ---
Author Organization [employer] Address [address] [facility] 7 [place] [address] Care Team Providers Care Bolt Labeler Name Role Phone Marisa Livingston MD Primary Care Provider + Perez Vergara RN Unavailable [phone] Reason for Visit * Reason Onset Date Comments Appointment Confirmation 07/14/2024 Encounter Details Date Type Department Care Team (Late st Contact Info) Description 07/14/2024 Telephone [facility] MEDICINE [address] [place] [address] Marisa Livingston MD [address] [place] [address] Appointment Confirmation Social History Tobacco Use Types [...] - 07/14/2024 10:16 AM EST Tc to [facility] cardiology to confirm any upcoming appt for pt. Spoke to Yuni who stated pt is scheduled 07/16/24 at 1:20 pm with hematology and 07/16/24 at 10:00 am for echo. documented in this encounter Plan of Treatment Upcoming Encounters Date Type Department Care Team (Late st Contact Info) Description 08/06/2024 11:00 AM EDT Office Visit [facility] CHC ADULT DENTAL [address] [place] [address] Berlin Hagen, DMD [address] [place] [address] 08/06/2024 3:00 PM EDT Clinical Support [facility] DIABETES/NUTRITION [address] [place] [address] [place] [address] 09/22/2024 11:30 AM EDT Telemedicine [facility] MEDICINE [address] [place] [address] Marisa Livingston MD [address] [place], [place] [phone] documented as of this encounter Visit Diagnoses Not on filedocumented in this encounter Additional Health Concerns Assessment Noted Time PHQ-9 Depression Total Score: 17 025 9:47 AM EST documented as of this encounter Care Teams Bolt Labeler Relationship Specialty Start Date End Date Marisa Livingston MD [address] [place], [place] [phone] PCP - General Family Medicine 03/12/19 Perez Vergara, CHAPITO [address] [place] [address] Gas Pumping Station SupervisorField Education Director 06/30/24 documented as of this encounter
--- OUTSIDE RECORDS SUMMARY | 2024-07-30 15:05 | XMS_ITS | Encounter Summary ---
Author Organization [employer] Address 75 [facility] 7 [place] [address] Care Team Providers Care Watch Repairer Apprentice Name Role Phone Marisa Livingston MD Primary Care Provider + Perez Vergara RN Unavailable [phone] Reason for Visit * Reason Comments Care Coordination [facility] Stacey soliman telephone call outreach Encounter Details Date Type Department Care Team (Latest Contact Info) Description 07/14/2024 Patient Outreach [facility] MEDICINE [address] [place] [address] Marisa Livingston MD [address] [place] [address] Care Coordination ([facility] telephone call outreach) Social History Tobacco [...] outbound call to patient introducing herself from [facility] CM Department, in regards to offering CM-CHW program services. Patient's name and was confirmed. Patient agrees to participate in CHW- program for SDOH needs. SDOH screening completed: 07/14/24, CHW spoke to patient she is backed up with electricity and water bill, CHW recommended for her to [facility], she did apply for VOC, but she is still waiting to see if she is approved. CHW reinforced direct contact information for any additional questions or concerns and extended clinic hours on Mondays and Wednesdays, and Walk-In Urgent Care Located in [facility] of [facility].Patient provided with after-hours line for [facility], , which offer night time triage serviceand option to transfer to oil exploration engineer provider if needed. Patient verbalizes understanding, and able torepeat back to instructional writer. documented in this encounter Plan of Treatment Upcoming Encounters Date Type Department Care Team (Late st Contact Info) Description 08/06/2024 11:00 AM EDT Office Visit [facility] CHC ADULT DENTAL [address] [facility] [place] [address] Berlin Hagen, DMD [address] [place] [address] 08/06/2024 3:00 PM EDT Clinical Support [facility] DIABETES/NUTRITION [address] [place] [address] [place] [address] 09/22/2024 11:30 AM EDT Telemedicine [facility] MEDICINE [address] [place] [address] Marisa Livingston MD [address] [place] [address] documented as of this encounter Visit Diagnoses Not on filedocumented in this encounter Additional Health Concerns Assessment Noted Time PHQ-9 Depression Total Score: 17 025 9:47 AM EST documented as of this encounter Care Teams Watch Repairer Apprentice Relationship Specialty Start Date End Date Marisa Livingston MD [address] [place] [address] PCP - General Family Medicine 03/12/19 Perez Vergara RN [address] [place] [address] Senior Quality Control TechnicianAsphalt Paver 06/30/24 documented as of this encounter
--- OUTSIDE RECORDS SUMMARY | 2024-07-30 15:05 | XMS_ITS | Encounter Summary ---
Author Organization [employer] Address [address] [facility] [address] 7t [place] [address] Care Team Providers Care Nursing Home Manager Name Role Phone Marisa Livingston MD Primary Care Provider + Perez Vergara RN Unavailable [phone] Encounter Details Date Type Department Care Team ([facility] st Contact Info) Description 07/30/2024 Orders Only [facility] External Provider, [facility] Social History Tobacco Use Types Packs/Day Years [...] Description 08/06/2024 11:00 AM EDT Office Visit [facility] CHC ADULT DENTAL [address] [place] [address] Berlin Hagen, DMD 505 [place] [address] 08/06/2024 3:00 PM EDT Clinical Support [facility] DIABETES/NUTRITION 230 [place] [address] Mandi Pinedo, MEAGAN 230 [place] [address] 09/22/2024 11:30 AM EDT Telemedicine [facility] MEDICINE 230 [place] [address] Marisa Livingston MD 230 [place] [address] documented as of this encounter Procedures Procedure Name Priority Date/Time Associated Diagnosis Comments CT HEAD WO CONTRAST Routine 07/30/2024 1 1:39 AM EDT XR CHEST 2 VIEWS Routine 07/30/2024 11:2 8 AM EDT documented in this encounter Results * CT Head w/o Contrast (07/30/2024 11:39 AM EDT) Anatomical Region Laterality Modality Head, Neck Computed Tomogra phy 07/30/2024 11:3 9 AM EDT Narrative 07/30/2024 12:13 PM EDT ? [facility] ?[address] ?[place] [address] ? CT Scan Report ? Signed ? Patient: Cleo Rock ?MR#: ?? [id number] ? : 1990 ?Acct:[id number] ? Age/Sex: 33 / F ?ADM Date: 07/30/24 ? Loc: HO.ED ? Attending Dr: ? Ordering Physician: Caitie Wilkerson NP ?? Date of Service: 07/30/24 ?? Procedure(s): CT head/brain wo IV con ?? Accession Number(s): [id number] ? cc: Marisa Livingston MD; Caitie Wilkerson NP ? Report Number: ?? [id number]: Total DLP = ??706.00 mGy-cm ?? EXAMINATION: [...] DD/ 1139 ? TD/TT: 07/30/24 1153 ? Refrigeration Supervisor: ? 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 Donjackie, Stephania - 07/30/[address] [place] [address] [address] Scan Report Signed Patient: Cleo Rock JMR#: [id number] : 1990Acct:[id number] Age/Sex: 33 / FADM Date: 07/30/24 Loc: HO.ED Attending Dr: Ordering Physician: Caitie Wilkerson NP Date of Service: 07/30/24 Procedure(s): CT head/brain wo IV con Accession Number(s): [id number] cc: Marisa Livingston MD; Caitie Wilkerson NP Report Number: [id number]: Total DLP = 706.00 mGy-cm EXAMINATION: CT [...] Melchor Faria MD 07/30/2024 12:00 PM EDT RP Dictated By: Melchor Faria MD Signed By: <Electronically signed by Melchor Faria MD in OV> 07/30/24 1200 DD/ 1139 TD/TT: 07/30/24 1153 Refrigeration Supervisor: [facility] External Provider IMG CT PROCEDURES Final Result * XR Chest 2 Views (07/30/2024 11:28 AM EDT) Anatomical Region Laterality Modality Chest Radiographic Angelita ging 07/30/2024 11:2 8 AM EDT Narrative 07/30/2024 12:13 PM EDT ? [facility] ?[address] ?[place] [address] ?XRay Report ? Signed ? Patient: Cleo Rock ?MR#: ?? [id number] ? : 1990 ?Acct:[id number] ? Age/Sex: 33 / F ?ADM Date: 07/30/24 ? Loc: HO.ED ? Attending Dr: ? Ordering Physician: Caitie Wilkerson EQUINE PHARMACOLOGY TECHNICIAN ?? Date of Service: 07/30/24 ?? Procedure(s): XR chest 2V ?? Accession Number(s): [id number] ? cc: Marisa Livingston MD; Caitie Wilkerson [...] DD/ 1128 ? TD/TT: 07/30/24 1138 ? Refrigeration Supervisor: ? 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 Donstephyter, Image - 07/30/2024 [place] [address] XRay Report Signed Patient: Cleo Rock JMR#: [id number] : 1990Acct:[id number] Age/Sex: 33 / FADM Date: 07/30/24 Loc: HO.ED Attending Dr: Ordering Physician: Caitie Wilkerson NP Date of Service: 07/30/24 Procedure(s): XR chest 2V Accession Number(s): [id number] cc: Marisa Livingston MD; Caitie Wilkerson NP [...] 07/30/24 1148 DD/ 1128 TD/TT: 07/30/24 1138 Refrigeration Supervisor: [facility] External Provider IMG XR PROCEDURES Final Result documented in this encounter Visit Diagnoses Not on filedocumented in this encounter Additional Health Concerns Assessment Noted Time PHQ-9 Depression Total Score: 17 025 9:47 AM EST documented as of this encounter Care Teams Nursing Home Manager Relationship Specialty Start Date End Date Marisa Livingston MD 230 [place] [address] PCP - General Family Medicine 03/12/19 Perez Vergara, CHAPITO 505 [place] [address] Strategy DirectorApparatus Engineering Technologist 06/30/24 documented as of this encounter
--- OUTSIDE RECORDS SUMMARY | 2024-07-30 15:05 | XMS_ITS | Encounter Summary ---
Author Organization [employer] Address 75 [facility] 7t [place] [address] Care Team Providers Care Welder/Installer Name Role Phone Marisa Livingston MD Primary Care Provider + Perez Vergara RN Unavailable [phone] Encounter Details Date Type Department Care Team ([facility] st Contact Info) Description 07/30/2024 Population Health Risk Score [employer] Care [facility] (C3) Department 75 [facility] 7 [place] [phone] Provider, Population Health Generic Social History Tobacco Use Types Packs/Day Years [...] Description 08/06/2024 11:00 AM EDT Office Visit [facility] CHC ADULT DENTAL 505 [place] [address] Berlin Hagen, DMD 505 [place] [address] 08/06/2024 3:00 PM EDT Clinical Support [facility] DIABETES/NUTRITION 230 [place] [address] Mandi Pinedo, MEAGAN 230 [place] [address] 09/22/2024 11:30 AM EDT Telemedicine [facility] MEDICINE [address] [place] [address] Marisa Livingston MD [address] [place] [address] documented as of this encounter Visit Diagnoses Not on filedocumented in this encounter Additional Health Concerns Assessment Noted Time PHQ-9 Depression Total Score: 17 025 9:47 AM EST documented as of this encounter Care Teams Welder/Installer Relationship Specialty Start Date End Date Marisa Livingston MD [address] [place] [address] PCP - General Family Medicine 03/12/19 Perez Vergara RN [address] [place] [address] Proposal RepMotor Operator 06/30/24 documented as of this encounter
--- OUTSIDE RECORDS SUMMARY | 2024-07-30 15:05 | XMS_ITS | Encounter Summary ---
Author Organization [email or web address] Address 75 [facility] 7 [place] [address] Care Team Providers Care Network Designer Name Role Phone Marisa Livingston MD Primary Care Provider + Perez Vergara RN Unavailable [phone] Reason for Visit * Reason Comments Med Refill Encounter Details Date Type Department Care Team (Late st Contact Info) Description 03/04/2024 Refill [facility] MEDICINE [address] [place] [address] Marisa Livingston MD 230 [place] [address] Social History Tobacco Use Types Packs/Day Years [...] [facility] [address] [place] [address] Berlin Hagen, DMD 505 [place] [address] 08/06/2024 3:00 PM EDT Clinical Support [facility] DIABETES/NUTRITION [address] [place] [address] Mandi Pinedo, RD 230 [place] [address] 09/22/2024 11:30 AM EDT Telemedicine [facility] MEDICINE [address] [place] [address] Marisa Livingston MD [address] [place] [address] documented as of this encounter Visit Diagnoses Not on filedocumented in this encounter Additional Health Concerns Assessment Noted Time PHQ-9 Depression Total Score: 17 024 9:31 AM EST documented as of this encounter Care Teams Network Designer Relationship Specialty Start Date End Date Marisa Livingston MD [address] [place] [address] PCP - General Family Medicine 03/12/19 Perez Vergara RN [address] [place] [address] IRAJ Black [address] Press Operator Heavy DutyTree Driller 06/30/24 documented as of this encounter
--- OUTSIDE RECORDS SUMMARY | 2024-07-30 15:06 | XMS_ITS | Encounter Summary ---
Author Organization [employer] Address 75 [facility] 7 [place] [address] Care Team Providers Care Records Manager Name Role Phone Marisa Livingston MD Primary Care Provider + Perez Vergara RN Unavailable [phone] Reason for Visit * Reason Onset Date Comments Chart prep 07/01/2024 Encounter Details Date Type Department Care Team (Late st Contact Info) Description 07/01/2024 Telephone [facility] MEDICINE [address] [place] [address] Marisa Livingston MD 230 [place] [address] Chart prep Social History Tobacco Use Types [...] 11:00 AM EDT Office Visit [facility] CHC ADULT DENTAL [address] [place] [address] Berlin Hagen, DMD [address] [place] [address] 08/06/2024 3:00 PM EDT Clinical Support [facility] DIABETES/NUTRITION [address] [place] [address] Mandi Pinedo, MEAGAN [address] [place] [address] 09/22/2024 11:30 AM EDT Telemedicine [facility] MEDICINE [address] [place] [address] Marisa Livingston MD 230 [place] [address] documented as of this encounter Visit Diagnoses Not on filedocumented in this encounter Additional Health Concerns Assessment Noted Time PHQ-9 Depression Total Score: 17 024 9:31 AM EST documented as of this encounter Care Teams Records Manager Relationship Specialty Start Date End Date Marisa Livingston MD [address] [place] [address] PCP - General Family Medicine 03/12/19 Perez Vergara RN [address] [place] [address] Senior Net Web DeveloperBurglar Alarm Mechanic 06/30/24 documented as of this encounter
--- OUTSIDE RECORDS SUMMARY | 2024-07-30 15:06 | XMS_ITS | Encounter Summary ---
Author Organization [email or web address] Address 75 [facility] 7 [place] [address] Care Team Providers Care Escrow Agent Name Role Phone Marisa Livingston MD Primary Care Provider + Perez Vergara RN Unavailable [phone] Reason for Visit * Reason Onset Date Comments no show 07/02/2024 Encounter Details Date Type Department Care Team (Late st Contact Info) Description 07/02/2024 Telephone [facility] MEDICINE 230 [place] [address] Marisa Livingston MD 230 [place] [address] no show Social History Tobacco Use Types [...] Description 08/06/2024 11:00 AM EDT Office Visit [facility] CHC ADULT DENTAL [address] [place] [address] Berlin Hagen, BERNIE 505 [place] [address] 08/06/2024 3:00 PM EDT Clinical Support [facility] DIABETES/NUTRITION 230 [place] [address] [place] [address] 09/22/2024 11:30 AM EDT Telemedicine [facility] MEDICINE 230 [place] [address] Marisa Livingston MD [address] [place] [address] documented as of this encounter Visit Diagnoses Not on filedocumented in this encounter Additional Health Concerns Assessment Noted Time PHQ-9 Depression Total Score: 17 024 9:31 AM EST documented as of this encounter Care Teams Escrow Agent Relationship Specialty Start Date End Date Marisa Livingston MD 230 [place] [address] PCP - General Family Medicine 03/12/19 Perez Vergara RN [address] [place] [address] Statistics TutorBehavioral Health Rn 06/30/24 documented as of this encounter
--- OUTSIDE RECORDS SUMMARY | 2024-07-30 15:06 | XMS_ITS | Encounter Summary ---
Author Organization [employer] Address [address] [place] [address] 7 [place] [address] Care Team Providers Care Terminal Operations Manager Name Role Phone Marisa Livingston MD Primary Care Provider + Perez Vergara RN Unavailable [phone] Encounter Details Date Type Department Care Team (Latest Contact Info) Description 02/27/2022 Abstract [facility] CONVERSIONS Dental, Provider, DDS Social History [...] [facility] [address] [place] [address] Berlin Hagen, DMD 505 [place] [address] 08/06/2024 3:00 PM EDT Clinical Support [facility] DIABETES/NUTRITION 230 [place] [address] Mandi Pinedo, RD 230 [place] [address] 09/22/2024 11:30 AM EDT Telemedicine [facility] MEDICINE 230 [place] [address] Marisa Livingston MD 230 [place] [address] documented as of this encounter Visit Diagnoses Not on filedocumented in this encounter Care Teams Terminal Operations Manager Relationship Specialty Start Date End Date Marisa Livingston MD 230 [place] [address] PCP - General Family Medicine 03/12/19 Perez Vergara RN [address] [place] [address] Spud SorterEdge Stainer 06/30/24 documented as of this encounter
--- OUTSIDE RECORDS SUMMARY | 2024-07-30 15:06 | XMS_ITS | Encounter Summary ---
Author Organization [employer] Address [address] [place] [address] 7 [place] [address] Care Team Providers Care Lip Of Shank Cutter Name Role Phone Marisa Livingston MD Primary Care Provider + Perez Vergara RN Unavailable [phone] Encounter Details Date Type Department Care Team (Late st Contact Info) Description 06/27/2022 Abstract [facility] ADULT DENTAL 230 [place] [address] Jeramie Treadwell DDS [address] [place] [address] Social History Tobacco Use Types Packs/Day Years [...] 11:00 AM EDT Office Visit [facility] ADULT DENTAL 505 [place], [place] [phone] Berlin Hagen DMD 505 [place] [address] 08/06/2024 3:00 PM EDT Clinical Support [facility] DIABETES/NUTRITION [address] [place] [address] [place] [address] 09/22/2024 11:30 AM EDT Telemedicine [facility] MEDICINE [address] [place] [address] Marisa Lviingston MD 230 [place], [place] [phone] documented as of this encounter Visit Diagnoses Not on filedocumented in this encounter Care Teams Lip Of Shank Cutter Relationship Specialty Start Date End Date Marisa Livingston MD [address] [place], [place] [phone] PCP - General Family Medicine 03/12/19 Perez Vergara, CHAPITO 505 [facility] [place] [address] Heel Emery BufferBill Clerk 06/30/24 documented as of this encounter
--- OUTSIDE RECORDS SUMMARY | 2024-07-30 15:06 | XMS_ITS | Encounter Summary ---
Author Organization [employer] Address 75 [facility] 7 [place] [address] Care Team Providers Care Jewelry Maker Name Role Phone Marisa Livingston MD Primary Care Provider + Perez Vergara RN Unavailable [phone] Reason for Visit * Reason Onset Date Comments Appointment Request 07/09/2024 Encounter Details Date Type Department Care Team ([facility] st Contact Info) Description 07/09/2024 Telephone [facility] MEDICINE 230 [place] [address] Marisa Livingston MD 230 [place] [address] Appointment Request Social History Tobacco Use Types [...] to reschedule appt with pcp. Contact pt, pashto documented in this encounter Plan of Treatment Upcoming Encounters Date Type Department Care Team ([facility] st Contact Info) Description 08/06/2024 11:00 AM EDT Office Visit [facility] CHC ADULT DENTAL [address] [place] [address] Berlin Hagen, DMD [address] [place] [address] 08/06/2024 3:00 PM EDT Clinical Support [facility] DIABETES/NUTRITION [address] [place] [address] Mandi Pinedo, MEAGAN [address] [place] [address] 09/22/2024 11:30 AM EDT Telemedicine [facility] MEDICINE [address] [place] [address] Marisa Livingston MD 230 [place] [address] documented as of this encounter Visit Diagnoses Not on filedocumented in this encounter Additional Health Concerns Assessment Noted Time PHQ-9 Depression Total Score: 17 024 9:31 AM EST documented as of this encounter Care Teams Jewelry Maker Relationship Specialty Start Date End Date Marisa Livingston MD 230 [place] [address] PCP - General Family Medicine 03/12/19 Perez Vergara RN [address] [place] [address] Tack WelderPipe Manufacture Supervisor 06/30/24 documented as of this encounter
--- OUTSIDE RECORDS SUMMARY | 2024-07-30 15:06 | XMS_ITS | Encounter Summary ---
Author Organization [employer] Address [address] [place] [address] 7 [place] [address] Care Team Providers Care Mail Carrier Technician Name Role Phone Marisa Livingston MD Primary Care Provider + Perez Vergara RN Unavailable [phone] Encounter Details Date Type Department Care Team (Latest Contact Info) Description 03/26/2019 Abstract [facility] CONVERSIONS Dental, Provider, DDS Social [...] Description 08/06/2024 11:00 AM EDT Office Visit [facility] CHC ADULT DENTAL [address] [place] [address] Berlin Hagen, DMD 505 [place] [address] 08/06/2024 3:00 PM EDT Clinical Support [facility] DIABETES/NUTRITION [address] [place] [address] Mandi Pinedo, MEAGAN [address] [place] [address] 09/22/2024 11:30 AM EDT Telemedicine [facility] MEDICINE [address] [place] [address] Marisa Livingston MD [address] [place] [address] documented as of this encounter Visit Diagnoses Not on filedocumented in this encounter Care Teams Mail Carrier Technician Relationship Specialty Start Date End Date Marisa Livingston MD [address] [place] [address] PCP - General Family Medicine 03/12/19 Perez Vergara RN [address] [place] [address] Tire SetterCdc Associate 06/30/24 documented as of this encounter
[2024-07-30] MEDS: Ketorolac Tromethamine 30 MG/ML VIAL IM (16:00)
[2024-07-30 16:31] LABS: Basophils Percent Auto 0.5 % (0-2); Eosinophils Absolute Auto 0.3 X10*3/uL (0.0-0.4); Eosinophils Percent Auto 5.9 % (0-4); Hematocrit 30.3 % (37.0-47.0); Imm Gran Abs Auto 0.04 X10*3/uL (0.00-0.03); Imm Gran Pct Auto 0.7 % (0.0-0.4); Lymphocytes Absolute Auto 1.3 X10*3/uL (1.2-4.9); Lymphocytes Percent Auto 23.4 % (20-40); MANUAL DIFF FLAG NO; Mean Corpuscular HGB Conc 29.7 g/dl (31.0-35.0); Mean Corpuscular Hemoglobin 19.6 pg (27.0-33.0); Mean Platelet Volume 9.3 fL (9.4-12.3); Monocytes Absolute Auto 0.4 X10*3/uL (0.1-1.2); Monocytes Percent Auto 7.7 % (2-11); Neutrophils Absolute Auto 3.5 x10*3/uL (2.0-8.3); Neutrophils Percent Auto 61.8 % (45-73); Platelet Count 343 X10*3/uL (160-400); Red Blood Count 4.59 X10*6/uL (4.20-5.50); White Blood Count 5.7 X10*3/uL (4.8-10.8)
[2024-07-30 16:37] LABS: Prothrombin Time 12.1 SEC (10.9-12.4)
[2024-07-30 16:40] LABS: Partial Thromboplastin Time 28.9 SEC (26.0-36.8)
[2024-07-30 16:54] LABS: Alanine Aminotransferase 23 U/L (0-31); Albumin Level 4.5 g/dL (3.5-5.0); Alkaline Phosphatase 77 U/L (39-117); Anion Gap 10 (12-20); Aspartate Amino Transferase 20 U/L (5-31); Bilirubin Total 0.5 mg/dL (0.0-1.0); Blood Urea Nitrogen 7 mg/dL (9-16); Calcium 9.8 mg/dL (8.4-10.2); Carbon Dioxide 27 mmol/L (22-29); Chloride 109 mmol/L (96-108); Estimated Glomerular Filt Rate > 60; Glucose Random 92 mg/dL (60-115); Sodium 142 mmol/L (135-145); Total Protein 8.4 g/dL (6.5-8.0)
[2024-07-30 16:57] LABS: Troponin-I High Sensitivity < 2.7 ng/L (<3.5-17.0)
[2024-07-30 17:50] VITALS: BP 120/79; PULSE 78; RESP 18; TEMP 36.9; O2SAT 98
--- NOTE | 2024-07-30 17:53 | PC.NURSE ---
Pt has been ambulatory in department w/o distress. no neuro deficits or weakness in extremities. states pain is improved since arrival.
[2024-07-30 18:22] VITALS: BP 120/79; PULSE 78; RESP 18; TEMP 36.9; O2SAT 98
== END 2024-07-30 18:22 | disposition home or self-care (01) ==
PROVIDERS: Physician Assistant; Emergency Provider Emergency Medicine; PCP Internal Medicine
DX: S29.9XXA Unspecified injury of thorax, initial encounter (principal); R51.9 Headache, unspecified; R07.89 Other chest pain; M54.2 Cervicalgia; M79.10 Myalgia, unspecified site; V43.52XA Car driver injured in collision with other type car in traffic accident, initial encounter; Y93.9 Activity, unspecified; Y92.410 Unspecified street and highway as the place of occurrence of the external cause; Y99.8 Other external cause status; Z79.899 Other long term (current) drug therapy; Z87.891 Personal history of nicotine dependence
CPT/HCPCS: 36415; 70450; 71046; 72125; 80053; 84484; 85025; 85610; 85730; 93005; 96372; 99284; J1885

== ENCOUNTER → 2024-07-30 11:15 | Outpatient (BNV) | payer MEDICAID, SELFPAY | PROVIDERS: Emergency Provider Emergency Medicine; PCP Internal Medicine; Visit Provider Internal Medicine | DX: R07.9 Chest pain, unspecified (principal) | CPT/HCPCS: 93010 ==

== ENCOUNTER → 2024-07-30 11:28 | Outpatient (BNV) | payer MEDICAID, SELFPAY | PROVIDERS: PCP Internal Medicine; Visit Provider Radiology Diagnostic Radiology | DX: R07.9 Chest pain, unspecified (principal); R51.9 Headache, unspecified; Z03.89 Encounter for observation for other suspected diseases and conditions ruled out | CPT/HCPCS: 70450; 71046; 72125 ==

== ENCOUNTER 2024-08-03 08:15 | Outpatient (RCR) | payer MEDICAID, SELFPAY ==
[2024-07-29 07:36] VITALS: BP 117/77; PULSE 82; RESP 18; TEMP 37.4
[2024-07-29] MEDS: Ferric Carboxymaltose 750 MG in 0.9 % Sodium Chloride 250 ML 1060 MG IV (08:15)
[2024-08-03 08:20] VITALS: BP 115/71; PULSE 75; RESP 20; TEMP 36.1; O2SAT 100
[2024-08-03] MEDS: Ferric Carboxymaltose 750 MG in 0.9 % Sodium Chloride 250 ML 1060 MG IV (09:03)
[2024-08-03] MEDS: 0.9 % Sodium Chloride Flush 10 ML SYRINGE 5 ML IVFLUSH (09:22)
== END 2024-08-03 09:39 | disposition home or self-care (01) ==
LOC: HO.INF 08:15
PROVIDERS: Visit Provider Nurse Practitioner Family
DX: D64.9 Anemia, unspecified (principal)
CPT/HCPCS: 96365; J1439

== ENCOUNTER 2024-09-05 11:36 | Emergency (ER) | payer MEDICAID, SELFPAY ==
--- NOTE | ~2024-09-05 | XR_ITS ---
CLINICAL HISTORY: pain swelling Exam: PA, lateral, scaphoid, and oblique views of the left wrist. Comparison: Left hand radiographs from same time. Findings: There is 5 mm of ulnar negative variance. Bony alignment is otherwise anatomic. No sclerosis is seen within the lunate to suggest avascular necrosis. No acute fracture. No erosions. Impression: 1. No acute findings. 2. Ulnar negative variance without findings to suggest avascular necrosis of the lunate. This document has been electronically signed by: Nicholas Bean MD on 09/05/2024 13:44:23
--- NOTE | ~2024-09-05 | XR_ITS ---
CLINICAL HISTORY: pain 3 and 4 digit swelling for a couple of weeks Exam: AP, lateral, and oblique views of the left hand. Comparison: Left wrist radiographs from same time. Findings: Alignment of the metacarpophalangeal joints is anatomic. There is a 3 mm lucency at the ulnar base of the proximal phalanx of the ring finger, likely an erosion. Subtle erosion is also suggested at the ulnar base of the proximal phalanx of the long finger. There is soft tissue swelling about the long and ring fingers, especially at the PIP joint of the long finger. No fracture or erosion is seen at that site. No malalignment. Impression: 1. No acute fracture. 2. Subtle erosions seen at the ulnar base of the proximal phalanges of the ring and long fingers. 3. Soft tissue swelling about the long and ring fingers without erosive change of the interphalangeal joints. This document has been electronically signed by: Nicholas Bean MD on 09/05/2024 13:44:30
[2024-09-05 11:37] VITALS: BP 100/64; PULSE 88; RESP 16; TEMP 36.5; O2SAT 100; BMI 33.3
--- NOTE | 2024-09-05 11:38 | ED_ITS ---
HPI - Extremity Injury (Upper) General Chief Complaint: Extremity Injury, Upper Stated Complaint: fall yesterday, L wrist pain Time Seen by Provider: 09/05/24 11:51 Source: patient, RN notes reviewed and old records reviewed Mode of arrival: ambulatory Limitations: no limitations History of Present Illness ED Provider: Rock HPI narrative: Patient is a 33-year-old female presenting to the emergency department with complaint of left hand and wrist pain after a fall while working several days ago. States primary area of pain is left middle finger, reports swelling and decreased range of motion. Has been using naproxen. Denies any numbness or tingling. Denies head strike or loss of consciousness at time of fall. She is not anticoagulated. MD complaint: injury to: left and hand Onset (ago): day(s) Related Data Home Medications ?Medication ?Instructions ?Recorded ?Confirmed oxcarbazepine 150 mg tablet 150 mg PO BID 01/09/23 07/16/24 sumatriptan succinate 100 mg tablet 0 mg PO DAILY 01/09/23 07/16/24 trazodone 50 mg tablet 50 mg PO DAILY PRN insomnia 01/09/23 07/16/24 aripiprazole 5 mg tablet 5 mg PO DAILY 08/05/23 07/16/24 bupropion HCl 150 mg 24 hr tablet, 150 mg PO DAILY 08/05/23 07/16/24 extended release Previous Rx's ?Medication ?Instructions ?Recorded albuterol sulfate 90 mcg/actuation 2 puff inhalation Q4-6H PRN 03/23/22 aerosol inhaler shortness of breath or wheezing #8.5 grams benzonatate 100 mg capsule 100 mg PO TID PRN cough #12 caps 03/23/22 fluticasone propionate 230 2 puff inhalation BID 30 days #12 02/12/23 mcg-salmeterol 21 mcg/actuation grams HFA inhaler (Advair HFA) benralizumab 30 mg/mL subcutaneous 30 mg subcut Q8W 56 days #1 mL 08/15/23 syringe benzonatate 100 mg capsule 100 mg PO TID PRN cough #20 caps 05/26/24 ipratropium 0.5 mg-albuterol 3 mg 3 ml inhalation Q4-6H PRN wheezing 07/01/24 (2.5 mg base)/3 mL nebulization #180 mL soln furosemide 40 mg tablet 40 mg PO QAM #30 tabs 07/22/24 naproxen 500 mg tablet 500 mg PO BID PRN pain 7 days #14 07/30/24 tabs Allergies Allergy/AdvReac Type Severity Reaction Status Date / Time latex Allergy Rash Verified 09/05/24 11:38 Review of Systems Review of Systems: As per HPI Yes all other systems are reviewed and are negative Constitutional: Constitutional: Reports as per HPI [facility] Past Medical History Medical History Asthma Family History Family History Daughter Cancer of brain Maternal Grandfather Colon cancer Paternal Grandfather Throat cancer Mother Heart problem Social History Social History Household Members: Children Housing: House Alcohol intake: never Patient Tobacco Use Status: Former Tobacco user Advance Directives: No Advance Directives Information Provided: Yes Current occupational status: employed Gender identity: Female Physical Exam Vital Signs: Vital Signs: Last Vital Signs Temp 97.7 F 09/05/24 11:37 Pulse 88 09/05/24 11:37 Resp 16 09/05/24 11:37 BP 100/64 09/05/24 11:37 Pulse Ox 100 09/05/24 11:37 O2 Del Method Room Air 09/05/24 11:37 BMI result Body Mass Index 33.3 Vital signs have been reviewed and appear to be correct. Blood pressure normal. Heart rate normal. Respiratory rate normal. Temperature normal. Oxygen saturation normal. Const: General: cooperative, healthy appearing and no acute distress Orientation/consciousness: oriented to person, oriented to place, oriented to time and patient oriented x3 Limitations: no limitations HEENT: Head: Yes normocephalic and Yes atraumatic Ears: external ears normal General nose exam: Normal external nose present Face and sinus: Yes face symmetric Mouth: oropharynx normal and moist mucous membranes Throat: Yes uvula midline Eyes: Pupils: Equal, round and reactive pupils present Neck: Neck: Yes normal visual inspection and Yes supple Resp: Effort & Inspection: normal respiratory effort and able to speak in complete sentences Auscultation: clear to auscultation bilaterally Cardio: Rate: regular rate Rhythm: regular rhythm Heart sounds: S1 normal heart sound present and S2 normal heart sound present GI: Palpation (GI): Soft to palpation and nontender Auscultation: normoactive bowel sounds : General: Yes no CVA tenderness Back/Spine/Pelvis: Back: no CVA tenderness Skin: General skin exam: elasticity normal and turgor normal Neuro: General: oriented to person, oriented to place, oriented to time, patient oriented x3, moves all extremities, no focal motor deficits and CN's II- XI intact bilaterally Cranial nerves: Yes Equal, round and reactive pupils present Cognition (Neuro): normal cognition Extrem: General: Yes full ROM, Yes no pedal edema and Yes no calf tenderness Left upper extremity: wrist distal Details: normal to inspection, normal ROM and normal vascular exam; no tenderness, no swelling and no ecchymosis and hand Details: normal capillary refill, tenderness Location: of the 3rd digit Location: involving the entire digit, vascular exam Details: radial pulse present and normal capillary refill and swelling Location: of the 3rd digit Location: involving the entire digit; ROM of fingers abnormal (decreased active flexion 3rd finger r/t pain and swelling) Psych: Mental Status: mental status grossly normal Affect: normal affect Thought process: Normal thought process present Course Course Course Narrative: This is an RME performed by Karen Luke CNP: Additional HPI, ROS, PE not included below will be deferred to primary provider. Patient is a 33 y.o. female right hand dominant who presents for evalutaiton of left wrist and hand pain s/p mechanical fall few days ago. Naproxen helps the pain a little bit Plan: XR Medications Administered Discontinued Medications Generic Name Dose Route Start Last Admin Trade Name Jackie PRN Reason Stop Dose Admin Acetaminophen 975 mg 09/05/24 12:45 09/05/24 13:25 Acetaminophen 325 Mg Tablet PO 09/05/24 12:46 975 mg ONCE ONE Administration Medical Decision Making Medical Decision Making MDM Narrative: Patient is a 33-year-old female presenting to the emergency department with complaint of left hand and wrist pain after a fall while working several days ago. On exam patient is awake, A+Ox3, VS WNL, afebrile, normal neurological exam without focal deficits, physical exam findings as above. Given reported symptoms and physical exam findings, initial differential includes but is not limited to left wrist, hand, finger contusion versus fracture. X-ray notable for no acute fracture left hand or wrist. My interpretation is in agreement with the radiologist's interpretation. Patient updated on results and all questions answered. Left 3rd finger splinted with positive CMS before and after application of the splint. Advised patient to use Tylenol, ibuprofen, ice intermittently. Will refer to Dr. Jacob for ongoing symptoms. Return precautions discussed. Patient verbalized understanding of and agreement with plan. Differential Diagnosis Differential Diagnoses: The differential diagnosis associated with the presentation includes As per [facility] Independent Interpretation I performed an independent interpretation of an: Plain X-Ray Interpretation: No acute fracture left hand or wrist Radiology Impression Discussion of test interpretation with radiology: I have reviewed the radiologist's reading. Radiologist Impression: Exam: PA, lateral, scaphoid, and oblique views of the left wrist. Comparison: Left hand radiographs from same time. Findings: There is 5 mm of ulnar negative variance. Bony alignment is otherwise anatomic. No sclerosis is seen within the lunate to suggest avascular necrosis. No acute fracture. No erosions. Impression: 1. No acute findings. 2. Ulnar negative variance without findings to suggest avascular necrosis of the lunate. Exam: AP, lateral, and oblique views of the left hand. Comparison: Left wrist radiographs from same time. Findings: Alignment of the metacarpophalangeal joints is anatomic. There is a 3 mm lucency at the ulnar base of the proximal phalanx of the ring finger, likely an erosion. Subtle erosion is also suggested at the ulnar base of the proximal phalanx of the long finger. There is soft tissue swelling about the long and ring fingers, especially at the PIP joint of the long finger. No fracture or erosion is seen at that site. No malalignment. Impression: 1. No acute fracture. 2. Subtle erosions seen at the ulnar base of the proximal phalanges of the ring and long fingers. 3. Soft tissue swelling about the long and ring fingers without erosive change of the interphalangeal joints. External Record Review External record reviewed: Inpatient record, Office record and Outpatient record Procedures Orthopedic Splinting/Casting Injury #1: Side: left Upper Extremity Injury Location: finger Upper Extremity Immobilizer: finger (other) Discharge Plan Discharge Clinical Impression: Contusion of left middle finger Patient Disposition: Home, Self-Care Instructions: Contusion in Adults (ED) Additional Instructions: You have been evaluated in the emergency department today for left hand pain. Your evaluation did not find evidence of medical conditions requiring emergent intervention at this time. We have provided a splint for you to use while your finger/hand heals. Please rest, ice, and elevate your hand, and resume normal activities as tolerated. We recommend you take 600mg ibuprofen every 6 hours or 650mg Tylenol every 6 hours as needed for pain. If Needed you can alternate t hese medications as they take 1 medication every 3 hours. For instance at noon take ibuprofen, then at 3:00 p.m. take Tylenol, then at 6:00 p.m. take ibuprofen. Please schedule an appointment for follow-up with your primary care provider this week. Return to the emergency department if you experience worsening pain, numbness, tingling, change of color in your fingers, or any other concerning symptoms. If symptoms do not improve over the next week, follow up with Dr. Jacob. Prescriptions: No Action benralizumab 30 mg/mL syringe 30 mg subcut Q8W 56 Days Qty: 1 11RF albuterol sulfate 90 mcg/actuation HFA aerosol inhaler 2 puff inhalation Q4-6H PRN (Reason: shortness of breath or wheezing) Qty: 8.5 0RF benzonatate 100 mg capsule 100 mg PO TID PRN (Reason: cough) Qty: 12 0RF benzonatate 100 mg capsule 100 mg PO TID PRN (Reason: cough) Qty: 20 0RF naproxen 500 mg tablet 500 mg PO BID PRN (Reason: pain) 7 Days Qty: 14 0RF fluticasone propion-salmeterol [Advair HFA] 230-21 mcg/actuation HFA aerosol inhaler 2 puff inhalation BID 30 Days Qty: 12 6RF ipratropium-albuterol 0.5 mg-3 mg(2.5 mg base)/3 mL solution for nebulization 3 ml inhalation Q4-6H PRN (Reason: wheezing) Qty: 180 6RF sumatriptan succinate 100 mg tablet 0 mg PO DAILY oxcarbazepine 150 mg tablet 150 mg PO BID trazodone 50 mg tablet 50 mg PO DAILY PRN (Reason: insomnia) bupropion HCl 150 mg tablet extended release 24 hr 150 mg PO DAILY aripiprazole 5 mg tablet 5 mg PO DAILY furosemide 40 mg tablet 40 mg PO QAM Qty: 30 0RF Referrals: Janeth Jacob MD [Physician] - Stand Alone Forms: Work/School Release Print Language: Frisian
--- NOTE | 2024-09-05 12:41 | PC.NURSE ---
patient a&ox3, c/o 02/25 lt wrist area pain, pt states she took naprocen this morning around 0930 am, will notify provider, pt awaiting results of radiology
[2024-09-05] MEDS: Acetaminophen 325 MG TABLET 975 MG PO (13:25)
--- NOTE | 2024-09-05 13:27 | PC.NURSE ---
pt medicated with for 10/10 lt wrist pain
[2024-09-05 14:39] VITALS: BP 107/80; PULSE 80; RESP 18; TEMP 36.1; O2SAT 99
== END 2024-09-05 14:39 | disposition home or self-care (01) ==
PROVIDERS: Emergency Provider Emergency Medicine Emergency Medical Services; PCP Internal Medicine
DX: S60.032A Contusion of left middle finger without damage to nail, initial encounter (principal); W19.XXXA Unspecified fall, initial encounter; Y93.9 Activity, unspecified; Y92.9 Unspecified place or not applicable; Y99.9 Unspecified external cause status; M25.532 Pain in left wrist; J45.909 Unspecified asthma, uncomplicated; Z79.899 Other long term (current) drug therapy
CPT/HCPCS: 73110; 73120; 99283

== ENCOUNTER → 2024-09-05 11:38 | Outpatient (BNV) | payer MEDICAID, SELFPAY | PROVIDERS: Emergency Provider Emergency Medicine Emergency Medical Services; PCP Internal Medicine; Visit Provider Radiology Diagnostic Radiology | DX: M25.532 Pain in left wrist (principal); M79.642 Pain in left hand | CPT/HCPCS: 73110; 73120 ==

== ENCOUNTER 2024-09-22 12:54 | Outpatient (REF) | payer MEDICAID, SELFPAY ==
--- NOTE | ~2024-09-22 | XR_ITS ---
EXAMINATION: XR HAND 3 OR MORE VIEWS LEFT HISTORY: M79.642 - Pain in left hand COMPARISON: Comparison is made with the prior examination dated 09/05/2024. FINDINGS: Three views of the left hand are submitted. Osseous mineralization is normal. There is no fracture or dislocation. The joint spaces are preserved. Again seen is a tiny erosion involving the ulnar aspect of the base of the proximal phalanx of the 4th finger. The soft tissues are unremarkable. XR/XR hand LT min 3V IMPRESSION: Stable erosion of the ulnar aspect of the base of the proximal phalanx of the ring finger. No acute abnormality is seen. Electronically signed by: Melchor Faria MD 09/22/2024 02:17 PM EDT
--- OUTSIDE RECORDS SUMMARY | 2024-09-22 14:03 | XMS_ITS | Clinical Summary ---
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 Procedure(s): CT head/brain wo IV con ?? Accession Number(s): [id number] ? cc: Marisa Livingston MD; Caitie Wilkerson NP ? Report Number: ?? [id number]: Total DLP = ??706.00 mGy-cm ?? EXAMINATION: [...] DD/ 1139 ? TD/TT: 07/30/24 1153 ? Construction Consultant: ? 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 Donotuseinterpreter, Image - 07/30/[address] [address] [address] Scan Report Signed Patient: Cleo Rock JMR#: [id number] : 1990Acct:[id number] Age/Sex: 33 / FADM Date: 07/30/24 Loc: HO.ED Attending Dr: Ordering Physician: Caitie Wilkerson NP Date of Service: 07/30/24 Procedure(s): CT head/brain wo IV con Accession Number(s): [id number] cc: Marisa Livingston MD; Caitie Wilkerson NP Report Number: [id number]: Total DLP = 706.00 mGy-cm EXAMINATION: CT [...] 07/30/24 1200 DD/ 1139 TD/TT: 07/30/24 1153 Construction Consultant: [facility] External Provider IMG CT PROCEDURES Final Result * XR Chest 2 Views (07/30/2024 11:28 AM EDT) Anatomical Region Laterality Modality Chest Radiographic Angelita ging 07/30/2024 11:2 8 AM EDT Narrative 07/30/2024 12:13 PM EDT ? [facility] ?[address] ?[place], [place] [address] ?XRay Report ? Signed ? Patient: Cleo Rock ?MR#: ?? [id number] ? : 1990 ?Acct:[id number] ? Age/Sex: 33 / F ?ADM Date: 07/30/24 ? Loc: HO.ED ? Attending Dr: ? Ordering Physician: Caitie Wilkerson NP ?? Date of Service: 07/30/24 ?? Procedure(s): XR chest 2V ?? Accession Number(s): [id number] ? cc: Marisa Livingston MD; Caitie Wilkerson [...] DD/ 1128 ? TD/TT: 07/30/24 1138 ? Construction Consultant: ? 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 Donotuseinterpreter, Image - 07/30/[address] [address] XRay Report Signed Patient: Cleo Rock JMR#: [id number] : 1990Acct:[id number] Age/Sex: 33 / FADM Date: 07/30/24 Loc: HO.ED Attending Dr: Ordering Physician: Caitie Wilkerson NP Date of Service: 07/30/24 Procedure(s): XR chest 2V Accession Number(s): [id number] cc: Marisa Livingston MD; Caitie Wilkerson NP [...] 07/30/24 1148 DD/ 1128 TD/TT: 07/30/24 1138 Construction Consultant: [facility] External Provider IMG XR PROCEDURES Final Result * T-SPOT??.TB (07/22/2024 10:48 AM EST) [facility] T Spot TB Negative Negative [facility] Comment:A negative test resu lt [...] as aquantitative test. TS PANEL A 0 [facility] TS PANEL B 1 [facility] Negative Control Passed [facility] Positive Control Passed [facility] Comment:For additional infor matjaye, please refer tohttp://education.[employer]/faq/FRR406(This link is being provided for informational/educational purposes only.)THIS TEST WAS PERFORMED AT:[employer] [id number] [place] [address]ZPMIYGUKHUSHI SHAY MD,PHD 07/22/2024 10:4 8 AM EST 07/22/2024 11:51 AM EST us Marisa Livingston MD LAB BLOOD ORDERABLES Fin al Result [facility] [address] [place] [phone] * (ABNORMAL) Basic Metabolic Panel (07/22/2024 10:48 AM EST) Sodium 139 135 - 145 mmol/L [facility] Potassium 3.8 3.3 - 5.1 mmol/L [facility] Chloride 109(H) 96 - 108 mmol/L [facility] Carbon Dioxide 25 22 - 29 mmol/L [facility] Anion Gap 9(L) 12 - 20 [facility] Urea Nitrogen (BUN) 8(L) 9 - 16 mg/dL [facility] Creatinine, Serum 0.58 0.5 - 1.4 mg/dL [facility] Estimated Glomerular Filt Rate >60 [facility] Comment:Chronic Kidney Disea se: Estimated GFR < 60 mL/min/1.59x9Soohek Kidney Disease: Estimated GFR < 15 mL/min/1.73m2 Glucose 91 60 - 115 mg/dL [facility] Calcium 9.5 8.4 - 10.2 mg/dL [facility] Blood Venous blood specimen / Unknown 07/22/2024 10:48 AM EST 07/22/2024 11:51 AM EST us Marisa Livingston MD LAB BLOOD ORDERABLES Fin al Result [facility] [address] [place] [phone] * Pap Smear (08/05/2023 3:15 PM EDT) 08/05/2023 3:15 PM EDT 08/07/2023 1:00 PM EDT Sophie [facility] - 08/18/2023 1:17 PM EDT ----- ------- Name: Cleo Rock ? Age/Sex: 32/F ? : 1990 Unit#: [id number] ?? Attend Dr: Amaris Salgado CNM ?Re08/05/23 ?Status: DEP REF ? Location: HO.LNP ?Disch: ? ----- ------- SPEC : [id number] ? RECD: 08/07/23-1299 ? STATUS: ??SOUT ? REQ NUM: [id number] ? MEAGAN: 08/05/23-6319 ? SUBM DR: Amaris Salgado ? ENTERED: ??08/07/23-4527 ?SP TYPE: Pap Smr ?OTHR DR: Marisa [...] 66, 68) ?? HPV testing performed by [facility], [place], [place]. ??See reference laboratory ?? portion of the EMR for entire report. ?Clinical Information LMP: 07/17/23 Previous PAP test: 09/17/17, WNL ? Material Received ?? ThinPrep-Cervical Copies To: ?? Marisa Livingston MD ?? [address] [facility] ?? [place] [address] ? Amaris Salgado CNM ?? [address] ?? [place] ?? [phone] ----- ------- Signed (signature on file) IDANIA Hutchinson (ASCP) 08/18/23 1317 ? ----- ------- ? END OF REPORT ? us Generic External Data Provider LAB CYTOLOGY GILBERT UGARTE Final Result [facility] [address] [place] [address] [phone] * HIV Ab/Ag (IRAJ MARIA) (12/09/2022 1:30 PM EDT) HIV AB/AG Nonreactive Nonreactive [facility] Comment:HIV-1 p24 Ag and/or HIV-1/HIV-2 Ab not detected.A test result that is nonreactive does not exclude thepossibility of exposure to or infection with HIV-1 and/orHIV-2. Nonreactive results in this assay for individualswith prior exposure to HIV-1 and/or HIV-2 may be due toantigen and antibody levels that are below the limit ofdetection of this assay.The [employer] Design Assistant HIV Ag/Ab Combo assay result andsupplemental assay results should be interpreted inconjunction with the patient's clinical presentation,history and other laboratory results. If the results areinconsistent with clinical evidence, additional testing issuggested to confirm the result. 12/09/2022 1:30 PM EDT 12/09/2022 4:12 PM EDT us Marisa Livingston MD LAB BLOOD ORDERABLES Fin al Result [facility] [address] [place] [address] [phone] * Lipid Panel, Standard (12/09/2022 1:30 PM EDT) Triglycerides 56 mg/dL [facility] Comment:Desirable Triglyceri de: less than 150 mg/dLBorderline High Triglyceride 150-199 mg/dLHigh Triglyceride: 200-499 mg/dLVery High Triglyceride: greater than or equal to 5OO mg/dL Cholesterol 114 mg/dL [facility] Comment:Desirable Cholestero l: less than 200 mg/dLBorderline High Cholesterol: 200-239 mg/dLHigh Cholesterol: greater than 239 mg/dL LDL Cholesterol Calculated 65 mg/dl [facility] Comment:Desirable LDL: less than 100 mg/dLNear Optimal/Above Optimal LDL: 110- 129 mg/dLBorderline High LDL: 130-159 mg/dLHigh LDL: 160-189 mg/dLVery High LDL: greater than or equal to 190 mg/dL HDL Cholesterol 38 mg/dL [facility] Comment:Desirable HDL: great er than 40 mg/dL Note: This HDL assay may give artificially low results in patients with liver disease. 12/09/2022 1:30 PM EDT 12/09/2022 4:12 PM EDT Marisa Livingston MD LAB BLOOD ORDERABLES Fin al Result [facility] [address] [place] [phone] [phone] from Last 3 Months or Most Recently Relevant to Health Maintenance Insurance [facility] C3 DENTAL-[facility] MEDICAID STAND ADULT Care Teams Supervisor Waterworks Relationship Specialty Start Date End Date Marisa Livingston MD [address] [place] [phone] PCP - General Family Medicine 03/12/19 Perez Vergara RN [address] [place] [address] Brake MechanicNutrition Representative 06/30/24
--- OUTSIDE RECORDS SUMMARY | 2024-09-22 14:03 | XMS_ITS | Encounter Summary ---
Author Organization [facility] Address [address] [place] [address] [address] [address] Care Team Providers Care Nursing Technician Name Role Phone Marisa Livingston MD Primary Care Provider + Perez Vergara RN Unavailable [phone] Encounter Details Date Type Department Care Team (Latest Contact Info) Description 03/26/2019 Abstract [facility] CONVERSIONS Dental, Provider, DDS Social History [...] Care Team ( st Contact Info) Description 09/23/2024 10:45 AM EDT Office Visit [facility] MEDICINE [address] [place] [phone] Marisa Livingston MD [address] [place], [place] [phone] 10/18/2024 3:30 PM EDT Clinical Support [facility] DIABETES/NUTRITION [address] [place] [phone] [place] [address] documented as of this encounter Visit Diagnoses Not on filedocumented in this encounter Care Teams Nursing Technician Relationship Specialty Start Date End Date Marisa Livingston MD [address] [place] [address] PCP - General Family Medicine 03/12/19 Perez Vergara, CHAPITO [address] [place] [address] Icu NurseDistresser 06/30/24 documented as of this encounter
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
--- OUTSIDE RECORDS SUMMARY | 2024-09-22 14:03 | XMS_ITS | Encounter Summary ---
Author Organization [employer] Address [address] [place] [address] [address] Care Team Providers Care Orthodontic Assistant Name Role Phone Marisa Livingston MD Primary Care Provider + Perez Vergara RN Unavailable [phone] Encounter Details Date Type Department Care Team (Late Contact Info) Description 06/27/2022 Abstract [facility] ADULT DENTAL [address] [place], [place] [phone] Jeramie Treadwell DDS [address] [place], [place] [phone] Social History Tobacco Use Types Packs/Day Years [...] Department Care Team (Late Contact Info) Description 09/23/2024 10:45 AM EDT Office Visit [facility] MEDICINE [address] [place], [place] [phone] Marisa Livingston MD [address] [place] [address] 10/18/2024 3:30 PM EDT Clinical Support [facility] DIABETES/NUTRITION [address] [place], [place] [phone] Mandi Pinedo, MEAGAN [address] [place] [address] documented as of this encounter Visit Diagnoses Not on filedocumented in this encounter Care Teams Orthodontic Assistant Relationship Specialty Start Date End Date Marisa Livignston MD [address] [place], [place] [phone] PCP - General Family Medicine 03/12/19 Perez Vergara RN [address] [place] [phone] Athletic Equipment ManagerNewspaper Columnist 06/30/24 documented as of this encounter
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
--- OUTSIDE RECORDS SUMMARY | 2024-09-22 14:03 | XMS_ITS | Encounter Summary ---
Author Organization [employer] Address 75 [facility] 7 [place] [address] Care Team Providers Care Database Admin Name Role Phone Marisa Livingston MD Primary Care Provider + Perez Vergara RN Unavailable [phone] Reason for Visit * Reason Onset Date Comments Appointment Request 07/09/2024 Encounter Details Date Type Department Care Team ([facility] st Contact Info) Description 07/09/[address] [facility] MEDICINE [address] [place] [address] Marisa Livingston MD [address] [place], [place] [phone] Appointment Request Social History Tobacco Use Types [...] to reschedule appt with pcp. Contact pt, bruneian documented in this encounter Plan of Treatment Upcoming Encounters Date Type Department Care Team (Late st Contact Info) Description 09/23/2024 10:45 AM EDT Office Visit [facility] MEDICINE [address] [place], [place] [phone] Marisa Livingston MD [address] [place], [place] [phone] 10/18/2024 3:30 PM EDT Clinical Support [facility] DIABETES/NUTRITION [address] [place], [place] [phone] Mandi Pinedo [address] [place] [address] documented as of this encounter Visit Diagnoses Not on filedocumented in this encounter Additional Health Concerns Assessment Noted Time PHQ-9 Depression Total Score: 17 024 9:31 AM EST documented as of this encounter Care Teams Database Admin Relationship Specialty Start Date End Date Marisa Livingston MD [address] [place] [address] PCP - General Family Medicine 03/12/19 Perez Vergara RN [address] [place] [address] Flight AttendantFlooring Machine Feeder 06/30/24 documented as of this encounter
--- OUTSIDE RECORDS SUMMARY | 2024-09-22 14:03 | XMS_ITS | Encounter Summary ---
Author Organization [employer] Address [address] [place] [address] 7t [place] [address] Care Team Providers Care Health Specialist Name Role Phone Marisa Livingston MD Primary Care Provider + Perez Vergara RN Unavailable [phone] Encounter Details Date Type Department Care Team (Late st Contact Info) Description 07/19/2022 Abstract [facility] ADULT DENTAL [address] [place] [address] Berlin Hagen, DMD [address] [place] [address] Social History Tobacco Use Types Packs/Day Years [...] Description 09/23/2024 10:45 AM EDT Office Visit [facility] MEDICINE [address] [place] [address] Marisa Livingston MD [address] [place] [address] 10/18/2024 3:30 PM EDT Clinical Support [facility] DIABETES/NUTRITION [address] [place] [address] [place] [address] documented as of this encounter Visit Diagnoses Not on filedocumented in this encounter Additional Health Concerns Assessment Noted Time PHQ-9 Depression Total Score: 4 07/03/19 23 10:39 AM EST documented as of this encounter Care Teams Health Specialist Relationship Specialty Start Date End Date Marisa Livingston MD [address] [place] [address] PCP - General Family Medicine 03/12/19 Perez Vergara, CHAPITO [address] [place] [address] ScreedmanStave Block Splitter 06/30/24 documented as of this encounter
--- OUTSIDE RECORDS SUMMARY | 2024-09-22 14:03 | XMS_ITS | Encounter Summary ---
Author Organization [employer] Address [address] [facility] 7 [place] [address] Care Team Providers Care Customer Service And Sales Consultant Name Role Phone Marisa Livingston MD Primary Care Provider + Perez Vergara RN Unavailable [phone] Reason for Visit * Reason Comments Med Refill Encounter Details Date Type Department Care Team ([facility] st Contact Info) Description 05/27/2024 Refill [facility] MEDICINE [address] [place] [address] Marisa Livingston MD [address] [place] [address] Social History Tobacco Use Types Packs/Day Years [...] Description 09/23/2024 10:45 AM EDT Office Visit [facility] MEDICINE [address] [place] [address] Marisa Livingston MD [address] [place] [address] 10/18/2024 3:30 PM EDT Clinical Support [facility] DIABETES/NUTRITION [address] [place] [address] Mandi Pinedo, RD [address] [place] [address] documented as of this encounter Visit Diagnoses Not on filedocumented in this encounter Additional Health Concerns Assessment Noted Time PHQ-9 Depression Total Score: 17 024 9:31 AM EST documented as of this encounter Care Teams Customer Service And Sales Consultant Relationship Specialty Start Date End Date Marisa Livingston MD [address] [place] [address] PCP - General Family Medicine 03/12/19 Perez Vergara RN [address] [place] [address] Canvas Cutter HandLibrary Page 06/30/24 documented as of this encounter
--- OUTSIDE RECORDS SUMMARY | 2024-09-22 14:03 | XMS_ITS | Encounter Summary ---
Author Organization [employer] Address 75 [facility] 7 [place] [address] Care Team Providers Care Electrocardiograph Operator Name Role Phone Marisa Livingston MD Primary Care Provider + Perez Vergara RN Unavailable [phone] Reason for Visit * Reason Comments Med Refill Encounter Details Date Type Department Care Team ([facility] st Contact Info) Description 03/04/2024 Refill [facility] MEDICINE [address] [place] [address] Marisa Livingston MD [address] [place] [address] Social History Tobacco Use Types Packs/Day Years [...] Description 09/23/2024 10:45 AM EDT Office Visit [facility] MEDICINE [address] [place] [address] Marisa Livingston MD [address] [place] [address] 10/18/2024 3:30 PM EDT Clinical Support [facility] DIABETES/NUTRITION [address] [place] [address] Mandi Pinedo, RD [address] [place] [address] documented as of this encounter Visit Diagnoses Not on filedocumented in this encounter Additional Health Concerns Assessment Noted Time PHQ-9 Depression Total Score: 17 024 9:31 AM EST documented as of this encounter Care Teams Electrocardiograph Operator Relationship Specialty Start Date End Date Marisa Livingston MD [address] [place] [address] PCP - General Family Medicine 03/12/19 Perez Vergara RN [address] [place] [address] Crown PresserNitric Acid Concentrator Operator 06/30/24 documented as of this encounter
--- OUTSIDE RECORDS SUMMARY | 2024-09-22 14:03 | XMS_ITS | Encounter Summary ---
Author Organization [employer] Address [address] [facility] [address] [place] [address] Care Team Providers Care Mine Technician Name Role Phone Marisa Livingston MD Primary Care Provider + Perez Vergara RN Unavailable [phone] Encounter Details Date Type Department Care Team (Latest Contact Info) Description 09/20/2024 Travel Social History Tobacco Use Types Packs/Day [...] Description 09/23/2024 10:45 AM EDT Office Visit [facility] MEDICINE [address] [place] [address] Marisa Livingston MD [address] [place] [address] 10/18/2024 3:30 PM EDT Clinical Support [facility] DIABETES/NUTRITION [address] [place] [address] [place] [address] documented as of this encounter Visit Diagnoses Not on filedocumented in this encounter Additional Health Concerns Assessment Noted Time PHQ-9 Depression Total Score: 17 025 9:47 AM EST documented as of this encounter Care Teams Mine Technician Relationship Specialty Start Date End Date Marisa Livingston MD [address] [place] [address] PCP - General Family Medicine 03/12/19 Perez Vergara RN [address] [place] [address] Insurance BrokerAsian Studies Professor 06/30/24 documented as of this encounter
--- OUTSIDE RECORDS SUMMARY | 2024-09-22 14:03 | XMS_ITS | Encounter Summary ---
Author Organization [employer] Address 75 [facility] 7t [place] [address] Care Team Providers Care Career Coordinator Name Role Phone Marisa Livingston MD Primary Care Provider + Perez Vergara RN Unavailable [phone] Reason for Visit * Reason Onset Date Comments Appointment 07/12/2022 Encounter Details Date Type Department Care Team (Late st Contact Info) Description 07/12/2022 Telephone [facility] ADULT DENTAL [address] [place] [address] Yeison Arnold, DMD [address] [place] [address] Appointment Social History Tobacco Use Types Packs/Day [...] Would like to schedule. Called [facility] to transfercal but no answer. Following up with message. documented in this encounter Plan of Treatment Upcoming Encounters Date Type Department Care Team (Late st Contact Info) Description 09/23/2024 10:45 AM EDT Office Visit [facility] MEDICINE [address] [place] [address] Marisa Livingston MD [address] [place] [address] 10/18/2024 3:30 PM EDT Clinical Support [facility] DIABETES/NUTRITION [address] [place] [address] Mandi Pinedo, RD [address] [place] [address] documented as of this encounter Visit Diagnoses Not on filedocumented in this encounter Additional Health Concerns Assessment Noted Time PHQ-9 Depression Total Score: 4 07/03/19 23 10:39 AM EST documented as of this encounter Care Teams Career Coordinator Relationship Specialty Start Date End Date Marisa Livingston MD [address] [place] [address] PCP - General Family Medicine 03/12/19 Perez Vergara, CHAPITO [address] [place] [address] Gear Room KeeperBig Data Software Engineer 06/30/24 documented as of this encounter
--- OUTSIDE RECORDS SUMMARY | 2024-09-22 14:03 | XMS_ITS | Encounter Summary ---
Author Organization [employer] Address [address] [place] [address] [address] [place] [address] Care Team Providers Care Automotive Glass Mechanic Name Role Phone Marisa Livingston MD Primary Care Provider + Perez Vergara RN Unavailable [phone] Encounter Details Date Type Department Care Team (Latest Contact Info) Description 02/27/2022 Abstract [facility] CONVERSIONS Dental, Provider, DDS Social [...] Description 09/23/2024 10:45 AM EDT Office Visit [facility] MEDICINE [address] [place] [address] Marisa Livingston MD [address] [place], [place] [phone] 10/18/2024 3:30 PM EDT Clinical Support [facility] DIABETES/NUTRITION [address] [place] [address] [place] [address] documented as of this encounter Visit Diagnoses Not on filedocumented in this encounter Care Teams Automotive Glass Mechanic Relationship Specialty Start Date End Date Marisa Livingston MD [address] [place] [address] PCP - General Family Medicine 03/12/19 Perez Vergara RN [address] [place] [address] Male ModelFitter Machinist 06/30/24 documented as of this encounter
== END 2024-09-22 12:55 | disposition home or self-care (01) ==
LOC: HO.HOSX 12:54
DX: M79.642 Pain in left hand (principal); S53.432A Radial collateral ligament sprain of left elbow, initial encounter; S53.442A Ulnar collateral ligament sprain of left elbow, initial encounter; W01.0XXA Fall on same level from slipping, tripping and stumbling without subsequent striking against object, initial encounter; Y93.02 Activity, running; Y92.89 Other specified places as the place of occurrence of the external cause; Y99.8 Other external cause status
CPT/HCPCS: 73130; 99212

== ENCOUNTER 2024-09-22 12:57 | Outpatient (AMB) | payer MEDICAID, SELFPAY ==
--- NOTE | 2024-09-22 13:16 | MHC.OFFVIS ---
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 She expresses as she turned to attempt to get away from a dog running towards her she fell onto her left side. Reports pain in left hand and left wrist with movement of wrist. 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 Pain in left middle finger with flexion and extension and weakness when attempting to make a full closed fist. Ibuprofen and prednisone was prescribed to her and she states this offers mild relief. She has had moments when objects have fallen out of her left hand like dishes. At night her pain is worse and wakes her up some times. Complaint of left wrist falling asleep and random swelling with no known repeat injury. 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 She expresses as she turned to attempt to get away from a dog running towards her she fell onto her left side. Reports pain in left hand and left wrist with movement of wrist. 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 Pain in left middle finger with flexion and extension and weakness when attempting to make a full closed fist. Ibuprofen and prednisone was prescribed to her and she states this offers mild relief. She has had moments when objects have fallen out of her left hand like dishes. At night her pain is worse and wakes her up some times. Complaint of left wrist falling asleep and random swelling with no known repeat injury. [facility] Medical History Asthma Family History Daughter Cancer of brain Maternal Grandfather Colon cancer Paternal Grandfather Throat cancer Mother Heart problem Social History Household Members: Children Housing: House Alcohol intake: never Patient Tobacco Use Status: Former Tobacco user Current occupational status: employed Gender identity: Female Female Reproductive History Menstrual Age of Menarche: 5 Review of Systems Const All systems reviewed & are unremarkable except as noted in HPI and below Physical Exam Vital Signs: BMI result Body Mass Index 33.3 Extrem Other: Patient is alert, oriented, and in no acute distress. Neuro: Normal sensation of the tips of all digits of the left hand at this time Vascular: Cap refill brisk Pain: Pain with both radial and ulnar deviation at the MCP joint of the left middle finger Good endpoints No pain with making a closed fist Minimal tenderness to palpation about the left middle finger ROM: Patient was able to make a closed fist and extend all digits of the left hand fully Skin: No lacerations or abrasions. General: No ecchymosis, erythema, or evidence of infection. Psych: Appears grossly normal Affect normal Attitude cooperative Results Reviewed Results Reviewed: X-rays obtained in the office today and independently reviewed by me, Jesus Olivas PA-C, demonstrate no fracture or acute bony abnormality of the left middle finger. Assessment & Plan Assessment & Plan (1) Radial collateral ligament sprain: Code(s): S53.439A - Radial collateral ligament sprain of unspecified elbow, initial encounter Category: Medical (2) Ulnar collateral ligament sprain: Code(s): S53.449A - Ulnar collateral ligament sprain of unspecified elbow, initial encounter Category: Medical Plan 1. RCL sprain of MCP joint of left middle finger 2. UCL sprain of MCP joint of the left middle finger Patient is educated about this condition Patient is educated about the typical recovery course At this time, patient was is provided with bernarda tape to wear with daytime activities in order to prevent sharp radial or ulnar deviation of the left middle finger Patient is also educated she should avoid any heavy lifting with the left hand Patient was amenable to this plan Follow-up in 4 weeks for reassessment, sooner with any acute concerns Orders: Orders XR hand LT min 3V Today M79.642 - Pain in left hand Coding Level of Care Code New Pt Level 3 (78507) Diagnoses Radial collateral ligament sprain S53.439A Ulnar collateral ligament sprain S53.449A
[2024-09-22 13:26] VITALS: BMI 33.3
== END 2024-09-22 13:53 | disposition home or self-care (01) ==
LOC: HO.HOS 12:58
PROVIDERS: PCP Internal Medicine
DX: S63.653A Sprain of metacarpophalangeal joint of left middle finger, initial encounter (principal)
CPT/HCPCS: 99203

== ENCOUNTER → 2024-09-22 12:59 | Outpatient (BNV) | payer MEDICAID, SELFPAY | PROVIDERS: Visit Provider Radiology Diagnostic Radiology | DX: M79.642 Pain in left hand (principal) | CPT/HCPCS: 73130 ==

== ENCOUNTER 2024-09-27 12:20 | Outpatient (AMB) | payer MEDICAID, SELFPAY ==
--- OUTSIDE RECORDS SUMMARY | 2024-09-27 12:48 | XMS_ITS | Encounter Summary ---
Author Organization [employer] Address 75 [facility] 7t [place] [address] Care Team Providers Care Tactical Air Control Party Manager Name Role Phone Marisa Livingston MD Primary Care Provider + Perez Vergara RN Unavailable [phone] Reason for Visit * Reason Comments Med Refill Encounter Details Date Type Department Care Team ([facility] st Contact Info) Description 03/04/2024 Refill [facility] MEDICINE [address] [place] [address] Marisa Livingston MD [address] [place] [address] Social History Tobacco Use Types Packs/Day Years [...] Care Team (Late st Contact Info) Description 10/18/2024 3:30 PM EDT Clinical Support [facility] DIABETES/NUTRITION [address] [place] [address] [place] [address] 12/20/2024 9:00 AM EDT Office Visit [facility] MEDICINE [address] [place] [address] Marisa Livingston MD [address] [place] [address] documented as of this encounter Visit Diagnoses Not on filedocumented in this encounter Additional Health Concerns Assessment Noted Time PHQ-9 Depression Total Score: 17 024 9:31 AM EST documented as of this encounter Care Teams Tactical Air Control Party Manager Relationship Specialty Start Date End Date Marisa Livingston MD [address] [place] [address] PCP - General Family Medicine 03/12/19 Perez Vergara RN [address] [place] [address] Forensic AnthropologistAccounting Manager 06/30/24 documented as of this encounter
--- OUTSIDE RECORDS SUMMARY | 2024-09-27 12:48 | XMS_ITS | Clinical Summary ---
Author Organization [employer] Address [address] [facility] [address] [place] [address] Care Team Providers Care Magnetic Resonance Imaging Coordinator Name Role Phone Marisa Livingston MD Primary Care Provider + Perez Vergara RN Unavailable [phone] Allergies Active Allergy Reactions Criticality Noted Date [...] hours. Active Nebulizers (Vios Aerosol Delivery System) [facility]. 3 Active Fasenra Pen 30 [...] 4 Active ergocalciferol (Vitamin D2) 1.25 MG (03114 UT) capsule TAKE 1 CAPSULE(1.25 MG) BY MOUTH 1 TIME EVERY WEEK 12 capsule 1 5 Active benzonatate (Tessalon) 100 MG capsule Take 1 capsule by mouth every 8 (eight) hours if needed for cough. 5 Active Advair HFA 230-21 MCG/ACT inhalerIndicatio ns:Moderate [...] to 20 doses. 20 tablet 5 Active Tirzepatide-Weig ht Management (Zepbound) 2.5 MG/0.5ML solution auto-injector Inject 0.5 mL (2.5 mg) under the skin 1 (one) time per week. 2 mL 2 5 Active furosemide (Lasix) 20 MG tablet Take 20 mg by mouth Once per day. 025 Discontin ued(Thera py completed ) Active Problems Problem Noted Date Diagnosed Date Cardiac enlargement 06/21/2024 Overview (06/21/2024): Addendum 06/21/24 9:33 AM - CT/CT angio chest PE protocol done in ER 06/18/24 to r/o PE revealsed No evidence of pulmonary embolus or acute aortic syndrome. Fzft-zj-bevkjwsj cardiac enlargement with predominantly biventricular dilatation. Enlarged main pulmonary artery suggesting pulmonary arterial hypertension. -will refer to cardiology Assessment & Plan (09/23/2024 3:55 PM EDT): Status post influenza infection 3 months ago, she has appointment with cardiology next week Continue off Lasix and follow-up with cardiology Advised regarding weight reduction and optimal control of asthma Assessment & Plan (07/14/2024 10:53 AM EST): [...] of pulmonary embolus or acute aortic syndrome. Kuju-yd-eqqgbief cardiac enlargement with predominantly biventricular dilatation. Enlarged main pulmonary artery suggesting pulmonary arterial hypertension. -will refer to cardiology Moderate persistent asthma without complication 06/17/2024 Assessment & Plan (09/23/2024 3:54 PM EDT): Significantly improved with with Advair and DuoNeb as needed, follow-up with type copy examiner CARO for Sam still pending Will consider allergy testing after next pulmonology visit Advised regarding flu and COVID vaccinations in the fall Assessment & Plan (07/14/2024 10:59 AM EST): Uncontrolled, worsening s/p Influenza. Chronic exposure to environmental allergens and extreme temperatures. Continue close FU with Boring Machine Operator Horizontal. Continue Advair plus Duo Neb, awaiting pa for Sam. Will consider allergy testing. Menorrhagia with regular cycle 04/16/2023 Assessment & Plan (07/14/2024 10:51 AM EST): Persistent, most probable cause of anemia. I will refer to Room Service Associate at [facility] for treatment that may include IUD [...] exercise, life style modifications, diet, referral to critical care clinical nurse specialist. Discussed re lower calorie intake, increase dietary fiber Assessment & Plan (11/22/2022 1:34 PM EDT): Discussed re weight reduction options including exercise, life style modifications, diet, referral to critical care clinical nurse specialist. Discussed re lower calorie intake, increase [...] -Uncontrolled. -Restart Advair Diskus -Follow up with implement mechanic for immunotherapy. -Counseled on protocol for FMLA [...] gave today NBZ machine written prescription to [facility] nurse staff -Alarm signs and sx [...] anti-muscarinic inhaler as Trelegy -Referred today to type copy examiner for uncontrolled asthma Assessment & Plan (07/03/2022 12:50 PM EST): Uncontrolled. Start Flovent BID. She agreed to influenza and PCV 20 today, declined Covid IZ. DUB (dysfunctional uterine bleeding) 07/03/2022 Assessment & Plan (09/23/2024 3:56 PM EDT): Improving but still significant, menstrual periods are more regular now. Follow- up with E COMMERCE DEVELOPER Advised to continue p.o. iron as tolerated and follow-up with hematology as well She will follow-up with E COMMERCE DEVELOPER regarding desire for after all medical conditions are more stable Assessment & Plan (07/03/2022 12:51 PM EST): Counseled to keep menstrual diary. Order CBC and iron studies. Obesity due to excess calories without serious c omorbidity 07/03/2022 Assessment & Plan (09/23/2024 3:57 PM EDT): Discussed re weight reduction options including exercise, life style modifications, diet. Recommended to decrease soda and sugary beverage consumption, increase protein intake with meals (at least 1 portion of protein with each meal) to assist with satiety, increase dietary fiber Recommended at least 150 min/week of moderate intensity exercise. Discussed about pharmacological therapy and the need for compliance with medication appointments, contraception as most of these medications are contraindicated during and close follow-up with me I will prescribe Zepbound as phentermine is contraindicated due to recent episode of CHF and anxiety (Dx bipolar disorder). Follow-up with me in 6 weeks Assessment & Plan (07/14/2024 11:14 AM EST): [...] exercise, life style modifications, diet, referral to critical care clinical nurse specialist. Discussed re lower calorie intake, increase dietary fiber. Encounter for preventive health examination 06/19 Assessment & Plan (09/23/2024 4:00 PM EDT): Patient is encouraged to exercise moderately 4-5x/week. Counseled to increase consumption of fresh fruit, veggies and water. To have frequent and small meals. I have discussed re having protected sex at all times for STI purposes. Pat does not smoke, uses alcohol or any illicit drugs, seems to feel safe at home PAP smear: UTD, next 1 due 2028 Adult Izs: COVID is overdue counseld to have covid vaccine teresa Ophthalmology: Overdue, will refer to ophthalmology clinic labs: up to date next one due 11/2023 Dental visit: up to date, next one due January 2025 Patient desires but she is not sexually active at this time, she is aware of contraception methods and get back to me as needed Assessment & Plan (07/08/2023 10:15 AM EST): [...] at home PAP smear: Overdue, refer to finisher plate will need further eval for DUB Adult [...] Encounters Date Type Department Care Team Description 09/25/2024 Refill [facility] MEDICINE [address] [place] [phone] Marisa Livingston MD 09/24/2024 Patient Outreach [facility] MEDICINE [address] [place] [phone] Marisa Livingston MD Care Coordination (Appt reminder) 09/23/2024 10:45 AM EDT Office Visit [facility]ICINE [address] [place] [phone] Marisa Livingston MD Class 1 obesity due to excess calories without serious comorbidity with body mass index (BMI) of 33.0 to 33.9 in adult (Primary Dx); Encounter for preventive health examination; Moderate persistent asthma without complication; DUB (dysfunctional uterine bleeding); Cardiac enlargement; Dietary counseling; Exercise counseling; Encounter for complete eye exam 09/23/2024 Travel 09/23/2024 Patient Outreach [address] [address] Marisa Livingston MD Care Coordination 09/22/[address] [address] Marisa Livingston MD Chart Prep 09/21/[address] [address] Marisa Livingston MD Care Management (C3CM- f/u call) 09/20/2024 1:30 PM EDT Clinical Support [facility] DIABETES/NUTRITION [address] [place] [phone] Obesity due to excess calories without serious comorbidity, unspecified class (Primary Dx) 09/20/2024 Travel 09/16/2024 Patient Outreach [address] [address] Marisa Livingston MD Pre-visit Planning (SDOH screening completed on 06/29/24) 09/10/[address] [address] Marisa Livingston MD Care Management (C3- f/u call #3 lvm) 09/07/2024 Patient Outreach [facility] [address], [place] [phone] Marisa Livingston MD Transition Of Care (Tcm) 09/05/2024 Orders Only [facility] External Provider, [facility] 08/31/2024 10:30 AM EDT Clinical Support [facility] DIABETES/NUTRITION [address] [place] [phone] Obesity due to excess calories without serious comorbidity, unspecified class (Primary Dx) 08/31/2024 Travel 08/30/2024 Telephone [facility] MEDICINE [address] [place] [phone] Marisa Livingston MD Care Management (C3- f/u call #2 lvm) 08/18/2024 8:00 AM EDT Office Visit [facility] [address] [place] [address] Zoe Monroy DMD 08/18/2024 Travel 08/17/2024 Telephone [facility] MEDICINE [address] [place] [phone] Marisa Livingston MD Care Management (C3CM- f/u call lvm) 08/06/2024 3:00 PM EDT Clinical Support [facility] DIABETES/NUTRITION [address] [place] [phone] Obesity due to excess calories without serious comorbidity, unspecified class 08/06/2024 11:00 AM EDT Office Visit [facility] [address] [place] [address] Glo Lainez DDS 08/06/2024 Travel 08/04/2024 Telephone [facility] MEDICINE [address] [place] [phone] Marisa Livingston MD Care Management (C3CM- f/u call) 07/30/2024 Orders Only [facility] External Provider, [facility] 07/30/2024 Population Health Risk Score [facility] (C3) Department [address] [place] [phone] Provider, Population Health Generic 07/29/2024 Telephone [facility] MEDICINE [address] [place] [address] [phone] Marisa Livingston MD Nurse Triage 07/27/2024 Refill [facility] MEDICINE [address] [place] [address] [phone] Marisa Livingston MD Moderate persistent asthma without complication 07/23/2024 Telephone [facility] MEDICINE [address] [place] [address] [phone] Marisa Livingston MD Care Management (C3- f/u call) 07/22/2024 Telephone [facility] MEDICINE [address] [place] [phone] Marisa Livingston MD Results 07/14/2024 10:00 AM EST Telemedicine [facility]ICINE [address] [place] [phone] Marisa Livingston MD Moderate persistent asthma without complication (Primary Dx); Cardiac enlargement; Menorrhagia with regular cycle; Obesity due to excess calories without serious comorbidity, unspecified class 07/14/2024 Patient Outreach [facility]INE [address] [place] [phone] Marisa Livingston MD Care Coordination ([facility] Stacey Hugoz telephone call outreach) 07/14/2024 Telephone [facility] MEDICINE [address] [place] [phone] Marisa Livingston MD Appointment Request 07/14/2024 Telephone [facility] MEDICINE [address] [place] [phone] Marisa Livingston MD Appointment Confirmation 07/14/2024 Telephone [facility] MEDICINE [address] [place] [phone] Marisa Livingston MD Care Management ([facility]- f/u call) 07/14/2024 Travel 07/09/2024 Telephone [facility] MEDICINE [address] [place] [phone] Marisa Livingston MD Chart prep 07/09/2024 Telephone [facility] MEDICINE [address] [place] [phone] Marisa Livingston MD Appointment Request 07/09/2024 Telephone [facility] MEDICINE [address] [place] [phone] Marisa Livingston MD Appointment Request 07/07/2024 Telephone [facility] MEDICINE [address] [place] [phone] Marisa Livingston MD Chart prep 07/02/2024 Telephone [facility] MEDICINE [address] [place] [phone] Marisa Livingston MD no show 07/01/2024 Telephone [facility] MEDICINE [address] [place] [address] Marisa Livingston MD Chart prep 06/30/2024 Telephone [facility] MEDICINE [address] [place] [address] Marisa Livingston MD Care Management (C3CM- initial assessment/enrollme nt) from Last 3 Months Immunizations Name Administration [...] Passive Smoke Exposure: Never Smokeless Tobacco: Never Tobacco Cessation:Counseling Given: Not Answered Alcohol Use Standard Drinks/Week Comments Never 0 [...] the past 12 months, has t he [employer] system, gas, oil or water company threatened to shut off services in your home? No 06/29/2024 Depression Answer Date Recorded Patient Health Questionnaire-2 Score 6 07/14/2024 Internet Access Answer Date Recorded Internet Access Q1 Yes 06/29/2024 Internet Access Q2 Not on file 06/29/2024 Comments No Sex and Gender Information Value Date Recorded Sex Assigned at Female 03/18/2022 10:36 AM EDT Legal Sex Female 10:36 AM EDT Gender Identity Female 03/18/2022 10:36 AM EDT Sexual Orientation Straight 03/18/2022 10 :36 AM EDT Last Filed Vital Signs Vital Sign Reading Time Taken Comments Blood Pressure 114/78 09/23/2024 10:42 AM EDT Pulse 82 09/23/2024 10:42 AM EDT Temperature 36.3 ??C (97.3 ??F) 09/23/2024 10:42 AM E DT Respiratory Rate 22 06/17/2024 2:18 PM EST Oxygen Saturation 100% 09/23/2024 10:42 AM EDT Inhaled Oxygen Concentration - - Weight 88.2 kg (194 lb 6 oz) 09/23/2024 10:42 AM EDT Height 162.6 cm (5' 4 ) 09/23/2024 10:42 AM EDT Body Mass Index 33.36 09/23/2024 10:42 AM EDT Plan of Treatment Upcoming Encounters Date Type Department Care Team (Late st Contact Info) Description 10/18/2024 3:30 PM EDT Clinical Support [facility] DIABETES/NUTRITION [address] [place] [address] [place] [address] 12/20/2024 9:00 AM EDT Office Visit [facility] MEDICINE [address] [place], [place] [phone] Marisa Livingston MD [address] [place] [address] Health Maintenance Due Date Last Done Comments Alcohol/Substance Use Screening 2000 Hepatitis C Screening 2006 Hepatitis B Vaccines (1 of 3 - 19+ 3-dose series) 12/06/2007 COVID-19 Vaccine (2023- season) 2024 Influenza Vaccine (#1) 2024 , 07/03/2022, 02/18/2019, Additional history exists Dental Prophylaxis 09/24/2024 03/26/2024 Dental Oral Exam 02/07/2025 08/06/2024, 02/27/2022 Dental X-Ray: Bitewings 03/27/2025 03/26/2024, 02/27 SDOH Screening 06/29/2025 06/29/2024 Depression Screening 07/14/2025 07/14/2024, 07/14/19 Family Planning (PISQ) 09/23/2025 09/23/2024 Tobacco Screening 09/23/2025 09/23/2024 Dental X-Ray: Full Mouth 08/08/2027 08/06/2024, 02/16 [...] EDT Narrative 09/05/2024 1:46 PM EDT ? [facility] ?[address] ?[place] [address] ?XRay Report ? Signed ? Patient: Luis Cleo Sun Anette ?MR#: ?? [id number] ? : 1990 ?Acct:[id number] ? Age/Sex: 33 / F ?ADM Date: 09/05/24 ? Loc: HO.ED ? Attending Dr: ? Ordering Physician: Iqra Luke CNP ?? Date of Service: 09/05/24 ?? Procedure(s): XR wrist LT w scaphoid ?? Accession Number(s): [id number] ? cc: Iqra Luke CNP; Marisa Livingston [...] DD/ 1344 ? TD/TT: 09/05/24 1344 ? Pipe Fitter Marine: ? 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 Donjudithinterpreter, Image - 09/05/[address] [address] XRay Report Signed Patient: Cleo Rock JMR#: [id number] : 1990Acct:[id number] Age/Sex: 33 / FADM Date: 09/05/24 Loc: HO.ED Attending Dr: Ordering Physician: Iqra Luke CNP Date of Service: 09/05/24 Procedure(s): XR wrist LT w scaphoid Accession Number(s): [id number] cc: Iqra Luke CNP; Marisa Livingston MD [...] 09/05/24 1345 DD/ 1344 TD/TT: 09/05/24 1344 Pipe Fitter Marine: [facility] External Provider IMG XR PROCEDURES Final Result * XR Hand 1-2 Views Left (09/05/2024 1:44 PM EDT) Anatomical Region Laterality Modality Upper Extremities, Hand Left Radiogra phic Imaging 09/05/2024 1:44 PM EDT Narrative 09/05/2024 1:46 PM EDT ? [facility] ?[address] ?[place] [address] ?XRay Report ? Signed ? Patient: Cleo Rock J ?MR#: ?? [id number] ? : 1990 ?Acct:[id number] ? Age/Sex: 33 / F ?ADM Date: 09/05/24 ? Loc: HO.ED ? Attending Dr: ? Ordering Physician: Iqra Luke CNP ?? Date of Service: 09/05/24 ?? Procedure(s): XR hand LT 2V ?? Accession Number(s): [id number] ? cc: Iqra Luke CNP; Marisa Livingston [...] by Nicholas Bean MD in OV> ? 09/05/245 ? DD/ 1344 ? TD/TT: 09/05/24 1344 ? Pipe Fitter [employer]: ? 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 Armando, Stephania - 09/05/[address] [address] XRay Report Signed Patient: Cleo Rock JMR#: [id number] : 1990Acct:[id number] Age/Sex: 33 / FADM Date: 09/05/24 Loc: HO.ED Attending Dr: Ordering Physician: Iqra Luke CNP Date of Service: 09/05/24 Procedure(s): XR hand LT 2V Accession Number(s): [id number] cc: Iqra Luke CNP; Marisa Livingston MD [...] 09/05/24 1345 DD/ 1344 TD/TT: 09/05/24 1344 Pipe Fitter [employer]: [facility] External Provider IMG XR PROCEDURES Final Result * CT Cervical Spine w/o Contrast (07/30/2024 5:47 PM EDT) Anatomical Region Laterality Modality Spine, C-spine Computed Tomogra phy 07/30/2024 5:47 PM EDT Narrative 07/30/2024 5:49 PM EDT ? [facility] ?[address] ?[place] [address] ? CT Scan Report ? Signed ? Patient: Cleo Rock J ?MR#: ?? [id number] ? : 1990 ?Acct:[id number] ? Age/Sex: 33 / F ?ADM Date: 07/30/24 ? Loc: HO.ED ? Attending Dr: ? Ordering Physician: Amadou Mcmillan ?? Date of Service: 07/30/24 ?? Procedure(s): CT cervical spine wo IV con ?? Accession Number(s): [id number] ? cc: Amadou Mcmillan; Marisa Livingston MD ? Report Number: ?? [id number]: Total DLP = ??560.00 mGy-cm ? CLINICAL [...] in OV> ? 07/30/24 1748 ? DD/ 1747 ? TD/TT: 07/30/24 1747 ? Pipe [employer]itter [employer]: ? 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 Stephania Roberts - 07/30/[address] [address] [address] Scan Report Signed Patient: Smith DinoCleorosa MACHUCA#: [id number] : 1990Acct:[id number] Age/Sex: 33 / FADM Date: 07/30/24 Loc: HO.ED Attending Dr: Ordering Physician: Amadou Mcmillan Date of Service: 07/30/24 Procedure(s): CT cervical spine wo IV con Accession Number(s): [id number] cc: Amadou Mcmillan; Marisa Livingston MD Report Number: [id number]: Total DLP = 560.00 mGy-cm CLINICAL HISTORY: [...] signed by Janice Vora MD in OV> 07/30/241747 DD/ 46 TD/TT: 07/30/241746 Pipe Fitter Marine: [facility] External Provider IMG CT PROCEDURES Final Result * High Sensitivity Troponin I (07/30/2024 4:20 PM EDT) Pathologist [facility] TROPONIN I HIGH SENSITIVITY <2.7 <3.5 - 17.0 ng/L [facility] Comment:The Ruelas high sens itivity Troponin-I results should beused in conjunction with other diagnostic information suchas ECG, clinical observations and information, and patientsymptoms to aid in the diagnosis of RI. 07/30/2024 4:20 PM EDT 07/30/2024 4:28 PM EDT Generic External Data Provider LAB BLOOD ORDERAB LES Final Result [facility] [address] [place] [phone] * (ABNORMAL) CBC auto differential (07/30/2024 4:20 PM EDT) White Blood Count 5.7 4.8 - 10.8 X10*3/uL [facility] Red Blood Count 4.59 4.20 - 5.50 X10*6/uL [facility] Hemoglobin 9.0(L) 12.0 - 16.0 g/dl [facility] Hematocrit 30.3(L) 37.0 - 47.0 % [facility] Mean Corpuscular Volume 66.0(L) 80.0 - 98.0 fL [facility] Mean Corpuscular Hemoglobin 19.6(L) 27.0 - 33.0 pg [facility] Mean Corpuscular HGB Conc 29.7(L) 31.0 - 35.0 g/dl [facility] Red Cell Distribution Width 18.0(H) 11.0 - 16.0 % [facility] Platelet Count 343 160 - 400 X10*3/uL [facility] Mean Platelet Volume 9.3(L) 9.4 - 12.3 fL [facility] Neutrophils Percent Auto 61.8 45 - 73 % [facility] Imm Gran Pct Auto 0.7(H) 0.0 - 0.4 % [facility] Lymphocytes Percent Auto 23.4 20 - 40 % [facility] Monocytes Percent Auto 7.7 2 - 11 % [facility] Eosinophils Percent Auto 5.9(H) 0 - 4 % [facility] Basophils Percent Auto 0.5 0 - 2 % [facility] NRBC Pct Auto 0.0 0.0 - 0.2 /100WBC [facility] Neutrophils Absolute Auto 3.5 2.0 - 8.3 x10*3/uL [facility] Imm Gran Abs Auto 0.04(H) 0.00 - 0.03 X10*3/uL [facility] Lymphocytes Absolute Auto 1.3 1.2 - 4.9 X10*3/uL [facility] Monocytes Absolute Auto 0.4 0.1 - 1.2 X10*3/uL [facility] Eosinophils Absolute Auto 0.3 0.0 - 0.4 X10*3/uL [facility] Basophils Absolute Auto 0.0 0.0 - 0.2 X10*3/uL [facility] NRBC Abs Auto 0.000 0.0 - 0.012 X10*3/uL [facility] 07/30/2024 4:20 PM EDT 07/30/2024 4:28 PM EDT Generic External Data Provider LAB BLOOD ORDERAB LES Final Result Performing Organization Address [facility]/ZIP Co de Phone Number [facility] [address] [place] [phone] * Partial Thromboplastin Time, Activated (APTT) (07/30/2024 4:20 PM EDT) Partial Thromboplastin Time 28.9 26.0 - 36.8 SEC [facility] Comment:For information rega rding the monitoring of direct thrombininhibitors, please refer to Pharmacy. 07/30/2024 4:20 PM EDT 07/30/2024 4:28 PM EDT Generic External Data Provider LAB BLOOD ORDERAB LES Final Result Performing Organization Address [facility]/ZIP Co de Phone Number [facility] [address] [place] [phone] * Prothrombin Time-INR (07/30/2024 4:20 PM EDT) Prothrombin Time 12.1 10.9 - 12.4 SEC [facility] INTERNATIONAL NORM RATIO 1.0 0.9 - 1.1 [facility] Comment:INTERNATIONAL NORMAL IZED RATIO (INR) [...] Provider LAB BLOOD ORDERAB LES Final Result [facility] [address] [place] [phone] * (ABNORMAL) Comprehensive Metabolic Panel (07/30/2024 4:20 PM EDT) Sodium 142 135 - 145 mmol/L [facility] Potassium 4.0 3.3 - 5.1 mmol/L [facility] Chloride 109(H) 96 - 108 mmol/L [facility] Carbon Dioxide 27 22 - 29 mmol/L [facility] Anion Gap 10(L) 12 - 20 [facility] Urea Nitrogen (BUN) 7(L) 9 - 16 mg/dL [facility] Creatinine, Serum 0.58 0.5 - 1.4 mg/dL [facility] Creatinine Clr Calc Pharmacy 145.0 [facility] Comment:Provided height and weight: 162.56 cm,87.6 kg.eGFR (calculated from the MDRD study equation) and eCrCl(calculated from the Cockcroft-Gault equation) are based ondifferent parameters and may not yield comparable results.If eCrCl result is absurd, please check patient'sheight/weight. Estimated Glomerular Filt Rate >60 [facility] Comment:Chronic Kidney Disea se: Estimated GFR < 60 mL/min/1.38t4Gfeeoz Kidney Disease: Estimated GFR < 15 mL/min/1.73m2 Glucose 92 60 - 115 mg/dL [facility] Calcium 9.8 8.4 - 10.2 mg/dL [facility] LABS Bilirubin, Total 0.5 0.0 - 1.0 mg/dL [facility] Aspartate Amino Transferase 20 5 - 31 U/L [facility] Alanine Aminotransferase 23 0 - 31 U/L [facility] Total Protein 8.4(H) 6.5 - 8.0 g/dL [facility] Albumin Level 4.5 3.5 - 5.0 g/dL [facility] Alkaline Phosphatase 77 39 - 117 U/L [facility] 07/30/2024 4:20 PM EDT 07/30/2024 4:28 PM EDT us Generic External Data Provider LAB BLOOD ORDERAB LES Final Result [facility] [address] [facility] [place] [address] [phone] * CT Head w/o Contrast (07/30/2024 11:39 AM EDT) Anatomical Region Laterality Modality Head, Neck Computed Tomogra phy 07/30/2024 11:3 9 AM EDT Narrative 07/30/2024 12:13 PM EDT ? [facility] ?[address] ?[place] [address] ? [address] Scan Report ? Signed ? Patient: Cleo Rock ?MR#: ?? [id number] ? : 1990 ?Acct:[id number] ? Age/Sex: 33 / F ?ADM Date: 07/30/24 ? Loc: HO.ED ? Attending Dr: ? Ordering Physician: Caitie Wilkerson NP ?? Date of Service: 07/30/24 ?? Procedure(s): CT head/brain wo IV con ?? Accession Number(s): [id number] ? cc: Marisa Livingston MD; Caitie Wilkerson NP ? Report Number: ?? [id number]: Total DLP = ??706.00 mGy-cm ?? EXAMINATION: [...] ??Melchor Faria MD ??07/30/2024 12:00 PM EDT ? Dictated By: ?Melchor Faria MD ? Signed By: ?<Electronically signed by Melchor Faria MD in OV> ?07/30/24 1200 ? DD/ 1139 ? TD/TT: 07/30/24 1153 ? [employer]: ? 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 Stephania Roberts - 07/30/[address] [place] [address] [address] Scan Report Signed Patient: Cleo Rock R#: [id number] : 1990Acct:[id number] Age/Sex: 33 / FADM Date: 07/30/24 Loc: HO.ED Attending Dr: Ordering Physician: Caitie Wilkerson NP Date of Service: 07/30/24 Procedure(s): CT head/brain wo IV con Accession Number(s): [id number] cc: Marisa Livingston MD; Caitie Wilkerson NP Report Number: [id number]: Total DLP = 706.00 mGy-cm EXAMINATION: CT [...] 07/30/24 1200 DD/ 1139 TD/TT: 07/30/24 1153 [employer]: [facility] External Provider IMG CT PROCEDURES Final Result * XR Chest 2 Views (07/30/2024 11:28 AM EDT) Anatomical Region Laterality Modality Chest Radiographic Angelita ging 07/30/2024 11:2 8 AM EDT Narrative 07/30/2024 12:13 PM EDT ? [facility] ?[address] ?[place] [address] ?XRay Report ? Signed ? Patient: Smith Dino,Cleo J ?MR#: ?? [id number] ? : 1990 ?Acct:[id number] ? Age/Sex: 33 / F ?ADM Date: 03/14/25 ? Loc: HO.ED ? Attending Dr: ? Ordering Physician: Caitie Wilkerson NP ?? Date of Service: 07/30/24 ?? Procedure(s): XR chest 2V ?? Accession Number(s): [id number] ? cc: Marisa Livingston MD; Caitie Wilkerson [...] fractures appreciated ? Electronically signed by: ??Diego oMntana MD ??07/30/2024 11:48 AM EDT RP ? Dictated By: ?Diego Montana MD ? Signed By: ?<Electronically signed by Diego Montana MD in OV> ?07/30/24 1148 ? DD/ 1128 ? TD/TT: 07/30/24 1138 ? [employer]: ? 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 Donstephyter, Image - 07/30/[address] [address] XRay Report Signed Patient: Cleo Rock JMR#: [id number] : 1990Acct:[id number] Age/Sex: 33 / FADM Date: 07/30/24 Loc: HO.ED Attending Dr: Ordering Physician: Caitie Wilkerson NP Date of Service: 07/30/24 Procedure(s): XR chest 2V Accession Number(s): [id number] cc: Marisa Livingston MD; Caitie Wilkerson NP [...] Diego Montana MD 07/30/2024 11:48 AM EDT RP Dictated By: Diego Montana MD Signed By: <Electronically signed by Diego Montana MD in OV> 07/30/24 1148 DD/ 1128 TD/TT: 07/30/24 1138 [employer]: [facility] External Provider IMG XR PROCEDURES Final Result * T-SPOT??.TB (07/22/2024 10:48 AM EST) [facility] T Spot TB Negative Negative [facility] Comment:A negative test resu lt [...] as aquantitative test. TS PANEL A 0 [facility] TS PANEL B 1 [facility] Negative Control Passed [facility] Positive Control Passed [facility] Comment:For additional infor belia, please refer tohttp://education.Photozeen/faq/CZL050(This link is being provided for informational/educational purposes only.)THIS TEST WAS PERFORMED AT:Enbase/[id number] [place] [address]FELQHXNKHUSHI SHAY MD,PHD 07/22/2024 10:4 8 AM EST 07/22/2024 11:51 AM EST us Marisa Livingston MD LAB BLOOD ORDERABLES Fin al Result Performing Organization Address [facility]/ZIP Co de Phone Number [facility] [address] [place], [place] [phone] * (ABNORMAL) Basic Metabolic Panel (07/22/2024 10:48 AM EST) Sodium 139 135 - 145 mmol/L [facility] Potassium 3.8 3.3 - 5.1 mmol/L [facility] Chloride 109(H) 96 - 108 mmol/L [facility] Carbon Dioxide 25 22 - 29 mmol/L [facility] Anion Gap 9(L) 12 - 20 [facility] Urea Nitrogen (BUN) 8(L) 9 - 16 mg/dL [facility] Creatinine, Serum 0.58 0.5 - 1.4 mg/dL [facility] Estimated Glomerular Filt Rate >60 [facility] Comment:Chronic Kidney Disea se: Estimated GFR < 60 mL/min/1.44e3Xfxspd Kidney Disease: Estimated GFR < 15 mL/min/1.73m2 Glucose 91 60 - 115 mg/dL [facility] Calcium 9.5 8.4 - 10.2 mg/dL [facility] Blood Venous blood specimen / Unknown 07/22/2024 10:48 AM EST 07/22/2024 11:51 AM EST us Marisa Livingston MD LAB BLOOD ORDERABLES Fin al Result Performing Organization Address City/[facility]/ZIP Co de Phone Number [facility] [address] [place] [address] [phone] * Pap Smear (08/05/2023 3:15 PM EDT) 08/05/2023 3:15 PM EDT 08/07/2023 1:00 PM EDT Sophie [facility] - 08/18/2023 1:17 PM EDT ----- ------- Name: Cleo Rock ? Age/Sex: 32/F ? : 1990 Unit#: [id number] ?? Attend Dr: Amaris Salagdo CNM ?Re08/05/23 ?Status: DEP REF ? Location: HO.LNP ?Disch: ? ----- ------- SPEC : [id number] ? RECD: 08/07/23-1300 ? STATUS: ??SOUT ? REQ NUM: [id number] ? MEAGAN: 08/05/23-1515 ? SUBM DR: Amaris [...] 66, 68) ?? HPV testing performed by [facility], [place], [place]. ??See reference laboratory ?? portion of the EMR for entire report. ?Clinical Information LMP: 07/17/23 Previous PAP test: 09/17/17, WNL ? Material Received ?? ThinPrep-Cervical Copies To: ?? Marisa Livingston MD ?? [address] [facility] ?? [place] [address] ? Amaris Salgado CNM ?? [address] [place] [address] Dr. Oliver [facility] ?? [place] [address] ?? [phone] ----- ------- Signed (signature on file) IDANIA Hutchinson ([facility]) 08/18/23 1317 ? ----- ------- ? END OF REPORT ? us Generic External Data Provider LAB CYTOLOGY GILBERT UGARTE Final Result [facility] [address] [place] [phone] * HIV Ab/Ag ([facility]) (12/09/2022 1:30 PM EDT) [facility] HIV AB/AG Nonreactive Nonreactive [facility] Comment:HIV-1 p24 Ag and/or HIV-1/HIV-2 Ab not detected.A test result that is nonreactive does not exclude thepossibility of exposure to or infection with HIV-1 and/orHIV-2. Nonreactive results in this assay for individualswith prior exposure to HIV-1 and/or HIV-2 may be due toantigen and antibody levels that are below the limit ofdetection of this assay.The [employer] Screen [employer]ricator HIV Ag/Ab Combo assay result andsupplemental assay results should be interpreted inconjunction with the patient's clinical presentation,history and other laboratory results. If the results areinconsistent with clinical evidence, additional testing issuggested to confirm the result. 12/09/2022 1:30 PM EDT 12/09/2022 4:12 PM EDT us Marisa Livingston MD LAB BLOOD ORDERABLES Fin al Result Performing Organization Address [facility] Co de Phone Number [facility] [address] [place] [address] [phone] * Lipid Panel, Standard (12/09/2022 1:30 PM EDT) Triglycerides 56 mg/dL [facility] Comment:Desirable Triglyceri de: less than 150 mg/dLBorderline High Triglyceride 150-199 mg/dLHigh Triglyceride: 200-499 mg/dLVery High Triglyceride: greater than or equal to 5OO mg/dL Cholesterol 114 mg/dL [facility] Comment:Desirable Cholestero l: less than 200 mg/dLBorderline High Cholesterol: 200-239 mg/dLHigh Cholesterol: greater than 239 mg/dL LDL Cholesterol Calculated 65 mg/dl [facility] Comment:Desirable LDL: less than 100 mg/dLNear Optimal/Above Optimal LDL: 110- 129 mg/dLBorderline High LDL: 130-159 mg/dLHigh LDL: 160-189 mg/dLVery High LDL: greater than or equal to 190 mg/dL HDL Cholesterol 38 mg/dL [facility] Comment:Desirable HDL: great er than 40 mg/dL Note: This HDL assay may give artificially low results in patients with liver disease. 12/09/2022 1:30 PM EDT 12/09/2022 4:12 PM EDT us Marisa Livingston MD LAB BLOOD ORDERABLES Fin al Result Performing Organization Address [facility]/ZIP Co de Phone Number [facility] [address] [place] [address] [phone] from Last 3 Months or Most Recently Relevant to Health Maintenance Insurance [facility] C3 [facility]AL-[facility] MEDICAID STAND ADULT Care Teams Magnetic Resonance Imaging Coordinator Relationship Specialty Start Date End Date Marisa Livingston MD [address] [place] [phone] PCP - General Family Medicine 03/12/19 Perez Vergara RN [address] [place] [phone] International Marketing SpecialistPlc Technician 06/30/24
--- OUTSIDE RECORDS SUMMARY | 2024-09-27 12:48 | XMS_ITS | Encounter Summary ---
Author Organization [employer] Address [address] [place] [address] [address] Care Team Providers Care Lather Apprentice Name Role Phone Marisa Livingston MD Primary Care Provider + Perez Vergara RN Unavailable [phone] Reason for Referral * Consultation (Routine) - Closed Specialty Diagnoses / Procedures Referred By Contac t Referred To Contact Hematology and Oncology Diagnoses Chronic anemia Jaki Curz MD [address] [place] [address] Phone: tel: fax: [address] Phone: tel: fax: Referral ID Status Reason Start Date Expiration Date V isits Requested Visits Authorized [id number] Closed Specialty Services Required 06/17/2024 06/17/2025 6 6 Encounter Details Date Type Department Care Team (Late st Contact Info) Description 06/17/2024 Orders Only [facility] [address] [place] [address] [phone] Jaki Cruz MD [address] [place] [address] [phone] Chronic anemia (Primary Dx) Social History Tobacco [...] t he electric, gas, oil or water [employer] threatened to shut off services in your [...] Description 10/18/2024 3:30 PM EDT Clinical Support [facility] DIABETES/NUTRITION [address] [place] [phone] [place] [address] 12/20/2024 9:00 AM EDT Office Visit [facility] MED[facility] [address] [place] [address] [phone] Marisa Livingston MD [address] [place], [place] [phone] Pending Results Name Type Priority Associated Diagnoses [...] documented as of this encounter Care Teams Lather Apprentice Relationship Specialty Start Date End Date Marisa Livingston MD [address] [place] [address] PCP - General Family Medicine 03/12/19 Perez Vergara RN [address] [place] [address] Farmer GeneralCopper Flotation Operator 06/30/24 documented as of this encounter
--- OUTSIDE RECORDS SUMMARY | 2024-09-27 12:49 | XMS_ITS | Encounter Summary ---
Author Organization [employer] Address [address] [facility] 7 [place] [address] Care Team Providers Care Compress Machine Operator Name Role Phone Marisa Livingston MD Primary Care Provider + Perez Vergara RN Unavailable [phone] Reason for Visit * Reason Comments Med Refill Encounter Details Date Type Department Care Team ([facility] st Contact Info) Description 09/25/2024 Refill [facility] MEDICINE 230 [place] [address] Marisa Livingston MD [address] [place] [address] Social History Tobacco Use Types Packs/Day Years [...] Description 10/18/2024 3:30 PM EDT Clinical Support [facility] DIABETES/NUTRITION [address] [place] [address] [place] [address] 12/20/2024 9:00 AM EDT Office Visit [facility] MEDICINE [address] [place] [address] Marisa Livingston MD [address] [place] [address] documented as of this encounter Visit Diagnoses Not on filedocumented in this encounter Additional Health Concerns Assessment Noted Time PHQ-9 Depression Total Score: 17 025 9:47 AM EST documented as of this encounter Care Teams Compress Machine Operator Relationship Specialty Start Date End Date Marisa Livingston MD [address] [place] [address] [phone] PCP - General Family Medicine 03/12/19 Perez Vergara RN [address] [place] [address] [place] [id number] Student Accounts ManagerAir Brush Operator 06/30/24 documented as of this encounter
--- OUTSIDE RECORDS SUMMARY | 2024-09-27 12:49 | XMS_ITS | Encounter Summary ---
Author Organization [employer] Address [address] [facility] 7t [place] [address] Care Team Providers Care Cardiology Associate Name Role Phone Marisa Livingston MD Primary Care Provider + Perez Vergara RN Unavailable [phone] Reason for Visit * Reason Comments Med Refill Encounter Details Date Type Department Care Team ([facility] st Contact Info) Description 05/27/2024 Refill [facility] MEDICINE 230 [place] [address] Marisa Livingston MD 230 [place] [address] Social History Tobacco Use Types Packs/Day Years [...] Description 10/18/2024 3:30 PM EDT Clinical Support [facility] DIABETES/NUTRITION [address] [place] [phone] [place] [address] 12/20/2024 9:00 AM EDT Office Visit [facility] [address] [place] [address] Marisa Livingston MD [address] [place] [address] documented as of this encounter Visit Diagnoses Not on filedocumented in this encounter Additional Health Concerns Assessment Noted Time PHQ-9 Depression Total Score: 17 024 9:31 AM EST documented as of this encounter Care Teams Cardiology Associate Relationship Specialty Start Date End Date Marisa Livingston MD 230 [place] [address] PCP - General Family Medicine 03/12/19 Perez Vergara RN [address] [place] [address] Lockstitch HemmerDolly Operator 06/30/24 documented as of this encounter
--- OUTSIDE RECORDS SUMMARY | 2024-09-27 12:49 | XMS_ITS | Encounter Summary ---
Author Organization [employer] Address [address] [facility] 7 [place] [address] Care Team Providers Care Tablet Tester Name Role Phone Marisa Livingston MD Primary Care Provider + Perez Vergara RN Unavailable [phone] Reason for Visit * Reason Onset Date Comments Appointment Request 07/09/2024 Encounter Details Date Type Department Care Team ([facility] st Contact Info) Description 07/09/2024 Telephone [facility] MEDICINE [address] [place] [address] Marisa Livingston MD 230 [place], [place] [phone] Appointment Request Social History Tobacco Use Types [...] to reschedule appt with pcp. Contact pt, namibian documented in this encounter Plan of Treatment Upcoming Encounters Date Type Department Care Team (Late st Contact Info) Description 10/18/2024 3:30 PM EDT Clinical Support [facility] DIABETES/NUTRITION [address] [place] [phone] [place], [place] [phone] 12/20/2024 9:00 AM EDT Office Visit [facility] MEDICINE 230 [place], [place] [phone] Marisa Livingston MD [address] [place], [place] [phone] documented as of this encounter Visit Diagnoses Not on filedocumented in this encounter Additional Health Concerns Assessment Noted Time PHQ-9 Depression Total Score: 17 024 9:31 AM EST documented as of this encounter Care Teams Tablet Tester Relationship Specialty Start Date End Date Marisa Livingston MD 230 [place] [address] PCP - General Family Medicine 03/12/19 Perez Vergara RN [address] [place] [phone] Claim Service RepresentativeMedical Investigator 06/30/24 documented as of this encounter
--- OUTSIDE RECORDS SUMMARY | 2024-09-27 12:49 | XMS_ITS | Encounter Summary ---
Author Organization [employer] Address [address] [place] [address] 7[place] [address] Care Team Providers Care Cigar Head Stringer Name Role Phone Marisa Livingston MD Primary Care Provider + Perez Vergara RN Unavailable [phone] Encounter Details Date Type Department Care Team (Late Contact Info) Description 06/27/2022 Abstract [facility] ADULT DENTAL [address] [place] [address] Jeramie Treadwell DDS [address] [place], [place] [phone] Social History Tobacco Use Types Packs/Day Years [...] Description 10/18/2024 3:30 PM EDT Clinical Support [facility] DIABETES/NUTRITION [address] [place] [address] [place] [address] 12/20/2024 9:00 AM EDT Office Visit [facility] MEDICINE [address] [place] [address] Marisa Livingston MD 230 [place] [address] documented as of this encounter Visit Diagnoses Not on filedocumented in this encounter Care Teams Cigar Head Stringer Relationship Specialty Start Date End Date Marisa Livingston MD [address] [place], [place] [phone] PCP - General Family Medicine 03/12/19 Perez Vergara, [place] [address] [place] [address] Building EconomistCurriculum Designer 06/30/24 documented as of this encounter
--- OUTSIDE RECORDS SUMMARY | 2024-09-27 12:49 | XMS_ITS | Encounter Summary ---
Author Organization [employer] Address 75 [facility] 7t [place] [address] Care Team Providers Care Research Contracts Supervisor Name Role Phone Marisa Livingston MD Primary Care Provider + Perez Vergara RN Unavailable Reason for Visit * Reason Onset Date Comments Appointment 07/12/2022 Encounter Details Date Type Department Care Team (Late st Contact Info) Description 07/12/2022 Telephone [facility] ADULT DENTAL [address] [place] [address] Yeison Arnold, DMD [address] [place] [address] Appointment Social History Tobacco Use Types Packs/Day [...] transfercal but no answer. Following up with jose raul. documented in this encounter Plan of Treatment Upcoming Encounters Date Type Department Care Team (Late st Contact Info) Description 10/18/2024 3:30 PM EDT Clinical Support [facility] DIABETES/NUTRITION [address] [place] [address] [place] [address] 12/20/2024 9:00 AM EDT Office Visit [facility] MEDICINE [address] [place] [address] Marisa Livingston MD 230 [place] [address] documented as of this encounter Visit Diagnoses Not on filedocumented in this encounter Additional Health Concerns Assessment Noted Time PHQ-9 Depression Total Score: 4 07/03/19 23 10:39 AM EST documented as of this encounter Care Teams Research Contracts Supervisor Relationship Specialty Start Date End Date Marisa Livingston MD [address] [place] [address] PCP - General Family Medicine 03/12/19 Perez Vergara RN [address] [place] [address] Assistant Case ManagerTechnology Instructor 06/30/24 documented as of this encounter
--- OUTSIDE RECORDS SUMMARY | 2024-09-27 12:49 | XMS_ITS | Encounter Summary ---
Author Organization [employer] Address [address] 7t [place] [address] Care Team Providers Care Behavioral Therapy Coordinator Name Role Phone aMrisa Livingston MD Primary Care Provider + Perez Vergara RN Unavailable [phone] Encounter Details Date Type Department Care Team (Latest Contact Info) Description 09/23/2024 Travel Social History Tobacco Use Types Packs/Day [...] Description 10/18/2024 3:30 PM EDT Clinical Support [facility] DIABETES/NUTRITION [address] [place] [phone] [place] [phone] 12/20/2024 9:00 AM EDT Office Visit [facility] MEDICINE [address] [place] [address] Marisa Livingston MD [address] [place] [address] documented as of this encounter Visit Diagnoses Not on filedocumented in this encounter Additional Health Concerns Assessment Noted Time PHQ-9 Depression Total Score: 17 025 9:47 AM EST documented as of this encounter Care Teams Behavioral Therapy Coordinator Relationship Specialty Start Date End Date Marisa Livingston MD [address] [place] [address] PCP - General Family Medicine 03/12/19 Perez Vergara RN [address] [place] [address] Dev Ops EngineerDocument Management Analyst 06/30/24 documented as of this encounter
--- OUTSIDE RECORDS SUMMARY | 2024-09-27 12:49 | XMS_ITS | Encounter Summary ---
Author Organization [employer] Address [address] [place] [address] 7t [place] [address] Care Team Providers Care Telephone Technician Name Role Phone Marisa Livingston MD Primary Care Provider + Perez Vergara RN Unavailable [phone] Encounter Details Date Type Department Care Team (Late st Contact Info) Description 07/19/2022 Abstract [facility] ADULT DENTAL 230 [place] [address] Berlin Hagen, DMD [address] [place] [address] Social History Tobacco Use Types Packs/Day Years [...] Description 10/18/2024 3:30 PM EDT Clinical Support [facility] DIABETES/NUTRITION 230 [place], [place] [phone] Mandi Pinedo [address] [place] [address] 12/20/2024 9:00 AM EDT Office Visit [facility] MEDICINE 230 [place], [place] [phone] Marisa Livingston MD [address] [place] [address] documented as of this encounter Visit Diagnoses Not on filedocumented in this encounter Additional Health Concerns Assessment Noted Time PHQ-9 Depression Total Score: 4 07/03/19 23 10:39 AM EST documented as of this encounter Care Teams Telephone Technician Relationship Specialty Start Date End Date Marisa Livingston MD [address] [place] [address] PCP - General Family Medicine 03/12/19 Perez Vergara RN [address] [place] [address] Sewing Department SupervisorDairy Products Maker 06/30/24 documented as of this encounter
--- OUTSIDE RECORDS SUMMARY | 2024-09-27 12:49 | XMS_ITS | Encounter Summary ---
Author Organization [employer] Address [address] [facility] 7 [place] [address] Care Team Providers Care Base Draw Operator Name Role Phone Marisa Livingston MD Primary Care Provider + Perez Vergara RN Unavailable [phone] Reason for Visit * Reason Onset Date Comments Chart Prep 09/22/2024 Encounter Details Date Type Department Care Team (Late st Contact Info) Description 09/22/[address] [facility] MEDICINE [address] [place] [address] Marisa Livingston MD [address] [place], [place] [phone] Chart Prep Social History Tobacco Use Types Packs/Day Years [...] encounter Miscellaneous Notes * Telephone Encounter - Anabel De Guzman [place] - 09/22/2024 2:22 PM EDT Chart Prep Labs: done Images: done Referrals: appointment pending [facility] INSURANCE LEGAL ASSISTANT Vaccines due: Covid, Flu, and Hep B Screenings: Hepatitis C Screening Overdue care gaps: SBIRT, SALENA-7, and Disability screen documented in this encounter Plan of Treatment Upcoming Encounters Date Type Department Care Team (Late st Contact Info) Description 10/18/2024 3:30 PM EDT Clinical Support [facility] DIABETES/NUTRITION [address] [place] [phone] [place], [place] [phone] 12/20/2024 9:00 AM EDT Office Visit [facility] MEDICINE [address] [place] [address] [phone] Marisa Livingston MD [address] [place], [place] [phone] documented as of this encounter Visit Diagnoses Not on filedocumented in this encounter Additional Health Concerns Assessment Noted Time PHQ-9 Depression Total Score: 17 025 9:47 AM EST documented as of this encounter Care Teams Base Draw Operator Relationship Specialty Start Date End Date Marisa Livingston MD [address] [place] [address] PCP - General Family Medicine 03/12/19 Perez Vergara RN [address] [place] [phone] Formulation TechnicianHunter 06/30/24 documented as of this encounter
--- OUTSIDE RECORDS SUMMARY | 2024-09-27 12:49 | XMS_ITS | Encounter Summary ---
Author Organization [employer] Address 75 [facility] 7 [place] [address] Care Team Providers Care Application Security Specialist Name Role Phone Marisa Livingston MD Primary Care Provider + Perez Vergara RN Unavailable [phone] Reason for Visit * Reason Comments Care Coordination Appt reminder Encounter Details Date Type Department Care Team (Latest Contact Info) Description 09/24/2024 Patient Outreach [facility] MEDICINE [address] [place] [address] Marisa Livingston MD [address] [place] [address] Care Coordination (Appt reminder) Social History Tobacco Use Types Packs/Day Years [...] as of this encounter Progress Notes * Nadia Gonzalez - 09/24/2024 1:12 PM EDT CHW Nadia Gonzalez placed call to patient to remind of appt for 09/27/24 at 1:00pm [facility], patient is aware and has no barriers in attending. documented in this encounter Plan of Treatment Upcoming Encounters Date Type Department Care Team (Late st Contact Info) Description 10/18/2024 3:30 PM EDT Clinical Support [facility] DIABETES/NUTRITION [address] [place] [address] [place] [address] 12/20/2024 9:00 AM EDT Office Visit [facility] MEDICINE [address] [place], [place] [phone] Marisa Livingston MD [address] [place] [address] documented as of this encounter Visit Diagnoses Not on filedocumented in this encounter Additional Health Concerns Assessment Noted Time PHQ-9 Depression Total Score: 17 025 9:47 AM EST documented as of this encounter Care Teams Application Security Specialist Relationship Specialty Start Date End Date Marisa Livingston MD [address] [place] [address] PCP - General Family Medicine 03/12/19 Perez Vergara RN [address] [place] [phone] Fiscal Services ManagerExtrusion Press Supervisor 06/30/24 documented as of this encounter
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
--- OUTSIDE RECORDS SUMMARY | 2024-09-27 12:49 | XMS_ITS | Encounter Summary ---
Author Organization [facility] Address [address] [place] [address] [address] Care Team Providers Care Critical Care Rn Name Role Phone Marisa Livingston MD Primary Care Provider + Perez Vergara RN Unavailable [phone] Encounter Details Date Type Department Care Team (Latest Contact Info) Description 03/26/2019 Abstract [facility] CONVERSIONS Dental, Provider, DDS Social History [...] Care Team ( st Contact Info) Description 10/18/2024 3:30 PM EDT Clinical Support [facility] DIABETES/NUTRITION [address] [place] [address] [place], [place] [phone] 12/20/2024 9:00 AM EDT Office Visit [facility] MEDICINE [address] [place] [address] [phone] Marisa Livingston MD [address] [place], [place] [phone] documented as of this encounter Visit Diagnoses Not on filedocumented in this encounter Care Teams Critical Care Rn Relationship Specialty Start Date End Date Marisa Livingston MD [address] [place] [address] PCP - General Family Medicine 03/12/19 Perez Vergara, CHAPITO [address] [place] [address] Sustainability EngineerCyber Intelligence Analyst 06/30/24 documented as of this encounter
--- OUTSIDE RECORDS SUMMARY | 2024-09-27 12:49 | XMS_ITS | Encounter Summary ---
Author Organization [employer] Address [address] [facility] 7 [place] [address] Care Team Providers Care Social Sciences Chair Name Role Phone Marisa Livingston MD Primary Care Provider + Perez Vergara RN Unavailable Reason for Visit * Reason Comments Care Coordination Encounter Details Date Type Department Care Team ([facility] st Contact Info) Description 09/23/2024 Patient Outreach [facility] MEDICINE [address] [place] [address] Marisa Livingston MD [address] [place], [place] [phone] Care Coordination Social History Tobacco Use Types Packs/Day Years [...] encounter Progress Notes * Nadia Gonzalez - 09/23/2024 9:01 AM EDT CHW Nadia Gonzalez placed call to patient to remind of appt for today PE with PCP on 09/23/24 at 10:45am, patient states she has no barriers in attending. documented in this encounter Plan of Treatment Upcoming Encounters Date Type Department Care Team (Late st Contact Info) Description 10/18/2024 3:30 PM EDT Clinical Support [facility] DIABETES/NUTRITION [address] [place] [address] [place] [address] 12/20/2024 9:00 AM EDT Office Visit [facility] MEDICINE [address] [place], [place] [phone] Marisa Livingston MD [address] [place] [address] documented as of this encounter Visit Diagnoses Not on filedocumented in this encounter Additional Health Concerns Assessment Noted Time PHQ-9 Depression Total Score: 17 025 9:47 AM EST documented as of this encounter Care Teams Social Sciences Chair Relationship Specialty Start Date End Date Marisa Livingston MD [address] [place] [address] PCP - General Family Medicine 03/12/19 Perez Vergara RN [address] [place] [address] Back Roll Lathe OperatorEvent Operations Manager 06/30/24 documented as of this encounter
--- OUTSIDE RECORDS SUMMARY | 2024-09-27 12:49 | XMS_ITS | Encounter Summary ---
Author Organization [employer] Address [address] [place] [address] [address] [place] [address] Care Team Providers Care Compliance Nurse Name Role Phone Marisa Livingston MD Primary Care Provider + Perez Vergara RN Unavailable [phone] Encounter Details Date Type Department Care Team (Latest Contact Info) Description 02/27/2022 Abstract [facility] CONVERSIONS Dental, Provider, DDS Social History [...] Description 10/18/2024 3:30 PM EDT Clinical Support [facility] DIABETES/NUTRITION [address] [place] [phone] [place] [address] 12/20/2024 9:00 AM EDT Office Visit [facility] MEDICINE [address] [place] [address] Marisa Livingston MD [address] [place], [place] [phone] documented as of this encounter Visit Diagnoses Not on filedocumented in this encounter Care Teams Compliance Nurse Relationship Specialty Start Date End Date Marisa Livingston MD [address] [place] [address] PCP - General Family Medicine 03/12/19 Perez Vergara RN [address] [place] [address] AvpHide Dropper 06/30/24 documented as of this encounter
[2024-09-27 13:01] VITALS: BP 120/72; PULSE 72; BMI 33.7
--- NOTE | 2024-09-27 13:01 | A.OFFVIS_ITS ---
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/Cardiac enlargement Intake Note: New patient dx cardiac enlargement echo was in Jun c/o c/o leg swelling and palpitations mostly at rest Allergies latex Allergy (Verified 09/22/24 13:26) Rash Medication List - Last Reconciled 09/27/24 by Galen Pierce MD albuterol sulfate 90 mcg/actuation 2 puffs inhalation Q4-6H PRN aripiprazole 5 mg PO DAILY benralizumab 30 mg subcut Q8W 56 days benzonatate 100 mg PO TID PRN bupropion HCl XL 150 mg PO DAILY fluticasone propion-salmeterol 230-21 mcg/actuation (Advair HFA) 2 puffs inhalation BID 30 days ipratropium-albuterol 0.5 mg-3 mg(2.5 mg base)/3 mL 3 mL inhalation Q4-6H PRN naproxen 500 mg PO BID PRN 7 days oxcarbazepine 150 mg PO BID sumatriptan succinate 0 mg PO DAILY trazodone 50 mg PO DAILY PRN HPI Comments Details: Thank you for referring Cleo in cardiology consultation today for symptoms of exertional shortness of breath as well as leg edema and symptoms suggestive of orthopnea. She has longstanding history of asthma which was felt to be severe and persistent but her asthma has been under controlled as per her. Since last January she has been having increasing symptoms of shortness of breath laying down and she has to sleep either on 5 pillows or has to get up. She is also notice since then bilateral leg edema. She had presented in May to the hospital at that time she had workup done including a CT chest as well as chest x-ray which both suggested cardiomegaly. She had biventricular enlargement on CAT scan. She subsequently underwent echocardiogram which showed low normal LVF of 50-55% with normal RV size and function. No major valvular abnormality. She continues to remain persistently symptomatic and gets short of breath climbing a flight of stairs a when she walks for longer distance. She is concerned about the symptoms and was advised to see Cardiology for it. Her mother at a young age at 23 sudden cardiac , does not know clinical syndrome or scenario around it much. She denies any significant alcohol or caffeine use. Denies any smoking. [facility] Medical History Asthma Family History Daughter Cancer of brain Maternal Grandfather Colon cancer Paternal Grandfather Throat cancer Mother Heart problem Social History Household Members: Children Housing: House Alcohol intake: never Patient Tobacco Use Status: Former Tobacco user Current occupational status: employed Gender identity: Female Female Reproductive History Menstrual Age of Menarche: 5 Review of Systems Const Denies chills, Denies daytime sleepiness, Denies fatigue, Denies fever(s), Denies frequent falls, Denies poor appetite, Denies snoring, Denies stops breathing during sleep, Denies weakness, Denies weight gain and Denies weight loss Eyes Denies loss of vision ENT Denies dizziness and Denies hearing loss Card Denies chest pain, Denies claudication, Denies leg edema, Denies lightheadedness, Denies palpitations, Denies dyspnea, Denies dyspnea on exertion and Denies orthopnea Resp Denies cough, Denies excessive phlegm production, Denies dyspnea, Denies dyspnea on exertion, Denies snoring and Denies wheezing GI Denies abdominal pain, Denies hematochezia, Denies change in bowel habits, Denies nausea and Denies vomiting Denies urinary frequency and Denies dysuria Musc Denies arthralgias, Denies muscle weakness, Denies numbness and Denies other (frequent falls) Skin/Breast Denies nail changes and Denies rash Neuro Denies Abnormal speech present, Denies dizziness, Denies frequent falls, Denies loss of vision, Denies memory loss, Denies numbness and Denies weakness Psych Denies depression and Denies memory loss Endo Denies fatigue and Denies palpitations Rick/Lymph Reports easy bruising and Reports other (anemia) Aller/Immun Denies wheezing Physical Exam Vital Signs: Last Vital Signs Pulse 72 09/27/24 13:01 BP 120/72 09/27/24 13:01 BMI result Body Mass Index 33.7 Const General: cooperative, comfortable, no acute distress, alert and awake Orientation/consciousness: patient oriented x3 Limitations: no limitations HEENT Head: Yes normocephalic and Yes atraumatic Neck Neck: Yes trachea midline, Yes supple and Yes JVD Resp Effort & Inspection: normal respiratory effort Auscultation: clear to auscultation bilaterally Cardio Jugular venous distension: no JVD Palpation: normal PMI Rate: regular rate Rhythm: regular rhythm Heart sounds: S1 normal heart sound present, S2 normal heart sound present, no click, no gallops, no murmurs and no rubs GI Auscultation: normal bowel sounds Skin General skin exam: no rashes or lesions noted Neuro General: patient oriented x3 and no focal motor deficits Speech: No Abnormal speech present Extrem General: Yes no clubbing, cyanosis or edema Psych Appearance: grossly normal Office Procedures EKG Details: EKG shows normal sinus rhythm with normal EKG [id number], Complete Assessment & Plan Assessment & Plan (1) Cardiomyopathy: Code(s): I42.9 - Cardiomyopathy, unspecified Category: Medical Plan: Patient presents with symptoms of progressive shortness of breath along with leg edema and symptoms suggestive of orthopnea. Her asthma symptoms she says been well controlled on current therapy and sees Pulmonary for it. Echocardiogram shows low normal LV ejection fraction 50-55% without any RV enlargement or chamber enlargement. However CT scan of chest shows biventricular enlargement. Family history of mother dying at age 23 from sudden cardiac of unclear etiology. She is not aware of any other findings of cardiomyopathy or congestive heart failure in the family. However given her low normal EF in his symptoms cardiomyopathy process is likely. Clinically appears to be mildly fluid overloaded. Will check BMP and BNP today. If she has elevated BNP will start on loop diuretic therapy and other alternative therapy for neurohormonal modulation as well. Meanwhile will also suggest her to undergo cardiac MRI to evaluate for genetic cardiomyopathy process. This will be scheduled in near future. Follow up in the clinic in 6 weeks time, sooner p.r.n.. Thank you for allowing me to partake in her care Orders: Orders B Type Natriuretic Peptide Today I42.9 - Cardiomyopathy, unspecified Basic Metabolic Panel Today I42.9 - Cardiomyopathy, unspecified MR cardiac morph fnct w/wo con 1 Week I42.9 - Cardiomyopathy, unspecified Coding Level of Care Code New Pt Level 4 (15125) Complex EM visit Add On G2211 Diagnoses Cardiomyopathy I42.9 CPT Codes EKG - CPT: 16692-[id number], Complete ([id number])
== END 2024-09-27 13:41 | disposition home or self-care (01) ==
LOC: HO.HCS 12:21
PROVIDERS: PCP Internal Medicine; Visit Provider Internal Medicine Cardiovascular Disease
DX: I42.9 Cardiomyopathy, unspecified (principal)
CPT/HCPCS: 93010; 99204

== ENCOUNTER 2024-09-27 12:20 | Outpatient (REF) | payer MEDICAID, SELFPAY ==
--- OUTSIDE RECORDS SUMMARY | 2024-09-27 14:05 | XMS_ITS | Encounter Summary ---
Author Organization [employer] Address [address] [place] [address] [address] [address] Care Team Providers Care Supervisor Jewelry Department Name Role Phone Marisa Livingston MD Primary Care Provider + Perez Vergara RN Unavailable [phone] Reason for Referral * Consultation (Routine) - Closed Specialty Diagnoses / Procedures Referred By Contac t Referred To Contact Hematology and Oncology Diagnoses Chronic anemia Jaki Cruz MD [address] [place] [id number] Phone: tel: fax: [address] Phone: tel: fax: Referral ID Status Reason Start Date Expiration Date V isits Requested Visits Authorized [id number] Closed Specialty Services Required 06/17/2024 06/17/2025 6 6 Encounter Details Date Type Department Care Team (Late st Contact Info) Description 06/17/[address] [facility] [address] [place] [address] [phone] Jaki Cruz MD [address] [place] [address] [phone] Chronic anemia (Primary Dx) Social History Tobacco [...] t he electric, gas, oil or water [employer] threatened to shut off services in your [...] Description 10/18/2024 3:30 PM EDT Clinical Support [facility] [address] [place] [phone] [place] [address] 12/20/2024 9:00 AM EDT Office Visit [facility] [address] [place] [address] [phone] Marisa Livingston MD [address] [place], [place] [phone] Pending Results Name Type Priority Associated Diagnoses [...] as of this encounter Care Teams Supervisor Jewelry Department Relationship Specialty Start Date End Date Marisa Livingston MD [address] [place] [address] PCP - General Family Medicine 03/12/19 Perez Vergara RN [address] [place] [phone] Chief Scientific OfficerHourly Shift Manager 06/30/24 documented as of this encounter
--- OUTSIDE RECORDS SUMMARY | 2024-09-27 14:05 | XMS_ITS | Encounter Summary ---
Author Organization [employer] Address [address] [facility] [address] [place] [address] Care Team Providers Care Vice President Of Business Development Name Role Phone Marisa Livingston MD Primary Care Provider + Perez Vergara RN Unavailable [phone] Reason for Visit * Reason Comments Med Refill Encounter Details Date Type Department Care Team ([facility] st Contact Info) Description 03/04/2024 Refill [facility] [address] [place] [address] Marisa Livingston MD [address] [place] [address] Social History Tobacco Use Types Packs/Day Years [...] Description 10/18/2024 3:30 PM EDT Clinical Support [facility] [address] [place] [phone] [place] [address] 12/20/2024 9:00 AM EDT Office Visit [facility] [address] [place] [phone] Marisa Livingston MD [address] [place] [phone] documented as of this encounter Visit Diagnoses Not on filedocumented in this encounter Additional Health Concerns Assessment Noted Time PHQ-9 Depression Total Score: 17 024 9:31 AM EST documented as of this encounter Care Teams Vice President Of Business Development Relationship Specialty Start Date End Date Marisa Livingston MD [address] [place] [address] PCP - General Family Medicine 03/12/19 Perez Vergara RN [address] [place] [phone] Metal Or Wood BlockerUltrasound Technologist 06/30/24 documented as of this encounter
--- OUTSIDE RECORDS SUMMARY | 2024-09-27 14:05 | XMS_ITS | Clinical Summary ---
Author Organization [employer] Address [address] [facility] [address] [place] [address] Care Team Providers Care Wine Steward Name Role Phone Marisa Livingston MD Primary Care Provider + Perez Vergara RN Unavailable [phone] Allergies Active Allergy Reactions Criticality Noted [...] hours. Active Nebulizers (Vios Aerosol Delivery System) [facility]. 3 Active Fasenra Pen [...] 4 Active ergocalciferol (Vitamin D2) 1.25 MG (33352 UT) capsule TAKE 1 CAPSULE(1.25 MG) BY [...] of pulmonary embolus or acute aortic syndrome. Whky-co-kgdniawu cardiac enlargement with predominantly biventricular dilatation. Enlarged [...] of pulmonary embolus or acute aortic syndrome. Dznt-qk-dnepsxxa cardiac enlargement with predominantly biventricular dilatation. Enlarged main pulmonary artery suggesting pulmonary arterial hypertension. -will refer to cardiology Moderate persistent asthma without complication 06/17/2024 Assessment & Plan (09/23/2024 3:54 PM EDT): Significantly improved with with Advair and DuoNeb as needed, follow-up with commercial lines sales executive [employer]O for Sam still pending Will consider allergy testing after next pulmonology visit Advised regarding flu and COVID vaccinations in the fall Assessment & Plan (07/14/2024 10:59 AM EST): Uncontrolled, worsening s/p Influenza. Chronic exposure to environmental allergens and extreme temperatures. Continue close FU with Application Tester. Continue Advair plus Duo Neb, awaiting pa for Sam. Will consider allergy testing. Menorrhagia with regular cycle 04/16/2023 Assessment & Plan (07/14/2024 10:51 AM EST): Persistent, most probable cause of anemia. I will refer to Manager Rfid at [facility] for treatment that may include IUD [...] exercise, life style modifications, diet, referral to victims advocate clerk/specialist. Discussed re lower calorie intake, increase dietary fiber Assessment & Plan (11/22/2022 1:34 PM EDT): Discussed re weight reduction options including exercise, life style modifications, diet, referral to victims advocate clerk/specialist. Discussed re lower calorie intake, increase dietary [...] -Uncontrolled. -Restart Advair Diskus -Follow up with insurance processor for immunotherapy. -Counseled on protocol for FMLA [...] gave today NBZ machine written prescription to [facility] nurse staff -Alarm signs and [...] anti-muscarinic inhaler as Trelegy -Referred today to commercial lines sales executive for uncontrolled asthma Assessment & Plan (07/03/2022 12:50 PM EST): Uncontrolled. Start Flovent BID. She agreed to influenza and PCV 20 today, declined Covid IZ. DUB (dysfunctional uterine bleeding) 07/03/2022 Assessment & Plan (09/23/2024 3:56 PM EDT): Improving but still significant, menstrual periods are more regular now. Follow- up with [facility] Advised to continue p.o. iron as tolerated and follow-up with hematology as well She will follow-up with [facility] regarding desire for after all medical conditions [...] exercise, life style modifications, diet, referral to victims advocate clerk/specialist. Discussed re lower calorie intake, increase dietary [...] at home PAP smear: Overdue, refer to intelligence operations will need further eval for DUB Adult [...] Type Department Care Team Description 09/25/2024 Refill [facility] [address] [place] [phone] Marisa Livingston MD 09/24/2024 Patient Outreach [facility] [address] [place] [phone] Marisa Livingston MD Care Coordination (Appt reminder) 09/23/2024 10:45 AM EDT Office Visit [facility] [address] [place] [phone] Marisa Livingston MD Class 1 obesity due to excess calories without serious comorbidity with body mass index (BMI) of 33.0 to 33.9 in adult (Primary Dx); Encounter for preventive health examination; Moderate persistent asthma without complication; DUB (dysfunctional uterine bleeding); Cardiac enlargement; Dietary counseling; Exercise counseling; Encounter for complete eye exam 09/23/2024 Travel 09/23/2024 Patient Outreach [address] [place] [address] [address] Marisa Livingston MD Care Coordination 09/22/[address] [address] Marisa Livingston MD Chart Prep 09/21/[address] [address] Marisa Livingston MD Care Management (C3CM- f/u call) 09/20/2024 1:30 PM EDT Clinical Support [facility] [address] [place] [phone] Obesity due to excess calories without serious comorbidity, unspecified class (Primary Dx) 09/20/2024 Travel 09/16/2024 Patient Outreach [address] [address] Marisa Livingston MD Pre-visit Planning (SDOH screening completed on 06/29/24) 09/10/[address] [address] Marisa Livingston MD Care Management (C3- f/u call #3 lvm) 09/07/2024 Patient Outreach [facility] [address] [place], [place] [phone] Marisa Livingston MD Transition Of Care (Tcm) 09/05/2024 Orders Only [facility] External Provider, [facility] 08/31/2024 10:30 AM EDT Clinical Support [facility] [address] [place] [phone] Obesity due to excess calories without serious comorbidity, unspecified class (Primary Dx) 08/31/2024 Travel 08/30/2024 Telephone [facility] [address] [place] [address] [phone] Marias Livingston MD Care Management (C3- f/u call #2 lvm) 08/18/2024 8:00 AM EDT Office Visit [facility] [address] [place] [address] Zoe Monroy DMD 08/18/2024 Travel 08/17/2024 Telephone [facility] [address] [place] [phone] Marisa Livingston MD Care Management (C3CM- f/u call lvm) 08/06/2024 3:00 PM EDT Clinical Support [facility] [address] [place] [phone] Obesity due to excess calories without serious comorbidity, unspecified class 08/06/2024 11:00 AM EDT Office Visit [facility] [address] [place] [address] Glo Lainez DDS 08/06/2024 Travel 08/04/2024 Telephone [facility] [address] [place] [phone] Marisa Livingston MD Care Management (C3CM- f/u call) 07/30/2024 Orders Only [facility] External Provider, [facility] 07/30/2024 Population Health Risk Score [facility] (C3) Department [address] [place] [address] [phone] Provider, Population Health Generic 07/29/2024 Telephone [facility] [address] [place] [address] [phone] Marisa Livingston MD Nurse Triage 07/27/2024 Refill [facility] [address] [place] [address] [phone] Marisa Livingston MD Moderate persistent asthma without complication 07/23/2024 Telephone [facility] [address] [place] [address] [phone] Marisa Livingston MD Care Management (C3- f/u call) 07/22/2024 Telephone [facility] [address] [place] [phone] Marisa Livingston MD Results 07/14/2024 10:00 AM EST Telemedicine [facility] [address] [place] [phone] Marisa Livingston MD Moderate persistent asthma without complication (Primary Dx); Cardiac enlargement; Menorrhagia with regular cycle; Obesity due to excess calories without serious comorbidity, unspecified class 07/14/2024 Patient Outreach [facility] [address] [place] [phone] Marisa Livingston MD Care Coordination ([facility] Stacey Hugoz telephone call outreach) 07/14/2024 Telephone [facility] [address] [place] [phone] Marisa Livingston MD Appointment Request 07/14/2024 Telephone [facility] [address] [place] [phone] Marisa Livingston MD Appointment Confirmation 07/14/2024 Telephone [facility] [address] [place] [phone] Marisa Livingston MD Care Management ([facility]- f/u call) 07/14/2024 Travel 07/09/2024 Telephone [facility] [address] [place] [phone] Marisa Livingston MD Chart prep 07/09/2024 Telephone [facility] [address] [place] [phone] Marisa Livingston MD Appointment Request 07/09/2024 Telephone [facility] [address] [place] [phone] Marisa Livingston MD Appointment Request 07/07/2024 Telephone [facility] [address] [place] [phone] Marisa Livingston MD Chart prep 07/02/2024 Telephone [facility] [address] [place] [phone] Marisa Livingston MD no show 07/01/2024 Telephone [facility] [address] [place] [address] Marisa Livingston MD Chart prep 06/30/2024 Telephone [facility] [address] [place] [address] Marisa Livingston MD Care Management (C3CM- initial [...] the past 12 months, has t he [employer], gas, oil or water company threatened to [...] Description 10/18/2024 3:30 PM EDT Clinical Support [facility] [address] [place] [address] [place] [address] 12/20/2024 9:00 AM EDT Office Visit [facility] [address] [place], [place] [phone] Marisa Livingston MD [address] [place] [address] Health Maintenance Due Date Last Done Comments [...] EDT Narrative 09/05/2024 1:46 PM EDT ? [facility] ?[address] ?[place] [address] ?XRay Report ? Signed ? Patient: Luis Cleo Sun Anette ?MR#: ?? [id number] ? : 1990 ?Acct:[id number] ? Age/Sex: 33 / F ?ADM Date: 09/05/24 ? Loc: HO.ED ? Attending Dr: ? Ordering Physician: Iqra Luke CNP ?? Date of Service: 09/05/24 ?? Procedure(s): XR wrist LT w scaphoid ?? Accession Number(s): [id number] ? cc: Iqra Luke CNP; Marisa Livingston [...] DD/ 1344 ? TD/TT: 09/05/24 1344 ? Carbon Dioxide Operator: ? 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 Donjudithinterpreter, Image - 09/05/[address] [address] XRay Report Signed Patient: Cleo Rock JMR#: [id number] : 1990Acct:[id number] Age/Sex: 33 / FADM Date: 09/05/24 Loc: HO.ED Attending Dr: Ordering Physician: Iqra Luke CNP Date of Service: 09/05/24 Procedure(s): XR wrist LT w scaphoid Accession Number(s): [id number] cc: Iqra Luke CNP; Marisa Livingston MD [...] 09/05/24 1345 DD/ 1344 TD/TT: 09/05/24 1344 Carbon Dioxide Operator: [facility] External Provider IMG XR PROCEDURES Final Result * XR Hand 1-2 Views Left (09/05/2024 1:44 PM EDT) Anatomical Region Laterality Modality Upper Extremities, Hand Left Radiogra phic Imaging 09/05/2024 1:44 PM EDT Narrative 09/05/2024 1:46 PM EDT ? [facility] ?[address] ?[place] [address] ?XRay Report ? Signed ? Patient: Cleo Rock J ?MR#: ?? [id number] ? : 1990 ?Acct:[id number] ? Age/Sex: 33 / F ?ADM Date: 09/05/24 ? Loc: HO.ED ? Attending Dr: ? Ordering Physician: Iqra Luke CNP ?? Date of Service: 09/05/24 ?? Procedure(s): XR hand LT 2V ?? Accession Number(s): [id number] ? cc: Iqra Luke CNP; Marisa Livingston [...] DD/ 1344 ? TD/TT: 09/05/24 1344 ? Carbon Dioxide Operator: ? 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 Armando, Stephania - 09/05/[address] [address] XRay Report Signed Patient: Cleo Rock JMR#: [id number] : 1990Acct:[id number] Age/Sex: 33 / FADM Date: 09/05/24 Loc: HO.ED Attending Dr: Ordering Physician: Iqra Luke CNP Date of Service: 09/05/24 Procedure(s): XR hand LT 2V Accession Number(s): [id number] cc: Iqra Luke CNP; Marisa Livingston MD [...] 09/05/24 1345 DD/ 1344 TD/TT: 09/05/24 1344 Carbon Dioxide Operator: [facility] External Provider IMG XR PROCEDURES Final Result * CT Cervical Spine w/o Contrast (07/30/2024 5:47 PM EDT) Anatomical Region Laterality Modality Spine, C-spine Computed Tomogra phy 07/30/2024 5:47 PM EDT Narrative 07/30/2024 5:49 PM EDT ? [facility] ?[address] ?[place] [address] ? CT Scan Report ? Signed ? Patient: Cleo Rock J ?MR#: ?? [id number] ? : 1990 ?Acct:[id number] ? Age/Sex: 33 / F ?ADM Date: 07/30/24 ? Loc: HO.ED ? Attending Dr: ? Ordering Physician: Amadou Mcmillan ?? Date of Service: 07/30/24 ?? Procedure(s): CT cervical spine wo IV con ?? Accession Number(s): [id number] ? cc: Amadou Mcmillan; Marisa Livingston MD ? Report Number: ?? [id number]: Total DLP = ??560.00 mGy-cm ? CLINICAL [...] DD/ 1747 ? TD/TT: 07/30/24 1747 ? Carbon Dioxide Operator: ? 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 Stephania Roberts - 07/30/[address] [address] [address] Scan Report Signed Patient: Smith DinoCleorosa MACHUCA#: [id number] : 1990Acct:[id number] Age/Sex: 33 / FADM Date: 07/30/24 Loc: HO.ED Attending Dr: Ordering Physician: Amadou Mcmillan Date of Service: 07/30/24 Procedure(s): CT cervical spine wo IV con Accession Number(s): [id number] cc: Amadou Mcmillan; Marisa Livingston MD Report Number: [id number]: Total DLP = 560.00 mGy-cm CLINICAL HISTORY: [...] in OV> 07/30/241747 DD/ 46 TD/TT: 07/30/241746 Carbon Dioxide Operator: [facility] External Provider IMG CT PROCEDURES Final Result * High Sensitivity Troponin I (07/30/2024 4:20 PM EDT) Pathologist [facility] TROPONIN I HIGH SENSITIVITY <2.7 <3.5 - 17.0 ng/L [facility] Comment:The Ruelas high sens itivity Troponin-I results should beused in conjunction with other diagnostic information suchas ECG, clinical observations and information, and patientsymptoms to aid in the diagnosis of [place]. 07/30/2024 4:20 PM EDT 07/30/2024 4:28 PM EDT Generic External Data Provider LAB BLOOD ORDERAB LES Final Result [facility] [address] [place] [phone] * (ABNORMAL) CBC auto differential (07/30/2024 4:20 PM EDT) White Blood Count 5.7 4.8 - 10.8 X10*3/uL [facility] Red Blood Count 4.59 4.20 - 5.50 X10*6/uL [facility] Hemoglobin 9.0(L) 12.0 - 16.0 g/dl [facility] Hematocrit 30.3(L) 37.0 - 47.0 % [facility] Mean Corpuscular Volume 66.0(L) 80.0 - 98.0 fL [facility] Mean Corpuscular Hemoglobin 19.6(L) 27.0 - 33.0 pg [facility] Mean Corpuscular HGB Conc 29.7(L) 31.0 - 35.0 g/dl [facility] Red Cell Distribution Width 18.0(H) 11.0 - 16.0 % [facility] Platelet Count 343 160 - 400 X10*3/uL [facility] Mean Platelet Volume 9.3(L) 9.4 - 12.3 fL [facility] Neutrophils Percent Auto 61.8 45 - 73 % [facility] Imm Gran Pct Auto 0.7(H) 0.0 - 0.4 % [facility] Lymphocytes Percent Auto 23.4 20 - 40 % [facility] Monocytes Percent Auto 7.7 2 - 11 % [facility] Eosinophils Percent Auto 5.9(H) 0 - 4 % [facility] Basophils Percent Auto 0.5 0 - 2 % [facility] NRBC Pct Auto 0.0 0.0 - 0.2 /100WBC [facility] Neutrophils Absolute Auto 3.5 2.0 - 8.3 x10*3/uL [facility] Imm Gran Abs Auto 0.04(H) 0.00 - 0.03 X10*3/uL [facility] Lymphocytes Absolute Auto 1.3 1.2 - 4.9 X10*3/uL [facility] Monocytes Absolute Auto 0.4 0.1 - 1.2 X10*3/uL [facility] Eosinophils Absolute Auto 0.3 0.0 - 0.4 X10*3/uL [facility] Basophils Absolute Auto 0.0 0.0 - 0.2 X10*3/uL [facility] NRBC Abs Auto 0.000 0.0 - 0.012 X10*3/uL [facility] 07/30/2024 4:20 PM EDT 07/30/2024 4:28 PM EDT Generic External Data Provider LAB BLOOD ORDERAB LES Final Result Performing Organization Address [facility]/ZIP Co de Phone Number [facility] [address] [place] [phone] * Partial Thromboplastin Time, Activated (APTT) (07/30/2024 4:20 PM EDT) Partial Thromboplastin Time 28.9 26.0 - 36.8 SEC [facility] Comment:For information rega rding the monitoring of direct thrombininhibitors, please refer to Pharmacy. 07/30/2024 4:20 PM EDT 07/30/2024 4:28 PM EDT Generic External Data Provider LAB BLOOD ORDERAB LES Final Result Performing Organization Address [facility]/ZIP Co de Phone Number [facility] [address] [place] [phone] * Prothrombin Time-INR (07/30/2024 4:20 PM EDT) Prothrombin Time 12.1 10.9 - 12.4 SEC [facility] INTERNATIONAL NORM RATIO 1.0 0.9 - 1.1 [facility] Comment:INTERNATIONAL NORMAL IZED RATIO (INR) [...] Provider LAB BLOOD ORDERAB LES Final Result [facility] [address] [place] [address] [phone] * (ABNORMAL) Comprehensive Metabolic Panel (07/30/2024 4:20 PM EDT) Sodium 142 135 - 145 mmol/L [facility] Potassium 4.0 3.3 - 5.1 mmol/L [facility] Chloride 109(H) 96 - 108 mmol/L [facility] Carbon Dioxide 27 22 - 29 mmol/L [facility] Anion Gap 10(L) 12 - 20 [facility] Urea Nitrogen (BUN) 7(L) 9 - 16 mg/dL [facility] Creatinine, Serum 0.58 0.5 - 1.4 mg/dL [facility] Creatinine Clr Calc Pharmacy 145.0 [facility] Comment:Provided height and weight: 162.56 cm,87.6 kg.eGFR (calculated from the MDRD study equation) and eCrCl(calculated from the Cockcroft-Gault equation) are based ondifferent parameters and may not yield comparable results.If eCrCl result is absurd, please check patient'sheight/weight. Estimated Glomerular Filt Rate >60 [facility] Comment:Chronic Kidney Disea se: Estimated GFR < 60 mL/min/1.49l9Mixzcd Kidney Disease: Estimated GFR < 15 mL/min/1.73m2 Glucose 92 60 - 115 mg/dL [facility] Calcium 9.8 8.4 - 10.2 mg/dL [facility] Bilirubin, Total 0.5 0.0 - 1.0 mg/dL [facility] Aspartate Amino Transferase 20 5 - 31 U/L [facility] Alanine Aminotransferase 23 0 - 31 U/L [facility] Total Protein 8.4(H) 6.5 - 8.0 g/dL [facility] Albumin Level 4.5 3.5 - 5.0 g/dL [facility] Alkaline Phosphatase 77 39 - 117 U/L [facility] 07/30/2024 4:20 PM EDT 07/30/2024 4:28 PM EDT us Generic External Data Provider LAB BLOOD ORDERAB LES Final Result [facility] [address] [facility] [place] [address] [phone] * CT Head w/o Contrast (07/30/2024 11:39 AM EDT) Anatomical Region Laterality Modality Head, Neck Computed Tomogra phy 07/30/2024 11:3 9 AM EDT Narrative 07/30/2024 12:13 PM EDT ? [facility] ?[address] ?[place] [address] ? CT Scan Report ? Signed ? Patient: Cleo Rock ?MR#: ?? [id number] ? : 1990 ?Acct:[id number] ? Age/Sex: 33 / F ?ADM Date: 07/30/24 ? Loc: HO.ED ? Attending Dr: ? Ordering Physician: Caitie Wilkerson NP ?? Date of Service: 07/30/24 ?? Procedure(s): CT head/brain wo IV con ?? Accession Number(s): [id number] ? cc: Marisa Livingston MD; Caitie Wilkerson NP ? Report Number: ?? [id number]: Total DLP = ??706.00 mGy-cm ?? EXAMINATION: [...] DD/ 1139 ? TD/TT: 07/30/24 1153 ? Carbon Dioxide Operator: ? 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 Stephania Roberts - 07/30/[address] [place] [address] [address] Scan Report Signed Patient: Cleo Rock R#: [id number] : 1990Acct:[id number] Age/Sex: 33 / FADM Date: 07/30/24 Loc: HO.ED Attending Dr: Ordering Physician: Caitie Wilkerson NP Date of Service: 07/30/24 Procedure(s): CT head/brain wo IV con Accession Number(s): [id number] cc: Marisa Livingston MD; Caitie Wilkerson NP Report Number: [id number]: Total DLP = 706.00 mGy-cm EXAMINATION: CT [...] 07/30/24 1200 DD/ 1139 TD/TT: 07/30/24 1153 Carbon Dioxide Operator: [facility] External Provider IMG CT PROCEDURES Final Result * XR Chest 2 Views (07/30/2024 11:28 AM EDT) Anatomical Region Laterality Modality Chest Radiographic Angelita ging 07/30/2024 11:2 8 AM EDT Narrative 07/30/2024 12:13 PM EDT ? [facility] ?[address] ?[place] [address] ?XRay Report ? Signed ? Patient: Smith Dino,Cleo J ?MR#: ?? [id number] ? : 1990 ?Acct:[id number] ? Age/Sex: 33 / F ?ADM Date: 03/14/25 ? Loc: HO.ED ? Attending Dr: ? Ordering Physician: Caitie Wilkerson NP ?? Date of Service: 07/30/24 ?? Procedure(s): XR chest 2V ?? Accession Number(s): [id number] ? cc: Marisa Livingston MD; Caitie Wilkerson [...] DD/ 1128 ? TD/TT: 07/30/24 1138 ? Carbon Dioxide Operator: ? 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 Donstephyter, Image - 07/30/[address] [address] XRay Report Signed Patient: Cleo Rock JMR#: [id number] : 1990Acct:[id number] Age/Sex: 33 / FADM Date: 07/30/24 Loc: HO.ED Attending Dr: Ordering Physician: Caitie Wilkerson NP Date of Service: 07/30/24 Procedure(s): XR chest 2V Accession Number(s): [id number] cc: Marisa Livingston MD; Caitie Wilkerson NP [...] 07/30/24 1148 DD/ 1128 TD/TT: 07/30/24 1138 Carbon Dioxide Operator: [facility] External Provider IMG XR PROCEDURES Final Result * T-SPOT??.TB (07/22/2024 10:48 AM EST) [facility] T Spot TB Negative Negative [facility] Comment:A negative test resu lt [...] as aquantitative test. TS PANEL A 0 [facility] TS PANEL B 1 [facility] Negative Control Passed [facility] Positive Control Passed [facility] Comment:For additional infor belia, please refer tohttp://education.Undertone/faq/QSY577(This link is being provided for informational/educational purposes only.)THIS TEST WAS PERFORMED AT:[email or web address] [place] [address]OFWTAAYKHUSHI SHAY MD,PHD 07/22/2024 10:4 8 AM EST 07/22/2024 11:51 AM EST us Marisa Livingston MD LAB BLOOD ORDERABLES Fin al Result Performing Organization Address [facility]/ZIP Co de Phone Number [facility] [address] [place], [place] [phone] * (ABNORMAL) Basic Metabolic Panel (07/22/2024 10:48 AM EST) Sodium 139 135 - 145 mmol/L [facility] Potassium 3.8 3.3 - 5.1 mmol/L [facility] Chloride 109(H) 96 - 108 mmol/L [facility] Carbon Dioxide 25 22 - 29 mmol/L [facility] Anion Gap 9(L) 12 - 20 [facility] Urea Nitrogen (BUN) 8(L) 9 - 16 mg/dL [facility] Creatinine, Serum 0.58 0.5 - 1.4 mg/dL [facility] Estimated Glomerular Filt Rate >60 [facility] Comment:Chronic Kidney Disea se: Estimated GFR < 60 mL/min/1.41f6Tiygcx Kidney Disease: Estimated GFR < 15 mL/min/1.73m2 Glucose 91 60 - 115 mg/dL [facility] Calcium 9.5 8.4 - 10.2 mg/dL [facility] Blood Venous blood specimen / Unknown 07/22/2024 10:48 AM EST 07/22/2024 11:51 AM EST us Marisa Livingston MD LAB BLOOD ORDERABLES Fin al Result Performing Organization Address City/[facility]/ZIP Co de Phone Number [facility] [address] [place] [address] [phone] * Pap Smear (08/05/2023 3:15 PM EDT) 08/05/2023 3:15 PM EDT 08/07/2023 1:00 PM EDT Sophie [facility] - 08/18/2023 1:17 PM EDT ----- ------- Name: Cleo Rock ? Age/Sex: 32/F ? : 1990 Unit#: [id number] ?? Attend Dr: Amaris Salgado CNM ?Re08/05/23 ?Status: DEP REF ? Location: HO.LNP ?Disch: ? ----- ------- SPEC : [id number] ? RECD: 08/07/23-1300 ? STATUS: ??SOUT ? REQ NUM: [id number] ? MEAGAN: 08/05/23-1515 ? SUBM DR: Amaris [...] 66, 68) ?? HPV testing performed by [employer], [place], [place]. ??See reference laboratory ?? portion of the EMR for entire report. ?Clinical Information LMP: 07/17/23 Previous PAP test: 09/17/17, WNL ? Material Received ?? ThinPrep-Cervical Copies To: ?? Marisa Livingston MD ?? [address] [facility] ?? [place] [address] ? Amaris Salgado CNM ?? [address] [place] [address] Dr. Oliver [facility] ?? [place] [address] ?? [phone] ----- ------- Signed (signature on file) IDANIA Hutchinson ([facility]) 08/18/23 1317 ? ----- ------- ? END OF REPORT ? us Generic External Data Provider LAB CYTOLOGY GILBERT UGARTE Final Result [facility] [address] [place] [phone] * HIV Ab/Ag ([facility]) (12/09/2022 1:30 PM EDT) [facility] HIV AB/AG Nonreactive Nonreactive [facility] Comment:HIV-1 p24 Ag and/or HIV-1/HIV-2 Ab not detected.A test result that is nonreactive does not exclude thepossibility of exposure to or infection with HIV-1 and/orHIV-2. Nonreactive results in this assay for individualswith prior exposure to HIV-1 and/or HIV-2 may be due toantigen and antibody levels that are below the limit ofdetection of this assay.The [facility] HIV Ag/Ab Combo assay result andsupplemental assay results should be interpreted inconjunction with the patient's clinical presentation,history and other laboratory results. If the results areinconsistent with clinical evidence, additional testing issuggested to confirm the result. 12/09/2022 1:30 PM EDT 12/09/2022 4:12 PM EDT us Marisa Livingston MD LAB BLOOD ORDERABLES Fin al Result Performing Organization Address [facility] Co de Phone Number [facility] [address] [place] [address] [phone] * Lipid Panel, Standard (12/09/2022 1:30 PM EDT) Triglycerides 56 mg/dL [facility] Comment:Desirable Triglyceri de: less than 150 mg/dLBorderline High Triglyceride 150-199 mg/dLHigh Triglyceride: 200-499 mg/dLVery High Triglyceride: greater than or equal to 5OO mg/dL Cholesterol 114 mg/dL [facility] Comment:Desirable Cholestero l: less than 200 mg/dLBorderline High Cholesterol: 200-239 mg/dLHigh Cholesterol: greater than 239 mg/dL LDL Cholesterol Calculated 65 mg/dl [facility] Comment:Desirable LDL: less than 100 mg/dLNear Optimal/Above Optimal LDL: 110- 129 mg/dLBorderline High LDL: 130-159 mg/dLHigh LDL: 160-189 mg/dLVery High LDL: greater than or equal to 190 mg/dL HDL Cholesterol 38 mg/dL [facility] Comment:Desirable HDL: great er than 40 mg/dL Note: This HDL assay may give artificially low results in patients with liver disease. 12/09/2022 1:30 PM EDT 12/09/2022 4:12 PM EDT us Marisa Livingston MD LAB BLOOD ORDERABLES Fin al Result Performing Organization Address [facility]/ZIP Co de Phone Number [facility] [address] [place] [address] [phone] from Last 3 Months or Most Recently Relevant to Health Maintenance Insurance [facility] C3 D[facility]AL-[facility] MEDICAID STAND ADULT Care Teams Wine Steward Relationship Specialty Start Date End Date Marisa Livingston MD [address] [place] [address] PCP - General Family Medicine 03/12/19 Perez Vergara RN [address] [place] [address] Instantizer OperatorProduct Tester Fiberglass 06/30/24
--- OUTSIDE RECORDS SUMMARY | 2024-09-27 14:06 | XMS_ITS | Encounter Summary ---
Author Organization [employer] [facility] Address [address] [place] [address] [place], [place] [address] Care Team Providers Care Supervisor Cigar Making Machine Name Role Phone Marisa Livingston MD Primary Care Provider + Perez Vergara RN Unavailable [phone] Encounter Details Date Type Department Care Team (Latest Contact Info) Description 03/26/2019 Abstract [facility] CONVERSIONS Dental, Provider, DDS Social [...] 3:30 PM EDT Clinical Support [facility] DIABETES/NUTRITION [address] [place] [address] [place], [place] [phone] 12/20/2024 9:00 AM EDT Office Visit [facility] MEDICINE [address] [place] [address] [phone] Marisa Livingston MD 230 [place], [place] [phone] documented as of this encounter Visit Diagnoses Not on filedocumented in this encounter Care Teams Supervisor Cigar Making Machine Relationship Specialty Start Date End Date Marisa Livingston MD 230 [place] [address] PCP - General Family Medicine 03/12/19 Perez Vergara, CHAPITO [address] [place] [address] Automation Test DeveloperPaper Bundler 06/30/24 documented as of this encounter
--- OUTSIDE RECORDS SUMMARY | 2024-09-27 14:06 | XMS_ITS | Encounter Summary ---
Author Organization [employer] Address 75 [facility] 7t [place] [address] Care Team Providers Care Salesperson Shoes Name Role Phone Marisa Livingston MD Primary Care Provider + Perez Vergara RN Unavailable [phone] Reason for Visit * Reason Onset Date Comments Appointment 07/12/2022 Encounter Details Date Type Department Care Team (Late st Contact Info) Description 07/12/2022 Telephone [facility] ADULT DENTAL [address] [place] [address] Yeison Arnold, DMD [address] [place] [address] Appointment Social History Tobacco Use Types Packs/Day [...] 3:30 PM EDT Clinical Support [facility] DIABETES/NUTRITION [address] [place] [address] [place] [address] 12/20/2024 9:00 AM EDT Office Visit [facility] MEDICINE [address] [place] [address] Marisa Livingston MD 230 [place] [address] documented as of this encounter Visit Diagnoses Not on filedocumented in this encounter Additional Health Concerns Assessment Noted Time PHQ-9 Depression Total Score: 4 07/03/19 23 10:39 AM EST documented as of this encounter Care Teams Salesperson Shoes Relationship Specialty Start Date End Date Marisa Livingston MD [address] [place] [address] PCP - General Family Medicine 03/12/19 Perez Vergara RN [address] [place] [address] Tissue PackerPipe Coverer Helper 06/30/24 documented as of this encounter
--- OUTSIDE RECORDS SUMMARY | 2024-09-27 14:06 | XMS_ITS | Encounter Summary ---
Author Organization [employer] Address 75 [facility] 7 [place] [address] Care Team Providers Care Speech Scientist Name Role Phone Marisa Livingston MD Primary Care Provider + Perez Vergara RN Unavailable [phone] Reason for Visit * Reason Comments Care Coordination Encounter Details Date Type Department Care Team ([facility] st Contact Info) Description 09/23/2024 Patient Outreach [facility] MEDICINE 230 [place] [address] Marisa Livingston MD 230 [place], [place] [phone] Care Coordination Social History Tobacco Use Types [...] Description 10/18/2024 3:30 PM EDT Clinical Support [facility] DIABETES/NUTRITION [address] [place] [address] [place] [address] 12/20/2024 9:00 AM EDT Office Visit [facility] MEDICINE 230 [place], [place] [phone] Marisa Livingston MD 230 [place] [address] documented as of this encounter Visit Diagnoses Not on filedocumented in this encounter Additional Health Concerns Assessment Noted Time PHQ-9 Depression Total Score: 17 025 9:47 AM EST documented as of this encounter Care Teams Speech Scientist Relationship Specialty Start Date End Date Marisa Livingston MD 230 [place] [address] PCP - General Family Medicine 03/12/19 Perez Vergara RN 505 [place] [address] Picker Box OperatorFilm Painter 06/30/24 documented as of this encounter
--- OUTSIDE RECORDS SUMMARY | 2024-09-27 14:06 | XMS_ITS | Encounter Summary ---
Author Organization [employer] Address [address] [place] [address] 7t [place] [address] Care Team Providers Care Machine Washer Name Role Phone Marisa Livingston MD Primary Care Provider + Perez Vergara RN Unavailable Encounter Details Date Type Department Care Team (Late st Contact Info) Description 07/19/2022 Abstract [facility] ADULT DENTAL [address] [place] [address] Berlin Hagen, DMD [address] [place] [address] Social History Tobacco Use Types Packs/Day Years [...] Description 10/18/2024 3:30 PM EDT Clinical Support [facility] DIABETES/NUTRITION [address] [place], [place] [phone] Mandi P[address] [place] [address] 12/20/2024 9:00 AM EDT Office Visit [facility] MEDICINE [address] [place], [place] [phone] Marisa Livingston MD 230 [place] [address] documented as of this encounter Visit Diagnoses Not on filedocumented in this encounter Additional Health Concerns Assessment Noted Time PHQ-9 Depression Total Score: 4 07/03/19 23 10:39 AM EST documented as of this encounter Care Teams Machine Washer Relationship Specialty Start Date End Date Marisa Livingston MD 230 [place] [address] PCP - General Family Medicine 03/12/19 Perez Vergara RN [address] [place] [address] Blowing WeasandSecretary Of Police 06/30/24 documented as of this encounter
--- OUTSIDE RECORDS SUMMARY | 2024-09-27 14:06 | XMS_ITS | Encounter Summary ---
Author Organization [employer] Address 75 [facility] 7t [place] [address] Care Team Providers Care Workforce Specialist Name Role Phone Marisa Livingston MD Primary Care Provider + Perez Vergara RN Unavailable [phone] Reason for Visit * Reason Comments Med Refill Encounter Details Date Type Department Care Team ([facility] st Contact Info) Description 05/27/2024 Refill [facility] MEDICINE 230 [place] [address] Marisa Livingston MD 230 [place] [address] Social History Tobacco Use Types Packs/Day Years [...] Description 10/18/2024 3:30 PM EDT Clinical Support [facility] DIABETES/NUTRITION [address] [place] [address] [place] [address] 12/20/2024 9:00 AM EDT Office Visit [facility] MEDICINE [address] [place] [address] Marisa Livingston MD [address] [place] [address] documented as of this encounter Visit Diagnoses Not on filedocumented in this encounter Additional Health Concerns Assessment Noted Time PHQ-9 Depression Total Score: 17 024 9:31 AM EST documented as of this encounter Care Teams Workforce Specialist Relationship Specialty Start Date End Date Marsia Livingston MD 230 [place] [address] PCP - General Family Medicine 03/12/19 Perez Vergara RN [address] [place] [address] Bulk Station OperatorPaint Stock Clerk 06/30/24 documented as of this encounter
--- OUTSIDE RECORDS SUMMARY | 2024-09-27 14:06 | XMS_ITS | Encounter Summary ---
Author Organization [employer] Address 75 [facility] 7 [place] [address] Care Team Providers Care Lesson Instructor Name Role Phone Marisa Livingston MD Primary Care Provider + Perez Vergara RN Unavailable [phone] Reason for Visit * Reason Onset Date Comments Chart Prep 09/22/2024 Encounter Details Date Type Department Care Team (Late st Contact Info) Description 09/22/2024 Telephone [facility] MEDICINE 230 [place] [address] Marisa Livingston MD 230 [place], [place] [phone] Chart Prep Social History Tobacco Use Types [...] done Images: done Referrals: appointment pending [facility] MASH FILTER CLOTH CHANGER Vaccines due: Covid, Flu, and Hep B Screenings: Hepatitis C Screening Overdue care gaps: SBIRT, SALENA-7, and Disability screen documented in this encounter Plan of Treatment Upcoming Encounters Date Type Department Care Team (Late st Contact Info) Description 10/18/2024 3:30 PM EDT Clinical Support [facility] DIABETES/NUTRITION [address] [place] [phone] [place], [place] [phone] 12/20/2024 9:00 AM EDT Office Visit [facility] MEDICINE [address] [place] [address] [phone] Marisa Livingston MD [address] [place], [place] [phone] documented as of this encounter Visit Diagnoses Not on filedocumented in this encounter Additional Health Concerns Assessment Noted Time PHQ-9 Depression Total Score: 17 025 9:47 AM EST documented as of this encounter Care Teams Lesson Instructor Relationship Specialty Start Date End Date Marisa Livingston MD [address] [place] [address] PCP - General Family Medicine 03/12/19 Perez Vergara RN [address] [place] [address] Trombone Slide AssemblerBun Icer 06/30/24 documented as of this encounter
--- OUTSIDE RECORDS SUMMARY | 2024-09-27 14:06 | XMS_ITS | Encounter Summary ---
Author Organization [employer] Address 75 [facility] 7 [place] [address] Care Team Providers Care Engineering Program Manager Name Role Phone Marisa Livingston MD Primary Care Provider + Perez Vergara RN Unavailable [phone] Reason for Visit * Reason Comments Care Coordination Appt reminder Encounter Details Date Type Department Care Team (Latest Contact Info) Description 09/24/2024 Patient Outreach [facility] MEDICINE [address] [place] [address] Marisa Livingston MD 230 [place] [address] Care Coordination (Appt reminder) Social History Tobacco [...] remind of appt for 09/27/24 at 1:00pm [facility] Cardiology, patient is aware and has no barriers in attending. documented in this encounter Plan of Treatment Upcoming Encounters Date Type Department Care Team (Late st Contact Info) Description 10/18/2024 3:30 PM EDT Clinical Support [facility] DIABETES/NUTRITION [address] [place] [address] [place] [address] 12/20/2024 9:00 AM EDT Office Visit [facility] MEDICINE 230 [place], [place] [phone] Marisa Livingston MD [address] [place] [address] documented as of this encounter Visit Diagnoses Not on filedocumented in this encounter Additional Health Concerns Assessment Noted Time PHQ-9 Depression Total Score: 17 025 9:47 AM EST documented as of this encounter Care Teams Engineering Program Manager Relationship Specialty Start Date End Date Marisa Livingston MD 230 [place] [address] PCP - General Family Medicine 03/12/19 Perez Vergara RN [address] [place] [address] Senior Fund AccountantAdjunct Spanish Instructor 06/30/24 documented as of this encounter
--- OUTSIDE RECORDS SUMMARY | 2024-09-27 14:06 | XMS_ITS | Encounter Summary ---
Author Organization [employer] Address [address] [place] [address] 7[place], [place] [address] Care Team Providers Care Search Coordinator Name Role Phone Marisa Livingston MD Primary Care Provider + Perez Vergara RN Unavailable [phone] Encounter Details Date Type Department Care Team (Late Contact Info) Description 06/27/2022 Abstract [facility] ADULT DENTAL [address] [place] [address] Jeramie Treadwell DDS [address] [place], [place] [phone] Social History Tobacco Use Types Packs/Day Years [...] Description 10/18/2024 3:30 PM EDT Clinical Support [facility] DIABETES/NUTRITION [address] [place] [address] [place] [address] 12/20/2024 9:00 AM EDT Office Visit [facility] MEDICINE [address] [place] [address] Marisa Livingston MD 230 [place] [address] documented as of this encounter Visit Diagnoses Not on filedocumented in this encounter Care Teams Search Coordinator Relationship Specialty Start Date End Date Marisa Livingston MD [address] [place], [place] [phone] PCP - General Family Medicine 03/12/19 Perez Vergara, CHAPITO [address] [place] [address] Elastic AssemblerChief Deputy Coroner 06/30/24 documented as of this encounter
--- OUTSIDE RECORDS SUMMARY | 2024-09-27 14:06 | XMS_ITS | Encounter Summary ---
Author Organization [employer] Address 75 [facility] 7 [place] [address] Care Team Providers Care Rouge Sifter Name Role Phone Marisa Livingston MD Primary Care Provider + Perez Vergara RN Unavailable [phone] Reason for Visit * Reason Comments Med Refill Encounter Details Date Type Department Care Team ([facility] st Contact Info) Description 09/25/2024 Refill [facility] MEDICINE 230 [place] [address] Marisa Livingston MD 230 [place] [address] Social History Tobacco Use Types Packs/Day Years [...] Description 10/18/2024 3:30 PM EDT Clinical Support [facility] DIABETES/NUTRITION [address] [place] [address] [place] [address] 12/20/2024 9:00 AM EDT Office Visit [facility] MEDICINE [address] [place] [address] Marisa Livingston MD [address] [place] [address] documented as of this encounter Visit Diagnoses Not on filedocumented in this encounter Additional Health Concerns Assessment Noted Time PHQ-9 Depression Total Score: 17 025 9:47 AM EST documented as of this encounter Care Teams Rouge Sifter Relationship Specialty Start Date End Date Marisa Livingston MD [address] [place] [address] [phone] PCP - General Family Medicine 03/12/19 Perez Vergara RN [address] [place] [address] [place] [address] Ball Truing Machine OperatorHeavy Truck Technician 06/30/24 documented as of this encounter
--- OUTSIDE RECORDS SUMMARY | 2024-09-27 14:06 | XMS_ITS | Encounter Summary ---
Author Organization [employer] Address 75 [facility] 7 [place] [address] Care Team Providers Care Interlocking Tower Operator Name Role Phone Marisa Livingston MD Primary Care Provider + Perez Vergara RN Unavailable [phone] Reason for Visit * Reason Onset Date Comments Appointment Request 07/09/2024 Encounter Details Date Type Department Care Team ([facility] st Contact Info) Description 07/09/2024 Telephone [facility] MEDICINE 230 [place] [address] Marisa Livingston MD 230 [place], [place] [phone] Appointment Request Social History Tobacco Use Types [...] to reschedule appt with pcp. Contact pt, kazakh documented in this encounter Plan of Treatment Upcoming Encounters Date Type Department Care Team (Late st Contact Info) Description 10/18/2024 3:30 PM EDT Clinical Support [facility] DIABETES/NUTRITION [address] [place] [phone] [place], [place] [phone] 12/20/2024 9:00 AM EDT Office Visit [facility] MEDICINE 230 [place], [place] [phone] Marisa Livingston MD [address] [place], [place] [phone] documented as of this encounter Visit Diagnoses Not on filedocumented in this encounter Additional Health Concerns Assessment Noted Time PHQ-9 Depression Total Score: 17 024 9:31 AM EST documented as of this encounter Care Teams Interlocking Tower Operator Relationship Specialty Start Date End Date Marisa Livingston MD [address] [place] [address] PCP - General Family Medicine 03/12/19 Perez Vergara RN [address] [place] [address] Wharf WorkerCard Grader 06/30/24 documented as of this encounter
--- OUTSIDE RECORDS SUMMARY | 2024-09-27 14:06 | XMS_ITS | Encounter Summary ---
Author Organization [employer] Address [address] [place] [address] [place] [address] Care Team Providers Care Model Maker Apprentice Name Role Phone Marisa Livingston MD Primary Care Provider + Perez Vergara RN Unavailable [phone] Reason for Referral * Consultation (Routine) - Authorized Specialty Diagnoses / Procedures Referred By Nadya us Referred To Contact Optometry Diagnoses Encounter for complete eye exam Marisa Livingston MD [address] [place] [address] Phone: tel: fax: [facility] OPTOMETRY [address] [place] [address] Phone: tel: fax: Referral ID Status Reason Start Date Expiration Date Visits Requested Visits Authorized [id number] Authorized Consult and Treat 09/23/2024 09/23/2025 1 1 Reason for Visit * Reason Comments Annual Exam Encounter Details Date Type Department Care Team (Late st Contact Info) Description 09/23/2024 10:45 AM EDT Office Visit [facility] MEDICINE [address] [place] [address] Marisa Livingston MD [address] [place] [address] Class 1 obesity due to excess calories [...] PE. 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 Follow- up with COMPRESSION MOLDING MACHINE TENDER Advised to continue p.o. iron as tolerated and follow-up with hematology as well She will follow-up with COMPRESSION MOLDING MACHINE TENDER regarding desire for after all medical conditions [...] for cough. ergocalciferol (Vitamin D2) 1.25 MG (27895 UT) capsule TAKE 1 CAPSULE(1.25 MG) BY [...] are more regular now. Follow- up with COMPRESSION MOLDING MACHINE TENDER Advised to continue p.o. iron as tolerated and follow-up with hematology as well She will follow-up with COMPRESSION MOLDING MACHINE TENDER regarding desire for after all medical conditions [...] Advair and DuoNeb as needed, follow-up with parts representative CARO for Sam still pending Will consider allergy testing after next pulmonology visit Advised regarding flu and COVID vaccinations in the fall documented in this encounter Plan of Treatment Upcoming Encounters Date Type Department Care Team (Late st Contact Info) Description 10/18/2024 3:30 PM EDT Clinical Support [facility] DIABETES/NUTRITION [address] [place] [phone] 230 [place], [place] [phone] 12/20/2024 9:00 AM EDT Office Visit [facility] MEDICINE [address] [place] [address] [phone] Marisa Livingston MD 230 [place], [place] [phone] Scheduled Referrals Name Type Priority Associated Diagnoses [...] documented as of this encounter Care Teams Model Maker Apprentice Relationship Specialty Start Date End Date Marisa Livingston MD [address] [place] [address] PCP - General Family Medicine 03/12/19 Perez Vergara RN [address] [place] [address] Environmental Technical OfficerStudent Support Counselor 06/30/24 documented as of this encounter
--- OUTSIDE RECORDS SUMMARY | 2024-09-27 14:06 | XMS_ITS | Encounter Summary ---
Author Organization [employer] Address [address] [place] [address] [address] [address] Care Team Providers Care Air Quality Technician Name Role Phone Marisa Livingston MD Primary Care Provider + Perez Vergara RN Unavailable [phone] Encounter Details Date Type Department Care Team (Latest Contact Info) Description 02/27/2022 Abstract [facility] CONVERSIONS Dental, Provider, DDS Social History Tobacco [...] [facility] DIABETES/NUTRITION [address] [place] [address] [place] [address] 12/20/2024 9:00 AM EDT Office Visit [facility] MEDICINE [address] [place] [address] Marisa Livingston MD [address] [place], [place] [phone] documented as of this encounter Visit Diagnoses Not on filedocumented in this encounter Care Teams Air Quality Technician Relationship Specialty Start Date End Date Marisa Liivngston MD [address] [place] [address] PCP - General Family Medicine 03/12/19 Perez Vergara RN [address] [place] [address] Regulatory ManagerMedical Anthropologist 06/30/24 documented as of this encounter
--- OUTSIDE RECORDS SUMMARY | 2024-09-27 14:06 | XMS_ITS | Encounter Summary ---
Author Organization [employer] Address [address] 7t [place] [address] Care Team Providers Care Anatomy Professor Name Role Phone Marisa Livingston MD Primary Care Provider + Perez Vergara RN Unavailable [phone] Encounter Details Date Type Department Care [...] Description 10/18/2024 3:30 PM EDT Clinical Support [facility] DIABETES/NUTRITION [address] [place] [address] [place] [address] 12/20/2024 9:00 AM EDT Office Visit [facility] MEDICINE [address] [place] [address] Marisa Livingston MD [address] [place] [address] documented as of this encounter Visit Diagnoses Not on filedocumented in this encounter Additional Health Concerns Assessment Noted Time PHQ-9 Depression Total Score: 17 025 9:47 AM EST documented as of this encounter Care Teams Anatomy Professor Relationship Specialty Start Date End Date Marisa Livingston MD [address] [place] [address] PCP - General Family Medicine 03/12/19 Perez Vergara RN [address] [place] [address] Triage Registered NurseBusiness Process Representative 06/30/24 documented as of this encounter
[2024-09-27 14:40] LABS: Anion Gap 11 (12-20); Blood Urea Nitrogen 8 mg/dL (9-16); Calcium 9.2 mg/dL (8.4-10.2); Carbon Dioxide 26 mmol/L (22-29); Chloride 109 mmol/L (96-108); Estimated Glomerular Filt Rate > 60; Glucose Random 94 mg/dL (60-115); Potassium 4.3 mmol/L (3.3-5.1); Sodium 142 mmol/L (135-145)
[2024-09-27 14:44] LABS: B Type Natriuretic Peptide 10 pg/mL (<100)
== END 2024-09-27 12:21 | disposition home or self-care (01) ==
LOC: HO.LAB 12:20
PROVIDERS: PCP Internal Medicine; Visit Provider Internal Medicine Cardiovascular Disease
DX: I42.9 Cardiomyopathy, unspecified (principal)
CPT/HCPCS: 36415; 80048; 83880; 93005; 99202

== ENCOUNTER 2024-10-05 13:15 | Outpatient (AMB) | payer MEDICAID, SELFPAY ==
--- NOTE | 2024-10-05 13:18 | MHC.OFFVIS ---
Vital Signs 10/05/24 13:19 Height 5 ft 4 in Weight 192 lb BMI 33.0 BP 110/62 Blood Pressure Location Rt brachial Position Sitting Pulse 99 Pulse Source Pulse Oximeter Pulse Oximetry (%) 98 Oxygen Delivery Method Room Air Intake Visit Reasons: dyspnea/asthma Sewing Machine Operator Semiautomatic Required: Yes Sewing Machine Operator Semiautomatic Name: Mercedes Elise.L.Massimo Allergies latex Allergy (Verified 10/05/24 13:26) Rash HPI HPI dyspnea/asthma: Details: 33-year-old lady, nonsmoker, followed for underlying severe persistent asthma and environmental allergies. She has been using Advair and albuterol MDI with suboptimal control of her symptoms. She had 1 injection of Fasenra, but not continued with it after. Her diuretic regimen was discontinued by her primary care provider and now she has worsening lower extremity edema. Patient is also concerned for hantavirus exposure. [facility] Medical History Asthma Family History Daughter Cancer of brain Maternal Grandfather Colon cancer Paternal Grandfather Throat cancer Mother Heart problem Social History Household Members: Children Housing: House Alcohol intake: never Patient Tobacco Use Status: Former Tobacco user Current occupational status: employed Gender identity: Female Female Reproductive History Menstrual Age of Menarche: 5 Review of Systems Const Denies daytime sleepiness, Denies excessive sweating, Denies fatigue, Denies fever(s), Denies lethargy, Denies malaise, Denies night sweats, Denies snoring and Denies weight loss Eyes Denies blurry vision and Denies itchy eyes ENT Denies nasal congestion, Denies post nasal drip, Denies sinus pain, Denies sinus pressure and Denies other ( Thrush) Card Denies chest pain, Denies pedal edema, Denies dyspnea, Denies orthopnea and Denies paroxysmal nocturnal dyspnea Resp Denies cough, Denies hemoptysis, Denies excessive phlegm production, Denies dyspnea, Denies snoring and Denies wheezing GI Denies abdominal pain and Denies heartburn Musc Denies myalgias, Denies arthralgias and Denies joint swelling Skin/Breast Denies rash Neuro Denies memory loss and Denies seizure-like activity Psych Denies abnormal sleep pattern, Denies anxiety and Denies memory loss Endo Denies excessive sweating, Denies fatigue and Denies heat intolerance Rick/Lymph Denies easy bruising Aller/Immun Denies itchy eyes, Denies seasonal rhinorrhea and Denies wheezing Physical Exam Vital Signs: Last Vital Signs Pulse 99 10/05/24 13:19 BP 110/62 10/05/24 13:19 Pulse Ox 98 10/05/24 13:19 Oxygen Delivery Method Room Air 10/05/24 13:19 BMI result Body Mass Index 33.0 Const General: no acute distress and alert Nutritional Appearance: obese Orientation/consciousness: Other orientation findings ( oriented) HEENT Head: Yes atraumatic Eyes General: appearance normal, both eyes and all related structures Sclerae: sclerae normal EOM: EOMs intact bilaterally Neck Neck: Yes supple Lymphatic: no lymphadenopathy noted Resp Effort & Inspection: normal respiratory effort and no use of accessory muscles Auscultation: clear to auscultation bilaterally Cardio Rate: regular rate Rhythm: regular rhythm Heart sounds: no gallops, no murmurs and no rubs Skin General skin exam: other ( warm) Extrem General: No clubbing, No cyanosis and No edema Assessment & Plan Assessment & Plan (1) Severe persistent asthma: Code(s): J45.50 - Severe persistent asthma, uncomplicated Category: Medical Plan: Suboptimal control on Advair, duo nebs, and albuterol MDI, expect to improve on Fasenra. Patient concern for hantavirus exposure, will obtain serologies. (2) Environmental allergies: Code(s): Z91.09 - Other allergy status, other than to drugs and biological substances Category: Medical Plan: Expect to improve after restarting Fasenra. Orders: Orders Other Ref Test - [facility] R06.09 - Other forms of dyspnea Coding Level of Care Code Est Pt Level 4 (57906) Complex EM visit Add On G2211 Diagnoses Severe persistent asthma J45.50 Environmental allergies Z91.09
[2024-10-05 13:19] VITALS: BP 110/62; PULSE 99; O2SAT 98; BMI 33.0
--- OUTSIDE RECORDS SUMMARY | 2024-10-05 14:23 | XMS_ITS | Encounter Summary ---
Author Organization [employer] Address [address] [place] [address] 7 [place] [address] Care Team Providers Care Director Global Name Role Phone Marisa Livingston MD Primary Care Provider + Reason for Visit * Reason Onset Date Comments Prior Authorization 10/01/2024 PA: Cedric gonzales Encounter Details Date Type Department Care Team ([facility] st Contact Info) Description 10/01/2024 Telephone [facility] MEDICINE [address] [place] [address] Marisa Livingston MD [address] [place] [address] Prior Authorization ( PA: Familia) Social History Tobacco Use Types Packs/Day Years [...] your housing situation today? I have yenny frots 06/29/[address] you li [...] encounter Miscellaneous Notes * Telephone Encounter - Christine Gonzalez - 10/01/2024 2:03 PM EDT PA was sent to plan via Fax. Confirmation uploaded to Media * Telephone Encounter - Christine Gonzalez - 10/01/2024 2:03 PM EDT ----- Message from Nurse Perez Billings sent at 10/01/2024 9:57 AM EDT ----- Patient states she received a call from [facility] stating the Zepbound was not approved by her insurance. Per patient, informed that a PA request was sent to PCP's office. Patient requesting return call with status. Please contact patient at [phone]. Thank you! documented in this encounter Plan of Treatment Upcoming Encounters Date Type Department Care Team (Late st Contact Info) Description 10/18/2024 3:30 PM EDT Clinical Support [facility] DIABETES/NUTRITION [address] [place] [address] Mandi Pinedo, MEAGAN [address] [place] [address] 12/20/2024 9:00 AM EDT Office Visit [facility] MEDICINE [address] [place] [address] Marisa Livingston MD [address] [place], [place] [phone] documented as of this encounter Visit Diagnoses Not on filedocumented in this encounter Additional Health Concerns Assessment Noted Time PHQ-9 Depression Total Score: 17 025 9:47 AM EST documented as of this encounter Care Teams Director Global Relationship Specialty Start Date End Date Marisa Livingston MD [address] [place] [address] [phone] PCP - General Family Medicine 03/12/19 documented as of this encounter
--- OUTSIDE RECORDS SUMMARY | 2024-10-05 14:23 | XMS_ITS | Encounter Summary ---
Author Organization [employer] Address [address] [place] [address] [address] [place] [address] Care Team Providers Care Subsystems Engineer Name Role Phone Marisa Livingston MD Primary Care Provider + Perez Vergara RN Unavailable [phone] Reason for Referral * Consultation (Routine) - Closed Specialty Diagnoses / Procedures Referred By Contac t Referred To Contact Hematology and Oncology Diagnoses Chronic anemia Jaki Cruz MD [address] [place] [address] Phone: tel: fax: [address] Phone: tel: fax: Referral ID Status Reason Start Date Expiration Date V isits Requested Visits Authorized [id number] Closed Specialty Services Required 06/17/2024 06/17/2025 6 6 Encounter Details Date Type Department Care Team (Late st Contact Info) Description 06/17/2024 Orders Only [facility] [address] [place] [address] [phone] Jaki Cruz MD [address] [place] [address] [phone] Chronic anemia (Primary Dx) Social History Tobacco [...] t he electric, gas, oil or water [employer] threatened to shut off services in your [...] Description 10/18/2024 3:30 PM EDT Clinical Support [facility] DIABETES/NUTRITION [address] [place] [address] [place] [address] 12/20/2024 9:00 AM EDT Office Visit [facility] MEDICINE [address] [place] [address] Marisa Livingston MD [address] [place], [place] [phone] Pending Results Name Type Priority Associated Diagnoses [...] documented as of this encounter Care Teams Subsystems Engineer Relationship Specialty Start Date End Date Marisa Livingston MD [address] [place] [address] PCP - General Family Medicine 03/12/19 Perez Vergara RN [address] [place] [address] Mat GaugerPattern Cleaner 06/30/24 09/30/24 documented as of this encounter
--- OUTSIDE RECORDS SUMMARY | 2024-10-05 14:23 | XMS_ITS | Encounter Summary ---
Author Organization [employer] Address [address] [facility] 7t [place] [address] Care Team Providers Care Mud Analysis Supervisor Name Role Phone Marisa Livingston MD Primary Care Provider + Perez Vergara RN Unavailable [phone] Reason for Visit * Reason Comments Med Refill Encounter Details Date Type Department Care Team (Late st Contact Info) Description 03/04/2024 Refill [facility] MEDICINE [address] [place] [address] Marisa Livingston MD [address] [place] [address] Social History Tobacco Use Types Packs/Day Years [...] Description 10/18/2024 3:30 PM EDT Clinical Support [facility] DIABETES/NUTRITION [address] [place] [phone] [place] [address] 12/20/2024 9:00 AM EDT Office Visit [facility] MEDICINE [address] [place] [address] Marisa Livingston MD [address] [place] [address] documented as of this encounter Visit Diagnoses Not on filedocumented in this encounter Additional Health Concerns Assessment Noted Time PHQ-9 Depression Total Score: 17 024 9:31 AM EST documented as of this encounter Care Teams Mud Analysis Supervisor Relationship Specialty Start Date End Date Marisa Livingston MD [address] [place] [address] PCP - General Family Medicine 03/12/19 Perez Vergara RN [address] [place] [address] Dry Kiln LoaderCourse Developer 06/30/24 09/30/24 documented as of this encounter
--- OUTSIDE RECORDS SUMMARY | 2024-10-05 14:23 | XMS_ITS | Encounter Summary ---
Author Organization [employer] Address [address] [facility] 7t [place] [address] Care Team Providers Care Senior Statistical Programmer Name Role Phone Marisa Livingston MD Primary Care Provider + Perez Vergara RN Unavailable [phone] Reason for Visit * Reason Comments Med Refill Encounter Details Date Type Department Care Team (Late st Contact Info) Description 09/25/2024 Refill [facility] MEDICINE 230 [place] [address] Marisa Livingston MD [address] [place] [address] Social History Tobacco Use Types Packs/Day Years [...] Description 10/18/2024 3:30 PM EDT Clinical Support [facility] DIABETES/NUTRITION [address] [place] [address] [place] [address] 12/20/2024 9:00 AM EDT Office Visit [facility] MEDICINE [address] [place] [address] Marisa Livingston MD [address] [place] [address] documented as of this encounter Visit Diagnoses Not on filedocumented in this encounter Additional Health Concerns Assessment Noted Time PHQ-9 Depression Total Score: 17 025 9:47 AM EST documented as of this encounter Care Teams Senior Statistical Programmer Relationship Specialty Start Date End Date Marisa Livingston MD [address] [place] [address] PCP - General Family Medicine 03/12/19 Perez Vergara RN [address] [place], [place] [address] [address] Clay Press OperatorCharging Manipulator 06/30/24 09/30/24 documented as of this encounter
--- OUTSIDE RECORDS SUMMARY | 2024-10-05 14:23 | XMS_ITS | Encounter Summary ---
Author Organization [employer] Address [address] 7t [place] [address] Care Team Providers Care Nitrocellulose Operator Name Role Phone Marisa Livingston MD Primary Care Provider + Perez Vergara RN Unavailable [phone] Reason for Visit * Reason Onset Date Comments Appointment 07/12/2022 Encounter Details Date Type Department Care Team (Late st Contact Info) Description 07/12/2022 Telephone [facility] ADULT DENTAL [address] [place] [address] Yeison Arnold, DMD [address] [place] [address] Appointment Social History Tobacco Use Types Packs/Day [...] Clinical Support [facility] DIABETES/NUTRITION [address] [place] [address] [place] [address] 12/20/2024 9:00 AM EDT Office Visit [facility] MEDICINE [address] [place] [address] Marisa Livingston MD 230 [place] [address] documented as of this encounter Visit Diagnoses Not on filedocumented in this encounter Additional Health Concerns Assessment Noted Time PHQ-9 Depression Total Score: 4 07/03/19 23 10:39 AM EST documented as of this encounter Care Teams Nitrocellulose Operator Relationship Specialty Start Date End Date Marisa Livingston MD 230 [place] [address] PCP - General Family Medicine 03/12/19 Perez Vergara RN [address] [place] [address] Ore Miner BlastingTool Rental Technician 06/30/24 09/30/24 documented as of this encounter
--- OUTSIDE RECORDS SUMMARY | 2024-10-05 14:23 | XMS_ITS | Encounter Summary ---
Author Organization [employer] Address [address] [facility] 7t [place] [address] Care Team Providers Care Him Specialists Name Role Phone Marisa Livingston MD Primary Care Provider + Perez Vergara RN Unavailable [phone] Reason for Visit * Reason Comments Med Refill Encounter Details Date Type Department Care Team (Late st Contact Info) Description 05/27/2024 Refill [facility] MEDICINE [address] [place] [address] Marisa Livingston MD [address] [place] [address] Social History Tobacco Use Types Packs/Day Years [...] 3:30 PM EDT Clinical Support [facility] DIABETES/NUTRITION [address] [place] [address] [place] [address] 12/20/2024 9:00 AM EDT Office Visit [facility] MEDICINE [address] [place] [address] Marisa Livingston MD [address] [place] [address] documented as of this encounter Visit Diagnoses Not on filedocumented in this encounter Additional Health Concerns Assessment Noted Time PHQ-9 Depression Total Score: 17 024 9:31 AM EST documented as of this encounter Care Teams Him Specialists Relationship Specialty Start Date End Date Marisa Livingston MD [address] [place] [address] PCP - General Family Medicine 03/12/19 Perez Vergara RN [address] [place] [address] Docket ClerkWaist Fitter 06/30/24 09/30/24 documented as of this encounter
--- OUTSIDE RECORDS SUMMARY | 2024-10-05 14:23 | XMS_ITS | Clinical Summary ---
Author Organization [employer] Address [address] [facility] [address] [place] [address] Care Team Providers Care Farm Equipment Operator Name Role Phone Marisa Livingston MD [...] hours. Active Nebulizers (Vios Aerosol Delivery System) [facility] USE DIRECTED. 3 Active Fasenra Pen 30 [...] 4 Active ergocalciferol (Vitamin D2) 1.25 MG (58958 UT) capsule TAKE 1 CAPSULE(1.25 MG) BY [...] per week. 2 mL 2 5 Active lidocaine (Lidoderm) 5 % patch Apply 1 patch topically Once per day. Remove & discard patch within 12 hours or as directed by MD. 30 patch 5 026 Active furosemide (Lasix) 20 MG tablet Take 20 mg by mouth Once per day. 025 Discontin ued(Thera py completed ) Active Problems Problem Noted Date Diagnosed Date Cardiac enlargement 06/21/2024 Overview (06/21/2024): Addendum 06/21/24 9:33 AM - CT/CT angio chest PE protocol done in ER 06/18/24 to r/o PE revealsed No evidence of pulmonary embolus or acute aortic syndrome. Pnsk-mg-ydoolmgf cardiac enlargement with predominantly biventricular dilatation. Enlarged [...] of pulmonary embolus or acute aortic syndrome. Bapl-bj-mbynuxun cardiac enlargement with predominantly biventricular dilatation. Enlarged main pulmonary artery suggesting pulmonary arterial hypertension. -will refer to cardiology Moderate persistent asthma without complication 06/17/2024 Assessment & Plan (09/23/2024 3:54 PM EDT): Significantly improved with with Advair and DuoNeb as needed, follow-up with on site manager CARO for Sam still pending Will consider allergy testing after next pulmonology visit Advised regarding flu and COVID vaccinations in the fall Assessment & Plan (07/14/2024 10:59 AM EST): Uncontrolled, worsening s/p Influenza. Chronic exposure to environmental allergens and extreme temperatures. Continue close FU with Assistant Cross Country Coach. Continue Advair plus Duo Neb, awaiting pa for Sam. Will consider allergy testing. Menorrhagia with regular cycle 04/16/2023 Assessment & Plan (07/14/2024 10:51 AM EST): Persistent, most probable cause of anemia. I will refer to Eight Arm Operator at [facility] for [...] exercise, life style modifications, diet, referral to seafood specialist. Discussed re lower calorie intake, increase dietary fiber Assessment & Plan (11/22/2022 1:34 PM EDT): Discussed re weight reduction options including exercise, life style modifications, diet, referral to seafood specialist. Discussed re lower calorie intake, increase [...] -Uncontrolled. -Restart Advair Diskus -Follow up with cotton inspector for immunotherapy. -Counseled on protocol for FMLA [...] gave today NBZ machine written prescription to [facility] nurse staff -Alarm signs and [...] anti-muscarinic inhaler as Trelegy -Referred today to on site manager for uncontrolled asthma Assessment & Plan (07/03/2022 12:50 PM EST): Uncontrolled. Start Flovent BID. She agreed to influenza and PCV 20 today, declined Covid IZ. DUB (dysfunctional uterine bleeding) 07/03/2022 Assessment & Plan (09/23/2024 3:56 PM EDT): Improving but still significant, menstrual periods are more regular now. Follow- up with PRODUCTION FOREMAN Advised to continue p.o. iron as tolerated and follow-up with hematology as well She will follow-up with PRODUCTION FOREMAN regarding desire for after all medical conditions [...] exercise, life style modifications, diet, referral to seafood specialist. Discussed re lower calorie intake, increase [...] at home PAP smear: Overdue, refer to site project manager will need further eval for DUB Adult [...] Encounters Date Type Department Care Team Description 10/04/2024 Telephone [facility] [address] [place] [address] Marisa Livingston MD 10/01/2024 Telephone [facility] [address] [place] [address] Marisa Livingston MD Prior Authorization ( PA: Familia) 10/01/[address] [address] Marisa Livingston MD Care Management (C3- f/u call) 09/27/2024 Orders Only GENERIC EXTERNAL DATA DEPARTMENT Provider, Generic External Data 09/25/[address] [address] Marisa Livingston MD 09/24/2024 Patient Outreach [address] [address] Marisa Livingston MD Care Coordination (Appt reminder) 09/23/2024 10:45 AM EDT Office Visit [address] [address] Marisa Livingston MD Class 1 obesity due to excess calories without serious comorbidity with body mass index (BMI) of 33.0 to 33.9 in adult (Primary Dx); Encounter for preventive health examination; Moderate persistent asthma without complication; DUB (dysfunctional uterine bleeding); Cardiac enlargement; Dietary counseling; Exercise counseling; Encounter for complete eye exam 09/23/2024 Travel 09/23/2024 Patient Outreach [address] [address] Marisa Livingston MD Care Coordination 09/22/[address] [address] Marisa Livingston MD Chart Prep 09/21/[address] [address] Marisa Livingston MD Care Management (C3- f/u call) 09/20/2024 1:30 PM EDT Clinical Support [facility] DIABETES/NUTRITION [address] [place] [phone] Obesity due to excess calories without serious comorbidity, unspecified class (Primary Dx) 09/20/2024 Travel 09/16/2024 Patient Outreach [address] [address] Marisa Livingston MD Pre-visit Planning (SDOH screening completed on 06/29/24) 09/10/2024 Telephone [facility] [address] [place] [address] Marisa Livingston MD Care Management (C3CM- f/u call #3 lvm) 09/07/2024 Patient Outreach [facility] PED[facility] [address] [place] [address] Marisa Livingston MD Transition Of Care (Tcm) 09/05/2024 Orders Only [facility] External Provider, [facility] 08/31/2024 10:30 AM EDT Clinical Support [facility] DIABETES/NUTRITION [address] [place] [address] Obesity due to excess calories without serious comorbidity, unspecified class (Primary Dx) 08/31/2024 Travel 08/30/[address] [address] Marisa Livingston MD Care Management (C3CM- f/u call #2 lvm) 08/18/2024 8:00 AM EDT Office Visit [facility] ADULT DENTAL [address] [place] [address] Zoe Monroy DMD 08/18/2024 Travel 08/17/[address] [address] Marisa Livingston MD Care Management (C3CM- f/u call lvm) 08/06/2024 3:00 PM EDT Clinical Support [facility] DIABETES/NUTRITION [address] [place] [address] Obesity due to excess calories without serious comorbidity, unspecified class 08/06/2024 11:00 AM EDT Office Visit [facility] ADULT DENTAL [address] [place] [address] Glo Lainez DDS 08/06/2024 Travel 08/04/[address] [address] Marisa Livingston MD Care Management (C3CM- f/u call) 07/30/2024 Orders Only [facility] External Provider, [facility] 07/30/2024 Population Health Risk Score Community [facility] (C3) Department [address] [place] [phone] Provider, Population Health Generic 07/29/2024 Telephone [facility] MEDICINE [address] [place] [phone] Marisa Livingston MD Nurse Triage 07/27/2024 Refill [facility] [address] [place] [address] Marisa Livingston MD Moderate persistent asthma without complication 07/23/[address] [address] Marisa Livingston MD Care Management ([facility]- f/u call) 07/22/[address] [address] Marisa Livingston MD Results 07/14/2024 10:00 AM EST Telemedicine [address] [address] Marisa Livingston MD Moderate persistent asthma without complication (Primary Dx); Cardiac enlargement; Menorrhagia with regular cycle; Obesity due to excess calories without serious comorbidity, unspecified class 07/14/2024 Patient Outreach [address] [address] Marisa Livingston MD Care Coordination ([address] Stacey Lloyd telephone call outreach) 07/14/[address] [address] Marisa Livingston MD Appointment Request 07/14/[address] [phone] Marisa Livingston MD Appointment Confirmation 07/14/[address] [address] Marisa Livingston MD Care Management ([facility]- f/u call) 07/14/2024 Travel 07/09/[address] [address] Marisa Livingston MD Chart prep 07/09/2024 Telephone [facility] [address] [place] [address] Marisa Livingston MD Appointment Request 07/09/2024 Telephone [facility] [address] [place] [address] Marisa Livingston MD Appointment Request from Last 3 Months Immunizations Immunization Administration Dates Next Due Influenza injectable quadriv [...] Q2 Not on file 06/29/2024 Comments No Intention Date Recorded Wants to become (finding) 09/23 Sex and Gender Information Value Date Recorded [...] Description 10/18/2024 3:30 PM EDT Clinical Support [facility] DI[facility]ET[facility]NUTRITION [address] [place] [address] [place] [address] 12/20/2024 9:00 AM EDT Office Visit [facility] MED[facility]INE [address] [place] [phone] Marisa Livingston MD [address] [place] [address] Health Maintenance Due Date Last Done Comments [...] 06/29/2025 06/29/2024 Depression Screening 07/14/2025 07/14/2024, 07/14/19 Disability Screening 09/23/2025 09/23/2024 Family Planning (PISQ) 09/23/2025 09/23/2024 Tobacco Screening [...] patient's age to complete this topic Meningococcal B Vaccine Aged Out No l onger eligible based on patient's age to complete [...] Procedure Name Priority Date/Time Associated Diagnosis Comments B TYPE NATRIURETIC PEPTIDE (BNP) Routine 09/27/2024 2:05 PM EDT BASIC METABOLIC PANEL Routine 09/27/2024 2:05 PM EDT XR HAND 1-2 VIEWS LEFT Routine 09/05/2024 [...] Recently Relevant to Health Maintenance Results * B Type Natriuretic Peptide (BNP) (09/27/2024 2:05 PM EDT) Pathologist [facility] B Type Natriuretic Peptide 10 <100 pg/mL [facility] 09/27/2024 2:05 PM EDT 09/27/2024 2:05 PM EDT us Generic External Data Provider LAB BLOOD ORDERAB LES Final Result [facility] [address] [place] [phone] * (ABNORMAL) Basic Metabolic Panel (09/27/2024 2:05 PM EDT) Only the most recent of2 resultswithin the time period is included. Pathologist [facility] Sodium 142 135 - 145 mmol/L [facility] Potassium 4.3 3.3 - 5.1 mmol/L [facility] Chloride 109(H) 96 - 108 mmol/L [facility] Carbon Dioxide 26 22 - 29 mmol/L [facility] Anion Gap 11(L) 12 - 20 [facility] Urea Nitrogen (BUN) 8(L) 9 - 16 mg/dL [facility] Creatinine, Serum 0.63 0.5 - 1.4 mg/dL [facility] Estimated Glomerular Filt Rate >60 [facility] Comment:Chronic Kidney Disea se: Estimated GFR < 60 mL/min/1.00y1Ozptzb Kidney Disease: Estimated GFR < 15 mL/min/1.73m2 Glucose 94 60 - 115 mg/dL [facility] Calcium 9.2 8.4 - 10.2 mg/dL [facility] 09/27/2024 2:05 PM EDT 09/27/2024 2:05 PM EDT us Generic External Data Provider LAB BLOOD ORDERAB LES Final Result [facility] [address] [place] [address] [phone] * XR WRIST LT W SCAPHOID (09/05/2024 1:44 PM EDT) Anatomical Region Laterality Modality Upper Extremities, Wrist Left Radiogr aphic Imaging 09/05/2024 1:44 PM EDT Narrative 09/05/2024 1:46 PM EDT ? [facility] ?[address] ?[place] [address] ?XRay Report ? Signed ? Patient: Cleo Rock ?MR#: ?? [id number] ? : 1990 ?Acct:[id number] ? Age/Sex: 33 / F ?ADM Date: 04/20/25 ? Loc: HO.ED ? Attending Dr: ? Ordering Physician: Iqra Luke CNP ?? Date of Service: 09/05/24 ?? Procedure(s): XR wrist LT w scaphoid ?? Accession Number(s): [id number] ? cc: Iqra Luke CNP; Marisa Livingston [...] DD/ 1344 ? TD/TT: 09/05/24 1344 ? 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 [facility] ?[address] ?[place] [address] ?XRay Report ? Signed ? Patient: Cleo Rock ?MR#: ?? [id number] ? : 1990 ?Acct:[id number] ? Age/Sex: 33 / F ?ADM Date: 09/05/24 ? Loc: HO.ED ? Attending Dr: ? Ordering Physician: Iqra Luke CNP ?? Date of Service: 09/05/24 ?? Procedure(s): XR hand LT 2V ?? Accession Number(s): [id number] ? cc: Iqra Luke CNP; Marisa Livingston [...] DD/ 1344 ? TD/TT: 09/05/24 1344 ? 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 [facility] ?[address] ?[place] [address] ? CT Scan Report ? Signed ? Patient: Cleo Rock ?MR#: ?? [id number] ? : 1990 ?Acct:[id number] ? Age/Sex: 33 / F ?ADM Date: 07/30/24 ? Loc: HO.ED ? Attending Dr: ? Ordering Physician: Amadou Mcmillan ?? Date of Service: 07/30/24 ?? Procedure(s): CT cervical spine wo IV con ?? Accession Number(s): [id number] ? cc: Amadou Mcmillan; Marisa Livingston MD ? Report Number: ?? [id number]: Total DLP = ??560.00 mGy-cm ? CLINICAL [...] in OV> ? 07/30/24 1748 ? DD/ 46 ? TD/TT: 07/30/241746 ? 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 07/30/2024 4:20 PM EDT 07/30/2024 4:28 PM EDT us Generic External Data Provider LAB BLOOD ORDERAB LES Final Result [facility] [address] [place] [address] [phone] * (ABNORMAL) CBC auto differential (07/30/2024 4:20 PM EDT) White Blood Count 5.7 4.8 - 10.8 X10*3/uL [facility] Red Blood Count 4.59 4.20 - 5.50 X10*6/uL [facility] Hemoglobin 9.0(L) 12.0 - 16.0 g/dl [facility] Hematocrit 30.3(L) 37.0 - 47.0 % [facility] Mean Corpuscular Volume 66.0(L) 80.0 - 98.0 fL [facility] Mean Corpuscular Hemoglobin 19.6(L) 27.0 - 33.0 pg [facility] Mean Corpuscular HGB Conc 29.7(L) 31.0 - 35.0 g/dl [facility] Red Cell Distribution Width 18.0(H) 11.0 - 16.0 % [facility] Platelet Count 343 160 - 400 X10*3/uL [facility] Mean Platelet Volume 9.3(L) 9.4 - 12.3 fL [facility] Neutrophils Percent Auto 61.8 45 - 73 % [facility] Imm Gran Pct Auto 0.7(H) 0.0 - 0.4 % [facility] Lymphocytes Percent Auto 23.4 20 - 40 % [facility] Monocytes Percent Auto 7.7 2 - 11 % [facility] Eosinophils Percent Auto 5.9(H) 0 - 4 % [facility] Basophils Percent Auto 0.5 0 - 2 % [facility] NRBC Pct Auto 0.0 0.0 - 0.2 /100WBC [facility] Neutrophils Absolute Auto 3.5 2.0 - 8.3 x10*3/uL [facility] Imm Gran Abs Auto 0.04(H) 0.00 - 0.03 X10*3/uL [facility] Lymphocytes Absolute Auto 1.3 1.2 - 4.9 X10*3/uL [facility] Monocytes Absolute Auto 0.4 0.1 - 1.2 X10*3/uL [facility] Eosinophils Absolute Auto 0.3 0.0 - 0.4 X10*3/uL [facility] Basophils Absolute Auto 0.0 0.0 - 0.2 X10*3/uL [facility] NRBC Abs Auto 0.000 0.0 - 0.012 X10*3/uL [facility] 07/30/2024 4:20 PM EDT 07/30/2024 4:28 PM EDT Generic External Data Provider LAB BLOOD ORDERAB LES Final Result Performing Organization Address [facility] Co de Phone Number [facility] [address] [place] [phone] * Partial Thromboplastin Time, Activated (APTT) (07/30/2024 4:20 PM EDT) Partial Thromboplastin Time 28.9 26.0 - 36.8 SEC [facility] Comment:For information rega rding the monitoring of direct thrombininhibitors, please refer to Pharmacy. 07/30/2024 4:20 PM EDT 07/30/2024 4:28 PM EDT Generic External Data Provider LAB BLOOD ORDERAB LES Final Result Performing Organization Address [facility] Co de Phone Number [facility] [address] [place] [phone] * Prothrombin Time-INR (07/30/2024 4:20 PM EDT) Prothrombin Time 12.1 10.9 - 12.4 SEC [facility] INTERNATIONAL NORM RATIO 1.0 0.9 - 1.1 [facility] Comment:INTERNATIONAL NORMAL IZED RATIO (INR) [...] Provider LAB BLOOD ORDERAB LES Final Result [facility] [address] [place] [address] [phone] * (ABNORMAL) Comprehensive Metabolic Panel (07/30/2024 4:20 PM EDT) Sodium 142 135 - 145 mmol/L [facility] Potassium 4.0 3.3 - 5.1 mmol/L [facility] Chloride 109(H) 96 - 108 mmol/L [facility] Carbon Dioxide 27 22 - 29 mmol/L [facility] Anion Gap 10(L) 12 - 20 [facility] Urea Nitrogen (BUN) 7(L) 9 - 16 mg/dL [facility] Creatinine, Serum 0.58 0.5 - 1.4 mg/dL [facility] Creatinine Clr Calc Pharmacy 145.0 [facility] Comment:Provided height and weight: 162.56 cm,87.6 kg.eGFR (calculated from the MDRD study equation) and eCrCl(calculated from the Cockcroft-Gault equation) are based ondifferent parameters and may not yield comparable results.If eCrCl result is absurd, please check patient'sheight/weight. Estimated Glomerular Filt Rate >60 [facility] Comment:Chronic Kidney Disea se: Estimated GFR < 60 mL/min/1.24o1Zhjyox Kidney Disease: Estimated GFR < 15 mL/min/1.73m2 Glucose 92 60 - 115 mg/dL [facility] Calcium 9.8 8.4 - 10.2 mg/dL [facility] Bilirubin, Total 0.5 0.0 - 1.0 mg/dL [facility] Aspartate Amino Transferase 20 5 - 31 U/L [facility] Alanine Aminotransferase 23 0 - 31 U/L [facility] Total Protein 8.4(H) 6.5 - 8.0 g/dL [facility] Albumin Level 4.5 3.5 - 5.0 g/dL [facility] Alkaline Phosphatase 77 39 - 117 U/L [facility] 07/30/2024 4:20 PM EDT 07/30/2024 4:28 PM EDT us Generic External Data Provider LAB BLOOD ORDERAB LES Final Result [facility] [address] [place] [address] [phone] * CT Head w/o Contrast (07/30/2024 11:39 AM EDT) Anatomical Region Laterality Modality Head, Neck Computed Tomogra phy 07/30/2024 11:3 9 AM EDT Narrative 07/30/2024 12:13 PM EDT ? [facility] ?[address] ?[place] [address] ? CT Scan Report ? Signed ? Patient: Cleo Rock ?MR#: ?? [id number] ? : 1990 ?Acct:[id number] ? Age/Sex: 33 / F ?ADM Date: 03/14/25 ? Loc: HO.ED ? Attending Dr: ? Ordering Physician: Caitie Wilkerson NP ?? Date of Service: 07/30/24 ?? Procedure(s): CT head/brain wo IV con ?? Accession Number(s): [id number] ? cc: Marisa Livingston MD; Caitie Wilkerson NP ? Report Number: ?? [id number]: Total DLP = ??706.00 mGy-cm ?? EXAMINATION: [...] DD/ 1139 ? TD/TT: 07/30/24 1153 ? 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 [facility] ?[address] ?[place] [address] ?XRay Report ? Signed ? Patient: Cleo Rock ?MR#: ?? [id number] ? : 1990 ?Acct:[id number] ? Age/Sex: 33 / F ?ADM Date: 07/30/24 ? Loc: HO.ED ? Attending Dr: ? Ordering Physician: Caitie Wilkerson NP ?? Date of Service: 07/30/24 ?? Procedure(s): XR chest 2V ?? Accession Number(s): [id number] ? cc: Marisa Livingston MD; Caitie Wilkerson [...] DD/ 1128 ? TD/TT: 07/30/24 1138 ? 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 TS PANEL A 0 [facility] TS PANEL B 1 [facility] Negative Control Passed [facility] Positive Control Passed [facility] Comment:For additional infor mation, please refer tohttp://education.ConnectEdu/faq/GRV432(This link is being provided for informational/educational purposes only.)THIS TEST WAS PERFORMED AT:[employer] [id number] [place] [address]RRTEILRKHUSHI SHAY MD,PHD 07/22/2024 10:4 8 AM EST 07/22/2024 11:51 AM EST us Marisa Livingston MD LAB BLOOD ORDERABLES Fin al Result [facility] [address] [place] [phone] * Pap Smear (08/05/2023 3:15 PM EDT) 08/05/2023 3:15 PM EDT 08/07/2023 1:00 PM EDT Narrative [facility] - 08/18/2023 1:17 PM EDT ----- ------- Name: Cleo Rock ? Age/Sex: 32/F ? : 1990 Unit#: [id number] ?? Attend Dr: NaomiAmaris MARA ?Re08/05/23 ?Status: DEP REF ? Location: HO.LNP ?Disch: ? ----- ------- SPEC : [id number] ? RECD: 08/07/23-1300 ? STATUS: ??SOUT ? REQ NUM: [id number] ? MEAGAN: 08/05/23-3445 ? SUBM DR: NaomiAmaris MARA ? ENTERED: ??08/07/23-1338 ?SP TYPE: Pap Smr ?OTHR DR: Marisa [...] 66, 68) ?? HPV testing performed by [facility], [place], [place]. ??See reference laboratory ?? portion of the EMR for entire report. ?Clinical Information LMP: 07/17/23 Previous PAP test: 09/17/17, WNL ? Material Received ?? ThinPrep-Cervical Copies To: ?? Marisa Livingston MD ?? [address] [facility] ?? [place] [id number] ? Amaris Salgado CNM ?? [address] [facility] ?? [place] [address] ?? [phone] ----- ------- Signed (signature on file) IDANIA Hutchinson (ASCP) 08/18/23 1317 ? ----- ------- ? END OF REPORT ? us Generic External Data Provider LAB CYTOLOGY GILBERT UGARTE Final Result Performing Organization Address [facility] [place] [facility] Co de Phone Number [facility] [address] [place] [address] [phone] * HIV Ab/Ag (IRAJ MARIA) (12/09/2022 1:30 PM EDT) HIV AB/AG Nonreactive Nonreactive [facility] Comment:HIV-1 p24 Ag and/or HIV-1/HIV-2 Ab not detected.A test result that is nonreactive does not exclude thepossibility of exposure to or infection with HIV-1 and/orHIV-2. Nonreactive results in this assay for individualswith prior exposure to HIV-1 and/or HIV-2 may be due toantigen and antibody levels that are below the limit ofdetection of this assay.The [place] [employer] HIV Ag/Ab Combo assay result andsupplemental assay results should be interpreted inconjunction with the patient's clinical presentation,history and other laboratory results. If the results areinconsistent with clinical evidence, additional testing issuggested to confirm the result. 12/09/2022 1:30 PM EDT 12/09/2022 4:12 PM EDT us Marisa Livingston MD LAB BLOOD ORDERABLES Fin al Result Performing Organization Address [facility] [place] [facility] Co de Phone Number [facility] [address] [place] [address] [phone] * Lipid Panel, Standard (12/09/2022 1:30 PM EDT) Triglycerides 56 mg/dL [facility] Comment:Desirable Triglyceri de: less than 150 mg/dLBorderline High Triglyceride 150-199 mg/dLHigh Triglyceride: 200-499 mg/dLVery High Triglyceride: greater than or equal to 5OO mg/dL Cholesterol 114 mg/dL [facility] Comment:Desirable Cholestero l: less than 200 mg/dLBorderline High Cholesterol: 200-239 mg/dLHigh Cholesterol: greater than 239 mg/dL LDL Cholesterol Calculated 65 mg/dl [facility] Comment:Desirable LDL: less than 100 mg/dLNear Optimal/Above Optimal LDL: 110- 129 mg/dLBorderline High LDL: 130-159 mg/dLHigh LDL: 160-189 mg/dLVery High LDL: greater than or equal to 190 mg/dL HDL Cholesterol 38 mg/dL [facility] Comment:Desirable HDL: great er than 40 mg/dL Note: This HDL assay may give artificially low results in patients with liver disease. 12/09/2022 1:30 PM EDT 12/09/2022 4:12 PM EDT Marisa Livingston MD LAB BLOOD ORDERABLES Fin al Result [facility] [address] [place] [address] [phone] from Last 3 Months or Most Recently Relevant to Health Maintenance Insurance [facility] C3 DENTAL-[facility] MEDICAID STAND ADULT Care Teams Farm Equipment Operator Relationship Specialty Start Date End Date Marisa Livingston MD [address] [place] [id number] PCP - General Family Medicine 03/12/19
--- OUTSIDE RECORDS SUMMARY | 2024-10-05 14:23 | XMS_ITS | Encounter Summary ---
Author Organization [employer] Address [address] [facility] 7t [place] [address] Care Team Providers Care Auto Transmission Mechanic Name Role Phone Marisa Livingston MD Primary Care Provider + Perez Vergara RN Unavailable [phone] Encounter Details Date Type Department Care Team ([facility] Contact Info) Description 07/19/2022 Abstract [facility] ADULT DENTAL [address] [place] [address] Berlin Hagen, DMD [address] [place] [address] Social History Tobacco Use Types Packs/Day Years [...] Clinical Support [facility] DIABETES/NUTRITION [address] [place], [place] [phone] [address] [place], [place] 12/20/2024 9:00 AM EDT Office Visit [facility] MEDICINE [address] [place] [address] Marisa Livingston MD [address] [place] [address] documented as of this encounter Visit Diagnoses Not on filedocumented in this encounter Additional Health Concerns Assessment Noted Time PHQ-9 Depression Total Score: 4 07/03/19 23 10:39 AM EST documented as of this encounter Care Teams Auto Transmission Mechanic Relationship Specialty Start Date End Date Marisa Livingston MD [address] [place] [address] PCP - General Family Medicine 03/12/19 Perez Vergara RN [address] [place] [address] Alligator HunterRadio News Writer 06/30/24 09/30/24 documented as of this encounter
--- OUTSIDE RECORDS SUMMARY | 2024-10-05 14:23 | XMS_ITS | Encounter Summary ---
Author Organization [employer] Address [address] [facility] 7 [place] [address] Care Team Providers Care Customs Guard Name Role Phone Marisa Livingston MD Primary Care Provider + Perez Vergara RN Unavailable [phone] Reason for Visit * Reason Onset Date Comments Appointment Request 07/09/2024 Encounter Details Date Type Department Care Team ([facility] st Contact Info) Description 07/09/2024 Telephone [facility] MEDICINE [address] [place] [address] Marisa Livingston MD [address] [place] [address] Appointment Request Social History Tobacco Use Types [...] to reschedule appt with pcp. Contact pt, anguillan documented in this encounter Plan of Treatment Upcoming Encounters Date Type Department Care Team (Late st Contact Info) Description 10/18/2024 3:30 PM EDT Clinical Support [facility] DIABETES/NUTRITION [address] [place] [phone] [place], [place] [phone] 12/20/2024 9:00 AM EDT Office Visit [facility] MEDICINE [address] [place], [place] [phone] Marisa Livingston MD [address] [place], [place] [phone] documented as of this encounter Visit Diagnoses Not on filedocumented in this encounter Additional Health Concerns Assessment Noted Time PHQ-9 Depression Total Score: 17 024 9:31 AM EST documented as of this encounter Care Teams Customs Guard Relationship Specialty Start Date End Date Marisa Livingston MD [address] [place] [address] PCP - General Family Medicine 03/12/19 Perez Vergara RN [address] [place] [address] Blue Print Control ClerkWasher Off 06/30/24 09/30/24 documented as of this encounter
--- OUTSIDE RECORDS SUMMARY | 2024-10-05 14:23 | XMS_ITS | Encounter Summary ---
Author Organization [employer] Address [address] [facility] [address] 7[address] [place] [address] Care Team Providers Care Public Address Systems Mechanic Name Role Phone Marisa Livingston MD Primary Care Provider + Encounter Details Date Type Department Care Team ([facility] st Contact Info) Description 10/04/2024 Telephone [facility] MEDICINE [address] [place], [place] [phone] Marisa Livingston MD [address] [place] [address] Social History Tobacco Use Types Packs/Day Years [...] Telephone Encounter - Perez Vergara RN - 10/04/2024 11:02 AM EDT CM received v/m from patient 10/01 requesting call back. Call returned to patient. Patient states she received a call from Cardiology last week and was informed that she is scheduled for a cardiac MRIon 10/27/24. Per patient, had difficulty understanding what was discussed with her due to language barrier. She states the person who called her only spoke Mohawk. Patient requesting CM outreach the office and request that Uzbek speaking staff or dye feeder reach out to her to re discuss what was communicated to her last week. CM called the office and left detailed v/m requesting that a call be placed to patient. Also advised they f/u with CM with any questions/ concerns. Call placed to patient and patient informed. She verbalizes understanding and agrees to reach out to CM if she does nothear back from Cardiology. CM also reminded patient of her scheduled visit with [facility] Pulmonology tomorrow 10/05/24 at 1:30pm. Patient verbalizes understanding and denies any barriers to attending visit. documented in this encounter Plan of Treatment Upcoming Encounters Date Type Department Care Team (Late st Contact Info) Description 10/18/2024 3:30 PM EDT Clinical Support [facility] DIABETES/NUTRITION [address] [place], [place] [phone] Mandi Pinedo [address] [place], [place] [phone] 12/20/2024 9:00 AM EDT Office Visit [facility] MEDICINE [address] [place], [place] [phone] Marisa Livingston MD [address] [place], [place] [phone] documented as of this encounter Visit Diagnoses Not on filedocumented in this encounter Additional Health Concerns Assessment Noted Time PHQ-9 Depression Total Score: 17 025 9:47 AM EST documented as of this encounter Care Teams Public Address Systems Mechanic Relationship Specialty Start Date End Date Marisa Livingston MD [address] [place] [address] [phone] PCP - General Family Medicine 03/12/19 documented as of this encounter
--- OUTSIDE RECORDS SUMMARY | 2024-10-05 14:23 | XMS_ITS | Encounter Summary ---
Author Organization [employer] Address [address] [place] [address] 7 [place] [address] Care Team Providers Care Ornamental Iron Worker Helper Name Role Phone Marisa Livingston MD Primary Care Provider + Reason for Visit * Reason Onset Date Comments Care Management 10/01/2024 C3CM- f/u call Encounter Details Date Type Department Care Team ([facility] st Contact Info) Description 10/01/2024 Telephone [facility] MEDICINE [address] [place] [address] Marisa Livingston MD [address] [place] [address] Care Management (C3CM- f/u call) Social History [...] Telephone Encounter - Perez Vergara RN - 10/01/2024 9:48 AM EDT GEOVANY Vergara RN, sent notification to PCP Dr. Livingston to inform that patient has completed C3 Adult Complex Care program with goals partially/fully met at this time. * Telephone Encounter - Perez Vergara RN - 10/01/2024 9:48 AM EDT GEOVANY Vergara RN and LIAM Gonzalez placed outbound call to patient. Patient's name, and address confirmed. Patient states is doing well with no recent illnesses or emergency room visits.Patient confirms attending visit with PCP on 09/23/24. She states the visit went well. Per patient, received a call from [employer] pharmacy stating that the Zepbound was not covered by her insurance. She states she was advised that a PA request was sent to PCP. Per patient, has not yet received a call with a status. CM will send message to PA team to contact patient. She agrees. Patient states shewent to visit with Cardiology on 09/27. She states she completed the ordered lab work. Per patient, can see the results pending but has not received a call from the office with interpretation of results and plan of care. Patients states her legs are still swollen and painful and would like for Cardiology to contact her. CM called [facility] Cardiology. Informed a message was sent to their provider to review and they will contact patient with a response. Patient is scheduled to f/u with Cardiology againon 11/08/24 at 3:00pm. CM informed patient of above and advised she f/u if she does not hear back from the office. She agrees. Patient denies any further needs or concerns at this time. No further questions or concerns. CM reinforced direct contact information or CHW for any additional questions or concerns. Education provided on Walk[facility]In Ur[facility] Care located in [facility]. Patient provided with after-hours line for [facility], , which offer night time triage service and option to transfer to slag production worker provider if needed. CM discussed with the patient progress made towards established goals. Patient notified is being graduated from the Care Management Program. Patient was educated on how to receive care management services in the future. Patient agrees with the plan and will contact us if any future needs arise. documented in this encounter Plan of Treatment Upcoming Encounters Date Type Department Care Team (Late st Contact Info) Description 10/18/2024 3:30 PM EDT Clinical Support [facility] DIABETES/NUTRITION [address] [place], [place] [phone] Mandi Pinedo [address] [place], [place] [phone] 12/20/2024 9:00 AM EDT Office Visit [facility] MEDICINE [address] [place], [place] [phone] Marisa Livingston MD [address] [place], [place] [phone] documented as of this encounter Visit Diagnoses Not on filedocumented in this encounter Additional Health Concerns Assessment Noted Time PHQ-9 Depression Total Score: 17 025 9:47 AM EST documented as of this encounter Care Teams Ornamental Iron Worker Helper Relationship Specialty Start Date End Date Marisa Livingston MD [address] [place] [phone] PCP - General Family Medicine 03/12/19 documented as of this encounter
--- OUTSIDE RECORDS SUMMARY | 2024-10-05 14:24 | XMS_ITS | Encounter Summary ---
Author Organization [employer] Address [address] [place] [address] [address]t [place] [address] Care Team Providers Care Pet Supplies Salesperson Name Role Phone Marisa Livingston MD Primary Care Provider + Perez Vergara RN Unavailable [phone] Encounter Details Date Type Department Care Team (Latest Contact Info) Description 02/27/2022 Abstract [facility] CONVERSIONS Dental, Provider, DDS Social History [...] Description 10/18/2024 3:30 PM EDT Clinical Support [facility] DIABETES/NUTRITION [address] [place] [phone] [place] [address] 12/20/2024 9:00 AM EDT Office Visit [facility] MEDICINE [address] [place] [address] Marisa Livingston MD [address] [place], [place] [phone] documented as of this encounter Visit Diagnoses Not on filedocumented in this encounter Care Teams Pet Supplies Salesperson Relationship Specialty Start Date End Date Marisa Livingston MD [address] [place] [address] PCP - General Family Medicine 03/12/19 Perez Vergara RN [address] [place] [address] Oxidation OperatorComputer Information Systems Instructor 06/30/24 09/30/24 documented as of this encounter
--- OUTSIDE RECORDS SUMMARY | 2024-10-05 14:24 | XMS_ITS | Encounter Summary ---
Author Organization [employer] Address [address] [place] [address] 7[address] [place] [address] Care Team Providers Care Agricultural Produce Packer Name Role Phone Marisa Livingston MD Primary Care Provider + Perez Vergara RN Unavailable [phone] Encounter Details Date Type Department Care Team (Late st Contact Info) Description 06/27/2022 Abstract [facility] ADULT DENTAL [address] [place] [address] Jeramie Treadwell DDS [address] [place], [place] [phone] Social History Tobacco Use Types Packs/Day Years [...] Description 10/18/2024 3:30 PM EDT Clinical Support [facility] DIABETES/NUTRITION [address] [place] [address] [place] [address] 12/20/2024 9:00 AM EDT Office Visit [facility] MEDICINE [address] [place], [place] [phone] Marisa Livingston MD [address] [place] [address] documented as of this encounter Visit Diagnoses Not on filedocumented in this encounter Care Teams Agricultural Produce Packer Relationship Specialty Start Date End Date Marisa Livingston MD [address] [place] [address] [phone] PCP - General Family Medicine 03/12/19 Perez Vergara, CHAPITO [address] [place] [address] Biostatistics ProfessorSheet Metal Installer 06/30/24 09/30/24 documented as of this encounter
--- OUTSIDE RECORDS SUMMARY | 2024-10-05 14:24 | XMS_ITS | Encounter Summary ---
Author Organization [employer] Address [address] [place] [address] 7t [place] [address] Care Team Providers Care Spot Welder Line Name Role Phone Marisa Livingston MD Primary Care Provider + Perez Vergara RN Unavailable [phone] Encounter Details Date Type Department Care Team (Latest Contact Info) Description 03/26/2019 Abstract [facility] CONVERSIONS Dental, Provider, DDS Social [...] Description 10/18/2024 3:30 PM EDT Clinical Support [facility] DIABETES/NUTRITION [address] [place] [address] [place] [address] 12/20/2024 9:00 AM EDT Office Visit [facility] MEDICINE [address] [place], [place] [phone] Marisa Livingston MD [address] [place], [place] [phone] documented as of this encounter Visit Diagnoses Not on filedocumented in this encounter Care Teams Spot Welder Line Relationship Specialty Start Date End Date Marisa Livingston MD [address] [place] [address] PCP - General Family Medicine 03/12/19 Perez Vergara RN [address] [place] [address] Bottle Packing Machine CleanerTime Lock Expert 06/30/24 09/30/24 documented as of this encounter
== END 2024-10-05 14:02 | disposition home or self-care (01) ==
LOC: HO.HPS 13:16
PROVIDERS: PCP Internal Medicine; Visit Provider Internal Medicine Pulmonary Disease
DX: J45.50 Severe persistent asthma, uncomplicated (principal); Z91.09 Other allergy status, other than to drugs and biological substances
CPT/HCPCS: 99214

== ENCOUNTER → 2024-10-05 13:15 | Outpatient (BNVA) | payer MEDICAID, SELFPAY | PROVIDERS: PCP Internal Medicine; Visit Provider Internal Medicine Pulmonary Disease | DX: J45.50 Severe persistent asthma, uncomplicated (principal); R06.09 Other forms of dyspnea; Z91.09 Other allergy status, other than to drugs and biological substances | CPT/HCPCS: 99212 ==

== ENCOUNTER 2024-11-08 15:04 | Outpatient (AMB) | payer MEDICAID, SELFPAY ==
[2024-11-08 15:07] VITALS: BP 100/62; PULSE 92; BMI 31.9
--- NOTE | 2024-11-08 15:07 | A.OFFVIS_ITS ---
Vital Signs 11/08/24 15:07 Height 5 ft 4 in Weight 186 lb 1.122 oz BMI 31.9 BP 100/62 Blood Pressure Location Lt brachial Position Sitting Pulse 92 Pulse Source Pulse Oximeter Intake Visit Reasons: 6 wk f/up per NS pending cardiac MRI Employment Evaluator/Case Manager Required: Yes Employment Evaluator/Case Manager Language: Cathode Ray Tube Salvage Processor Name: VOICE [email or web address] [id number] Allergies latex Allergy (Verified 11/08/24 15:10) Rash Medication List - Last Reconciled 11/08/24 by WILIAN RankinC albuterol sulfate 90 mcg/actuation 2 puffs inhalation Q4-6H PRN aripiprazole 5 mg PO DAILY benralizumab 30 mg subcut Q8W 56 days benzonatate 100 mg PO TID PRN bupropion HCl XL 150 mg PO DAILY fluticasone propion-salmeterol 230-21 mcg/actuation (Advair HFA) 2 puffs inhalation BID 30 days furosemide 40 mg PO QAM ipratropium-albuterol 0.5 mg-3 mg(2.5 mg base)/3 mL 3 mL inhalation Q4-6H PRN lidocaine 5% 1 patch topical DAILY naproxen 500 mg PO BID PRN 7 days oxcarbazepine 150 mg PO BID sumatriptan succinate 0 mg PO DAILY trazodone 50 mg PO DAILY PRN HPI HPI 6 wk f/up per NS pending cardiac MRI: Details: Elizabeth is a 33-year-old female with past medical history of asthma who was being evaluated for shortness of breath and orthopnea. She did have an echocardiogram which showed EF 50-55%. She was then sent for cardiac MRI which shows nonischemic cardiomyopathy EF 48%. She now presents for follow-up. Today she reports that she continues to have shortness of breath with activity and at times she will have orthopnea and leg edema. She is currently on lays has has helped with the orthopnea and edema. Her asthma is being followed by pulmonology. She reports having sharp pains in her chest with physical activity and at rest. She has a also noticing rapid heart palpitations which her randomly. She has no lightheadedness, presyncope. 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 She describes having a significant respiratory illness requiring admission last fall that she believes was hand 2 virus though she states she was not tested. She had cleaned a house with signif icant wrap droppings and believes she had been exposed. She had another respiratory illness in May as she believes was related. She is compliant with her medications. PENDING SALE TO [facility] Medical History Asthma Family History Daughter Cancer of brain Maternal Grandfather Colon cancer Paternal Grandfather Throat cancer Mother Heart problem Social History Household Members: Children Housing: House Alcohol intake: never Patient Tobacco Use Status: Former Tobacco user Current occupational status: employed Gender identity: Female Female Reproductive History Menstrual Age of Menarche: 5 Review of Systems Const All systems reviewed & are unremarkable except as noted in HPI and below ENT Denies dizziness Card Details: rapid heart palpitations at random times Reports chest pain, Reports chest pain at rest, Reports chest pain with activity, Reports rapid heart rate, Denies pedal edema, Denies edema, Reports leg edema (when she doesnt take Lasix), Denies lightheadedness, Reports palpitations, Reports dyspnea, Reports dyspnea on exertion and Denies orthopnea Resp Denies cough, Reports dyspnea and Reports dyspnea on exertion GI Denies hematochezia and Denies change in stool character Musc Denies abnormal gait, Denies limited range of motion, Denies muscle cramps, Denies muscle weakness, Denies numbness, Denies radiating pain into limb and Denies tingling Neuro Denies abnormal gait, Denies dizziness, Denies numbness and Denies tingling Endo Reports palpitations Physical Exam Vital Signs: Last Vital Signs Pulse 92 11/08/24 15:07 BP 100/62 11/08/24 15:07 BMI result Body Mass Index 31.9 Const General: cooperative, healthy appearing, comfortable and no acute distress Orientation/consciousness: patient oriented x3 Neck Neck: Yes normal visual inspection Resp Effort & Inspection: normal respiratory effort Auscultation: clear to auscultation bilaterally, no rales, no rhonchi and no wheezes Cardio Jugular venous distension: no JVD Rate: regular rate Rhythm: regular rhythm Heart sounds: S1 normal heart sound present, S2 normal heart sound present, no gallops, no murmurs and no rubs Neuro General: patient oriented x3 Extrem General: Yes normal to inspection and No no pedal edema Psych Appearance: grossly normal Mental Status: mental status grossly normal Speech and movement: Normal speech and movement present Assessment & Plan Assessment & Plan (1) Cardiomyopathy: Code(s): I42.9 - Cardiomyopathy, unspecified Category: Medical Plan: Recent echocardiogram with finding of mild cardiomyopathy EF 50-55%. She then underwent a cardiac MRI for further evaluation showing nonischemic cardiomyopathy, EF 48%. She is reporting symptoms of shortness of breath, orthopnea and leg edema some of which is controlled with Lasix as prescribed by pulmonology. Recent BNP 10, so was not felt to have heart failure. Unclear cause for her mild cardiomyopathy. She is reporting atypical chest discomfort and heart palpitations. Will check a exercise stress echo to evaluate for any ischemia. Will check a Holter monitor to assess for arrhythmia. Cardiology follow-up 6-8 weeks, sooner if needed. (2) Dyspnea on exertion: Code(s): R06.09 - Other forms of dyspnea Category: Medical Plan: As above. She does not appear fluid overloaded on examination. Asthma treated by Dr. Parada, pulmonology (3) Chest discomfort: Code(s): R07.89 - Other chest pain Category: Medical Plan: Reports of chest discomfort, sharp and squeezing occurring at rest and with activity. Not likely to have coronary artery disease. Mother had history of sudden age 23, unclear details. Planning stress test as above. (4) Heart palpitations: Code(s): R00.2 - Palpitations Category: Medical Plan: Reports of heart palpitations like her heart is beating fast. Pulse is regular on examination. Checking Holter (5) Orthopnea: Code(s): R06.01 - Orthopnea Category: Medical Plan: As above (6) Asthma: Code(s): J45.909 - Unspecified asthma, uncomplicated Category: Medical Plan: As above Plan I discussed with the patient the need for a stress echocardiogram and Holter monitor to evaluate her cardiac function and symptoms of palpitations and chest discomfort. I reviewed the results of cardiac MRI with her. We talked about the importance of continuing the diuretic to manage her edema and the need to monitor her fluid intake and urine output to avoid dehydration. I advised her to keep track of her symptoms and report any significant changes, particularly concerning her chest pain and breathing difficulties.We will schedule follow-up appointments to review the results of her tests and adjust her management plan as needed. Orders: Orders CA echo stress exercise Today I42.9 - Cardiomyopathy, unspecified, R07.89 - Other chest pain ECG 3 day holter monitor Today I42.9 - Cardiomyopathy, unspecified, R00.2 - Palpitations Patient Instructions: - Continue taking your diuretic as prescribed. - Report any significant changes in symptoms, especially chest pain and breathing difficulties. - Attend scheduled follow-up appointments to discuss test results and management plan. Patient was informed and verbally consented to the use of an ambient scribe for clinic note documentation during this visit. Visit time spent on chart review, interview, assessment, orders, documentation. Coding Level of Care Code Est Pt Level 4 (95428) Complex EM visit Add On G2211 Diagnoses Cardiomyopathy I42.9 Dyspnea on exertion R06.09 Chest discomfort R07.89 Heart palpitations R00.2 Orthopnea R06.01 Asthma J45.909 Time Spent (min) 30
--- OUTSIDE RECORDS SUMMARY | 2024-11-08 16:37 | XMS_ITS | Encounter Summary ---
Author Organization [employer] Address [address] [place] [address] [facility] [place] [address] Care Team Providers Care Tile Fitter Name Role Phone Marisa Livingston MD Primary Care Provider + Perez Vergara RN Unavailable [phone] Reason for Referral * Consultation (Routine) - Closed Specialty Diagnoses / Procedures Referred By Contac t Referred To Contact Hematology and Oncology Diagnoses Chronic anemia Jaki Cruz MD [address] [place] [address] Phone: tel: fax: [address] Phone: tel: fax: Referral ID Status Reason Start Date Expiration Date V isits Requested Visits Authorized [id number] Closed Specialty Services Required 06/17/2024 06/17/2025 6 6 Encounter Details Date Type Department Care Team (Late st Contact Info) Description 06/17/2024 Orders Only [facility] [address] [place] [address] [phone] Jaki Cruz MD [address] [place] [address] [phone] Chronic anemia (Primary Dx) Social History Tobacco [...] t he electric, gas, oil or water [employer] threatened to shut off services in your [...] Care Team (Late st Contact Info) Description 12/20/2024 9:00 AM EDT Office Visit [facility] MEDICINE [address] [place] [address] Marisa Livingston MD [address] [place] [address] 03/03/2025 3:00 PM EDT Office Visit [facility] OPTOMETRY [address] [place] [address] Em Mata OD [address] [place] [address] Pending Results Name Type Priority Associated Diagnoses [...] as of this encounter Care Teams Tile Fitter Relationship Specialty Start Date End Date Marisa Livingston MD [address] [place] [address] PCP - General Family Medicine 03/12/19 Perez Vergara RN [address] [place] [phone] Head Of MusicFrench Binder 06/30/24 09/30/24 documented as of this encounter
== END 2024-11-08 15:49 | disposition home or self-care (01) ==
LOC: HO.HCS 15:04
PROVIDERS: PCP Internal Medicine; Visit Provider Nurse Practitioner Family
DX: I42.9 Cardiomyopathy, unspecified (principal); R06.09 Other forms of dyspnea; R07.89 Other chest pain; R00.2 Palpitations; R06.01 Orthopnea; J45.909 Unspecified asthma, uncomplicated
CPT/HCPCS: 99214

== ENCOUNTER → 2024-11-08 15:04 | Outpatient (BNVA) | payer MEDICAID, SELFPAY | PROVIDERS: PCP Internal Medicine; Visit Provider Nurse Practitioner Family | DX: R00.2 Palpitations (principal); I42.9 Cardiomyopathy, unspecified; R06.09 Other forms of dyspnea; R07.89 Other chest pain; R06.01 Orthopnea; J45.909 Unspecified asthma, uncomplicated | CPT/HCPCS: 99212 ==

== ENCOUNTER → 2024-11-26 10:51 | Outpatient (REF) | payer MEDICAID, SELFPAY ==
--- NOTE | 2024-11-26 10:54 | HM_ITS ---
* Total monitoring time 2 days. * Underlying rhythm is sinus with an average rate of 87/Min. * Rare supraventricular ectopy. * Rare ventricular ectopy. * No significant pauses or high-grade AV blocks. * Chest discomfort, shortness of breath, dizziness in patient diary associated with sinus rhythm. MTDD
--- NOTE | 2024-11-26 10:54 | CA_ITS ---
Acquisition Time: 2024-11-26 11:57:21 Total Exercise Time: 00:06:50 Test Indications: Medications: Protocol: LESLY Max HR: 164 BPM 88% of Pred: 185 BPM Max BP: 119/64 mmHG Max Work Load: 8.2 METS Exercise stress test with exercise 6 mins 50 secs of Lesly Protocol, achieiving 87% MPHR, with reports 8/10 left sided chest pressure at baseline that gets worse with deep breaths and didnot change with exercise, reports SOB with exercise, without any arrythmias, with normotensive response to exercise. Without EKG changes meeting criteria for ischemia. In recovery, breathing returned to baseline and CP stayed the same. Echo images were obtained by tech at resy and post peak exercise. Definity contrast utilized. Test reviewed with Dr. Dey. Referred By: Galen Pierce Electronically Signed By: Efrain Estes
--- OUTSIDE RECORDS SUMMARY | 2024-11-26 11:27 | XMS_ITS | Encounter Summary ---
Author Organization [employer] Address [address] [place] [address] [facility] [place] [address] Care Team Providers Care It Communications Specialist Name Role Phone Marisa Livingston MD Primary Care Provider + Perez Vergara RN Unavailable [phone] Reason for Referral * Consultation (Routine) - Closed Specialty Diagnoses / Procedures Referred By Contac t Referred To Contact Hematology and Oncology Diagnoses Chronic anemia Jaki Cruz MD [address] [place] [address] Phone: tel: fax: [address] Phone: tel: fax: Referral ID Status Reason Start Date Expiration Date V isits Requested Visits Authorized [id number] Closed Specialty Services Required 06/17/2024 06/17/2025 6 6 Encounter Details Date Type Department Care Team (Late st Contact Info) Description 06/17/2024 Orders Only [facility] [address] [place] [address] [phone] Jaki Cruz MD [address] [place] [address] [phone] Chronic anemia (Primary Dx) Social History Tobacco [...] t he electric, gas, oil or water [employer] threatened to shut off services in your [...] Description 12/20/2024 9:00 AM EDT Office Visit [facility] MEDICINE [address] [place] [address] Marisa Livingston MD [address] [place] [address] 03/03/2025 3:00 PM EDT Office Visit [facility] OPTOMETRY [address] [place] [address] Em Mata OD [address] [place] [address] Pending Results Name Type Priority Associated Diagnoses [...] as of this encounter Care Teams It Communications Specialist Relationship Specialty Start Date End Date Marisa Livingston MD [address] [place] [address] PCP - General Family Medicine 03/12/19 Perez Vergara RN [address] [place] [phone] Moisture TesterService Correspondent 06/30/24 09/30/24 documented as of this encounter
== END ==
LOC: HO.CARD 10:51
PROVIDERS: PCP Internal Medicine; Visit Provider Internal Medicine Cardiovascular Disease
DX: R00.2 Palpitations (principal); R07.89 Other chest pain
CPT/HCPCS: 93225; 93350; Q9957

== ENCOUNTER → 2024-11-26 10:54 | Outpatient (BNV) | payer MEDICAID, SELFPAY | PROVIDERS: PCP Internal Medicine | DX: R06.02 Shortness of breath (principal) | CPT/HCPCS: 93016; 93018; 93350; 93352 ==

== ENCOUNTER 2024-12-20 09:56 | Outpatient (REF) | payer MEDICAID, SELFPAY ==
--- OUTSIDE RECORDS SUMMARY | 2024-12-20 10:36 | XMS_ITS | Encounter Summary ---
Author Organization [employer] Address [address] [place] [address] [facility] [place] [address] Care Team Providers Care Air Export Agent Name Role Phone Marisa Livingston MD Primary Care Provider + Perez Vergara RN Unavailable [phone] Reason for Referral * Consultation (Routine) - Closed Specialty Diagnoses / Procedures Referred By Contac t Referred To Contact Hematology and Oncology Diagnoses Chronic anemia Jaki Cruz MD [address] [place] [address] Phone: tel: fax: [address] Phone: tel: fax: Referral ID Status Reason Start Date Expiration Date V isits Requested Visits Authorized [id number] Closed Specialty Services Required 06/17/2024 06/17/2025 6 6 Encounter Details Date Type Department Care Team (Late st Contact Info) Description 06/17/2024 Orders Only [facility] [address] [place] [address] [phone] Jaki Cruz MD [address] [place] [address] [phone] Chronic anemia (Primary Dx) Social History Tobacco [...] Care Team (Late st Contact Info) Description 03/03/2025 3:00 PM EDT Office Visit [facility] OPTOMETRY [address] [place] [address] Em Mata OD [address] [place] [address] Pending Results Name Type Priority Associated Diagnoses [...] documented as of this encounter Care Teams Air Export Agent Relationship Specialty Start Date End Date Marisa Livingston MD [address] [place] [address] PCP - General Family Medicine 03/12/19 Perez Vergara RN [address] [place] [phone] Binder FixerSilk Winding Machine Operator 06/30/24 09/30/24 documented as of this encounter
[2024-12-20 11:39] LABS: Baso%MD 0.6 %; Eos%MD 4.5 %; Hematocrit 40.2 % (37.0-47.0); Hemoglobin 14.2 g/dl (12.0-16.0); IG%MD 0.3 %; Lymph%MD 20.8 %; Mean Corpuscular HGB Conc 35.3 g/dl (31.0-35.0); Mean Corpuscular Hemoglobin 29.4 pg (27.0-33.0); Mean Corpuscular Volume 83.2 fL (80.0-98.0); Mono%MD 8.0 %; NRBC Abs Auto 0.000 X10*3/uL (0.0-0.012); NRBC Pct Auto 0.0 /100WBC (0.0-0.2); Neut%MD 65.8 %; Platelet Count 335 X10*3/uL (160-400); Red Blood Count 4.83 X10*6/uL (4.20-5.50); White Blood Count 6.5 X10*3/uL (4.8-10.8)
[2024-12-20 12:14] LABS: Anion Gap 15 (12-20); Band Neutrophils Percent 0 % (3-5); Eosinophils Absolute Manual 0.3 X10*3/uL (0.0-0.4); Eosinophils Percent Manual 5 % (0-4); Lymphocytes Absolute Manual 1.8 X10*3/uL (1.2-4.9); Lymphocytes Percent Manual 27 % (20-40); Monocytes Absolute Manual 0.2 X10*3/uL (0.1-1.2); Monocytes Percent Manual 3 % (2-11); Neutrophils Absolute Manual 4.2 X10*3/uL (2.0-8.3); Neutrophils Percent Manual 65 % (45-73)
[2024-12-20 12:16] LABS: Ovalocytes 1+ (5-14) /OIF; RBC Morphology NOTED
[2024-12-20 12:22] LABS: Alanine Aminotransferase 19 U/L (0-31); Albumin Level 5.0 g/dL (3.5-5.0); Alkaline Phosphatase 73 U/L (39-117); Aspartate Amino Transferase 17 U/L (5-31); Blood Urea Nitrogen 12 mg/dL (9-16); Calcium 9.5 mg/dL (8.4-10.2); Carbon Dioxide 28 mmol/L (22-29); Chloride 105 mmol/L (96-108); Estimated Glomerular Filt Rate > 60; Iron 62 mcg/dL (30-160); Percent Iron Saturation 22 % (15-50); Potassium 2.9 mmol/L (3.3-5.1); Sodium 145 mmol/L (135-145); Total Iron Binding Capacity 286 mcg/dL (228-428); Total Protein 8.1 g/dL (6.5-8.0); Unsaturated Iron Binding 224 ug/dL
[2024-12-20 12:42] LABS: Ferritin 14 ng/mL (10-122)
[2024-12-20 12:44] LABS: HBS Num1 2.72 mIU/mL (0-7.99); HBc Num1 0.08 S/CO (0.00-0.79); HBsAGNum1 0.35 S/CO (0.00-0.99); Hepatitis A Antibody IgM 0.16 Index (0-0.79); Hepatitis B Surface Antigen Negative (Negative); ~HepC Num1 0.12 S/CO (0.00-0.79); ~Hepatitis A Antibody IgM Nonreactive (Nonreactive); ~Hepatitis B Surface Antibody NONREACTIVE (Nonreactive); ~Hepatitis C Antibody Nonreactive (Nonreactive)
== END 2024-12-20 09:57 | disposition home or self-care (01) ==
LOC: HO.HHCL 09:56
PROVIDERS: Nurse Practitioner Family; PCP Internal Medicine; Visit Provider Internal Medicine
DX: Z00.00 Encounter for general adult medical examination without abnormal findings (principal); N92.0 Excessive and frequent menstruation with regular cycle; D64.9 Anemia, unspecified; Z11.59 Encounter for screening for other viral diseases
CPT/HCPCS: 36415; 80053; 82728; 83540; 83615; 85007; 85027; 86704; 86706; 86709; 86787; 86803; 87340; 88184; 88185

== ENCOUNTER 2025-03-10 12:50 | Outpatient (REF) | payer MEDICAID, SELFPAY ==
--- NOTE | ~2025-03-10 | MM_ITS ---
EXAMINATION: MM DIAGNOSTIC DIGITAL BREAST TOMOSYNTHESIS, BILATERAL Bilateral Limited ultrasound. CLINICAL INFORMATION: Right breast pain lower inner quadrant for one month. Baseline mammogram. COMPARISON: Mammography: Comparison is made with relevant prior exams. TECHNIQUE: Digital breast mammography with tomosynthesis is performed in both the craniocaudal and mediolateral oblique views along with computer-aided detection (CAD). FINDINGS: There are scattered areas of fibroglandular density. Left: Asymmetry superior breast low axillary posterior depth region could represent a lymph node. No suspicious calcifications or other abnormal findings. Targeted color Doppler ultrasound scanning in the left low axilla left breast 12-4 o'clock demonstrates normal fibroglandular breast tissue. Right: [place] marker in the lower inner quadrant posterior depth without underlying abnormal finding at the site of patient's pain. No suspicious calcifications or other abnormal findings. Targeted color Doppler ultrasound scanning from 2-6 o'clock in the right breast demonstrates normal fibronodular breast tissue. There is no sonographic abnormal finding. Results are provided to the patient at time of visit by the technologist. MM/MM tomosynthesis diagnostic BI IMPRESSION: Left: Asymmetry lower axilla without sonographic correlate. Recommend 6 month follow-up left breast mammogram for further evaluation of stability. This area probably represents a axillary lymph node. Right: No mammographic or sonographic abnormal finding to account for the patient's right breast pain. Recommend clinical evaluation and follow-up. ASSESSMENT: BI-RADS Category 3: Probably benign RECOMMENDATION: 6 Month F/U This patient's information was entered into a reminder system with a target due date for their next mammogram. Electronically signed by: Yue Sandhu DO 03/10/2025 02:18 PM EDT
--- OUTSIDE RECORDS SUMMARY | 2025-03-10 15:59 | XMS_ITS | Encounter Summary ---
Author Organization [employer] Address [address] [facility] 7 [place] [address] Care Team Providers Care Flocculator Operator Name Role Phone Marisa Livingston MD Primary Care Provider + Perez Vergara RN Unavailable [phone] Reason for Visit * Reason Onset Date Comments Appointment Request 07/09/2024 Encounter Details Date Type Department Care Team ([facility] st Contact Info) Description 07/09/2024 Telephone [facility] MEDICINE [address] [place] [address] Marisa Livingston MD [address] [place] [address] Appointment Request Social History Tobacco Use Types [...] to reschedule appt with pcp. Contact pt, frisian documented in this encounter Plan of Treatment Upcoming Encounters Date Type Department Care Team (Late st Contact Info) Description 04/12/2025 3:30 PM EST Clinical Support [facility] DIABETES/NUTRITION [address] [place] [phone] [place], [place] [phone] 04/26/2025 11:15 AM EST Office Visit [facility] MEDICINE [address] [place], [place] [phone] Marisa Livingston MD [address] [place], [place] [phone] documented as of this encounter Visit Diagnoses Not on filedocumented in this encounter Additional Health Concerns Assessment Noted Time PHQ-9 Depression Total Score: 17 024 9:31 AM EST documented as of this encounter Care Teams Flocculator Operator Relationship Specialty Start Date End Date Marisa Livingston MD [address] [place] [address] PCP - General Family Medicine 03/12/19 Perez Vergara RN [address] [place] [phone] Mechanical SpecialistSenior Property Accountant 06/30/24 09/30/24 documented as of this encounter
--- OUTSIDE RECORDS SUMMARY | 2025-03-10 15:59 | XMS_ITS | Clinical Summary ---
Author Organization [employer] Address [address] [place] [address] Care Team Providers Care Glue Cook Name Role Phone Collins Izquierdo MD Primary Care Provider + Allergies Active [...] 23 Active albuterol 108 (90 Base) MCG/ACT inhalerIndicati ons:Moderate persistent asthma without complication Inhale 2 puffs every 4 (four) hours. 18 g 2 11/09/19 23 Active risperiDONE (RisperDAL) 2 MG tablet Take 1 tablet by mouth. Active OXcarbazepine (Trileptal) 300 MG tablet Take 1 tablet by mouth every 12 (twelve) hours. Active Nebulizers (Vios Aerosol Delivery System) [facility] [place] DIRECTED. 11/09/19 23 Active Fasenra Pen 30 MG/ML injection 02/20/20 23 Active SUMAtriptan (Imitrex) 100 MG tabletIndicatio ns:Migraine without aura, not refractory take 1/2-1 tablet by oral route once after the onset of a migraine attack;may repeat after 2 hours if headache returns, MDD = 4 tabs 30 tablet 3 07/08/19 24 Active ipratropium-alb uterol (Duo-Neb) 0.5-2.5 mg/3 mL nebulizer solutionIndicat ions:Moderate persistent asthma without complication USE 3 ML VIA NEBULIZER EVERY 6 HOURS NEEDED FOR WHEEZING 180 mL 2 10/08/19 24 Active ergocalciferol (Vitamin D2) 1.25 MG (57800 UT) capsule TAKE 1 CAPSULE(1.25 MG) BY MOUTH 1 TIME EVERY WEEK 12 capsule 1 06/08/19 25 Active benzonatate (Tessalon) 100 MG capsule Take 1 capsule by mouth every 8 (eight) hours if needed for cough. 05/27/19 25 Active Advair HFA 230-21 MCG/ACT inhalerIndicati ons:Moderate persistent asthma without complication INHALE 2 PUFFS BY MOUTH IN THE MORNING AND AT BEDTIME. RINSE MOUTH WITH WATER AFTER USE FOR AFTERTASTE AND INCIDENCE OF CANDIDIASIS. DO NOT SWALLOW 12 g 11 07/28/19 25 Active acetaminophen (Tylenol) 500 MG tablet Take 1 tablet (500 mg) by mouth every 6 (six) hours if needed for mild pain for up to 20 doses. 20 tablet 08/19/19 25 Active Blood Pressure Monitoring (Blood Pressure Cuff) [facility] [place] daily as prescribed 1 each 12/17/19 25 Active lidocaine (Lidoderm) 5 % patch APPLY 1 PATCH TOPICALLY ONCE PER DAY. REMOVE AND DISCARD WITHIN 12 HOURS OR DIRECTED BY 30 patch 12/30/19 25 Active Vraylar 1.5 MG capsule Take 1 capsule by mouth Once per day. 12/22/19 25 Active furosemide (Lasix) 40 MG tablet Take 40 mg by mouth in the morning. 11/03/19 25 Active Tirzepatide-Naveen ght Management (Zepbound) 5 MG/0.5ML solution auto-injector Inject 0.5 mL (5 mg) under the skin every 7 (seven) days. 2 mL 2 02/12/20 25 Active Tirzepatide-Naveen ght Management (Zepbound) 5 MG/0.5ML solution auto-injector Inject 0.5 mL (5 mg) under the skin every 7 (seven) days. 2 mL 02/02/20 25 025 Discontinued(R eorder (will not trigger notification to Pharmacy)) ibuprofen 600 MG tabletIndicatio ns:Breast pain, right Take 1 tablet (600 mg) by mouth every 8 (eight) hours if needed for moderate pain or fever. 30 tablet 02/02/20 25 025 Active Problems Problem Noted Date Diagnosed Date Menorrhagia with regular cycle 12/20/2024 Assessment & Plan (12/20/2024 11:46 AM EDT): Seen by PRINTER FLOOR COVERING ASSISTANT, declined hormonal treatment at the time. I told her to reach out to PRINTER FLOOR COVERING ASSISTANT again, discuss long-term plans including a potential , I told her that she may need to regulate menstrual cycle for some time before she gets . She tells me she would like to get in the future but on now, declines to use contraceptive medications. Start vitamins, she will bring medications at next visit and we will adjust medications with a future in mind. Check H&H and supplement with iron if needed Chronic systolic congestive heart failure 2024 Overview (12/20/2024 11:30 AM EDT): >>OVERVIEW FOR CARDIAC ENLARGEMENT WRITTEN ON 06/21/2024 9:33 AM BY RIGOBERTO FERGUSON MD Addendum 06/21/24 9:33 AM - CT/CT angio chest PE protocol done in ER 06/18/24 to r/o PE revealsed No evidence of pulmonary embolus or acute aortic syndrome. [id number] cardiac enlargement with predominantly biventricular dilatation. Enlarged main pulmonary artery suggesting pulmonary arterial hypertension. -will refer to cardiology Assessment & Plan (12/20/2024 11:42 AM EDT): There are no S/S of volume overload at this time. Patient should be on GAURAV inhibitor, will obtain cardiology notes and see if there is any contraindication for it, otherwise we will start low-dose lisinopril. Continue Lasix 40 mg/day and follow-up with cardiology Order labs Congratulated her on weight reduction, follow-up with me in 4 to 6 weeks Assessment & Plan (12/20/2024 11:30 AM EDT): >>ASSESSMENT AND PLAN FOR CARDIAC ENLARGEMENT WRITTEN ON 06/21/2024 9:34 AM BY RIGOBERTO FERGUSON MD Addendum 06/21/24 9:33 AM - CT/CT angio chest PE protocol done in ER 06/18/24 to r/o PE revealsed No evidence of pulmonary embolus or acute aortic syndrome. Fjsb-ei-nkcejfwv cardiac enlargement with predominantly biventricular dilatation. Enlarged main pulmonary artery suggesting pulmonary arterial hypertension. -will refer to cardiology Assessment & Plan (12/20/2024 11:30 AM EDT): >>ASSESSMENT AND PLAN FOR CARDIAC ENLARGEMENT WRITTEN ON 07/14/2024 10:53 AM BY RIGOBERTO LLANES Patient probably has Cor Pulmonale or Pulmonary HTN, FU echo results Cardiology referral pending Continue Lasix for now and check BMP prior to next visit. Advised regarding weight reduction and optimal control of asthma. Assessment & Plan (12/20/2024 11:30 AM EDT): >>ASSESSMENT AND PLAN FOR CARDIAC ENLARGEMENT WRITTEN ON 09/23/2024 3:55 PM BY COLLINS IZQUIERDO MD Status post influenza infection 3 months ago, she has appointment with cardiology next week Continue off Lasix and follow-up with cardiology Advised regarding weight reduction and optimal control of asthma Moderate persistent asthma without complication 06/17/2024 Assessment & Plan (09/23/2024 3:54 PM EDT): Significantly improved with with Advair and DuoNeb as needed, follow-up with cement and concrete plant worker PA for Fasenra still pending Will consider allergy testing after next pulmonology visit Advised regarding flu and COVID vaccinations in the fall Assessment & Plan (07/14/2024 10:59 AM EST): Uncontrolled, worsening s/p Influenza. Chronic exposure to environmental allergens and extreme temperatures. Continue close FU with Community Resource Consultant. Continue Advair plus Duo Neb, awaiting pa for Fasenra. Will consider allergy testing. Decreased vision in both eyes 01/06/2023 Assessment & Plan (05/05/2023 11:20 AM EST): Refer to ophtalmology Periodontal disease 12/18/2022 Dental calculus 12/18/2022 Exercise counseling 11/22/2022 Dietary counseling 11/22/2022 Bipolar depression (CMS/HCC) 11/08/2022 Assessment & Plan (12/20/2024 11:44 AM EDT): Doing better on Wellbutrin and trazodone, unclear if she still taking Risperdal or any other neuroleptic, will obtain medication list from psychiatry. Recommended to reach out to counseling where she used to see mental health prescriber, and request a new MH team. I will Rx medications until she is contacted again, as well as she continues to follow-up closely with me. Patient has crisis number, she is able to reach out for safety. Follow-up with me in 3 months Assessment & Plan (11/22/2022 1:35 PM EDT): doing well with current prescriber. Continue trileptal 300mg BID + trazidone and risperdal. She will address with her prescriber potential change on neuroleptic with less metabolic side effects pt feels safe at home and is able to contract for safety Blurring of visual image 07/03/2022 Chronic low back pain 07/03/2022 Knee pain 07/03/2022 Migraine without aura, not refractory 07/03/2022 Assessment & Plan (07/09/2023 7:18 PM EST): -Doing well. -Use Excedrin migraine TERESA migraine and Imatrex if not improved after 4h, can take up to 200mg daily PRN. Assessment & Plan (07/03/2022 12:50 PM EST): Order labs. Use excedrin migraine PRN and Imitrex 50-100mg for more severe migraine. FU with me next month. Numbness of hand 07/03/2022 Recurrent urinary tract infection 07/03/2022 Dyspnea [...] -Uncontrolled. -Restart Advair Diskus -Follow up with transitional studies instructor for immunotherapy. -Counseled on protocol for FMLA [...] gave today NBZ machine written prescription to [facility] nurse staff -Alarm signs and sx [...] anti-muscarinic inhaler as Trelegy -Referred today to cement and concrete plant worker for uncontrolled asthma Assessment & Plan (07/03/2022 12:50 PM EST): Uncontrolled. Start Flovent BID. She agreed to influenza and PCV 20 today, declined Covid IZ. DUB (dysfunctional uterine bleeding) 07/03/2022 Assessment & Plan (12/20/2024 11:31 AM EDT): >>ASSESSMENT AND PLAN FOR MENORRHAGIA WITH REGULAR CYCLE WRITTEN ON 04/16/2023 11:21 AM BY ALPESH NOLASCO Use Ibuprofen Schedule appt for pap smear with me Assessment & Plan (12/20/2024 11:31 AM EDT): >>ASSESSMENT AND PLAN FOR MENORRHAGIA WITH REGULAR CYCLE WRITTEN ON 07/09/2023 7:17 PM BY COLLINS IZQUIERDO MD -For More than 2 years -Slight increase in hemoglobin. -Refer to gynecology for further evaluation. -May consider progesterone only contraception. -Discussed possible options. -Counseled on intake of iron and vitamin c to aid in absorption. Assessment & Plan (12/20/2024 11:31 AM EDT): >>ASSESSMENT AND PLAN FOR MENORRHAGIA WITH REGULAR CYCLE WRITTEN ON 07/14/2024 10:51 AM BY RIGOBERTO LLANES Persistent, most probable cause of anemia. I will refer to Substation Operator Helper Generation at [facility] for treatment that may include IUD for one year as patient wants to get . She agreed to hormonal treatment if needed and delay until medical conditions are more stable. Assessment & Plan (09/23/2024 3:56 PM EDT): Improving but still significant, menstrual periods are more regular now. Follow- up with PRINTER FLOOR COVERING ASSISTANT Advised to continue p.o. iron as tolerated and follow-up with hematology as well She will follow-up with PRINTER FLOOR COVERING ASSISTANT regarding desire for after all medical conditions are more stable Assessment & Plan (07/03/2022 12:51 PM EST): Counseled to keep menstrual diary. Order CBC and iron studies. Obesity due to excess calories without serious c omorbidity 07/03/2022 Assessment & Plan (12/20/2024 11:41 AM EDT): Doing well on low-dose Zepbound, lost approximately 20 pounds in the past 3 months with a BMI below 30. Continue Zepbound 2.5 mg, stressed importance of following up closely with dietitian. I we will continue to send monthly refills until she is start seeing dietitian again. We discussed importance of adhering to medication doses and treatment, avoid getting medication from someone else. Follow-up with me in 3 months Assessment & Plan (09/23/2024 3:57 PM EDT): [...] exercise, life style modifications, diet, referral to customer engagement specialist. Discussed re lower calorie intake, increase [...] at home PAP smear: Overdue, refer to weld engineer will need further eval for DUB [...] date, next one due on October 2022. Resolved Problems Problem Noted Date Diagnosed Date Resolved Date Left shoulder pain 11/22/2022 Assessment & Plan [...] exercises FU with me in 3-4 weeks Accidental fall 07/03/2022 12/20/2024 Acute frontal sinusitis 07/03/2022 08/08/2024 Grief 07/03/2022 12/20/2024 Morbid obesity (CMS/HCC) 07/03/202208/2024 Assessment & Plan (05/05/2023 11:20 AM EST): Discussed re weight reduction options including exercise, life style modifications, diet, referral to customer engagement specialist. Discussed re lower calorie intake, increase dietary fiber Assessment & Plan (11/22/2022 1:34 PM EDT): Discussed re weight reduction options including exercise, life style modifications, diet, referral to customer engagement specialist. Discussed re lower calorie intake, increase dietary fiber Refer to dietitian Pain in wrist 07/03/2022 12/20/2024 Encounters Date Type Department Care Team Description 03/10/2025 Telephone [facility] WALK-IN CENTER [address] [place] [address] Collins Izquierdo MD 03/03/2025 3:00 PM EDT Office Visit [facility] OPTOMETRY [address] [place] [address] Em Mata, OD Migraine with aura and with status migrainosus, not intractable (Primary Dx); Accommodative insufficiency; Regular astigmatism of both eyes 03/03/2025 Travel 02/24/2025 Travel 02/22/2025 2:00 PM EDT Clinical Support [facility] DIABETES/NUTRITION [address] [place] [address] Jhonathan Pinedolie, RD Obesity due to excess calories without serious comorbidity, unspecified class (Primary Dx) 02/22/2025 Travel 02/16/2025 Travel 02/11/2025 Orders Only [facility] MEDICINE [address] [place] [phone] Collins Izquierdo MD 02/07/[address] [facility] MED & PEDS [address] [place] [address] Franco Brown MD 02/04/2025 8:00 AM EDT Office Visit [facility] ADULT DENTAL [address] [place] [address] Kirit Johnson 02/04/2025 Travel 02/03/2025 Telephone [facility] MEDICINE [address] [place] [phone] Collins Izquierdo MD Referral 02/01/2025 6:20 PM EDT Office Visit [facility] WALK[facility]IN [facility]ENTER [address] [place] [phone] Franco Brown MD Breast pain, right (Primary Dx) 02/01/2025 Travel 02/01/2025 Telephone [facility] MEDICINE [address] [place] [phone] Collins Izquierdo MD Nurse Triage 01/28/2025 Refill [facility] MEDICINE [address] [place] [phone] Collins Izquierdo MD 01/25/2025 3:30 PM EDT Clinical Support [facility] DIABETES/NUTRITION [address] [place] [phone] Daiana Pinedoe, RD Obesity due to excess calories without serious comorbidity, unspecified class (Primary Dx) 01/25/2025 Travel 01/24/2025 Telephone [facility] MEDICINE [address] [place] [phone] Daiana Pinedoe, RD Nutrition appt 01/21/2025 Telephone [facility] MEDICINE [address] [place] [phone] Collins Izquierdo MD Appointment Request; Letter for School/Work (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 Last office visit note reviewed, 18 patient should be able to complete [place] course as long as she continues close follow-up with both mental and medical providers, takes her medications. I also advised about completing immunizations ) 01/18/2025 1:00 PM EDT Clinical Support [facility] MEDICINE [address] [place] [address] Fidel Moore RN Encounter for immunization 01/18/2025 Travel 01/15/2025 Travel 01/13/2025 Telephone [facility] MEDICINE [address] [place] [address] Collins Izquierdo MD Appointment Request 01/10/2025 1:00 PM EDT Office Visit [facility] ADULT DENTAL [address] [place] [address] Trey Turner DDS 12/31/2024 8:00 AM EDT Office Visit [facility] ADULT DENTAL [address] [place] [address] Julian Quevedo 12/30/2024 Travel 12/29/2024 Refill [facility] MEDICINE [address] [place] [address] Collins Izquiredo MD 12/29/2024 Refill [facility] MEDICINE [address] [place] [address] Collins Izquierdo MD 12/28/2024 Refill [facility] MEDICINE [address] [place] [address] Collins Izquierdo MD 12/28/2024 Refill [facility] MEDICINE [address] [place] [address] Collins Izquierdo MD 12/24/2024 Telephone [facility] MEDICINE [address] [place] [address] Collins Izquierdo MD Prior Auth Prescription 12/22/2024 Refill [facility] MEDICINE [address] [place] [address] Collins Izquierdo MD 12/20/2024 9:00 AM EDT Office Visit [facility] MEDICINE [address] [place], [place] [phone] Collins Izquierdo MD Obesity due to excess calories without serious comorbidity, unspecified class (Primary Dx); Menorrhagia with regular cycle; Chronic systolic congestive heart failure (CMS/HCC); Bipolar depression (CMS/HCC) 12/20/[address] [phone] Sonja Moctezuma RN Results 12/20/2024 Orders Only GENERIC EXTERNAL DATA DEPARTMENT Provider, Generic External Data 12/20/2024 Travel 12/17/[address] [phone] Collins Izquierdo MD CHART PREP 12/13/2024 Patient Outreach [address] [address] Collins Izquierdo MD Pre-visit Planning (SDOH screening completed on 06/29/24); Nurse Triage from Last 3 Months Immunizations Immunization Administration Dates Next Due HepB-CpG 01/18/2025 Influenza injectable quadriv alent IIV4 with preservative [...] drink = 0.6 oz pur e alcohol) Alcohol Answer Date Recorded How often do you have a drink containing alcohol ? 1 12/20/2024 How many drinks containing a lcohol do you have on a typical day when you are drinking? 0 12/20/2024 Frequency of Binge Drinking Not on file 08/2024 Depression Answer Date Recorded Patient Health Questionnaire-9 [...] Answer Date Recorded Patient Health Questionnaire-2 Score 0 12/20/2024 Internet Access Answer Date Recorded Internet Access [...] Sign Reading Time Taken Comments Blood Pressure 123/74 02/01/2025 6:04 PM EDT Pulse 105 02/01/2025 6:04 PM EDT Temperature 36.4 C (97.6 F) 02/01/2025 6:04 PM EDT Respiratory Rate 18 12/20/2024 9:17 AM EDT Oxygen Saturation 99% 02/01/2025 6:04 PM EDT Inhaled Oxygen Concentration - - Weight 78.7 kg (173 lb 9.6 oz) 02/24/2025 11:54 AM EDT Height 162.6 cm (5' 4 ) 02/24/2025 11:54 AM EDT Body Mass Index 29.8 02/24/2025 11:54 AM EDT Plan of Treatment Upcoming Encounters Date Type Department Care Team (Late st Contact Info) Description 04/12/2025 3:30 PM EST Clinical Support [facility] DIABETES/NUTRITION [address] [place], [place] [phone] Mandi Pinedo RD [address] [place] [phone] 04/26/2025 11:15 AM EST Office Visit [facility] MEDICINE [address] [place], [place] [phone] Collins Izquierdo MD [address] [place], [place] [phone] Health Maintenance Due Date Last Done Comments HPV Vaccines (1 - 3-dose series) 12/06/2003 COVID-19 Vaccine ( - season) 2025 Influenza Vaccine (#1) 2025 , 07/03/2022, 02/18/2019, Additional history exists Dental Oral Exam 02/07/2025 08/06/2024, 02/27/2022 Hepatitis B Vaccines (2 of 2 - CpG 2-dose series) 02/15/2025 01/18/2025 Dental X-Ray: Bitewings 03/27/2025 03/26/2024, 02/27 Depression Monitoring 06/22/2025 12/20/2024, 025 SDOH Screening 06/29/2025 06/29/2024 Dental Prophylaxis 07/04/2025 12/31/2024, 03/26/2024 Family Planning (PISQ) 09/23/2025 09/23/2024 Alcohol/Substance Use Screening 12/20/2025 12/20/2024 Disability Screening 12/20/2025 12/20/2024 Tobacco Screening 03/03/2026 03/03/2025 Dental X-Ray: Full Mouth 08/08/2027 08/06/2024, 02/16 [...] Years) and At-Risk Patients (6 to 49) Years Completed 07/03/2022 HIV Screening Completed 12/09/2022 Hepatitis C Screening Completed 12/20/2024 HIB Vaccines Aged Out No longer eligi [...] Procedure Name Priority Date/Time Associated Diagnosis Comments BI US BREAST LIMITED BILATERAL Routine 03/10/2025 1:45 PM EDT BI MAMMOGRAM DIAGNOSTIC TOMOSYNTHESIS BILATERAL Routine 03/10/2025 1:07 PM EDT Breast pain, right CASE PRESENTATION, DETAILED AND EXTENSIVE TREATMENT PLANNING Routine 02/04/2025 8:00 AM EDT 5 MOD RESIN-BASED COMPOSITE - 3 SURF, POSTERIOR Routine 02/04/2025 8:00 AM EDT 11 ENDODONTIC THERAPY, ANTERIOR TOOTH Routine 01/10/2025 1:00 PM EDT CASE PRESENTATION, DETAILED AND EXTENSIVE TREATMENT PLANNING Routine 01/10/2025 1:00 PM EDT COMPREHENSIVE PERIODONTAL EVALUATION - NEW OR ESTABLISHED PATIENT Routine 12/31/2024 8:00 AM EDT ORAL HYGIENE INSTRUCTIONS Routine 12/31/2024 8:00 AM EDT PROPHYLAXIS - ADULT Routine 12/31/2024 8 :00 AM EDT CASE PRESENTATION, DETAILED AND EXTENSIVE TREATMENT PLANNING Routine 12/31/2024 8:00 AM EDT LEUKEMIA/LYMPHOMA EVALUATION Routine 12/20/2024 10:11 AM EDT PATHOLOGIST REVIEW - CBC Routine 12/20/2024 10:11 AM EDT LD Routine 12/20/2024 10:11 AM EDT IRON AND TOTAL IRON BINDING CAPACITY Routine 12/20/2024 10:11 AM EDT COMPREHENSIVE METABOLIC PANEL Routine 12/20/2024 10:11 AM EDT COMPLETE BLOOD COUNT MAN DIF Routine 12/20/2024 10:11 AM EDT HEPATITIS PANEL, GENERAL Routine 12/20/2024 10:11 AM EDT Menorrhagia with regular cycle FERRITIN Routine 12/20/2024 10:11 AM EDT Menorrhagia with regular cycle VARICELLA ZOSTER ANTIBODY, IGG Routine 12/20/2024 10:11 AM EDT Preventative health care PANORAMIC RADIOGRAPHIC IMAGE Routine 08/06/2024 11:00 AM EDT PERIODIC ORAL EVALUATION - ESTABLISHED PATIENT Routine 08/06/2024 11:00 AM EDT BITEWINGS - 4 RADIOGRAPHIC IMAGES Routine 03/26/2024 3:00 PM EST PAP SMEAR Routine 08/05/2023 3:15 PM EDT HIV ANTIBODY/ANTIGEN ([place] DPH) Routine 12/09/2022 1:30 PM EDT LIPID PANEL, STANDARD Routine 12/09/2022 1:30 PM EDT from Last 3 Months or Most Recently Relevant to Health Maintenance Results * BI US Breast Limited Bilateral (03/10/2025 1:45 PM EDT) Anatomical Region Laterality Modality Breast Bilateral Ultrasound 03/10/2025 1:[address] [facility] 03/10/2025 2:21 PM EDT [facility] [address] [place], [place] [address] Ultrasound Report Signed Patient: Cleo Rock MR#: [id number] : 1990 Acct:[id number] Age/Sex: 34 / F ADM Date: 03/10/25 Loc: HO.MAMMO Attending Dr: Franco Brown MD Ordering Physician: Franco Brown MD Date of Service: 03/10/25 Procedure(s): US Breast BI Limited Mamm Only Accession Number(s): [id number] cc: Collins Izquierdo MD; Franco Brown MD Reason for Exam: Right breast pain and firmness (medial lower quadrant).,lt ?density uoq EXAMINATION: MM DIAGNOSTIC DIGITAL BREAST TOMOSYNTHESIS, BILATERAL Bilateral Limited ultrasound. CLINICAL INFORMATION: Right breast pain lower inner quadrant for one month. Baseline mammogram. COMPARISON: Mammography: Comparison is made with relevant prior exams. TECHNIQUE: Digital breast mammography with tomosynthesis is performed in both the craniocaudal and mediolateral oblique views along with computer-aided detection (CAD). FINDINGS: There are scattered areas of fibroglandular density. Left: Asymmetry superior breast low axillary posterior depth region could represent a lymph node. No suspicious calcifications or other abnormal findings. Targeted color Doppler ultrasound scanning in the left low axilla left breast 12-4 o'clock demonstrates normal fibroglandular breast tissue. Right: [place] marker in the lower inner quadrant posterior depth without underlying abnormal finding at the site of patient's pain. No suspicious calcifications or other abnormal findings. Targeted color Doppler ultrasound scanning from 2-6 o'clock in the right breast demonstrates normal fibronodular breast tissue. There is no sonographic abnormal finding. Results are provided to the patient at time of visit by the technologist. US/US Breast BI Limited Mamm Only IMPRESSION: Left: Asymmetry lower axilla without sonographic correlate. Recommend 6 month follow-up left breast mammogram for further evaluation of stability. This area probably represents a axillary lymph node. Right: No mammographic or sonographic abnormal finding to account for the patient's right breast pain. Recommend clinical evaluation and follow-up. ASSESSMENT: BI-RADS Category 3: Probably benign RECOMMENDATION: 6 Month F/U This patient's information was entered into a reminder system with a target due date for their next mammogram. Electronically signed by: Yue Sandhu DO 03/10/2025 02:18 PM EDT Dictated By: Yue Sandhu DO Signed By: <Electronically signed by Yue Sandhu DO in OV> 03/10/25 1418 DD/ 1345 TD/TT: 03/10/25 1404 Cheese Pancake Roller: 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 Donotuseinterpreter, Image - [facility]/10/[facility] [address] [place] [address] Ultrasound Report Signed Patient: Cleo Rock JMR#: [id number] : 1990Acct:[id number] Age/Sex: 34 / FADM Date: 03/10/25 Loc: HO.MAMMO Attending Dr: Franco Brown MD Ordering Physician: Franco Brown MD Date of Service: 03/10/25 Procedure(s): US Breast BI Limited Mamm Only Accession Number(s): [id number] cc: Collins Izquierdo MD; Franco Brown MD Reason for Exam: Right breast pain and firmness (medial lowerquadrant).,lt ?density uoq EXAMINATION: MM DIAGNOSTIC DIGITAL BREAST TOMOSYNTHESIS, BILATERAL Bilateral Limited ultrasound. CLINICAL INFORMATION: Right breast pain lower inner quadrant for one month. Baseline mammogram. COMPARISON: Mammography: Comparison is made with relevant prior exams. TECHNIQUE: Digital breast mammography with tomosynthesis is performed in both the craniocaudal and mediolateral oblique views along with computer-aided detection (CAD). FINDINGS: There are scattered areas of fibroglandular density. Left: Asymmetry superior breast low axillary posterior depth region could represent a lymph node. No suspicious calcifications or other abnormal findings. Targeted color Doppler ultrasound scanning in the left low axilla left breast 12-4 o'clock demonstrates normal fibroglandular breast tissue. Right: [place] marker in the lower inner quadrant posterior depth without underlying abnormal finding at the site of patient's pain. No suspicious calcifications or other abnormal findings. Targeted color Doppler ultrasound scanning from 2-6 o'clock in the right breast demonstrates normal fibronodular breast tissue. There is no sonographic abnormal finding. Results are provided to the patient at time of visit by the technologist. US/US Breast BI Limited Mamm Only IMPRESSION: Left: Asymmetry lower axilla without sonographic correlate. Recommend 6 month follow-up left breast mammogram for further evaluation of stability. This area probably represents a axillary lymph node. Right: No mammographic or sonographic abnormal finding to account for the patient's right breast pain. Recommend clinical evaluation and follow-up. ASSESSMENT: BI-RADS Category 3: Probably benign RECOMMENDATION: 6 Month F/U This patient's information was entered into a reminder system with a target due date for their next mammogram. Electronically signed by: Yue Sandhu DO 03/10/2025 02:18 PM EDT Dictated By: Yue Sandhu DO Signed By: <Electronically signed by Yue Sandhu DO in OV> 03/10/25 1418 DD/ 1345 TD/TT: 03/10/25 1404 Cheese Pancake Roller: us Franco Brown MD IMG US PROCEDURES Edited Result - Final * BI Mammogram Diagnostic Tomosynthesis Bilateral (03/10/2025 1:07 PM EDT) Anatomical Region Laterality Modality Breast Bilateral Mammography 03/10/2025 1:07 PM EDT Narrative 03/10/2025 2:21 PM EDT [facility] [address] [place] [address] Mammography Report Signed Patient: Cleo Rock MR#: [id number] : 1990 Acct:[id number] Age/Sex: 34 / F ADM Date: 03/10/25 Loc: HO.MAMMO Attending Dr: Franco Brown MD Ordering Physician: Franco Borwn MD Results: 3Probably Be nign Date of Service: 03/10/25 Follow Up: 6 Month F/U Procedure(s): MM tomosynthesis diagnostic BI Accession Number(s): [id number] cc: Collins Izquierdo MD; Franco Brown MD Reason For Exam: Right breast pain and firmness (medial lower quadrant). EXAMINATION: MM DIAGNOSTIC DIGITAL BREAST TOMOSYNTHESIS, BILATERAL Bilateral Limited ultrasound. CLINICAL INFORMATION: Right breast pain lower inner quadrant for one month. Baseline mammogram. COMPARISON: Mammography: Comparison is made with relevant prior exams. TECHNIQUE: Digital breast mammography with tomosynthesis is performed in both the craniocaudal and mediolateral oblique views along with computer-aided detection (CAD). FINDINGS: There are scattered areas of fibroglandular density. Left: Asymmetry superior breast low axillary posterior depth region could represent a lymph node. No suspicious calcifications or other abnormal findings. Targeted color Doppler ultrasound scanning in the left low axilla left breast 12-4 o'clock demonstrates normal fibroglandular breast tissue. Right: [place] marker in the lower inner quadrant posterior depth without underlying abnormal finding at the site of patient's pain. No suspicious calcifications or other abnormal findings. Targeted color Doppler ultrasound scanning from 2-6 o'clock in the right breast demonstrates normal fibronodular breast tissue. There is no sonographic abnormal finding. Results are provided to the patient at time of visit by the technologist. MM/MM tomosynthesis diagnostic BI IMPRESSION: Left: Asymmetry lower axilla without sonographic correlate. Recommend 6 month follow-up left breast mammogram for further evaluation of stability. This area probably represents a axillary lymph node. Right: No mammographic or sonographic abnormal finding to account for the patient's right breast pain. Recommend clinical evaluation and follow-up. ASSESSMENT: BI-RADS Category 3: Probably benign RECOMMENDATION: 6 Month F/U This patient's information was entered into a reminder system with a target due date for their next mammogram. Electronically signed by: Yue Sandhu DO 03/10/2025 02:18 PM EDT Dictated By: Yue Sandhu DO Signed By: <Electronically signed by Yue Sandhu DO in OV> 03/10/25 1418 DD/ 1307 TD/TT: 03/10/25 1330 Cheese Pancake Roller: 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 Donotuseinterpreter, Image - [facility] [address] [place], [place] [address] Mammography Report Signed Patient: Cleo Rock JMR#: [id number] : 1990Acct:[id number] Age/Sex: 34 / FADM Date: 03/10/25 Loc: HO.MAMMO Attending Dr: Franco Brown MD Ordering Physician: Franco Brown MDResults: 3Probably Be nign Date of Service: 03/10/25Follow Up: 6 Month F/U Procedure(s): MM tomosynthesis diagnostic BI Accession Number(s): [id number] cc: Collins Izquierdo MD; Franco Brown MD Reason For Exam: Right breast pain and firmness (medial lower quadrant). EXAMINATION: MM DIAGNOSTIC DIGITAL BREAST TOMOSYNTHESIS, BILATERAL Bilateral Limited ultrasound. CLINICAL INFORMATION: Right breast pain lower inner quadrant for one month. Baseline mammogram. COMPARISON: Mammography: Comparison is made with relevant prior exams. TECHNIQUE: Digital breast mammography with tomosynthesis is performed in both the craniocaudal and mediolateral oblique views along with computer-aided detection (CAD). FINDINGS: There are scattered areas of fibroglandular density. Left: Asymmetry superior breast low axillary posterior depth region could represent a lymph node. No suspicious calcifications or other abnormal findings. Targeted color Doppler ultrasound scanning in the left low axilla left breast 12-4 o'clock demonstrates normal fibroglandular breast tissue. Right: [place] marker in the lower inner quadrant posterior depth without underlying abnormal finding at the site of patient's pain. No suspicious calcifications or other abnormal findings. Targeted color Doppler ultrasound scanning from 2-6 o'clock in the right breast demonstrates normal fibronodular breast tissue. There is no sonographic abnormal finding. Results are provided to the patient at time of visit by the technologist. MM/MM tomosynthesis diagnostic BI IMPRESSION: Left: Asymmetry lower axilla without sonographic correlate. Recommend 6 month follow-up left breast mammogram for further evaluation of stability. This area probably represents a axillary lymph node. Right: No mammographic or sonographic abnormal finding to account for the patient's right breast pain. Recommend clinical evaluation and follow-up. ASSESSMENT: BI-RADS Category 3: Probably benign RECOMMENDATION: 6 Month F/U This patient's information was entered into a reminder system with a target due date for their next mammogram. Electronically signed by: Yue Sandhu DO 03/10/2025 02:18 PM EDT RP Dictated By: Yue Sandhu DO Signed By: <Electronically signed by Yue Sandhu DO in OV> 03/10/25 1418 DD/ 1307 TD/TT: 03/10/25 1330 Cheese Pancake Roller: us Franco Brown MD IMG BI PROCEDURES Edited Result - Final * Pathologist Review - CBC (12/20/2024 10:11 AM EDT) Pathologist Review - CBC SEE NOTE [facility] Comment:- Unremarkable perip heral smear.Reviewed by Emmy Bah MD 12/20/2024 10:1 1 AM EDT 12/20/2024 11:16 AM EDT us Collins Izquierdo MD LAB BLOOD ORDERABLES Fin al Result [facility] [address] [place] [phone] * (ABNORMAL) Complete Blood Count Manual Diff (12/20/2024 10:11 AM EDT) White Blood Count 6.5 4.8 - 10.8 X10*3/uL [facility] Red Blood Count 4.83 4.20 - 5.50 X10*6/uL [facility] Hemoglobin 14.2 12.0 - 16.0 g/dl [facility] Hematocrit 40.2 37.0 - 47.0 % [facility] Mean Corpuscular Volume 83.2 80.0 - 98.0 fL [facility] Mean Corpuscular Hemoglobin 29.4 27.0 - 33.0 pg [facility] Mean Corpuscular HGB Conc 35.3(H) 31.0 - 35.0 g/dl [facility] Red Cell Distribution Width 12.2 11.0 - 16.0 % [facility] Platelet Count 335 160 - 400 X10*3/uL [facility] Mean Platelet Volume 9.7 9.4 - 12.3 fL [facility] NRBC Pct Auto 0.0 0.0 - 0.2 /100WBC [facility] NRBC Abs Auto 0.000 0.0 - 0.012 X10*3/uL [facility] Neutrophils % Manual 65 45 - 73 % [facility] Band Neutrophils Percent 0(L) 3 - 5 % [facility] Lymphocytes Percent Manual 27 20 - 40 % [facility] Monocytes Percent Manual 3 2 - 11 % [facility] EOSINOPHILS % MANUAL 5(H) 0 - 4 % [facility] NEUTROPHILS ABSOLUTE MANUAL 4.2 2.0 - 8.3 X10*3/uL [facility] LYMPHOCYTES ABSOLUTE MANUAL 1.8 1.2 - 4.9 X10*3/uL [facility] MONOCYTES ABSOLUTE MANUAL 0.2 0.1 - 1.2 X10*3/uL [facility] EOSINOPHILS ABSOLUTE MANUAL 0.3 0.0 - 0.4 X10*3/uL [facility] Platelet Estimate NORMAL [facility] Platelet Morphology Comment [facility] RBC Morphology NOTED [facility] Ovalocytes 1+ (5-14) /OIF [facility] 12/20/2024 10:1 1 AM EDT 12/20/2024 11:16 AM EDT us Generic External Data Provider LAB BLOOD ORDERAB LES Final Result [facility] [address] [place] [phone] * Hepatitis A,B,C Profile (12/20/2024 10:11 AM EDT) Hepatitis A IgM Nonreactive Nonreactive [facility] Comment:IgM antibodies to QUINONEZ V not detected; does not exclude earlyacute or recovered HAV infection. ~Hepatitis B Surface Antibody NONREACTIVE Nonreactive [facility] Comment:Nonreactive: < 8.00 mIU/mL Hepatitis B Core Antibody Nonreactive Nonreactive [facility] Hepatitis C Antibody Nonreactive Nonreactive [facility] Comment:Antibodies to HCV no t detected; does not exclude early acuteHCV infection. Hepatitis B Surface Ag Negative Negative [facility] Blood Venous blood specimen / Unknown 12/20/2024 10:11 AM EDT 12/20/2024 11:13 AM EDT us Collins Izquierdo MD LAB BLOOD ORDERABLES Fin al Result Performing Organization Address [facility] Co de Phone Number [facility] [address] [place] [phone] * Leukemia/Lymphoma Evaluation (12/20/2024 10:11 AM EDT) LLE Interpretation See Note [facility] Comment:See report from [employer] in the EMR. 12/20/2024 10:1 1 AM EDT 12/20/2024 11:16 AM EDT Narrative [facility] - 12/23/2024 8:54 AM EDT Smudge cells on manual [id number] us Generic External Data Provider LAB PATHOLOGY ORD ERABLES Final Result Performing Organization Address [facility] Co de Phone Number [facility] [address] [place] [phone] * Iron And Total Iron Binding Capacity (12/20/2024 10:11 AM EDT) Iron 62 30 - 160 mcg/dL [facility] Total Iron Binding Capacity 286 228 - 428 mcg/dL [facility] Percent Iron Saturation 22 15 - 50 % [facility] Unsaturated Iron Binding 224 ug/dL [facility] 12/20/2024 10:1 1 AM EDT 12/20/2024 11:13 AM EDT us Generic External Data Provider LAB BLOOD ORDERAB LES Final Result Performing Organization Address [facility] de Phone Number [facility] [address] [place] [phone] * Varicella Zoster Antibody, IgG (12/20/2024 10:11 AM EDT) Varicella IgG Antibody 22.00 S/CO [facility] Comment:Signal to Cut-off S/ CO Interpretation --------- <1.00 Negative - Antibody not detected > or = 1.00 Positive - Antibody detected A positive result indicates that the patient has antibody to VZV but does not differentiate between an active or past infection. The clinical diagnosis must be interpreted in conjunction with the clinical signs and symptoms of the patient. This assay reliably measures immunity due to previous infection but may not be sensitive enough to detect antibodies induced by vaccination. Thus, a negative result in a vaccinated individual does not necessarily indicate susceptibility to VZV infection. A more sensitive test for vaccination-induced immunity is Varicella Zoster Virus Antibody Immunity Screen, ACIF.THIS TEST WAS PERFORMED AT:[employer] [address] [phone] JONES MD Blood Venous blood specimen / Unknown 12/20/2024 10:11 AM EDT 12/20/2024 11:13 AM EDT us Collins Izquierdo MD LAB BLOOD ORDERABLES Fin al Result Performing Organization Address [facility] Co de Phone Number [facility] [address] [place] [phone] * Lactate Dehydrogenase (LD) (12/20/2024 10:11 AM EDT) Lactate Dehydrogenase 196 122 - 220 U/L [facility] 12/20/2024 10:1 1 AM EDT 12/20/2024 11:13 AM EDT us Generic External Data Provider LAB BLOOD ORDERAB LES Final Result Performing Organization Address City/[facility]/ZIP Co de Phone Number [facility] [address] [place] [phone] * Ferritin (12/20/2024 10:11 AM EDT) Ferritin 14 10 - 122 ng/mL [facility] Blood Venous blood specimen / Unknown 12/20/2024 10:11 AM EDT 12/20/2024 11:13 AM EDT us Collins Izquierdo MD LAB BLOOD ORDERABLES Fin al Result Performing Organization Address [facility] Co de Phone Number [facility] [address] [place] [phone] * (ABNORMAL) Comprehensive Metabolic Panel (12/20/2024 10:11 AM EDT) Sodium 145 135 - 145 mmol/L [facility] Potassium 2.9(LL) 3.3 - 5.1 mmol/L [facility] Comment:Critical value for t est(s): K Results called to and readback by: SONJA Billings Person calling: HANH Date:12/20/2024Time:12:20 Chloride 105 96 - 108 mmol/L [facility] Carbon Dioxide 28 22 - 29 mmol/L [facility] Anion Gap 15 12 - 20 [facility] Urea Nitrogen (BUN) 12 9 - 16 mg/dL [facility] Creatinine, Serum 0.69 0.5 - 1.4 mg/dL [facility] Estimated Glomerular Filt Rate >60 [facility] Comment:Chronic Kidney Disea se: Estimated GFR < 60 mL/min/1.59x5Lfyyxa Kidney Disease: Estimated GFR < 15 mL/min/1.73m2 Glucose 76 60 - 115 mg/dL [facility] Calcium 9.5 8.4 - 10.2 mg/dL [facility] Bilirubin, Total 1.1(H) 0.0 - 1.0 mg/dL [facility] Aspartate Amino Transferase 17 5 - 31 U/L [facility] Alanine Aminotransferase 19 0 - 31 U/L [facility] Total Protein 8.1(H) 6.5 - 8.0 g/dL [facility] Albumin Level 5.0 3.5 - 5.0 g/dL [facility] Alkaline Phosphatase 73 39 - 117 U/L [facility] 12/20/2024 10:1 1 AM EDT 12/20/2024 11:13 AM EDT us Generic External Data Provider LAB BLOOD ORDERAB LES Final Result Performing Organization Address City/State/[facility] Co de Phone Number [facility] [address] [place] [phone] * Pap Smear (08/05/2023 3:15 PM EDT) 08/05/2023 3:15 PM EDT 08/07/2023 1:00 PM EDT Narrative [facility] - 08/18/2023 1:17 PM EDT ----- ------- Name: Cleo Rock Age/Sex: 32/F : 1990 Unit#: [id number] Attend Dr: Amaris Salgado CNM Re08/05/23 Status: DEP REF Location: [facility] Disch: ----- ------- SPEC : [id number] RECD: 08/07/23-1299 STATUS: DENISHA DYER NUM: [id number] MEAGAN: 08/05/23-1515 [facility] [address] ENTERED: 08/07/23-1418 SP TYPE: Pap Smr OTHR DR: Collins Izquierdo MD ORDERED: Pap Smear Interpretation Satisfactory for evaluation. Negative for intraepithelial lesion or malignancy. HPV mRNA E6/E7: NOT DETECTED This assay detects E6/E7 viral messenger RNA (mRNA) from 14 high-risk HPV types (16, 18, 31, 33, 35, 39, 45, 51, 52, 56, 58, 59, 66, 68) HPV testing performed by [employer], [place], [place]. See reference laboratory portion of the EMR for entire report. Clinical Information LMP: 07/17/23 Previous PAP test: 09/17/17, WNL Material Received ThinPrep-Cervical Copies To: Collins Izquierdo MD [address] [place] [phone] Amaris Salgado [address] [address] ----- ------- Signed (signature on file) IDANIA Hutchinson (ASC) 08/18/23 1317 ----- ------- END OF REPORT Generic External Data Provider LAB CYTOLOGY GILBERT UGARTE Final Result Performing Organization Address [facility]/ZIP Co de Phone Number [facility] [address] [place] [phone] * HIV Ab/Ag (IRAJ MARIA) (12/09/2022 1:30 PM EDT) HIV AB/AG Nonreactive Nonreactive [facility] Comment:HIV-1 p24 Ag and/or HIV-1/HIV-2 Ab not detected.A test result that is nonreactive does not exclude thepossibility of exposure to or infection with HIV-1 and/orHIV-2. Nonreactive results in this assay for individualswith prior exposure to HIV-1 and/or HIV-2 may be due toantigen and antibody levels that are below the limit ofdetection of this assay.The [employer] HIV Ag/Ab Combo assay result andsupplemental assay results should be interpreted inconjunction with the patient's clinical presentation,history and other laboratory results. If the results areinconsistent with clinical evidence, additional testing issuggested to confirm the result. 12/09/2022 1:30 PM EDT 12/09/2022 4:12 PM EDT us Collins Izquierdo MD LAB BLOOD ORDERABLES Fin al Result Performing Organization Address [facility]/ZIP Co de Phone Number [facility] [address] [place] [phone] * Lipid Panel, Standard (12/09/2022 1:30 PM EDT) Triglycerides 56 mg/dL [facility] Comment:Desirable Triglyceri de: less than 150 mg/dLBorderline High Triglyceride 150-199 mg/dLHigh Triglyceride: 200-499 mg/dLVery High Triglyceride: greater than or equal to 5OO mg/dL Cholesterol 114 mg/dL [facility] Comment:Desirable Cholestero l: less than 200 mg/dLBorderline High Cholesterol: 200-239 mg/dLHigh Cholesterol: greater than 239 mg/dL LDL Cholesterol Calculated 65 mg/dl [facility] Comment:Desirable LDL: less than 100 mg/dLNear Optimal/Above Optimal LDL: 110- 129 mg/dLBorderline High LDL: 130-159 mg/dLHigh LDL: 160-189 mg/dLVery High LDL: greater than or equal to 190 mg/dL HDL Cholesterol 38 mg/dL [facility] Comment:Desirable HDL: great er than 40 mg/dL Note: This HDL assay may give artificially low results in patients with liver disease. 12/09/2022 1:30 PM EDT 12/09/2022 4:12 PM EDT us Collins Izquierdo MD LAB BLOOD ORDERABLES Fin al Result [facility] [address] [place] [phone] from Last 3 Months or Most Recently Relevant to Health Maintenance Insurance [facility] [employer] AD[place] Care Teams Glue Cook Relationship Specialty Start Date End Date Collins Izquierdo MD [address] [place] [phone] PCP - General Family Medicine 03/12/19
--- OUTSIDE RECORDS SUMMARY | 2025-03-10 15:59 | XMS_ITS | Encounter Summary ---
Author Organization [employer] Address [address] [place] [address] Care Team Providers Care Magnetic Tape Composer Operator Name Role Phone Marisa Livingston MD Primary Care Provider + Encounter Details Date Type Department Care Team ([facility] st Contact Info) Description 03/10/2025 Telephone [facility] [address] [place], [place] [phone] Marisa Livingston MD [address] [place] [address] Social History Tobacco Use Types Packs/Day Years [...] encounter Miscellaneous Notes * Telephone Encounter - Noemi Barnes RN - 03/10/2025 3:24 PM EDT Patient seen in [facility] in [place] 02/01/2025 for breast pain at which time Mammo and US ordered which has resulted Be-rads 3 with recommendation of 6 month follow up. [facility] documented in this encounter Plan of Treatment Upcoming Encounters Date Type Department Care Team (Late st Contact Info) Description 04/12/2025 3:30 PM EST Clinical Support [facility] DIABETES/NUTRITION [address] [place] [address] [place] [address] 04/26/2025 11:15 AM EST Office Visit [facility] MEDICINE [address] [place] [address] Marisa Livingston MD [address] [place] [address] documented as of this encounter Visit Diagnoses Not on filedocumented in this encounter Additional Health Concerns Assessment Noted Time PHQ-9 Depression Total Score: 17 025 9:47 AM EST documented as of this encounter Care Teams Magnetic Tape Composer Operator Relationship Specialty Start Date End Date Marisa Livingston MD [address] [place] [address] PCP - General Family Medicine 03/12/19 documented as of this encounter
--- OUTSIDE RECORDS SUMMARY | 2025-03-10 15:59 | XMS_ITS | Encounter Summary ---
Author Organization [employer] Address [address] [place] [address] Care Team Providers Care Software Licensing Executive Name Role Phone Marisa Livingston MD Primary Care Provider + Perez Vergara RN Unavailable [phone] Reason for Visit * Reason Comments Med Refill Encounter Details Date Type Department Care Team (Late st Contact Info) Description 05/27/2024 Refill [facility] MEDICINE [address] [place] [address] Marisa Livingston MD [address] [place] [address] Social History Tobacco Use Types Packs/Day Years [...] Description 04/12/2025 3:30 PM EST Clinical Support [facility] DIABETES/NUTRITION [address] [place] [phone] [place] [address] 04/26/2025 11:15 AM EST Office Visit [facility] MEDICINE [address] [place] [phone] Marisa Livingston MD [address] [place] [phone] documented as of this encounter Visit Diagnoses Not on filedocumented in this encounter Additional Health Concerns Assessment Noted Time PHQ-9 Depression Total Score: 17 024 9:31 AM EST documented as of this encounter Care Teams Software Licensing Executive Relationship Specialty Start Date End Date Marisa Livingston MD [address] [place] [address] PCP - General Family Medicine 03/12/19 Perez Vergara RN [address] [place] [phone] [employer] EngineerOther Sports Official 06/30/24 09/30/24 documented as of this encounter
--- OUTSIDE RECORDS SUMMARY | 2025-03-10 15:59 | XMS_ITS | Encounter Summary ---
Author Organization [employer] Address [address] [facility] 7t [place] [address] Care Team Providers Care Resolution Agent Name Role Phone Marisa Livingston MD Primary Care Provider + Perez Vergara RN Unavailable [phone] Reason for Visit * Reason Comments Med Refill Encounter Details Date Type Department Care Team (Late st Contact Info) Description 09/25/2024 Refill [facility] MED[facility]INE 230 [place] [address] Marisa Livingston MD 230 [place] [address] Social History Tobacco Use Types Packs/Day Years [...] Description 04/12/2025 3:30 PM EST Clinical Support [facility] DIABETES/NUTRITION [address] [place] [address] [place] [address] 04/26/2025 11:15 AM EST Office Visit [facility] MEDICINE [address] [place] [address] Marisa Livingston MD [address] [place] [address] documented as of this encounter Visit Diagnoses Not on filedocumented in this encounter Additional Health Concerns Assessment Noted Time PHQ-9 Depression Total Score: 17 025 9:47 AM EST documented as of this encounter Care Teams Resolution Agent Relationship Specialty Start Date End Date Marisa Livingston MD [address] [place] [address] PCP - General Family Medicine 03/12/19 Perez Vergara RN [address] [place] [address], [place] [address] Retail GreeterBaster Hand 06/30/24 09/30/24 documented as of this encounter
--- OUTSIDE RECORDS SUMMARY | 2025-03-10 15:59 | XMS_ITS | Encounter Summary ---
Author Organization [employer] Address 75 [facility] 7t [place] [address] Care Team Providers Care Eap Counselor Name Role Phone Marisa Livingston MD Primary Care Provider + Perez Vergara RN Unavailable [phone] Reason for Visit * Reason Comments Med Refill Encounter Details Date Type Department Care Team (Late st Contact Info) Description 03/04/2024 Refill [facility] MEDICINE 230 [place] [address] Marisa Livingston MD 230 [place] [address] Social History Tobacco Use Types Packs/Day Years [...] Description 04/12/2025 3:30 PM EST Clinical Support [facility] DIABETES/NUTRITION [address] [place] [address] 230 [place] [address] 04/26/2025 11:15 AM EST Office Visit [facility] MEDICINE [address] [place] [address] Marisa Livingston MD [address] [place] [address] documented as of this encounter Visit Diagnoses Not on filedocumented in this encounter Additional Health Concerns Assessment Noted Time PHQ-9 Depression Total Score: 17 024 9:31 AM EST documented as of this encounter Care Teams Eap Counselor Relationship Specialty Start Date End Date Marisa Livingston MD 230 [place] [address] PCP - General Family Medicine 03/12/19 Perez Vergara RN [address] [place] [address] Guest Service Team LeaderFarmworker 06/30/24 09/30/24 documented as of this encounter
--- OUTSIDE RECORDS SUMMARY | 2025-03-10 15:59 | XMS_ITS | Encounter Summary ---
Author Organization [employer] Address [address] [facility] 7t [place] [address] Care Team Providers Care Furnace Maintenance Name Role Phone Marisa Livingston MD Primary Care Provider + Perez Vergara RN Unavailable [phone] Encounter Details Date Type Department Care Team ([facility] Contact Info) Description 07/19/2022 Abstract [facility] ADULT DENTAL 230 [place] [address] Berlin Hagen, DMD [address] [place] [address] Social History Tobacco Use Types Packs/Day Years [...] Description 04/12/2025 3:30 PM EST Clinical Support [facility] DIABETES/NUTRITION 230 [place], [place] [phone] Mandi P[address]o [address] 230 [place] [address] 04/26/2025 11:15 AM EST Office Visit [facility] MEDICINE 230 [place] [address] Marisa Livingston MD [address] [place] [address] documented as of this encounter Visit Diagnoses Not on filedocumented in this encounter Additional Health Concerns Assessment Noted Time PHQ-9 Depression Total Score: 4 07/03/19 23 10:39 AM EST documented as of this encounter Care Teams Furnace Maintenance Relationship Specialty Start Date End Date Marisa Livingston MD [address] [place] [address] PCP - General Family Medicine 03/12/19 Perez Vergara RN [address] [place] [address] Eyewear ConsultantRemote Sensing Advisor 06/30/24 09/30/24 documented as of this encounter
--- OUTSIDE RECORDS SUMMARY | 2025-03-10 15:59 | XMS_ITS | Encounter Summary ---
Author Organization [employer] Address 75 [facility] 7 [place] [address] Care Team Providers Care Hydroelectric Plant Electrician Name Role Phone Marisa Livingston MD Primary Care Provider + Reason for Visit * Reason Comments Med Refill Encounter Details Date Type Department Care Team ([facility] st Contact Info) Description 12/28/2024 Refill [facility] MEDICINE 230 [place] [address] Marisa Livingston MD 230 [place] [address] Social History Tobacco Use Types Packs/Day Years [...] the past 12 months, has t he QA on Request, gas, oil or water company threatened to [...] Description 04/12/2025 3:30 PM EST Clinical Support [facility] DIABETES/NUTRITION [address] [place] [address] Mandi Pinedo, MEAGAN 230 [place] [address] 04/26/2025 11:15 AM EST Office Visit [facility] MEDICINE [address] [place] [address] Marisa Livingston MD [address] [place] [address] documented as of this encounter Visit Diagnoses Not on filedocumented in this encounter Additional Health Concerns Assessment Noted Time PHQ-9 Depression Total Score: 17 025 9:47 AM EST documented as of this encounter Care Teams Hydroelectric Plant Electrician Relationship Specialty Start Date End Date Marisa Livingston MD [address] [place] [address] PCP - General Family Medicine 03/12/19 documented as of this encounter
--- OUTSIDE RECORDS SUMMARY | 2025-03-10 15:59 | XMS_ITS | Encounter Summary ---
Author Organization [employer] Address [address] [place] [address] [facility] [place] [address] Care Team Providers Care Comic Illustrator Name Role Phone Mairsa Livingston MD Primary Care Provider + Perez Vergara RN Unavailable [phone] Reason for Referral * Consultation (Routine) - Closed Specialty Diagnoses / Procedures Referred By Contac t Referred To Contact Hematology and Oncology Diagnoses Chronic anemia Jaki Cruz MD [address] [place] [address] Phone: tel: fax: [address] Phone: tel: fax: Referral ID Status Reason Start Date Expiration Date V isits Requested Visits Authorized [id number] Closed Specialty Services Required 06/17/2024 06/17/2025 6 6 Encounter Details Date Type Department Care Team (Late st Contact Info) Description 06/17/2024 Orders Only [facility] [address] [place] [address] [phone] Jaki Cruz MD [address] [place] [address] [phone] Chronic anemia (Primary Dx) Social History Tobacco [...] t he electric, gas, oil or water [employer] threatened to shut off services in your [...] Description 04/12/2025 3:30 PM EST Clinical Support [facility] DIABETES/NUTRITION [address] [place] [address] 230 [place] [address] 04/26/2025 11:15 AM EST Office Visit [facility] MEDICINE [address] [place] [address] Marisa Livingston MD 230 [place], [place] [phone] Pending Results Name Type Priority Associated Diagnoses [...] documented as of this encounter Care Teams Comic Illustrator Relationship Specialty Start Date End Date Marisa Livingston MD 230 [place] [address] PCP - General Family Medicine 03/12/19 Perez Vergara RN 505 [place] [address] Orchard SprayerAged Or Disabled Care Worker 06/30/24 09/30/24 documented as of this encounter
--- OUTSIDE RECORDS SUMMARY | 2025-03-10 15:59 | XMS_ITS | Encounter Summary ---
Author Organization [employer] Address [address] [facility] [address] 7t [place] [address] Care Team Providers Care General Doc Name Role Phone Marisa Livingston MD Primary Care Provider + Perez Vergara RN Unavailable [phone] Reason for Visit * Reason Onset Date Comments Appointment 07/12/2022 Encounter Details Date Type Department Care Team (Late st Contact Info) Description 07/12/2022 Telephone [facility] ADULT DENTAL 230 [place] [address] Yeison Arnold, DMD [address] [place] [address] Appointment Social History Tobacco Use Types Packs/Day [...] 3:30 PM EST Clinical Support [facility] DIABETES/NUTRITION [address] [place] [address] 230 [place] [address] 04/26/2025 11:15 AM EST Office Visit [facility] MEDICINE 230 [place] [address] Marisa Livingston MD 230 [place] [address] documented as of this encounter Visit Diagnoses Not on filedocumented in this encounter Additional Health Concerns Assessment Noted Time PHQ-9 Depression Total Score: 4 07/03/19 23 10:39 AM EST documented as of this encounter Care Teams General Doc Relationship Specialty Start Date End Date Marisa Livingston MD 230 [place] [address] PCP - General Family Medicine 03/12/19 Perez Vergara RN [address] [place] [address] Boiler Service TechnicianEntry Rep 06/30/24 09/30/24 documented as of this encounter
--- OUTSIDE RECORDS SUMMARY | 2025-03-10 16:00 | XMS_ITS | Encounter Summary ---
Author Organization [employer] Address 75 [facility] 7 [place] [address] Care Team Providers Care Scribing Machine Operator Name Role Phone Marisa Livingston MD Primary Care Provider + Reason for Visit * Reason Comments Med Refill Encounter Details Date Type Department Care Team ([facility] st Contact Info) Description 12/22/2024 Refill [facility] MED[facility]INE 230 [place] [address] Marisa Livingston MD 230 [place] [address] Social History Tobacco Use Types Packs/Day Years [...] the past 12 months, has t he [employer], gas, oil or water company threatened to [...] Description 04/12/2025 3:30 PM EST Clinical Support [facility] DIABETES/NUTRITION [address] [place] [address] Mandi Pinedo, MEAGAN 230 [place] [address] 04/26/2025 11:15 AM EST Office Visit [facility] MEDICINE [address] [place] [address] Marisa Livingston MD [address] [place] [address] documented as of this encounter Visit Diagnoses Not on filedocumented in this encounter Additional Health Concerns Assessment Noted Time PHQ-9 Depression Total Score: 17 025 9:47 AM EST documented as of this encounter Care Teams Scribing Machine Operator Relationship Specialty Start Date End Date Marisa Livingston MD [address] [place] [address] PCP - General Family Medicine 03/12/19 documented as of this encounter
--- OUTSIDE RECORDS SUMMARY | 2025-03-10 16:00 | XMS_ITS | Encounter Summary ---
Author Organization [employer] Address 75 [facility] 7 [place] [address] Care Team Providers Care Methods And Procedures Analyst Name Role Phone Marisa Livingston MD Primary Care Provider + Reason for Visit * Reason Onset Date Comments Appointment Request 01/13/2025 Encounter Details Date Type Department Care Team ([facility] st Contact Info) Description 01/13/[address] [facility] MEDICINE 230 [place] [address] Marisa Livingston MD 230 [place] [address] Appointment Request Social History Tobacco Use Types [...] encounter Miscellaneous Notes * Telephone Encounter - Rodrigue Denise - 01/13/2025 12:34 PM EDT TC from pt wanting to schedule director skills visit . documented in this encounter Plan of Treatment Upcoming Encounters Date Type Department Care Team (Late st Contact Info) Description 04/12/2025 3:30 PM EST Clinical Support [facility] DIABETES/NUTRITION [address] [place] [address] 230 [place] [address] 04/26/2025 11:15 AM EST Office Visit [facility] MEDICINE [address] [place] [address] Marisa Livingston MD 230 [place] [address] documented as of this encounter Visit Diagnoses Not on filedocumented in this encounter Additional Health Concerns Assessment Noted Time PHQ-9 Depression Total Score: 17 025 9:47 AM EST documented as of this encounter Care Teams Methods And Procedures Analyst Relationship Specialty Start Date End Date Marisa Livingston MD 230 [place] [address] PCP - General Family Medicine 03/12/19 documented as of this encounter
--- OUTSIDE RECORDS SUMMARY | 2025-03-10 16:00 | XMS_ITS | Encounter Summary ---
Author Organization [employer] Address 75 [facility] 7 [place] [address] Care Team Providers Care Developmental Education Instructor Name Role Phone Marisa Livingston MD Primary Care Provider + Reason for Visit * Reason Comments Med Refill Encounter Details Date Type Department Care Team ([facility] st Contact Info) Description 12/29/2024 Refill [facility] MED[facility]INE 230 [place] [address] Marisa Livingston MD 230 [place] [address] Social History Tobacco Use Types Packs/Day Years [...] encounter Miscellaneous Notes * Telephone Encounter - [place] LPN - 12/31/2024 12:06 PM EDT Pt is requesting a PA for Zepbound 2.5 Mg . Is pt staying on this same dose or will there be an increase? documented in this encounter Plan of Treatment Upcoming Encounters Date Type Department Care Team (Late st Contact Info) Description 04/12/2025 3:30 PM EST Clinical Support [facility] DIABETES/NUTRITION [address] [place] [phone] [place] [address] 04/26/2025 11:15 AM EST Office Visit [facility] [address] [place] [address] Marisa Livingston MD [address] [place] [address] documented as of this encounter Visit Diagnoses Not on filedocumented in this encounter Additional Health Concerns Assessment Noted Time PHQ-9 Depression Total Score: 17 025 9:47 AM EST documented as of this encounter Care Teams Developmental Education Instructor Relationship Specialty Start Date End Date Marisa Livingston MD [address] [place] [address] PCP - General Family Medicine 03/12/19 documented as of this encounter
--- OUTSIDE RECORDS SUMMARY | 2025-03-10 16:00 | XMS_ITS | Encounter Summary ---
Author Organization [employer] Address [address] [place] [address] 7 [place] [address] Care Team Providers Care Chefs Name Role Phone Marisa Livingston MD Primary Care Provider + Perez Vergara RN Unavailable [phone] Encounter Details Date Type Department Care Team (Late st Contact Info) Description 06/27/2022 Abstract [facility] ADULT DENTAL 230 [place] [address] Jeramie Treadwell DDS 230 [place] [address] Social History Tobacco Use Types Packs/Day Years [...] Description 04/12/2025 3:30 PM EST Clinical Support [facility] DIABETES/NUTRITION 230 [place] [address] [place] [address] 04/26/2025 11:15 AM EST Office Visit [facility] MEDICINE [address] [place] [address] Marisa Livingston MD [address] [place] [address] documented as of this encounter Visit Diagnoses Not on filedocumented in this encounter Care Teams Chefs Relationship Specialty Start Date End Date Marisa Livingston MD [address] [place] [address] PCP - General Family Medicine 03/12/19 Perez Vergara, RN [address] [place] [address] Manufacturing Quality InspectorRadiology Orderly 06/30/24 09/30/24 documented as of this encounter
--- OUTSIDE RECORDS SUMMARY | 2025-03-10 16:00 | XMS_ITS | Encounter Summary ---
Author Organization [employer] Address [address] [place] [address] 7t [place] [address] Care Team Providers Care Commercial Airplane Pilot Name Role Phone Marisa Livingston MD Primary Care Provider + Perez Vergara RN Unavailable [phone] Encounter Details Date Type Department Care Team (Latest Contact Info) Description 02/27/2022 Abstract [facility] CONVERSIONS Dental, Provider, DDS Social [...] Description 04/12/2025 3:30 PM EST Clinical Support [facility] DIABETES/NUTRITION [address] [place] [address] [place] [address] 04/26/2025 11:15 AM EST Office Visit [facility] MEDICINE [address] [place] [address] Marisa Livingston MD 230 [place] [address] documented as of this encounter Visit Diagnoses Not on filedocumented in this encounter Care Teams Commercial Airplane Pilot Relationship Specialty Start Date End Date Marisa Livingston MD 230 [place] [address] PCP - General Family Medicine 03/12/19 Perez Vergara RN [address] [place] [address] Stab Setter And DrillerCokeman 06/30/24 09/30/24 documented as of this encounter
--- OUTSIDE RECORDS SUMMARY | 2025-03-10 16:00 | XMS_ITS | Encounter Summary ---
Author Organization [employer] Address [address] [place] [address] 7t [place] [address] Care Team Providers Care Gem Setter Name Role Phone Marisa Livingston MD Primary Care Provider + Perez Vergara RN Unavailable [phone] Encounter Details Date Type Department Care Team (Latest Contact Info) Description 03/26/2019 Abstract [facility] CONVERSIONS Dental, Provider, DDS Social [...] Description 04/12/2025 3:30 PM EST Clinical Support [facility] DIABETES/NUTRITION [address] [place] [address] 230 [place] [address] 04/26/2025 11:15 AM EST Office Visit [facility] MEDICINE [address] [place] [address] Marisa Livingston MD 230 [place] [address] documented as of this encounter Visit Diagnoses Not on filedocumented in this encounter Care Teams Gem Setter Relationship Specialty Start Date End Date Marisa Livingston MD [address] [place] [address] PCP - General Family Medicine 03/12/19 Perez Vergara RN [address] [place] [address] Stock Preparation OperatorServices Manager 06/30/24 09/30/24 documented as of this encounter
--- OUTSIDE RECORDS SUMMARY | 2025-03-10 16:00 | XMS_ITS | Encounter Summary ---
Author Organization [employer] Address 75 [facility] 7 [place] [address] Care Team Providers Care Social Worker Clinical Name Role Phone Marisa Livingston MD Primary Care Provider + Reason for Visit * Reason Onset Date Comments Med Refill 12/29/2024 Encounter Details Date Type Department Care Team (Late st Contact Info) Description 12/29/2024 Refill [facility] MEDICINE 230 [place] [address] Marisa Livingston MD 230 [place] [address] Social History Tobacco Use Types Packs/Day Years [...] Description 04/12/2025 3:30 PM EST Clinical Support [facility] DIABET[facility]/NUTRITION [address] [place] [address] [place] [address] 04/26/2025 11:15 AM EST Office Visit [facility] MED[facility] [address] [place] [address] Marisa Livingston MD [address] [place] [address] documented as of this encounter Visit Diagnoses Not on filedocumented in this encounter Additional Health Concerns Assessment Noted Time PHQ-9 Depression Total Score: 17 025 9:47 AM EST documented as of this encounter Care Teams Social Worker Clinical Relationship Specialty Start Date End Date Marisa Livingston MD [address] [place] [address] [place] [address] PCP - General Family Medicine 03/12/19 documented as of this encounter
== END 2025-03-10 12:51 | disposition home or self-care (01) ==
LOC: HO.MAMMO 12:50
PROVIDERS: PCP Internal Medicine; Visit Provider Family Medicine
DX: N64.4 Mastodynia (principal)
CPT/HCPCS: 76642; 77062; 77066

== ENCOUNTER → 2025-03-10 13:00 | Outpatient (BNV) | payer MEDICAID, SELFPAY | PROVIDERS: PCP Internal Medicine; Visit Provider Internal Medicine | DX: N64.4 Mastodynia (principal) | CPT/HCPCS: 76642; 77062; 77066 ==